=== PATIENT | female | born 1940 | race Caucasian/White ===

== ENCOUNTER → 2016-07-02 | Outpatient (CLI) | payer BC ==
[~2016-07-02] MED LIST: ANT25 PO; ASPI81TA28 PO; ATV1 PO; CINNAMON PO; CLOP1TAB15 PO; CLTP PO; COLE1TAB PO; CRANBERRY CAPS PO; CYAN10005 PO; CYCL10TA6 PO; FURO-85 PO; FURO20TA PO; IMD/2 PO; METO25TA56 PO; OMEG10007 PO; PRLSR20 PO; RANI300T2 PO; RXC5 PO; TRAM-453 PO; VITAMIN D 3 PO; [UNRECOGNIZED DRUG - CODE] PO
[2016-07-02 18:10] LABS: BASO % 0.4 %; BASO ABS # 0.02 K/uL (0-0.2); COMPLETE YES; EOS % 1.9 %; HEMATOCRIT 38.5 % (37-47); LYMPH ABS # 1.55 K/uL (1.2-3.4); MEAN CELL VOLUME 92.1 fL (80-100); MEAN CORPUSCULAR HEMOGLOBIN 32.1 pg (25-34); MEAN CORPUSCULAR HGB CONC 34.8 g/dl (32-36); MEAN PLATELET VOLUME 9.4 fL (7.4-10.4); MONO % 11.2 %; NEUT % 57.5 %; PLATELET COUNT 206 K/uL (130-400); RED BLOOD COUNT 4.18 M/uL (4.2-5.4); WHITE BLOOD COUNT 5.34 K/uL (4.8-10.8)
[2016-07-02 18:19] LABS: ALT/SGPT 39 U/L (12-78); AST/SGOT 42 U/L (15-37); BLOOD UREA NITROGEN 22 mg/dl (7-18); BUN/CREATININE RATIO 14.3 (10-20); CALCIUM 9.4 mg/dl (8.5-10.1); CARBON DIOXIDE 27 mmol/L (21-32); CHLORIDE 105 mmol/L (98-107); GLUCOSE 103 mg/dl (70-99); POTASSIUM 4.1 mmol/L (3.5-5.1); SODIUM 141 mmol/L (136-145)
[2016-07-02 18:29] LABS: ALB/GLOB RATIO 1.1 (0.9-2); ALKALINE PHOSPHATASE 173 U/L (45-117)
== END | disposition home or self-care (01) ==
LOC: C.LABMFLN 11:22
PROVIDERS: ATTEND Family Medicine
DX: I47.1 Supraventricular tachycardia (principal); R41.3 Other amnesia

== ENCOUNTER → 2016-07-24 | Outpatient (CLI) | payer BC ==
--- NOTE | 2016-07-24 16:18 | MAMMOGRAPHY REPORT ---
UNILATERAL LEFT DIGITAL SCREENING MAMMOGRAM TOMOSYNTHESIS WITH CAD: 07/24/2016 CLINICAL HISTORY: Annual left breast screening. Personal history of right breast cancer status post mastectomy. COMPARISON: Comparison is made to exams dated: 01/31/2011 mammogram, 11/08/2010 mammogram - [facility], 08/03/2010 mammogram, 09/06/2010 mammogram - [facility], and 2010 ultrasound - [facility]. TECHNIQUE: Breast tomosynthesis in addition to standard 2D mammography was performed. Current study was also evaluated with a Computer Aided Detection (CAD) system. BREAST COMPOSITION: There are scattered areas of fibroglandular density in the left breast. FINDINGS: There are approximately 5 lymph nodes visualized in the superior left breast, projecting over the pectoralis muscle on the MLO view. The most inferior lymph node is increased in size cassius red to prior mammograms, currently measuring 10 mm, and there is a less prominent fatty hilum when c omparing to the prior exams. Definitive characterization with targeted ultrasound is recommended. There are also possible faint grouped microcalcifications in the 12:00 left breast, warranting spot magnification views. No areas of architectural distortion or obvious new breast masses are seen. IMPRESSION: ACR BI-RADS CATEGORY 0: INCOMPLETE EVALUATION: NEED ADDITIONAL IMAGING EVALUATION The enlarged 10 mm left axillary lymph node and grouped microcalcifications in the 12:00 left breast need additional imaging evaluation. The patient will be called to schedule an appointment. Approximately 10% of breast cancers are not detected with mammography. A negative mammographic repor t should not delay biopsy if a clinically suggestive mass is present. Farzana Hinson M.D. ay/:07/24/2016 14:45:44 Engraver Tender: Kina WESTON)(Og), [facility] letter sent: Addl Imaging 0 BI-RADS Code: ACR BI-RADS Category 0: Incomplete Evaluation: Need Additional Imaging Evaluation
== END | disposition home or self-care (01) ==
LOC: C.MAMM 13:18
PROVIDERS: ATTEND Family Medicine
DX: Z12.31 Encounter for screening mammogram for malignant neoplasm of breast (principal); R59.0 Localized enlarged lymph nodes; R92.0 Mammographic microcalcification found on diagnostic imaging of breast

== ENCOUNTER → 2016-08-02 | Outpatient (CLI) | payer BC ==
--- NOTE | 2016-08-03 07:31 | MAMMOGRAPHY REPORT ---
UNILATERAL LEFT DIGITAL DIAGNOSTIC MAMMOGRAM AND TARGETED LEFT ULTRASOUND: 08/02/2016 CLINICAL HISTORY: Callback from screening mammogram for left breast calcifications and left axillary lymph node. TECHNIQUE: Spot magnification left CC and ML views were obtained. COMPARISON: Comparison is made to exams dated: 07/24/2016 mammogram - [facility], 09/06/2010 mammogram - [facility], 01/31/2011 mammogram, 11/08/2010 mammogram - [facility], and 08/03/2010 mammogram - [facility]. Comparison is also m deonna to prior outside mammograms dated 09/02/2013, 05/13/2012, 08/16/2011, 04/08/2009, 04/01/2008.. BREAST COMPOSITION: There are scattered areas of fibroglandular density in the left breast. FINDINGS: Spot magnification views of the left breast demonstrate monomorphic punctate calcificatio ns seen scattered throughout the left breast, best seen on the cc spot magnification views. When co mpared to prior exams, the calcifications are likely not significantly changed compared to similar t o prior exams including the 04/08/2009 exam, although it is difficult to make an accurate comparison due to differences in mammographic technique between the current and prior exams. Given the benign morphology and distribution and possible stability, the calcifications are probably benign. Targeted ultrasound was performed of the left axilla to evaluate the left axillary lymph nodes. The re is an axillary lymph node in the left axilla which measures 7 mm. This retains a normal fatty hi lum and has a uniform cortical thickness of approximately 2 mm, within normal limits. This correspo nds with the lymph node seen mammographically which appears more prominent compared to prior exams. Given that this has a normal morphology on ultrasound, it is probably benign. Other morphologicall y normal lymph nodes are seen within the left axilla, with no clear adenopathy evident. IMPRESSION: ACR-BI-RADS CATEGORY 3: PROBABLY BENIGN, TARGETED ULTRASOUND ACR-BI-RADS CATEGORY 3: DC OBABLY BENIGN 1. Scattered punctate benign-appearing calcifications within the left breast are likely stable dati ng back to at least the the 2008 exam, and are likely more conspicuous due to differences in mammogr aphic technique. Recommend follow-up diagnostic mammograms in 6 months to compare stability on spot magnification views. 2. The prominent left axillary lymph node appears morphologically normal on ultrasound with a víctor l cortical thickness, and is probably benign. Recommend follow-up diagnostic mammograms and possibl e ultrasound in 6 months to confirm stability. The patient has been verbally notified of the results. Approximately 10% of breast cancers are not detected with mammography. A negative mammographic repor t should not delay biopsy if a clinically suggestive mass is present. Carmen Franklin M.D. ah/:08/02/2016 15:06:09 Desk Attendant: Liliana ALFONSO(R)(M), [facility] letter sent: Follow Up Recommended 3 BI-RADS Code: ACR-BI-RADS Category 3: Probably Benign Ultrasound BI-RADS: ACR-BI-RADS Category 3: P robably Benign
== END | disposition home or self-care (01) ==
LOC: C.MAMM 13:34
PROVIDERS: ATTEND Family Medicine
DX: R92.1 Mammographic calcification found on diagnostic imaging of breast (principal)

== ENCOUNTER → 2016-08-30 | Outpatient (CLI) | payer BC ==
[~2016-08-30] MED LIST changes: +ATV/1 PO; +CALC500C70 PO; +MECL1TAB42 PO
[2016-08-30 17:48] LABS: HEMATOCRIT 39.3 % (37-47); MEAN CELL VOLUME 90.8 fL (80-100); MEAN CORPUSCULAR HEMOGLOBIN 31.2 pg (25-34); MEAN CORPUSCULAR HGB CONC 34.4 g/dl (32-36); MEAN PLATELET VOLUME 9.4 fL (7.4-10.4); PLATELET COUNT 210 K/uL (130-400); RED BLOOD COUNT 4.33 M/uL (4.2-5.4); WHITE BLOOD COUNT 6.65 K/uL (4.8-10.8)
[2016-08-30 18:05] LABS: BLOOD UREA NITROGEN 30 mg/dl (7-18); BUN/CREATININE RATIO 21.3 (10-20); CALCIUM 9.4 mg/dl (8.5-10.1); CARBON DIOXIDE 27 mmol/L (21-32); CHLORIDE 104 mmol/L (98-107); GLUCOSE 107 mg/dl (70-99); POTASSIUM 4.3 mmol/L (3.5-5.1); SODIUM 138 mmol/L (136-145)
[2016-08-30 18:06] LABS: PHOSPHORUS 3.3 mg/dl (2.5-4.9)
== END | disposition home or self-care (01) ==
LOC: C.LABMFLN 09:13
PROVIDERS: ATTEND Internal Medicine Nephrology
DX: I12.9 Hypertensive chronic kidney disease with stage 1 through stage 4 chronic kidney disease, or unspecified chronic kidney disease (principal); E55.9 Vitamin D deficiency, unspecified; N18.3 Chronic kidney disease, stage 3 (moderate); R60.9 Edema, unspecified

== ENCOUNTER → 2016-08-31 | Outpatient (CLI) | payer BC ==
[2016-08-31 17:49] LABS: URINE APPEARANCE CLEAR (CLEAR); URINE BILIRUBIN NEG (NEG); URINE COLOR YELLOW; URINE EPITHELIAL CELL AUTO 0-5 /lpf (0-5); URINE NITRITE NEG (NEG); URINE SPECIFIC GRAVITY 1.019 (1.000-1.030); UROBILINOGEN NEG (NEG)
[2016-08-31 17:53] LABS: MANUAL MICROSCOPIC REQUIRED? NO; REVIEW REQ? NO
[2016-08-31 18:08] LABS: URINE PROTIEN/CREAT RATIO 0.1 (0-0.2); URINE TOTAL PROTEIN 12.7 mg/dl (0-11.9)
== END | disposition home or self-care (01) ==
LOC: C.LABMFLN 10:39
PROVIDERS: ATTEND Internal Medicine Nephrology
DX: N18.3 Chronic kidney disease, stage 3 (moderate) (principal); R60.9 Edema, unspecified; I12.9 Hypertensive chronic kidney disease with stage 1 through stage 4 chronic kidney disease, or unspecified chronic kidney disease; E55.9 Vitamin D deficiency, unspecified

== ENCOUNTER → 2016-10-15 | Outpatient (CLI) | payer BC ==
[~2016-10-15] MED LIST changes: +HYDR-5688 PO; +TRAM-10 PO
[2016-10-15 15:43] LABS: INFLUENZA A PCR Neg for Influ A (NEG); INFLUENZA B PCR Neg for Influ B (NEG)
== END | disposition home or self-care (01) ==
LOC: C.LABMFLN 08:32
PROVIDERS: ATTEND Physician Assistant
DX: R05 Cough (principal); R68.89 Other general symptoms and signs

== ENCOUNTER → 2017-02-06 | Outpatient (CLI) | payer BC ==
--- NOTE | 2017-02-07 14:04 | MAMMOGRAPHY REPORT ---
UNILATERAL LEFT DIGITAL DIAGNOSTIC MAMMOGRAM TOMOSYNTHESIS WITH CAD AND TARGETED LEFT ULTRASOUND: 02/06 CLINICAL HISTORY: Six-month follow-up of left breast calcifications and left breast lymph node. TECHNIQUE: Breast tomosynthesis in addition to standard 2D mammography was performed. Current study was also evaluated with a Computer Aided Detection (CAD) system. Left CC and MLO 2-D and tomosynthes is images and spot magnification left CC and ML images were obtained. COMPARISON: Comparison is made to exams dated: 08/02/2016 ultrasound, 08/02/2016 mammogram, 07/24/2016 ma mmogram, 01/31/2011 mammogram, 11/08/2010 mammogram - [facility], and 09/06/2010 mammogr am - [facility]. BREAST COMPOSITION: The tissue of the left breast is heterogeneously dense, which may obscure small masses. FINDINGS: The previously described left axillary lymph node has increased in size mammographically, currently measuring 2.1 x 1.7 cm, previously measuring 10 x 9 mm. There is possible left areolar ski n thickening which is new from prior exams. Spot magnification views of the left breast again demons trate punctate benign-appearing calcifications scattered throughout the left breast, not significantl y changed compared to the August 2016 exam and likely present dating back to the 2008 exam. The re mainder of the left breast is stable compared to prior exams, without suspicious masses, calcificatio ns, or areas of architectural distortion noted. A biopsy marker clip is again noted in the left uppe r outer quadrant. Targeted ultrasound was performed of the left axilla, which shows an abnormal left axillary lymph nod e which is increased compared to prior exams and demonstrates abnormal cortical thickening, currently measuring 2.2 x 1.8 x 1.2 cm. A few other smaller morphologically abnormal lymph nodes are also see n which demonstrate cortical thickening and are increased compared to prior exams. Findings are inde terminate and ultrasound-guided core needle biopsy is recommended for further evaluation. Targeted ultrasound was performed of the subareolar and periareolar region, which shows no clear mass or other suspicious sonographic abnormality. On clinical exam, the left nipple was partially invert ed and the nipple and areola are somewhat nodular. The patient was unclear if this is the way her ni pple areolar complex normally appears. IMPRESSION: ACR BI-RADS CATEGORY 4C: MODERATE SUSPICION FOR MALIGNANCY, TARGETED ULTRASOUND ACR BI-R ADS CATEGORY 4C: MODERATE SUSPICION FOR MALIGNANCY 1. Abnormal left axillary lymph nodes, increased compared to the prior August 2016 exam. The larg est lymph node measures 2.2 cm in size. Findings are suspicious and ultrasound guided core needle bi opsy is recommended for further evaluation. 2. Punctate benign-appearing calcifications scattered throughout the left breast are not significant ly changed compared to the Aug 2016 and likely also the 2008 exams. However, given the abnormal left axillary lymph nodes, stereotactic biopsy is recommended to rule out the possibility of DCIS. 3. Possible mild left areolar thickening mammographically. On clinical exam the left nipple is part ially inverted and the left nipple-areolar complex is somewhat nodular in appearance; the patient was unsure if this is the way her nipple normally appears. No suspicious subareolar mass is noted on ul trasound. Recommend clinical follow-up. Based on the results of the left breast/axillary biopsies, the patient may need a biopsy by a surgeon for further evaluation. A phone call was made to the physician's office to confirm faxed results were received. The patient has been verbally notified of the results. She tentatively scheduled the biopsies before leaving the department. I will leave it up to her physician if she can safely discontinue Plavix for 5-7 days p rior to the procedures. Approximately 10% of breast cancers are not detected with mammography. A negative mammographic report should not delay biopsy if a clinically suggestive mass is present. Carmen Franklin M.D. ah/:02/07/2017 07:53:30 Television Receiver Analyzer: Cassandra ALFONSO(Jewel)(M), [facility] letter sent: Abnormal 4/5 BI-RADS Code: ACR BI-RADS Category 4C: Moderate Suspicion For Malignancy Ultrasound BI-RADS: ACR BI- RADS Category 4C: Moderate Suspicion For Malignancy
== END | disposition home or self-care (01) ==
LOC: C.MAMM 13:15
PROVIDERS: ATTEND Family Medicine
DX: Z90.11 Acquired absence of right breast and nipple (principal); R92.1 Mammographic calcification found on diagnostic imaging of breast; R91.1 Solitary pulmonary nodule; R59.0 Localized enlarged lymph nodes

== ENCOUNTER → 2017-02-15 | Outpatient (CLI) | payer BC ==
--- NOTE | 2017-02-15 12:36 | Discharge Instructions ---
Discharge Instructions Procedure Procedure Date: Feb 15, 2017. Reason for visit: Left Calcifications/Us Core Bx L Axillary Ln. Discharge Discharge Date: Feb 15, 2017. Discharge Diagnosis: status post breast biopsy Instructions Activity Recommendations: Additional Limitations (see below) Return to School/Work: no limitations Recommended Home Diet: No Limitations Provider Instructions: ACTIVITY RECOMMENDATIONS: * No lifting, pushing, pulling or exercising the affected side for three days. RETURN TO SCHOOL/WORK: * You may return to work/school after the procedure, but do not perform any strenuous activities for 24 to 48 hours. MEDICATIONS: * Tylenol (two 325 mg) every four to six hours if needed for mild pain (if not allergic to Tylenol). DIET: * Resume previous diet. SPECIAL CARE INSTRUCTIONS: * Keep biopsy site dry for 24 hours. May shower after 24 hours, but do not soak (bathe) incision. * May remove Tegaderm (plastic patch) tomorrow AFTER showering. * Leave the steri-strips on for one week. Allow the steri-strips to fall off by themselves. If not off after one week, you may remove them. You may place a Bandaid crosswise over the strips, if desired. * Apply ice 10 minutes on and 10 minutes off as needed. * Wear a bra at bedtime to sleep more comfortably for 2-3 days. * Your referring physician should have the results after approximately 5 to 7 business days. * Call for unusual bleeding, fever, drainage, etc or if you have any questions call during normal business hours or after hours call Dr Franklin, [phone]. FOLLOW UP VISIT: Follow-up with Referring Physician as scheduled. Allergies Coded Allergies: Amoxicillin (Verified Allergy, Unknown, hives, 12/22/14) Azithromycin (Verified Allergy, Unknown, hives, 12/22/14) Clavulanic Acid (Verified Allergy, Unknown, hives, 12/22/14) Ketorolac Tromethamine (Verified Allergy, Unknown, 'increased bleeding', ) per pt, had bleeding at epidural site and was told it was d/t toradol Meperidine (Verified Allergy, Unknown, HIVES, 12/22/14) Penicillins (Unverified Allergy, Unknown, hives, 12/22/14) Sulfa Drugs (Verified Allergy, Unknown, hives, 12/22/14) Dexamethasone (Verified Adverse Reaction, Severe, Shortness of Breath, throat constriction, 12/23/14) Codeine (Unverified Adverse Reaction, Unknown, NAUSEA AND VOMITING, ) Lolly Castillo Recommendations: Call your doctor if: * Temperature above 101 degrees * Pain not relieved by pain medicine ordered * There is increased drainage or redness from any incision * You have any unanswered questions or concerns. Your Doctors Instructions noted above were prepared by provider Carmen Franklin. Patient Signature Section: Patient Instructions Signature Page Marilyn Thao Patient (or Guardian) Signature/Date: I have read and understand the instructions given to me by my caregivers. Caregiver/RN/Doctor Signature/Date: The above-named patient and/or guardian has received patient instructions on this date. + Original Patient Signature Page (only) stays with chart. Please make copy for patient.
--- NOTE | 2017-02-15 14:30 | MAMMOGRAPHY REPORT ---
STEREOTACTIC GUIDED BIOPSY LEFT BREAST: 02/15/2017 CLINICAL HISTORY: Indeterminate calcifications scattered within the left breast. PATIENT CONSENT: The procedure, risks, benefits, and alternatives of stereotactic biopsy with clip pl acement were discussed with the patient, and verbal and written consent was obtained. A timeout was performed immediately prior to the procedure. PROCEDURE DESCRIPTION: With stereotactic guidance, aseptic technique, and lidocaine as a local anesth etic (1% lidocaine to anesthetize the skin and 1% lidocaine with epinephrine to anesthetize the deepe r tissues), the area of concern was sampled multiple times with a 9-gauge vacuum-assisted biopsy need le (Suros Eviva). The path of approach was craniocaudal. The specimen radiograph demonstrates at le ast 2 calcifications to be present within the samples, with probable other smaller faint calcificatio ns noted. A metallic marker clip was placed at the biopsy site. This was confirmed on postprocedure mammograms. Direct pressure was applied at the biopsy site and hemostasis was readily achieved. Th e patient tolerated the procedure without complication. She was given wound care instructions. COMPARISON: Comparison is made to exams dated: 02/15/2017 mammogram, 02/06/2017 ultrasound, 02/06/2017 ma mmogram, 08/02/2016 ultrasound, 08/02/2016 mammogram, and 07/24/2016 mammogram - [facility]. IMPRESSION: STEREOTACTIC GUIDED BIOPSY Stereotactic biopsy of indeterminate scattered calcifications within the left breast, with clip place ment. The patient will receive pathology results from her referring provider. Carmen Franklin M.D. ah/:02/15/2017 13:09:33 Employee Training Specialist: Cassandra WESTON)(M), [facility]
--- NOTE | 2017-02-15 14:30 | MAMMOGRAPHY REPORT ---
THIS REPORT HAS BEEN AMENDED. ULTRASOUND GUIDED BIOPSY LEFT BREAST: 02/15/2017 CLINICAL HISTORY: Abnormal left axillary lymph node. PATIENT CONSENT: The procedure, risks and benefits were discussed with the patient and informed writt en consent was obtained. A timeout was performed immediately prior to the procedure. PROCEDURE DESCRIPTION: With ultrasound guidance, aseptic technique, and lidocaine as the local anesth etic (1% lidocaine to anesthetize the skin and 1% lidocaine with epinephrine to anesthetize the deepe r tissues), the dominant abnormal left axillary lymph node was sampled 3 times with a 14-gauge Achiev e biopsy needle. Immediately thereafter, with ultrasound guidance, aseptic technique, and lidocaine as the local anesthetic, a metallic localizer clip was placed within the lymph node. Direct pressure was applied to the site immediately post procedure and hemostasis was achieved. Postprocedure unila teral mammograms were performed to confirm clip placement. The patient tolerated the procedure witho ut complication. She was given wound care instructions. [facility] COMPARISON: Comparison is made to exams dated: 02/15/2017 stereotactic biopsy, 02/15/2017 mammogram, ultrasound, 02/06/2017 mammogram, and 08/02/2016 ultrasound - [facility]. IMPRESSION: ULTRASOUND GUIDED BIOPSY Ultrasound-guided core needle biopsy of one of the abnormal left axillary lymph nodes, with clip plac ement. The patient will receive pathology results from her referring provider. Carmen Franklin M.D. ah/:02/15/2017 12:38:00 Wool Grader: Nissa ALFONSO(Jewel)(M), [facility] AMENDMENT: 02/21/2017 Carmen Franklin M.D. Pathology from left breast biopsies was reviewed on 02/21/2017. 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 The pathology from left breast stereotactic biopsy yielded benign breast tissue with microcalcif ications, which is benign and concordant with the imaging appearance. Recommend oncology consultatio n for newly diagnosed lymphoma. Additionally, given the left areolar thickening mammographically, re commend surgical consultation for punch biopsy. The recommendation for surgical consultation was discussed with Dr. Miner's nurse on 02/21/2017.
--- NOTE | 2017-02-15 14:33 | MAMMOGRAPHY REPORT ---
UNILATERAL LEFT DIGITAL DIAGNOSTIC MAMMOGRAM: 02/15/2017 CLINICAL HISTORY: Status post left breast stereotactic biopsy as well as ultrasound biopsy of a left axillary lymph node. TECHNIQUE: Postprocedural left CC and ML views were obtained. COMPARISON: Comparison is made to exams dated: 02/06/2017 ultrasound, 02/06/2017 mammogram, 08/02/2016 ult rasound, 08/02/2016 mammogram, 07/24/2016 mammogram, and 01/31/2011 mammogram - [facility]. BREAST COMPOSITION: The tissue of the left breast is heterogeneously dense, which may obscure small masses. FINDINGS: A new biopsy marker clip is seen within the biopsied abnormal left axillary lymph node. A nother new biopsy marker clip is seen in the left 12:00 breast at the site of the biopsied calcificat ions. A small hematoma is seen at the stereotactic biopsy site measuring approximately 15 mm. IMPRESSION: POST PROCEDURE IMAGING FOR MARKER PLACEMENT New biopsy marker clips status post ultrasound guided biopsy of a left axillary lymph node and stereo tactic biopsy of left breast calcifications. Pathology results are pending. Approximately 10% of breast cancers are not detected with mammography. A negative mammographic report should not delay biopsy if a clinically suggestive mass is present. Carmen Franklin M.D. ah/:02/15/2017 13:34:22 Tank Setter Helper: Cassandra WESTON)(Og), [facility] BI-RADS Code: Post Procedure Imaging For Marker Placement
== END | disposition home or self-care (01) ==
LOC: C.MAMM 11:39
PROVIDERS: ATTEND Family Medicine
DX: C85.14 Unspecified B-cell lymphoma, lymph nodes of axilla and upper limb (principal); R92.0 Mammographic microcalcification found on diagnostic imaging of breast

== ENCOUNTER → 2017-03-01 | Outpatient (CLI) | payer BC ==
[2017-03-01 11:59] LABS: BASO % 0.4 %; BASO ABS # 0.02 K/uL (0-0.2); COMPLETE YES; EOS % 2.3 %; HEMATOCRIT 37.5 % (37-47); IG% 0.2 %; LYMPH % 35.9 %; LYMPH ABS # 1.89 K/uL (1.2-3.4); MEAN CELL VOLUME 91.7 fL (80-100); MEAN CORPUSCULAR HEMOGLOBIN 31.3 pg (25-34); MEAN CORPUSCULAR HGB CONC 34.1 g/dl (32-36); MEAN PLATELET VOLUME 9.5 fL (7.4-10.4); MONO % 10.1 %; NEUT % 51.1 %; PLATELET COUNT 164 K/uL (130-400); RED BLOOD COUNT 4.09 M/uL (4.2-5.4); WHITE BLOOD COUNT 5.27 K/uL (4.8-10.8)
[2017-03-01 12:38] LABS: BLOOD UREA NITROGEN 20 mg/dl (7-18); BUN/CREATININE RATIO 15.2 (10-20); CALCIUM 9.4 mg/dl (8.5-10.1); CARBON DIOXIDE 25 mmol/L (21-32); CHLORIDE 106 mmol/L (98-107); GLUCOSE 127 mg/dl (70-99); POTASSIUM 4.2 mmol/L (3.5-5.1); SODIUM 137 mmol/L (136-145)
== END | disposition home or self-care (01) ==
LOC: C.CPL 11:29
PROVIDERS: ATTEND Surgery
DX: Z01.812 Encounter for preprocedural laboratory examination (principal); L98.9 Disorder of the skin and subcutaneous tissue, unspecified

== ENCOUNTER → 2017-03-08 | Day surgery (SDC) | payer BC ==
[2017-03-01 15:26] VITALS: Ht 167.6 cm; Wt 94.5 kg
[~2017-03-08] VITALS: Ht 167.6 cm; Wt 94.5 kg
[~2017-03-08] MED LIST changes: -ASPI81TA28 PO; +ATROPINE SULFATE 0.1 MG/ML 5ML SYR IV PRN; +CLINDAMYCIN PHOS 150 MG/ML 2 ML VIAL IV SCH; +EpHEDrine SULFATE INJ 50 MG/ML AMP IV PRN; +FENTANYL CITRATE INJ 50 MCG/1 ML 2 ML VIAL ONE; +HYDROCODONE/ACETAMOPHEN 5/325MG TAB PO PRN; +LACTATED RINGER'S 1000ML 1,000 ML IV SCH; +LIDOCAINE HCL 1% 20 ML VIAL ONE; +LIDOCAINE HCL 2% 2 ML VIAL (20MG/ML) ONE; +MIDAZOLAM HCL 1 MG/ML 2ML VIAL ONE; -PRLSR20 PO; +PROPOFOL IV EMULSION 10 MG/ML 20 ML VIAL IV ONE; -RXC5 PO; +SODIUM CHLORIDE 0.9% 1000ML 1,000 ML IV SCH; +TRAMADOL HCL 50 MG TAB PO PRN; -[UNRECOGNIZED DRUG - CODE] PO
--- NOTE | 2017-03-08 10:15 | History & Physical Bridge - [place] ---
H&P Re-Evaluation Bridge Note: I have examined the patient, reviewed the History & Physical and in the interval since the performance of the History & Physical I have noted the following changes of clinical significance: No changes noted
[2017-03-08 11:47] VITALS: TEMP 36.5
--- NOTE | 2017-03-08 11:47 | [facility] Operative Report ---
Operative Report Operative Date Mar 08, 2017. Pre-Operative Diagnosis Left Breast Skin Lesion Post-Operative Diagnosis same as preop Procedure(s) Performed Left Nipple/Areola Biopsy Surgeon Java Developer Architect Surgeon(s) MARISA Condon Estimated Blood Loss 5ml Findings skin , subcu bx Specimens A: Left Breast Tissue~chromic suture on nipple (out at 1131 and in formalin at 1133) Anesthesia local/ sedation Complication(s) None Disposition Recovery Room / PACU I attest to the content of the Intraoperative Record and any orders documented therein. Any exceptions are noted below.
--- NOTE | 2017-03-08 11:55 | Discharge Instructions-SurgCtr ---
Discharge Instructions Date of Service Mar 08, 2017. Visit Reason for Visit: Left Breast Skin Lesion Discharge Discharge Diagnosis / Problem: abnormal skin Discharge Goals Goal(s): Decrease discomfort, Improve function, Improve disease control Activity Recommendations Activity Limitations: as noted below Lifting Limitations: gradually increase as tolerated Exercise/Sports Limitations: until after follow-up appointment May Resume Sexual Activity: after follow-up appointment Shower/Bathe: no limitations Driving or Machine Use: resume 1 day after discharge SPECIAL CARE INSTRUCTIONS: * Cover incisions and change daily for comfort/drainage. * May use ibuprofen for pain as tolerated. * Expect some swelling and bruising. Call your doctor if: * Temperature above 101 degrees * Pain not relieved by pain medicine ordered * There is increased drainage or redness from any incision * You have any unanswered questions or concerns [phone]. FOLLOW UP VISIT: If not already scheduled, please call the office for a follow-up visit. for next week- some suture removal OFFICE PHONE NUMBER: Dr. Nair Office Anesthesia . Post Anesthesia Instructions: If you have had General Anesthesia or IV Sedation: * Do not drive today. * Resume driving when surgeon permits. * Do not make important decisions or sign legal documents today. * Call surgeon for: 1. Temperature elevations greater than 101 degrees F. 2. Uncontrollable pain. 3. Excessive bleeding. 4. Persistent nausea and vomiting. 5. Medication intolerance (nausea, vomiting or rash). * For nausea and vomiting use only clear liquids such as: tea, soda, bouillon until nausea subsides, then gradually increase diet as tolerated. * If you have any concerns or questions, call your surgeon's office. If physician is unavailable and it is an emergency, call 911 or go to the nearest emergency room. . Diet Recommendations Home Diet: resume previous diet Procedures Procedures Performed: Left Nipple/Areola Biopsy Pending Studies Studies pending at discharge: no Medical Emergencies . Who to Call and When: Medical Emergencies: If at any time you feel your situation is an emergency, please call 911 immediately. . Non-Emergent Contact Non-Emergency issues call your: Primary Care Provider, Surgeon . . "Provider Documentation" section prepared by Charli Nair. .
--- NOTE | 2017-03-08 12:05 | OPERATIVE REPORT ---
DATE OF OPERATION: 03/08/2017 NAME OF OPERATION: Left nipple areolar skin biopsy. PREOPERATIVE DIAGNOSIS: Abnormal skin, left breast. POSTOPERATIVE DIAGNOSIS: Same. STAFF SURGEON: Dr. Nair. ANESTHESIA: 1% plain lidocaine with sedation. DESCRIPTION OF PROCEDURE: The patient was brought into the operating room and placed on the operating table in the supine position. Her left breast was prepped and draped in the usual fashion. An ellipse of skin was taken at the 9 o'clock position in the left nipple areolar area, exercising a small portion of the areola and nipple, marking it with a chromic suture medially on the nipple. At this point, the deep tissues were reapproximated using 4-0 chromic catgut suture and then, the skin reapproximated using interrupted 5-0 Prolene suture. The patient was transferred to recovery room in stable condition. I attest to the content of the Intraoperative Record and any orders documented therein. Any exception s are noted below.
[2017-03-08 12:19] VITALS: BP 127/61; PULSE 69; O2SAT 96
--- NOTE | 2017-03-08 12:21 | Anesthesia Progress Nt - [facility] ---
Anesthesia Post Op Note Date & Time Mar 08, 2017 at 12:21 Vital Signs Pain Intensity: 0 Vital Signs Past 12 Hours Date Time Temp Pulse Resp B/P (MAP) Pulse Ox O2 Delivery O2 Flow Rate FiO2 03/08/17 11:47 36.5 67 16 134/71 (92) 96 Room Air 03/08/17 08:18 36.4 70 20 131/68 (89) 96 Room Air Notes Mental Status: alert / awake / arousable, participated in evaluation Pt Amnestic to Procedure: Yes Nausea / Vomiting: adequately controlled Pain: adequately controlled Airway Patency, RR, SpO2: stable & adequate BP & HR: stable & adequate Hydration State: stable & adequate Anesthetic Complications: no major complications apparent
--- NOTE | 2017-03-08 12:35 | MAMMOGRAPHY REPORT ---
ULTRASOUND OF LEFT BREAST: 03/08/2017 CLINICAL HISTORY: Left areolar thickening mammographically. Newly diagnosed lymphoma on core needle biopsy of a left axillary lymph node. The patient presents for skin marking prior to areolar biopsy. COMPARISON: Comparison is made to exams dated: 02/15/2017 ultrasound biopsy, 02/15/2017 stereotactic b iopsy, 02/15/2017 mammogram, and 02/06/2017 ultrasound - [facility]. TECHNIQUE: Real-time targeted ultrasound of the left breast was performed. FINDINGS: Real-time, high resolution targeted ultrasound was performed of the left areolar region. Areolar thickening is noted on ultrasound; the area of greatest thickening is seen within the medial areola at approximately 9:00, with areolar thickening measuring 4 mm in this region. A joel was plac ed on the skin at this site with a marker to assist the surgeon. IMPRESSION: Ultrasound for skin joel prior to left areola biopsy. A joel was placed on the skin at the site of g reatest areolar thickening at approximately 9:00. Carmen Franklin M.D. ah/:03/08/2017 08:46:15 Counter Molder: Nissa Cortes, [facility] BI-RADS Code: n/a
== END | disposition home or self-care (01) ==
LOC: X.SURG 08:05
PROVIDERS: ATTEND Surgery
DX: N60.42 Mammary duct ectasia of left breast (principal); K21.9 Gastro-esophageal reflux disease without esophagitis; N18.3 Chronic kidney disease, stage 3 (moderate); E78.5 Hyperlipidemia, unspecified; I12.9 Hypertensive chronic kidney disease with stage 1 through stage 4 chronic kidney disease, or unspecified chronic kidney disease; Z86.73 Personal history of transient ischemic attack (TIA), and cerebral infarction without residual deficits; Z82.49 Family history of ischemic heart disease and other diseases of the circulatory system; Z79.899 Other long term (current) drug therapy

== ENCOUNTER → 2017-03-27 | Outpatient (CLI) | payer BC ==
[~2017-03-27] MED LIST changes: -ATROPINE SULFATE 0.1 MG/ML 5ML SYR IV PRN; -CLINDAMYCIN PHOS 150 MG/ML 2 ML VIAL IV SCH; -EpHEDrine SULFATE INJ 50 MG/ML AMP IV PRN; -FENTANYL CITRATE INJ 50 MCG/1 ML 2 ML VIAL ONE; +GADAVIST IV PRN; -HYDROCODONE/ACETAMOPHEN 5/325MG TAB PO PRN; -LACTATED RINGER'S 1000ML 1,000 ML IV SCH; -LIDOCAINE HCL 1% 20 ML VIAL ONE; -LIDOCAINE HCL 2% 2 ML VIAL (20MG/ML) ONE; -MIDAZOLAM HCL 1 MG/ML 2ML VIAL ONE; -PROPOFOL IV EMULSION 10 MG/ML 20 ML VIAL IV ONE; -SODIUM CHLORIDE 0.9% 1000ML 1,000 ML IV SCH; -TRAM-453 PO; -TRAMADOL HCL 50 MG TAB PO PRN
--- NOTE | 2017-03-27 10:18 | DIAGNOSTIC IMAGING REPORT ---
Brain MRI WITH AND WITHOUT CONTRAST HISTORY: Dizziness. LYMPHOMA TECHNIQUE: Multiplanar multisequence MRI of the brain was performed both before and after the intravenous administration of contrast. COMPARISON STUDY: None. FINDINGS: There is no mass, hematoma, midline shift, or acute infarct. The paranasal sinuses are clear. The mastoid air cells are clear. The ventricles and sulci demonstrate mild age-related involutional changes. Scattered foci of T2 hyperintensity seen within the periventricular and subcortical white matter are nonspecific but suggestive of mild microvascular ischemic changes. The major vascular flow voids at the skull base are well-maintained. Punctate old lacunar infarct seen within the right cerebellar hemisphere. No abnormal enhancement. IMPRESSION: No acute intracranial abnormality. Scattered foci of T2 hyperintensity seen within the periventricular and subcortical white matter are nonspecific but favor microvascular ischemic change. Electronically signed by: Braxton Capps M.D. 03/27/2017 10:16 AM Dictated Date/Time: 03/27/2017 10:06 AM
== END | disposition home or self-care (01) ==
LOC: C.MRI 09:20
PROVIDERS: ATTEND Internal Medicine Hematology & Oncology
DX: C83.34 Diffuse large B-cell lymphoma, lymph nodes of axilla and upper limb (principal)

== ENCOUNTER → 2017-03-27 | Outpatient (CLI) | payer BC ==
[~2017-03-27] MED LIST changes: -GADAVIST IV PRN
--- NOTE | 2017-03-27 10:16 | DIAGNOSTIC IMAGING REPORT ---
PET/CT SKULL-THIGH CLINICAL HISTORY: 76 years-old Female with LYMPHOMA. Initial staging examination patient with reported lymphoma. Hx of right breast cancer 1993. Diagnosed with lymphoma March 2017. Prominent axillary lymph nodes were seen on breast mammogram with diagnosed large B-cell lymphoma. History of prior right mastectomy, lung lobectomy and hysterectomy. Left antecubital fossa was used as the injection site. COMPARISON: None available. TECHNIQUE: The patient was injected with 13.63 mCi of F-18 fluorodeoxyglucose (FDG) and an emission scan was performed from the skull vertex to the toes. Noncontrast CT was performed for attenuation correction and anatomic localization. The blood glucose level was 100 mg/dl. FINDINGS: HEAD AND NECK: There is a physiologic distribution of activity, with no hypermetabolic foci. Mildly increased FDG uptake within the region of the glottis is noted, likely secondary to recent speech. CHEST: There are multiple prominent and mildly enlarged left axillary lymph nodes present. 9 mm lymph node on image 80 of series 2 is noted with slightly increased FDG uptake demonstrating SUV max of 1.3. There is a large lobulated lower left axillary lymph node with biopsy clip present on image 93 of series 2, 2.1 x 1.5 cm which is markedly FDG avid with SUV max of 6.6. Small nonenlarged lymph node just below this large lymph node is seen with mildly increased metabolic activity with SUV max of 1.4 seen on image 88 measuring 7 mm in short axis. Otherwise, there is a physiologic distribution of activity, with no hypermetabolic mediastinal, hilar or pulmonary foci. ABDOMEN AND PELVIS: There is a physiologic distribution of activity within the liver, spleen, adrenal glands, gastrointestinal and urinary tracts, with no hypermetabolic foci. No splenomegaly. MUSCULOSKELETAL SYSTEM AND EXTREMITIES: There is a physiologic distribution of activity within the bone marrow, with no hypermetabolic foci. ADDITIONAL CT FINDINGS: Prior right mastectomy and right axillary node dissection. There is a focal calcification of the central left breast. A few calcified mediastinal lymph nodes are present. Coronary arterial calcifications are noted. There is a 7 x 8 mm area of pleural-based nodularity involving the inferior segment lingula on image 90 of series 2 without associated increased FDG uptake. This is also an area of likely pleural parenchymal scarring. No additional suspicious pulmonary nodules are identified. Prior cholecystectomy. Prior hysterectomy. There is moderate atherosclerosis of the abdominal aorta. No bulky adenopathy of the abdomen or pelvis identified. No bowel obstruction. Solid organs are unremarkable. Soft tissues are unremarkable. Extensive posterior fusion hardware involves the thoracolumbar spine. IMPRESSION: 1. Multiple prominent and mildly enlarged hypermetabolic left axillary lymph nodes are seen with index node measuring up to 2.1 x 1.5 cm which was previously biopsied demonstrating markedly hypermetabolic activity compatible with patient's known lymphoma. 2. No additional adenopathy or suspicious hypermetabolic foci identified in the chest, abdomen or pelvis. No splenomegaly. 3. 8 mm pleural-based area of nodularity within the inferior segment lingula with adjacent pleural parenchymal scarring does not demonstrate increased FDG activity and also is likely related to scarring however may be below resolution in size for PET. Attention at follow-up is needed as no comparison is available to assess for chronicity. 4. Postsurgical changes as above with prior right mastectomy, right axillary node dissection, cholecystectomy and hysterectomy. The above report was generated using voice recognition software. It may contain grammatical, syntax or spelling errors. Electronically signed by: Galindo Barroso M.D. 03/27/2017 10:14 AM Dictated Date/Time: 03/27/2017 9:56 AM
== END | disposition home or self-care (01) ==
LOC: C.PET 06:44
PROVIDERS: ATTEND Internal Medicine Hematology & Oncology
DX: C83.34 Diffuse large B-cell lymphoma, lymph nodes of axilla and upper limb (principal)

== ENCOUNTER → 2017-04-01 | Outpatient (CLI) | payer BC ==
[~2017-04-01] MED LIST changes: -HYDR-5688 PO; -TRAM-10 PO
[2017-04-01 17:59] LABS: MEAN CELL VOLUME 91.1 fL (80-100); MEAN CORPUSCULAR HEMOGLOBIN 30.9 pg (25-34); MEAN CORPUSCULAR HGB CONC 33.9 g/dl (32-36); MEAN PLATELET VOLUME 9.3 fL (7.4-10.4); PLATELET COUNT 184 K/uL (130-400); RED BLOOD COUNT 4.17 M/uL (4.2-5.4); WHITE BLOOD COUNT 6.37 K/uL (4.8-10.8)
[2017-04-01 18:10] LABS: BLOOD UREA NITROGEN 22 mg/dl (7-18); BUN/CREATININE RATIO 18.2 (10-20); CALCIUM 9.8 mg/dl (8.5-10.1); CARBON DIOXIDE 22 mmol/L (21-32); CHLORIDE 105 mmol/L (98-107); GLUCOSE 98 mg/dl (70-99); PHOSPHORUS 2.9 mg/dl (2.5-4.9); POTASSIUM 3.9 mmol/L (3.5-5.1); SODIUM 138 mmol/L (136-145)
== END | disposition home or self-care (01) ==
LOC: C.LABMFLN 13:20
PROVIDERS: ATTEND Internal Medicine Nephrology
DX: I12.9 Hypertensive chronic kidney disease with stage 1 through stage 4 chronic kidney disease, or unspecified chronic kidney disease (principal); E55.9 Vitamin D deficiency, unspecified; N18.3 Chronic kidney disease, stage 3 (moderate); N20.0 Calculus of kidney

== ENCOUNTER → 2017-04-02 | Outpatient (CLI) | payer BC ==
[~2017-04-02] MED LIST changes: +HYDR-5688 PO; +TRAM-10 PO
[2017-04-02 18:11] LABS: URINE APPEARANCE CLEAR (CLEAR); URINE BILIRUBIN NEG (NEG); URINE COLOR YELLOW; URINE NITRITE NEG (NEG); URINE SPECIFIC GRAVITY 1.017 (1.000-1.030); UROBILINOGEN NEG (NEG)
[2017-04-02 18:15] LABS: URINE PROTIEN/CREAT RATIO 0.2 (0-0.2); URINE TOTAL PROTEIN 6.8 mg/dl (0-11.9)
[2017-04-02 18:46] LABS: MANUAL MICROSCOPIC REQUIRED? NO; REVIEW REQ? NO
== END | disposition home or self-care (01) ==
LOC: C.LABMFLN 15:54
PROVIDERS: ATTEND Internal Medicine Nephrology
DX: I12.9 Hypertensive chronic kidney disease with stage 1 through stage 4 chronic kidney disease, or unspecified chronic kidney disease (principal); E55.9 Vitamin D deficiency, unspecified; N18.3 Chronic kidney disease, stage 3 (moderate); N20.0 Calculus of kidney

== ENCOUNTER 2017-04-08 04:47 | Day surgery (SDC) | payer BC ==
[2017-04-04 12:30] VITALS: BMI 33.0
[~2017-04-08] VITALS: Ht 167.6 cm; Wt 92.5 kg
[~2017-04-08 04:47] MED LIST changes: -ANT25 PO; -ATV1 PO; -CLTP PO; -HYDR-5688 PO; -TRAM-10 PO
[2017-04-08 05:51] VITALS: BP 156/69; PULSE 75; TEMP 36.5; O2SAT 96; Ht 167.6 cm; Wt 92.5 kg
[2017-04-08] MEDS ORDERED: LACTATED RINGER'S 1000ML 1,000 ML IV SCH (06:00)
[2017-04-08] MEDS ORDERED: CLINDAMYCIN IV 900 MG in DEXTROSE 5% 100ML 100 ML IV SCH (06:00)
[2017-04-08] MEDS ORDERED: HEPARIN SOD (PORCINE) 1000 UNIT/ML 10 ML VIAL ONE (06:36)
[2017-04-08] MEDS ORDERED: LIDOCAINE HCL 1% 20 ML VIAL ONE (06:36)
[2017-04-08] MEDS ORDERED: CEFAZOLIN SOD 1 GM VIAL ONE (06:36)
[2017-04-08] MEDS ORDERED: THROMBIN FOR SOLN 20000 UNIT KIT ONE (06:36)
--- NOTE | 2017-04-08 06:46 | History & Physical Bridge Note ---
H&P Re-Evaluation Bridge Note: I have examined the patient, reviewed the History & Physical and in the interval since the performance of the History & Physical I have noted the following changes of clinical significance: No changes noted pt is for port placement today
[2017-04-08] MEDS ORDERED: FENTANYL CITRATE INJ 50 MCG/1 ML 2 ML VIAL ONE (06:47)
[2017-04-08] MEDS ORDERED: MIDAZOLAM HCL 1 MG/ML 2ML VIAL ONE ×2 (06:47→07:05)
[2017-04-08] MEDS ORDERED: KETAMINE HCL INJ 50 MG/ML 10 ML VIAL ONE (07:09)
[2017-04-08] MEDS ORDERED: SODIUM CHLORIDE 0.9% INJ 10 ML VIAL ONE (07:09)
[2017-04-08] MEDS ORDERED: PROPOFOL IV EMULSION 10 MG/ML 20 ML VIAL IV ONE (07:09)
[2017-04-08] MEDS ORDERED: LIDOCAINE HCL 2% 2 ML VIAL (20MG/ML) ONE (07:09)
[2017-04-08] MEDS ORDERED: EpHEDrine SULFATE INJ 50 MG/ML AMP IV PRN (07:15)
[2017-04-08] MEDS ORDERED: ATROPINE SULFATE 0.1 MG/ML 5ML SYR IV PRN (07:15)
[2017-04-08] MEDS ORDERED: FENTANYL CITRATE INJ 50 MCG/1 ML 2 ML VIAL IV PRN (07:15)
[2017-04-08] MEDS ORDERED: ONDANSETRON INJ 2 MG/ML 2 ML VIAL IV PRN ×2 (07:15→07:45)
[2017-04-08] MEDS ORDERED: PHENYLEPHRINE 100MCG/ML 5ML SYR ONE (07:25)
[2017-04-08] MEDS ORDERED: HYDR-5688 PO (07:34)
--- NOTE | 2017-04-08 07:36 | Discharge Instructions ---
Discharge Instructions Date of Service Apr 08, 2017. Visit Reason for Visit: Diffuse B-Cell Lymphoma Discharge Discharge Diagnosis / Problem: A-port placement Discharge Goals Goal(s): Improve disease control Activity Recommendations Activity Limitations: as noted below Shower/Bathe: keep incision dry (for 2 days) Driving or Machine Use: if not taking Elrama Anesthesia . Post Anesthesia Instructions: If you have had General Anesthesia or IV Sedation: * Do not drive today. * Resume driving when surgeon permits. * Do not make important decisions or sign legal documents today. * Call surgeon for: 1. Temperature elevations greater than 101 degrees F. 2. Uncontrollable pain. 3. Excessive bleeding. 4. Persistent nausea and vomiting. 5. Medication intolerance (nausea, vomiting or rash). * For nausea and vomiting use only clear liquids such as: tea, soda, bouillon until nausea subsides, then gradually increase diet as tolerated. * If you have any concerns or questions, call your surgeon's office. If physician is unavailable and it is an emergency, call 911 or go to the nearest emergency room. . Instructions / Follow-Up Instructions / Follow-Up Dr. Nair's office in 2 weeks for suture removal, call [phone] for any questions Restart Plavix tomorrow Diet Recommendations Recommended Home Diet: no limitations Procedures Procedures Performed: A port insertion Pending Studies Studies pending at discharge: no Medical Emergencies . Who to Call and When: Medical Emergencies: If at any time you feel your situation is an emergency, please call 911 immediately. . Non-Emergent Contact Non-Emergency issues call your: Surgeon Call Non-Emergent contact if: you have a fever, temperature is above 101.5, your pain is not controlled, wound has increased redness, you have any medication questions . . "Provider Documentation" section prepared by Jimmy Vásquez. .
[2017-04-08] MEDS ORDERED: HYDROCODONE/ACETAMOPHEN 5/325MG TAB PO PRN ×2 (07:45)
[2017-04-08] MEDS ORDERED: TRAMADOL HCL 50 MG TAB PO PRN (07:45)
[2017-04-08] MEDS ORDERED: TRAM-10 PO (07:48)
--- NOTE | 2017-04-08 07:49 | [facility] Operative Report ---
Operative Report Operative Date Apr 08, 2017. Pre-Operative Diagnosis Diffuse B-cell Lymphoma Post-Operative Diagnosis Diffuse B-cell Lymphoma Procedure(s) Performed A port insertion Surgeon Dr. Nair Product Specialist Surgeon(s) none Findings placed via Lt cephalic vein Specimens none per surgeon Anesthesia local/ sedation Complication(s) None Disposition Surgical ICU I attest to the content of the Intraoperative Record and any orders documented therein. Any exceptions are noted below.
--- NOTE | 2017-04-08 08:11 | DIAGNOSTIC IMAGING REPORT ---
CHEST ONE VIEW PORTABLE CLINICAL HISTORY: Chest x-ray status post A-Port catheter placement COMPARISON STUDY: 11/17/2014 FINDINGS: The cardiac images all contours remain stable. There is been interval placement of a left subclavian A-Port catheter. The tip projects over the superior vena cava near the atriocaval junction. There is no pneumothorax. There is persistent left-sided volume loss. There is an area of presumed nodular scarring in the left perihilar region. There is no lobar consolidation. There is no failure. There are no pleural effusions. There are postsurgical changes of thoracolumbar spinal rodding.[ IMPRESSION: Interval placement of a left subclavian A-Port catheter. No evidence of pneumothorax. Electronically signed by: Armando More M.D. 04/08/2017 8:09 AM Dictated Date/Time: 04/08/2017 8:08 AM
[2017-04-08 08:15] VITALS: BP 144/67; PULSE 67; TEMP 36.6; O2SAT 95
[2017-04-08 08:45] VITALS: BP 144/67; PULSE 71; O2SAT 100
--- NOTE | 2017-04-08 08:54 | Anesthesiology Progress Note ---
Anesthesia Post Op Note Date & Time Apr 08, 2017 at 08:54 Vital Signs Pain Intensity: 0 Vital Signs Past 12 Hours Date Time Temp Pulse Resp B/P (MAP) Pulse Ox O2 Delivery O2 Flow Rate FiO2 04/08/17 08:15 36.6 67 20 144/67 95 Room Air 04/08/17 08:05 36.8 63 24 131/64 99 Room Air Oxymask 04/08/17 07:55 73 18 119/56 100 Oxymask 10 04/08/17 07:46 37.4 66 17 134/59 100 Oxymask 10 04/08/17 05:51 36.5 75 20 156/69 (98) 96 Room Air Notes Mental Status: alert / awake / arousable, participated in evaluation Pt Amnestic to Procedure: Yes Nausea / Vomiting: adequately controlled Pain: adequately controlled Airway Patency, RR, SpO2: stable & adequate BP & HR: stable & adequate Hydration State: stable & adequate Anesthetic Complications: no major complications apparent
--- NOTE | 2017-04-08 10:01 | OPERATIVE REPORT ---
DATE OF OPERATION: 04/08/2017 NAME OF OPERATION: Port placement. PREOPERATIVE DIAGNOSIS: Lymphoma. POSTOPERATIVE DIAGNOSIS: Same. STAFF SURGEON: Dr. Nair. ANESTHESIA: 1% plain lidocaine with sedation. PROCEDURE: The patient was brought in the operating room and placed on the operating table in supine position. Her left chest was prepped and draped in usual fashion. Using 1% plain lidocaine, skin and subcutaneous tissue over the left deltopectoral groove were anesthetized. Incision made carrying dissection down identifying the cephalic vein, which was relatively large. It was ligated distally using 2-0 silk suture and then opened. A catheter was passed under fluoroscopy into the distal superior vena cava, secured in place using 2-0 silk suture. It was aspirated and flushed with heparinized solution. A pocket was fashioned in the subcutaneous tissue. The catheter was attached to the port. The port had been flushed and aspirated with heparinized solution. The port placed into the pocket and secured using 3-0 Prolene suture to the subcutaneous tissue. Deep tissues irrigated with antibiotic solution and then reapproximated using 2-0 chromic catgut suture then the skin was reapproximated using 4-0 nylon suture. Dressing applied and patient transferred to recovery room in stable condition. I attest to the content of the Intraoperative Record and any orders documented therein. Any exception s are noted below.
== END 2017-04-08 08:50 | disposition home or self-care (01) ==
LOC: C.ACU 04:47
PROVIDERS: ATTEND Surgery
DX: C83.30 Diffuse large B-cell lymphoma, unspecified site (principal); K21.9 Gastro-esophageal reflux disease without esophagitis; N18.3 Chronic kidney disease, stage 3 (moderate); E78.5 Hyperlipidemia, unspecified; E55.9 Vitamin D deficiency, unspecified; Z85.3 Personal history of malignant neoplasm of breast; Z86.73 Personal history of transient ischemic attack (TIA), and cerebral infarction without residual deficits; Z90.10 Acquired absence of unspecified breast and nipple; Z82.49 Family history of ischemic heart disease and other diseases of the circulatory system

== ENCOUNTER → 2017-04-12 | Outpatient (CLI) | payer BC ==
[~2017-04-12] MED LIST changes: -CLOP1TAB15 PO; +TRAM-10 PO
--- NOTE | 2017-04-12 14:10 | ECHOCARDIOGRAM REPORT ---
*NOTICE TO RECEIVING DEMOCRAT AGENCY This information is strictly Confidential and protected under [place] law. [place] law prohibits you from making any further disclosure of this information unless further disclosure is expressly permitted by the written consent of the person to whom it pertains or is authorized by law. A general authorization for the release of medical or other information is not sufficient for this purpose. Hospital accepts no responsibility if the information is made available to any other person, INCLUDING THE PATIENT. Interpretation Summary * Name: SHERI MURRAY Study Date: 04/12/2017 12:39 PM BP: 157/44 mmHg * Patient Location: [facility] HR: 69 * : 1940 (M/d/yyyy) Gender: Female Height: 67 in * Age: 76 yrs Ethnicity: [place] Weight: 203 lb * Ordering Physician: Wilver Russo * Referring Physician: Wilver Russo * Performed By: Raquel Askew RDCS * * Reason For Study: NON HODGKINS LYMPHOMA * BSA: 2.0 m2 * Patient Refused Definity at this time. She did not want an IV because she has very tough veins. Her port was just placed Saturday and she did not know if it could be accessed yet. We waited a bit to see, but she decided she did not want the Definity today. * -- Conclusions -- * There is mild concentric left ventricular hypertrophy. * Left ventricular systolic function is normal. * Grade I diastolic dysfunction, (abnormal relaxation pattern). * The left atrium is mildly dilated. Procedure Details * A complete two-dimensional transthoracic echocardiogram was performed (2D, M-mode, Doppler and color flow Doppler). Left Ventricle * The left ventricle is normal in size. * There is mild concentric left ventricular hypertrophy. * Ejection Fraction = 55-60%. * Left ventricular systolic function is normal. * Grade I diastolic dysfunction, (abnormal relaxation pattern). * The left ventricular wall motion is normal. Right Ventricle * The right ventricle is normal in size and function. Atria * The left atrium is mildly dilated. * Right atrial size is normal. Mitral Valve * The mitral valve is grossly normal. * Significant mitral regurgitation is absent. Tricuspid Valve * The tricuspid valve is not well visualized. * Significant tricuspid regurgitation is absent. Aortic Valve * The aortic valve is not well visualized. * No hemodynamically significant valvular aortic stenosis. * There is no significant aortic regurgitation. Great Vessels * The aortic root is normal size. Pericardium/Pleural * There is no pericardial effusion. MMode 2D Measurements and Calculations IVSd 1.3 cm IVSs 1.7 cm LVIDd 4.5 cm LVIDs 3.1 cm LVPWd 1.3 cm LVPWs 1.5 cm IVS/LVPW 1.0 FS 30.7 % EDV(Teich) 93.4 ml ESV(Teich) 38.9 ml EF(Teich) 58.4 % EDV(cubed) 92.4 ml ESV(cubed) 30.7 ml EF(cubed) 66.7 % % IVS thick 30.4 % % LVPW thick 17.0 % LV mass(C)d 226.3 grams LV mass(C)dI 111.2 grams/m\S\2 LV mass(C)s 190.1 grams LV mass(C)sI 93.4 grams/m\S\2 SV(Teich) 54.5 ml SI(Teich) 26.8 ml/m\S\2 SV(cubed) 61.6 ml SI(cubed) 30.3 ml/m\S\2 Ao root diam 3.4 cm Ao root area 9.3 cm\S\2 LA dimension 4.3 cm LA/Ao 1.2 Doppler Measurements and Calculations MV E max josiane 65.0 cm/sec MV A max josiane 66.3 cm/sec MV E/A 0.98 MV dec time 0.33 sec Ao V2 max 87.4 cm/sec Ao max PG 3.1 mmHg Ao max PG (full) 0.02 mmHg LV V1 max PG 3.0 mmHg LV V1 max 87.1 cm/sec
== END | disposition home or self-care (01) ==
LOC: C.CPL 12:25
PROVIDERS: ATTEND Internal Medicine Hematology & Oncology
DX: C83.34 Diffuse large B-cell lymphoma, lymph nodes of axilla and upper limb (principal)

== ENCOUNTER → 2017-06-12 | Outpatient (CLI) | payer BC ==
--- NOTE | 2017-06-12 13:54 | DIAGNOSTIC IMAGING REPORT ---
PET/CT SKULL-THIGH CLINICAL HISTORY: LYMPHOMA COMPARISON STUDY: 03/27/2017 FINDINGS: The patient was injected with 14 mCi of F 18 labeled FDG. Following the standard induction phase, PET/CT scanning was performed from the skull base to the upper thigh region. Uptake within neck is felt to be physiologic. Uptake within the thorax is felt to be physiologic. There is been interval resolution of the previous identified FDG avid left axillary lymph node. There is a stable 7 mm pleural-based nodule within the lingula. Again evident is adjacent parenchymal scarring. There is no pathologic FDG activity. There is physiologic urinary tract and bowel activity within the abdomen and pelvis. There is no pathologic marcela activity. There is increased activity within the right gluteal musculature. There is no corresponding mass. This activity is likely secondary to muscular activity. Since the prior study, the patient has developed diffuse bone activity. This may be secondary to treatment related marrow stimulation. Clinical correlation in this regard is advocated. IMPRESSION: 1. No evidence of pathologic marcela activity 2. Interval development of diffuse bony activity. This may be secondary to treatment related marrow stimulation clinical correlation in this regard is advocated 3. Interval resolution of the previous identified FDG avid left axillary lymph node 4. Stable 7 mm pleural-based nodular focus within the lingula. This is not FDG avid Electronically signed by: Armando More M.D. 06/12/2017 1:53 PM Dictated Date/Time: 06/12/2017 1:44 PM
== END | disposition home or self-care (01) ==
LOC: C.PET 09:59
PROVIDERS: ATTEND Internal Medicine Hematology & Oncology
DX: C83.34 Diffuse large B-cell lymphoma, lymph nodes of axilla and upper limb (principal)

== ENCOUNTER → 2017-06-17 | Outpatient (CLI) | payer BC ==
[2017-06-17 18:25] LABS: BASO % 0.5 %; BASO ABS # 0.03 K/uL (0-0.2); COMPLETE YES; HEMATOCRIT 33.6 % (37-47); IG% 0.5 %; LYMPH % 7.2 %; LYMPH ABS # 0.45 K/uL (1.2-3.4); MEAN CELL VOLUME 96.6 fL (80-100); MEAN CORPUSCULAR HEMOGLOBIN 33.3 pg (25-34); MEAN CORPUSCULAR HGB CONC 34.5 g/dl (32-36); MEAN PLATELET VOLUME 9.7 fL (7.4-10.4); MONO % 21.9 %; NEUT % 69.9 %; PLATELET COUNT 222 K/uL (130-400); RED BLOOD COUNT 3.48 M/uL (4.2-5.4); WHITE BLOOD COUNT 6.25 K/uL (4.8-10.8)
[2017-06-17 18:43] LABS: ALT/SGPT 20 U/L (12-78); AST/SGOT 24 U/L (15-37); BLOOD UREA NITROGEN 13 mg/dl (7-18); BUN/CREATININE RATIO 9.5 (10-20); CALCIUM 9.5 mg/dl (8.5-10.1); CARBON DIOXIDE 23 mmol/L (21-32); CHLORIDE 102 mmol/L (98-107); CREATININE 1.41 mg/dl (0.60-1.20); GLUCOSE 157 mg/dl (70-99); MAGNESIUM 1.7 mg/dl (1.8-2.4); POTASSIUM 3.3 mmol/L (3.5-5.1); SODIUM 134 mmol/L (136-145)
[2017-06-17 18:45] LABS: ALB/GLOB RATIO 1.1 (0.9-2); ALKALINE PHOSPHATASE 112 U/L (45-117)
== END | disposition home or self-care (01) ==
LOC: C.LABMFLN 15:46
PROVIDERS: ATTEND Family Medicine
DX: C83.34 Diffuse large B-cell lymphoma, lymph nodes of axilla and upper limb (principal)

== ENCOUNTER 2017-06-24 18:25 | Inpatient (IN) | payer BC, OTHER ==
[~2017-06-24] VITALS: Ht 167.6 cm; Wt 88.2 kg
--- NOTE | 2017-06-24 18:54 | EMERGENCY ROOM VISIT NOTE ---
History Report prepared by Dyllan: Wilver De Jesus Under the Supervision of: Dr. Enrique Gage M.D. First contact with patient: 18:34 Chief Complaint: RECTAL BLEEDING Stated Complaint: RECTAL BLEEDING, FALL, KNOT OF BACK OF HEAD,DIZZY History of Present Illness The patient is a 76 year old female who presents to the Emergency Room with complaints of constant bloody stool occurring today. The patient states that she was in the emergency department earlier today following a fall. She notes that she was not injured from the fall and was discharged home. She reports that she has been having persistent diarrhea due to chemotherapy for her non Hodgkin's lymphoma. The patient states that when she went to the bathroom today , there was "bright red blood on the toilet paper when she wiped." Per her son, there was a large amount of blood. The patient also complains of mild abdominal pain but currently feels fine otherwise. She denies any loss of consciousness and back pain. She notes that she also has a history of stage 3 chronic kidney disease and has had a stroke, for which she takes Plavix. She reports that she has no history of hemorrhoids. Source of History: patient, family Onset: today Position: other (rectum) Quality: other (bloody stool) Timing: constant Associated Symptoms: + abdominal pain (mild), + diarrhea, No LOC, No back pain Review of Systems See HPI for pertinent positives & negatives. A total of 10 systems reviewed and were otherwise negative. Past Medical & Surgical Medical Problems: (1) Non-Hodgkin lymphoma (2) Stage 3 chronic kidney disease (3) Stroke Family History No pertinent family history stated. Social History Smoking Status: Never Smoker Marital Status: Housing Status: lives with family Occupation Status: retired Current/Historical Medications Scheduled Acetaminophen (Tylenol), 1,000 MG PO BID Calcium Carbonate-Vitamin D (Calcium 600 + D), 1 TAB PO DAILY Cholecalciferol (Vitamin D3), 1,000 INTER.UNIT PO DAILY Cinnamon (Cinnamon), 1,000 MG PO DAILY Clopidogrel Bisulfate (Clopidogrel), 75 MG PO DAILY Colestipol Hcl (Colestid), 2 GM PO QAM Cyclobenzaprine Hcl (Flexeril), 10 MG PO HS Doxycycline Hyclate (Doxycycline Hyclate), 100 MG PO BID Fish Oil ([place]-3), 1 CAP PO QAM Furosemide (Lasix), 40 MG PO QAM Furosemide (Lasix), 20 MG PO QPM Metoprolol Tartrate (Lopressor), 25 MG PO BID Ranitidine (Zantac), 300 MG PO BID Scheduled PRN Loperamide Hcl (Imodium), 2 MG PO TID PRN for Diarrhea Lorazepam (Lorazepam), 1 MG PO TID PRN for Anxiety Meclizine Hcl (Meclizine Hcl), 25 MG PO QID PRN for Dizziness or Vertigo Allergies Coded Allergies: Sulfa Antibiotics (Verified Allergy, Severe, HIVES, 06/24/17) Amoxicillin (Verified Allergy, Unknown, hives, 06/24/17) Azithromycin (Verified Allergy, Unknown, hives, 06/24/17) Clavulanic Acid (Verified Allergy, Unknown, hives, 06/24/17) Ketorolac Tromethamine (Verified Allergy, Unknown, 'increased bleeding', 06/24/17) per pt, had bleeding at epidural site and was told it was d/t toradol Meperidine (Verified Allergy, Unknown, HIVES, 06/24/17) Penicillins (Unverified Allergy, Unknown, hives, 06/24/17) Dexamethasone (Verified Adverse Reaction, Severe, Shortness of Breath, throat constriction, 06/24/17) Codeine (Unverified Adverse Reaction, Unknown, NAUSEA AND VOMITING, ) Physical Exam Vital Signs Date Time Temp Pulse Resp B/P (MAP) Pulse Ox O2 Delivery O2 Flow Rate FiO2 06/24/17 20:43 84 14 151/58 96 06/24/17 18:29 36.6 91 20 155/76 98 Room Air Physical Exam GENERAL: Patient is well appearing and in no acute distress, elderly. HEENT: No acute trauma other than left scalp bruise, normocephalic atraumatic, mucous membranes moist, no nasal congestion, no scleral icterus, pale conjunctiva. NECK: No stridor, no adenopathy, no meningismus, trachea is midline. LUNGS: No dyspnea. Clear to auscultation and equal bilaterally. No wheeze, no rhonchi. HEART: Regular rate and rhythm. No murmurs, rubs, gallops appreciated. ABDOMEN: Soft, nontender, bowel sounds positive, no masses appreciated, no peritonitis. BACK: No midline tenderness, no CVA tenderness EXTREMITIES: Normal motion all extremities, no cyanosis, no edema. NEUROLOGIC: Alert and oriented, no acute motor or sensory deficits, no focal weakness, cranial nerves grossly intact. SKIN: No rash, no jaundice, no diaphoresis, pale. RECTAL: No significant hemorrhoids, no fissures, no lacerations, no abscess, no fluctuance, bloody liquid brown stool, grossly heme positive. Medical Decision & Procedures ER Provider Diagnostic Interpretation: Radiology results and stated below per my review and radiologist interpretation: ABD/PELVIS WITHOUT FOR STONE FINDINGS: Lead Python Developer topogram: Extensive surgical clips in the right upper quadrant and thoracolumbar posterior fusion. Lung bases: Extensive subpleural reticular and groundglass opacities either atelectasis or postinfectious/postinflammatory change. Coronary artery calcification. The tip of a central venous catheter is in place at the superior cavoatrial junction. Top normal heart size. No pericardial or pleural effusion. Liver: Normal morphology. Normal density. Biliary: Mild biliary ductal prominence likely a reservoir effect in the post cholecystectomy state. Gallbladder surgically absent. Pancreas: Moderate parenchymal atrophy. Spleen: Normal noncontrast appearance. Adrenal glands: Normal noncontrast appearance. Kidneys and ureters: Normal noncontrast appearance. No nephrolithiasis. No hydronephrosis. Normal ureters. Bladder: Normal. Pelvic organs: Uterus surgically absent. Bowel: Limited diverticula in the proximal sigmoid colon evaluation for a site of gastrointestinal hemorrhage is limited without intravenous contrast. Allowing for this, no high density material within the bowel lumen to suggest acute hemorrhage. No bowel obstruction. Peritoneal cavity: No free fluid or intraperitoneal gas. Lymph nodes: No gross lymphadenopathy allowing for noncontrast technique. Vague fat infiltration noted along the left external iliac region with multiple subcentimeter asymmetrically prominent lymph nodes. Vasculature: Aorta and IVC patent and normal in caliber. Abdominal wall: Fat-containing inguinal hernias, left greater than right. Postsurgical changes of the infra abdominal midline abdomen. The right breast is not visualized, possibly outside the [id number] for postmastectomy. Musculoskeletal: Extensive postsurgical changes of the spine with thoracolumbar posterior fusion spanning T11-S1. Laminectomy defects of L3 through L5. Partial osseous fusion of the posterior elements at the surgical levels. Mild osteopenia may be present. No hardware breakage is evident. IMPRESSION: 1. Allowing for noncontrast technique, no acute intra-abdominal pathology. 2. Limited diverticula in the sigmoid colon. 3. Extensive subpleural reticular and groundglass opacities at the lung bases likely represent either atelectasis or postinfectious/postinflammatory change. Electronically signed by: Domenico Llamas M.D. 06/24/2017 7:43 PM Laboratory Results 06/24/17 19:12 Red Blood Count 3.14, Mean Corpuscular Volume 96.2, Mean Corpuscular Hemoglobin 32.8, Mean Corpuscular Hemoglobin Concent 34.1, Mean Platelet Volume 9.1, Neutrophils (%) (Auto) 47.6, Lymphocytes (%) (Auto) 23.9, Monocytes (%) (Auto) 24.1, Eosinophils (%) (Auto) 2.5, Basophils (%) (Auto) 1.7, Neutrophils # (Auto ) 2.29, Lymphocytes # (Auto) 1.15, Monocytes # (Auto) 1.16, Eosinophils # (Auto ) 0.12, Basophils # (Auto) 0.08 06/24/17 19:12 Test 06/24/17 19:12 06/24/17 20:18 White Blood Count 4.81 K/uL (4.8-10.8) Red Blood Count 3.14 M/uL (4.2-5.4) Hemoglobin 10.3 g/dL (12.0-16.0) Hematocrit 30.2 % (37-47) Mean Corpuscular Volume 96.2 fL (80-100) Mean Corpuscular Hemoglobin 32.8 pg (25-34) Mean Corpuscular Hemoglobin Concent 34.1 g/dl (32-36) Platelet Count 201 K/uL (130-400) Mean Platelet Volume 9.1 fL (7.4-10.4) Neutrophils (%) (Auto) 47.6 % Lymphocytes (%) (Auto) 23.9 % Monocytes (%) (Auto) 24.1 % Eosinophils (%) (Auto) 2.5 % Basophils (%) (Auto) 1.7 % Neutrophils # (Auto) 2.29 K/uL (1.4-6.5) Lymphocytes # (Auto) 1.15 K/uL (1.2-3.4) Monocytes # (Auto) 1.16 K/uL (0.11-0.59) Eosinophils # (Auto) 0.12 K/uL (0-0.5) Basophils # (Auto) 0.08 K/uL (0-0.2) RDW Standard Deviation 62.3 fL (36.4-46.3) RDW Coefficient of Variation 17.7 % (11.5-14.5) Immature Granulocyte % (Auto) 0.2 % Immature Granulocyte # (Auto) 0.01 K/uL (0.00-0.02) Prothrombin Time 10.9 SECONDS (9.0-12.0) Prothromb Time International Ratio 1.0 (0.9-1.1) Activated Partial Thromboplast Time 25.6 SECONDS (21.0-31.0) Partial Thromboplastin Ratio 1.0 Anion Gap 4.0 mmol/L (3-11) Est Creatinine Clear Calc Drug Dose 43.5 ml/min Estimated GFR () 50.0 Estimated GFR (Non- 43.1 BUN/Creatinine Ratio 12.8 (10-20) Calcium Level 9.3 mg/dl (8.5-10.1) Magnesium Level 1.7 mg/dl (1.8-2.4) Total Bilirubin 0.7 mg/dl (0.2-1) Direct Bilirubin 0.2 mg/dl (0-0.2) Aspartate Amino Transf (AST/SGOT) 35 U/L (15-37) Alanine Aminotransferase (ALT/SGPT) 24 U/L (12-78) Alkaline Phosphatase 101 U/L (45-117) Total Protein 6.5 gm/dl (6.4-8.2) Albumin 3.4 gm/dl (3.4-5.0) Lipase 216 U/L (73-393) Urine Color YELLOW Urine Appearance CLEAR (CLEAR) Urine pH 6.5 (4.5-7.5) Urine Specific [place] 1.017 (1.000-1.030) Urine Protein NEG (NEG) Urine Glucose (UA) NEG (NEG) Urine Ketones NEG (NEG) Urine Occult Blood NEG (NEG) Urine Nitrite NEG (NEG) Urine Bilirubin NEG (NEG) Urine Urobilinogen NEG (NEG) Urine Leukocyte Esterase LARGE (NEG) Urine WBC (Auto) >30 /hpf (0-5) Urine RBC (Auto) 0-4 /hpf (0-4) Urine Hyaline Casts (Auto) 1-5 /lpf (0-5) Urine Epithelial Cells (Auto) >30 /lpf (0-5) Urine Bacteria (Auto) NEG (NEG) Urine Renal Epithelial Cells 0-5 /lpf (0-5) Laboratory results as reviewed by me. Medications Administered Medications (Trade) Dose Ordered Sig/Matilda Route Start Time Stop Time Status Last Admin Dose Admin Magnesium Sulfate (Magnesium Sulfate) 1 gm NOW STAT IV 06/24/17 20:05 06/24/17 20:06 DC 06/24/17 20:28 1 GM Ondansetron HCl (Zofran Inj) 4 mg STK-MED ONCE .ROUTE 06/24/17 21:48 06/24/17 21:49 DC 06/24/17 21:52 4 MG ED Course 1836: The patient was evaluated in room A3. A complete history and physical exam was performed. 1938: Upon reevaluation, the patient is stable. Discussed results and treatment plan with the patient. She verbalized understanding and agreement with the treatment plan. The patient will be evaluated for further management. Discussed the patient's case with Dr. Loredo, Tash - [facility] [place]. The patient will be evaluated for further treatment and disposition. 1946: I reevaluated and updated the patient. 2005: Magnesium Sulfate 1 gm IV Medical Decision Differential: Diverticulitis, AVM, Coagulopathy, Colitis, Malignancy, Upper GI bleed, Fissure, Hemorrhoids, amongst other pathologies entertained. 76 yr old female arrives for evaluation of bloody diarrhea. On plavix for previous stroke and no other blood thinners. Did have fall for which she was seen at [facility] this am without abdominal trauma/injury. Went ahead with CT which was negative non con. Rectal exam confirms bloody diarrhea. Stool studies ordered and awaiting sample. Vitals OK. HgB just faintly down which may just be lab variation. Feeling well but with her history and on plavix I feel monitoring overnight reasonable and thus hospitalist consulted. Medication Reconcilliation Current Medication List: was personally reviewed by me Blood Pressure Screening Patient's blood pressure: Elevated blood pressure Blood pressure will be monitored by hospitalist. Consults Time Called: 1934 Consulting Physician: Dr. Loredo - RAMON Bianchi Returned Call: 1938 Discussed the patient's case with Tash Murillo. The patient will be evaluated for further treatment and disposition. Impression Primary Impression: Rectal bleeding Additional Impression: Diarrhea Scribe Attestation The scribe's documentation has been prepared under my direction and personally reviewed by me in its entirety. I confirm that the note above accurately reflects all work, treatment, procedures, and medical decision making performed by me. Departure Information Dispostion Being Evaluated By Hospitalist Li Rice M.D. (PCP) Patient Instructions My [facility] Problem Qualifiers
[2017-06-24] MEDS ORDERED: PLV75 PO (19:05)
[2017-06-24] MEDS ORDERED: DOXY100T PO (19:05)
[2017-06-24] MEDS ORDERED: CALC-20 PO (19:05)
[2017-06-24] MEDS ORDERED: LPR25 PO (19:05)
[2017-06-24] MEDS ORDERED: CINN1CAP2 PO (19:05)
[2017-06-24] MEDS ORDERED: ATV1 PO (19:05)
[2017-06-24] MEDS ORDERED: ACET-1256 PO (19:06)
[2017-06-24] MEDS ORDERED: CHOL1000 PO (19:06)
[2017-06-24 19:20] LABS: BASO % 1.7 %; BASO ABS # 0.08 K/uL (0-0.2); EOS % 2.5 %; EOS ABS # 0.12 K/uL (0-0.5); HEMATOCRIT 30.2 % (37-47); HEMOGLOBIN 10.3 g/dL (12.0-16.0); IG# 0.01 K/uL (0.00-0.02); LYMPH % 23.9 %; LYMPH ABS # 1.15 K/uL (1.2-3.4); MEAN CELL VOLUME 96.2 fL (80-100); MEAN CORPUSCULAR HEMOGLOBIN 32.8 pg (25-34); MEAN CORPUSCULAR HGB CONC 34.1 g/dl (32-36); MEAN PLATELET VOLUME 9.1 fL (7.4-10.4); MONO % 24.1 %; MONO ABS # 1.16 K/uL (0.11-0.59); NEUT % 47.6 %; NEUT ABS # 2.29 K/uL (1.4-6.5); PLATELET COUNT 201 K/uL (130-400); RED CELL DISTRIBUTION WIDTH CV 17.7 % (11.5-14.5); RED CELL DISTRIBUTION WIDTH SD 62.3 fL (36.4-46.3); WHITE BLOOD COUNT 4.81 K/uL (4.8-10.8)
[2017-06-24 19:38] LABS: ALBUMIN 3.4 gm/dl (3.4-5.0); CALCIUM 9.3 mg/dl (8.5-10.1); CREATININE 1.21 mg/dl (0.60-1.20); POTASSIUM 3.5 mmol/L (3.5-5.1)
[2017-06-24 19:40] LABS: PTT PATIENT 25.6 SECONDS (21.0-31.0)
[2017-06-24 19:41] LABS: TOTAL PROTEIN 6.5 gm/dl (6.4-8.2)
--- NOTE | 2017-06-24 19:45 | DIAGNOSTIC IMAGING REPORT ---
ABD/PELVIS WITHOUT FOR STONE CLINICAL HISTORY: 76 years-old Female presenting with bloody diarrhea. Fall this am. TECHNIQUE: Multidetector CT of the abdomen and pelvis was performed without the use of intravenous contrast. IV contrast: None. A dose lowering technique was used consistent with the principles of ALARA (as low as reasonably achievable). COMPARISON: Plain radiograph from 07/14/2015 and ultrasound of the kidneys from 2014. CT DOSE (mGy.cm): The estimated cumulative dose is 1708.96 mGy.cm. FINDINGS: Hollow Ware Maker topogram: Extensive surgical clips in the right upper quadrant and thoracolumbar posterior fusion. Lung bases: Extensive subpleural reticular and groundglass opacities either atelectasis or postinfectious/postinflammatory change. Coronary artery calcification. The tip of a central venous catheter is in place at the superior cavoatrial junction. Top normal heart size. No pericardial or pleural effusion. Liver: Normal morphology. Normal density. Biliary: Mild biliary ductal prominence likely a reservoir effect in the post cholecystectomy state. Gallbladder surgically absent. Pancreas: Moderate parenchymal atrophy. Spleen: Normal noncontrast appearance. Adrenal glands: Normal noncontrast appearance. Kidneys and ureters: Normal noncontrast appearance. No nephrolithiasis. No hydronephrosis. Normal ureters. Bladder: Normal. Pelvic organs: Uterus surgically absent. Bowel: Limited diverticula in the proximal sigmoid colon evaluation for a site of gastrointestinal hemorrhage is limited without intravenous contrast. Allowing for this, no high density material within the bowel lumen to suggest acute hemorrhage. No bowel obstruction. Peritoneal cavity: No free fluid or intraperitoneal gas. Lymph nodes: No gross lymphadenopathy allowing for noncontrast technique. Vague fat infiltration noted along the left external iliac region with multiple subcentimeter asymmetrically prominent lymph nodes. Vasculature: Aorta and IVC patent and normal in caliber. Abdominal wall: Fat-containing inguinal hernias, left greater than right. Postsurgical changes of the infra abdominal midline abdomen. The right breast is not visualized, possibly outside the [id number] for postmastectomy. Musculoskeletal: Extensive postsurgical changes of the spine with thoracolumbar posterior fusion spanning T11-S1. Laminectomy defects of L3 through L5. Partial osseous fusion of the posterior elements at the surgical levels. Mild osteopenia may be present. No hardware breakage is evident. IMPRESSION: 1. Allowing for noncontrast technique, no acute intra-abdominal pathology. 2. Limited diverticula in the sigmoid colon. 3. Extensive subpleural reticular and groundglass opacities at the lung bases likely represent either atelectasis or postinfectious/postinflammatory change. Electronically signed by: Domenico Llamas M.D. 06/24/2017 7:43 PM Dictated Date/Time: 06/24/2017 7:31 PM
[2017-06-24] MEDS ORDERED: MAGNESIUM SULFATE 1GM / D5W 1 GM BAG IV STA (20:05)
[2017-06-24] MEDS ORDERED: ALUMINUM/MAGNESIUM/SIMETH (MAALOX MAX) 30 ML UDC PO PRN (21:00)
[2017-06-24] MEDS ORDERED: NITROGLYCERIN 0.4 MG SL PER TAB CHARGE SL PRN (21:00)
[2017-06-24] MEDS ORDERED: MAGNESIUM HYDROXIDE SUSP 30 ML UDC PO PRN (21:00)
[2017-06-24] MEDS ORDERED: ACETAMINOPHEN 325 MG TAB PO PRN (21:00)
[2017-06-24] MEDS ORDERED: ONDANSETRON INJ 2 MG/ML 2 ML VIAL IV PRN (21:00)
--- NOTE | 2017-06-24 21:44 | History and Physical ---
History & Physical Date & Time of Service: Jun 24, 2017 at 21:29 Chief Complaint: Rectal Bleeding, Fall, Knot Of Back Of Head,Dizzy Primary Care Physician: iL Miner M.D. History of Present Illness Source: patient, family This is a 76 y/o F who presents with bright red rectal bleeding x few hours. She reports having had a fall 2/2 weakness earlier in the day today. She went to [facility] where she had a head ct that was reportedly negative for any bleeds. She was aware of the fall, did not lose consciousness. She has non hodgkin's lymphoma and recently completed chemo. She will be starting radiation therapy soon. Her son reports that she was in the bathroom this evening at her grand daughter's place and noticed blood on the tissue and in the bowl. She has had chronic diarrhea for which she uses Imodium. She denies any abdominal pain, nausea, vomiting. She is currently on Plavix for a previous stroke. She also denies any hemorrhoids or fissures. She currently denies shortness of breath, chest pain. Family History Noncontributory Social History Smoking Status: Never Smoker Alcohol Use: none Drug Use: none Marital Status: Housing status: lives with family Occupational Status: retired Immunizations History of Influenza Vaccine: Unknown History of Tetanus Vaccine?: Unknown History of Pneumococcal: Unknown History of Hepatitis B Vaccine: Unknown Multi-Drug Resistant Organisms History of MDRO: No Allergies Coded Allergies: Sulfa Antibiotics (Verified Allergy, Severe, HIVES, 06/24/17) Amoxicillin (Verified Allergy, Unknown, hives, 06/24/17) Azithromycin (Verified Allergy, Unknown, hives, 06/24/17) Clavulanic Acid (Verified Allergy, Unknown, hives, 06/24/17) Ketorolac Tromethamine (Verified Allergy, Unknown, 'increased bleeding', 06/24/17) per pt, had bleeding at epidural site and was told it was d/t toradol Meperidine (Verified Allergy, Unknown, HIVES, 06/24/17) Penicillins (Unverified Allergy, Unknown, hives, 06/24/17) Dexamethasone (Verified Adverse Reaction, Severe, Shortness of Breath, throat constriction, 06/24/17) Codeine (Unverified Adverse Reaction, Unknown, NAUSEA AND VOMITING, ) Home Medications Scheduled Acetaminophen (Tylenol), 1,000 MG PO BID Calcium Carbonate-Vitamin D (Calcium 600 + D), 1 TAB PO DAILY Cholecalciferol (Vitamin D3), 1,000 INTER.UNIT PO DAILY Cinnamon (Cinnamon), 1,000 MG PO DAILY Clopidogrel Bisulfate (Clopidogrel), 75 MG PO DAILY Colestipol Hcl (Colestid), 2 GM PO QAM Cyclobenzaprine Hcl (Flexeril), 10 MG PO HS Doxycycline Hyclate (Doxycycline Hyclate), 100 MG PO BID Fish Oil ([place]-3), 1 CAP PO QAM Furosemide (Lasix), 40 MG PO QAM Furosemide (Lasix), 20 MG PO QPM Metoprolol Tartrate (Lopressor), 25 MG PO BID Ranitidine (Zantac), 300 MG PO BID Scheduled PRN Loperamide Hcl (Imodium), 2 MG PO TID PRN for Diarrhea Lorazepam (Lorazepam), 1 MG PO TID PRN for Anxiety Meclizine Hcl (Meclizine Hcl), 25 MG PO QID PRN for Dizziness or Vertigo Review of Systems Constitutional: + weakness, + fatigue, No fever, No chills ENT: No hearing loss Respiratory: No cough, No sputum, No wheezing, No shortness of breath, No dyspnea on exertion, No dyspnea at rest Cardiovascular: No chest pain Abdomen: + diarrhea, + GI bleeding, No pain, No nausea, No vomiting Musculoskeletal: No joint pain, No muscle pain Genitourinary - Female: No dysuria, No urinary frequency, No urinary urgency Physical Exam Vital Signs Date Time Temp Pulse Resp B/P (MAP) Pulse Ox O2 Delivery O2 Flow Rate FiO2 06/24/17 20:43 84 14 151/58 96 06/24/17 18:29 36.6 91 20 155/76 98 Room Air General Appearance: no apparent distress Eyes: PERRL, EOMI ENT: hearing grossly normal Respiratory/Chest: no respiratory distress, no accessory muscle use, + decreased breath sounds (at the bases) Cardiovascular: regular rate, rhythm, no edema Abdomen/GI: normal bowel sounds, non tender, soft Extremities/Musculoskelatal: no calf tenderness Diagnostics Laboratory Results Results Past 24 Hours Test 06/24/17 19:12 06/24/17 20:18 Range/Units White Blood Count 4.81 4.8-10.8 K/uL Red Blood Count 3.14 4.2-5.4 M/uL Hemoglobin 10.3 12.0-16.0 g/dL Hematocrit 30.2 37-47 % Mean Corpuscular Volume 96.2 80-100 fL Mean Corpuscular Hemoglobin 32.8 25-34 pg Mean Corpuscular Hemoglobin Concent 34.1 32-36 g/dl Platelet Count 201 130-400 K/uL Mean Platelet Volume 9.1 7.4-10.4 fL Neutrophils (%) (Auto) 47.6 % Lymphocytes (%) (Auto) 23.9 % Monocytes (%) (Auto) 24.1 % Eosinophils (%) (Auto) 2.5 % Basophils (%) (Auto) 1.7 % Neutrophils # (Auto) 2.29 1.4-6.5 K/uL Lymphocytes # (Auto) 1.15 1.2-3.4 K/uL Monocytes # (Auto) 1.16 0.11-0.59 K/uL Eosinophils # (Auto) 0.12 0-0.5 K/uL Basophils # (Auto) 0.08 0-0.2 K/uL RDW Standard Deviation 62.3 36.4-46.3 fL RDW Coefficient of Variation 17.7 11.5-14.5 % Immature Granulocyte % (Auto) 0.2 % Immature Granulocyte # (Auto) 0.01 0.00-0.02 K/uL Prothrombin Time 10.9 9.0-12.0 SECONDS Prothromb Time International Ratio 1.0 0.9-1.1 Activated Partial Thromboplast Time 25.6 21.0-31.0 SECONDS Partial Thromboplastin Ratio 1.0 Sodium Level 136 136-145 mmol/L Potassium Level 3.5 3.5-5.1 mmol/L Chloride Level 102 98-107 mmol/L Carbon Dioxide Level 30 21-32 mmol/L Anion Gap 4.0 3-11 mmol/L Blood Urea Nitrogen 16 7-18 mg/dl Creatinine 1.21 0.60-1.20 mg/dl Est Creatinine Clear Calc Drug Dose 43.5 ml/min Estimated GFR () 50.0 Estimated GFR (Non- 43.1 BUN/Creatinine Ratio 12.8 10-20 Random Glucose 97 70-99 mg/dl Calcium Level 9.3 8.5-10.1 mg/dl Magnesium Level 1.7 1.8-2.4 mg/dl Total Bilirubin 0.7 0.2-1 mg/dl Direct Bilirubin 0.2 0-0.2 mg/dl Aspartate Amino Transf (AST/SGOT) 35 15-37 U/L Alanine Aminotransferase (ALT/SGPT) 24 12-78 U/L Alkaline Phosphatase 101 45-117 U/L Total Protein 6.5 6.4-8.2 gm/dl Albumin 3.4 3.4-5.0 gm/dl Lipase 216 73-393 U/L Urine Color YELLOW Urine Appearance CLEAR CLEAR Urine pH 6.5 4.5-7.5 Urine Specific [place] 1.017 1.000-1.030 Urine Protein NEG NEG Urine Glucose (UA) NEG NEG Urine Ketones NEG NEG Urine Occult Blood NEG NEG Urine Nitrite NEG NEG Urine Bilirubin NEG NEG Urine Urobilinogen NEG NEG Urine Leukocyte Esterase LARGE NEG Urine WBC (Auto) >30 0-5 /hpf Urine RBC (Auto) 0-4 0-4 /hpf Urine Hyaline Casts (Auto) 1-5 0-5 /lpf Urine Epithelial Cells (Auto) >30 0-5 /lpf Urine Bacteria (Auto) NEG NEG Urine Renal Epithelial Cells 0-5 0-5 /lpf Microbiology Results 06/24/17 Urine Culture, Received Pending Impression Assessment and Plan This is a 76 y/o F who presents with rectal bleeding. GI Bleed H/H acceptable - serial H/H NPO Protonix BID GI consult Hemoccult IVF Abdominal CT unremarkable except for lung findings of Extensive subpleural reticular and groundglass opacities at the lung bases likely represent either atelectasis or postinfectious/postinflammatory change.- chest Xray Non Hodgkin's Lymphoma- noted CKD stage 3- stable h/o of CVA - hold plavix - hold fish oil hypomagnesemia - 1 gm Mag given DVT Proph Contraindicated Code: DNR Attending addendum: I have physically seen this patient, have supervised the medical residents activities, and agree with the H&P unless as otherwise noted. Assessment and Plan: Rectal bleeding/anemia-- Nothing by mouth status H&H every 6 hours Hold Plavix, colestipol, furosemide and fish oil Protonix 40 mg IV twice a day IV fluids Consult gastroenterology Chronic kidney disease/hypertension-- hold furosemide Continue metoprolol tartrate 25 mg by mouth twice a day with hold parameters Non-Hodgkin's lymphoma-- On Chemotherapy Pulmonary-- CT of abdomen and pelvis suggests lower lobe involvement subpleural reticular and groundglass opacities at the bases. Patient has no symptoms If develops symptoms, order CT of chest for further assessment. Have duonebs available to use every 4 hours when necessary Level of Care Telemetry Advanced Directives Existing Advance Directive: Yes Existing Living Will: Yes Existing Power of Hull Sorter: Yes Resuscitation Status DO NOT RESUSCITATE VTE Prophylaxis VTE Risk Assessment Done? Y/N: Yes Risk Level: Moderate Given or contraindicated: SCD's, Contraindicated
[2017-06-24] MEDS ORDERED: ONDANSETRON INJ 2 MG/ML 2 ML VIAL ONE (21:48)
--- NOTE | 2017-06-24 22:30 | NUR ---
A: Patient arrived to room 212 via litter from ED. VSS. Alert and oriented x4. Son at bedside. Oriented to hospital environment. Fall risk explained to patient. Code word identified. Call cervantes within reach and instructed on use, expressed understanding. Will continue to monitor.
[2017-06-24 22:59] LABS: HEMATOCRIT 29.3 % (37-47)
[2017-06-24 23:02] VITALS: BP 144/72; PULSE 94; TEMP 36.8; O2SAT 97; Ht 167.6 cm; Wt 88.2 kg
[2017-06-24] MEDS: PANTOprazole INJ 40 MG in SYRINGE 0 ML IV SCH (23:52)
[2017-06-24] MEDS: SODIUM CHLORIDE 0.9% 1000ML 1,000 ML IV SCH (23:53)
--- NOTE | 2017-06-25 00:01 | NUR ---
Pt in bed, alert and oriented. No complaints at this time. 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 Call cervantes within reach, encouraged to ring for assistance. Will continue to monitor.
[2017-06-25] MEDS ORDERED: LORAZEPAM 1 MG TAB PO PRN (02:45)
[2017-06-25] MEDS ORDERED: LOPERAMIDE HCL 2 MG CAP PO PRN (02:45)
[2017-06-25] MEDS ORDERED: MECLIZINE HCL 12.5 MG TAB PO PRN (02:45)
--- NOTE | 2017-06-25 04:00 | NUR ---
Pt in bed, resting with eyes closed. Assessment complete, for details see EMR. Aflutter on bus driver/monitor. Call cervantes within reach, will continue to monitor.
[2017-06-25 04:51] VITALS: BP 132/54; PULSE 84; TEMP 36.7; O2SAT 92
[2017-06-25 05:13] LABS: HEMATOCRIT 27.1 % (37-47); HEMOGLOBIN 9.2 g/dL (12.0-16.0)
[2017-06-25 05:31] LABS: CALCIUM 8.4 mg/dl (8.5-10.1); CREATININE 1.05 mg/dl (0.60-1.20); POTASSIUM 3.8 mmol/L (3.5-5.1)
[2017-06-25] MEDS ORDERED: ALBUT/IPRATROP 3MG/0.5MG NEB 3 ML VIAL INH PRN (06:00)
--- NOTE | 2017-06-25 07:20 | DIAGNOSTIC IMAGING REPORT ---
SINGLE VIEW CHEST CLINICAL HISTORY: Basilar rhonchi. FINDINGS: An AP, portable, upright chest radiograph is compared to study dated 04/08/2017 and correlated with PET/CT dated 06/12/2017 The examination is degraded by portable technique and patient rotation. A left subclavian central venous infusion port is unchanged in position.. The cardiomediastinal silhouette is unremarkable. There is atherosclerotic calcification of the thoracic aorta. Postoperative change and volume loss is identified in the left lung. Cortical scarring is seen in the left midlung. Chronic interstitial thickening is unchanged in previous. No airspace consolidation or large pleural effusion is identified. No pneumothorax is seen. The skeletal structures are osteopenic. The bony thorax is grossly intact. Degenerative change is noted throughout the imaged spine. Fusion hardware is present in the upper lumbar region. Surgical clips are noted in the right axilla. IMPRESSION: 1. No acute cardiopulmonary abnormality. 2. Postoperative change is again seen in the left lung. Electronically signed by: Gallito Escalera M.D. 06/25/2017 7:19 AM Dictated Date/Time: 06/25/2017 7:17 AM
--- NOTE | 2017-06-25 08:00 | NUR ---
Patient A+Ox4, in NAD. Denies pain. VSS. NSR on monitor. Denies any CP/pressure/palpitations. Pulses palpable; no edema to B/LLE. Lung sounds clear; sats WNL on RA. Denies any SOB. Denies nausea/vomiting. Currently NPO except meds. 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 Voiding CYU in restroom. A-port to left chest intact; NS infusing at 80 ml/hr. Hematoma and swelling noted to back of skull on left; no open areas. Left elbow has a large hematoma and scab from a fall yesterday. 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 She has a darkened toenail to the 3rd toenails bilaterally and the right 1st toe. She reports they have been like this for "a few weeks"; she denies stubbing her toe. Neurovascular status to B/L feet WNL. Explained plan for day, which will include GI consult. Will inform primary team about patient's toes. Call cervantes within reach. Will continue to monitor.
[2017-06-25 08:48] VITALS: BP 121/64; PULSE 90; TEMP 36.8; O2SAT 97
[2017-06-25] MEDS: PANTOprazole INJ 40 MG in SYRINGE 0 ML IV SCH ×2 (08:59→21:27)
[2017-06-25] MEDS: METOPROLOL TARTRATE 25 MG TAB PO SCH ×2 (08:59→21:27)
[2017-06-25] MEDS: ACETAMINOPHEN 500 MG TAB PO SCH ×2 (09:00→21:27)
[2017-06-25] MEDS ORDERED: CHOLECALCIFEROL 1000 INTER.UNIT TAB PO SCH (09:00)
[2017-06-25] MEDS ORDERED: FUROSEMIDE 40 MG TAB PO SCH (09:00)
[2017-06-25] MEDS ORDERED: COLESTIPOL HCL 1 GM TAB PO SCH (10:00)
[2017-06-25] MEDS: SODIUM CHLORIDE 0.9% 1000ML 1,000 ML IV SCH (11:20)
--- NOTE | 2017-06-25 12:00 | NUR ---
Patient in NAD. VSS. NSR on monitor. Denies any CP or SOB. Denies any bowel movements. Continues to be NPO- awaiting GI consult. Washed up in restroom. Denies needs at this time. Will continue to monitor.
--- NOTE | 2017-06-25 12:01 | NUR ---
Case Management Note- Received consult for discharge planning. Met with patient at bedside. Patient alert & oriented. She states that she lives alone in a 1 story trailer with [address]. The steps have railings and the patient reports that a family member is always there to assist her up them. Patient uses a walker to ambulate and has a shower chair. Patient reports being independent at baseline, but has had increased weakness due to chemotherapy. Patient is done with chemo, but needs to start 18 days of radiation treatment in [facility]. Patient does not drive. Her granddaughter and son provide transportation and are very supportive. Role of [employer] Support Planner explained. Patient verbalizes some concern about returning home due to weakness and recent fall. Discussed home health and patient thinks it would be beneficial. List of agencies provided and she chose [facility]. Referral made. Asked MD for PT/OT dee for further recommendations. Will continue to follow.
[2017-06-25 12:08] LABS: HEMATOCRIT 27.4 % (37-47); HEMOGLOBIN 9.2 g/dL (12.0-16.0)
[2017-06-25 12:22] VITALS: BP 127/50; PULSE 74; TEMP 36.7; O2SAT 96
--- NOTE | 2017-06-25 13:03 | DIAGNOSTIC IMAGING REPORT ---
ELBOW MIN 3 VIEWS ROUTINE CLINICAL HISTORY: 76 years-old Female presenting with fall with subsequent edema. TECHNIQUE: Frontal, oblique, and lateral views of the left elbow were obtained. COMPARISON: None. FINDINGS: No acute fracture or malalignment. No advanced degenerative change. Skin thickening noted over the olecranon. No subcutaneous emphysema. No gross evidence of an elbow joint effusion. IMPRESSION: 1. No acute osseous injury of the left elbow. 2. Soft tissue contusion of the subcutaneous tissues overlying the olecranon. Electronically signed by: Domenico Llamas M.D. 06/25/2017 1:02 PM Dictated Date/Time: 06/25/2017 1:01 PM
--- NOTE | 2017-06-25 15:12 | NUR ---
Pt screened for Oncology hx. Please refer to linked assessment Addendum: 06/25/17 at [address] Amended: Links added.
--- NOTE | 2017-06-25 16:00 | NUR ---
Pt A&O. Denies pain. VSS. Monitor showing NSR. On room air, lungs clear. See EMR for full assessment.
--- NOTE | 2017-06-25 16:26 | Hospitalist Progress Note ---
Hospitalist Progress Note Date of Service Jun 25, 2017. (Keiry Garcia CRNP) Subjective Pt evaluation today including: conversation w/ patient, physical exam, chart review, lab review, review of inpatient medication list Voiding: no voiding problems Ms. Thao is feeling better today. She has a bruise on her left head and on her left elbow. Nursing also reports bruised toes. She has not experienced any further bleeding today. Some concern on telemetry for A.flutter, EKG nsr Constitutional: no chills, aches, sweats or fever Respiratory: no sob,cough, sputum, or wheezing Cardiac: no chest pain, palpitations, edema, orthopnea or lightheadedness GI: no abdominal pain, nausea, vomiting, diarrhea or constipation : no dysuria or hesitancy Extremities: see HPI Skin: no rash Other systems reviewed and negative. (Keiry Garcia CRNP) Medications Medications (Trade) Dose Ordered Sig/Matilda Route Start Time Stop Time Status Last Admin Dose Admin Magnesium Sulfate (Magnesium Sulfate) 1 gm NOW STAT IV 06/24/17 20:05 06/24/17 20:06 DC 06/24/17 20:28 1 GM Sodium Chloride 1,000 ml @ 80 mls/hr [id number] IV 06/24/17 23:00 07/24/17 22:59 06/25/17 11:20 80 MLS/HR Pantoprazole Sodium 40 mg/ Syringe 10 ml @ 5 mls/min DAILY@09,21 IV 06/24/17 21:00 07/24/17 20:59 06/25/17 08:59 5 MLS/MIN Ondansetron HCl (Zofran Inj) 4 mg STK-MED ONCE .ROUTE 06/24/17 21:48 06/24/17 21:49 DC 06/24/17 21:52 4 MG Metoprolol Tartrate (Lopressor Tab) 25 mg BID PO 06/25/17 09:00 07/25/17 08:59 06/25/17 08:59 25 MG (Keiry Garcia CRNP) Objective Vital Signs Date Time Temp Pulse Resp B/P (MAP) Pulse Ox O2 Delivery O2 Flow Rate FiO2 06/25/17 12:22 36.7 74 18 127/50 (75) 96 Room Air 06/25/17 12:00 Room Air 06/25/17 08:48 36.8 90 18 121/64 (83) 97 Room Air 06/25/17 08:00 Room Air 06/25/17 04:51 36.7 84 20 132/54 (80) 92 Room Air 06/25/17 04:00 Room Air 06/24/17 23:02 36.8 94 18 144/72 97 Room Air 06/24/17 22:10 97 18 145/62 96 Room Air 06/24/17 20:43 84 14 151/58 96 06/24/17 18:29 36.6 91 20 155/76 98 Room Air (Keiry Garcia CRNP) Physical Exam Notes: General: no distress Eyes: normal inspection, PERLL Respiratory: chest non tender, clear to auscultation, normal breath sounds, no respiratory distress, no accessory muscle use Cardiac: regular rate and rhythm, no rub or gallop, no murmur, no edema, no jvd GI/: active bowel sounds, no abd pain or tenderness, soft, non distended Extremities: normal range of motion, normal strength, left elbow edematous and ecchymotic, hematoma left skull Neuro/Psych: alert and oriented x 3, normal mood and affect Skin: normal color, dry (Keiry Garcia CRNP) Laboratory Results Last 24 Hours Test 06/24/17 19:12 06/24/17 20:18 06/24/17 22:50 06/25/17 05:00 White Blood Count 4.81 K/uL Red Blood Count 3.14 M/uL Hemoglobin 10.3 g/dL 10.0 g/dL 9.2 g/dL Hematocrit 30.2 % 29.3 % 27.1 % Mean Corpuscular Volume 96.2 fL Mean Corpuscular Hemoglobin 32.8 pg Mean Corpuscular Hemoglobin Concent 34.1 g/dl Platelet Count 201 K/uL Mean Platelet Volume 9.1 fL Neutrophils (%) (Auto) 47.6 % Lymphocytes (%) (Auto) 23.9 % Monocytes (%) (Auto) 24.1 % Eosinophils (%) (Auto) 2.5 % Basophils (%) (Auto) 1.7 % Neutrophils # (Auto) 2.29 K/uL Lymphocytes # (Auto) 1.15 K/uL Monocytes # (Auto) 1.16 K/uL Eosinophils # (Auto) 0.12 K/uL Basophils # (Auto) 0.08 K/uL RDW Standard Deviation 62.3 fL RDW Coefficient of Variation 17.7 % Immature Granulocyte % (Auto) 0.2 % Immature Granulocyte # (Auto) 0.01 K/uL Prothrombin Time 10.9 SECONDS Prothromb Time International Ratio 1.0 Activated Partial Thromboplast Time 25.6 SECONDS Partial Thromboplastin Ratio 1.0 Sodium Level 136 mmol/L 137 mmol/L Potassium Level 3.5 mmol/L 3.8 mmol/L Chloride Level 102 mmol/L 106 mmol/L Carbon Dioxide Level 30 mmol/L 26 mmol/L Anion Gap 4.0 mmol/L 5.0 mmol/L Blood Urea Nitrogen 16 mg/dl 14 mg/dl Creatinine 1.21 mg/dl 1.05 mg/dl Est Creatinine Clear Calc Drug Dose 43.5 ml/min 50.1 ml/min Estimated GFR () 50.0 59.3 Estimated GFR (Non- 43.1 51.2 BUN/Creatinine Ratio 12.8 13.1 Random Glucose 97 mg/dl 99 mg/dl Calcium Level 9.3 mg/dl 8.4 mg/dl Magnesium Level 1.7 mg/dl 2.0 mg/dl Total Bilirubin 0.7 mg/dl Direct Bilirubin 0.2 mg/dl Aspartate Amino Transf (AST/SGOT) 35 U/L Alanine Aminotransferase (ALT/SGPT) 24 U/L Alkaline Phosphatase 101 U/L Total Protein 6.5 gm/dl Albumin 3.4 gm/dl Lipase 216 U/L Urine Color YELLOW Urine Appearance CLEAR Urine pH 6.5 Urine Specific [place] 1.017 Urine Protein NEG Urine Glucose (UA) NEG Urine Ketones NEG Urine Occult Blood NEG Urine Nitrite NEG Urine Bilirubin NEG Urine Urobilinogen NEG Urine Leukocyte Esterase LARGE Urine WBC (Auto) >30 /hpf Urine RBC (Auto) 0-4 /hpf Urine Hyaline Casts (Auto) 1-5 /lpf Urine Epithelial Cells (Auto) >30 /lpf Urine Bacteria (Auto) NEG Urine Renal Epithelial Cells 0-5 /lpf Test 06/25/17 11:18 Hemoglobin 9.2 g/dL Hematocrit 27.4 % (Keiry Garcia, KARIME) Assessment and Plan Ms. Thao is a 76 year old woman here for mechanical fall with subsequent rectal bleeding. GI Bleed, anemia -Advance diet for this evening -Consult GI -Hgb stable. -Abdominal CT unremarkable except for lung findings of Extensive subpleural reticular and groundglass opacities at the lung bases likely represent either atelectasis or postinfectious/postinflammatory change.- chest Xray - B12 and folate level in am S/P Mechanical Fall - ice to elbow Non Hodgkins lymphoma - chemo completed, has not started radiation CKD stage 3 - stable - avoid nephrotoxins where possible h/o of CVA - hold plavix and fish oil hypomagnesemia - repleated DVT Proph Contraindicated due to GI bleed Code: DNR Attending addendum: (Keiry Garcia ., KARIME) Reviewed: Pt Seen/Exam by Me (Deisy Davalos MD) History ASSISTANT ADMINISTRATOR Supervision Note: I interviewed and examined the patient. Discussed with KARIME Garcia and agree with findings and plan as documented in the note. Any exceptions or clarifications are listed here: Patient reports no further bleeding today. She had 2 episodes of bright red blood per rectum on the day of admission. Her hemoglobin really has only dropped about 1-2 g in the last month. She had a colonoscopy about 4 years ago that she was told was normal. She also reports some abdominal pain and diarrhea prior to the bleeding starting. She currently has had no diarrhea and no abdominal pain. Vitals reviewed, telemetry reported as intermittent atrial flutter, but upon review seems to be interference and is the same rate as mentioned is in a sinus rhythm NAD, obese RRR no MGR Lungs clear to auscultation bilaterally Abdomen positive bowel sounds soft nontender nondistended Extremities no edema Patient is a 76-year-old female with a history of non-Hodgkin's lymphoma the left axilla who recently finished chemotherapy several weeks ago, history of breast cancer, history of CVA on Plavix, here with bright red blood per rectum and a mild hemoglobin drop from 11-9. -Discussed case with GI, will most likely make sure that she does not have C. difficile, then perform colonoscopy on . -Follow CBC Documented By: Deisy Davalos (Deisy Davalos MD)
[2017-06-25 16:39] VITALS: BP 143/53; PULSE 83; TEMP 37; O2SAT 94
--- NOTE | 2017-06-25 18:52 | GASTROINTESTINAL CONSULTATION ---
DATE OF CONSULTATION: 06/25/2017 GASTROENTEROLOGY INPATIENT CONSULTATION CHIEF COMPLAINT: Rectal bleeding. HISTORY OF PRESENT ILLNESS: Mrs. Thao is a 76-year-old white female with history of non-Hodgkin lymphoma who in early May received her third course of chemotherapy for this. She was at her son's home yesterday and had a couple episodes of bright red blood per rectum. There was also a vague abdominal discomfort but over apparent pain was not experienced by the patient. She also had a pattern of diarrhea over the last 24 hours as well. The patient had fallen, although did not lose consciousness and was evaluated at [facility] for which a CT scan of the head reportedly revealed no abnormalities. She also hit her left arm. The patient's last colonoscopy was by Dr. Prasad in [place] approximately 5 years ago or so for which diverticular disease was noted, but no reports of polyps or masses. This is according to the patient. The patient does report a history of chronic diarrhea for which she uses Imodium. She is also on Plavix for a prior stroke. FAMILY HISTORY: Noncontributory. SOCIAL HISTORY: The patient denies tobacco or alcohol use. She is and lives with her family. ALLERGIES: INCLUDE SULFA, AMOXICILLIN, AZITHROMYCIN, CLAVULANIC ACID, KETOROLAC, MEPERIDINE, PENICILLIN, DEXAMETHASONE, AND CODEINE. She avoids the use of NSAIDs, although does use Tylenol at times. HOME MEDICATIONS: Include Tylenol, calcium carbonate, vitamin D, vitamin D3, cinnamon, Plavix, Colestid, cyclobenzaprine, doxycycline, fish oil, Lasix, metoprolol, and ranitidine. PAST SURGICAL HISTORY: She denies any prior surgery. REVIEW OF SYSTEMS: Otherwise noncontributory based on 13-point exam except for mentioned above. She denies the use of any recent antibiotics. On further discussion, there is a sense of a more diffuse discomfort, although she again does not report it as pain. This seemed to occur around the time that her diarrhea began. PHYSICAL EXAMINATION: VITAL SIGNS: On admission, she was afebrile and vital signs were stable with a pulse ox of 98% on room air. At the present time, the patient's vital signs are afebrile at 37.0, heart rate 83, respirations 18, blood pressure 143/53, 94% on room air. GENERAL: The patient is awake, alert and oriented x3. HEENT: Sclerae are anicteric, conjunctiva moist. Oral mucosa moist. NECK: There is no cervical or supraclavicular adenopathy. I do not appreciate thyromegaly. SKIN: Intact. HEAD: Normocephalic. NECK: Normal range of motion. HEART: Normal S1, S2. LUNGS: Clear to auscultation without rales, rhonchi or wheezes. ABDOMEN: Soft, minimally tender in the left side of the abdomen without rebound or guarding. I do not appreciate ascites or shifting dullness. There are no abdominal bruits or masses. There are no ventral wall hernias. EXTREMITIES: Normal range of motion. Without clubbing, cyanosis or edema. RECTAL: Deferred at that time. The patient just recently had a bowel movement which is somewhat malodorous, but inspection does not show any overt rhianna hematochezia and it also hold its shape at the present time. A C. diff will be sent on this specimen. LABORATORY STUDIES: On admission, white count 4.8, hemoglobin began at 10.3 and has slowly drifted down to 9.2 for measurements over the last 20 hours. Platelet count 201. Serum chemistry - BUN and creatinine are 16 and 1.2 on admission and 14 and 1.05 earlier this morning; her potassium is 3.5, up to 3.8 today; magnesium was low at 1.7, but currently is 2.0. LFTs are completely normal, total bilirubin 0.7, direct 0.2, AST 35, ALT 24, alkaline phosphatase 101, total protein 6.5, and lipase 216. Urinalysis showed large leukocyte esterase with greater than 30 white blood cells, although there are many epithelial cells. There is no blood detected, nitrites are negative. MEDICATIONS: Her medications in the hospital include Flexeril, acetaminophen, Lopressor, DuoNeb, loperamide, lorazepam, Antivert, subQ heparin, and Zofran along with pantoprazole 40 mg IV twice daily. IMAGING STUDIES: Suggested a CT scan that revealed in a noncontrast study - limited diverticula in the proximal sigmoid colon, there are no gross lymph nodes identified, there is no evidence for an aneurysmal dilation, and there are fat-containing inguinal hernias, left greater than right. There are also ground-glass opacities at the lung bases which may be atelectasis and post-infectious. RECOMMENDATIONS: I made the following recommendations: Will await the results of the patient's stool for C. diff this evening. The stools currently are pasty to formed. The hemoglobin, although low on admission, has not drifted down significantly and there is no overt GI bleeding recognized on the last bowel movement. The differential for this includes diverticular bleeding, possibly ischemic colitis. The patient, although recently receiving chemotherapy has a white count of 4.8 with approximately 47% neutrophils. Would follow hemoglobin serially daily and if the bleeding returns, then a more urgent colonoscopy may be worthwhile. Otherwise, will therefore await the results of the C. diff for stool and if positive, will need treatment and if negative and patient feeling well, will plan for a colonoscopy with bowel prep Saturday for a procedure. All questions answered. We will follow along with you. Thank for allowing me to participate in this patient's care.
[2017-06-25 20:45] VITALS: BP 135/73; PULSE 88; TEMP 37.2; O2SAT 94
[2017-06-25] MEDS ORDERED: FUROSEMIDE 20 MG TAB PO SCH (21:00)
[2017-06-25] MEDS: CYCLOBENZAPRINE HCL 10 MG TAB PO SCH (21:27)
[2017-06-26] VITALS: BP 125/52; PULSE 72; TEMP 36.3; O2SAT 95
--- NOTE | 2017-06-26 | NUR ---
A: Pt found to be A&Ox4 and very pleasant. She has no c/o chest pain but does c/o some mild pain to her left elbow from when she fell at home. Pt does not wish to have pain medication. VS were found to be WNL. See EMR for further documentation. Pt will continue to be monitored.
[2017-06-26] MEDS: SODIUM CHLORIDE 0.9% 1000ML 1,000 ML IV SCH ×2 (00:40→13:36)
[2017-06-26 04:00] VITALS: BP 133/66; PULSE 74; TEMP 36.6; O2SAT 97
--- NOTE | 2017-06-26 04:00 | NUR ---
A: No change in assessment VS remain WNL and Pt has no c/o pain. See EMR for further documentation. Pt will continue to be monitored.
[2017-06-26 05:26] LABS: BASO % 2.3 %; BASO ABS # 0.07 K/uL (0-0.2); EOS ABS # 0.18 K/uL (0-0.5); HEMATOCRIT 27.3 % (37-47); HEMOGLOBIN 9.2 g/dL (12.0-16.0); IG# 0.01 K/uL (0.00-0.02); LYMPH % 19.9 %; MEAN CELL VOLUME 97.5 fL (80-100); MEAN CORPUSCULAR HEMOGLOBIN 32.9 pg (25-34); MEAN CORPUSCULAR HGB CONC 33.7 g/dl (32-36); MEAN PLATELET VOLUME 8.9 fL (7.4-10.4); MONO % 23.2 %; NEUT % 48.3 %; NEUT ABS # 1.46 K/uL (1.4-6.5); PLATELET COUNT 161 K/uL (130-400); RED CELL DISTRIBUTION WIDTH CV 17.7 % (11.5-14.5); RED CELL DISTRIBUTION WIDTH SD 63.7 fL (36.4-46.3); WHITE BLOOD COUNT 3.02 K/uL (4.8-10.8)
[2017-06-26 05:43] LABS: CALCIUM 8.2 mg/dl (8.5-10.1); CREATININE 1.02 mg/dl (0.60-1.20); POTASSIUM 3.7 mmol/L (3.5-5.1)
--- NOTE | 2017-06-26 08:00 | NUR ---
Patient A+Ox4, in NAD. VSS. NSR on monitor. Denies any CP/pressure. Denies SOB. Sats WNL on RA. Lung sounds clear. Denies nausea/vomiting, but doesn't have much of an appetite. Last BM was last evening- negative for C-diff and negative for blood per patient. Voiding CYU in restroom. Swelling to back of head and left elbow markedly improved. Scab to left elbow intact. Discoloration to right 1st and 3rd toes and left 3rd toe unchanged. Implanted port to left chest WNL. Explained plan for day. Patient understands that she will be prepping for colonoscopy later this evening. Could likely move to medical floor. Call cervantes within reach. Will continue to monitor.
[2017-06-26 08:37] VITALS: BP 123/64; PULSE 93; TEMP 36.8; O2SAT 97
[2017-06-26] MEDS: ACETAMINOPHEN 500 MG TAB PO SCH ×2 (09:00→20:52)
[2017-06-26] MEDS: PANTOprazole INJ 40 MG in SYRINGE 0 ML IV SCH ×2 (09:08→20:52)
[2017-06-26] MEDS: METOPROLOL TARTRATE 25 MG TAB PO SCH ×2 (09:08→20:50)
--- NOTE | 2017-06-26 09:25 | NUR ---
Case Management Note- Spoke with Josefina at [facility]. They are able to accept patient for services. Informed Josefina that plan is for patient to have a colonoscopy. Physical Therapy eval support plan for home with [facility]. at discharge. Will continue to follow.
[2017-06-26 12:15] VITALS: BP 123/64; PULSE 93; TEMP 36.8; O2SAT 97
--- NOTE | 2017-06-26 12:18 | NUR ---
Patient transferred to Room 260-1 via wheelchair with flogonzález RN. hospital monitor removed. Report called to PHI Navarro. Called patient's son, Shan, and informed him about the transfer.
--- NOTE | 2017-06-26 13:34 | Hospitalist Progress Note ---
Hospitalist Progress Note Date of Service Jun 26, 2017. (Keiry Garcia .KARIME) Subjective Pt evaluation today including: conversation w/ patient, physical exam, chart review, lab review, review of inpatient medication list Voiding: no voiding problems Ms. Thao has not had anymore bleeding since arriving to the hospital. She does not have much appetite and hasn't since finishing chemo, no nausea or vomiting or abd pain. She has delgadillo when walking in the halls but states that this is baseline for her. ROS Constitutional: no chills, aches, sweats or fever Respiratory: no sob,cough, sputum, or wheezing Cardiac: no chest pain, palpitations, edema, orthopnea or lightheadedness GI: see HPI : no dysuria or hesitancy Extremities: no joint pain or weakness Skin: no rash All Other Systems: Reviewed and Negative (Keiry Garcia CRNP) Medications Medications Administered Medications (Trade) Dose Ordered Sig/Matilda Route Start Time Stop Time Status Last Admin Dose Admin Magnesium Sulfate (Magnesium Sulfate) 1 gm NOW STAT IV 06/24/17 20:05 06/24/17 20:06 DC 06/24/17 20:28 1 GM Sodium Chloride 1,000 ml @ 80 mls/hr [id number] IV 06/24/17 23:00 07/24/17 22:59 06/26/17 00:40 80 MLS/HR Pantoprazole Sodium 40 mg/ Syringe 10 ml @ 5 mls/min DAILY@09,21 IV 06/24/17 21:00 07/24/17 20:59 06/26/17 09:08 5 MLS/MIN Ondansetron HCl (Zofran Inj) 4 mg STK-MED ONCE .ROUTE 06/24/17 21:48 06/24/17 21:49 DC 06/24/17 21:52 4 MG Acetaminophen (Tylenol Tab) 1,000 mg BID PO 06/25/17 09:00 07/25/17 08:59 06/25/17 21:27 1,000 MG Cyclobenzaprine HCl (Flexeril Tab) 10 mg HS PO 06/25/17 21:00 07/25/17 20:59 06/25/17 21:27 10 MG Metoprolol Tartrate (Lopressor Tab) 25 mg BID PO 06/25/17 09:00 1/25/18 08:59 06/26/17 09:08 25 MG (Keiry Garcia CRNP) Objective Vital Signs Date Time Temp Pulse Resp B/P (MAP) Pulse Ox O2 Delivery O2 Flow Rate FiO2 06/26/17 12:15 36.8 93 18 97 06/26/17 12:15 Room Air 06/26/17 08:37 36.8 93 18 123/64 (83) 97 Room Air 06/26/17 08:00 Room Air 06/26/17 04:00 36.6 74 133/66 (88) 97 Room Air 06/26/17 04:00 97 Room Air 06/26/17 00:00 36.3 72 125/52 (76) 95 Room Air 06/26/17 00:00 95 Room Air 06/25/17 20:45 37.2 88 18 135/73 (93) 94 Room Air 06/25/17 20:00 Room Air 06/25/17 16:39 37.0 83 18 143/53 (83) 94 Room Air 06/25/17 16:00 Room Air (Keiry Garcia CRNP) Physical Exam Notes: General: no distress Eyes: normal inspection, PERLL Respiratory: chest non tender, clear to auscultation, normal breath sounds, no respiratory distress, no accessory muscle use Cardiac: regular rate and rhythm, no rub or gallop, no murmur, no edema, no jvd GI/: active bowel sounds, no abd pain or tenderness, soft, non distended Extremities: normal range of motion, normal strength, non tender Neuro/Psych: alert and oriented x 3, normal mood and affect Skin: normal color, dry, left elbow edema improved from yesterday, continues to have ecchymosis and mild swelling on left side of head (Keiry Garcia CRNP) Laboratory Results Last 24 Hours Test 06/26/17 05:05 White Blood Count 3.02 K/uL Red Blood Count 2.80 M/uL Hemoglobin 9.2 g/dL Hematocrit 27.3 % Mean Corpuscular Volume 97.5 fL Mean Corpuscular Hemoglobin 32.9 pg Mean Corpuscular Hemoglobin Concent 33.7 g/dl Platelet Count 161 K/uL Mean Platelet Volume 8.9 fL Neutrophils (%) (Auto) 48.3 % Lymphocytes (%) (Auto) 19.9 % Monocytes (%) (Auto) 23.2 % Eosinophils (%) (Auto) 6.0 % Basophils (%) (Auto) 2.3 % Neutrophils # (Auto) 1.46 K/uL Lymphocytes # (Auto) 0.60 K/uL Monocytes # (Auto) 0.70 K/uL Eosinophils # (Auto) 0.18 K/uL Basophils # (Auto) 0.07 K/uL RDW Standard Deviation 63.7 fL RDW Coefficient of Variation 17.7 % Immature Granulocyte % (Auto) 0.3 % Immature Granulocyte # (Auto) 0.01 K/uL Sodium Level 139 mmol/L Potassium Level 3.7 mmol/L Chloride Level 109 mmol/L Carbon Dioxide Level 25 mmol/L Anion Gap 5.0 mmol/L Blood Urea Nitrogen 11 mg/dl Creatinine 1.02 mg/dl Est Creatinine Clear Calc Drug Dose 51.3 ml/min Estimated GFR () 61.4 Estimated GFR (Non- 53.0 BUN/Creatinine Ratio 11.1 Random Glucose 96 mg/dl Calcium Level 8.2 mg/dl Vitamin B12 Level 1506 pg/mL Folate 10.27 ng/mL (Keiry Garcia CRNP) Assessment and Plan Ms. Thao is a 76 year old woman here for mechanical fall with subsequent rectal bleeding. GI Bleed, anemia -Consult GI - colonoscopy tomorrow -Hgb stable. -Abdominal CT unremarkable except for lung findings of Extensive subpleural reticular and ground glass opacities at the lung bases likely represent either atelectasis or postinfectious/postinflammatory change. 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 Discussed with KARIME Garcia and agree with findings and plan as documented in the note. Any exceptions or clarifications are listed here: Patient reports no further bleeding today, but she continues to have her chronic loose stools. Hemoglobin is stable from yesterday at 9.2. C. difficile test was negative. She had 2 episodes of bright red blood per rectum on the day of admission. Denies abdominal pain. She is a bit frustrated about having to wait around for another day for her colonoscopy. Vitals reviewed, telemetry with sinus rhythm in the 70s and 80s NAD, obese RRR no MGR Lungs clear to auscultation bilaterally Abdomen positive bowel sounds soft nontender nondistended Extremities has developed 1+ pitting edema in the legs bilaterally Patient is a 76-year-old female with a history of non-Hodgkin's lymphoma the left axilla who recently finished chemotherapy several weeks ago, history of breast cancer, history of CVA on Plavix, here with bright red blood per rectum and a mild hemoglobin drop from 11-9. Hemoglobin has remained stable and there is been no further rectal bleeding. C. difficile antigen in the stool is negative. Vital signs stable. -She did have some associated abdominal pain prior to the bleeding, this could be ischemic colitis -Discussed case with GI again today-will begin colonoscopy prep this evening in anticipation for colonoscopy tomorrow-if normal, she can be discharged home tomorrow evening Documented By: Deisy Davalos (Deisy Davalos MD)
[2017-06-26 16:09] VITALS: BP 144/72; PULSE 78; TEMP 36.9; O2SAT 99
[2017-06-26] MEDS ORDERED: LAVAGE SOLUTION 4000ML PO SCH (19:00)
[2017-06-26] MEDS ORDERED: NURSING VERBAL MED ORDER ONE ×2 (19:45)
--- NOTE | 2017-06-26 20:08 | GASTROENTEROLOGY PROGRESS NOTE ---
DATE: 06/26/2017 GASTROENTEROLOGY INPATIENT PROGRESS NOTE SUBJECTIVE: Chart reviewed, patient examined, patient without evidence of C. diff infection. The patient has not reported any more episodes of rectal bleeding since at least Saturday. She does, however, report that her stools have become increasingly more loose than they had been. There have been no fevers or chills described and the patient is currently afebrile at 36.9, blood pressure 144/72, respirations 18, heart rate 78 with 99% on room air. The patient has had limited oral intake in anticipation of a colonoscopy, which as we discussed would be planned for , while we are awaiting the patient's C. diff results today. The patient is without any abdominal pain. MEDICATIONS: Reviewed and include polyethylene glycol, cyclobenzaprine, Lopressor, loperamide, Ativan, meclizine, heparin, and pantoprazole twice daily 40 mg. REVIEW OF SYSTEMS: Otherwise noncontributory based on 13-point exam except for mentioned above. PHYSICAL EXAMINATION: GENERAL: The patient is awake, alert and oriented x3. HEENT: Sclerae are anicteric contact moist. Oral mucosa moist. HEART: Normal S1, S2. LUNGS: Clear to auscultation. ABDOMEN: Soft, flat, nontender, nondistended with good bowel sounds. EXTREMITIES: Without edema. RECTAL: Deferred. IMPRESSION AND PLAN: The patient with symptoms of diarrhea without evidence of obvious infection. Stool studies are without Clostridium difficile infection, a repeat is reportedly pending. The patient is agreeable to colonoscopy and I will begin a bowel prep this evening with anticipation of colonoscopy tomorrow afternoon. The patient is aware of the afternoon procedure time. She agrees to proceed. We will keep patient n.p.o. after midnight except meds and further recommendations once colonoscopy with possible biopsies tomorrow are completed. LABORATORY STUDIES: At the present time shows a hemoglobin of 9.2, which has been stable over the past 2 days. She presented to the ER on Neil night at 7:00 p.m. with a hemoglobin of 10.3. Her white count is slightly low at 3.0. All questions answered. BARBARA
[2017-06-26 20:48] VITALS: BP 160/76; PULSE 80
[2017-06-26] MEDS: CYCLOBENZAPRINE HCL 10 MG TAB PO SCH (20:50)
--- NOTE | 2017-06-26 22:25 | NUR ---
ID: Pt A&Ox4. Denies pain. Left subclavian port site clear, patent. Lungs clear to auscultation on RA. Bowel sounds x4 quads normoactive. OOB voiding in bedside toilet without difficulty. Gait steady. Tolerating a regular diet. D/C uncertain at this time. Call cervantes in reach.
[2017-06-27 00:06] VITALS: BP 149/78; PULSE 72; TEMP 36.2; O2SAT 94
[2017-06-27 05:32] LABS: BASO % 0.8 %; BASO ABS # 0.03 K/uL (0-0.2); EOS % 4.5 %; EOS ABS # 0.18 K/uL (0-0.5); HEMATOCRIT 29.5 % (37-47); HEMOGLOBIN 9.9 g/dL (12.0-16.0); IG# 0.01 K/uL (0.00-0.02); LYMPH % 21.3 %; LYMPH ABS # 0.85 K/uL (1.2-3.4); MEAN CORPUSCULAR HEMOGLOBIN 32.6 pg (25-34); MEAN CORPUSCULAR HGB CONC 33.6 g/dl (32-36); MEAN PLATELET VOLUME 8.6 fL (7.4-10.4); MONO % 16.8 %; MONO ABS # 0.67 K/uL (0.11-0.59); NEUT % 56.3 %; NEUT ABS # 2.26 K/uL (1.4-6.5); PLATELET COUNT 173 K/uL (130-400); RED CELL DISTRIBUTION WIDTH CV 17.6 % (11.5-14.5); RED CELL DISTRIBUTION WIDTH SD 62.3 fL (36.4-46.3)
[2017-06-27 05:58] LABS: CALCIUM 8.7 mg/dl (8.5-10.1); CREATININE 0.99 mg/dl (0.60-1.20); POTASSIUM 3.5 mmol/L (3.5-5.1)
[2017-06-27 07:54] VITALS: BP 150/74; PULSE 80; TEMP 36.5; O2SAT 98
--- NOTE | 2017-06-27 08:17 | NUR ---
Case management note. Pt transferred to room 260-1. Referral previously made to [facility]. Case management to follow with pt.
[2017-06-27] MEDS: METOPROLOL TARTRATE 25 MG TAB PO SCH (08:26)
[2017-06-27] MEDS: ACETAMINOPHEN 500 MG TAB PO SCH (08:26)
[2017-06-27] MEDS: PANTOprazole INJ 40 MG in SYRINGE 0 ML IV SCH (08:27)
[2017-06-27] MEDS ORDERED: FUROSEMIDE 40 MG TAB PO SCH (09:00)
--- NOTE | 2017-06-27 14:52 | DIAGNOSTIC IMAGING REPORT ---
RIGHT LOWER EXTREMITY VENOUS DOPPLER HISTORY: right leg more edematous than left COMPARISON STUDY: None. FINDINGS: There is normal compressibility, flow, and augmentation within the right lower extremity deep venous system. IMPRESSION: No DVT within the right lower extremity Electronically signed by: Braxton Capps M.D. 06/27/2017 2:51 PM Dictated Date/Time: 06/27/2017 2:51 PM
--- NOTE | 2017-06-27 15:01 | Discharge Instructions ---
Discharge Instructions Date of Service Jun 27, 2017. Admission Reason for Admission: Rectal Bleeding Discharge Discharge Diagnosis / Problem: Rectal bleeding Discharge Goals Goal(s): Improve disease control Activity Recommendations Activity Limitations: resume your previous activity . Instructions / Follow-Up Instructions / Follow-Up Please follow up with primary care within 1-2 weeks. Please have your blood count checked as scheduled with Oncology in 1 week. Current Hospital Diet Patient's current hospital diet: Regular Diet Discharge Diet Recommended Diet: Regular Diet Procedures Procedures Performed: Colonoscopy Chest xray Left elbow xray Right lower extremity Doppler ultrasound CT abdomen/pelvis Pending Studies Studies pending at discharge: yes List of pending studies: Colon polyp biopsy Laboratory Results Last 24 Hours Test 06/27/17 05:17 White Blood Count 4.00 K/uL Red Blood Count 3.04 M/uL Hemoglobin 9.9 g/dL Hematocrit 29.5 % Mean Corpuscular Volume 97.0 fL Mean Corpuscular Hemoglobin 32.6 pg Mean Corpuscular Hemoglobin Concent 33.6 g/dl Platelet Count 173 K/uL Mean Platelet Volume 8.6 fL Neutrophils (%) (Auto) 56.3 % Lymphocytes (%) (Auto) 21.3 % Monocytes (%) (Auto) 16.8 % Eosinophils (%) (Auto) 4.5 % Basophils (%) (Auto) 0.8 % Neutrophils # (Auto) 2.26 K/uL Lymphocytes # (Auto) 0.85 K/uL Monocytes # (Auto) 0.67 K/uL Eosinophils # (Auto) 0.18 K/uL Basophils # (Auto) 0.03 K/uL RDW Standard Deviation 62.3 fL RDW Coefficient of Variation 17.6 % Immature Granulocyte % (Auto) 0.3 % Immature Granulocyte # (Auto) 0.01 K/uL Sodium Level 139 mmol/L Potassium Level 3.5 mmol/L Chloride Level 109 mmol/L Carbon Dioxide Level 25 mmol/L Anion Gap 5.0 mmol/L Blood Urea Nitrogen 10 mg/dl Creatinine 0.99 mg/dl Est Creatinine Clear Calc Drug Dose 53.5 ml/min Estimated GFR () 63.7 Estimated GFR (Non- 55.0 BUN/Creatinine Ratio 10.0 Random Glucose 99 mg/dl Calcium Level 8.7 mg/dl Medical Emergencies . Who to Call and When: Medical Emergencies: If at any time you feel your situation is an emergency, please call 911 immediately. . Non-Emergent Contact Non-Emergency issues call your: Primary Care Provider, Oncologist Call Non-Emergent contact if: you have a fever, temperature is above 100.5, your pain is not controlled, your pain is worsening, your pain is unusual for you, your pain is concerning you, you have any medication questions you have return of your bleeding in the stool . . "Provider Documentation" section prepared by Keiry Garcia. . VTE Core Measure Inpt VTE Proph given/why not?: SCD's, Contraindicated
--- NOTE | 2017-06-27 15:19 | NUR ---
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 Miner's nurse tells me that there are no openings for next week so she will have to talk w/ the doctor about where they can fit the pt in and then they will call the pt w/ the appt info. I call [facility] several times - no answer. I will continue to call until I can get thru and then contact the pt w/ the appt details. Addendum: 06/27/17 at 1609 by Nae Garcia SERV I was able to reach the [facility] GI Office and ask for a follow up appointment for pt. They will contact her directly to arrange the appointment.
--- NOTE | 2017-06-27 15:21 | Discharge Summary ---
Discharge Summary Date of Service Jun 27, 2017. Discharge Summary Admission Date: Jun 24, 2017 at 21:11 Discharge Date: Jun 27, 2017 Discharge Disposition: Home Principal Diagnosis: Rectal bleed Problems/Secondary Diagnoses: Anemia Weakness Non Hodgkin Lymphoma Chronic diarrhea H/o CVA H/o breast CA 1993 Colon polyp Diverticulosis Left elbow contusion GERD Chronic diastolic CHF Peripheral edema Anxiety disorder NOS H/o atrial tachycardia Immunizations: Have You Had Influenza Vaccine: Unknown History of Tetanus Vaccine?: Unknown History of Pneumococcal: Unknown History of Hepatitis B Vaccine: Unknown Procedures: Colonoscopy 06/27-diverticulosis, ascending colon polyp, internal hemorrhoids, no active or old bleeding ELBOW MIN 3 VIEWS ROUTINE CLINICAL HISTORY: 76 years-old Female presenting with fall with subsequent edema. TECHNIQUE: Frontal, oblique, and lateral views of the left elbow were obtained. COMPARISON: None. FINDINGS: No acute fracture or malalignment. No advanced degenerative change. Skin thickening noted over the olecranon. No subcutaneous emphysema. No gross evidence of an elbow joint effusion. IMPRESSION: 1. No acute osseous injury of the left elbow. 2. Soft tissue contusion of the subcutaneous tissues overlying the olecranon. SINGLE VIEW CHEST CLINICAL HISTORY: Basilar rhonchi. FINDINGS: An AP, portable, upright chest radiograph is compared to study dated 04/08/2017 and correlated with PET/CT dated 06/12/2017 The examination is degraded by portable technique and patient rotation. A left subclavian central venous infusion port is unchanged in position.. The cardiomediastinal silhouette is unremarkable. There is atherosclerotic calcification of the thoracic aorta. Postoperative change and volume loss is identified in the left lung. Cortical scarring is seen in the left midlung. Chronic interstitial thickening is unchanged in previous. No airspace consolidation or large pleural effusion is identified. No pneumothorax is seen. The skeletal structures are osteopenic. The bony thorax is grossly intact. Degenerative change is noted throughout the imaged spine. Fusion hardware is present in the upper lumbar region. Surgical clips are noted in the right axilla. IMPRESSION: 1. No acute cardiopulmonary abnormality. 2. Postoperative change is again seen in the left lung. ABD/PELVIS WITHOUT FOR STONE CLINICAL HISTORY: 76 years-old Female presenting with bloody diarrhea. Fall this am. TECHNIQUE: Multidetector CT of the abdomen and pelvis was performed without the use of intravenous contrast. IV contrast: None. A dose lowering technique was used consistent with the principles of ALARA (as low as reasonably achievable). COMPARISON: Plain radiograph from 07/14/2015 and ultrasound of the kidneys from 2014. CT DOSE (mGy.cm): The estimated cumulative dose is 1708.96 mGy.cm. FINDINGS: Accredited Legal Secretary topogram: Extensive surgical clips in the right upper quadrant and thoracolumbar posterior fusion. Lung bases: Extensive subpleural reticular and groundglass opacities either atelectasis or postinfectious/postinflammatory change. Coronary artery calcification. The tip of a central venous catheter is in place at the superior cavoatrial junction. Top normal heart size. No pericardial or pleural effusion. Liver: Normal morphology. Normal density. Biliary: Mild biliary ductal prominence likely a reservoir effect in the post cholecystectomy state. Gallbladder surgically absent. Pancreas: Moderate parenchymal atrophy. Spleen: Normal noncontrast appearance. Adrenal glands: Normal noncontrast appearance. Kidneys and ureters: Normal noncontrast appearance. No nephrolithiasis. No hydronephrosis. Normal ureters. Bladder: Normal. Pelvic organs: Uterus surgically absent. Bowel: Limited diverticula in the proximal sigmoid colon evaluation for a site of gastrointestinal hemorrhage is limited without intravenous contrast. Allowing for this, no high density material within the bowel lumen to suggest acute hemorrhage. No bowel obstruction. Peritoneal cavity: No free fluid or intraperitoneal gas. Lymph nodes: No gross lymphadenopathy allowing for noncontrast technique. Vague fat infiltration noted along the left external iliac region with multiple subcentimeter asymmetrically prominent lymph nodes. Vasculature: Aorta and IVC patent and normal in caliber. Abdominal wall: Fat-containing inguinal hernias, left greater than right. Postsurgical changes of the infra abdominal midline abdomen. The right breast is not visualized, possibly outside the [id number] for postmastectomy. Musculoskeletal: Extensive postsurgical changes of the spine with thoracolumbar posterior fusion spanning T11-S1. Laminectomy defects of L3 through L5. Partial osseous fusion of the posterior elements at the surgical levels. Mild osteopenia may be present. No hardware breakage is evident. IMPRESSION: 1. Allowing for noncontrast technique, no acute intra-abdominal pathology. 2. Limited diverticula in the sigmoid colon. 3. Extensive subpleural reticular and groundglass opacities at the lung bases likely represent either atelectasis or postinfectious/postinflammatory change. Consultations: Dr. Sauer for GI Medication Reconciliation Continued Medications: Acetaminophen (Tylenol) 500 Mg Tab 1000 MG PO BID, TAB Calcium Carbonate-Vitamin D (Calcium 600 + D) 1 Tab Tab 1 TAB PO DAILY Cholecalciferol (Vitamin D3) 1,000 Unit Tab 1000 INTER.UNIT PO DAILY, TAB Cinnamon (Cinnamon) 500 Mg Cap 1000 MG PO DAILY Clopidogrel Bisulfate (Clopidogrel) 75 Mg Tab 75 MG PO DAILY Colestipol Hcl (Colestid) 1 Gm Tab 2 GM PO QAM Cyclobenzaprine Hcl (Flexeril) 10 Mg Tab 10 MG PO HS Fish Oil ([place]-3) 1 Ea Cap 1 CAP PO QAM Furosemide (Lasix) 20 Mg Tab 40 MG PO QAM Furosemide (Lasix) 20 Mg Tab 20 MG PO QPM Loperamide Hcl (Imodium) 2 Mg Cap 2 MG PO TID PRN for Diarrhea Lorazepam (Lorazepam) 1 Mg Tab 1 MG PO TID PRN for Anxiety Meclizine Hcl (Meclizine Hcl) 25 Mg Tab 25 MG PO QID PRN for Dizziness or Vertigo, TAB Metoprolol Tartrate (Lopressor) 25 Mg Tab 25 MG PO BID Ranitidine (Zantac) 300 Mg Tab 300 MG PO BID Discontinued Medications: Doxycycline Hyclate (Doxycycline Hyclate) 100 Mg Tab 100 MG PO BID, TAB Discharge Exam ROS Constitutional: no chills, aches, sweats or fever Respiratory: no sob,cough, sputum, or wheezing Cardiac: no chest pain, palpitations, edema, orthopnea or lightheadedness GI: no abdominal pain, nausea, vomiting, diarrhea or constipation : no dysuria or hesitancy Extremities: no joint pain or weakness Skin: no rash PE General: no distress Eyes: normal inspection, PERLL Respiratory: chest non tender, clear to auscultation, normal breath sounds, no respiratory distress, no accessory muscle use Cardiac: regular rate and rhythm, no rub or gallop, no murmur, no edema, no jvd GI/: active bowel sounds, no abd pain or tenderness, soft, non distended Extremities: normal range of motion, normal strength, non tender Neuro/Psych: alert and oriented x 3, normal mood and affect Skin: normal color, dry Hospital Course Ms. Thao is a 76 y/o F who presented with bright red rectal bleeding x few hours. She reported having had a fall secondary to weakness earlier on the day of admission. She went to [facility] where she had a head ct that was reportedly negative for any bleeds. She was aware of the fall, did not lose consciousness. She has non Hodgkin's lymphoma and recently completed chemo. She will be starting radiation therapy soon. After her fall, her son reported that she was in the bathroom at her grand daughter's place and noticed blood on the tissue and in the bowl. She has had chronic diarrhea for which she uses Imodium. GI Bleed, anemia -Consult GI - colonoscopy 06/27 -Hgb remained stable, 9.9 today. -Abdominal CT unremarkable - B12 high, folate wnl - Patient did not have any further bleeding while at the hospital S/P Mechanical Fall - ice to elbow - Xray of elbow negative for fracture Non Hodgkins lymphoma - chemo completed, has not started radiation CKD stage 3 - stable - avoid nephrotoxins where possible h/o of CVA - held plavix and fish oil - restarted for discharge hypomagnesemia - repleated Total Time Spent: Greater than 30 minutes This includes examination of the patient, discharge planning, medication reconciliation, and communication with other providers. Discharge Instructions Please refer to the electronic Patient Visit Report (Discharge Instructions) for additional information. Follow-Up Follow up with GI and PcP in about a week Additional Copies To Kulwant Sauer M.D.; Li Miner M.D. 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 Discussed with KARIME Garcia and agree with findings and plan as documented in the note. Any exceptions or clarifications are listed here: No further bleeding since admission. Hgb went up today to 9.9. COlonoscopy completed this afternoon with results as above. She was doing very well and was tolerating regular diet prior to discharge. Recommend she have her CBCC checked in 1 week as scheduled with Oncology. Follow up with GI and PCP within 1-2 weeks. Was told she would be notified of colon polyp biopsy results by letter next week. Doppler RLE neg for DVT given worsening swelling today Vitals reviewed NAD, obese RRR with some occasional ectopy, no MGR Lungs clear to auscultation bilaterally Abdomen positive bowel sounds soft nontender nondistended Extremities has developed 1+ pitting edema in the legs bilaterally Patient is a 76-year-old female with a history of non-Hodgkin's lymphoma the left axilla who recently finished chemotherapy several weeks ago, history of breast cancer, history of CVA on Plavix, chronic diastolic CHF, GERD, anxiety, here with bright red blood per rectum and a mild hemoglobin drop from 11-9. Hemoglobin has remained stable and there is been no further rectal bleeding. C. difficile antigen in the stool is negative. Vital signs stable. Colonoscopy without active bleeding source. Could have been diverticulosis vs hemorrhoidal bleeding. Ok to restart Plavix on discharge Documented By: Deisy Davalos
--- NOTE | 2017-06-27 15:31 | NUR ---
Case Management- Met with patient in room. Patient is to be discharged today. She is returning home with [facility]. Patient reports she has transport home denies any further needs. Faxed discharge to her home health. CM following
[2017-06-27] MEDS ORDERED: PROPOFOL IV EMULSION 10 MG/ML 20 ML VIAL IV ONE (15:44)
[2017-06-27] MEDS ORDERED: LIDOCAINE HCL 2% 2 ML VIAL (20MG/ML) ONE (15:44)
--- NOTE | 2017-06-27 15:45 | NUR ---
ID: A/O x 4. Denies pain at this time. X1 assist with a walker. Hx of falls. Left A port has IV maintenance fluid running to gravity. Denies cp/sob on RA. C/O numbness and tingling bilateral hands from chemo. Passing gas, pt states last bm was around 0400. She has been npo since midnight. Voids in the toilet. Swollen, ecchymotic spot on left parietal. Scab on the left elbow. Patient is currently in endoscopy department, assessed here in order to complete pre sedation intervention. Pt has glasses and dentures with her. Pt may be discharged after procedure.
[2017-06-27] MEDS ORDERED: FUROSEMIDE 20 MG TAB PO SCH (17:00)
--- NOTE | 2017-06-27 17:35 | Anesthesiology Progress Note ---
Anesthesia Post Op Note Date & Time Jun 27, 2017 at 17:35 Vital Signs Pain Intensity: 0.0 Vital Signs Past 12 Hours Date Time Temp Pulse Resp B/P (MAP) Pulse Ox O2 Delivery O2 Flow Rate FiO2 06/27/17 17:12 75 20 167/73 (104) 96 Room Air 06/27/17 16:57 36.6 69 20 165/69 (101) 98 Room Air 06/27/17 16:42 36.6 74 20 142/69 (93) 98 Room Air 06/27/17 15:00 36.6 83 20 170/81 (110) 98 Room Air 06/27/17 07:54 36.5 80 18 150/74 (99) 98 Room Air 06/27/17 07:45 Room Air Notes Mental Status: alert / awake / arousable, participated in evaluation Pt Amnestic to Procedure: Yes Nausea / Vomiting: adequately controlled Pain: adequately controlled Airway Patency, RR, SpO2: stable & adequate BP & HR: stable & adequate Hydration State: stable & adequate Anesthetic Complications: no major complications apparent
--- NOTE | 2017-06-27 17:47 | GI REPORT ---
Procedure Date: 06/27/2017 4:08 PM Procedure: Colonoscopy Indications: Hematochezia Medicines: Propofol per Anesthesia Complications: No immediate complications. Estimated blood loss: Minimal. Estimated Blood Loss: Estimated blood loss was minimal. Procedure: Pre-Anesthesia Assessment: - Prior to the procedure, a History and Physical was performed, and patient medications and allergies were reviewed. The patient's tolerance of previous anesthesia was also reviewed. The risks and benefits of the procedure and the sedation options and risks were discussed with the patient. All questions were answered, and informed consent was obtained. Prior Anticoagulants: The patient has taken no previous anticoagulant or antiplatelet agents. ASA Grade Assessment: III - A patient with severe systemic disease. After reviewing the risks and benefits, the patient was deemed in satisfactory condition to undergo the procedure. After I obtained informed consent, the scope was passed under direct vision. Throughout the procedure, the patient's blood pressure, pulse, and oxygen saturations were monitored continuously. The Scope was introduced through the anus and advanced to the terminal ileum, with identification of the appendiceal orifice and IC valve. The colonoscopy was performed without difficulty. The patient tolerated the procedure well. The quality of the bowel preparation was good. Findings: The perianal and digital rectal examinations were normal. Pertinent negatives include normal sphincter tone, no palpable rectal lesions and no anal lesion or abnormality was detected. A 6 mm polyp was found in the distal ascending colon. The polyp was sessile. The polyp was removed with a cold snare. Resection and retrieval were complete. Estimated blood loss was minimal. Verification of patient identification for the specimen was done by the physician and forest ranger technician using the patient's name and medical record number. Many small-mouthed diverticula were found in the sigmoid colon, descending colon and ascending colon. The terminal ileum appeared normal. Non-bleeding internal hemorrhoids were found during retroflexion. The hemorrhoids were mild. The exam was otherwise without abnormality. Impression: - One 6 mm polyp in the distal ascending colon, removed with a cold snare. Resected and retrieved. - Active or recent bleeding is not identified during this procedure. Recommendation: - [facility]. - Advance diet as tolerated. - Continue present medications. - Await pathology results. - Repeat colonoscopy for surveillance based on pathology results. - Check hemoglobin daily. MD Kulwant Reyes MD 06/27/2017 5:46:39 PM This report has been signed electronically. Note Initiated On: 06/27/2017 4:08 PM I attest to the content of the Intraoperative Record and orders documented therein, exceptions below
[2017-06-27 17:57] VITALS: BP 169/96; PULSE 72; TEMP 36.4; O2SAT 98
[2017-06-27 18:00] VITALS: O2SAT 98
--- NOTE | 2017-06-27 19:29 | GASTROENTEROLOGY PROGRESS NOTE ---
DATE: 06/27/2017 HISTORY OF PRESENT ILLNESS: Chart reviewed, patient examined. The patient underwent colonoscopy this afternoon with a small polyp in the proximal colon, pancolonic diverticulosis and small internal hemorrhoids. No active or recent bleeding was identified throughout the colon to the terminal ileum. The patient has been feeling well. Her hemoglobin has remained stable and is actually increased from yesterday from 9.2 to 9.9. The patient has not received any blood products during this admission. The patient has felt well prior to her procedure today. From a GI perspective, I believe it is reasonable to discharge the patient as her hemoglobin has been stable. No further bleeding reported and will await the results of her polyp, although this is an unlikely source of the patient's bleeding. More likely, would have been the diverticular disease or perhaps hemorrhoids. All questions answered for the patient. Thank you for allowing me to participate in this patient's care.
[2017-06-27 19:34] VITALS: BP 169/96; PULSE 72; TEMP 36.4; O2SAT 98
== END 2017-06-27 19:45 | disposition home health service (06) | DRG 378 ==
LOC: C.EDB 18:28 → C.2E 21:11 → ENRESERV 21:26 → C.MS2W 06-26 11:10 → ENRESERV 06-26 11:22
PROVIDERS: ADMIT Hospitalist; ATTEND Hospitalist
PROC: 0DBK8ZX Excision of Ascending Colon, Via Natural or Artificial Opening Endoscopic, Diagnostic (ICD-10-PCS; principal; 2017-06-27 15:00)
DX: K62.5 Hemorrhage of anus and rectum (principal); C85.94 Non-Hodgkin lymphoma, unspecified, lymph nodes of axilla and upper limb; I13.0 Hypertensive heart and chronic kidney disease with heart failure and stage 1 through stage 4 chronic kidney disease, or unspecified chronic kidney disease; I50.32 Chronic diastolic (congestive) heart failure; D64.9 Anemia, unspecified; D12.2 Benign neoplasm of ascending colon; K57.30 Diverticulosis of large intestine without perforation or abscess without bleeding; K52.9 Noninfective gastroenteritis and colitis, unspecified; N18.3 Chronic kidney disease, stage 3 (moderate); E83.42 Hypomagnesemia; S00.83XA Contusion of other part of head, initial encounter; S50.02XA Contusion of left elbow, initial encounter; W19.XXXA Unspecified fall, initial encounter; R91.8 Other nonspecific abnormal finding of lung field; K21.9 Gastro-esophageal reflux disease without esophagitis; Z66 Do not resuscitate; E66.9 Obesity, unspecified; Z68.31 Body mass index [BMI] 31.0-31.9, adult; Z92.21 Personal history of antineoplastic chemotherapy; Z86.73 Personal history of transient ischemic attack (TIA), and cerebral infarction without residual deficits; Z85.3 Personal history of malignant neoplasm of breast; Z79.02 Long term (current) use of antithrombotics/antiplatelets; Z79.1 Long term (current) use of non-steroidal anti-inflammatories (NSAID); Z79.899 Other long term (current) drug therapy; Z88.0 Allergy status to penicillin; Z88.1 Allergy status to other antibiotic agents; Z88.2 Allergy status to sulfonamides

== ENCOUNTER → 2017-10-09 | Outpatient (CLI) | payer BC ==
[~2017-10-09] MED LIST changes: +ACET-1256 PO; -ATV/1 PO; +ATV1 PO; +CALC-20 PO; -CALC500C70 PO; +CHOL1000 PO; +CINN1CAP2 PO; -CINNAMON PO; -CRANBERRY CAPS PO; -CYAN10005 PO; +LPR25 PO; -METO25TA56 PO; +PLV75 PO; -TRAM-10 PO; -VITAMIN D 3 PO
--- NOTE | 2017-10-09 13:27 | DIAGNOSTIC IMAGING REPORT ---
PET/CT CLINICAL HISTORY: Lymphoma. COMPARISON STUDY: PET/CT dated 06/12/2017. Abdominal CT dated 06/24/2017. TECHNIQUE: One hour following the IV administration of 11.53 mCi of F-18 FDG, PET/CT examination was performed from the orbital meatal line through the bony pelvis. Noncontrast CT is performed for the purposes of anatomic correlation and attenuation correction. Note that this does not reflect a diagnostic CT examination. Images were reviewed on a separate [employer] independent workstation. Fused images were obtained. Standard uptake values reported are maximum values within the region of interest expressed in gm/mL. FINDINGS: PET FINDINGS: Head and neck: There is expected physiologic activity within the visualized brain parenchyma at the skull base and the salivary glands. No pathologically enlarged or FDG avid cervical lymph nodes are identified. Thorax: Evaluation of the thorax demonstrates expected physiologic myocardial activity. There is no axillary, mediastinal, or hilar adenopathy. There is a focus of subpleural consolidative change in the left upper lobe seen image #58. This appears to demonstrate FDG activity with a maximum SUV of 3.3. Abdomen and pelvis: There is expected activity within the liver, spleen, kidneys, renal collecting system, and bladder. Low-level bowel activity is likely within physical limits. No adenopathy is identified in the abdomen or pelvis. There is no inguinal adenopathy. Unenhanced CT images: The visualized brain parenchyma at the skull base is normal in appearance noting age-related involutional change. Orbital contents are normal as visualized. The imaged paranasal sinuses and the mastoid air cells are clear. The salivary and thyroid glands are within normal limits. There is atherosclerotic calcification of the thoracic aorta which is normal in caliber. A left subclavian central venous infusion port is in place. The heart is normal in size and without pericardial effusion. The right breast is surgically absent. There are postoperative changes from left-sided pulmonary resection, with volume loss in the left lung and elevation of left hemidiaphragm. Scarring in the lingula is similar to previous. No pleural effusion is identified. The gallbladder is surgically absent. The unenhanced liver, spleen, adrenal glands are grossly normal. The spleen measures 11.4 cm in length. The pancreas is atrophic and grossly normal. The kidneys demonstrate cortical atrophy and are without hydronephrosis. No bowel obstruction is identified. The abdominal aorta is normal in caliber noting moderate atherosclerotic calcification. No intraperitoneal free air or abdominal ascites is seen. The bladder is decompressed and grossly unremarkable. The uterus is surgically absent. No adnexal lesion is seen. There are small bilateral fat-containing inguinal hernias. The skeletal structures are osteopenic. No lytic or blastic lesion is identified. Extensive laminectomy and fusion change is seen in the thoracolumbar spine. There is thoracal lumbar scoliosis. Surgical clips are present in the right axilla. IMPRESSION: 1. No pathologically enlarged or FDG avid lymph nodes are identified. 2. The spleen is normal in size. 3. There is a 1 cm focus of subpleural consolidation in the left upper lobe. This appears to demonstrate FDG activity and is new from 06/12/2017. This is likely on an infectious/inflammatory basis. A precautionary follow-up chest CT in 3-4 months time is recommended to document resolution. 4. There are postoperative changes from left-sided pulmonary resection. 5. Additional findings as above. Electronically signed by: Gallito Escalera M.D. 10/09/2017 1:26 PM Dictated Date/Time: 10/09/2017 1:15 PM
== END | disposition home or self-care (01) ==
LOC: C.PET 10:24
PROVIDERS: ATTEND Internal Medicine Hematology & Oncology
DX: C83.34 Diffuse large B-cell lymphoma, lymph nodes of axilla and upper limb (principal)

== ENCOUNTER → 2018-01-17 | Outpatient (CLI) | payer BC | END | disposition home or self-care (01) | LOC: C.LABMFLN 16:05 | PROVIDERS: ATTEND Family Medicine | DX: R19.7 Diarrhea, unspecified (principal) ==

== ENCOUNTER 2019-06-03 11:49 | Observation (INO) ==
[2019-06-03] MEDS ORDERED: ASPIRIN CHEW 324 MG PO STA (12:09)
[2019-06-03 12:47] LABS: Basophils # (auto) 0.03 K/uL (0-0.2); Basophils % (auto) 0.6 %; Eosinophils # (auto) 0.13 K/uL (0-0.5); Eosinophils % (auto) 2.4 %; Hematocrit (blood only) 35.7 % (37-47); Lymphocytes # (auto) 1.49 K/uL (1.2-3.4); Lymphocytes % (auto) 27.8 %; Mean Corpuscular Hemoglobin 33.4 pg (25-34); Mean Corpuscular Hgb Conc 33.6 g/dL (32-36); Mean Corpuscular Volume 99.4 fL (80-100); Mean Platelet Volume 9.4 fL (7.4-10.4); Monocytes # (auto) 0.55 K/uL (0.11-0.59); Monocytes % (auto) 10.3 %; Neutrophils # (auto) 3.16 K/uL (1.4-6.5); Neutrophils % (auto) 58.9 %; Platelet Count 153 K/uL (130-400); RDW Coefficient of Variation 14.5 % (11.5-14.5); RDW Standard Deviation 52.1 fL (36.4-46.3); Red Blood Count 3.59 M/uL (4.2-5.4); White Blood Count 5.36 K/uL (4.8-10.8)
--- NOTE | 2019-06-03 12:51 | XRay Report ---
SINGLE VIEW CHEST CLINICAL HISTORY: Atypical chest pain. FINDINGS: An AP, portable, upright chest radiograph is compared to study dated 05/28/2018. Correlatio n is made with chest CT dated 12/24/2017. The examination is degraded by portable technique and patien t rotation. A left subclavian central venous infusion port is unchanged in position. The heart is enl arged noting atherosclerotic calcification of the thoracic aorta. The pulmonary vasculature is noncon gested. There is mild elevation of left hemidiaphragm. Chronic interstitial thickening is similar to previous. Probable scarring, postoperative change, and volume loss in the left lung is unchanged. No airspace consolidation or large pleural effusion is identified. No pneumothorax is seen. The skeletal structures are osteopenic. Degenerative changes noted in the thoracic spine. Fusion hardware is seen at the thoracolumbar junction. Surgical clips are noted in the right axilla. IMPRESSION: Cardiomegaly and chronic changes as above. No acute cardiopulmonary abnormality is identi fied. Electronically signed by: Gallito Escalera M.D. 06/03/2019 12:50 PM
[2019-06-03 13:03] LABS: Alanine Aminotransferase 23 U/L (12-78); Albumin Level 3.8 gm/dl (3.4-5.0); Aspartate Aminotransferase 26 U/L (15-37); BUN Creatinine Ratio 12.9 (10-20); Blood Urea Nitrogen 15 mg/dl (7-18); Calcium 9.5 mg/dl (8.5-10.1); Carbon Dioxide 24 mmol/L (21-32); Chloride 108 mmol/L (98-107); Creatinine Clr Calc Pharmacy 43.1 ml/min; Est GFR (African American) 52.4; Est GFR (Non-African American) 45.2; Glucose 108 mg/dl (70-99); Lipase 154 U/L (73-393); Potassium 4.1 mmol/L (3.5-5.1); Sodium 138 mmol/L (136-145)
[2019-06-03 13:08] LABS: Albumin Globulin Ratio 1.1 (0.9-2); Alkaline Phosphatase 116 U/L (45-117); Bilirubin,Total 0.7 mg/dl (0.2-1); Globulin 3.4 gm/dl (2.5-4.0); Total Protein 7.2 gm/dl (6.4-8.2); Troponin I < 0.015 ng/ml (0-0.045)
--- NOTE | 2019-06-03 14:14 | Ultrasound Report ---
ULTRASOUND LEFT UPPER EXTREMITY VENOUS CLINICAL HISTORY: Left arm pain. COMPARISON STUDY: No priors. TECHNIQUE: Real-time, grayscale, and color Doppler sonography of the deep veins of the left upper ext remity is performed. Compression and augmentation were utilized. FINDINGS: There is no sonographic evidence of deep venous thrombosis identified in the left upper ext remity. Portions of the left subclavian vein and the axillary vein are not well visualized due to jody ging over the port. The left internal jugular, axillary, and brachial veins are patent and normally c ompressible. Normal venous waveforms and augmentation are seen within the left subclavian vein. The c ephalic and basilic veins are clear. The visualized radial and ulnar veins are patent. IMPRESSION: There is no sonographic evidence of deep venous thrombosis identified in the left upper e xtremity. Electronically signed by: Gallito Escalera M.D. 06/03/2019 2:12 PM
[2019-06-03] MEDS ORDERED: ONDANSETRON INJ 2 MG/ML 2 ML VIAL IV PRN (15:57)
[2019-06-03] MEDS ORDERED: POLYETHYLENE (MIRALAX) 17 GM PACK PO PRN (15:57)
[2019-06-03] MEDS ORDERED: ACETAMINOPHEN 325 MG TAB PO PRN (15:57)
--- NOTE | 2019-06-03 15:57 | History & Physical Report ---
Date of Service June 03, 2019 Assessment & Plan (1) Chronic pain of left upper extremity: I am unclear if the patient's left lower extremity pain represents atypical anginal equivalent versus symptoms of her reported spinal stenosis. As the possible atrial fibrillation is rate controlled, I suspect this is not the cause of her symptoms. Consider work-up of her cervical spine either in the hospital or as an outpatient. (2) Atrial fibrillation: Per the monitor and outpatient EKG, it does appear that the patient has rate controlled atrial fibrillation. She is already on Lopressor 25 mg twice daily which is likely why she is rate controlled. Will order troponins overnight along with an 2D echo in the morning. Check TSH. Check lipid panel. Patient's [id number] score is 6 which places her at high risk for CVA, will start Eliquis 5 mg twice daily. HAS-BLED score is 5 which also places her at high risk for possible bleeding. Patient is known to a noc engineer from previous possible atrial fibrillation 2017 we will consult their service for further recommendations. (3) Hypertension: Patient is on Lopressor 25 mg twice daily along with furosemide 20 mg daily. I will add amlodipine 5 mg daily secondary to her accelerated hypertension. (4) Acid reflux disease: Continue outpatient medication as ordered. (5) Stage 3 chronic kidney disease: Monitor renal function History of Present Illness Chief Complaint: Left upper extremity pain Primary Care Provider: Li Miner MD This is a 78-year-old female with past mental history medical history of non- Hodgkin's lymphoma, possible atrial fibrillation, previous breast cancer status post right mastectomy the presents today complaining of left upper extremity pain. Patient is a good historian is accompanied by her son. Patient tells me she is been experiencing discomfort in left upper extremity for the past 2 weeks. She tells me this is the whole arm. She notes that it is sore but not affected by movement. She does have a port in the left upper chest wall that she has had status post chemo for her NHL. She is currently not getting chemotherapy but the port is occasionally flushed. She mostly ignored the pain over the past 2 weeks but she presented to the cancer center yesterday for port to be flushed. She went to an her discomfort to she mentioned her discomfort to the person flushing the port and the suggestion was to see her primary care physician as soon as possible. Patient states that she went to her PCP today. At that time she had an EKG it was felt she was in atrial fibrillation was rate controlled. She is also found to be hypertensive with a blood pressure in the 190 systolic. She was told to present to the emergency room for further evaluation. At time my evaluation she is still complaining left upper extremity discomfort but notes that she typically has a lot of myalgia throughout her entire body and that this is not a new finding. She denies any palpitations, shortness of breath, fever or chills, diaphoresis, nausea or vomiting. At the time of evaluation the patient has no cardia pulmonary distress. She her blood pressure is in the 170 systolic. She appears to be in a regular rhythm in the 7080s on monitor. Allergies Allergy/AdvReac Type Severity Reaction Status Date / Time Sulfa (Sulfonamide Allergy Severe HIVES Verified 06/03/19 14:36 Antibiotics) amoxicillin Allergy Unknown hives Verified 06/03/19 14:36 clavulanic acid Allergy Unknown hives Verified 06/03/19 14:36 ketorolac Allergy Unknown 'increased Verified 06/03/19 14:36 bleeding' meperidine Allergy Unknown HIVES Verified 06/03/19 14:36 mivacurium Allergy Unknown hives Verified 06/03/19 14:36 Penicillins Allergy Unknown hives Verified 06/03/19 14:36 azithromycin Allergy Unknown Verified 06/03/19 14:36 [From Zithromax Z-Siddhartha] dexamethasone AdvReac Severe Shortness Verified 06/03/19 14:36 of Breath, throat constriction codeine AdvReac Unknown NAUSEA AND Verified 06/03/19 14:36 VOMITING Home Medications Home Medications Medication Instructions Recorded Confirmed Type calcium carbonate 600 mg (1,500 1 tab PO DAILY #30 tab 12/30/18 06/03/19 Rx mg)-vitamin D3 400 unit tablet cholecalciferol (vitamin D3) 25 1,000 units PO DAILY #90 tab 12/30/18 06/03/19 Rx mcg (1,000 unit) tablet cinnamon bark 500 mg capsule 1,000 mg PO DAILY #180 cap 12/30/18 06/03/19 Rx clopidogrel 75 mg tablet 75 mg PO DAILY #90 tab 12/30/18 06/03/19 Rx metoprolol tartrate 25 mg tablet 25 mg PO BID #180 tab 12/30/18 06/03/19 Rx omega-3 acid ethyl esters 1 gram 1 cap PO DAILY #90 cap 12/30/18 06/03/19 Rx capsule cyanocobalamin (vitamin B-12) 1,000 mcg PO DAILY #30 cap 01/02/19 06/03/19 Rx 1,000 mcg capsule ondansetron HCl 4 mg tablet 4 mg PO QID PRN 01/02/19 06/03/19 History acetaminophen 500 mg tablet 1,000 mg PO BID PRN tab 06/03/19 06/03/19 History furosemide 20 mg tablet 20 mg PO DAILY PRN tab 06/03/19 06/03/19 History Past Med/Surg History Medical History Acid reflux disease (Chronic) Adenomatous polyp of colon (Chronic) Atrial tachycardia (Chronic) Dyslipidemia (Chronic) History of breast cancer (Chronic) History of stroke (Chronic) Hypertension (Chronic) Lumbar stenosis with neurogenic claudication (Resolved) Lymphoma (Chronic) Memory difficulty (Chronic) Nephrolithiasis (Chronic) Rosacea (Chronic) Spinal stenosis (Chronic) Stage 3 chronic kidney disease (Chronic) Vitamin D deficiency (Chronic) Surgical History H/O colonoscopy H/O dilation and curettage H/O: hysterectomy History of back surgery History of bladder surgery History of lobectomy of lung History of mastectomy S/P cholecystectomy Family History Mother Coronary heart disease Cancer Father Coronary heart disease Cancer Myocardial infarction Aunt Cancer Other Atrial fibrillation Stroke Social History Preferred Language: Citizen Of [place] Communication Ability: Effective Assistant 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: No Beliefs That Will Affect Care: None Current Living Situation: Alone Other Information That Helps Us Care for You: No Feels Safe at Home: Yes Safety Concerns: Feels Safe At This Time Smoking Status: Never smoker Hx Alcohol Use: No Hx Substance Use: No Review of Systems Constitutional: + body aches and + fatigue; no chills, no sweats, no weight loss, no weight gain and no daytime sleepiness Eyes: no problem reported Ear, Nose, Mouth, Throat: no hearing loss, no nasal congestion, no epistaxis and no dry mouth Respiratory: no cough, no chest congestion, no dyspnea, no dyspnea on exertion, no hemoptysis, no pain on inspiration and no wheezing Cardiovascular: + radiating jaw, neck or arm pain; no chest pain, no chest pa in at rest, no dyspnea, no dyspnea at rest, no palpitations, no lightheadedness and no syncope Gastrointestinal: no abdominal pain, no nausea, no vomiting, no constipation and no melena Genitourinary: no urinary frequency, no urinary incontinence and no decreased urination Musculoskeletal: + radicular pain and + stiffness; no back pain, no loss of height and no swelling Integumentary: no problem reported Neurologic: + loss of sensation, + numbness and + paresthesia 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 MMM. No carotid bruits Heart: Irregularly irregular, no murmurs. No rubs or gallops. Patient has a port in the left upper chest wall which has been accessed and dressed. Lungs: clear to auscultation in all powell without wheeze or rhonchi Abd: soft, nontender, nondistended. Normal BS Neuro: awake, alert. Nonfocal MS: No tenderness to palpation in her entire left upper extremity or cervical area. Patient has good radial and ulnar pulses. Extremities warm. Psych: appropriate mood and affect Ext: No clubbing, cyanosis, edema Results & Data Vital Signs (Past 12 Hours) Vital Signs Temp Pulse Resp BP Pulse Ox 06/03/19 14:30 79 20 95 06/03/19 14:19 71 19 170/65 H 95 06/03/19 14:18 71 98 06/03/19 13:30 66 17 06/03/19 13:00 72 18 06/03/19 12:35 77 18 183/103 H 06/03/19 12:30 86 18 06/03/19 12:26 81 23 06/03/19 11:53 36.7 C 74 20 174/81 H 99 EKG from PCP office reviewed, appears to be atrial fibrillation with a rate of 6 4 bpm. There [address] no [address]-T wave changes. There is good R wave progression. Diagnostic Findings SINGLE VIEW CHEST CLINICAL HISTORY: Atypical chest pain. FINDINGS: An AP, portable, upright chest radiograph is compared to study dated 05/28/2018. Correlation is made with chest CT dated 12/24/2017. The examination is degraded by portable technique and patient rotation. A left subclavian central venous infusion port is unchanged in position. The heart is enlarged noting atherosclerotic calcification of the thoracic aorta. The pulmonary vasculature is noncongested. There is mild elevation of left hemidiaphragm. Chronic interstitial thickening is similar to previous. Probable scarring, postoperative change, and volume loss in the left lung is unchanged. No airspace consolidation or large pleural effusion is identified. No pneumothorax is seen. The skeletal structures are osteopenic. Degenerative changes noted in the thoracic spine. Fusion hardware is seen at the thoracolumbar junction. Surgical clips are noted in the right axilla. IMPRESSION: Cardiomegaly and chronic changes as above. No acute cardiopulmonary abnormality is identified. --- ULTRASOUND LEFT UPPER EXTREMITY VENOUS CLINICAL HISTORY: Left arm pain. COMPARISON STUDY: No priors. TECHNIQUE: Real-time, grayscale, and color Doppler sonography of the deep veins of the left upper extremity is performed. Compression and augmentation were utilized. FINDINGS: There is no sonographic evidence of deep venous thrombosis identified in the left upper extremity. Portions of the left subclavian vein and the axillary vein are not well visualized due to imaging over the port. The left internal jugular, axillary, and brachial veins are patent and normally compressible. Normal venous waveforms and augmentation are seen within the left subclavian vein. The cephalic and basilic veins are clear. The visualized radial and ulnar veins are patent. IMPRESSION: There is no sonographic evidence of deep venous thrombosis identified in the left upper extremity. PG Care Time/CCT Total # of Minutes Spent Total Time Spent with Patient: Total time spent is greater than 50% in coordination of care (as documented) at patient's floor/unit and/or counseling patient:
--- NOTE | 2019-06-03 16:48 | Emergency Department Note ---
Entered by Shannan Oconnor acting as a scribe for Milton Bejarano DO History of Present Illness General Chief complaint: Arrhythmia/Palpitations Stated complaint: AFIB,LEFT ARM PAIN, HYPERTENSION,CHEST PAIN,SOB Source: patient Mode of arrival: ambulatory Limitations: no limitations History of Present Illness Provider complaint: Chest pain Onset (ago): month(s) 6 Location: chest Pain Consistency: + other (worsening) Maximum Pain Intensity: 3 Quality: + other (pain) Relieved By: + none Associated symptoms: + cough (chronic), + shortness of breath and + other (Additional symptoms: chest heaviness, dull ache in left arm, chronic diarrhea. Denies: numbness); no nausea/vomiting and no weakness The patient is a 78 year old female with a history of Non-Hodgkins lymphoma, hypertension, atrial fibrillation, and a CVA who presents to the Emergency Room with complaints of worsening chest pain starting 6 months ago. The patient reports that her chest pain is exacerbated by exertion and is accompanied by shortness of breath and chest heaviness. She states that her symptoms have worsened to the point where she has to stop at the top of the flight of 5-6 stairs in her house because she becomes so winded. She also complains of a dull constant ache in her left arm, chronic diarrhea, and a chronic cough, but she denies any weakness, numbness, nausea, and vomiting. The patient reports that she had her port flushed yesterday and that she follows with Dr. Russo for oncology. She mentions that her PCP is with [facility] in [place]. She denies a history of MIs. She notes that she takes Metoprolol and Plavix daily, as well as Furosemide as needed, and she adds that she has been taking Tylenol for her symptoms with no relief. Home Medications Home Medications Medication Instructions Recorded Confirmed Type calcium carbonate 600 mg (1,500 1 tab PO DAILY #30 tab 12/30/18 06/03/19 Rx mg)-vitamin D3 400 unit tablet cholecalciferol (vitamin D3) 25 1,000 units PO DAILY #90 tab 12/30/18 06/03/19 Rx mcg (1,000 unit) tablet cinnamon bark 500 mg capsule 1,000 mg PO DAILY #180 cap 12/30/18 06/03/19 Rx clopidogrel 75 mg tablet 75 mg PO DAILY #90 tab 12/30/18 06/03/19 Rx metoprolol tartrate 25 mg tablet 25 mg PO BID #180 tab 12/30/18 06/03/19 Rx omega-3 acid ethyl esters 1 gram 1 cap PO DAILY #90 cap 12/30/18 06/03/19 Rx capsule cyanocobalamin (vitamin B-12) 1,000 mcg PO DAILY #30 cap 01/02/19 06/03/19 Rx 1,000 mcg capsule ondansetron HCl 4 mg tablet 4 mg PO QID PRN 01/02/19 06/03/19 History acetaminophen 500 mg tablet 1,000 mg PO BID PRN tab 06/03/19 06/03/19 History furosemide 20 mg tablet 20 mg PO DAILY PRN tab 06/03/19 06/03/19 History Allergies Allergy/AdvReac Type Severity Reaction Status Date / Time Sulfa (Sulfonamide Allergy Severe HIVES Verified 06/03/19 14:36 Antibiotics) amoxicillin Allergy Unknown hives Verified 06/03/19 14:36 clavulanic acid Allergy Unknown hives Verified 06/03/19 14:36 ketorolac Allergy Unknown 'increased Verified 06/03/19 14:36 bleeding' meperidine Allergy Unknown HIVES Verified 06/03/19 14:36 mivacurium Allergy Unknown hives Verified 06/03/19 14:36 Penicillins Allergy Unknown hives Verified 06/03/19 14:36 azithromycin Allergy Unknown Verified 06/03/19 14:36 [From Zithromax Z-Siddhartha] dexamethasone AdvReac Severe Shortness Verified 06/03/19 14:36 of Breath, throat constriction codeine AdvReac Unknown NAUSEA AND Verified 06/03/19 14:36 VOMITING Past Med/Surg History Medical History Acid reflux disease (Chronic) Adenomatous polyp of colon (Chronic) Atrial tachycardia (Chronic) Dyslipidemia (Chronic) History of breast cancer (Chronic) History of stroke (Chronic) Hypertension (Chronic) Lumbar stenosis with neurogenic claudication (Resolved) Lymphoma (Chronic) Memory difficulty (Chronic) Nephrolithiasis (Chronic) Rosacea (Chronic) Spinal stenosis (Chronic) Stage 3 chronic kidney disease (Chronic) Vitamin D deficiency (Chronic) Surgical History H/O colonoscopy H/O dilation and curettage H/O: hysterectomy History of back surgery History of bladder surgery History of lobectomy of lung History of mastectomy S/P cholecystectomy Family History Mother Coronary heart disease Cancer Father Coronary heart disease Cancer Myocardial infarction Aunt Cancer Other Atrial fibrillation Stroke Social History Preferred Language: Ukrainian Communication Ability: Effective Answering Service Telephone Operator Required: No Beliefs That Will Affect Care: None Current Living Situation: Alone Other Information That Helps Us Care for You: No Feels Safe at Home: Yes Safety Concerns: Feels Safe At This Time Smoking Status: Never smoker Hx Alcohol Use: No Hx Substance Use: No Review of Systems See HPI for pertinent positives & negatives. and A total of 10 systems reviewed and were otherwise negative Physical Exam Vital Signs Vital Signs - 24 hr 06/03/19 11:53 06/03/19 12:26 06/03/19 12:30 Temperature 36.7 C Temperature Source Oral Pulse Rate 74 81 86 Pulse Rate from SpO2 Sensor Respiratory Rate 20 23 18 Blood Pressure 174/81 H Blood Pressure Mean 112 Blood Pressure Position Sitting Pulse Oximetry 99 Oxygen Delivery Method Room Air Sepsis Recent Fever Within 48 Hours No Sepsis Action Taken by Nursing No Action Required 06/03/19 12:35 06/03/19 12:43 06/03/19 13:00 Temperature Temperature Source Pulse Rate 77 72 Pulse Rate from SpO2 Sensor Respiratory Rate 18 18 Blood Pressure 183/103 H Blood Pressure Mean 141 Blood Pressure Position Pulse Oximetry Oxygen Delivery Method Room Air Sepsis Recent Fever Within 48 Hours Sepsis Action Taken by Nursing 06/03/19 13:30 06/03/19 14:18 06/03/19 14:19 Temperature Temperature Source Pulse Rate 66 71 71 Pulse Rate from SpO2 Sensor 70 70 Respiratory Rate 17 19 Blood Pressure 170/65 H Blood Pressure Mean 100 Blood Pressure Position Pulse Oximetry 98 95 Oxygen Delivery Method Sepsis Recent Fever Within 48 Hours Sepsis Action Taken by Nursing 06/03/19 14:30 Temperature Temperature Source Pulse Rate 79 Pulse Rate from SpO2 Sensor 81 Respiratory Rate 20 Blood Pressure Blood Pressure Mean Blood Pressure Position Pulse Oximetry 95 Oxygen Delivery Method Sepsis Recent Fever Within 48 Hours Sepsis Action Taken by Nursing GENERAL: Sitting up in bed, disheveled, non-toxic EYE EXAM: normal conjunctiva OROPHARYNX: no exudate, no erythema, lips, buccal mucosa, and tongue normal and mucous membranes are moist NECK: supple, no nuchal rigidity, no adenopathy, non-tender LUNGS: Clear to auscultation. Normal chest wall mechanics HEART: no murmurs, S1 normal and S2 normal ABDOMEN: abdomen soft, non-tender, normo-active bowel sounds, no masses, no rebound or guarding. BACK: Back is symmetrical on inspection and there is no deformity, no midline tenderness, no CVA tenderness. SKIN: no rashes and no bruising UPPER EXTREMITIES: upper extremities are grossly normal. LOWER EXTREMITIES: No pitting edema. Calves equal bilaterally. NEURO EXAM: Normal sensorium, cranial nerves II-XII grossly intact, normal speech, no gross weakness of arms, no gross weakness of legs. Gross sensation intact. Course Course ED COURSE: Vital signs were reviewed and showed situational hypertension. The patients medical record was reviewed The above diagnostic studies were performed and reviewed. ED treatments and interventions as stated above. 1204: The patient was evaluated in room A10. A complete history and physical examination was performed. 1455: I reviewed the patient's case with Dr. Thaddeus Bianchi, [facility]. Dr. Travis will evaluate the patient for further management. Based on the patients age, coexisting illnesses, exam and lab findings the decision to treat as an inpatient was made. The patient remained stable while under my care. The patient will be evaluated for further management. Consultations Consultation #1: I reviewed the patient's case with Dr. Thaddeus Bianchi, [facility] Castillo. Dr. Travis will evaluate the patient for further management. Time: 14:55 Administered Medications Discontinued Medications Aspirin (Aspirin) 324 mg PO NOW STA Stop: 06/03/19 12:10 Last Admin: 06/03/19 12:49 Dose: 324 mg Documented by: [id number] Medical Decision Making Differential Diagnosis Differential diagnosis includes: cardiac ischemia, aortic dissection, pulmonary embolism, pneumonia, pneumothorax, musculoskeletal, infections, pericarditis, myocarditis, esophageal rupture, gastrointestinal, as well as others were entertained. Medical Records Attestation: I reviewed the patient's medical records. Home Medications Current Medication List: was personally reviewed by me Laboratory Data Attestation: I reviewed the patient's lab results. Result diagrams: 06/03/19 12:34 06/03/19 12:34 Lab Results 12/04/19 12/04/19 Range/Units 12:34 12:34 WBC 5.36 (4.8-10.8) K/uL RBC 3.59 L (4.2-5.4) M/uL Hgb 12.0 (12.0-16.0) g/dL Hct 35.7 L (37-47) % MCV 99.4 (80-100) fL MCH 33.4 (25-34) pg MCHC 33.6 (32-36) g/dL RDW Std Deviation 52.1 H (36.4-46.3) fL RDW Coeff of Zackary 14.5 (11.5-14.5) % Plt Count 153 (130-400) K/uL MPV 9.4 (7.4-10.4) fL Immature Gran % (Auto) 0.0 % Neut % (Auto) 58.9 % Lymph % (Auto) 27.8 % [place] % (Auto) 10.3 % Eos % (Auto) 2.4 % Baso % (Auto) 0.6 % Immature Gran # (Auto) 0.00 (0.00-0.02) K/uL Neut # (Auto) 3.16 (1.4-6.5) K/uL Lymph # (Auto) 1.49 (1.2-3.4) K/uL [place] # (Auto) 0.55 (0.11-0.59) K/uL Eos # (Auto) 0.13 (0-0.5) K/uL Baso # (Auto) 0.03 (0-0.2) K/uL Sodium 138 (136-145) mmol/L Potassium 4.1 (3.5-5.1) mmol/L Chloride 108 H (98-107) mmol/L Carbon Dioxide 24 (21-32) mmol/L Anion Gap 6.0 (3-11) BUN 15 (7-18) mg/dl Creatinine 1.15 (0.6-1.2) mg/dl Est Cr Clr Drug Dosing 43.1 ml/min Est GFR ( Amer) 52.4 Est GFR (Non-Af Amer) 45.2 BUN/Creatinine Ratio 12.9 (10-20) Glucose 108 H (70-99) mg/dl Calcium 9.5 (8.5-10.1) mg/dl Total Bilirubin 0.7 (0.2-1) mg/dl AST 26 (15-37) U/L ALT 23 (12-78) U/L Alkaline Phosphatase 116 (45-117) U/L Troponin I < 0.015 (0-0.045) ng/ml Total Protein 7.2 (6.4-8.2) gm/dl Albumin 3.8 (3.4-5.0) gm/dl Globulin 3.4 (2.5-4.0) gm/dl Albumin/Globulin Ratio 1.1 (0.9-2) Lipase 154 (73-393) U/L Imaging Data Radiologist's Impression: Radiology results as stated below per my review and the radiologist's interpretation: SINGLE VIEW CHEST CLINICAL HISTORY: Atypical chest pain. FINDINGS: An AP, portable, upright chest radiograph is compared to study dated 05/28/2018. Correlation is made with chest CT dated 12/24/2017. The examination is degraded by portable technique and patient rotation. A left subclavian central venous infusion port is unchanged in position. The heart is enlarged noting atherosclerotic calcification of the thoracic aorta. The pulmonary vasculature is noncongested. There is mild elevation of left hemidiaphragm. Chronic interstitial thickening is similar to previous. Probable scarring, postoperative change, and volume loss in the left lung is unchanged. No airspace consolidation or large pleural effusion is identified. No pneumothorax is seen. The skeletal structures are osteopenic. Degenerative changes noted in the thoracic spine. Fusion hardware is seen at the thoracolumbar junction. Surgical clips are noted in the right axilla. IMPRESSION: Cardiomegaly and chronic changes as above. No acute cardiopulmonary abnormality is identified. Electronically signed by: Gallito Escalera M.D. 06/03/2019 12:50 PM ULTRASOUND LEFT UPPER EXTREMITY VENOUS CLINICAL HISTORY: Left arm pain. COMPARISON STUDY: No priors. TECHNIQUE: Real-time, grayscale, and color Doppler sonography of the deep veins of the left upper extremity is performed. Compression and augmentation were utilized. FINDINGS: There is no sonographic evidence of deep venous thrombosis identified in the left upper extremity. Portions of the left subclavian vein and the axillary vein are not well visualized due to imaging over the port. The left internal jugular, axillary, and brachial veins are patent and normally compressible. Normal venous waveforms and augmentation are seen within the left subclavian vein. The cephalic and basilic veins are clear. The visualized radial and ulnar veins are patent. IMPRESSION: There is no sonographic evidence of deep venous thrombosis identified in the left upper extremity. Electronically signed by: Gallito Escalera M.D. 06/03/2019 2:12 PM ECG Data Attestation: I personally reviewed and interpreted this ECG as follows: Indication: + chest pain Rate (beats per minute): 62 Rhythm: + atrial fibrillation ECG [place]: + Normal ECG ST segments: + T-wave inversions (septal leads, lead III) ECG Findings: + Q waves (septal); no PVCs Comparison ECG Date: from (05/28/18) Change: the following changes noted (Atrial fibrillation is new. TWI in lead III is new. TWI in septal leads is only in V2) Blood Pressure Blood Pressure Findings: Normal blood pressure Blood Pressure Disposition: further management by hospitalist LESLIE Burt Patient is a 78-year-old female who presents the ER for 2 weeks worth of worsening left arm pain associate with chest pain and shortness of breath which are worsening with exertion. Arm pain is always there and constant. Patient was hypertensive with systolic pressures in the 170s. Patient was sent in by her PCP. IV was established blood work was obtained and showed no significant leukocytosis or anemia. BMP along with LFTs bilirubin and troponin was unremarkable. Lipase was normal. Chest x-ray without any focal infiltrate. Patient was given aspirin. Duplex of the left upper extremity was negative. Do find concerning his exertional symptoms as she can only now walk up about 5 steps prior to getting them. Do favor that she likely needs cardiac work-up. She is in A. fib which she does have a history of but she is normally in sinus rhythm. Question if it is truly the A. fib versus ischemia. Impression & Plan Exertional chest pain, Atrial fibrillation, Dyspnea on exertion, Abnormal EKG Discharge Plan Visit Data *Final* Discharge Date/Time: 06/03/19 16:25 Chief Complaint: Arrhythmia/Palpitations Stated Complaint: AFIB,LEFT ARM PAIN, HYPERTENSION,CHEST PAIN,SOB ED Provider: Milton Bejarano Discharge Problem: Exertional chest pain, Atrial fibrillation, Dyspnea on exertion, Abnormal EKG Patient Disposition: Admitted As Inpatient Discharge Instructions Interventions: ED Discharge Assessment Last Done: 06/03/19 16:25 Discharge Problem: Atrial fibrillation Qualifiers: Atrial fibrillation type: unspecified Qualified Code(s): I48.91 - Unspecified atrial fibrillation The scribe's documentation has been prepared under my direction and personally reviewed by me in its entirety. I confirm that the note above accurately reflects all work, treatment, procedures, and medical decision making performed by me.
[2019-06-03] MEDS ORDERED: ONDANSETRON 4 MG TAB PO PRN (16:59)
[2019-06-03] MEDS ORDERED: ACETAMINOPHEN 500 MG TAB PO PRN (16:59)
[2019-06-03] MEDS ORDERED: FUROSEMIDE 20 MG TAB PO PRN (16:59)
[2019-06-03 18:13] LABS: Lipase 144 U/L (73-393); Troponin I < 0.015 ng/ml (0-0.045)
[2019-06-03] MEDS: METOPROLOL TARTRATE 25 MG TAB PO SCH (19:54)
[2019-06-03] MEDS: APIXABAN 5 MG TABLET PO SCH (19:55)
[2019-06-04 07:06] LABS: Basophils # (auto) 0.03 K/uL (0-0.2); Basophils % (auto) 0.6 %; Eosinophils # (auto) 0.14 K/uL (0-0.5); Eosinophils % (auto) 2.7 %; Hematocrit (blood only) 35.4 % (37-47); Hemoglobin 11.8 g/dL (12.0-16.0); Immature Granulocytes # (auto) 0.01 K/uL (0.00-0.02); Immature Granulocytes % (auto) 0.2 %; Lymphocytes # (auto) 1.59 K/uL (1.2-3.4); Lymphocytes % (auto) 30.3 %; Mean Corpuscular Hemoglobin 33.3 pg (25-34); Mean Corpuscular Hgb Conc 33.3 g/dL (32-36); Mean Platelet Volume 9.6 fL (7.4-10.4); Monocytes # (auto) 0.58 K/uL (0.11-0.59); Neutrophils % (auto) 55.2 %; Platelet Count 145 K/uL (130-400); RDW Coefficient of Variation 14.4 % (11.5-14.5); RDW Standard Deviation 52.3 fL (36.4-46.3); Red Blood Count 3.54 M/uL (4.2-5.4); White Blood Count 5.25 K/uL (4.8-10.8)
[2019-06-04] MEDS ORDERED: PERFLUTREN LIPID MICROSPHERE (DEFINITY) IV ONE (07:16)
[2019-06-04 07:41] LABS: BUN Creatinine Ratio 12.7 (10-20); Calcium 9.2 mg/dl (8.5-10.1); Creatinine Clr Calc Pharmacy 41.5 ml/min; Est GFR (African American) 50.8; Est GFR (Non-African American) 43.8; Potassium 4.3 mmol/L (3.5-5.1)
[2019-06-04 07:51] LABS: Thyroid Stimulating Hormone 1.6 uIu/ml (0.300-4.500)
[2019-06-04] MEDS ORDERED: CINNAMON BARK 1000 MG PO SCH (09:00)
[2019-06-04] MEDS ORDERED: CHOLECALCIFEROL 1,000 UNITS TAB PO SCH (09:00)
[2019-06-04] MEDS ORDERED: CLOPIDOGREL BISULFATE 75 MG TAB PO SCH (09:00)
[2019-06-04] MEDS ORDERED: CYANOCOBALAMIN 500 MCG TABLET (VITAMIN B-12) PO SCH (09:00)
[2019-06-04] MEDS ORDERED: CALCIUM 600MG + VIT D 400 IU TAB PO SCH (09:00)
[2019-06-04] MEDS ORDERED: OMEGA-3 (PURIFIED FISH OIL) 1 GM CAP PO SCH (09:00)
[2019-06-04] MEDS: APIXABAN 5 MG TABLET PO SCH (09:17)
[2019-06-04] MEDS: METOPROLOL TARTRATE 25 MG TAB PO SCH (09:17)
--- NOTE | 2019-06-04 10:33 | Cardiology Consultation ---
Date of Consultation June 04, 2019 Assessment & Plan (1) Dyspnea on exertion: Her symptoms are fairly chronic in nature. There may have been some worsening recently. She describes similar symptoms as far back as 2013 in her record. Her overall LV systolic function appears to be normal. There is a slight possibility this represents some form coronary insufficiency. However, given the relative stability of the symptoms in the absence of any evidence for acute coronary syndrome I think outpatient stress testing would be a reasonable option for her. She has had a nuclear perfusion study in the past and this seems most appropriate to repeat given her current arrhythmia. (2) Atrial fibrillation: No symptoms. Adequate rate control. The duration of her atrial fibrillation is unknown. She did have a history of atrial tachycardia and was evaluated for possible atrial fibrillation several years ago. Certainly intermittent atrial arrhythmias that nature can preceding atrial fibrillation. I do not believe his any pressing need for treatment or return to sinus rhythm. She has been started on Eliquis and can certainly stop her Plavix as a result. (3) Chronic pain of left upper extremity: Despite 2 weeks worth of near constant left arm discomfort there has been no evidence of ischemia. Do not believe this is related to cardiac disease or symptoms of cardiac disease. Curiously, her lymphoma was on that side and apparently involved the left axilla. Did not reveal any evidence of venous occlusion to account for her symptoms. History of Present Illness Reason for Consultation: Atrial fibrillation Requesting Physician: Anoop Attending Physician: Deisy Davalos MD History of Present Illness Patient is a 78-year-old woman without a significant cardiac history who presented to her primary care physician's office yesterday for evaluation of left arm pain. The patient was discovered to have atrial fibrillation and based on her symptoms, new arrhythmia and history of dyspnea she was sent to the emergency room for evaluation. Patient states she has been having left arm discomfort for approximately 2 weeks. This discomfort has been constant in nature. It does wax and wane in severity may be slightly worse when lying on her left side. He has the blood pressure cuff here in the hospital has also exacerbated this symptom. Does not appear to be worse with activity or exertion. There has not been any significant period of relief even with Tylenol over the past 2 weeks. Patient also describes symptoms dyspnea. She states she has dyspnea primarily while at ascending stairs or when walking some distance. This is been common for the past 8 months to year. It is unclear whether the symptoms have been worse. She does not describe orthopnea or paroxysmal nocturnal dyspnea. She did report a chest heaviness. This tends to occur at nighttime when she is lying down. It is also been present for about 2 weeks. It is not exertional and not made worse with activity. She does not experience symptoms during the day when she is active. Allergies Allergy/AdvReac Type Severity Reaction Status Date / Time Sulfa (Sulfonamide Allergy Severe HIVES Verified 06/03/19 14:36 Antibiotics) amoxicillin Allergy Unknown hives Verified 06/03/19 14:36 clavulanic acid Allergy Unknown hives Verified 06/03/19 14:36 ketorolac Allergy Unknown 'increased Verified 06/03/19 14:36 bleeding' meperidine Allergy Unknown HIVES Verified 06/03/19 14:36 mivacurium Allergy Unknown hives Verified 06/03/19 14:36 Penicillins Allergy Unknown hives Verified 06/03/19 14:36 azithromycin Allergy Unknown Verified 06/03/19 14:36 [From Zithromax Z-Siddhartha] dexamethasone AdvReac Severe Shortness Verified 06/03/19 14:36 of Breath, throat constriction codeine AdvReac Unknown NAUSEA AND Verified 06/03/19 14:36 VOMITING Home Medications Home Medications Medication Instructions Recorded Confirmed Type calcium carbonate 600 mg (1,500 1 tab PO DAILY #30 tab 12/30/18 06/03/19 Rx mg)-vitamin D3 400 unit tablet cholecalciferol (vitamin D3) 25 1,000 units PO DAILY #90 tab 12/30/18 06/03/19 Rx mcg (1,000 unit) tablet cinnamon bark 500 mg capsule 1,000 mg PO DAILY #180 cap 12/30/18 06/03/19 Rx clopidogrel 75 mg tablet 75 mg PO DAILY #90 tab 12/30/18 06/03/19 Rx metoprolol tartrate 25 mg tablet 25 mg PO BID #180 tab 12/30/18 06/03/19 Rx omega-3 acid ethyl esters 1 gram 1 cap PO DAILY #90 cap 12/30/18 06/03/19 Rx capsule cyanocobalamin (vitamin B-12) 1,000 mcg PO DAILY #30 cap 01/02/19 06/03/19 Rx 1,000 mcg capsule ondansetron HCl 4 mg tablet 4 mg PO QID PRN 01/02/19 06/03/19 History acetaminophen 500 mg tablet 1,000 mg PO BID PRN tab 06/03/19 06/03/19 History furosemide 20 mg tablet 20 mg PO DAILY PRN tab 06/03/19 06/03/19 History Patient History Medical History Acid reflux disease (Chronic) Adenomatous polyp of colon (Chronic) Atrial tachycardia (Chronic) Dyslipidemia (Chronic) History of breast cancer (Chronic) History of stroke (Chronic) Hypertension (Chronic) Lumbar stenosis with neurogenic claudication (Resolved) Lymphoma (Chronic) Memory difficulty (Chronic) Nephrolithiasis (Chronic) Rosacea (Chronic) Spinal stenosis (Chronic) Stage 3 chronic kidney disease (Chronic) Vitamin D deficiency (Chronic) Surgical History H/O colonoscopy H/O dilation and curettage H/O: hysterectomy History of back surgery History of bladder surgery History of lobectomy of lung History of mastectomy S/P cholecystectomy Family History Mother Coronary heart disease Cancer Father Coronary heart disease Cancer Myocardial infarction Aunt Cancer Other Atrial fibrillation Stroke Social History Preferred Language: Faroese Communication Ability: Effective Yarn Tester Required: No Beliefs That Will Affect Care: None Current Living Situation: Alone Other Information That Helps Us Care for You: No Feels Safe at Home: Yes Safety Concerns: Feels Safe At This Time Smoking Status: Never smoker Hx Alcohol Use: No Hx Substance Use: No Review of Systems Review of Systems: All systems reviewed & are unremarkable except as noted in HPI & below She denies any recent injury to the left arm. She cannot recall any similar symptoms in the past. She denies any sense of palpitations currently but has had palpitations in the past. She denies dizziness or lightheadedness at this time. She does not have a history of syncope. She has not noticed any swelling in her lower extremities. 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 Physical Exam Physical Exam: She is alert and oriented x3. Mood affect appear normal. She answered all questions appropriately. HEENT: Sclerae are anicteric. Pupils are equal and reactive to light and accommodation. Extraocular movements were intact. Neuro: Cranial nerves intact Neck: Examination of the submandibular region did not reveal any significant lymphadenopathy. Carotids are palpable bilaterally and free of bruits on auscultation. There was no evidence of jugular venous distention. The thyroid was not enlarged. Linear scar noted on the left anterior portion of the neck. Lungs: Lungs are clear to auscultation bilaterally. There are no rales wheezes or rhonchi. She has normal respiratory effort without use of accessory muscles. There is normal pulmonary excursion. Chest: Venous port noted in the left upper chest area. Cardiac: The rhythm was irregular. S1 and S2 were normal. There are no murmurs on examination. The PMI was not markedly displaced on palpation. Abdomen: The abdomen was soft and nontender. Extremities: Patient has bilateral radial pulses that are equal in intensity. There is no evidence cyanosis or clubbing. There was no evidence of significant peripheral edema bilaterally. Skin: There are no rashes noted on examination today. Results & Data Vital Signs (Past 12 Hours) Vital Signs Temp Pulse Pulse Resp BP Pulse Ox 06/04/19 09:15 81 128/72 06/04/19 08:54 81 06/04/19 08:08 36.5 C 114 H 18 91/66 L 94 06/04/19 03:11 36.5 C 75 19 136/72 94 06/04/19 00:23 68 06/03/19 23:06 36.6 C 77 18 155/76 H 94 Laboratory Results Abnormal Lab Results 06/03/19 06/03/19 06/03/19 12:34 12:34 16:53 WBC 5.36 RBC 3.59 L Hgb 12.0 Hct 35.7 L MCV 99.4 MCH 33.4 MCHC 33.6 RDW Std Deviation 52.1 H RDW Coeff of Zackary 14.5 Plt Count 153 MPV 9.4 Immature Gran % (Auto) 0.0 Neut % (Auto) 58.9 Lymph % (Auto) 27.8 [place] % (Auto) 10.3 Eos % (Auto) 2.4 Baso % (Auto) 0.6 Immature Gran # (Auto) 0.00 Neut # (Auto) 3.16 Lymph # (Auto) 1.49 [place] # (Auto) 0.55 Eos # (Auto) 0.13 Baso # (Auto) 0.03 Sodium 138 Potassium 4.1 Chloride 108 H Carbon Dioxide 24 Anion Gap 6.0 BUN 15 Creatinine 1.15 Est Cr Clr Drug Dosing 43.1 Est GFR ( Amer) 52.4 Est GFR (Non-Af Amer) 45.2 BUN/Creatinine Ratio 12.9 Glucose 108 H Calcium 9.5 Total Bilirubin 0.7 AST 26 ALT 23 Alkaline Phosphatase 116 Troponin I < 0.015 < 0.015 Total Protein 7.2 Albumin 3.8 Globulin 3.4 Albumin/Globulin Ratio 1.1 Triglycerides Cholesterol LDL Cholesterol, Calc VLDL Cholesterol, Calc HDL Cholesterol Cholesterol/HDL Ratio Lipase 154 144 TSH 06/04/19 06/04/19 06/04/19 00:10 06:46 06:46 WBC 5.25 RBC 3.54 L Hgb 11.8 L Hct 35.4 L MCV 100.0 MCH 33.3 MCHC 33.3 RDW Std Deviation 52.3 H RDW Coeff of Zackary 14.4 Plt Count 145 MPV 9.6 Immature Gran % (Auto) 0.2 Neut % (Auto) 55.2 Lymph % (Auto) 30.3 [place] % (Auto) 11.0 Eos % (Auto) 2.7 Baso % (Auto) 0.6 Immature Gran # (Auto) 0.01 Neut # (Auto) 2.90 Lymph # (Auto) 1.59 [place] # (Auto) 0.58 Eos # (Auto) 0.14 Baso # (Auto) 0.03 Sodium 136 Potassium 4.3 Chloride 105 Carbon Dioxide 25 Anion Gap 6.0 BUN 15 Creatinine 1.18 Est Cr Clr Drug Dosing 41.5 Est GFR ( Amer) 50.8 Est GFR (Non-Af Amer) 43.8 BUN/Creatinine Ratio 12.7 Glucose 122 H Calcium 9.2 Total Bilirubin AST ALT Alkaline Phosphatase Troponin I < 0.015 Total Protein Albumin Globulin Albumin/Globulin Ratio Triglycerides 138 Cholesterol 138 LDL Cholesterol, Calc 65 VLDL Cholesterol, Calc 28 HDL Cholesterol 45 Cholesterol/HDL Ratio 3 Lipase TSH 1.600 06/04/19 06:46 WBC RBC Hgb Hct MCV MCH MCHC RDW Std Deviation RDW Coeff of Zackary Plt Count MPV Immature Gran % (Auto) Neut % (Auto) Lymph % (Auto) [place] % (Auto) Eos % (Auto) Baso % (Auto) Immature Gran # (Auto) Neut # (Auto) Lymph # (Auto) [place] # (Auto) Eos # (Auto) Baso # (Auto) Sodium Potassium Chloride Carbon Dioxide Anion Gap BUN Creatinine Est Cr Clr Drug Dosing Est GFR ( Amer) Est GFR (Non-Af Amer) BUN/Creatinine Ratio Glucose Calcium Total Bilirubin AST ALT Alkaline Phosphatase Troponin I < 0.015 Total Protein Albumin Globulin Albumin/Globulin Ratio Triglycerides Cholesterol LDL Cholesterol, Calc VLDL Cholesterol, Calc HDL Cholesterol Cholesterol/HDL Ratio Lipase TSH Diagnostic Findings Venous ultrasound the left upper extremity did not demonstrate any evidence of venous occlusion Chest x-ray demonstrated some calcification of thoracic aorta. No acute pulmonary process. ECG Additional Comments: EKG demonstrated atrial fibrillation and controlled ventricular response. Nonspecific ST and T-wave changes. PG Care Time/CCT Total # of Minutes Spent Total Time Spent with Patient: Total time spent is greater than 50% in coordination of care (as documented) at patient's floor/unit and/or counseling patient:
--- NOTE | 2019-06-04 12:57 | Discharge Summary ---
Date of Service June 04, 2019 Admission HPI Per Admitting Provider This is a 78-year-old female with past mental history medical history of non- Hodgkin's lymphoma, possible atrial fibrillation, previous breast cancer status post right mastectomy the presents today complaining of left upper extremity pain. Patient is a good historian is accompanied by her son. Patient tells me she is been experiencing discomfort in left upper extremity for the past 2 weeks. She tells me this is the whole arm. She notes that it is sore but not affected by movement. She does have a port in the left upper chest wall that she has had status post chemo for her NHL. She is currently not getting chemotherapy but the port is occasionally flushed. She mostly ignored the pain over the past 2 weeks but she presented to the cancer center yesterday for port to be flushed. She went to an her discomfort to she mentioned her discomfort to the person flushing the port and the suggestion was to see her primary care physician as soon as possible. Patient states that she went to her PCP today. At that time she had an EKG it was felt she was in atrial fibrillation was rate controlled. She is also found to be hypertensive with a blood pressure in the 190 systolic. She was told to present to the emergency room for further evaluation. At time my evaluation she is still complaining left upper extremity discomfort but notes that she typically has a lot of myalgia throughout her entire body and that this is not a new finding. She denies any palpitations, shortness of breath, fever or chills, diaphoresis, nausea or vomiting. At the time of evaluation the patient has no cardia pulmonary distress. She her blood pressure is in the 170 systolic. She appears to be in a regular rhythm in the 7080s on monitor. Principal Diagnosis New onset atrial fibrillation, left arm pain noncardiac Discharge Exam Constitutional WD/WN, vitals as above Eyes + anicteric sclerae Neck trachea midline, no thyromegaly Respiratory normal respiratory effort, lungs clear to auscultation Cardiovascular Rate/Rhythm: regular rate and + irregularly irregular Heart Sounds: no murmur Extremities: no edema Chest (Breasts) Chest: + vascular access device or port (left anterior chest wall port) Breast: no axillary mass (left axilla no masses) Gastrointestinal (Abdomen) normal bowel sounds, soft, nontender, no hepatosplenomegaly Musculoskeletal Extremities: extremities normal to inspection; no cyanosis and no clubbing Skin no rashes, warm and dry Neurologic moves all extremities and awake; + abnormal deep tendon reflexes (1+ and symmetric in biceps/triceps/brachirad/patellar) and no focal motor deficits (5/5 strength in UEs bilat throughout) Motor/Sensory: no tremor and no sensory deficit (upper ext intact to lt touch throughout) Psychiatric A+Ox3, euthymic affect Lymphatic no lymphedema Discharge Data Allergies Allergy/AdvReac Type Severity Reaction Status Date / Time Sulfa (Sulfonamide Allergy Severe HIVES Verified 06/03/19 14:36 Antibiotics) amoxicillin Allergy Unknown hives Verified 06/03/19 14:36 clavulanic acid Allergy Unknown hives Verified 06/03/19 14:36 ketorolac Allergy Unknown 'increased Verified 06/03/19 14:36 bleeding' meperidine Allergy Unknown HIVES Verified 06/03/19 14:36 mivacurium Allergy Unknown hives Verified 06/03/19 14:36 Penicillins Allergy Unknown hives Verified 06/03/19 14:36 azithromycin Allergy Unknown Verified 06/03/19 14:36 [From Zithromax Z-Siddhartha] dexamethasone AdvReac Severe Shortness Verified 06/03/19 14:36 of Breath, throat constriction codeine AdvReac Unknown NAUSEA AND Verified 06/03/19 14:36 VOMITING Consultations 06/03/19 14:39 ED Decision to Admit Stat 06/03/19 15:57 Consult Cardiology Routine Ordered Studies 06/03/19 12:09 US venous doppler UE LT Stat CXR ECHO Hospital Course (1) Chronic pain of left upper extremity: left arm dull ache x 2 weeks prior to admission Serial trop negative, no WMAs on ECHO Non cardiac Did have some mild right sided neck pain Neuro exam nonfocal so doubt significant cervical spine stenosis Seems to be improved now with improved control of BP No axillary mass on exam, Doppler LUE neg for DVT Likely MSK vs secondary to uncontrolled BP Seen by Cardio and given chronic MANE, plan for outpt Nuc Sterss-they will arrange after discharge (2) Atrial fibrillation: Per the monitor and outpatient EKG, it does appear that the patient has rate controlled atrial fibrillation. -continue on home Lopressor 25 mg twice daily -TSH normal at 1.6 Asymptomatic and unclear when it started Seen by Cardio here ECHO with left atrial enlargement contributing to Afib, no valvular disease, preserved EF Patient's [id number] score is 6 which places her at high risk for CVA, therefore started Eliquis 5 mg twice daily. HAS-BLED score is 5 which also places her at high risk for possible bleeding. -f/u with Cardiology as outpt (3) Hypertension: Patient is on Lopressor 25 mg twice daily along with furosemide 20 mg daily prn Given elevated BPs on admission, will add amlodipine 2.5 mg daily -f/u as outpt (4) Acid reflux disease: Continue outpatient medication as ordered. (5) Stage 3 chronic kidney disease: Monitor renal function Dispo-stable for dc to home Total Time Total Time Spent Total Time Spent (In Minutes): 35 min Total Time Includes: Examination of the Patient, Discharge Planning, Medication Reconciliation and Communication With Other Providers (Dr. Jamison) Discharge Plan Discharge Items Patient Disposition: Home - Self-Care Reason For Visit: LUE PAIN, N/O AF Discharge Diagnosis: Left arm pain, New onset atrial fibrillation Condition on Discharge: Good Health Concerns: You have been hospitalized for an acute medical problem. During your stay at [facility], we have made an effort to correct the problem that brought you to the hospital while keeping you as comfortable as possible. Medications were used to bring your condition under control and your discharge instructions will include directions for any medications you should take after leaving the hospital. Please make sure you see your Primary Care Provider as part of your follow up plan. Activity: Resume your previous activity Bathing: No limitations Non-emergency contact: Primary Care Provider and Assurance Associate Call non-emergency contact if: you have any medication questions, your symptoms worsen, your pain is not controlled, your pain is worsening, your pain is unusual for you and your pain is concerning for you Follow-up/Referrals: Ja Kiran MD [Physician] - 06/26/19 10:30 am (Please, follow up with [facility]urance Associate, Dr. Kiran, on SaturdayJune 26 at 10:30 am. *THIS APPOINTMENT WILL BE AT THE [place] [facility]ICE, THE SAME PLACE WHERE YOU SEE DR. MINER.* If you need to change this appointment, call the office at [phone].) Li Miner MD [Primary Care Provider] - 06/11/19 11:30 am (Please, follow up with Dr. Miner on June 11 at 11:30 am. *If you need to change this appointment, call the office at [phone].) Diet: Heart Healthy Add Attending Provider Instructions: You were admitted with left arm pain and new onset atrial fibrillation. You were started on a blood thinner called Eliquis to help prevent strokes that can happen as a result of atrial fibrillation. You can STOP your Plavix. Please follow up with the Assurance Associate as scheduled. They also will set you up for an outpatient cardiac stress test. Your blood pressure was very elevated and then improved with control of your blood pressure. You were started on a new blood pressure medication called amlodipine. Please take this once daily. Please follow up with your PCP as scheduled for you. If you develop evidence of bleeding from anywhere, have trauma or bleeding that cannot be stopped, or a headache especially if you fall and hit your head, please seek medical attention immediately. Pending Studies at Discharge: No Stand-Alone Forms: [facility] Medications and DC Order Prescriptions: New Eliquis 5 mg Tablet 5 mg PO BID Qty: 60 RF: 0 amlodipine 2.5 mg tablet 2.5 mg PO DAILY Qty: 30 RF: 0 Continued cyanocobalamin (vitamin B-12) 1,000 mcg capsule 1,000 mcg PO DAILY Qty: 30 RF: 0 calcium carbonate-vitamin D3 [Calcium with Vitamin D] 600 mg(1,500mg) -400 u nit tablet 1 tab PO DAILY Qty: 30 RF: 0 cinnamon bark 500 mg capsule 1,000 mg PO DAILY Qty: 180 RF: 3 omega-3 acid ethyl esters 1 gram capsule 1 cap PO DAILY Qty: 90 RF: 2 metoprolol tartrate 25 mg tablet 25 mg PO BID Qty: 180 RF: 3 cholecalciferol (vitamin D3) 1,000 unit tablet 1,000 units PO DAILY Qty: 90 RF: 3 ondansetron HCl [Zofran] 4 mg tablet 4 mg PO QID PRN (Reason: Nausea) RF: 0 acetaminophen 500 mg tablet 1,000 mg PO BID PRN (Reason: pain) RF: 0 furosemide 20 mg tablet 20 mg PO DAILY PRN (Reason: edema) RF: 0 Discontinued clopidogrel 75 mg tablet 75 mg PO DAILY Qty: 90 RF: 3 Discharge Orders: Discharge Order (Routine); Ordered 06/04/19 Ordered By: Deisy Davalos Admission Data Admit Date/Time: 06/03/19 15:57 Attending Provider: Deisy Davalos Admit Provider: Trenton Lomax Primary Care Provider: Li Miner Other Providers: Raquel Travis Alexander W. ; [place]
--- NOTE | 2019-06-08 10:46 | XCELERA ---
[id number] [id number]
== END 2019-06-04 14:30 | disposition home or self-care (01) ==
LOC: 2S 11:49 → ED 11:49 → SUATTDRO 15:57 → 2S 16:25

== ENCOUNTER 2019-07-31 09:56 | Observation (INO) ==
[2019-07-31] MEDS ORDERED: ACETAMINOPHEN 1,000 MG/100 ML VIAL IV STA (10:53)
[2019-07-31] MEDS ORDERED: ONDANSETRON INJ 2 MG/ML 2 ML VIAL IV STA (10:53)
[2019-07-31] MEDS ORDERED: SODIUM CHLORIDE 0.9% 1000ML 1,000 ML IV SCH (11:00)
[2019-07-31 11:41] LABS: Eosinophils # (auto) 0.01 K/uL (0-0.5); Eosinophils % (auto) 0.1 %; Hematocrit (blood only) 38.1 % (37-47); Hemoglobin 13.1 g/dL (12.0-16.0); Immature Granulocytes # (auto) 0.02 K/uL (0.00-0.02); Immature Granulocytes % (auto) 0.2 %; Lymphocytes # (auto) 0.51 K/uL (1.2-3.4); Lymphocytes % (auto) 6.3 %; Mean Corpuscular Hemoglobin 32.8 pg (25-34); Mean Corpuscular Hgb Conc 34.4 g/dL (32-36); Mean Corpuscular Volume 95.5 fL (80-100); Mean Platelet Volume 9.8 fL (7.4-10.4); Monocytes # (auto) 0.34 K/uL (0.11-0.59); Monocytes % (auto) 4.2 %; Neutrophils # (auto) 7.26 K/uL (1.4-6.5); Neutrophils % (auto) 89.2 %; Platelet Count 161 K/uL (130-400); RDW Coefficient of Variation 13.7 % (11.5-14.5); RDW Standard Deviation 47.8 fL (36.4-46.3); Red Blood Count 3.99 M/uL (4.2-5.4); White Blood Count 8.14 K/uL (4.8-10.8)
[2019-07-31 11:59] LABS: Alanine Aminotransferase 27 U/L (12-78); Albumin Level 3.7 gm/dl (3.4-5.0); Aspartate Aminotransferase 28 U/L (15-37); BUN Creatinine Ratio 16.4 (10-20); Blood Urea Nitrogen 20 mg/dl (7-18); Calcium 9.3 mg/dl (8.5-10.1); Carbon Dioxide 24 mmol/L (21-32); Chloride 105 mmol/L (98-107); Creatinine Clr Calc Pharmacy 40.6 ml/min; Est GFR (African American) 49.8; Glucose 143 mg/dl (70-99); Magnesium 1.6 mg/dl (1.8-2.4); Potassium 4.2 mmol/L (3.5-5.1); Sodium 136 mmol/L (136-145)
[2019-07-31 12:04] LABS: Alkaline Phosphatase 106 U/L (45-117); Bilirubin,Total 1.2 mg/dl (0.2-1); Globulin 3.6 gm/dl (2.5-4.0); Total Protein 7.3 gm/dl (6.4-8.2); Troponin I < 0.015 ng/ml (0-0.045)
--- NOTE | 2019-07-31 12:05 | CT Scan Report ---
ABDOMEN AND PELVIS CT WITHOUT CONTRAST CT DOSE: 938.98 mGycm HISTORY: flank pain. Lymphoma. Assess for hydronephrosis. TECHNIQUE: Multiaxial CT images of the abdomen and pelvis were performed without contrast. A dose lo wering technique was utilized adhering to the principles of ALARA. COMPARISON STUDY: Abdomen and pelvis CT 03/04/2019. FINDINGS: Small fat-containing right-sided Bochdalek hernia. Mild interstitial thickening at the lung bases. There is a tip of a central venous catheter at the distal SVC seen. This only partially image d on this study. The heart remains mildly enlarged. No pneumoperitoneum. No pneumatosis. Extensive po sterior decompression fusion within the lower thoracic line, lumbar spine, and sacrum with pedicle sc rews and rods. The left T12 pedicle screw partially extends into the central canal. This remains unch anged. No suspicious lytic or blastic osseous lesions. Tiny hiatus hernia. Tiny fat-containing left i nguinal hernia. The bladder is unremarkable. The uterus is surgically absent. No significant pelvic f ree fluid. Cholecystectomy. The unenhanced liver, spleen, adrenal glands, and kidneys are unremarkabl e. No hydronephrosis. Stable common bile duct dilatation. This is likely due to the patient's postcho lecystectomy state. Suboptimal evaluation for bowel pathology due to the lack of intravenous and oral contrast. However, there is no definite bowel wall thickening or obstruction. The appendix is not id entified and may be surgically absent. Colonic diverticulosis. No evidence for diverticulitis. Questi onable mild inflammatory change adjacent to the pancreatic head. IMPRESSION: 1. No hydronephrosis. 2. Questionable mild inflammatory change adjacent to the pancreatic head. Recommend correlation with pancreatic enzymes to exclude the possibility of acute pancreatitis. 3. No bowel wall thickening or obstruction. 4. Cholecystectomy. Stable common bile duct dilatation. 5. Additional findings as described above. ACT 112: Negative or not required by law. Electronically signed by: Braxton Capps M.D. 07/31/2019 12:03 PM
[2019-07-31] MEDS ORDERED: MAGNESIUM SULFATE / D5W 1 GM/100 ML BAG IV ONE (12:17)
[2019-07-31] MEDS ORDERED: MAGNESIUM OXIDE 400 MG TAB PO STA (12:17)
[2019-07-31 12:38] LABS: POC Urine Blood Trace (Negative); POC Urine Glucose Normal (Normal); POC Urine Ketones Negative (Negative); POC Urine Leukocytes 2+ (Negative); POC Urine Nitrite Negative (Negative); POC Urine Protein Trace (Negative)
--- NOTE | 2019-07-31 13:06 | Electrocardiogram Report ---
Test Reason : Blood Pressure : / mmHG Vent. Rate : 095 BPM Atrial Rate : 085 BPM P-R Int : 000 ms QRS Dur : 076 ms QT Int : 338 ms P-R-T Axes : 000 003 -03 degrees QTc Int : 424 ms Atrial fibrillation Abnormal ECG When compared with ECG of 10-JUL-2019 07:48, Atrial fibrillation has replaced Sinus rhythm Confirmed by Garfield Jamison ([id number]) on 07/31/2019 1:06:16 PM Referred By: Confirmed By:Caleb Jamison
[2019-07-31 13:13] LABS: Appearance Urine Cloudy (Clear); Bacteria Urine Automated Negative (Negative); Bilirubin Urine Negative (Negative); Blood Urine Negative (Negative); Color Urine Dark Yellow; Epithelial Cell Urine Auto >30 /lpf (0-5); Glucose Urine UA Negative (Negative); Ketones Urine Trace (Negative); Leukocyte Esterase Urine 2+ (Negative); Nitrite Urine Negative (Negative); Protein Urine Negative (Negative); RBC Urine Automated 0-4 /hpf (0-4); Specific Gravity Urine 1.028 (1.000-1.030); Urobilinogen Urine Negative (Negative); WBC Urine Automated >30 /hpf (0-5)
--- NOTE | 2019-07-31 13:52 | Emergency Department Note ---
Entered by Elizabeth Rios acting as a scribe for History of Present Illness General Chief complaint: Urinary Symptoms Stated complaint: ON GOING UTI,CANT KEEP ANYTHING DOWN,ON ELIQUIS Time Seen by Provider: 07/31/19 10:46 Source: patient History of Present Illness Onset (ago): month(s) 1 Location: abdomen Pain Consistency: + other (worsening) Maximum Pain Intensity: 2 Quality: + other (urinary symptoms) Relieved By: not by medication (Macrobid, Cipro) Associated symptoms: + denies other symptoms (flank pain), + nausea/vomiting and + other (diarrhea, abdominal pain) The patient is a 78 year old female who presents to the Emergency Room with complaints of worsening urinary symptoms starting a month ago. The patient states that she has had a UTI for a month or so. She states that she has had burning with urination and difficulty urinating. She reports that she has been on Macrobid twice, then put on Cipro, but that made her sick. She states that it made her have vomiting and diarrhea. She states that she stopped it after 3-4 days and called her PCP, who put her back on Macrobid. She reports that she only has 3 more days left of this round, but she is still having the same symptoms. The patient states that 12 hours ago she started having vomiting and diarrhea at the same time. She reports that she has vomited and had diarrhea about 6-7 times since it started. She states that she decided to come to the ED as she was not able to keep her Eliquis, Amlodipine, and Metoprolol this morning. She notes that this is her first UTI in 40-50 years. The patient complains of abdominal pain if she has to urinate or vomit. She notes that 2 weeks ago she had a cardioversion since she was in atrial fibrillation. The patient denies flank pain. Home Medications Home Medications Medication Instructions Recorded Confirmed Type metoprolol tartrate 25 mg tablet 25 mg PO BID #180 tab 12/30/18 07/31/19 Rx ondansetron HCl 4 mg tablet 4 mg PO QID PRN 01/02/19 07/31/19 History acetaminophen 500 mg tablet 1,000 mg PO HS PRN tab 06/03/19 07/31/19 History furosemide 20 mg tablet 20 mg PO QAM PRN tab 06/03/19 07/31/19 History amlodipine [Norvasc] 2.5 mg PO QAM 07/08/19 07/31/19 History nitrofurantoin 100 mg PO BID 10 Days #20 cap 07/23/19 07/31/19 Rx monohydrate/macrocrystals 100 mg capsule apixaban [Eliquis] 5 mg PO BID 07/31/19 07/31/19 History calcium carbonate-vitamin D3 1 tab PO QAM 07/31/19 07/31/19 History [Calcium with Vitamin D] cholecalciferol (vitamin D3) 1,000 units PO QAM 07/31/19 07/31/19 History cinnamon bark 1,000 mg PO QAM 07/31/19 07/31/19 History cyanocobalamin (vitamin B-12) 1,000 mcg PO HS 07/31/19 07/31/19 History omega-3 acid ethyl esters 1 cap PO QAM 07/31/19 07/31/19 History Allergies Allergy/AdvReac Type Severity Reaction Status Date / Time dexamethasone Allergy Severe Shortness Verified 07/31/19 12:33 of Breath, throat constriction Sulfa (Sulfonamide Allergy Severe HIVES Verified 07/31/19 12:33 Antibiotics) adhesive tape Allergy Intermediate redness, Verified 07/31/19 12:33 irritation, peels skin off amoxicillin Allergy Unknown hives Verified 07/31/19 12:33 azithromycin Allergy Unknown Hives Verified 07/31/19 12:33 [From Zithromax Z-Siddhartha] clavulanic acid Allergy Unknown hives Verified 07/31/19 12:33 meperidine Allergy Unknown HIVES Verified 07/31/19 12:33 Penicillins Allergy Unknown hives Verified 07/31/19 12:33 ciprofloxacin [From Cipro] AdvReac Intermediate Vomiting Verified 07/31/19 12:33 codeine AdvReac Unknown NAUSEA AND Verified 07/31/19 12:33 VOMITING ketorolac AdvReac Unknown 'increased Verified 07/31/19 12:33 bleeding' Past Med/Surg History Medical History Acid reflux disease Anxiety no medication Atrial fibrillation Atrial tachycardia Degenerative disc disease Generalized weakness History of breast cancer right breast cancer History of stroke "minor one" no deficits 2014 Hx of non-Hodgkin's lymphoma Hx: UTI (urinary tract infection) Hypertension Lumbar stenosis with neurogenic claudication Lymphoma non-hodgkin lymphoma 2017 Memory difficulty Osteoarthritis Peripheral neuropathy Scoliosis Spinal stenosis Stage 3 chronic kidney disease monitoring Thyroid nodule Surgical History H/O colonoscopy H/O dilation and curettage multiple H/O: hysterectomy EVELIA History of appendectomy with hysterectomy History of back surgery lumbar fusion History of bladder surgery bladder tack History of bronchoscopy History of esophagogastroduodenoscopy (EGD) History of lobectomy of lung Left upper lobe r/t nodule (granuloma) History of mastectomy right with lymph node removal History of tonsillectomy Nausea and vomiting after administration of anesthetic agent S/P cervical spinal fusion x2 (s) unsure of levels. Full ROM S/P cholecystectomy S/P thyroid biopsy negative Family History Mother Coronary heart disease Cancer Atrial fibrillation Father Coronary heart disease Myocardial infarction Cancer Aunt Cancer Other No family history of adverse response to anesthesia Stroke Social History Preferred Language: [place] Communication Ability: Effective Collective Bargaining Specialist Required: No Beliefs That Will Affect Care: None marital status: / Current Living Situation: Alone Other Information That Helps Us Care for You: No Feels Safe at Home: Yes Safety Concerns: Feels Safe At This Time Smoking Status: Never smoker Second Hand Exposure: Yes (hx) ; Hx Alcohol Use: No Hx Substance Use: No Review of Systems See HPI for pertinent positives & negatives. and A total of 10 systems reviewed and were otherwise negative Physical Exam Vital Signs Vital Signs - 24 hr 07/31/19 10:14 07/31/19 11:55 07/31/19 12:52 Temperature 36.8 C 37.2 C Temperature Source Oral Pulse Rate 105 H 94 H Pulse Rate [Right Finger] 87 Pulse Rate from SpO2 Sensor Pulse Rhythm [Right Finger] Regular Pulse Strength [Right Finger] Normal Respiratory Rate 16 20 20 Respiratory Effort / Characteristics Non-Labored Spontaneous Respiratory Depth Normal Respiratory Pattern Regular Blood Pressure 145/79 H 117/62 Blood Pressure [Left Arm] 149/72 H Blood Pressure Mean 101 80 Blood Pressure Mean [Left Arm] 97 Blood Pressure Position [Left Arm] Lying Pulse Oximetry 100 94 96 Oxygen Delivery Method Room Air Room Air Room Air Sepsis Recent Fever Within 48 Hours No Sepsis New/Unexplained Change in Mental Status No Sepsis Action Taken by Nursing No Action Required 07/31/19 12:59 07/31/19 13:00 07/31/19 13:10 Temperature Temperature Source Pulse Rate 108 H 93 H Pulse Rate [Right Finger] Pulse Rate from SpO2 Sensor 108 H 96 H Pulse Rhythm [Right Finger] Pulse Strength [Right Finger] Respiratory Rate 18 19 Respiratory Effort / Characteristics Respiratory Depth Respiratory Pattern Blood Pressure 131/90 Blood Pressure [Left Arm] Blood Pressure Mean 105 Blood Pressure Mean [Left Arm] Blood Pressure Position [Left Arm] Pulse Oximetry 97 96 Oxygen Delivery Method Room Air Room Air Sepsis Recent Fever Within 48 Hours Sepsis New/Unexplained Change in Mental Status Sepsis Action Taken by Nursing 07/31/19 13:20 07/31/19 13:30 07/31/19 13:31 Temperature Temperature Source Pulse Rate 88 82 87 Pulse Rate [Right Finger] Pulse Rate from SpO2 Sensor 91 H 86 84 Pulse Rhythm [Right Finger] Pulse Strength [Right Finger] Respiratory Rate 20 20 19 Respiratory Effort / Characteristics Respiratory Depth Respiratory Pattern Blood Pressure 132/75 Blood Pressure [Left Arm] Blood Pressure Mean 92 Blood Pressure Mean [Left Arm] Blood Pressure Position [Left Arm] Pulse Oximetry 94 96 96 Oxygen Delivery Method Room Air Room Air Sepsis Recent Fever Within 48 Hours Sepsis New/Unexplained Change in Mental Status Sepsis Action Taken by Nursing 07/31/19 13:40 07/31/19 13:50 07/31/19 14:00 Temperature Temperature Source Pulse Rate 78 101 H 88 Pulse Rate [Right Finger] Pulse Rate from SpO2 Sensor 85 98 H 89 Pulse Rhythm [Right Finger] Pulse Strength [Right Finger] Respiratory Rate 25 H 19 19 Respiratory Effort / Characteristics Respiratory Depth Respiratory Pattern Blood Pressure 148/66 H Blood Pressure [Left Arm] Blood Pressure Mean 96 Blood Pressure Mean [Left Arm] Blood Pressure Position [Left Arm] Pulse Oximetry 97 96 97 Oxygen Delivery Method Room Air Room Air Room Air Sepsis Recent Fever Within 48 Hours Sepsis New/Unexplained Change in Mental Status Sepsis Action Taken by Nursing 07/31/19 14:01 07/31/19 14:10 07/31/19 14:20 Temperature Temperature Source Pulse Rate 93 H 93 H 98 H Pulse Rate [Right Finger] Pulse Rate from SpO2 Sensor 93 H 92 H 93 H Pulse Rhythm [Right Finger] Pulse Strength [Right Finger] Respiratory Rate 25 H 22 19 Respiratory Effort / Characteristics Respiratory Depth Respiratory Pattern Blood Pressure Blood Pressure [Left Arm] Blood Pressure Mean Blood Pressure Mean [Left Arm] Blood Pressure Position [Left Arm] Pulse Oximetry 97 93 96 Oxygen Delivery Method Room Air Room Air Room Air Sepsis Recent Fever Within 48 Hours Sepsis New/Unexplained Change in Mental Status Sepsis Action Taken by Nursing 07/31/19 14:30 07/31/19 14:31 07/31/19 14:40 Temperature Temperature Source Pulse Rate 91 H 88 85 Pulse Rate [Right Finger] Pulse Rate from SpO2 Sensor 92 H 90 92 H Pulse Rhythm [Right Finger] Pulse Strength [Right Finger] Respiratory Rate 21 18 20 Respiratory Effort / Characteristics Respiratory Depth Respiratory Pattern Blood Pressure 133/65 Blood Pressure [Left Arm] Blood Pressure Mean 80 Blood Pressure Mean [Left Arm] Blood Pressure Position [Left Arm] Pulse Oximetry 93 94 93 Oxygen Delivery Method Room Air Room Air Room Air Sepsis Recent Fever Within 48 Hours Sepsis New/Unexplained Change in Mental Status Sepsis Action Taken by Nursing 07/31/19 14:50 07/31/19 15:00 07/31/19 15:01 Temperature Temperature Source Pulse Rate 93 H 83 85 Pulse Rate [Right Finger] Pulse Rate from SpO2 Sensor 102 H 85 83 Pulse Rhythm [Right Finger] Pulse Strength [Right Finger] Respiratory Rate 22 17 18 Respiratory Effort / Characteristics Respiratory Depth Respiratory Pattern Blood Pressure 152/71 H Blood Pressure [Left Arm] Blood Pressure Mean 92 Blood Pressure Mean [Left Arm] Blood Pressure Position [Left Arm] Pulse Oximetry 95 97 97 Oxygen Delivery Method Room Air Room Air Room Air Sepsis Recent Fever Within 48 Hours Sepsis New/Unexplained Change in Mental Status Sepsis Action Taken by Nursing GENERAL: Patient is in no acute distress. HEENT: No acute trauma, normocephalic atraumatic, mucous membranes moist, no nasal congestion, no scleral icterus. NECK: No stridor, no adenopathy, no meningismus, trachea is midline. LUNGS: Clear to auscultation bilaterally, no wheeze, no rhonchi, breath sounds equal. HEART: Without murmurs gallops or rubs, regular rate and rhythm during my evaluation. ABDOMEN: Soft, mildly diffusely tender, bowel sounds positive, no hernias, no peritonitis. EXTREMITIES: No cyanosis or edema, full range of motion of all the joints without pain or difficulty, no signs for acute trauma. NEUROLOGIC: Oriented x 3, no acute motor or sensory deficits, no focal weakness. SKIN: No rash, no jaundice, no diaphoresis. Course Course 1047: EMR reviewed. The patient had a urinalysis on July 21 as well as the 11 of June. The one on the showed a potential UTI and the urine culture from that day showed E. coli resistant to Ampicillin, Augmentin, and Bactrim. 1050: The patient was evaluated in room B7. A complete history and physical exam was performed. 1349: I reevaluated the patient and updated her on her test results. I discussed the treatment plan with her. She verbally agrees and understands. 1406: I discussed the patient's case with Dr. Carmelina NAVARRO Hospitalist. She will evaluate the patient for further management. Administered Medications Ceftriaxone Sodium 2,000 mg/ (Dextrose) 70 mls @ 100 mls/hr IV Q24H [place]; P rotocol Stop: 08/05/19 17:59 Last Admin: 07/31/19 18:07 Dose: 100 mls/hr Documented by: [id number] Sodium Chloride (Nss 1000ml) 1,000 mls @ 80 mls/hr IV .[id number] [place] Stop: 08/01/19 18:24 Last Admin: 07/31/19 17:38 Dose: 80 mls/hr Documented by: [id number] Discontinued Medications Sodium Chloride (Nss 1000ml) 1,000 mls @ 999 mls/hr IV .[id number] [place] Stop: 07/31/19 12:00 Last Infusion: 07/31/19 12:42 Dose: 0 mls/hr Documented by: [id number] Admin: 07/31/19 11:24 Dose: 999 mls/hr Documented by: [id number] Acetaminophen (Ofirmev) 1,000 mg in 100 mls @ 400 mls/hr IV NOW STA Stop: 07/31/19 11:07 Last Infusion: 07/31/19 11:39 Dose: 0 mls/hr Documented by: [id number] Admin: 07/31/19 11:24 Dose: 400 mls/hr Documented by: [id number] Magnesium Sulfate/Dextrose (Magnesium Sulfate / D5w) 1 gm in 100 mls @ 100 mls/hr IV ONE ONE Stop: 07/31/19 13:16 Last Infusion: 07/31/19 14:16 Dose: 0 mls/hr Documented by: [id number] Admin: 07/31/19 12:55 Dose: 100 mls/hr Documented by: [id number] Magnesium Oxide (Mag-Ox) 400 mg PO NOW STA Stop: 07/31/19 12:18 Last Admin: 07/31/19 12:55 Dose: 400 mg Documented by: [id number] Ondansetron HCl (Zofran) 4 mg IV NOW STA Stop: 07/31/19 10:54 Last Admin: 07/31/19 11:24 Dose: 4 mg Documented by: [id number] Medical Decision Making Differential Diagnosis Differential diagnoses include failed outpatient treatment, medication reaction, dehydration, electrolyte imbalance, pyelonephritis, hydronephrosis, renal failure. Medical Records Attestation: I reviewed the patient's medical records. Home Medications Current Medication List: was personally reviewed by me Laboratory Data Attestation: I reviewed the patient's lab results. Result diagrams: 07/31/19 11:09 07/31/19 11:09 Lab Results 07/31/19 07/31/19 07/31/19 Range/Units 11:09 11:09 11:09 WBC 8.14 (4.8-10.8) K/uL RBC 3.99 L (4.2-5.4) M/uL Hgb 13.1 (12.0-16.0) g/dL Hct 38.1 (37-47) % MCV 95.5 (80-100) fL MCH 32.8 (25-34) pg MCHC 34.4 (32-36) g/dL RDW Std Deviation 47.8 H (36.4-46.3) fL RDW Coeff of Zackary 13.7 (11.5-14.5) % Plt Count 161 (130-400) K/uL MPV 9.8 (7.4-10.4) fL Immature Gran % (Auto) 0.2 % Neut % (Auto) 89.2 % Lymph % (Auto) 6.3 % [place] % (Auto) 4.2 % Eos % (Auto) 0.1 % Baso % (Auto) 0.0 % Immature Gran # (Auto) 0.02 (0.00-0.02) K/uL Neut # (Auto) 7.26 H (1.4-6.5) K/uL Lymph # (Auto) 0.51 L (1.2-3.4) K/uL [place] # (Auto) 0.34 (0.11-0.59) K/uL Eos # (Auto) 0.01 (0-0.5) K/uL Baso # (Auto) 0.00 (0-0.2) K/uL Sodium 136 (136-145) mmol/L Potassium 4.2 (3.5-5.1) mmol/L Chloride 105 (98-107) mmol/L Carbon Dioxide 24 (21-32) mmol/L Anion Gap 7.0 (3-11) BUN 20 H (7-18) mg/dl Creatinine 1.20 (0.6-1.2) mg/dl Est Cr Clr Drug Dosing 40.6 ml/min Est GFR ( Amer) 49.8 Est GFR (Non-Af Amer) 43.0 BUN/Creatinine Ratio 16.4 (10-20) Glucose 143 H (70-99) mg/dl Calcium 9.3 (8.5-10.1) mg/dl Magnesium 1.6 L (1.8-2.4) mg/dl Total Bilirubin 1.2 H (0.2-1) mg/dl AST 28 (15-37) U/L ALT 27 (12-78) U/L Alkaline Phosphatase 106 (45-117) U/L Troponin I < 0.015 (0-0.045) ng/ml Total Protein 7.3 (6.4-8.2) gm/dl Albumin 3.7 (3.4-5.0) gm/dl Globulin 3.6 (2.5-4.0) gm/dl Albumin/Globulin Ratio 1.0 (0.9-2) Lipase 153 (73-393) U/L Urine Color Urine Appearance (Clear) Urine pH (4.5-7.5) Ur Specific [place] (1.000-1.030) Urine Protein (Negative) POC Urine Protein (Negative) Urine Glucose (UA) (Negative) POC Ur Glucose (UA) (Normal) Urine Ketones (Negative) POC Urine Ketones (Negative) Urine Blood (Negative) POC Urine Blood (Negative) Urine Nitrite (Negative) POC Urine Nitrite (Negative) Urine Bilirubin (Negative) Urine Urobilinogen (Negative) Ur Leukocyte Esterase (Negative) POC U Leukocyte Esteras (Negative) Urine WBC (Auto) (0-5) /hpf Urine RBC (Auto) (0-4) /hpf U Hyaline Cast (Auto) (0-5) /lpf U Epithel Cells (Auto) (0-5) /lpf Urine Bacteria (Auto) (Negative) 07/31/19 07/31/19 Range/Units 12:30 12:30 WBC (4.8-10.8) K/uL RBC (4.2-5.4) M/uL Hgb (12.0-16.0) g/dL Hct (37-47) % MCV (80-100) fL MCH (25-34) pg MCHC (32-36) g/dL RDW Std Deviation (36.4-46.3) fL RDW Coeff of Zackary (11.5-14.5) % Plt Count (130-400) K/uL MPV (7.4-10.4) fL Immature Gran % (Auto) % Neut % (Auto) % Lymph % (Auto) % [place] % (Auto) % Eos % (Auto) % Baso % (Auto) % Immature Gran # (Auto) (0.00-0.02) K/uL Neut # (Auto) (1.4-6.5) K/uL Lymph # (Auto) (1.2-3.4) K/uL [place] # (Auto) (0.11-0.59) K/uL Eos # (Auto) (0-0.5) K/uL Baso # (Auto) (0-0.2) K/uL Sodium (136-145) mmol/L Potassium (3.5-5.1) mmol/L Chloride (98-107) mmol/L Carbon Dioxide (21-32) mmol/L Anion Gap (3-11) BUN (7-18) mg/dl Creatinine (0.6-1.2) mg/dl Est Cr Clr Drug Dosing ml/min Est GFR ( Amer) Est GFR (Non-Af Amer) BUN/Creatinine Ratio (10-20) Glucose (70-99) mg/dl Calcium (8.5-10.1) mg/dl Magnesium (1.8-2.4) mg/dl Total Bilirubin (0.2-1) mg/dl AST (15-37) U/L ALT (12-78) U/L Alkaline Phosphatase (45-117) U/L Troponin I (0-0.045) ng/ml Total Protein (6.4-8.2) gm/dl Albumin (3.4-5.0) gm/dl Globulin (2.5-4.0) gm/dl Albumin/Globulin Ratio (0.9-2) Lipase (73-393) U/L Urine Color Dark Yellow Urine Appearance Cloudy A (Clear) Urine pH 5.0 (4.5-7.5) Ur Specific [place] 1.028 (1.000-1.030) Urine Protein Negative (Negative) POC Urine Protein Trace H (Negative) Urine Glucose (UA) Negative (Negative) POC Ur Glucose (UA) Normal (Normal) Urine Ketones Trace H (Negative) POC Urine Ketones Negative (Negative) Urine Blood Negative (Negative) POC Urine Blood Trace H (Negative) Urine Nitrite Negative (Negative) POC Urine Nitrite Negative (Negative) Urine Bilirubin Negative (Negative) Urine Urobilinogen Negative (Negative) Ur Leukocyte Esterase 2+ H (Negative) POC U Leukocyte Esteras 2+ H (Negative) Urine WBC (Auto) >30 H (0-5) /hpf Urine RBC (Auto) 0-4 (0-4) /hpf U Hyaline Cast (Auto) 10-30 H (0-5) /lpf U Epithel Cells (Auto) >30 H (0-5) /lpf Urine Bacteria (Auto) Negative (Negative) Imaging Data Radiologist's Impression: Radiology results as stated below per my review and the radiologist's interpretation: ABDOMEN AND PELVIS CT WITHOUT CONTRAST CT DOSE: 938.98 mGycm HISTORY: flank pain. Lymphoma. Assess for hydronephrosis. TECHNIQUE: Multiaxial CT images of the abdomen and pelvis were performed without contrast. A dose lowering technique was utilized adhering to the principles of ALARA. COMPARISON STUDY: Abdomen and pelvis CT 03/04/2019. FINDINGS: Small fat-containing right-sided Bochdalek hernia. Mild interstitial thickening at the lung bases. There is a tip of a central venous catheter at the distal SVC seen. This only partially imaged on this study. The heart remains mildly enlarged. No pneumoperitoneum. No pneumatosis. Extensive posterior decompression fusion within the lower thoracic line, lumbar spine, and sacrum with pedicle screws and rods. The left T12 pedicle screw partially extends into the central canal. This remains unchanged. No suspicious lytic or blastic osseous lesions. Tiny hiatus hernia. Tiny fat-containing left inguinal hernia. The bladder is unremarkable. The uterus is surgically absent. No significant pelvic free fluid. Cholecystectomy. The unenhanced liver, spleen, adrenal glands, and kidneys are unremarkable. No hydronephrosis. Stable common bile duct dilatation. This is likely due to the patient's postcholecystectomy state. Suboptimal evaluation for bowel pathology due to the lack of intravenous and oral contrast. However, there is no definite bowel wall thickening or obstruction. The appendix is not identified and may be surgically absent. Colonic diverticulosis. No evidence for diverticulitis. Questionable mild inflammatory change adjacent to the pancreatic head. IMPRESSION: 1. No hydronephrosis. 2. Questionable mild inflammatory change adjacent to the pancreatic head. Recommend correlation with pancreatic enzymes to exclude the possibility of acute pancreatitis. 3. No bowel wall thickening or obstruction. 4. Cholecystectomy. Stable common bile duct dilatation. 5. Additional findings as described above. ACT 112: Negative or not required by law. Electronically signed by: Braxton Capps M.D. 07/31/2019 12:03 PM ECG Data Attestation: I personally reviewed and interpreted this ECG as follows: Indication: + vomiting Rate (beats per minute): 95 Rhythm: + atrial fibrillation ECG ST segments: no ST elevation ECG Findings: + Other (QT-c 424); no PVCs Comparison ECG Date: from (07/10/2019) Change: the following changes noted (atrial fibrillation is new) Blood Pressure Blood Pressure Findings: Elevated blood pressure Blood Pressure Disposition: Referred to patients primary care provider MDM Narrative There is no leukocytosis or concerning anemia. No kidney failure, the magnesium was low at 1.6. No worrisome liver enzyme elevation. No evidence for pancreatitis. EKG shows atrial fibrillation, no acute ischemia. Cardiac enzyme testing x1 is not consistent with acute cardiac injury. Urinalysis is con sistent with infection. Urine culture is pending. Abdominal and pelvis CT did not show any hydronephrosis or ureteral stone. There was some potential inflammation around the pancreas. The patient presents with fatigue, weakness, diarrhea and concerns for dehydration. She has been on several different antibiotics for a persistent UTI. She just cannot seem to clear the UTI and she still has urinary symptoms. Patient received IV saline for hydration. She was given IV Tylenol for pain, IV Zofran for nausea. She received oral and IV magnesium. The patient requires a hospital stay. She has a persistent UTI, she has failed outpatient treatment. She requires hydration, electrolyte replacement and I do believe IV antibiotics. Ceftriaxone would be a reasonable choice. I did speak with the patient and human services case manager. The on-call hospitalist was consulted. Continuous Cardiac Monitoring: An order was placed for continuous cardiac monitoring. The monitor shows a rate of 105 with atrial fibrillation. Impression & Plan Vomiting and diarrhea, A-fib, UTI (urinary tract infection), Failure of outp atient treatment Discharge Plan Visit Data *Final* Discharge Date/Time: 07/31/19 16:15 Chief Complaint: Urinary Symptoms Stated Complaint: ON GOING UTI,CANT KEEP ANYTHING DOWN,ON ELIQUIS ED Provider: Gallito Varghese Discharge Problem: Vomiting and diarrhea, A-fib, UTI (urinary tract infection), Failure of outpatient treatment Patient Disposition: Admitted As Inpatient Discharge Instructions Interventions: ED Discharge Assessment Last Done: 07/31/19 16:15 Discharge Problem: A-fib Qualifiers: Atrial fibrillation type: unspecified Qualified Code(s): I48.91 - Unspecified atrial fibrillation UTI (urinary tract infection) Qualifiers: Urinary tract infection type: site unspecified Hematuria presence: without hematuria Qualified Code(s): N39.0 - Urinary tract infection, site not specified The scribe's documentation has been prepared under my direction and personally reviewed by me in its entirety. I confirm that the note above accurately reflects all work, treatment, procedures, and medical decision making performed by me.
--- NOTE | 2019-07-31 15:03 | History & Physical Report ---
Date of Service July 31, 2019 Assessment & Plan (1) Vomiting and diarrhea: Patient with one day of n/v/d. Possibly viral gastroenteritis vs untreated UTI vs medication effects from Nitrofurantoin. She is afebrile, hemodynamically stable, labs overall unremarkable with mild hypomagnesemia. -Zofran PRN -IVF and electrolyte repletion Present on Admission?: Yes (2) UTI (urinary tract infection): Patient with E. coli UTI, still with symptoms despite treatment with three courses of antibiotics. Repeat UA and culture sent -Ceftriaxone 1gm IV daily -Follow cultures Present on Admission?: Yes (3) Failure of outpatient treatment: As above Present on Admission?: Yes (4) A-fib: Patient in rate controlled atrial fibrillation, anticoagulated with Eliquis. She vomited up her morning medications -Continue Eliquis -Continue Metoprolol -Continue to monitor Present on Admission?: Yes (5) Vitamin D deficiency: Chronic. -Hold supplement while inpatient -Patient can continue Vitamin D on discharge Present on Admission?: Yes (6) Hypertension: Blood pressure stable at present -Continue metoprolol and amlodipine -Continue to monitor F/E/N - NSS at 80mL/hr x 2 liters, electrolyte repletion as needed, Heart healthy diet as tolerated Ppx - Continue home Eliquis Code - DNR/DNI per discussion with patient Dispo - Observation to medical floor for UTI, failed outpatient therapy, N/V/D and PO intolerance Present on Admission?: Yes History of Present Illness Chief Complaint: nausea/vomiting/diarrhea/po intolerance Primary Care Provider: Li Miner MD Marilyn CoxThao is a pleasant 78yo C female with history of AF on Eliquis, HTN/GERD presenting with multiple complaints. She states she has had a UTI for the last 8-10 weeks. She has persistent dysuria with urinary frequency and urgency. She completed a course of Nitrofurantoin as well as Cipro and is currently taking her second course of Nitrofurantoin. She has some suprapubic discomfort as well as subjective fevers/chills and some sweating. Additionally she is complaining of nausea/vomiting and diarrhea which started last night around 11 PM. She reports 6-7 episodes of non-bloody/non-bilious emesis and watery diarrhea. Her last episode of vomiting and diarrhea was this morning around 08:30. She vomited her morning medications and has been unable to tolerate PO intake. Urine culture from 05/21/19 positive for >100,000 CFU E.coli. Patient with multiple allergies to medication classes typically used to treat UTI. ER Course: Acetaminophen 1gm, Mag oxide 400mg, Mag sulfate 1gm, Zofran 4mg, NSS x 1L Allergies Allergy/AdvReac Type Severity Reaction Status Date / Time dexamethasone Allergy Severe Shortness Verified 07/31/19 12:33 of Breath, throat constriction Sulfa (Sulfonamide Allergy Severe HIVES Verified 07/31/19 12:33 Antibiotics) adhesive tape Allergy Intermediate redness, Verified 07/31/19 12:33 irritation, peels skin off amoxicillin Allergy Unknown hives Verified 07/31/19 12:33 azithromycin Allergy Unknown Hives Verified 07/31/19 12:33 [From Zithromax Z-Siddhartha] clavulanic acid Allergy Unknown hives Verified 07/31/19 12:33 meperidine Allergy Unknown HIVES Verified 07/31/19 12:33 Penicillins Allergy Unknown hives Verified 07/31/19 12:33 ciprofloxacin [From Cipro] AdvReac Intermediate Vomiting Verified 07/31/19 12:33 codeine AdvReac Unknown NAUSEA AND Verified 07/31/19 12:33 VOMITING ketorolac AdvReac Unknown 'increased Verified 07/31/19 12:33 bleeding' Home Medications Home Medications Medication Instructions Recorded Confirmed Type metoprolol tartrate 25 mg tablet 25 mg PO BID #180 tab 12/30/18 07/31/19 Rx ondansetron HCl 4 mg tablet 4 mg PO QID PRN 01/02/19 07/31/19 History acetaminophen 500 mg tablet 1,000 mg PO HS PRN tab 06/03/19 07/31/19 History furosemide 20 mg tablet 20 mg PO QAM PRN tab 06/03/19 07/31/19 History amlodipine [Norvasc] 2.5 mg PO QAM 07/08/19 07/31/19 History nitrofurantoin 100 mg PO BID 10 Days #20 cap 07/23/19 07/31/19 Rx monohydrate/macrocrystals 100 mg capsule apixaban [Eliquis] 5 mg PO BID 07/31/19 07/31/19 History calcium carbonate-vitamin D3 1 tab PO QAM 07/31/19 07/31/19 History [Calcium with Vitamin D] cholecalciferol (vitamin D3) 1,000 units PO QAM 07/31/19 07/31/19 History cinnamon bark 1,000 mg PO QAM 07/31/19 07/31/19 History cyanocobalamin (vitamin B-12) 1,000 mcg PO HS 07/31/19 07/31/19 History omega-3 acid ethyl esters 1 cap PO QAM 07/31/19 07/31/19 History Past Med/Surg History Medical History Acid reflux disease Anxiety no medication Atrial fibrillation Atrial tachycardia Degenerative disc disease Generalized weakness History of breast cancer right breast cancer History of stroke "minor one" no deficits 2014 Hx of non-Hodgkin's lymphoma Hx: UTI (urinary tract infection) Hypertension Lumbar stenosis with neurogenic claudication Lymphoma non-hodgkin lymphoma 2017 Memory difficulty Osteoarthritis Peripheral neuropathy Scoliosis Spinal stenosis Stage 3 chronic kidney disease monitoring Thyroid nodule Surgical History H/O colonoscopy H/O dilation and curettage multiple H/O: hysterectomy EVELIA History of appendectomy with hysterectomy History of back surgery lumbar fusion History of bladder surgery bladder tack History of bronchoscopy History of esophagogastroduodenoscopy (EGD) History of lobectomy of lung Left upper lobe r/t nodule (granuloma) History of mastectomy right with lymph node removal History of tonsillectomy Nausea and vomiting after administration of anesthetic agent S/P cervical spinal fusion x2 (1970's) unsure of levels. 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 Distribution Required: No Beliefs That Will Affect Care: None marital status: / Current Living Situation: Alone Other Information That Helps Us Care for You: No Feels Safe at Home: Yes Safety Concerns: Feels Safe At This Time Smoking Status: Never smoker Second Hand Exposure: Yes (hx) ; Hx Alcohol Use: No Hx Substance Use: No Review of Systems Review of Systems: All systems reviewed & are unremarkable except as noted in HPI & below Physical Exam Physical Exam: General: patient resting comfortably, NAD, ill in appearance, AA&O x 4 Skin: warm, dry, intact, no rashes or lesions HEENT: NC/AT, PERRL, EOMI, anicteric sclera, conjunctiva without injection, external ear normal to inspection and nontender, nares patent, dry mucus membranes, dentition intact, no oropharyngeal lesions, neck supple, trachea midline, no LAD, no thyromegaly, no JVD Heart: +S1/S2, irregularly irregular, no m/r/g, Port in right anterior chest wall, nontender to palpation, s/p mastectomy Lungs: equal air entry bilaterally, no rales/rhonchi/wheezes Abd: +BS, soft, ND, mild suprapubic tenderness, no masses/organomegaly/ascites Ext: warm, 2+ pulses in UE/LE bilaterally, no clubbing/cyanosis or edema Neuro: nonfocal, patient AA&O x 4, speech intact, no facial droop, moving all extremities on command with equal strength 5/5 Results & Data Vital Signs (Past 12 Hours) Vital Signs Temp Pulse Pulse Resp BP BP Pulse Ox 07/31/19 13:20 88 20 94 07/31/19 13:10 93 H 19 96 07/31/19 13:00 108 H 18 131/90 97 07/31/19 12:52 37.2 C 94 H 20 117/62 96 07/31/19 11:55 87 20 149/72 H 94 07/31/19 10:14 36.8 C 105 H 16 145/79 H 100 Laboratory Results Lab Results 07/31/19 07/31/19 07/31/19 Range/Units 11:09 11:09 11:09 WBC 8.14 (4.8-10.8) K/uL RBC 3.99 L (4.2-5.4) M/uL Hgb 13.1 (12.0-16.0) g/dL Hct 38.1 (37-47) % MCV 95.5 (80-100) fL MCH 32.8 (25-34) pg MCHC 34.4 (32-36) g/dL RDW Std Deviation 47.8 H (36.4-46.3) fL RDW Coeff of Zackary 13.7 (11.5-14.5) % Plt Count 161 (130-400) K/uL MPV 9.8 (7.4-10.4) fL Immature Gran % (Auto) 0.2 % Neut % (Auto) 89.2 % Lymph % (Auto) 6.3 % Hendry % (Auto) 4.2 % Eos % (Auto) 0.1 % Baso % (Auto) 0.0 % Immature Gran # (Auto) 0.02 (0.00-0.02) K/uL Neut # (Auto) 7.26 H (1.4-6.5) K/uL Lymph # (Auto) 0.51 L (1.2-3.4) K/uL Hendry # (Auto) 0.34 (0.11-0.59) K/uL Eos # (Auto) 0.01 (0-0.5) K/uL Baso # (Auto) 0.00 (0-0.2) K/uL Sodium 136 (136-145) mmol/L Potassium 4.2 (3.5-5.1) mmol/L Chloride 105 (98-107) mmol/L Carbon Dioxide 24 (21-32) mmol/L Anion Gap 7.0 (3-11) BUN 20 H (7-18) mg/dl Creatinine 1.20 (0.6-1.2) mg/dl Est Cr Clr Drug Dosing 40.6 ml/min Est GFR ( Amer) 49.8 Est GFR (Non-Af Amer) 43.0 BUN/Creatinine Ratio 16.4 (10-20) Glucose 143 H (70-99) mg/dl Calcium 9.3 (8.5-10.1) mg/dl Magnesium 1.6 L (1.8-2.4) mg/dl Total Bilirubin 1.2 H (0.2-1) mg/dl AST 28 (15-37) U/L ALT 27 (12-78) U/L Alkaline Phosphatase 106 (45-117) U/L Troponin I < 0.015 (0-0.045) ng/ml Total Protein 7.3 (6.4-8.2) gm/dl Albumin 3.7 (3.4-5.0) gm/dl Globulin 3.6 (2.5-4.0) gm/dl Albumin/Globulin Ratio 1.0 (0.9-2) Lipase 153 (73-393) U/L Urine Color Urine Appearance (Clear) Urine pH (4.5-7.5) Ur Specific [place] (1.000-1.030) Urine Protein (Negative) POC Urine Protein (Negative) Urine Glucose (UA) (Negative) POC Ur Glucose (UA) (Normal) Urine Ketones (Negative) POC Urine Ketones (Negative) Urine Blood (Negative) POC Urine Blood (Negative) Urine Nitrite (Negative) POC Urine Nitrite (Negative) Urine Bilirubin (Negative) Urine Urobilinogen (Negative) Ur Leukocyte Esterase (Negative) POC U Leukocyte Esteras (Negative) Urine WBC (Auto) (0-5) /hpf Urine RBC (Auto) (0-4) /hpf U Hyaline Cast (Auto) (0-5) /lpf U Epithel Cells (Auto) (0-5) /lpf Urine Bacteria (Auto) (Negative) 07/31/19 07/31/19 Range/Units 12:30 12:30 WBC (4.8-10.8) K/uL RBC (4.2-5.4) M/uL Hgb (12.0-16.0) g/dL Hct (37-47) % MCV (80-100) fL MCH (25-34) pg MCHC (32-36) g/dL RDW Std Deviation (36.4-46.3) fL RDW Coeff of Zackary (11.5-14.5) % Plt Count (130-400) K/uL MPV (7.4-10.4) fL Immature Gran % (Auto) % Neut % (Auto) % Lymph % (Auto) % Hendry % (Auto) % Eos % (Auto) % Baso % (Auto) % Immature Gran # (Auto) (0.00-0.02) K/uL Neut # (Auto) (1.4-6.5) K/uL Lymph # (Auto) (1.2-3.4) K/uL Hendry # (Auto) (0.11-0.59) K/uL Eos # (Auto) (0-0.5) K/uL Baso # (Auto) (0-0.2) K/uL Sodium (136-145) mmol/L Potassium (3.5-5.1) mmol/L Chloride (98-107) mmol/L Carbon Dioxide (21-32) mmol/L Anion Gap (3-11) BUN (7-18) mg/dl Creatinine (0.6-1.2) mg/dl Est Cr Clr Drug Dosing ml/min Est GFR ( Amer) Est GFR (Non-Af Amer) BUN/Creatinine Ratio (10-20) Glucose (70-99) mg/dl Calcium (8.5-10.1) mg/dl Magnesium (1.8-2.4) mg/dl Total Bilirubin (0.2-1) mg/dl AST (15-37) U/L ALT (12-78) U/L Alkaline Phosphatase (45-117) U/L Troponin I (0-0.045) ng/ml Total Protein (6.4-8.2) gm/dl Albumin (3.4-5.0) gm/dl Globulin (2.5-4.0) gm/dl Albumin/Globulin Ratio (0.9-2) Lipase (73-393) U/L Urine Color Dark Yellow Urine Appearance Cloudy A (Clear) Urine pH 5.0 (4.5-7.5) Ur Specific [place] 1.028 (1.000-1.030) Urine Protein Negative (Negative) POC Urine Protein Trace H (Negative) Urine Glucose (UA) Negative (Negative) POC Ur Glucose (UA) Normal (Normal) Urine Ketones Trace H (Negative) POC Urine Ketones Negative (Negative) Urine Blood Negative (Negative) POC Urine Blood Trace H (Negative) Urine Nitrite Negative (Negative) POC Urine Nitrite Negative (Negative) Urine Bilirubin Negative (Negative) Urine Urobilinogen Negative (Negative) Ur Leukocyte Esterase 2+ H (Negative) POC U Leukocyte Esteras 2+ H (Negative) Urine WBC (Auto) >30 H (0-5) /hpf Urine RBC (Auto) 0-4 (0-4) /hpf U Hyaline Cast (Auto) 10-30 H (0-5) /lpf U Epithel Cells (Auto) >30 H (0-5) /lpf Urine Bacteria (Auto) Negative (Negative) Diagnostic Findings ABDOMEN AND PELVIS CT WITHOUT CONTRAST CT DOSE: 938.98 mGycm HISTORY: flank pain. Lymphoma. Assess for hydronephrosis. TECHNIQUE: Multiaxial CT images of the abdomen and pelvis were performed without contrast. A dose lowering technique was utilized adhering to the principles of ALARA. COMPARISON STUDY: Abdomen and pelvis CT 03/04/2019. FINDINGS: Small fat-containing right-sided Bochdalek hernia. Mild interstitial thickening at the lung bases. There is a tip of a central venous catheter at the distal SVC seen. This only partially imaged on this study. The heart remains mildly enlarged. No pneumoperitoneum. No pneumatosis. Extensive posterior decompression fusion within the lower thoracic line, lumbar spine, and sacrum with pedicle screws and rods. The left T12 pedicle screw partially extends into the central canal. This remains unchanged. No suspicious lytic or blastic osseous lesions. Tiny hiatus hernia. Tiny fat-containing left inguinal hernia. The bladder is unremarkable. The uterus is surgically absent. No significant pelvic free fluid. Cholecystectomy. The unenhanced liver, spleen, adrenal g lands, and kidneys are unremarkable. No hydronephrosis. Stable common bile duct dilatation. This is likely due to the patient's postcholecystectomy state. Suboptimal evaluation for bowel pathology due to the lack of intravenous and oral contrast. However, there is no definite bowel wall thickening or obstruction. The appendix is not identified and may be surgically absent. Colonic diverticulosis. No evidence for diverticulitis. Questionable mild inflammatory change adjacent to the pancreatic head. IMPRESSION: 1. No hydronephrosis. 2. Questionable mild inflammatory change adjacent to the pancreatic head. Recommend correlation with pancreatic enzymes to exclude the possibility of acute pancreatitis. 3. No bowel wall thickening or obstruction. 4. Cholecystectomy. Stable common bile duct dilatation. 5. Additional findings as described above. ACT 112: Negative or not required by law. Electronically signed by: Braxton Capps M.D. 07/31/2019 12:03 PM Dictated: 07/31/19 1155 Transcribed: 07/31/19 1155 ECG Additional Comments: Atrial fibrillation Abnormal ECG When compared with ECG of 10-JUL-2019 07:48, Atrial fibrillation has replaced Sinus rhythm Confirmed by Garfield Jamison ([id number]) on 07/31/2019 1:06:16 PM Code Status & VTE Plan Code Status DNR VTE Prophylaxis Plan VTE Prophylaxis will be ordered: Yes PG Care Time/CCT Total # of Minutes Spent Total Time Spent with Patient: Total time spent is greater than 50% in coordination of care (as documented) at patient's floor/unit and/or counseling patient: Coding Level of Care Code 09995 OBS Care - Level 3 Diagnoses Vomiting and diarrhea R11.10; R19.7 UTI (urinary tract infection) N39.0 Hematuria presence: without hematuria Urinary tract infection type: site unspecified Failure of outpatient treatment Z78.9 A-fib I48.91 Atrial fibrillation type: unspecified Vitamin D deficiency E55.9 Hypertension I10 Hypertension type: unspecified (1) UTI (urinary tract infection) Hematuria presence: without hematuria Urinary tract infection type: site unspecified Qualified Code(s): N39.0 - Urinary tract infection, site not specified (2) A-fib Atrial fibrillation type: unspecified Qualified Code(s): I48.91 - Unspecified atrial fibrillation (3) Hypertension Hypertension type: unspecified Qualified Code(s): I10 - Essential (primary) hypertension
[2019-07-31] MEDS ORDERED: ONDANSETRON INJ 2 MG/ML 2 ML VIAL IV PRN (17:18)
[2019-07-31] MEDS: SODIUM CHLORIDE 0.9% 1000ML 1,000 ML IV SCH (17:38)
[2019-07-31] MEDS: cefTRIAXone SODIUM 2,000 MG in DEXTROSE 5% 50 ML IV SCH (18:07)
[2019-07-31] MEDS: ACETAMINOPHEN 325 MG TAB PO PRN (20:46)
[2019-07-31] MEDS: METOPROLOL TARTRATE 25 MG TAB PO SCH (20:47)
[2019-07-31] MEDS: APIXABAN 5 MG TABLET PO SCH (20:47)
[2019-07-31] MEDS: CYANOCOBALAMIN 500 MCG TABLET (VITAMIN B-12) PO SCH (20:48)
[2019-08-01] MEDS ORDERED: HEPARIN 100 UNIT/ML 5ML FLUSH FLUSH PRN (00:55)
[2019-08-01] MEDS: SODIUM CHLORIDE 0.9% 1000ML 1,000 ML IV SCH (05:32)
[2019-08-01 06:37] LABS: Basophils # (auto) 0.01 K/uL (0-0.2); Basophils % (auto) 0.3 %; Eosinophils # (auto) 0.06 K/uL (0-0.5); Eosinophils % (auto) 1.5 %; Hematocrit (blood only) 34.3 % (37-47); Hemoglobin 11.6 g/dL (12.0-16.0); Immature Granulocytes # (auto) 0.01 K/uL (0.00-0.02); Immature Granulocytes % (auto) 0.3 %; Lymphocytes # (auto) 0.74 K/uL (1.2-3.4); Lymphocytes % (auto) 18.5 %; Mean Corpuscular Hgb Conc 33.8 g/dL (32-36); Mean Corpuscular Volume 97.7 fL (80-100); Mean Platelet Volume 9.4 fL (7.4-10.4); Neutrophils # (auto) 2.57 K/uL (1.4-6.5); Neutrophils % (auto) 64.4 %; Platelet Count 128 K/uL (130-400); RDW Standard Deviation 49.5 fL (36.4-46.3); Red Blood Count 3.51 M/uL (4.2-5.4); White Blood Count 3.99 K/uL (4.8-10.8)
[2019-08-01 07:08] LABS: BUN Creatinine Ratio 15.5 (10-20); Calcium 8.4 mg/dl (8.5-10.1); Creatinine Clr Calc Pharmacy 50.2 ml/min; Est GFR (African American) 64.4; Est GFR (Non-African American) 55.5; Magnesium 1.9 mg/dl (1.8-2.4); Potassium 4.2 mmol/L (3.5-5.1)
[2019-08-01] MEDS: ACETAMINOPHEN 325 MG TAB PO PRN ×2 (09:32→21:21)
[2019-08-01] MEDS: AMLODIPINE BESYLATE 5 MG TAB PO SCH (09:33)
[2019-08-01] MEDS: METOPROLOL TARTRATE 25 MG TAB PO SCH ×2 (09:33→21:20)
[2019-08-01] MEDS: APIXABAN 5 MG TABLET PO SCH ×2 (09:33→21:21)
[2019-08-01] MEDS ORDERED: LOPERAMIDE HCL 2 MG CAP PO PRN (13:17)
[2019-08-01] MEDS: cefTRIAXone SODIUM 2,000 MG in DEXTROSE 5% 50 ML IV SCH (17:40)
[2019-08-01] MEDS: CYANOCOBALAMIN 500 MCG TABLET (VITAMIN B-12) PO SCH (21:20)
--- NOTE | 2019-08-01 23:02 | Hospitalist Progress Note ---
Date of Service August 01, 2019 Assessment & Plan (1) Vomiting and diarrhea: Patient with one day of n/v/d prior to admission. Possibly viral gastroenteritis vs untreated UTI vs medication effects from Nitrofurantoin. She is afebrile, hemodynamically stable, labs overall unremarkable with mild hypomagnesemia. -Zofran PRN -Currently feeling better in regards to her nausea, still having loose stools. will monitor. It is verly likely that her diarrhea is playing a role with her recurrent urinary tract infection will order immodium (2) UTI (urinary tract infection): Patient with E. coli UTI, still with symptoms despite treatment with three courses of antibiotics. Repeat UA and culture sent -Ceftriaxone 1gm IV daily -Follow cultures: awaiting sensitivities. Patient will followup with Dr. Hinson as an outpatient. (3) Failure of outpatient treatment: As above (4) A-fib: Patient in rate controlled atrial fibrillation, anticoagulated with Eliquis. She vomited up her morning medications -Continue Eliquis -Continue Metoprolol -Continue to monitor (5) Vitamin D deficiency: Chronic. -Hold supplement while inpatient -Patient can continue Vitamin D on discharge (6) Hypertension: Blood pressure stable at present -Continue metoprolol and amlodipine -Continue to monitor Ppx - Continue home Eliquis Code - DNR/DNI per discussion with patient Subjective 78 yo female reports feeling mildly better. She contnues to have dysuria. She reports she has significant diarrhea at home. She has done trial of immodium which does appear to help. She states that her diarrhea is explosive and is messy to clean up. She does try to be proactive with cleaning her frontal genital region as feels like she cleans it well with a top to bottom wipe. Currently she denies any nausea, or vomiting. Review of Systems Review of Systems: All systems reviewed & are unremarkable except as noted in HPI & below Physical Exam 2 Physical Exam: General: patient resting comfortably, NAD, ill in appearance, AA&O x 4 Skin: warm, dry, intact, no rashes or lesions HEENT: NC/AT, PERRL, EOMI, anicteric sclera, conjunctiva without injection, external ear normal to inspection and nontender, nares patent, dry mucus membranes, dentition intact, no oropharyngeal lesions, neck supple, trachea midline, no LAD, no thyromegaly, no JVD Heart: +S1/S2, irregularly irregular, no m/r/g, Port in right anterior chest wall, nontender to palpation, s/p mastectomy Lungs: equal air entry bilaterally, no rales/rhonchi/wheezes Abd: +BS, soft, ND, mild suprapubic tenderness, no masses/organomegaly/ascites Ext: warm, 2+ pulses in UE/LE bilaterally, no clubbing/cyanosis or edema Neuro: nonfocal, patient AA&O x 4, speech intact, no facial droop, moving all extremities on command with equal strength 5/5 Results & Data ([facility]) Vital Signs (Past 12 Hours) Vital Signs Temp Pulse Resp BP Pulse Ox 08/01/19 21:19 79 148/82 H 08/01/19 14:42 36.4 C L 70 18 138/71 97 08/01/19 12:04 36.7 C 64 18 117/66 96 PG Care Time/CCT Total # of Minutes Spent Total Time Spent with Patient: Total time spent is greater than 50% in coordination of care (as documented) at patient's floor/unit and/or counseling patient: Coding Level of Care Code 10448 Subseq Obs Care Lvl 3 Diagnoses Vomiting and diarrhea R11.10; R19.7 UTI (urinary tract infection) N39.0 Hematuria presence: without hematuria Urinary tract infection type: site unspecified Failure of outpatient treatment Z78.9 A-fib I48.91 Atrial fibrillation type: unspecified Vitamin D deficiency E55.9 Hypertension I10 Hypertension type: unspecified Time Spent (min) 45 (1) UTI (urinary tract infection) Hematuria presence: without hematuria Urinary tract infection type: site unspecified Qualified Code(s): N39.0 - Urinary tract infection, site not specified (2) A-fib Atrial fibrillation type: unspecified Qualified Code(s): I48.91 - Unspecified atrial fibrillation (3) Hypertension Hypertension type: unspecified Qualified Code(s): I10 - Essential (primary) hypertension
[2019-08-02] MEDS: ACETAMINOPHEN 325 MG TAB PO PRN (08:03)
[2019-08-02] MEDS: APIXABAN 5 MG TABLET PO SCH (08:04)
[2019-08-02] MEDS: AMLODIPINE BESYLATE 5 MG TAB PO SCH (08:04)
[2019-08-02] MEDS: METOPROLOL TARTRATE 25 MG TAB PO SCH (08:04)
[2019-08-02] MEDS ORDERED: CEFDINIR 300 MG CAP PO SCH (21:00)
--- NOTE | 2019-08-06 23:51 | Discharge Summary ---
Date of Service August 02, 2019 Admission HPI Per Admitting Provider Marilyn An is a pleasant 78yo C female with history of AF on Eliquis, HTN/GERD presenting with multiple complaints. She states she has had a UTI for the last 8-10 weeks. She has persistent dysuria with urinary frequency and urgency. She completed a course of Nitrofurantoin as well as Cipro and is currently taking her second course of Nitrofurantoin. She has some suprapubic discomfort as well as subjective fevers/chills and some sweating. Additionally she is complaining of nausea/vomiting and diarrhea which started last night around 11 PM. She reports 6-7 episodes of non-bloody/non-bilious emesis and watery diarrhea. Her last episode of vomiting and diarrhea was this morning around 08:30. She vomited her morning medications and has been unable to tolerate PO intake. Urine culture from 05/21/19 positive for >100,000 CFU E.coli. Patient with multiple allergies to medication classes typically used to treat UTI. ER Course: Acetaminophen 1gm, Mag oxide 400mg, Mag sulfate 1gm, Zofran 4mg, NSS x 1L Principal Diagnosis UTI (recurrent) Discharge Exam General: patient resting comfortably, NAD, ill in appearance, AA&O x 4 Skin: warm, dry, intact, no rashes or lesions HEENT: NC/AT, PERRL, EOMI, anicteric sclera, conjunctiva without injection, external ear normal to inspection and nontender, nares patent, dry mucus membranes, dentition intact, no oropharyngeal lesions, neck supple, trachea midline, no LAD, no thyromegaly, no JVD Heart: +S1/S2, irregularly irregular rate controlled, no m/r/g, Port in right anterior chest wall, nontender to palpation, s/p mastectomy Lungs: equal air entry bilaterally, no rales/rhonchi/wheezes Abd: +BS, soft, ND, mild suprapubic tenderness, no masses/organomegaly/ascites Ext: warm, 2+ pulses in UE/LE bilaterally, no clubbing/cyanosis or edema Neuro: nonfocal, patient AA&O x 4, speech intact, no facial droop, moving all extremities on command with equal strength 5/5 Discharge Data Allergies Allergy/AdvReac Type Severity Reaction Status Date / Time dexamethasone Allergy Severe Shortness Verified 08/06/19 11:35 of Breath, throat constriction Sulfa (Sulfonamide Allergy Severe HIVES Verified 08/06/19 11:35 Antibiotics) adhesive tape Allergy Intermediate redness, Verified 08/06/19 11:35 irritation, peels skin off amoxicillin Allergy Unknown hives Verified 08/06/19 11:35 azithromycin Allergy Unknown Hives Verified 08/06/19 11:35 [From Zithromax Z-Siddhartha] clavulanic acid Allergy Unknown hives Verified 08/06/19 11:35 meperidine Allergy Unknown HIVES Verified 08/06/19 11:35 Penicillins Allergy Unknown hives Verified 08/06/19 11:35 ciprofloxacin [From Cipro] AdvReac Intermediate Vomiting Verified 08/06/19 11:35 codeine AdvReac Unknown NAUSEA AND Verified 08/06/19 11:35 VOMITING ketorolac AdvReac Unknown 'increased Verified 08/06/19 11:35 bleeding' Consultations 07/31/19 14:06 ED Decision to Admit Stat Ordered Studies 07/31/19 10:53 CT abd pelvis wo con Stat Hospital Course (1) Vomiting and diarrhea: Patient with one day of n/v/d prior to admission. Possibly viral gastroenteritis vs untreated UTI vs medication effects from Nitrofurantoin. She is afebrile, hemodynamically stable, labs overall unremarkable with mild hypomagnesemia. -Zofran PRN -Currently feeling better in regards to her nausea, still having loose stools. will monitor. It is verly likely that her diarrhea is playing a role with her recurrent urinary tract infection will order immodium. On day of discharge: Diarrhea has improved. Patient is ok for discharge. Will recommend followup with Urology as an outpatient. Patient will continue with UTI treatment for now, but wll also continue with Prophylaxis treatment once her treatment regimen has completed. Again, it is likely that her diarrhea is playing a role, and she may benefit from seeing GI. (2) UTI (urinary tract infection): Patient with E. coli UTI, still with symptoms despite treatment with three courses of antibiotics. As noted above. (3) Failure of outpatient treatment: As above (4) A-fib: Patient in rate controlled atrial fibrillation, anticoagulated with Eliquis. She vomited up her morning medications -Continue Eliquis -Continue Metoprolol -Continue to monitor (5) Vitamin D deficiency: Chronic. -Hold supplement while inpatient -Patient can continue Vitamin D on discharge (6) Hypertension: Blood pressure stable at present -Continue metoprolol and amlodipine -Continue to monitor Total Time Total Time Spent Total Time Spent (In Minutes): 32 Total Time Includes: Examination of the Patient, Discharge Planning and Medication Reconciliation Discharge Plan Discharge Items Patient Disposition: Home - Self-Care Reason For Visit: UTI,PO INTOLERANCE Discharge Diagnosis: UTI Activity: Resume your previous activity Non-emergency contact: Primary Care Provider Call non-emergency contact if: you have any medication questions Follow-up/Referrals: Li Miner MD [Primary Care Provider] - Diet: Heart Healthy Addtl Attending Provider Instructions: You have been hospitalized for an acute medical problem. During your stay at [facility], we have made an effort to correct the problem that brought you to the hospital while keeping you as comfortable as possible. Medications were used to bring your condition under control and your discharge instructions will include directions for any medications you should take after leaving the hospital. Please make sure you see your Primary Care Provider as part of your follow up plan. You were found to have a urinary tract infection. It was likely secondary to the diarrhea. Plan is to start the cefdinir twice a day for 4 more days. Once you have finished it, then take the cephalexin once a day. Will recommend followup with Urology as an outpatient. Pending Studies at Discharge: No Stand-Alone Forms: [facility], Smoking Cessation Medications and DC Order Prescriptions: New loperamide 2 mg Capsule 2 mg PO Q4H PRN (Reason: diarrhea) Qty: 30 RF: 0 cephalexin 250 mg tablet 250 mg PO DAILY 30 Days Qty: 30 RF: 0 Continued metoprolol tartrate 25 mg tablet 25 mg PO BID Qty: 180 RF: 3 ondansetron HCl [Zofran] 4 mg tablet 4 mg PO QID PRN (Reason: Nausea) RF: 0 acetaminophen [Tylenol Extra Strength] 500 mg tablet 1,000 mg PO HS PRN (Reason: Pain) RF: 0 furosemide [Lasix] 20 mg tablet 20 mg PO QAM PRN (Reason: Edema) RF: 0 amlodipine [Norvasc] 2.5 mg tablet 2.5 mg PO QAM RF: 0 cinnamon bark 500 mg capsule 1,000 mg PO QAM RF: 0 omega-3 acid ethyl esters 1 gram capsule 1 cap PO QAM RF: 0 cholecalciferol (vitamin D3) 1,000 unit tablet 1,000 units PO QAM RF: 0 calcium carbonate-vitamin D3 [Calcium with Vitamin D] 600 mg(1,500mg) -400 unit tablet 1 tab PO QAM RF: 0 Eliquis 5 mg tablet 5 mg PO BID RF: 0 cyanocobalamin (vitamin B-12) 1,000 mcg capsule 1,000 mcg PO HS RF: 0 Discontinued nitrofurantoin monohyd/m-cryst 100 mg capsule 100 mg PO BID 10 Days Qty: 20 RF: 0 Discharge Orders: Discharge Order (Routine); Ordered 08/02/19 Ordered By: Rene Robertson Admission Data Admit Date/Time: 07/31/19 15:07 Attending Provider: Rene Robertson Admit Provider: Raquel Travis Primary Care Provider: Li Miner Other Providers: Raquel Travis Other Interventions: Discharge Summary Assessment (RN) Last Done: 08/02/19 14:09 DC Date/Time DO NOT enter until pt leaves facility: 08/02/19 15:06 Coding Level of Care Code 88254 OBS Care - Discharge Diagnoses Vomiting and diarrhea R11.10; R19.7 UTI (urinary tract infection) N39.0 Hematuria presence: without hematuria Urinary tract infection type: site unspecified Failure of outpatient treatment Z78.9 A-fib I48.91 Atrial fibrillation type: unspecified Vitamin D deficiency E55.9 Hypertension I10 Hypertension type: unspecified
== END 2019-08-02 15:06 | disposition home or self-care (01) ==
LOC: ED 09:56 → 2N 09:56 → SUATTDRO 15:07 → 2N 16:15 → 4W 08-01 22:28

== ENCOUNTER 2019-12-04 12:03 | Inpatient (IN) ==
--- NOTE | 2019-12-04 12:40 | Emergency Department Note ---
History of Present Illness General Chief complaint: Shortness of Breath/Dyspnea Stated complaint: COVID TEST, SOB Time Seen by Provider: 12/04/19 12:13 Source: patient Mode of arrival: ambulatory Limitations: no limitations History of Present Illness Provider complaint: weakness, sob Onset (ago): day(s) 4 Radiation: non-radiation Maximum Pain Intensity: 2 Current Pain Intensity: 2 Relieved By: + none Exacerbated By: + movement Associated symptoms: + cough, + fever/chills, + malaise, + nausea/vomiting, + shortness of breath and + weakness; no chest pain and no headaches Treatments prior to arrival: none This is a 78-year-old female who presents to the emergency room complaining of 4 days of worsening weakness, fatigue, and now developing fever/chills as well as shortness of breath. Patient states she has been self isolating. Has not been around any known coronavirus positive individuals. Patient has been following with Dr. Sullivan regarding ongoing treatment of her atrial fibrillation and is slated to have repeat cardioversion next week. Patient denies any recent change in medications. States the only person she has had contact with is been her son who brings her groceries. She states he has not been sick. Patient states due to worsening symptoms over the course the last 4 days she went and saw her PCP this morning. She states that the office she had a fever of 100 Fahrenheit. Upon describing her symptoms to her PCP, she was referred here for additional testing. Patient states she has chronic diarrhea and has not noted any changes. No change in her urine. She denies chest pain or abdominal pain. Denies dizziness. Denies any lower extremity edema. Pt seen during a time of high acuity and national emergency pandemic while wearing PPE. Home Medications Home Medications Medication Instructions Recorded Confirmed Type ondansetron HCl 4 mg tablet 4 mg PO QID PRN 01/02/19 12/04/19 History acetaminophen 500 mg tablet 1,000 mg PO HS tab 06/03/19 12/04/19 History amlodipine [Norvasc] 2.5 mg PO QAM 07/08/19 12/04/19 History Eliquis 5 mg PO BID 07/31/19 12/04/19 History calcium carbonate-vitamin D3 1 tab PO QAM 07/31/19 12/04/19 History [Calcium with Vitamin D] cholecalciferol (vitamin D3) 1,000 units PO QAM 07/31/19 12/04/19 History cinnamon bark 1,000 mg PO QAM 07/31/19 12/04/19 History cyanocobalamin (vitamin B-12) 1,000 mcg PO HS 07/31/19 12/04/19 History omega-3 acid ethyl esters 1 cap PO QAM 07/31/19 12/04/19 History metoprolol tartrate 25 mg tablet 25 mg PO BID #180 tab 10/10/19 12/04/19 Rx furosemide 20 mg tablet 40 mg PO QAM PRN #180 tab 10/15/19 12/04/19 Rx loperamide 2 mg capsule 2 mg PO Q4H PRN #30 cap 10/19/19 12/04/19 Rx flecainide 100 mg tablet 100 mg PO Q12H #60 tab 11/20/19 12/04/19 Rx ketoconazole 1 applic TOPICAL DAILY PRN 11/26/19 12/04/19 History mirabegron [Myrbetriq] 50 mg PO QAM 12/04/19 12/04/19 History Allergies Allergy/AdvReac Type Severity Reaction Status Date / Time dexamethasone Allergy Severe Shortness Verified 12/04/19 13:22 of Breath, throat constriction Sulfa (Sulfonamide Allergy Severe HIVES Verified 12/04/19 13:22 Antibiotics) adhesive tape Allergy Intermediate redness, Verified 12/04/19 13:22 irritation, peels skin off amoxicillin Allergy Unknown hives Verified 12/04/19 13:22 azithromycin Allergy Unknown Hives Verified 12/04/19 13:22 [From Zithromax Z-Siddhartha] clavulanic acid Allergy Unknown hives Verified 12/04/19 13:22 meperidine Allergy Unknown HIVES Verified 12/04/19 13:22 Penicillins Allergy Unknown hives Verified 12/04/19 13:22 ciprofloxacin [From Cipro] AdvReac Severe Vomiting Verified 12/04/19 13:22 codeine AdvReac Unknown NAUSEA AND Verified 12/04/19 13:22 VOMITING ketorolac AdvReac Unknown 'increased Verified 12/04/19 13:22 bleeding' Past Med/Surg History Medical History Abnormal EKG Acid reflux disease Anticoagulant long-term use Anxiety no medication Atrial fibrillation Atrial tachycardia Chronic pain of left upper extremity Degenerative disc disease Fungal infection of skin under left breast -- using cream and following with PCP Generalized weakness History of breast cancer right breast cancer History of stroke "minor one" no deficits 2014 Hypertension Lumbar stenosis with neurogenic claudication Lymphoma non-hodgkin lymphoma 2017 Nephrolithiasis Osteoarthritis Peripheral neuropathy Port-A-Cath in place Recurrent UTI Rosacea Scoliosis Spinal stenosis Stage 3 chronic kidney disease monitoring Thyroid nodule Urinary tract infection Vitamin D deficiency Surgical History H/O colonoscopy H/O dilation and curettage multiple H/O: hysterectomy EVELIA History of appendectomy with hysterectomy History of back surgery lumbar fusion History of bladder surgery bladder tack History of bronchoscopy History of cardioversion 07/2019 History of esophagogastroduodenoscopy (EGD) History of lobectomy of lung Left upper lobe r/t nodule (granuloma) History of mastectomy right with lymph node removal History of tonsillectomy Nausea and vomiting after administration of anesthetic agent S/P cervical spinal fusion x2 (1970's) unsure of levels. Full ROM S/P cholecystectomy S/P thyroid biopsy negative Family History Mother Coronary heart disease Cancer Atrial fibrillation Father Coronary heart disease Myocardial infarction Cancer Aunt Cancer Other No family history of adverse response to anesthesia Stroke Denies family history of Ovarian cancer Kidney disease Colorectal cancer Social History Preferred Language: Arabic Communication Ability: Effective Show Host/Hostess Required: No Beliefs That Will Affect Care: None marital status: / Current Living Situation: Alone Other Information That Helps Us Care for You: No Feels Safe at Home: Yes Safety Concerns: Feels Safe At This Time Smoking Status: Never smoker Second Hand Exposure: Yes (hx) ; Hx Alcohol Use: No Hx Substance Use: No Review of Systems See HPI for pertinent positives & negatives. and A total of 10 systems reviewed and were otherwise negative Physical Exam Vital Signs Vital Signs - 24 hr 12/04/19 12:08 12/04/19 12:25 12/04/19 12:30 Temperature 37.1 C Temperature Source Oral Pulse Rate 89 83 78 Pulse Rate from SpO2 Sensor 81 82 Respiratory Rate 20 17 18 Respiratory Effort / Characteristics Non-Labored Spontaneous Respiratory Depth Normal Respiratory Pattern Regular Blood Pressure 113/78 127/76 Blood Pressure Mean 89 86 Pulse Oximetry 96 98 96 Oxygen Delivery Method Room Air Sepsis Recent Fever Within 48 Hours Yes Sepsis New/Unexplained Change in Mental Status No Sepsis Action Taken by Nursing No Action Required 12/04/19 12:31 12/04/19 12:33 12/04/19 12:38 Temperature Temperature Source Pulse Rate 75 72 Pulse Rate from SpO2 Sensor 71 Respiratory Rate 18 24 Respiratory Effort / Characteristics Respiratory Depth Respiratory Pattern Blood Pressure Blood Pressure Mean Pulse Oximetry 95 94 93 Oxygen Delivery Method Room Air Room Air Sepsis Recent Fever Within 48 Hours Sepsis New/Unexplained Change in Mental Status Sepsis Action Taken by Nursing 12/04/19 13:00 12/04/19 13:02 12/04/19 13:17 Temperature Temperature Source Pulse Rate 73 79 Pulse Rate from SpO2 Sensor 75 80 Respiratory Rate 14 19 Respiratory Effort / Characteristics Spontaneous Labored Respiratory Depth Normal Respiratory Pattern Agonal Blood Pressure 123/68 Blood Pressure Mean 101 Pulse Oximetry 96 94 Oxygen Delivery Method Room Air Sepsis Recent Fever Within 48 Hours Sepsis New/Unexplained Change in Mental Status Sepsis Action Taken by Nursing 12/04/19 13:30 12/04/19 14:00 12/04/19 14:30 Temperature Temperature Source Pulse Rate 72 78 76 Pulse Rate from SpO2 Sensor 76 75 77 Respiratory Rate 20 20 18 Respiratory Effort / Characteristics Respiratory Depth Respiratory Pattern Blood Pressure 137/69 139/73 131/69 Blood Pressure Mean 80 81 94 Pulse Oximetry 94 93 96 Oxygen Delivery Method Room Air Sepsis Recent Fever Within 48 Hours Sepsis New/Unexplained Change in Mental Status Sepsis Action Taken by Nursing 12/04/19 15:00 12/04/19 15:30 Temperature Temperature Source Pulse Rate 70 79 Pulse Rate from SpO2 Sensor 73 81 Respiratory Rate 20 20 Respiratory Effort / Characteristics Respiratory Depth Respiratory Pattern Blood Pressure 128/79 144/70 H Blood Pressure Mean 107 97 Pulse Oximetry 95 96 Oxygen Delivery Method Sepsis Recent Fever Within 48 Hours Sepsis New/Unexplained Change in Mental Status Sepsis Action Taken by Nursing GENERAL: alert, ill appearing, well nourished, no distress, non-toxic EYE EXAM: normal conjunctiva, PERRL and EOM's grossly intact OROPHARYNX: no exudate, no erythema, lips, buccal mucosa, and tongue normal and mucous membranes are moist NECK: supple, no nuchal rigidity, no adenopathy, non-tender LUNGS: Clear to auscultation. Normal chest wall mechanics, no w/r/r HEART: no murmurs, S1 normal and S2 normal ABDOMEN: abdomen soft, non-tender, normo-active bowel sounds, no masses, no rebound or guarding. BACK: Back is symmetrical on inspection and there is no deformity, no midline tenderness, no CVA tenderness. SKIN: no rashes and no bruising UPPER EXTREMITIES: upper extremities are grossly normal. FROM, nml pulses b/l. LOWER EXTREMITIES: No pitting edema. FROM, nml pulses b/l. NEURO EXAM: Normal sensorium, cranial nerves II-XII grossly intact, normal speech, no gross weakness of arms, no gross weakness of legs. Gross sensation intact. Course Course 1535: Per nursing report patient significantly tachypneic with increased work of breathing as well as tachycardic with ambulation. Patient's oxygen saturations dropped to 90% just and walking to the bathroom. Patient complained of being increasingly short of breath with this exertion. Symptoms improved after rest for several minutes. 1626: Case discussed with Dr. Davalos for additional inpatient evaluation. Administered Medications Acetaminophen (Tylenol) 1,000 mg PO [facility] Stop: 01/03/20 20:59 Last Admin: 12/04/19 21:38 Dose: 1,000 mg Documented by: [id number] Acetaminophen (Tylenol) 650 mg PO Q4H PRN PRN Reason: Pain or Fever Stop: 01/03/20 20:19 Last Admin: 12/05/19 17:43 Dose: 650 mg Documented by: [id number] Amlodipine Besylate (Norvasc) 2.5 mg PO QAM [facility] Stop: 01/04/20 08:59 Last Admin: 12/05/19 08:06 Dose: 2.5 mg Documented by: [id number] Apixaban (Eliquis) 5 mg PO BID [facility] Stop: 01/03/20 20:59 Last Admin: 12/05/19 08:04 Dose: 5 mg Documented by: [id number] Admin: 12/04/19 21:39 Dose: 5 mg Documented by: [id number] Cyanocobalamin (Vitamin B-12) 1,000 mcg PO [facility] Stop: 01/03/20 20:59 Last Admin: 12/04/19 21:39 Dose: 1,000 mcg Documented by: [id number] Fish Oil (Warren-3 (Purified Fish Oil)) 1 gm PO QAM [facility] Stop: 01/04/20 08:59 Last Admin: 12/05/19 08:04 Dose: 1 gm Documented by: [id number] Flecainide Acetate (Tambocor) 100 mg PO Q12H [facility] Stop: 01/03/20 20:59 Last Admin: 12/05/19 08:04 Dose: 100 mg Documented by: [id number] Admin: 12/04/19 21:39 Dose: 100 mg Documented by: [id number] Ceftriaxone Sodium 2,000 mg/ (Dextrose) 70 mls @ 100 mls/hr IV Q24H [facility]; Protocol Stop: 12/10/19 17:59 Last Infusion: 12/05/19 18:20 Dose: 0 mls/hr Documented by: [id number] Admin: 12/05/19 17:38 Dose: 100 mls/hr Documented by: [id number] Doxycycline Hyclate 100 mg/ (Dextrose) 110 mls @ 50 mls/hr IV Q12H [facility] Stop: 12/18/19 20:59 Last Infusion: 12/05/19 10:19 Dose: 0 mls/hr Documented by: [id number] Admin: 12/05/19 08:01 Dose: 50 mls/hr Documented by: [id number] Infusion: 12/04/19 23:51 Dose: 0 mls/hr Documented by: [id number] Admin: 12/04/19 21:32 Dose: 50 mls/hr Documented by: [id number] Potassium Chloride/Sodium Chloride (Normal Saline W/20 Meq Kcl) 20 meq in 1,000 mls @ 80 mls/hr IV .[id number] [facility] Stop: 01/03/20 20:59 Last Admin: 12/05/19 10:55 Dose: 80 mls/hr Documented by: [id number] Infusion: 12/05/19 10:02 Dose: 80 mls/hr Documented by: [id number] Admin: 12/04/19 21:32 Dose: 80 mls/hr Documented by: [id number] Ketoconazole (Nizoral 2%) 1 appln EXT DAILY [facility] Stop: 12/15/19 08:59 Last Admin: 12/05/19 08:06 Dose: 1 appln Documented by: [id number] Loperamide HCl (Imodium) 2 mg PO Q4H PRN PRN Reason: diarrhea Stop: 01/03/20 20:19 Last Admin: 12/05/19 12:04 Dose: 2 mg Documented by: [id number] Metoprolol Tartrate (Lopressor) 25 mg PO BID [facility] Stop: 01/03/20 20:59 Last Admin: 12/05/19 08:05 Dose: 25 mg Documented by: [id number] Admin: 12/04/19 21:38 Dose: 25 mg Documented by: [id number] Mirabegron (Myrbetriq Er) 50 mg PO [facility] Stop: 01/04/20 08:59 Last Admin: 12/05/19 08:05 Dose: 50 mg Documented by: [id number] Multivitamins/Minerals (Caltrate Plus) 1 tab PO [facility] Stop: 01/04/20 08:59 Last Admin: 12/05/19 08:05 Dose: 1 tab Documented by: [id number] Ondansetron HCl (Zofran) 4 mg IV Q6H PRN PRN Reason: Nausea Stop: 01/03/20 20:19 Last Admin: 12/05/19 08:04 Dose: 4 mg Documented by: [id number] Vitamin D (Vitamin D3) 1,000 units PO [facility] Stop: 01/04/20 08:59 Last Admin: 12/05/19 08:05 Dose: 1,000 units Documented by: [id number] Discontinued Medications Sodium Chloride (Nss 1000ml) 1,000 mls @ 125 mls/hr IV .Q8H [facility] Stop: 01/03/20 12:44 Last Infusion: 12/04/19 21:31 Dose: 0 mls/hr Documented by: [id number] Admin: 12/04/19 13:06 Dose: 125 mls/hr Documented by: [id number] Ceftriaxone Sodium (Rocephin) 2,000 mg in 70 mls @ 140 mls/hr IV NOW STA Stop: 12/04/19 17:02 Last Infusion: 12/04/19 17:45 Dose: 0 mls/hr Documented by: [id number] Admin: 12/04/19 17:15 Dose: 140 mls/hr Documented by: [id number] Medical Decision Making Differential Diagnosis Differential Diagnosis includes but is not limited to dehydration, stroke, anemia, hypoglycemia, hyponatremia, hypernatremia, urinary tract infection, pneumonia, bronchitis, sepsis, gastroenteritis, additional abdominal pathology, metabolic abnormalities, pneumonia, bronchitis, COPD/Asthma exacerbation, pneumothorax, pulmonary embolism, congestive heart failure, acute coronary syndrome. Medical Records Attestation: I reviewed the patient's medical records. Home Medications Current Medication List: was personally reviewed by me Laboratory Data Attestation: I reviewed the patient's lab results. Result diagrams: 12/05/19 08:28 12/05/19 08:28 Lab Results 12/04/19 12/04/19 12/04/19 Range/Units 13:07 13:07 13:07 WBC 6.18 (4.8-10.8) K/uL RBC 3.80 L (4.2-5.4) M/uL Hgb 12.2 (12.0-16.0) g/dL Hct 36.5 L (37-47) % MCV 96.1 (80-100) fL MCH 32.1 (25-34) pg MCHC 33.4 (32-36) g/dL RDW Std Deviation 48.6 H (36.4-46.3) fL RDW Coeff of Zackary 13.9 (11.5-14.5) % Plt Count 113 L (130-400) K/uL MPV 9.8 (7.4-10.4) fL Immature Gran % (Auto) 0.2 % Neut % (Auto) 67.9 % Lymph % (Auto) 19.7 % [place] % (Auto) 10.7 % Eos % (Auto) 1.3 % Baso % (Auto) 0.2 % Immature Gran # (Auto) 0.01 (0.00-0.02) K/uL Neut # (Auto) 4.20 (1.4-6.5) K/uL Lymph # (Auto) 1.22 (1.2-3.4) K/uL [place] # (Auto) 0.66 H (0.11-0.59) K/uL Eos # (Auto) 0.08 (0-0.5) K/uL Baso # (Auto) 0.01 (0-0.2) K/uL Absolute Nucleated RBC 0.00 (0-0) K/uL Nucleated RBC % (auto) 0.0 % ESR (0-21) mm/hr PT 12.1 H (9.0-12.0) Seconds INR 1.2 H (0.9-1.1) APTT 35.4 H (21.0-31.0) Seconds PTT Ratio 1.3 D-Dimer (0-500) ug/L FEU Sodium 134 L (136-145) mmol/L Potassium 3.6 (3.5-5.1) mmol/L Chloride 102 (98-107) mmol/L Carbon Dioxide 25 (21-32) mmol/L Anion Gap 7.0 (3-11) BUN 18 (7-18) mg/dl Creatinine 1.23 H (0.6-1.2) mg/dl Est Cr Clr Drug Dosing 40.3 ml/min Est GFR ( Amer) 48.3 Est GFR (Non-Af Amer) 41.7 BUN/Creatinine Ratio 14.8 (10-20) Glucose 117 H (70-99) mg/dl Lactate (0.4-2.0) mmol/L Calcium 9.0 (8.5-10.1) mg/dl Magnesium 1.8 (1.8-2.4) mg/dl Total Bilirubin 0.9 (0.2-1) mg/dl AST 64 H (15-37) U/L ALT 40 (12-78) U/L Alkaline Phosphatase 99 (45-117) U/L Troponin I < 0.015 (0-0.045) ng/ml C-Reactive Protein (0-0.29) mg/dl Total Protein 6.8 (6.4-8.2) gm/dl Albumin 3.4 (3.4-5.0) gm/dl Globulin 3.4 (2.5-4.0) gm/dl Albumin/Globulin Ratio 1.0 (0.9-2) Procalcitonin (0-0.5) ng/ml Urine Color Urine Appearance (Clear) Urine pH (4.5-7.5) Ur Specific [place] (1.000-1.030) Urine Protein (Negative) Urine Glucose (UA) (Negative) Urine Ketones (Negative) Urine Blood (Negative) Urine Nitrite (Negative) Urine Bilirubin (Negative) Urine Urobilinogen (Negative) Ur Leukocyte Esterase (Negative) Lyme Disease IgG Ab (Negative) Lyme Disease IgM Ab (Negative) Influenza Type A (PCR) (Neg) Influenza Type B (PCR) (Neg) SARS-CoV-2 RNA (RT-PCR) (Negative) 12/04/19 12/04/19 12/04/19 Range/Units 13:07 13:07 13:07 WBC (4.8-10.8) K/uL RBC (4.2-5.4) M/uL Hgb (12.0-16.0) g/dL Hct (37-47) % MCV (80-100) fL MCH (25-34) pg MCHC (32-36) g/dL RDW Std Deviation (36.4-46.3) fL RDW Coeff of Zackary (11.5-14.5) % Plt Count (130-400) K/uL MPV (7.4-10.4) fL Immature Gran % (Auto) % Neut % (Auto) % Lymph % (Auto) % [place] % (Auto) % Eos % (Auto) % Baso % (Auto) % Immature Gran # (Auto) (0.00-0.02) K/uL Neut # (Auto) (1.4-6.5) K/uL Lymph # (Auto) (1.2-3.4) K/uL [place] # (Auto) (0.11-0.59) K/uL Eos # (Auto) (0-0.5) K/uL Baso # (Auto) (0-0.2) K/uL Absolute Nucleated RBC (0-0) K/uL Nucleated RBC % (auto) % ESR (0-21) mm/hr PT (9.0-12.0) Seconds INR (0.9-1.1) APTT (21.0-31.0) Seconds PTT Ratio D-Dimer 220 (0-500) ug/L FEU Sodium (136-145) mmol/L Potassium (3.5-5.1) mmol/L Chloride (98-107) mmol/L Carbon Dioxide (21-32) mmol/L Anion Gap (3-11) BUN (7-18) mg/dl Creatinine (0.6-1.2) mg/dl Est Cr Clr Drug Dosing ml/min Est GFR ( Amer) Est GFR (Non-Af Amer) BUN/Creatinine Ratio (10-20) Glucose (70-99) mg/dl Lactate 2.2 H* (0.4-2.0) mmol/L Calcium (8.5-10.1) mg/dl Magnesium (1.8-2.4) mg/dl Total Bilirubin (0.2-1) mg/dl AST (15-37) U/L ALT (12-78) U/L Alkaline Phosphatase (45-117) U/L Troponin I (0-0.045) ng/ml C-Reactive Protein (0-0.29) mg/dl Total Protein (6.4-8.2) gm/dl Albumin (3.4-5.0) gm/dl Globulin (2.5-4.0) gm/dl Albumin/Globulin Ratio (0.9-2) Procalcitonin 0.20 (0-0.5) ng/ml Urine Color Urine Appearance (Clear) Urine pH (4.5-7.5) Ur Specific [place] (1.000-1.030) Urine Protein (Negative) Urine Glucose (UA) (Negative) Urine Ketones (Negative) Urine Blood (Negative) Urine Nitrite (Negative) Urine Bilirubin (Negative) Urine Urobilinogen (Negative) Ur Leukocyte Esterase (Negative) Lyme Disease IgG Ab (Negative) Lyme Disease IgM Ab (Negative) Influenza Type A (PCR) (Neg) Influenza Type B (PCR) (Neg) SARS-CoV-2 RNA (RT-PCR) (Negative) 12/04/19 12/04/19 12/04/19 Range/Units 13:07 13:07 13:07 WBC (4.8-10.8) K/uL RBC (4.2-5.4) M/uL Hgb (12.0-16.0) g/dL Hct (37-47) % MCV (80-100) fL MCH (25-34) pg MCHC (32-36) g/dL RDW Std Deviation (36.4-46.3) fL RDW Coeff of Zackary (11.5-14.5) % Plt Count (130-400) K/uL MPV (7.4-10.4) fL Immature Gran % (Auto) % Neut % (Auto) % Lymph % (Auto) % [place] % (Auto) % Eos % (Auto) % Baso % (Auto) % Immature Gran # (Auto) (0.00-0.02) K/uL Neut # (Auto) (1.4-6.5) K/uL Lymph # (Auto) (1.2-3.4) K/uL [place] # (Auto) (0.11-0.59) K/uL Eos # (Auto) (0-0.5) K/uL Baso # (Auto) (0-0.2) K/uL Absolute Nucleated RBC (0-0) K/uL Nucleated RBC % (auto) % ESR 14 (0-21) mm/hr PT (9.0-12.0) Seconds INR (0.9-1.1) APTT (21.0-31.0) Seconds PTT Ratio D-Dimer (0-500) ug/L FEU Sodium (136-145) mmol/L Potassium (3.5-5.1) mmol/L Chloride (98-107) mmol/L Carbon Dioxide (21-32) mmol/L Anion Gap (3-11) BUN (7-18) mg/dl Creatinine (0.6-1.2) mg/dl Est Cr Clr Drug Dosing ml/min Est GFR ( Amer) Est GFR (Non-Af Amer) BUN/Creatinine Ratio (10-20) Glucose (70-99) mg/dl Lactate (0.4-2.0) mmol/L Calcium (8.5-10.1) mg/dl Magnesium (1.8-2.4) mg/dl Total Bilirubin (0.2-1) mg/dl AST (15-37) U/L ALT (12-78) U/L Alkaline Phosphatase (45-117) U/L Troponin I (0-0.045) ng/ml C-Reactive Protein 0.30 H (0-0.29) mg/dl Total Protein (6.4-8.2) gm/dl Albumin (3.4-5.0) gm/dl Globulin (2.5-4.0) gm/dl Albumin/Globulin Ratio (0.9-2) Procalcitonin (0-0.5) ng/ml Urine Color Urine Appearance (Clear) Urine pH (4.5-7.5) Ur Specific [place] (1.000-1.030) Urine Protein (Negative) Urine Glucose (UA) (Negative) Urine Ketones (Negative) Urine Blood (Negative) Urine Nitrite (Negative) Urine Bilirubin (Negative) Urine Urobilinogen (Negative) Ur Leukocyte Esterase (Negative) Lyme Disease IgG Ab Negative (Negative) Lyme Disease IgM Ab Negative (Negative) Influenza Type A (PCR) (Neg) Influenza Type B (PCR) (Neg) SARS-CoV-2 RNA (RT-PCR) (Negative) 12/04/19 12/04/19 12/04/19 Range/Units 13:08 13:08 15:39 WBC (4.8-10.8) K/uL RBC (4.2-5.4) M/uL Hgb (12.0-16.0) g/dL Hct (37-47) % MCV (80-100) fL MCH (25-34) pg MCHC (32-36) g/dL RDW Std Deviation (36.4-46.3) fL RDW Coeff of Zackary (11.5-14.5) % Plt Count (130-400) K/uL MPV (7.4-10.4) fL Immature Gran % (Auto) % Neut % (Auto) % Lymph % (Auto) % [place] % (Auto) % Eos % (Auto) % Baso % (Auto) % Immature Gran # (Auto) (0.00-0.02) K/uL Neut # (Auto) (1.4-6.5) K/uL Lymph # (Auto) (1.2-3.4) K/uL [place] # (Auto) (0.11-0.59) K/uL Eos # (Auto) (0-0.5) K/uL Baso # (Auto) (0-0.2) K/uL Absolute Nucleated RBC (0-0) K/uL Nucleated RBC % (auto) % ESR (0-21) mm/hr PT (9.0-12.0) Seconds INR (0.9-1.1) APTT (21.0-31.0) Seconds PTT Ratio D-Dimer (0-500) ug/L FEU Sodium (136-145) mmol/L Potassium (3.5-5.1) mmol/L Chloride (98-107) mmol/L Carbon Dioxide (21-32) mmol/L Anion Gap (3-11) BUN (7-18) mg/dl Creatinine (0.6-1.2) mg/dl Est Cr Clr Drug Dosing ml/min Est GFR ( Amer) Est GFR (Non-Af Amer) BUN/Creatinine Ratio (10-20) Glucose (70-99) mg/dl Lactate 1.2 (0.4-2.0) mmol/L Calcium (8.5-10.1) mg/dl Magnesium (1.8-2.4) mg/dl Total Bilirubin (0.2-1) mg/dl AST (15-37) U/L ALT (12-78) U/L Alkaline Phosphatase (45-117) U/L Troponin I (0-0.045) ng/ml C-Reactive Protein (0-0.29) mg/dl Total Protein (6.4-8.2) gm/dl Albumin (3.4-5.0) gm/dl Globulin (2.5-4.0) gm/dl Albumin/Globulin Ratio (0.9-2) Procalcitonin (0-0.5) ng/ml Urine Color Urine Appearance (Clear) Urine pH (4.5-7.5) Ur Specific [place] (1.000-1.030) Urine Protein (Negative) Urine Glucose (UA) (Negative) Urine Ketones (Negative) Urine Blood (Negative) Urine Nitrite (Negative) Urine Bilirubin (Negative) Urine Urobilinogen (Negative) Ur Leukocyte Esterase (Negative) Lyme Disease IgG Ab (Negative) Lyme Disease IgM Ab (Negative) Influenza Type A (PCR) Neg for Influ A (Neg) Influenza Type B (PCR) Neg for Influ B (Neg) SARS-CoV-2 RNA (RT-PCR) NEGATIVE (Negative) 12/04/19 Range/Units 15:50 WBC (4.8-10.8) K/uL RBC (4.2-5.4) M/uL Hgb (12.0-16.0) g/dL Hct (37-47) % MCV (80-100) fL MCH (25-34) pg MCHC (32-36) g/dL RDW Std Deviation (36.4-46.3) fL RDW Coeff of Zackary (11.5-14.5) % Plt Count (130-400) K/uL MPV (7.4-10.4) fL Immature Gran % (Auto) % Neut % (Auto) % Lymph % (Auto) % [place] % (Auto) % Eos % (Auto) % Baso % (Auto) % Immature Gran # (Auto) (0.00-0.02) K/uL Neut # (Auto) (1.4-6.5) K/uL Lymph # (Auto) (1.2-3.4) K/uL [place] # (Auto) (0.11-0.59) K/uL Eos # (Auto) (0-0.5) K/uL Baso # (Auto) (0-0.2) K/uL Absolute Nucleated RBC (0-0) K/uL Nucleated RBC % (auto) % ESR (0-21) mm/hr PT (9.0-12.0) Seconds INR (0.9-1.1) APTT (21.0-31.0) Seconds PTT Ratio D-Dimer (0-500) ug/L FEU Sodium (136-145) mmol/L Potassium (3.5-5.1) mmol/L Chloride (98-107) mmol/L Carbon Dioxide (21-32) mmol/L Anion Gap (3-11) BUN (7-18) mg/dl Creatinine (0.6-1.2) mg/dl Est Cr Clr Drug Dosing ml/min Est GFR ( Amer) Est GFR (Non-Af Amer) BUN/Creatinine Ratio (10-20) Glucose (70-99) mg/dl Lactate (0.4-2.0) mmol/L Calcium (8.5-10.1) mg/dl Magnesium (1.8-2.4) mg/dl Total Bilirubin (0.2-1) mg/dl AST (15-37) U/L ALT (12-78) U/L Alkaline Phosphatase (45-117) U/L Troponin I (0-0.045) ng/ml C-Reactive Protein (0-0.29) mg/dl Total Protein (6.4-8.2) gm/dl Albumin (3.4-5.0) gm/dl Globulin (2.5-4.0) gm/dl Albumin/Globulin Ratio (0.9-2) Procalcitonin (0-0.5) ng/ml Urine Color Yellow Urine Appearance Slightly Cloudy (Clear) Urine pH 6.0 (4.5-7.5) Ur Specific [place] 1.025 (1.000-1.030) Urine Protein 1+ H (Negative) Urine Glucose (UA) Negative (Negative) Urine Ketones Negative (Negative) Urine Blood 2+ H (Negative) Urine Nitrite Negative (Negative) Urine Bilirubin Negative (Negative) Urine Urobilinogen Negative (Negative) Ur Leukocyte Esterase 3+ H (Negative) Lyme Disease IgG Ab (Negative) Lyme Disease IgM Ab (Negative) Influenza Type A (PCR) (Neg) Influenza Type B (PCR) (Neg) SARS-CoV-2 RNA (RT-PCR) (Negative) Imaging Data Radiologist's Impression: XR chest 1V portable HISTORY: SEPSIS COMPARISON: Chest 06/03/2019. FINDINGS: No pneumothorax. No pleural effusions. The heart remains mildly enlarged. Stable linear scarlike density and suture material within the left m idlung zone. No new lung consolidations to suggest pneumonia. No evidence for pulmonary edema. There are posterior fusion hardware seen within the lower thoracic and lumbar spine. Surgical clips within the right upper quadrant and right axilla. Left subclavian Port-A-Cath terminates at the right atrium, unchanged. IMPRESSION: No significant change compared to the prior study. No acute process. ACT 112: Negative or not required by law. Electronically signed by: Braxton Capps M.D. 12/04/2019 1:35 PM Blood Pressure Blood Pressure Findings: Elevated blood pressure Blood Pressure Disposition: further management by hospitalist MDM Narrative 78-year-old female who presents due to complaints of increased weakness as well as shortness of breath with exertion. Patient found to have evolving urinary tract infection, which may explain some of her generalized symptoms, however patient was obviously short of breath, tachypneic, tachycardic with any exertion. Upon seeing this a d-dimer was added. PE less likely given anticoagulation of atrial fibrillation. COVID testing was added. There were no obvious infiltrates or effusions on the patient's chest x-ray. Patient does have atrial fibrillation and is scheduled to undergo additional cardioversion, is unclear if this may be a contributing factor to her dyspnea on exertion. Case was discussed with hospitalist for additional evaluation as a precaution. Patient was started on IV antibiotics while in the emergency room. I did review the patient's prior cultures prior to initiation of IV antibiotics. An order was placed for continuous cardiac monitoring. The monitor shows a rate of 72_ with atrial fibrillation rhythm. Impression & Plan Generalized weakness, Atrial fibrillation, MANE (dyspnea on exertion), Acute UTI (urinary tract infection), Abnormal LFTs Discharge Plan Visit Data *Final* Discharge Date/Time: 12/04/19 19:11 Chief Complaint: Shortness of Breath/Dyspnea Stated Complaint: COVID TEST, SOB ED Provider: Kerline Lopez Discharge Problem: Generalized weakness, Atrial fibrillation, MANE (dyspnea on exertion), Acute UTI (urinary tract infection), Abnormal LFTs Patient Disposition: Admitted As Inpatient Discharge Instructions Interventions: ED Discharge Assessment Last Done: 12/04/19 19:11 Discharge Problem: Atrial fibrillation Qualifiers: Atrial fibrillation type: unspecified Qualified Code(s): I48.91 - Unspecified atrial fibrillation
[2019-12-04] MEDS ORDERED: SODIUM CHLORIDE 0.9% 1000ML 1,000 ML IV SCH (12:45)
[2019-12-04 13:32] LABS: Basophils # (auto) 0.01 K/uL (0-0.2); Basophils % (auto) 0.2 %; Eosinophils # (auto) 0.08 K/uL (0-0.5); Eosinophils % (auto) 1.3 %; Hematocrit (blood only) 36.5 % (37-47); Hemoglobin 12.2 g/dL (12.0-16.0); Immature Granulocytes # (auto) 0.01 K/uL (0.00-0.02); Immature Granulocytes % (auto) 0.2 %; Lymphocytes # (auto) 1.22 K/uL (1.2-3.4); Lymphocytes % (auto) 19.7 %; Mean Corpuscular Hemoglobin 32.1 pg (25-34); Mean Corpuscular Hgb Conc 33.4 g/dL (32-36); Mean Corpuscular Volume 96.1 fL (80-100); Mean Platelet Volume 9.8 fL (7.4-10.4); Monocytes # (auto) 0.66 K/uL (0.11-0.59); Monocytes % (auto) 10.7 %; Neutrophils % (auto) 67.9 %; Platelet Count 113 K/uL (130-400); RDW Coefficient of Variation 13.9 % (11.5-14.5); RDW Standard Deviation 48.6 fL (36.4-46.3); White Blood Count 6.18 K/uL (4.8-10.8)
--- NOTE | 2019-12-04 13:37 | XRay Report ---
XR chest 1V portable HISTORY: SEPSIS COMPARISON: Chest 06/03/2019. FINDINGS: No pneumothorax. No pleural effusions. The heart remains mildly enlarged. Stable linear sca rlike density and suture material within the left midlung zone. No new lung consolidations to suggest pneumonia. No evidence for pulmonary edema. There are posterior fusion hardware seen within the lowe r thoracic and lumbar spine. Surgical clips within the right upper quadrant and right axilla. Left newton bclavian Port-A-Cath terminates at the right atrium, unchanged. IMPRESSION: No significant change compared to the prior study. No acute process. ACT 112: Negative or not required by law. Electronically signed by: Braxton Capps M.D. 12/04/2019 1:35 PM
[2019-12-04 13:52] LABS: INR 1.2 (0.9-1.1); Partial Thromboplastin Ratio 1.3; Partial Thromboplastin Time 35.4 Seconds (21.0-31.0); Prothrombin Time 12.1 Seconds (9.0-12.0)
[2019-12-04 13:55] LABS: Alanine Aminotransferase 40 U/L (12-78); Albumin Level 3.4 gm/dl (3.4-5.0); Aspartate Aminotransferase 64 U/L (15-37); BUN Creatinine Ratio 14.8 (10-20); Blood Urea Nitrogen 18 mg/dl (7-18); Carbon Dioxide 25 mmol/L (21-32); Chloride 102 mmol/L (98-107); Creatinine Clr Calc Pharmacy 40.3 ml/min; Est GFR (African American) 48.3; Est GFR (Non-African American) 41.7; Glucose 117 mg/dl (70-99); Magnesium 1.8 mg/dl (1.8-2.4); Potassium 3.6 mmol/L (3.5-5.1); Sodium 134 mmol/L (136-145)
[2019-12-04 13:58] LABS: Influenza A virus by PCR Neg for Influ A (Neg); Influenza B virus by PCR Neg for Influ B (Neg)
[2019-12-04 13:59] LABS: Alkaline Phosphatase 99 U/L (45-117); Bilirubin,Total 0.9 mg/dl (0.2-1); Globulin 3.4 gm/dl (2.5-4.0); Total Protein 6.8 gm/dl (6.4-8.2); Troponin I < 0.015 ng/ml (0-0.045)
[2019-12-04 16:03] LABS: Appearance Urine Slightly Cloudy (Clear); Bilirubin Urine Negative (Negative); Blood Urine 2+ (Negative); Glucose Urine UA Negative (Negative); Ketones Urine Negative (Negative); Leukocyte Esterase Urine 3+ (Negative); Nitrite Urine Negative (Negative); Protein Urine 1+ (Negative); Specific Gravity Urine 1.025 (1.000-1.030); Urobilinogen Urine Negative (Negative)
[2019-12-04 16:08] LABS: Color Urine Yellow
[2019-12-04] MEDS ORDERED: cefTRIAXone SODIUM 2,000 MG/70 ML BAG IV STA (16:33)
--- NOTE | 2019-12-04 16:59 | History & Physical Report ---
Date of Service December 04, 2019 Assessment & Plan (1) Dyspnea on exertion: She had dyspnea on exertion documented back to cardiology visits since at least mid September, with cardiac work-up to include dobutamine stress echo which was negative for inducible ischemia, and had increased dose of Lasix with volume removal without much improvement. She does have a history of left upper lobectomy for granuloma. She also has a history of radiation therapy to the left axilla for her lymphoma. Her chest x-ray here did not show any evidence of pulmonary edema or pneumonia, no pneumothorax. Her d-dimer was negative making PE not likely at all. Her troponin was negative despite some T wave inversions in the lateral leads that were new on ECG. And again, she had a negative dobutamine stress test just 2 weeks ago with preserved ejection fraction. Cardiology thought that her dyspnea on exertion may be from her inability to tolerate atrial fibrillation. Her rates did go up into the 120s with minimal exertion here in the ER. Her febrile illness may be exacerbating her dyspnea due to mild dehydration and causing worsening tachycardia. Given the fever, COVID 19 testing has been performed and is pending-this test was sent out to [facility] in [place] and hopefully will turn around in the next 24 hours or so -Maintain COVID isolation precautions in the meantime Flu swab is negative She is not requiring oxygen and she has no wheezing on examination -Cardiology has plans to electrically cardiovert her this coming Saturday if she does not chemically convert on flecainide prior to that. The flecainide was just started on 11/19 -We will hydrate gently with IV fluids overnight -Treating for febrile illness as below -Will follow pulse ox and treat with supplemental O2 as needed to keep pulse ox greater than 92% (2) Fever: With a reported fever of 100 degrees at her PCP office today Afebrile here She has been having myalgias and worsening arthralgias the last 2 days along with a mild headache. Urinalysis is suspect for UTI although she has chronic urinary incontinence and urgency-difficult for her to say that this is any different than before Tickborne illness is a possibility given mild thrombocytopenia and elevated transaminase COVID 19 is a possibility although she is really been isolated except to go out for doctor's appointments Chest x-ray is negative for pneumonia and she has no other signs or symptoms of other illness Flu swab is negative Lactate is mildly elevated and came down with IV fluid hydration. ESR is normal for her age at 13, and CRP is only minimally elevated at 0.3. Her procalcitonin is normal at 0.2, and LDH is normal at 211 She does have a port in place but it does not appear infected at this time -Continue IV Rocephin for UTI and follow urine culture -Follow blood cultures -Check Lyme disease titer, peripheral smear to look for anaplasmosis, and Anaplasma DNA PCR -Start doxycycline 100 mg IV every 12 hours in case of tickborne illness while awaiting other testing -Follow-up on COVID 19 test -Tylenol as needed for fevers -Continue IV fluids with normal saline with KCl 20 mEq at 80 mL's per hour while low appetite and p.o. intake is low (3) Recurrent UTI: -As noted above -Continue IV Rocephin and follow urine culture (4) Elevated transaminase level: AST is mildly elevated at 64 It was also elevated at 45 a month ago-prior to this, it was never elevated in the past and all other LFTs are normal Imaging of the abdomen with a CT in 07/2019 showed a normal liver -Checking for tickborne illness as above -Follow LFTs (5) Thrombocytopenia: Platelets mildly low at 113. She runs on the low end of normal and has been as low as 123 in the past, but not this low Could be related to acute infection -Follow CBC -Checking for COVID and anaplasmosis as above, but other viral illnesses could cause thrombocytopenia (6) Atrial fibrillation: With paroxysmal atrial fibrillation-she is been in atrial fibrillation now for couple of months and does not tolerate it well Follows with cardiology and was started on flecainide 2 weeks ago with hopes of chemical cardioversion -Plan for DC cardioversion early next week with cardiology as an outpatient if does not chemically convert -Continue Eliquis 5 mg p.o. twice daily -Monitor on telemetry (7) Abnormal EKG: With ST downsloping depressions and T wave inversions in the lateral leads new from previous She denies any chest pain and troponin is negative She had a negative dobutamine stress test 2 weeks ago -Follow daily ECG (8) Hypertension: Blood pressures here are controlled -Continue amlodipine 2.5 mg p.o. daily, metoprolol tartrate 25 mg p.o. 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 and consolidative radiation therapy in 2018 -Follows with oncology (10) History of stroke: Apparently was minor deficits, occurred in 2015 -Continue Eliquis -Previously on Plavix, but it appears she is no longer on this -She is not on a statin drug-defer to PCP (11) Stage 3 chronic kidney disease: Baseline creatinine is 1.0 Creatinine is slightly up today at 1.23 likely due to hypovolemia from acute illness as above -Continue gentle IV fluids --Avoid nephrotoxins -renally dose meds when appropriate -follow BMP (12) Fungal infection of skin: Secondary to previous site of radiation therapy -Continue ketoconazole cream (13) Anticoagulant long-term use: On Eliquis as above (14) Urinary frequency: Chronic with urinary incontinence -Continue home Myrbetriq (15) DVT prophylaxis: Eliquis Disposition-admit on observation for febrile illness with dyspnea May need two-step walk test prior to discharge We will also order PT/OT given generalized weakness History of Present Illness Chief Complaint: Body aches, fever Primary Care Provider: Li Miner MD This patient is a 78-year-old female with a history of paroxysmal atrial fibrillation on Eliquis, diffuse large B cell lymphoma in remission, breast cancer, CKD stage III, hyperlipidemia, CVA, GERD, lumbar stenosis, and history of UTIs who presented to the ER with myalgias and worsening arthralgias, low appetite and progressively worsening generalized weakness for the last 2 days. She has been having chills. She has been feeling more dyspneic especially with exertion over the last few weeks and in fact saw cardiology for this 2 weeks ago and was placed on flecainide to try to chemically cardiovert her atrial fibrillation back to a sinus rhythm. She had a dobutamine stress echo which was negative for inducible ischemia at that time also. However, she feels her dyspnea is much worse in the last 2 days with her other symptoms as above. She denies any chest pain. She reports she has been chronically coughing since she has been back in atrial fibrillation for quite some time, productive of white sputum. She denies any nausea or vomiting, and has chronic intermittent loose stools but no overt diarrhea. [place] and walks through the grass around her house but is not aware of any recent tick bites. She went to her PCPs office today and was screened in the parking lot and found to have a fever of 100 F and she was sent to the ER for work-up to include COVID testing. In the ER, she was found to be afebrile, but was intermittently tachycardic and tachypneic with exertion such as getting up to go to the bathroom. That minimal exertion caused her significant dyspnea and her pulse ox reportedly dropped to 90% with walking. She had a work-up to include a CBC which showed a mild thrombocytopenia, BMP was within normal limits, troponin was negative, her AST was mildly elevated at 64 which was higher than previous. A flu swab was negative. A chest x-ray was negative, and a COVID 19 test was performed and pending at the time of admission. Her urinalysis showed 1+ protein, 2+ blood, 3+ leukocyte esterase- microscopy was not performed. She was treated with a dose of IV ceftriaxone, 1 L of normal saline. She will be admitted on observation for nonspecific febrile illness, with dyspnea, and possible UTI. Allergies Allergy/AdvReac Type Severity Reaction Status Date / Time dexamethasone Allergy Severe Shortness Verified 12/04/19 13:22 of Breath, throat constriction Sulfa (Sulfonamide Allergy Severe HIVES Verified 12/04/19 13:22 Antibiotics) adhesive tape Allergy Intermediate redness, Verified 12/04/19 13:22 irritation, peels skin off amoxicillin Allergy Unknown hives Verified 12/04/19 13:22 azithromycin Allergy Unknown Hives Verified 12/04/19 13:22 [From Zithromax Z-Siddhartha] clavulanic acid Allergy Unknown hives Verified 12/04/19 13:22 meperidine Allergy Unknown HIVES Verified 12/04/19 13:22 Penicillins Allergy Unknown hives Verified 12/04/19 13:22 ciprofloxacin [From Cipro] AdvReac Severe Vomiting Verified 12/04/19 13:22 codeine AdvReac Unknown NAUSEA AND Verified 12/04/19 13:22 VOMITING ketorolac AdvReac Unknown 'increased Verified 12/04/19 13:22 bleeding' Home Medications Home Medications Medication Instructions Recorded Confirmed Type ondansetron HCl 4 mg tablet 4 mg PO QID PRN 01/02/19 12/04/19 History acetaminophen 500 mg tablet 1,000 mg PO HS tab 06/03/19 12/04/19 History amlodipine [Norvasc] 2.5 mg PO QAM 07/08/19 12/04/19 History Eliquis 5 mg PO BID 07/31/19 12/04/19 History calcium carbonate-vitamin D3 1 tab PO QAM 07/31/19 12/04/19 History [Calcium with Vitamin D] cholecalciferol (vitamin D3) 1,000 units PO QAM 07/31/19 12/04/19 History cinnamon bark 1,000 mg PO QAM 07/31/19 12/04/19 History cyanocobalamin (vitamin B-12) 1,000 mcg PO HS 07/31/19 12/04/19 History omega-3 acid ethyl esters 1 cap PO QAM 07/31/19 12/04/19 History metoprolol tartrate 25 mg tablet 25 mg PO BID #180 tab 10/10/19 12/04/19 Rx furosemide 20 mg tablet 40 mg PO QAM PRN #180 tab 10/15/19 12/04/19 Rx loperamide 2 mg capsule 2 mg PO Q4H PRN #30 cap 10/19/19 12/04/19 Rx flecainide 100 mg tablet 100 mg PO Q12H #60 tab 11/20/19 12/04/19 Rx ketoconazole 1 applic TOPICAL DAILY PRN 11/26/19 12/04/19 History mirabegron [Myrbetriq] 50 mg PO QAM 12/04/19 12/04/19 History Past Med/Surg History Medical History Abnormal EKG Acid reflux disease Anticoagulant long-term use Anxiety no medication Atrial fibrillation Atrial tachycardia Chronic pain of left upper extremity Degenerative disc disease Fungal infection of skin under left breast -- using cream and following with PCP Generalized weakness History of breast cancer right breast cancer History of stroke "minor one" no deficits 2014 Hypertension Lumbar stenosis with neurogenic claudication Lymphoma non-hodgkin lymphoma 2017 Nephrolithiasis Osteoarthritis Peripheral neuropathy Port-A-Cath in place Recurrent UTI Rosacea Scoliosis Spinal stenosis Stage 3 chronic kidney disease monitoring Thyroid nodule Urinary tract infection Vitamin D deficiency Surgical History H/O colonoscopy H/O dilation and curettage multiple H/O: hysterectomy EVELIA History of appendectomy with hysterectomy History of back surgery lumbar fusion History of bladder surgery bladder tack History of bronchoscopy History of cardioversion 07/2019 History of esophagogastroduodenoscopy (EGD) History of lobectomy of lung Left upper lobe r/t nodule (granuloma) History of mastectomy right with lymph node removal History of tonsillectomy Nausea and vomiting after administration of anesthetic agent S/P cervical spinal fusion x2 () unsure of levels. Full ROM S/P cholecystectomy S/P thyroid biopsy negative Family History Mother Coronary heart disease Cancer Atrial fibrillation Father Coronary heart disease Myocardial infarction Cancer Aunt Cancer Other No family history of adverse response to anesthesia Stroke Denies family history of Ovarian cancer Kidney disease Colorectal cancer Social History Preferred Language: Sami Communication Ability: Effective Instrument Tester Required: No Beliefs That Will Affect Care: None marital status: / Current Living Situation: Alone Other Information That Helps Us Care for You: No Feels Safe at Home: Yes Safety Concerns: Feels Safe At This Time Smoking Status: Never smoker Second Hand Exposure: Yes (hx) ; Hx Alcohol Use: No Hx Substance Use: No Review of Systems Review of Systems: All systems reviewed & are unremarkable except as noted in HPI & below Has a mild headache at this time, no neck pain. Denies sore throat or runny nose. Has shoulder pains which seem worse than usual lately. Denies nausea or vomiting or diarrhea, no constipation. No skin rashes. Has occasional heart palpitations, denies chest pains. Has low appetite, generalized weakness Physical Exam Constitutional: WD/WN, vitals as above + ill appearing and + obese Eyes: PERRL, conjunctivae normal, anicteric sclerae ENMT: external ear and nose normal, oropharynx normal Neck: trachea midline, no thyromegaly Respiratory: normal respiratory effort, lungs clear to auscultation Cardiovascular: Rate/Rhythm: regular rate and + irregularly irregular Heart Sounds: no murmur Vessels: dorsalis pedis pulses present Extremities: no calf tenderness and no edema Chest (Breasts): Chest: + vascular access device or port (Left anterior chest- no surrounding erythema) Breast: + abnormal inspection of breast (With right mastectomy) Gastrointestinal (Abdomen): normal bowel sounds, soft, nontender, no hepatosplenomegaly Musculoskeletal: Extremities: extremities normal to inspection; no cyanosis and no clubbing Skin: no rashes, warm and dry Neurologic: moves all extremities and awake; no focal motor deficits Psychiatric: A+Ox3, euthymic affect Lymphatic: no lymphedema Results & Data Results & Data ([facility]) Vital Signs (Past 12 Hours) Vital Signs Temp Pulse Resp BP Pulse Ox 12/04/19 15:30 79 20 144/70 H 96 12/04/19 15:00 70 20 128/79 95 12/04/19 14:30 76 18 131/69 96 12/04/19 14:00 78 20 139/73 93 12/04/19 13:30 72 20 137/69 94 12/04/19 13:17 79 19 123/68 94 12/04/19 13:00 73 14 96 12/04/19 12:38 72 24 93 12/04/19 12:33 94 12/04/19 12:31 75 18 95 12/04/19 12:30 78 18 127/76 96 12/04/19 12:25 83 17 98 12/04/19 12:08 37.1 C 89 20 113/78 96 Laboratory Results 12/04/19 12/04/19 12/04/19 Range/Units 20:17 20:17 15:50 WBC (4.8-10.8) K/uL RBC (4.2-5.4) M/uL Hgb (12.0-16.0) g/dL Hct (37-47) % MCV (80-100) fL MCH (25-34) pg MCHC (32-36) g/dL RDW Std Deviation (36.4-46.3) fL RDW Coeff of Zackary (11.5-14.5) % Plt Count (130-400) K/uL MPV (7.4-10.4) fL Immature Gran % (Auto) % Neut % (Auto) % Lymph % (Auto) % [place] % (Auto) % Eos % (Auto) % Baso % (Auto) % Immature Gran # (Auto) (0.00-0.02) K/uL Neut # (Auto) (1.4-6.5) K/uL Lymph # (Auto) (1.2-3.4) K/uL [place] # (Auto) (0.11-0.59) K/uL Eos # (Auto) (0-0.5) K/uL Baso # (Auto) (0-0.2) K/uL Absolute Nucleated RBC (0-0) K/uL Nucleated RBC % (auto) % Peripher Smr Path Cons ESR (0-21) mm/hr PT (9.0-12.0) Seconds INR (0.9-1.1) APTT (21.0-31.0) Seconds PTT Ratio D-Dimer (0-500) ug/L FEU Sodium (136-145) mmol/L Potassium (3.5-5.1) mmol/L Chloride (98-107) mmol/L Carbon Dioxide (21-32) mmol/L Anion Gap (3-11) BUN (7-18) mg/dl Creatinine (0.6-1.2) mg/dl Est Cr Clr Drug Dosing ml/min Est GFR ( Amer) Est GFR (Non-Af Amer) BUN/Creatinine Ratio (10-20) Glucose (70-99) mg/dl Lactate (0.4-2.0) mmol/L Calcium (8.5-10.1) mg/dl Magnesium (1.8-2.4) mg/dl Total Bilirubin (0.2-1) mg/dl AST (15-37) U/L ALT (12-78) U/L Alkaline Phosphatase (45-117) U/L Lactate Dehydrogenase Pending Troponin I (0-0.045) ng/ml C-Reactive Protein (0-0.29) mg/dl Total Protein (6.4-8.2) gm/dl Albumin (3.4-5.0) gm/dl Globulin (2.5-4.0) gm/dl Albumin/Globulin Ratio (0.9-2) Procalcitonin (0-0.5) ng/ml Urine Color Yellow Urine Appearance Slightly Cloudy (Clear) Urine pH 6.0 (4.5-7.5) Ur Specific [place] 1.025 (1.000-1.030) Urine Protein 1+ H (Negative) Urine Glucose (UA) Negative (Negative) Urine Ketones Negative (Negative) Urine Blood 2+ H (Negative) Urine Nitrite Negative (Negative) Urine Bilirubin Negative (Negative) Urine Urobilinogen Negative (Negative) Ur Leukocyte Esterase 3+ H (Negative) A. phagocytophilum DNA Pending Lyme Disease IgG Ab (Negative) Lyme Disease IgM Ab (Negative) Influenza Type A (PCR) (Neg) Influenza Type B (PCR) (Neg) SARS-CoV-2 RNA (RT-PCR) 12/04/19 12/04/19 12/04/19 Range/Units 15:39 13:08 13:08 WBC (4.8-10.8) K/uL RBC (4.2-5.4) M/uL Hgb (12.0-16.0) g/dL Hct (37-47) % MCV (80-100) fL MCH (25-34) pg MCHC (32-36) g/dL RDW Std Deviation (36.4-46.3) fL RDW Coeff of Zackary (11.5-14.5) % Plt Count (130-400) K/uL MPV (7.4-10.4) fL Immature Gran % (Auto) % Neut % (Auto) % Lymph % (Auto) % [place] % (Auto) % Eos % (Auto) % Baso % (Auto) % Immature Gran # (Auto) (0.00-0.02) K/uL Neut # (Auto) (1.4-6.5) K/uL Lymph # (Auto) (1.2-3.4) K/uL [place] # (Auto) (0.11-0.59) K/uL Eos # (Auto) (0-0.5) K/uL Baso # (Auto) (0-0.2) K/uL Absolute Nucleated RBC (0-0) K/uL Nucleated RBC % (auto) % Peripher Smr Path Cons ESR (0-21) mm/hr PT (9.0-12.0) Seconds INR (0.9-1.1) APTT (21.0-31.0) Seconds PTT Ratio D-Dimer (0-500) ug/L FEU Sodium (136-145) mmol/L Potassium (3.5-5.1) mmol/L Chloride (98-107) mmol/L Carbon Dioxide (21-32) mmol/L Anion Gap (3-11) BUN (7-18) mg/dl Creatinine (0.6-1.2) mg/dl Est Cr Clr Drug Dosing ml/min Est GFR ( Amer) Est GFR (Non-Af Amer) BUN/Creatinine Ratio (10-20) Glucose (70-99) mg/dl Lactate 1.2 (0.4-2.0) mmol/L Calcium (8.5-10.1) mg/dl Magnesium (1.8-2.4) mg/dl Total Bilirubin (0.2-1) mg/dl AST (15-37) U/L ALT (12-78) U/L Alkaline Phosphatase (45-117) U/L Lactate Dehydrogenase Troponin I (0-0.045) ng/ml C-Reactive Protein (0-0.29) mg/dl Total Protein (6.4-8.2) gm/dl Albumin (3.4-5.0) gm/dl Globulin (2.5-4.0) gm/dl Albumin/Globulin Ratio (0.9-2) Procalcitonin (0-0.5) ng/ml Urine Color Urine Appearance (Clear) Urine pH (4.5-7.5) Ur Specific [place] (1.000-1.030) Urine Protein (Negative) Urine Glucose (UA) (Negative) Urine Ketones (Negative) Urine Blood (Negative) Urine Nitrite (Negative) Urine Bilirubin (Negative) Urine Urobilinogen (Negative) Ur Leukocyte Esterase (Negative) A. phagocytophilum DNA Lyme Disease IgG Ab (Negative) Lyme Disease IgM Ab (Negative) Influenza Type A (PCR) Neg for Influ A (Neg) Influenza Type B (PCR) Neg for Influ B (Neg) SARS-CoV-2 RNA (RT-PCR) Pending 12/04/19 12/04/19 12/04/19 Range/Units 13:07 13:07 13:07 WBC (4.8-10.8) K/uL RBC (4.2-5.4) M/uL Hgb (12.0-16.0) g/dL Hct (37-47) % MCV (80-100) fL MCH (25-34) pg MCHC (32-36) g/dL RDW Std Deviation (36.4-46.3) fL RDW Coeff of Zackary (11.5-14.5) % Plt Count (130-400) K/uL MPV (7.4-10.4) fL Immature Gran % (Auto) % Neut % (Auto) % Lymph % (Auto) % [place] % (Auto) % Eos % (Auto) % Baso % (Auto) % Immature Gran # (Auto) (0.00-0.02) K/uL Neut # (Auto) (1.4-6.5) K/uL Lymph # (Auto) (1.2-3.4) K/uL [place] # (Auto) (0.11-0.59) K/uL Eos # (Auto) (0-0.5) K/uL Baso # (Auto) (0-0.2) K/uL Absolute Nucleated RBC (0-0) K/uL Nucleated RBC % (auto) % Peripher Smr Path Cons ESR 14 (0-21) mm/hr PT (9.0-12.0) Seconds INR (0.9-1.1) APTT (21.0-31.0) Seconds PTT Ratio D-Dimer (0-500) ug/L FEU Sodium (136-145) mmol/L Potassium (3.5-5.1) mmol/L Chloride (98-107) mmol/L Carbon Dioxide (21-32) mmol/L Anion Gap (3-11) BUN (7-18) mg/dl Creatinine (0.6-1.2) mg/dl Est Cr Clr Drug Dosing ml/min Est GFR ( Amer) Est GFR (Non-Af Amer) BUN/Creatinine Ratio (10-20) Glucose (70-99) mg/dl Lactate (0.4-2.0) mmol/L Calcium (8.5-10.1) mg/dl Magnesium (1.8-2.4) mg/dl Total Bilirubin (0.2-1) mg/dl AST (15-37) U/L ALT (12-78) U/L Alkaline Phosphatase (45-117) U/L Lactate Dehydrogenase Troponin I (0-0.045) ng/ml C-Reactive Protein 0.30 H (0-0.29) mg/dl Total Protein (6.4-8.2) gm/dl Albumin (3.4-5.0) gm/dl Globulin (2.5-4.0) gm/dl Albumin/Globulin Ratio (0.9-2) Procalcitonin (0-0.5) ng/ml Urine Color Urine Appearance (Clear) Urine pH (4.5-7.5) Ur Specific [place] (1.000-1.030) Urine Protein (Negative) Urine Glucose (UA) (Negative) Urine Ketones (Negative) Urine Blood (Negative) Urine Nitrite (Negative) Urine Bilirubin (Negative) Urine Urobilinogen (Negative) Ur Leukocyte Esterase (Negative) A. phagocytophilum DNA Lyme Disease IgG Ab Negative (Negative) Lyme Disease IgM Ab Negative (Negative) Influenza Type A (PCR) (Neg) Influenza Type B (PCR) (Neg) SARS-CoV-2 RNA (RT-PCR) 12/04/19 12/04/19 12/04/19 Range/Units 13:07 13:07 13:07 WBC (4.8-10.8) K/uL RBC (4.2-5.4) M/uL Hgb (12.0-16.0) g/dL Hct (37-47) % MCV (80-100) fL MCH (25-34) pg MCHC (32-36) g/dL RDW Std Deviation (36.4-46.3) fL RDW Coeff of Zackary (11.5-14.5) % Plt Count (130-400) K/uL MPV (7.4-10.4) fL Immature Gran % (Auto) % Neut % (Auto) % Lymph % (Auto) % [place] % (Auto) % Eos % (Auto) % Baso % (Auto) % Immature Gran # (Auto) (0.00-0.02) K/uL Neut # (Auto) (1.4-6.5) K/uL Lymph # (Auto) (1.2-3.4) K/uL [place] # (Auto) (0.11-0.59) K/uL Eos # (Auto) (0-0.5) K/uL Baso # (Auto) (0-0.2) K/uL Absolute Nucleated RBC (0-0) K/uL Nucleated RBC % (auto) % Peripher Smr Path Cons ESR (0-21) mm/hr PT (9.0-12.0) Seconds INR (0.9-1.1) APTT (21.0-31.0) Seconds PTT Ratio D-Dimer 220 (0-500) ug/L FEU Sodium (136-145) mmol/L Potassium (3.5-5.1) mmol/L Chloride (98-107) mmol/L Carbon Dioxide (21-32) mmol/L Anion Gap (3-11) BUN (7-18) mg/dl Creatinine (0.6-1.2) mg/dl Est Cr Clr Drug Dosing ml/min Est GFR ( Amer) Est GFR (Non-Af Amer) BUN/Creatinine Ratio (10-20) Glucose (70-99) mg/dl Lactate 2.2 H* (0.4-2.0) mmol/L Calcium (8.5-10.1) mg/dl Magnesium (1.8-2.4) mg/dl Total Bilirubin (0.2-1) mg/dl AST (15-37) U/L ALT (12-78) U/L Alkaline Phosphatase (45-117) U/L Lactate Dehydrogenase Troponin I (0-0.045) ng/ml C-Reactive Protein (0-0.29) mg/dl Total Protein (6.4-8.2) gm/dl Albumin (3.4-5.0) gm/dl Globulin (2.5-4.0) gm/dl Albumin/Globulin Ratio (0.9-2) Procalcitonin 0.20 (0-0.5) ng/ml Urine Color Urine Appearance (Clear) Urine pH (4.5-7.5) Ur Specific [place] (1.000-1.030) Urine Protein (Negative) Urine Glucose (UA) (Negative) Urine Ketones (Negative) Urine Blood (Negative) Urine Nitrite (Negative) Urine Bilirubin (Negative) Urine Urobilinogen (Negative) Ur Leukocyte Esterase (Negative) A. phagocytophilum DNA Lyme Disease IgG Ab (Negative) Lyme Disease IgM Ab (Negative) Influenza Type A (PCR) (Neg) Influenza Type B (PCR) (Neg) SARS-CoV-2 RNA (RT-PCR) 12/04/19 12/04/19 12/04/19 Range/Units 13:07 13:07 13:07 WBC 6.18 (4.8-10.8) K/uL RBC 3.80 L (4.2-5.4) M/uL Hgb 12.2 (12.0-16.0) g/dL Hct 36.5 L (37-47) % MCV 96.1 (80-100) fL MCH 32.1 (25-34) pg MCHC 33.4 (32-36) g/dL RDW Std Deviation 48.6 H (36.4-46.3) fL RDW Coeff of Zackary 13.9 (11.5-14.5) % Plt Count 113 L (130-400) K/uL MPV 9.8 (7.4-10.4) fL Immature Gran % (Auto) 0.2 % Neut % (Auto) 67.9 % Lymph % (Auto) 19.7 % [place] % (Auto) 10.7 % Eos % (Auto) 1.3 % Baso % (Auto) 0.2 % Immature Gran # (Auto) 0.01 (0.00-0.02) K/uL Neut # (Auto) 4.20 (1.4-6.5) K/uL Lymph # (Auto) 1.22 (1.2-3.4) K/uL [place] # (Auto) 0.66 H (0.11-0.59) K/uL Eos # (Auto) 0.08 (0-0.5) K/uL Baso # (Auto) 0.01 (0-0.2) K/uL Absolute Nucleated RBC 0.00 (0-0) K/uL Nucleated RBC % (auto) 0.0 % Peripher Smr Path Cons Pending ESR (0-21) mm/hr PT 12.1 H (9.0-12.0) Seconds INR 1.2 H (0.9-1.1) APTT 35.4 H (21.0-31.0) Seconds PTT Ratio 1.3 D-Dimer (0-500) ug/L FEU Sodium 134 L (136-145) mmol/L Potassium 3.6 (3.5-5.1) mmol/L Chloride 102 (98-107) mmol/L Carbon Dioxide 25 (21-32) mmol/L Anion Gap 7.0 (3-11) BUN 18 (7-18) mg/dl Creatinine 1.23 H (0.6-1.2) mg/dl Est Cr Clr Drug Dosing 40.3 ml/min Est GFR ( Amer) 48.3 Est GFR (Non-Af Amer) 41.7 BUN/Creatinine Ratio 14.8 (10-20) Glucose 117 H (70-99) mg/dl Lactate (0.4-2.0) mmol/L Calcium 9.0 (8.5-10.1) mg/dl Magnesium 1.8 (1.8-2.4) mg/dl Total Bilirubin 0.9 (0.2-1) mg/dl AST 64 H (15-37) U/L ALT 40 (12-78) U/L Alkaline Phosphatase 99 (45-117) U/L Lactate Dehydrogenase Troponin I < 0.015 (0-0.045) ng/ml C-Reactive Protein (0-0.29) mg/dl Total Protein 6.8 (6.4-8.2) gm/dl Albumin 3.4 (3.4-5.0) gm/dl Globulin 3.4 (2.5-4.0) gm/dl Albumin/Globulin Ratio 1.0 (0.9-2) Procalcitonin (0-0.5) ng/ml Urine Color Urine Appearance (Clear) Urine pH (4.5-7.5) Ur Specific [place] (1.000-1.030) Urine Protein (Negative) Urine Glucose (UA) (Negative) Urine Ketones (Negative) Urine Blood (Negative) Urine Nitrite (Negative) Urine Bilirubin (Negative) Urine Urobilinogen (Negative) Ur Leukocyte Esterase (Negative) A. phagocytophilum DNA Lyme Disease IgG Ab (Negative) Lyme Disease IgM Ab (Negative) Influenza Type A (PCR) (Neg) Influenza Type B (PCR) (Neg) SARS-CoV-2 RNA (RT-PCR) Diagnostic Findings Chest x-ray image personally reviewed by me and agree with the following report: XR chest 1V portable HISTORY: SEPSIS COMPARISON: Chest 06/03/2019. FINDINGS: No pneumothorax. No pleural effusions. The heart remains mildly enlarged. Stable linear scarlike density and suture material within the left midlung zone. No new lung consolidations to suggest pneumonia. No evidence for pulmonary edema. There are posterior fusion hardware seen within the lower thoracic and lumbar spine. Surgical clips within the right upper quadrant and right axilla. Left subclavian Port-A-Cath terminates at the right atrium, unchanged. IMPRESSION: No significant change compared to the prior study. No acute process. ECG Additional Comments: ECG with atrial fibrillation, rate 68, ST depression downsloping and mild in lateral leads with T wave inversion which is changed from previous Code Status & VTE Plan Code Status DNR/DNI VTE Prophylaxis Plan VTE Prophylaxis will be ordered: Yes PG Care Time/CCT Total # of Minutes Spent Total Time Spent with Patient: Total time spent is greater than 50% in coordination of care (as documented) at patient's floor/unit and/or counseling patient: Coding Level of Care Code 55338 OBS Care - Level 3 Diagnoses Dyspnea on exertion R06.09 Fever R50.9 Recurrent UTI N39.0 Elevated transaminase level R74.0 Thrombocytopenia D69.6 Atrial fibrillation I48.91 Abnormal EKG R94.31 Hypertension I10 Hypertension type: unspecified Lymphoma C85.90 History of stroke Z86.73 Stage 3 chronic kidney disease N18.3 Fungal infection of skin B36.9 Anticoagulant long-term use Z79.01 Urinary frequency R35.0 DVT prophylaxis Z29.9 (1) Hypertension Hypertension type: unspecified Qualified Code(s): I10 - Essential (primary) hypertension
[2019-12-04 17:00] LABS: D Dimer 220 ug/L FEU (0-500)
[2019-12-04 17:52] LABS: Lyme Ab IgG w/WB Rflx Negative (Negative); Lyme Ab IgM w/WB Rflx Negative (Negative)
[2019-12-04] MEDS ORDERED: ONDANSETRON INJ 2 MG/ML 2 ML VIAL IV PRN (20:20)
[2019-12-04] MEDS ORDERED: ONDANSETRON 4 MG OD TAB PO PRN (20:36)
[2019-12-04] MEDS: DOXYCYCLINE HYCLATE 100 MG in DEXTROSE 5% 100 ML IV SCH (21:32)
[2019-12-04] MEDS: NSS + 20MEQ KCL 20 MEQ/1,000 ML BAG IV SCH (21:32)
[2019-12-04] MEDS: METOPROLOL TARTRATE 25 MG TAB PO SCH (21:38)
[2019-12-04] MEDS: ACETAMINOPHEN 500 MG TAB PO SCH (21:38)
[2019-12-04] MEDS: CYANOCOBALAMIN 500 MCG TABLET (VITAMIN B-12) PO SCH (21:39)
[2019-12-04] MEDS: FLECAINIDE ACETATE 100 MG TABLET PO SCH (21:39)
[2019-12-04] MEDS: APIXABAN 5 MG TABLET PO SCH (21:39)
[2019-12-05] MEDS ORDERED: HEPARIN 100 UNIT/ML 5ML FLUSH FLUSH PRN (00:22)
--- NOTE | 2019-12-05 07:05 | Electrocardiogram Report ---
Test Reason : Blood Pressure : / mmHG Vent. Rate : 068 BPM Atrial Rate : 166 BPM P-R Int : 000 ms QRS Dur : 082 ms QT Int : 382 ms P-R-T Axes : 000 011 177 degrees QTc Int : 406 ms Poor data quality, interpretation may be adversely affected Atrial fibrillation Abnormal ECG When compared with ECG of 31-JUL-2019 11:30, ST now depressed in Lateral leads T wave inversion more evident in Anterolateral leads Confirmed by Ja Kiran ([id number]) on 12/05/2019 7:05:01 AM Referred By: Confirmed By:Ja Kiran
[2019-12-05] MEDS: DOXYCYCLINE HYCLATE 100 MG in DEXTROSE 5% 100 ML IV SCH ×2 (08:01→20:53)
[2019-12-05] MEDS: APIXABAN 5 MG TABLET PO SCH ×2 (08:04→20:46)
[2019-12-05] MEDS: FLECAINIDE ACETATE 100 MG TABLET PO SCH ×2 (08:04→20:47)
[2019-12-05] MEDS: OMEGA-3 (PURIFIED FISH OIL) 1 GM CAP PO SCH (08:04)
[2019-12-05] MEDS: CALCIUM 600MG + VIT D 400 IU TAB PO SCH (08:05)
[2019-12-05] MEDS: METOPROLOL TARTRATE 25 MG TAB PO SCH ×2 (08:05→20:46)
[2019-12-05] MEDS: MIRABEGRON ER 25 MG TAB PO SCH (08:05)
[2019-12-05] MEDS: CHOLECALCIFEROL 1,000 UNITS 25 MCG TAB PO SCH (08:05)
[2019-12-05] MEDS: KETOCONAZOLE 2% CR 15 GM TUBE EXT SCH (08:06)
[2019-12-05] MEDS: AMLODIPINE BESYLATE 5 MG TAB PO SCH (08:06)
[2019-12-05 08:43] LABS: Hematocrit (blood only) 34.4 % (37-47); Hemoglobin 11.4 g/dL (12.0-16.0); Mean Corpuscular Hemoglobin 32.1 pg (25-34); Mean Corpuscular Hgb Conc 33.1 g/dL (32-36); Mean Corpuscular Volume 96.9 fL (80-100); RDW Standard Deviation 49.6 fL (36.4-46.3); Red Blood Count 3.55 M/uL (4.2-5.4)
[2019-12-05 09:07] LABS: Albumin Level 3.1 gm/dl (3.4-5.0); BUN Creatinine Ratio 15.8 (10-20); Bilirubin Direct 0.2 mg/dl (0-0.2); Calcium 8.5 mg/dl (8.5-10.1); Creatinine Clr Calc Pharmacy 44.1 ml/min; Est GFR (African American) 53.5; Est GFR (Non-African American) 46.2; Magnesium 1.8 mg/dl (1.8-2.4); Potassium 3.7 mmol/L (3.5-5.1)
[2019-12-05 09:10] LABS: Bilirubin,Total 0.6 mg/dl (0.2-1); Total Protein 6.2 gm/dl (6.4-8.2)
[2019-12-05 10:00] LABS: Mean Platelet Volume 9.7 fL (7.4-10.4); Platelet Count 96 K/uL (130-400)
[2019-12-05 10:01] LABS: Basophils # (auto) 0.01 K/uL (0-0.2); Basophils % (auto) 0.3 %; Eosinophils # (auto) 0.12 K/uL (0-0.5); Eosinophils % (auto) 3.1 %; Immature Granulocytes # (auto) 0.01 K/uL (0.00-0.02); Immature Granulocytes % (auto) 0.3 %; Lymphocytes # (auto) 0.87 K/uL (1.2-3.4); Lymphocytes % (auto) 22.3 %; Monocytes # (auto) 0.66 K/uL (0.11-0.59); Monocytes % (auto) 16.9 %; Neutrophils # (auto) 2.23 K/uL (1.4-6.5); Neutrophils % (auto) 57.1 %; Platelet Estimate Decreased (Normal)
[2019-12-05] MEDS: NSS + 20MEQ KCL 20 MEQ/1,000 ML BAG IV SCH ×2 (10:55→22:14)
[2019-12-05] MEDS: LOPERAMIDE HCL 2 MG CAP PO PRN (12:04)
--- NOTE | 2019-12-05 13:27 | Hospitalist Progress Note ---
Date of Service December 05, 2019 Assessment & Plan (1) Dyspnea on exertion: Marilyn An is a 78 y/o F with PMH significant for A. fib, with previous history of stroke in 2015, recurrent UTIs, and CKD; presented to the hospital for continued exertional shortness of breath in the setting of recent fever with temp of 100F Dypsnea on exertion: - long-standing history of dyspnea on exertion; documented back to cardiology visits since at least mid September - CXR negative for evidence of pulmonary edema or pneumonia, no pneumothorax - Influenza negative - COVID-19 negative - D-dimer negative on admission - Troponin negative - EKG on admission demonstrated T wave inversions in the lateral leads - negative dobutamine stress test on 11/19 - Echocardiogram from 05/2019 demonstrated mild concentric LVH, with preserved LV function, moderately dilated L atrium, mild aortic valve sclerosis, with a mildly dialated IVC - Cardiology previously attributed symptoms to her inability to tolerate a. fib; flecainide started on 11/19 with aimed for chemical conversion, but DC cardioversion on 12/07 if chemical converstion failure - Cardiology consulted for determination of necessity to move up DC cardioversion with worsening symptoms in setting of maintained A. fib Fever: - With a reported fever of 100F at her PCP office yesterday - afebrile since admission - lactate on admission 2.2 with down trend to 1.2 following IV fluid supplementation - ESR 14, CRP 0.3, pro-bishnu 0. - Urinalysis demonstrated 1+ protein, 2+ blood, and 3+ leuk esterase - urine culture demonstrated more than three types of organisms present all moderate counts, considered likely mixed skin vinicius - CXR did not demonstrate pneumonia - COVID 19 negative - Lyme titer negative - Influenza negative - Anaplasmosis PCR pending - blood cultures x2 pending - peripheral smear pending - continue ceftriaxone and Doxycycline Elevated Transaminase level: - AST is mildly elevated at 64; elevated at 45 a month ago - Imaging of the abdomen with a CT in 07/2019 showed a normal liver - Lyme titer negative - peripheral smear pending Thrombocytopenia: - Platelets mildly low at 113, typically on low end of normal and has been as low as 123 - COVID-19 negative - Anaplasmosis pending A. Fib: - With paroxysmal atrial fibrillation-she is been in atrial fibrillation now for couple of months and does not tolerate it well - started on flecainide 2 weeks ago with hopes of chemical cardioversion; plan for DC cardioversion on 12/07 with cardiology as an outpatient if does not chemically convert - Continue Eliquis - Consult cardiology for determination of next steps with cardioversion Abnormal EKG: - demonstrated ST depression in Lateral leads; T wave inversion more evident in Anterolateral leads - troponin is negative on admission - negative dobutamine stress test on 11/19 HTN: - continue home amlodipine, metoprolol tartrate CKD Stage 3: - Baseline creatinine is 1.0; on admission Cr 1.23 - likely 2/2 hypovolemia in the setting of decreased oral intake over the last week - Continue gentle IV fluids - Avoid nephrotoxins - continue to monitor Diet: Heart healthy DVT PPx: continue home Eliquis Code Status: DNR/DNI (2) Fever: (3) Recurrent UTI: (4) Elevated transaminase level: (5) Thrombocytopenia: (6) Atrial fibrillation: (7) Abnormal EKG: (8) Hypertension: (9) Stage 3 chronic kidney disease: Admission and Anticipated Discharge Date Admission Date: December 04, 2019 Supervising Physician Co-Signing Physician Notes Resident Physician Supervision Note: I independently interviewed and examined the patient and verified the waters history and physical, reviewed labs and image studies, discussed the case with the resident Dr. Cheney and agree with the findings and care plan. Subjective Patient continues to feel short of breath at rest, and with simple tasks. She feels like this is consistent to how she previously felt when she has had her A. fib rate uncontrolled. Denies any chest pain, tightness, feelings of her heart racing/pounding, heaviness, abdominal pain, nausea, vomiting, headaches, and changes in vision. Review of Systems Review of Systems: All systems reviewed & are unremarkable except as noted in Subjective Physical Exam Constitutional: WD/WN, vitals as above Eyes: PERRL, conjunctivae normal, anicteric sclerae ENMT: external ear and nose normal, oropharynx normal Respiratory: normal respiratory effort, lungs clear to auscultation Cardiovascular: Rate/Rhythm: regular rate and + irregularly irregular Heart Sounds: no gallop, no murmur and no cardiac rub Extremities: no pedal edema Gastrointestinal (Abdomen): normal bowel sounds, soft, nontender, no hepatosplenomegaly Musculoskeletal: no cyanosis or clubbing, extremities motor strength 5/5 Skin: no rashes, warm and dry Psychiatric: A+Ox3, euthymic affect Lymphatic: no cervical or axillary lymphadenopathy Results & Data Results & Data ([facility]) Vital Signs (Past 12 Hours) Vital Signs Temp Pulse Resp BP Pulse Ox 12/05/19 12:00 36.6 C 70 20 120/65 95 12/05/19 08:00 36.7 C 71 20 137/68 97 12/05/19 03:56 36.7 C 79 16 124/79 95 Laboratory Results 12/05/19 12/05/19 12/04/19 Range/Units 08:28 08:28 20:17 WBC 3.90 L (4.8-10.8) K/uL RBC 3.55 L (4.2-5.4) M/uL Hgb 11.4 L (12.0-16.0) g/dL Hct 34.4 L (37-47) % MCV 96.9 (80-100) fL MCH 32.1 (25-34) pg MCHC 33.1 (32-36) g/dL RDW Std Deviation 49.6 H (36.4-46.3) fL RDW Coeff of Zackary 14.0 (11.5-14.5) % Plt Count 96 L (130-400) K/uL MPV 9.7 (7.4-10.4) fL Immature Gran % (Auto) 0.3 % Neut % (Auto) 57.1 % Lymph % (Auto) 22.3 % [place] % (Auto) 16.9 % Eos % (Auto) 3.1 % Baso % (Auto) 0.3 % Immature Gran # (Auto) 0.01 (0.00-0.02) K/uL Neut # (Auto) 2.23 (1.4-6.5) K/uL Lymph # (Auto) 0.87 L (1.2-3.4) K/uL [place] # (Auto) 0.66 H (0.11-0.59) K/uL Eos # (Auto) 0.12 (0-0.5) K/uL Baso # (Auto) 0.01 (0-0.2) K/uL Absolute Nucleated RBC (0-0) K/uL Nucleated RBC % (auto) % Platelet Estimate Decreased L (Normal) Peripher Smr Path Cons ESR (0-21) mm/hr PT (9.0-12.0) Seconds INR (0.9-1.1) APTT (21.0-31.0) Seconds PTT Ratio D-Dimer (0-500) ug/L FEU Sodium 137 (136-145) mmol/L Potassium 3.7 (3.5-5.1) mmol/L Chloride 105 (98-107) mmol/L Carbon Dioxide 24 (21-32) mmol/L Anion Gap 8.0 (3-11) BUN 18 (7-18) mg/dl Creatinine 1.13 (0.6-1.2) mg/dl Est Cr Clr Drug Dosing 44.1 ml/min Est GFR ( Amer) 53.5 Est GFR (Non-Af Amer) 46.2 BUN/Creatinine Ratio 15.8 (10-20) Glucose 154 H (70-99) mg/dl Lactate (0.4-2.0) mmol/L Calcium 8.5 (8.5-10.1) mg/dl Magnesium 1.8 (1.8-2.4) mg/dl Total Bilirubin 0.6 (0.2-1) mg/dl Direct Bilirubin 0.2 (0-0.2) mg/dl AST 56 H (15-37) U/L ALT 38 (12-78) U/L Alkaline Phosphatase 97 (45-117) U/L Lactate Dehydrogenase (84-246) U/L Troponin I (0-0.045) ng/ml C-Reactive Protein (0-0.29) mg/dl Total Protein 6.2 L (6.4-8.2) gm/dl Albumin 3.1 L (3.4-5.0) gm/dl Globulin (2.5-4.0) gm/dl Albumin/Globulin Ratio (0.9-2) Procalcitonin (0-0.5) ng/ml Urine Color Urine Appearance (Clear) Urine pH (4.5-7.5) Ur Specific [place] (1.000-1.030) Urine Protein (Negative) Urine Glucose (UA) (Negative) Urine Ketones (Negative) Urine Blood (Negative) Urine Nitrite (Negative) Urine Bilirubin (Negative) Urine Urobilinogen (Negative) Ur Leukocyte Esterase (Negative) A. phagocytophilum DNA Pending Lyme Disease IgG Ab (Negative) Lyme Disease IgM Ab (Negative) Influenza Type A (PCR) (Neg) Influenza Type B (PCR) (Neg) SARS-CoV-2 RNA (RT-PCR) 12/04/19 12/04/19 12/04/19 Range/Units 20:17 15:50 15:39 WBC (4.8-10.8) K/uL RBC (4.2-5.4) M/uL Hgb (12.0-16.0) g/dL Hct (37-47) % MCV (80-100) fL MCH (25-34) pg MCHC (32-36) g/dL RDW Std Deviation (36.4-46.3) fL RDW Coeff of Zackary (11.5-14.5) % Plt Count (130-400) K/uL MPV (7.4-10.4) fL Immature Gran % (Auto) % Neut % (Auto) % Lymph % (Auto) % [place] % (Auto) % Eos % (Auto) % Baso % (Auto) % Immature Gran # (Auto) (0.00-0.02) K/uL Neut # (Auto) (1.4-6.5) K/uL Lymph # (Auto) (1.2-3.4) K/uL [place] # (Auto) (0.11-0.59) K/uL Eos # (Auto) (0-0.5) K/uL Baso # (Auto) (0-0.2) K/uL Absolute Nucleated RBC (0-0) K/uL Nucleated RBC % (auto) % Platelet Estimate (Normal) Peripher Smr Path Cons ESR (0-21) mm/hr PT (9.0-12.0) Seconds INR (0.9-1.1) APTT (21.0-31.0) Seconds PTT Ratio D-Dimer (0-500) ug/L FEU Sodium (136-145) mmol/L Potassium (3.5-5.1) mmol/L Chloride (98-107) mmol/L Carbon Dioxide (21-32) mmol/L Anion Gap (3-11) BUN (7-18) mg/dl Creatinine (0.6-1.2) mg/dl Est Cr Clr Drug Dosing ml/min Est GFR ( Amer) Est GFR (Non-Af Amer) BUN/Creatinine Ratio (10-20) Glucose (70-99) mg/dl Lactate 1.2 (0.4-2.0) mmol/L Calcium (8.5-10.1) mg/dl Magnesium (1.8-2.4) mg/dl Total Bilirubin (0.2-1) mg/dl Direct Bilirubin (0-0.2) mg/dl AST (15-37) U/L ALT (12-78) U/L Alkaline Phosphatase (45-117) U/L Lactate Dehydrogenase 211 (84-246) U/L Troponin I (0-0.045) ng/ml C-Reactive Protein (0-0.29) mg/dl Total Protein (6.4-8.2) gm/dl Albumin (3.4-5.0) gm/dl Globulin (2.5-4.0) gm/dl Albumin/Globulin Ratio (0.9-2) Procalcitonin (0-0.5) ng/ml Urine Color Yellow Urine Appearance Slightly Cloudy (Clear) Urine pH 6.0 (4.5-7.5) Ur Specific [place] 1.025 (1.000-1.030) Urine Protein 1+ H (Negative) Urine Glucose (UA) Negative (Negative) Urine Ketones Negative (Negative) Urine Blood 2+ H (Negative) Urine Nitrite Negative (Negative) Urine Bilirubin Negative (Negative) Urine Urobilinogen Negative (Negative) Ur Leukocyte Esterase 3+ H (Negative) A. phagocytophilum DNA Lyme Disease IgG Ab (Negative) Lyme Disease IgM Ab (Negative) Influenza Type A (PCR) (Neg) Influenza Type B (PCR) (Neg) SARS-CoV-2 RNA (RT-PCR) 12/04/19 12/04/19 12/04/19 Range/Units 13:08 13:08 13:07 WBC (4.8-10.8) K/uL RBC (4.2-5.4) M/uL Hgb (12.0-16.0) g/dL Hct (37-47) % MCV (80-100) fL MCH (25-34) pg MCHC (32-36) g/dL RDW Std Deviation (36.4-46.3) fL RDW Coeff of Zackary (11.5-14.5) % Plt Count (130-400) K/uL MPV (7.4-10.4) fL Immature Gran % (Auto) % Neut % (Auto) % Lymph % (Auto) % [place] % (Auto) % Eos % (Auto) % Baso % (Auto) % Immature Gran # (Auto) (0.00-0.02) K/uL Neut # (Auto) (1.4-6.5) K/uL Lymph # (Auto) (1.2-3.4) K/uL [place] # (Auto) (0.11-0.59) K/uL Eos # (Auto) (0-0.5) K/uL Baso # (Auto) (0-0.2) K/uL Absolute Nucleated RBC (0-0) K/uL Nucleated RBC % (auto) % Platelet Estimate (Normal) Peripher Smr Path Cons ESR (0-21) mm/hr PT (9.0-12.0) Seconds INR (0.9-1.1) APTT (21.0-31.0) Seconds PTT Ratio D-Dimer (0-500) ug/L FEU Sodium (136-145) mmol/L Potassium (3.5-5.1) mmol/L Chloride (98-107) mmol/L Carbon Dioxide (21-32) mmol/L Anion Gap (3-11) BUN (7-18) mg/dl Creatinine (0.6-1.2) mg/dl Est Cr Clr Drug Dosing ml/min Est GFR ( Amer) Est GFR (Non-Af Amer) BUN/Creatinine Ratio (10-20) Glucose (70-99) mg/dl Lactate (0.4-2.0) mmol/L Calcium (8.5-10.1) mg/dl Magnesium (1.8-2.4) mg/dl Total Bilirubin (0.2-1) mg/dl Direct Bilirubin (0-0.2) mg/dl AST (15-37) U/L ALT (12-78) U/L Alkaline Phosphatase (45-117) U/L Lactate Dehydrogenase (84-246) U/L Troponin I (0-0.045) ng/ml C-Reactive Protein 0.30 H (0-0.29) mg/dl Total Protein (6.4-8.2) gm/dl Albumin (3.4-5.0) gm/dl Globulin (2.5-4.0) gm/dl Albumin/Globulin Ratio (0.9-2) Procalcitonin (0-0.5) ng/ml Urine Color Urine Appearance (Clear) Urine pH (4.5-7.5) Ur Specific [place] (1.000-1.030) Urine Protein (Negative) Urine Glucose (UA) (Negative) Urine Ketones (Negative) Urine Blood (Negative) Urine Nitrite (Negative) Urine Bilirubin (Negative) Urine Urobilinogen (Negative) Ur Leukocyte Esterase (Negative) A. phagocytophilum DNA Lyme Disease IgG Ab (Negative) Lyme Disease IgM Ab (Negative) Influenza Type A (PCR) Neg for Influ A (Neg) Influenza Type B (PCR) Neg for Influ B (Neg) SARS-CoV-2 RNA (RT-PCR) Pending 12/04/19 12/04/19 12/04/19 Range/Units 13:07 13:07 13:07 WBC (4.8-10.8) K/uL RBC (4.2-5.4) M/uL Hgb (12.0-16.0) g/dL Hct (37-47) % MCV (80-100) fL MCH (25-34) pg MCHC (32-36) g/dL RDW Std Deviation (36.4-46.3) fL RDW Coeff of Zackary (11.5-14.5) % Plt Count (130-400) K/uL MPV (7.4-10.4) fL Immature Gran % (Auto) % Neut % (Auto) % Lymph % (Auto) % [place] % (Auto) % Eos % (Auto) % Baso % (Auto) % Immature Gran # (Auto) (0.00-0.02) K/uL Neut # (Auto) (1.4-6.5) K/uL Lymph # (Auto) (1.2-3.4) K/uL [place] # (Auto) (0.11-0.59) K/uL Eos # (Auto) (0-0.5) K/uL Baso # (Auto) (0-0.2) K/uL Absolute Nucleated RBC (0-0) K/uL Nucleated RBC % (auto) % Platelet Estimate (Normal) Peripher Smr Path Cons ESR 14 (0-21) mm/hr PT (9.0-12.0) Seconds INR (0.9-1.1) APTT (21.0-31.0) Seconds PTT Ratio D-Dimer 220 (0-500) ug/L FEU Sodium (136-145) mmol/L Potassium (3.5-5.1) mmol/L Chloride (98-107) mmol/L Carbon Dioxide (21-32) mmol/L Anion Gap (3-11) BUN (7-18) mg/dl Creatinine (0.6-1.2) mg/dl Est Cr Clr Drug Dosing ml/min Est GFR ( Amer) Est GFR (Non-Af Amer) BUN/Creatinine Ratio (10-20) Glucose (70-99) mg/dl Lactate (0.4-2.0) mmol/L Calcium (8.5-10.1) mg/dl Magnesium (1.8-2.4) mg/dl Total Bilirubin (0.2-1) mg/dl Direct Bilirubin (0-0.2) mg/dl AST (15-37) U/L ALT (12-78) U/L Alkaline Phosphatase (45-117) U/L Lactate Dehydrogenase (84-246) U/L Troponin I (0-0.045) ng/ml C-Reactive Protein (0-0.29) mg/dl Total Protein (6.4-8.2) gm/dl Albumin (3.4-5.0) gm/dl Globulin (2.5-4.0) gm/dl Albumin/Globulin Ratio (0.9-2) Procalcitonin (0-0.5) ng/ml Urine Color Urine Appearance (Clear) Urine pH (4.5-7.5) Ur Specific [place] (1.000-1.030) Urine Protein (Negative) Urine Glucose (UA) (Negative) Urine Ketones (Negative) Urine Blood (Negative) Urine Nitrite (Negative) Urine Bilirubin (Negative) Urine Urobilinogen (Negative) Ur Leukocyte Esterase (Negative) A. phagocytophilum DNA Lyme Disease IgG Ab Negative (Negative) Lyme Disease IgM Ab Negative (Negative) Influenza Type A (PCR) (Neg) Influenza Type B (PCR) (Neg) SARS-CoV-2 RNA (RT-PCR) 12/04/19 12/04/19 12/04/19 Range/Units 13:07 13:07 13:07 WBC (4.8-10.8) K/uL RBC (4.2-5.4) M/uL Hgb (12.0-16.0) g/dL Hct (37-47) % MCV (80-100) fL MCH (25-34) pg MCHC (32-36) g/dL RDW Std Deviation (36.4-46.3) fL RDW Coeff of Zackary (11.5-14.5) % Plt Count (130-400) K/uL MPV (7.4-10.4) fL Immature Gran % (Auto) % Neut % (Auto) % Lymph % (Auto) % [place] % (Auto) % Eos % (Auto) % Baso % (Auto) % Immature Gran # (Auto) (0.00-0.02) K/uL Neut # (Auto) (1.4-6.5) K/uL Lymph # (Auto) (1.2-3.4) K/uL [place] # (Auto) (0.11-0.59) K/uL Eos # (Auto) (0-0.5) K/uL Baso # (Auto) (0-0.2) K/uL Absolute Nucleated RBC (0-0) K/uL Nucleated RBC % (auto) % Platelet Estimate (Normal) Peripher Smr Path Cons ESR (0-21) mm/hr PT (9.0-12.0) Seconds INR (0.9-1.1) APTT (21.0-31.0) Seconds PTT Ratio D-Dimer (0-500) ug/L FEU Sodium 134 L (136-145) mmol/L Potassium 3.6 (3.5-5.1) mmol/L Chloride 102 (98-107) mmol/L Carbon Dioxide 25 (21-32) mmol/L Anion Gap 7.0 (3-11) BUN 18 (7-18) mg/dl Creatinine 1.23 H (0.6-1.2) mg/dl Est Cr Clr Drug Dosing 40.3 ml/min Est GFR ( Amer) 48.3 Est GFR (Non-Af Amer) 41.7 BUN/Creatinine Ratio 14.8 (10-20) Glucose 117 H (70-99) mg/dl Lactate 2.2 H* (0.4-2.0) mmol/L Calcium 9.0 (8.5-10.1) mg/dl Magnesium 1.8 (1.8-2.4) mg/dl Total Bilirubin 0.9 (0.2-1) mg/dl Direct Bilirubin (0-0.2) mg/dl AST 64 H (15-37) U/L ALT 40 (12-78) U/L Alkaline Phosphatase 99 (45-117) U/L Lactate Dehydrogenase (84-246) U/L Troponin I < 0.015 (0-0.045) ng/ml C-Reactive Protein (0-0.29) mg/dl Total Protein 6.8 (6.4-8.2) gm/dl Albumin 3.4 (3.4-5.0) gm/dl Globulin 3.4 (2.5-4.0) gm/dl Albumin/Globulin Ratio 1.0 (0.9-2) Procalcitonin 0.20 (0-0.5) ng/ml Urine Color Urine Appearance (Clear) Urine pH (4.5-7.5) Ur Specific [place] (1.000-1.030) Urine Protein (Negative) Urine Glucose (UA) (Negative) Urine Ketones (Negative) Urine Blood (Negative) Urine Nitrite (Negative) Urine Bilirubin (Negative) Urine Urobilinogen (Negative) Ur Leukocyte Esterase (Negative) A. phagocytophilum DNA Lyme Disease IgG Ab (Negative) Lyme Disease IgM Ab (Negative) Influenza Type A (PCR) (Neg) Influenza Type B (PCR) (Neg) SARS-CoV-2 RNA (RT-PCR) 12/04/19 12/04/19 Range/Units 13:07 13:07 WBC 6.18 (4.8-10.8) K/uL RBC 3.80 L (4.2-5.4) M/uL Hgb 12.2 (12.0-16.0) g/dL Hct 36.5 L (37-47) % MCV 96.1 (80-100) fL MCH 32.1 (25-34) pg MCHC 33.4 (32-36) g/dL RDW Std Deviation 48.6 H (36.4-46.3) fL RDW Coeff of Zackary 13.9 (11.5-14.5) % Plt Count 113 L (130-400) K/uL MPV 9.8 (7.4-10.4) fL Immature Gran % (Auto) 0.2 % Neut % (Auto) 67.9 % Lymph % (Auto) 19.7 % [place] % (Auto) 10.7 % Eos % (Auto) 1.3 % Baso % (Auto) 0.2 % Immature Gran # (Auto) 0.01 (0.00-0.02) K/uL Neut # (Auto) 4.20 (1.4-6.5) K/uL Lymph # (Auto) 1.22 (1.2-3.4) K/uL [place] # (Auto) 0.66 H (0.11-0.59) K/uL Eos # (Auto) 0.08 (0-0.5) K/uL Baso # (Auto) 0.01 (0-0.2) K/uL Absolute Nucleated RBC 0.00 (0-0) K/uL Nucleated RBC % (auto) 0.0 % Platelet Estimate (Normal) Peripher Smr Path Cons Pending ESR (0-21) mm/hr PT 12.1 H (9.0-12.0) Seconds INR 1.2 H (0.9-1.1) APTT 35.4 H (21.0-31.0) Seconds PTT Ratio 1.3 D-Dimer (0-500) ug/L FEU Sodium (136-145) mmol/L Potassium (3.5-5.1) mmol/L Chloride (98-107) mmol/L Carbon Dioxide (21-32) mmol/L Anion Gap (3-11) BUN (7-18) mg/dl Creatinine (0.6-1.2) mg/dl Est Cr Clr Drug Dosing ml/min Est GFR ( Amer) Est GFR (Non-Af Amer) BUN/Creatinine Ratio (10-20) Glucose (70-99) mg/dl Lactate (0.4-2.0) mmol/L Calcium (8.5-10.1) mg/dl Magnesium (1.8-2.4) mg/dl Total Bilirubin (0.2-1) mg/dl Direct Bilirubin (0-0.2) mg/dl AST (15-37) U/L ALT (12-78) U/L Alkaline Phosphatase (45-117) U/L Lactate Dehydrogenase (84-246) U/L Troponin I (0-0.045) ng/ml C-Reactive Protein (0-0.29) mg/dl Total Protein (6.4-8.2) gm/dl Albumin (3.4-5.0) gm/dl Globulin (2.5-4.0) gm/dl Albumin/Globulin Ratio (0.9-2) Procalcitonin (0-0.5) ng/ml Urine Color Urine Appearance (Clear) Urine pH (4.5-7.5) Ur Specific [place] (1.000-1.030) Urine Protein (Negative) Urine Glucose (UA) (Negative) Urine Ketones (Negative) Urine Blood (Negative) Urine Nitrite (Negative) Urine Bilirubin (Negative) Urine Urobilinogen (Negative) Ur Leukocyte Esterase (Negative) A. phagocytophilum DNA Lyme Disease IgG Ab (Negative) Lyme Disease IgM Ab (Negative) Influenza Type A (PCR) (Neg) Influenza Type B (PCR) (Neg) SARS-CoV-2 RNA (RT-PCR) Medications Administered Current Inpatient Medications Acetaminophen (Tylenol) 1,[address] [facility] Stop: 01/03/20 20:59 Last Admin: 12/04/19 21:38 Dose: 1,000 mg Documented by: Acetaminophen (Tylenol) 650 mg PO Q4H PRN PRN Reason: Pain or Fever Stop: 01/03/20 20:19 [facility] Stop: 01/04/20 08:59 Last Admin: 12/05/19 08:06 Dose: 2.5 mg Documented by: Apixaban (Eliquis) 5 mg PO BID [facility] Stop: 01/03/20 20:59 Last Admin: 12/05/19 08:04 Dose: 5 mg Documented by: Cyanocobalamin (Vitamin B-12) 1,[address] [facility] Stop: 01/03/20 20:59 Last Admin: 12/04/19 21:39 Dose: 1,000 mcg Documented by: Fish Oil (Sturkie-3 (Purified Fish Oil)) 1 [facility] Stop: 01/04/20 08:59 Last Admin: 12/05/19 08:04 Dose: 1 gm Documented by: Flecainide Acetate (Tambocor) 100 mg PO Q12H [facility] Stop: 01/03/20 20:59 Last Admin: 12/05/19 08:04 Dose: 100 mg Documented by: Heparin Sodium (Porcine) (Heparin Sod 100 Unit/Ml Flush) 5 ml FLUSH PRN PRN PRN Reason: Flush Stop: 01/04/20 00:29 Ceftriaxone Sodium 2,000 mg/ (Dextrose) 70 mls @ 100 mls/hr IV Q24H [facility]; Protocol Stop: 12/10/19 17:59 Doxycycline Hyclate 100 mg/ (Dextrose) 110 mls @ 50 mls/hr IV Q12H [facility] Stop: 12/18/19 20:59 Last Infusion: 12/05/19 10:19 Dose: Infused Documented by: Potassium Chloride/Sodium Chloride (Normal Saline W/20 Meq Kcl) 20 meq in 1,000 mls @ 80 mls/hr IV .[id number] [facility] Stop: 01/03/20 20:59 Last Admin: 12/05/19 10:55 Dose: 80 mls/hr Documented by: Ketoconazole (Nizoral 2%) 1 appln EXT DAILY [facility] Stop: 12/15/19 08:59 Last Admin: 12/05/19 08:06 Dose: 1 appln Documented by: Loperamide HCl (Imodium) 2 mg PO Q4H PRN PRN Reason: diarrhea Stop: 01/03/20 20:19 Last Admin: 12/05/19 12:04 Dose: 2 mg Documented by: Metoprolol Tartrate (Lopressor) 25 mg PO BID [facility] Stop: 01/03/20 20:59 Last Admin: 12/05/19 08:05 Dose: 25 mg Documented by: Mirabegron (Myrbetriq Er) 50 mg PO QAM [facility] Stop: 01/04/20 08:59 Last Admin: 12/05/19 08:05 Dose: 50 mg Documented by: Multivitamins/Minerals (Caltrate Plus) 1 tab PO QAM [facility] Stop: 01/04/20 08:59 Last Admin: 12/05/19 08:05 Dose: 1 tab Documented by: Ondansetron HCl (Zofran Odt) 4 mg PO QID PRN PRN Reason: Nausea Stop: 01/03/20 20:35 Ondansetron HCl (Zofran) 4 mg IV Q6H PRN PRN Reason: Nausea Stop: 01/03/20 20:19 Last Admin: 12/05/19 08:04 Dose: 4 mg Documented by: Vitamin D (Vitamin D3) 1,000 units PO QAM [place] Stop: 01/04/20 08:59 Last Admin: 12/05/19 08:05 Dose: 1,000 units Documented by: Resident Activity Tracking Resident Involvement: Resident Care Provided Care Provided: Adult Hospital Medicine (1) Hypertension Hypertension type: unspecified Qualified Code(s): I10 - Essential (primary) hypertension
[2019-12-05] MEDS: ACETAMINOPHEN 325 MG TAB PO PRN (17:43)
[2019-12-05] MEDS ORDERED: cefTRIAXone SODIUM 2,000 MG in DEXTROSE 5% 50 ML IV SCH (18:00)
[2019-12-05] MEDS: ACETAMINOPHEN 500 MG TAB PO SCH (20:47)
[2019-12-05] MEDS: CYANOCOBALAMIN 500 MCG TABLET (VITAMIN B-12) PO SCH (20:47)
[2019-12-06 08:33] LABS: Basophils # (auto) 0.02 K/uL (0-0.2); Basophils % (auto) 0.4 %; Eosinophils # (auto) 0.21 K/uL (0-0.5); Eosinophils % (auto) 3.8 %; Hematocrit (blood only) 35.1 % (37-47); Hemoglobin 11.7 g/dL (12.0-16.0); Immature Granulocytes # (auto) 0.03 K/uL (0.00-0.02); Immature Granulocytes % (auto) 0.5 %; Lymphocytes # (auto) 1.22 K/uL (1.2-3.4); Lymphocytes % (auto) 22.3 %; Mean Corpuscular Hemoglobin 32.7 pg (25-34); Mean Corpuscular Hgb Conc 33.3 g/dL (32-36); Mean Platelet Volume 10.1 fL (7.4-10.4); Monocytes # (auto) 0.82 K/uL (0.11-0.59); Neutrophils # (auto) 3.18 K/uL (1.4-6.5); Platelet Count 112 K/uL (130-400); RDW Coefficient of Variation 14.3 % (11.5-14.5); RDW Standard Deviation 51.2 fL (36.4-46.3); Red Blood Count 3.58 M/uL (4.2-5.4); White Blood Count 5.48 K/uL (4.8-10.8)
[2019-12-06] MEDS: AMLODIPINE BESYLATE 5 MG TAB PO SCH (08:47)
[2019-12-06] MEDS: MIRABEGRON ER 25 MG TAB PO SCH (08:47)
[2019-12-06] MEDS: METOPROLOL TARTRATE 25 MG TAB PO SCH ×2 (08:48→20:27)
[2019-12-06] MEDS: CALCIUM 600MG + VIT D 400 IU TAB PO SCH (08:48)
[2019-12-06] MEDS: CHOLECALCIFEROL 1,000 UNITS 25 MCG TAB PO SCH (08:49)
[2019-12-06] MEDS: OMEGA-3 (PURIFIED FISH OIL) 1 GM CAP PO SCH (08:49)
[2019-12-06] MEDS: APIXABAN 5 MG TABLET PO SCH ×2 (08:49→20:26)
[2019-12-06] MEDS: FLECAINIDE ACETATE 100 MG TABLET PO SCH ×2 (08:50→20:28)
[2019-12-06] MEDS: ACETAMINOPHEN 325 MG TAB PO PRN ×2 (08:52→18:52)
[2019-12-06] MEDS: DOXYCYCLINE HYCLATE 100 MG in DEXTROSE 5% 100 ML IV SCH (08:56)
[2019-12-06] MEDS: KETOCONAZOLE 2% CR 15 GM TUBE EXT SCH (08:57)
[2019-12-06 09:01] LABS: BUN Creatinine Ratio 14.1 (10-20); Calcium 8.4 mg/dl (8.5-10.1); Creatinine Clr Calc Pharmacy 48.7 ml/min; Est GFR (African American) 59.9; Est GFR (Non-African American) 51.7; Magnesium 1.7 mg/dl (1.8-2.4); Potassium 4.2 mmol/L (3.5-5.1)
[2019-12-06 09:04] LABS: Albumin Globulin Ratio 0.9 (0.9-2); Bilirubin,Total 0.5 mg/dl (0.2-1); Globulin 3.3 gm/dl (2.5-4.0); Phosphorus 2.2 mg/dl (2.5-4.9); Total Protein 6.3 gm/dl (6.4-8.2)
--- NOTE | 2019-12-06 12:23 | Cardiology Consultation ---
Date of Consultation December 06, 2019 Assessment & Plan (1) Atrial fibrillation: (2) AMNE (dyspnea on exertion): (3) Fever: ASSESSMENT/PLAN: 1. Atrial fibrillation: Her atrial fibrillation is well rate controlled on metoprolol. She has been on flecainide in anticipation of cardioversion in 2 days. She would like to be cardioverted sooner due to dyspnea with exertion. When reviewing records, it appears as though she has had dyspnea with exertion for many years despite being in sinus rhythm in the past. She did not notice any significant improvement after cardioversion in July so it is unclear if her symptoms will improve as noted by Dr. Kiran, her primary agricultural mechanic. But, to see if her quality of life does have some improvement, will perform cardioversion tomorrow while hospitalized. She has been fully anticoagulated without interruption for the past 4 weeks and longer. Continue Eliquis without interruption. NPO after midnight. Dr. Mohan of anesthesiology was notified so the anesthesia can provide sedation. 2. Dyspnea with exertion: Etiology uncertain. Nursing staff reports that her oxygen saturation dropped to 89% with walking in the hallway. Would not expect hypoxia to be secondary to her AFib. She has had negative stress echo last month. If her dyspnea remains following cardioversion, recommend further evaluation as per primary service. 3. Fever: She is on antibiotics as per primary service. She has not been febrile here. 4. Disposition: Plan for cardioversion tomorrow morning. Dr. Kiran will resume her cardiology care. Patient care discussed with primary service, Dr. Hathaway and also communicated with Dr. Cheney. Thank you for allowing me to participate in the care of your patient. Please call for any other questions or concerns. Sincerely, Wilbert Mccarthy M.D. History of Present Illness Reason for Consultation: Atrial Fibrillation Requesting Physician: Dr. Cheney Attending Physician: Brandie Hathaway MD History of Present Illness Ms. An is a pleasant 78-year-old female with history significant for atrial fibrillation (prior cardioversion July 2019), anticoagulation therapy, diffuse large B-cell lymphoma, breast cancer, CKD, dyslipidemia, stroke, lumbar stenosis, and GERD. Her primary agricultural mechanic is Dr. Kiran. She was referred to [facility] by her PCP, Dr. Miner for concern of sepsis. She had reported a low-grade fever. She states today that she was having recurrent nausea and vomiting, dehydration as well as progressively worsening dyspnea with exertion. She had noted a low-grade fever and myalgias. She had not been eating. She vomited once but had dry heaves. While here, she has been treated with antibiotics. She is feeling better but still a little weak. She admits that dyspnea with exertion has been progressively worsening since May. She underwent cardioversion in July of 2019 and states that she did not notice any significant improvement but believes that she was beginning to feel better a few weeks later before once again feeling worse. Dr. Kiran recently started her on flecainide with plans of cardioversion in 2 days to see if it improves her symptoms although he was not certain that her dyspnea was related to her AFib. When reviewing old records, she was seen by Cardiology in 2015 and had reported worsening dyspnea with exertion at that time. She was not in atrial fibrillation at that time. She denies orthopnea, shortness of breath at rest, syncope, near-syncope, palpitations, edema, or bleeding such as melena, hematochezia, or hematuria. She has not missed any doses of Eliquis for the past 4 weeks or longer per her report. She would like to remain hospitalized until she can undergo cardioversion to see if she can feel better. Review of systems: As above and also admits to chronic diarrhea. review of systems otherwise negative/unremarkable. Family history: Mother had CABG, atrial fibrillation, and CHF. Father had COPD. Social history: She denies tobacco or alcohol abuse. She is a x2. She has 1 son who lives nearby. She has 2 grandchildren. She lives alone. She is unaccompanied today. Allergies Allergy/AdvReac Type Severity Reaction Status Date / Time dexamethasone Allergy Severe Shortness Verified 12/04/19 13:22 of Breath, throat constriction Sulfa (Sulfonamide Allergy Severe HIVES Verified 12/04/19 13:22 Antibiotics) adhesive tape Allergy Intermediate redness, Verified 12/04/19 13:22 irritation, peels skin off amoxicillin Allergy Unknown hives Verified 12/04/19 13:22 azithromycin Allergy Unknown Hives Verified 12/04/19 13:22 [From Zithromax Z-Siddhartha] clavulanic acid Allergy Unknown hives Verified 12/04/19 13:22 meperidine Allergy Unknown HIVES Verified 12/04/19 13:22 Penicillins Allergy Unknown hives Verified 12/04/19 13:22 ciprofloxacin [From Cipro] AdvReac Severe Vomiting Verified 12/04/19 13:22 codeine AdvReac Unknown NAUSEA AND Verified 12/04/19 13:22 VOMITING ketorolac AdvReac Unknown 'increased Verified 12/04/19 13:22 bleeding' Home Medications Home Medications Medication Instructions Recorded Confirmed Type ondansetron HCl 4 mg tablet 4 mg PO QID PRN 01/02/19 12/04/19 History acetaminophen 500 mg tablet 1,000 mg PO HS tab 06/03/19 12/04/19 History amlodipine [Norvasc] 2.5 mg PO QAM 07/08/19 12/04/19 History Eliquis 5 mg PO BID 07/31/19 12/04/19 History calcium carbonate-vitamin D3 1 tab PO QAM 07/31/19 12/04/19 History [Calcium with Vitamin D] cholecalciferol (vitamin D3) 1,000 units PO QAM 07/31/19 12/04/19 History cinnamon bark 1,000 mg PO QAM 07/31/19 12/04/19 History cyanocobalamin (vitamin B-12) 1,000 mcg PO HS 07/31/19 12/04/19 History omega-3 acid ethyl esters 1 cap PO QAM 07/31/19 12/04/19 History metoprolol tartrate 25 mg tablet 25 mg PO BID #180 tab 10/10/19 12/04/19 Rx furosemide 20 mg tablet 40 mg PO QAM PRN #180 tab 10/15/19 12/04/19 Rx loperamide 2 mg capsule 2 mg PO Q4H PRN #30 cap 10/19/19 12/04/19 Rx flecainide 100 mg tablet 100 mg PO Q12H #60 tab 11/20/19 12/04/19 Rx ketoconazole 1 applic TOPICAL DAILY PRN 11/26/19 12/04/19 History mirabegron [Myrbetriq] 50 mg PO QAM 12/04/19 12/04/19 History Patient History Medical History Abnormal EKG Acid reflux disease Anticoagulant long-term use Anxiety no medication Atrial fibrillation Atrial tachycardia Chronic pain of left upper extremity Degenerative disc disease Fungal infection of skin under left breast -- using cream and following with PCP Generalized weakness History of breast cancer right breast cancer History of stroke "minor one" no deficits 2014 Hypertension Lumbar stenosis with neurogenic claudication Lymphoma non-hodgkin lymphoma 2017 Nephrolithiasis Osteoarthritis Peripheral neuropathy Port-A-Cath in place Recurrent UTI Rosacea Scoliosis Spinal stenosis Stage 3 chronic kidney disease monitoring Thyroid nodule Urinary tract infection Vitamin D deficiency Surgical History H/O colonoscopy H/O dilation and curettage multiple H/O: hysterectomy [facility] History of appendectomy with hysterectomy History of back surgery lumbar fusion History of bladder surgery bladder tack History of bronchoscopy History of cardioversion 07/2019 History of esophagogastroduodenoscopy (EGD) History of lobectomy of lung Left upper lobe r/t nodule (granuloma) History of mastectomy right with lymph node removal History of tonsillectomy Nausea and vomiting after administration of anesthetic agent S/P cervical spinal fusion x2 (1970's) unsure of levels. Full ROM S/P cholecystectomy S/P thyroid biopsy negative Family History Mother Coronary heart disease Cancer Atrial fibrillation Father Coronary heart disease Myocardial infarction Cancer Aunt Cancer Other No family history of adverse response to anesthesia Stroke Denies family history of Ovarian cancer Kidney disease Colorectal cancer Social History Preferred Language: Bur[place]ian Communication Ability: Effective Strategic Planning Specialist Required: No Beliefs That Will Affect Care: None marital status: / Current Living Situation: Alone Other Information That Helps Us Care for You: No Feels Safe at Home: Yes Safety Concerns: Feels Safe At This Time Smoking Status: Never smoker Second Hand Exposure: Yes (hx) ; Hx Alcohol Use: No Hx Substance Use: No Physical Exam Physical Exam: Gen.: No acute distress. Alert and oriented. HEENT: Anicteric sclera. Neck: No JVD. No bruits. Normal carotid upstrokes bilaterally. Cardiac: PMI was nonpalpable. No ventricular heave. Irregularly irregular. Rate controlled. Normal S1-S2. No murmurs, rubs, or gallops. Pulmonary: Clear to auscultation bilaterally without wheezes, rales, or rhonchi. Abdomen: Soft, nontender, nondistended, with normoactive bowel sounds. No bruits noted. Extremities: 2+ radial pulses bilaterally. 2+ posterior tibialis pulses bilaterally. Trace bilateral pedal edema. No cyanosis. Psychiatric: Affect appears appropriate. Results & Data ([facility]) Vital Signs (Past 12 Hours) Vital Signs Temp Pulse Pulse Pulse Pulse Pulse Resp 12/06/19 11:37 36.9 C 71 18 12/06/19 10:15 122 H 107 H 92 H 12/06/19 08:00 77 12/06/19 07:46 36.7 C 75 18 12/06/19 03:09 36.4 C L 65 19 Resp Resp Resp BP Pulse Ox Pulse Ox Pulse Ox 12/06/19 11:37 108/57 L 94 12/06/19 10:15 22 20 18 89 L 96 12/06/19 08:00 12/06/19 07:46 132/76 97 12/06/19 03:09 163/80 H 93 Pulse Ox 12/06/19 11:37 12/06/19 10:15 94 12/06/19 08:00 12/06/19 07:46 12/06/19 03:09 Intake & Output 12/04/19 12/05/19 12/06/19 12/07/19 06:59 06:59 06:59 06:59 Intake Total 380 / 380 2535.333 / 2535.333 Output Total 500 / 500 Balance -120 / -120 2535.333 / 2535.333 Weight 90.73 kg 92 kg Laboratory Results Laboratory Results - last 24 hr 12/04/19 12/06/19 12/06/19 13:08 07:43 07:43 WBC 5.48 RBC 3.58 L Hgb 11.7 L Hct 35.1 L MCV 98.0 MCH 32.7 MCHC 33.3 RDW Std Deviation 51.2 H RDW Coeff of Zackary 14.3 Plt Count 112 L MPV 10.1 Immature Gran % (Auto) 0.5 Neut % (Auto) 58.0 Lymph % (Auto) 22.3 [place] % (Auto) 15.0 Eos % (Auto) 3.8 Baso % (Auto) 0.4 Immature Gran # (Auto) 0.03 H Neut # (Auto) 3.18 Lymph # (Auto) 1.22 [place] # (Auto) 0.82 H Eos # (Auto) 0.21 Baso # (Auto) 0.02 Sodium 139 Potassium 4.2 Chloride 110 H Carbon Dioxide 22 Anion Gap 7.0 BUN 15 Creatinine 1.03 Est Cr Clr Drug Dosing 48.7 Est GFR ( Amer) 59.9 Est GFR (Non-Af Amer) 51.7 BUN/Creatinine Ratio 14.1 Glucose 113 H Calcium 8.4 L Phosphorus 2.2 L Magnesium 1.7 L Total Bilirubin 0.5 AST 51 H ALT 36 Alkaline Phosphatase 98 Total Protein 6.3 L Albumin 3.0 L Globulin 3.3 Albumin/Globulin Ratio 0.9 SARS-CoV-2 RNA (RT-PCR) NEGATIVE Diagnostic Findings On 12/06/2019, chart, labs, stress echo report, cardioversion report reviewed. Telemetry and ECGs personally reviewed. Telemetry personally reviewed: Atrial fibrillation with reasonable heart rate control. Cardioversion 07/10/2019: Converted to sinus rhythm with 200 joules. Dobutamine stress echo 11/12/2019: Negative for ischemia 90% MPHR. Negative ECG. Normal LV systolic function and wall motion at rest with EF of 60%. No significant valvular abnormalities reported. ECG personally reviewed: ECG 12/04/2019: Atrial fibrillation [address]/T-wave abnormality. Chest x-ray 12/04/2019: No acute process per Radiology. Medications Administered Current Inpatient Medications Acetaminophen (Tylenol) 1,000 mg PO HS [facility] Stop: 01/03/20 20:59 Last Admin: 12/05/19 20:47 Dose: 1,000 mg Documented by: Acetaminophen (Tylenol) 650 mg PO Q4H PRN PRN Reason: Pain or Fever Stop: 01/03/20 20:19 Last Admin: 12/06/19 08:52 Dose: 650 mg Documented by: Amlodipine Besylate (Norvasc) 2.5 mg PO QAM [facility] Stop: 01/04/20 08:59 Last Admin: 12/06/19 08:47 Dose: 2.5 mg Documented by: Apixaban (Eliquis) 5 mg PO BID [facility] Stop: 01/03/20 20:59 Last Admin: 12/06/19 08:49 Dose: 5 mg Documented by: Cyanocobalamin (Vitamin B-12) 1,000 mcg PO HS [facility] Stop: 01/03/20 20:59 Last Admin: 12/05/19 20:47 Dose: 1,000 mcg Documented by: Fish Oil ([place]-3 (Purified Fish Oil)) 1 gm PO QAM [facility] Stop: 01/04/20 08:59 Last Admin: 12/06/19 08:49 Dose: 1 gm Documented by: Flecainide Acetate (Tambocor) 100 mg PO Q12H [facility] Stop: 01/03/20 20:59 Last Admin: 12/06/19 08:50 Dose: 100 mg Documented by: Heparin Sodium (Beef Lung) (Heparin Sod 10 Unit/Ml Flush) 5 ml FLUSH PRN PRN PRN Reason: Flush Stop: 01/04/20 23:19 Heparin Sodium (Porcine) (Heparin Sod 100 Unit/Ml Flush) 5 ml FLUSH PRN PRN PRN Reason: Flush Stop: 01/04/20 00:29 Last Admin: 12/06/19 12:27 Dose: 5 ml Documented by: Potassium Chloride/Sodium Chloride (Normal Saline W/20 Meq Kcl) 20 meq in 1,000 mls @ 80 mls/hr IV .[id number] [facility] Stop: 01/03/20 20:59 Last Admin: 12/05/19 22:14 Dose: 80 mls/hr Documented by: Ketoconazole (Nizoral 2%) 1 appln EXT DAILY [facility] Stop: 12/15/19 08:59 Last Admin: 12/06/19 08:57 Dose: 1 appln Documented by: Loperamide HCl (Imodium) 2 mg PO Q4H PRN PRN Reason: diarrhea Stop: 01/03/20 20:19 Last Admin: 12/05/19 12:04 Dose: 2 mg Documented by: Metoprolol Tartrate (Lopressor) 25 mg PO BID [facility] Stop: 01/03/20 20:59 Last Admin: 12/06/19 08:48 Dose: 25 mg Documented by: Mirabegron (Myrbetriq Er) 50 mg PO QAM [facility] Stop: 01/04/20 08:59 Last Admin: 12/06/19 08:47 Dose: 50 mg Documented by: Multivitamins/Minerals (Caltrate Plus) 1 tab PO QAM [facility] Stop: 01/04/20 08:59 Last Admin: 12/06/19 08:48 Dose: 1 tab Documented by: Ondansetron HCl (Zofran Odt) 4 mg PO QID PRN PRN Reason: Nausea Stop: 01/03/20 20:35 Ondansetron HCl (Zofran) 4 mg IV Q6H PRN PRN Reason: Nausea Stop: 01/03/20 20:19 Last Admin: 12/05/19 08:04 Dose: 4 mg Documented by: Vitamin D (Vitamin D3) 1,000 units PO QAM [facility] Stop: 01/04/20 08:59 Last Admin: 12/06/19 08:49 Dose: 1,000 units Documented by: PG Care Time/CCT Total # of Minutes Spent Total Time Spent with Patient: Total time spent is greater than 50% in coordination of care (as documented) at patient's floor/unit and/or counseling patient: Coding Level of Care Code 17191 Initial Inpt Care Lvl 3 Diagnoses Atrial fibrillation I48.91 Atrial fibrillation type: unspecified MANE (dyspnea on exertion) R06.00 Fever R50.9 (1) Atrial fibrillation Atrial fibrillation type: unspecified Qualified Code(s): I48.91 - Unspecified atrial fibrillation
--- NOTE | 2019-12-06 12:26 | Hospitalist Progress Note ---
Date of Service December 06, 2019 Assessment & Plan (1) Dyspnea on exertion: Marilyn An is a 78 y/o F with PMH significant for A. fib, with previous history of stroke in 2015, recurrent UTIs, and CKD; presented to the hospital for continued exertional shortness of breath in the setting of recent fever with temp of 100F Dypsnea on exertion: - long-standing history of dyspnea on exertion; documented back to cardiology visits since at least mid September - CXR negative for evidence of pulmonary edema or pneumonia, no pneumothorax - Influenza negative - COVID-19 negative - D-dimer negative - EKG on admission demonstrated T wave inversions in the lateral leads - Troponin negative - negative dobutamine stress test on 11/19 - Echocardiogram from 05/2019 demonstrated mild concentric LVH, with preserved LV function, moderately dilated L atrium, mild aortic valve sclerosis, with a mildly dialated IVC - Two-step O2 evaluation: at rest patient sating 94% with HR of 92, during activity patient fell to a minimum of 89% with HR of 122, and then during recovery with pursed lip technique she quickly returned to 96% with HR of 107. - Cardiology consulted: has had dyspnea on exertion dating back to 2015, regardless of rhythm; will attempt cardioversion in AM Fever: - With a reported fever of 100F at her PCP office yesterday - afebrile since admission - lactate on admission 2.2 with down trend to 1.2 following IV fluid supplementation - ESR 14, CRP 0.3, pro-bishnu 0. - Urinalysis demonstrated 1+ protein, 2+ blood, and 3+ leuk esterase - urine culture demonstrated more than three types of organisms present all moderate counts, considered likely mixed skin vinicius - CXR did not demonstrate pneumonia - COVID 19 negative - Lyme titer negative - Influenza negative - Anaplasmosis PCR pending - blood cultures x2 no growth at 24hrs - peripheral smear pending - discontinue ceftriaxone. continue doxy while PS pending. Elevated Transaminase level: - AST is mildly elevated at 64; elevated at 45 a month ago - Imaging of the abdomen with a CT in 07/2019 showed a normal liver - Lyme titer negative - peripheral smear pending Thrombocytopenia: - Platelets mildly low at 113, typically on low end of normal and has been as low as 123 - COVID-19 negative - Anaplasmosis pending A. Fib: - With paroxysmal atrial fibrillation-she is been in atrial fibrillation now for couple of months and does not tolerate it well - Continue Eliquis - Cardiology: has had dyspnea on exertion dating back to 2016, regardless of rhythm; will attempt cardioversion in AM Abnormal EKG: - demonstrated ST depression in Lateral leads; T wave inversion more evident in Anterolateral leads - troponin is negative on admission - negative dobutamine stress test on 11/19 HTN: - continue home amlodipine, metoprolol tartrate CKD Stage 3: - Baseline creatinine is 1.0; on admission Cr 1.23 - likely 2/2 hypovolemia in the setting of decreased oral intake over the last week - Continue gentle IV fluids - Avoid nephrotoxins - continue to monitor Diet: Heart healthy DVT PPx: continue home Eliquis Code Status: DNR/DNI Admission and Anticipated Discharge Date Admission Date: December 04, 2019 Supervising Physician Co-Signing Physician Notes Resident Physician Supervision Note: I independently interviewed and examined the patient and verified the waters history and physical, reviewed labs and image studies, discussed the case with the resident Dr. Cheney and agree with the findings and care plan. Subjective Patient continues to feel short of breath with minimal exertion, no longer has feelings of shortness of breath at rest, but with even short trips to the bathroom she feels winded. Denies chest pain, tightness, palpitations, fever, chills, sweats, and headaches. Review of Systems Review of Systems: All systems reviewed & are unremarkable except as noted in Subjective Physical Exam Constitutional: WD/WN, vitals as above Eyes: PERRL, conjunctivae normal, anicteric sclerae ENMT: external ear and nose normal, oropharynx normal Respiratory: normal respiratory effort, lungs clear to auscultation Cardiovascular: Rate/Rhythm: regular rate and + irregularly irregular Heart Sounds: no gallop, no murmur and no cardiac rub Extremities: no pedal edema Gastrointestinal (Abdomen): normal bowel sounds, soft, nontender, no hepatosplenomegaly Musculoskeletal: no cyanosis or clubbing, extremities motor strength 5/5 Skin: no rashes, warm and dry Psychiatric: A+Ox3, euthymic affect Lymphatic: no cervical or axillary lymphadenopathy Results & Data Results & Data ([facility]) Vital Signs (Past 12 Hours) Vital Signs Temp Pulse Pulse Pulse Pulse Pulse Resp 12/06/19 11:37 36.9 C 71 18 12/06/19 10:15 122 H 107 H 92 H 12/06/19 08:00 77 12/06/19 07:46 36.7 C 75 18 12/06/19 03:09 36.4 C L 65 19 Resp Resp Resp BP Pulse Ox Pulse Ox Pulse Ox 12/06/19 11:37 108/57 L 94 12/06/19 10:15 22 20 18 89 L 96 12/06/19 08:00 12/06/19 07:46 132/76 97 12/06/19 03:09 163/80 H 93 Pulse Ox 12/06/19 11:37 12/06/19 10:15 94 12/06/19 08:00 12/06/19 07:46 12/06/19 03:09 Laboratory Results 12/06/19 12/06/19 12/04/19 Range/Units 07:43 07:43 13:08 WBC 5.48 (4.8-10.8) K/uL RBC 3.58 L (4.2-5.4) M/uL Hgb 11.7 L (12.0-16.0) g/dL Hct 35.1 L (37-47) % MCV 98.0 (80-100) fL MCH 32.7 (25-34) pg MCHC 33.3 (32-36) g/dL RDW Std Deviation 51.2 H (36.4-46.3) fL RDW Coeff of Zackary 14.3 (11.5-14.5) % Plt Count 112 L (130-400) K/uL MPV 10.1 (7.4-10.4) fL Immature Gran % (Auto) 0.5 % Neut % (Auto) 58.0 % Lymph % (Auto) 22.3 % [place] % (Auto) 15.0 % Eos % (Auto) 3.8 % Baso % (Auto) 0.4 % Immature Gran # (Auto) 0.03 H (0.00-0.02) K/uL Neut # (Auto) 3.18 (1.4-6.5) K/uL Lymph # (Auto) 1.22 (1.2-3.4) K/uL [place] # (Auto) 0.82 H (0.11-0.59) K/uL Eos # (Auto) 0.21 (0-0.5) K/uL Baso # (Auto) 0.02 (0-0.2) K/uL Sodium 139 (136-145) mmol/L Potassium 4.2 (3.5-5.1) mmol/L Chloride 110 H (98-107) mmol/L Carbon Dioxide 22 (21-32) mmol/L Anion Gap 7.0 (3-11) BUN 15 (7-18) mg/dl Creatinine 1.03 (0.6-1.2) mg/dl Est Cr Clr Drug Dosing 48.7 ml/min Est GFR ( Amer) 59.9 Est GFR (Non-Af Amer) 51.7 BUN/Creatinine Ratio 14.1 (10-20) Glucose 113 H (70-99) mg/dl Calcium 8.4 L (8.5-10.1) mg/dl Phosphorus 2.2 L (2.5-4.9) mg/dl Magnesium 1.7 L (1.8-2.4) mg/dl Total Bilirubin 0.5 (0.2-1) mg/dl AST 51 H (15-37) U/L ALT 36 (12-78) U/L Alkaline Phosphatase 98 (45-117) U/L Total Protein 6.3 L (6.4-8.2) gm/dl Albumin 3.0 L (3.4-5.0) gm/dl Globulin 3.3 (2.5-4.0) gm/dl Albumin/Globulin Ratio 0.9 (0.9-2) SARS-CoV-2 RNA (RT-PCR) NEGATIVE (Negative) Medications Administered Current Inpatient Medications Acetaminophen (Tylenol) 1,000 mg PO HS [facility] Stop: 01/03/20 20:59 Last Admin: 12/05/19 20:47 Dose: 1,000 mg Documented by: Acetaminophen (Tylenol) 650 mg PO Q4H PRN PRN Reason: Pain or Fever Stop: 01/03/20 20:19 Last Admin: 12/06/19 08:52 Dose: 650 mg Documented by: Amlodipine Besylate (Norvasc) 2.5 mg PO QAM [facility] Stop: 01/04/20 08:59 Last Admin: 12/06/19 08:47 Dose: 2.5 mg Documented by: Apixaban (Eliquis) 5 mg PO BID [facility] Stop: 01/03/20 20:59 Last Admin: 12/06/19 08:49 Dose: 5 mg Documented by: Cyanocobalamin (Vitamin B-12) 1,000 mcg PO HS [facility] Stop: 01/03/20 20:59 Last Admin: 12/05/19 20:47 Dose: 1,000 mcg Documented by: Fish Oil ([place]-3 (Purified Fish Oil)) 1 gm PO QAM [facility] Stop: 01/04/20 08:59 Last Admin: 12/06/19 08:49 Dose: 1 gm Documented by: Flecainide Acetate (Tambocor) 100 mg PO Q12H [facility] Stop: 01/03/20 20:59 Last Admin: 12/06/19 08:50 Dose: 100 mg Documented by: Heparin Sodium (Beef Lung) (Heparin Sod 10 Unit/Ml Flush) 5 ml FLUSH PRN PRN PRN Reason: Flush Stop: 01/04/20 23:19 Heparin Sodium (Porcine) (Heparin Sod 100 Unit/Ml Flush) 5 ml FLUSH PRN PRN PRN Reason: Flush Stop: 01/04/20 00:29 Potassium Chloride/Sodium Chloride (Normal Saline W/20 Meq Kcl) 20 meq in 1,000 mls @ 80 mls/hr IV .[id number] [facility] Stop: 01/03/20 20:59 Last Admin: 12/05/19 22:14 Dose: 80 mls/hr Documented by: Ketoconazole (Nizoral 2%) 1 appln EXT DAILY [facility] Stop: 12/15/19 08:59 Last Admin: 12/06/19 08:57 Dose: 1 appln Documented by: Loperamide HCl (Imodium) 2 mg PO Q4H PRN PRN Reason: diarrhea Stop: 01/03/20 20:19 Last Admin: 12/05/19 12:04 Dose: 2 mg Documented by: Metoprolol Tartrate (Lopressor) 25 mg PO BID [facility] Stop: 01/03/20 20:59 Last Admin: 12/06/19 08:48 Dose: 25 mg Documented by: Mirabegron (Myrbetriq Er) 50 mg PO QAM [facility] Stop: 01/04/20 08:59 Last Admin: 12/06/19 08:47 Dose: 50 mg Documented by: Multivitamins/Minerals (Caltrate Plus) 1 tab PO QAM [facility] Stop: 01/04/20 08:59 Last Admin: 12/06/19 08:48 Dose: 1 tab Documented by: Ondansetron HCl (Zofran Odt) 4 mg PO QID PRN PRN Reason: Nausea Stop: 01/03/20 20:35 Ondansetron HCl (Zofran) 4 mg IV Q6H PRN PRN Reason: Nausea Stop: 01/03/20 20:19 Last Admin: 12/05/19 08:04 Dose: 4 mg Documented by: Vitamin D (Vitamin D3) 1,000 units PO QAM [facility] Stop: 01/04/20 08:59 Last Admin: 12/06/19 08:49 Dose: 1,000 units Documented by: Resident Activity Tracking Resident Involvement: Resident Care Provided Care Provided: Adult Hospital Medicine
--- NOTE | 2019-12-06 14:44 | Anesthesiology Consultation ---
Date of Service December 06, 2019 Assessment & Plan (1) Encounter for pre-operative examination: Chart Review Chart Review: Acceptable Risk for Surgery History Height/Weight Height: 5 ft 4 in Weight: 92 kg Allergies Allergy/AdvReac Type Severity Reaction Status Date / Time dexamethasone Allergy Severe Shortness Verified 12/04/19 13:22 of Breath, throat constriction Sulfa (Sulfonamide Allergy Severe HIVES Verified 12/04/19 13:22 Antibiotics) adhesive tape Allergy Intermediate redness, Verified 12/04/19 13:22 irritation, peels skin off amoxicillin Allergy Unknown hives Verified 12/04/19 13:22 azithromycin Allergy Unknown Hives Verified 12/04/19 13:22 [From Zithromax Z-Siddhartha] clavulanic acid Allergy Unknown hives Verified 12/04/19 13:22 meperidine Allergy Unknown HIVES Verified 12/04/19 13:22 Penicillins Allergy Unknown hives Verified 12/04/19 13:22 ciprofloxacin [From Cipro] AdvReac Severe Vomiting Verified 12/04/19 13:22 codeine AdvReac Unknown NAUSEA AND Verified 12/04/19 13:22 VOMITING ketorolac AdvReac Unknown 'increased Verified 12/04/19 13:22 bleeding' Medications Home Medications Medication Instructions Recorded Confirmed Last Taken ondansetron HCl 4 mg tablet 4 mg PO QID PRN 01/02/19 12/04/19 07/31/19 acetaminophen 500 mg tablet 1,000 mg PO HS tab 06/03/19 12/04/19 12/03/19 amlodipine [Norvasc] 2.5 mg PO QAM 07/08/19 12/04/19 07/30/19 Eliquis 5 mg PO BID 07/31/19 12/04/19 12/04/19 calcium carbonate-vitamin D3 1 tab PO QAM 07/31/19 12/04/19 12/03/19 [Calcium with Vitamin D] cholecalciferol (vitamin D3) 1,000 units PO QAM 07/31/19 12/04/19 12/03/19 cinnamon bark 1,000 mg PO QAM 07/31/19 12/04/19 12/03/19 cyanocobalamin (vitamin B-12) 1,000 mcg PO HS 07/31/19 12/04/19 12/03/19 omega-3 acid ethyl esters 1 cap PO QAM 07/31/19 12/04/19 12/04/19 metoprolol tartrate 25 mg tablet 25 mg PO BID #180 tab 10/10/19 12/04/19 12/04/19 furosemide 20 mg tablet 40 mg PO QAM PRN #180 tab 10/15/19 12/04/19 Unknown loperamide 2 mg capsule 2 mg PO Q4H PRN #30 cap 10/19/19 12/04/19 Unknown flecainide 100 mg tablet 100 mg PO Q12H #60 tab 11/20/19 12/04/19 12/04/19 ketoconazole 1 applic TOPICAL DAILY PRN 11/26/19 12/04/19 Unknown mirabegron [Myrbetriq] 50 mg PO QAM 12/04/19 12/04/19 12/04/19 Active Medications Generic Name Dose Route Start Last Admin Trade Name Freq PRN Reason Stop Dose Admin Acetaminophen 1,000 mg 12/04/19 21:00 12/05/19 20:47 Tylenol PO 01/03/20 20:59 1,000 mg HS [place] Administration Acetaminophen 650 mg 12/04/19 20:20 12/06/19 08:52 Tylenol PO 01/03/20 20:19 650 mg Q4H PRN Administration Pain or Fever Amlodipine Besylate 2.5 mg 12/05/19 09:00 12/06/19 08:47 Norvasc PO 01/04/20 08:59 2.5 mg QAM [place] Administration Apixaban 5 mg 12/04/19 21:00 12/06/19 08:49 Eliquis PO 01/03/20 20:59 5 mg BID [place] Administration Cyanocobalamin 1,000 mcg 12/04/19 21:00 12/05/19 20:47 Vitamin B-12 PO 01/03/20 20:59 1,000 mcg HS [place] Administration Fish Oil 1 gm 12/05/19 09:00 12/06/19 08:49 [place]-3 (Purified Fish Oil) PO 01/04/20 08:59 1 gm QAM [place] Administration Flecainide Acetate 100 mg 12/04/19 21:00 12/06/19 08:50 Tambocor PO 01/03/20 20:59 100 mg Q12H [place] Administration Heparin Sodium (Porcine) 5 ml 12/05/19 00:22 12/06/19 12:27 Heparin Sod 100 Unit/Ml Flush FLUSH 01/04/20 00:29 5 ml PRN PRN Administration Flush Potassium Chloride/Sodium Chloride 20 meq in 1,000 mls @ 80 mls/hr 12/04/19 21:00 12/06/19 09:44 Normal Saline W/20 Meq Kcl IV 01/03/20 20:59 0 mls/hr .[id number] [place] Infusion Ketoconazole 1 appln 12/05/19 09:00 12/06/19 08:57 Nizoral 2% EXT 12/15/19 08:59 1 appln DAILY [place] Administration Loperamide HCl 2 mg 12/04/19 20:20 12/05/19 12:04 Imodium PO 01/03/20 20:19 2 mg Q4H PRN Administration diarrhea Metoprolol Tartrate 25 mg 12/04/19 21:00 12/06/19 08:48 Lopressor PO 01/03/20 20:59 25 mg BID [place] Administration Mirabegron 50 mg 12/05/19 09:00 12/06/19 08:47 Myrbetriq Er PO 01/04/20 08:59 50 mg QAM [place] Administration Multivitamins/Minerals 1 tab 12/05/19 09:00 12/06/19 08:48 Caltrate Plus PO 01/04/20 08:59 1 tab QAM [place] Administration Ondansetron HCl 4 mg 12/04/19 20:20 12/05/19 08:04 Zofran IV 01/03/20 20:19 4 mg Q6H PRN Administration Nausea Vitamin D 1,000 units 12/05/19 09:00 12/06/19 08:49 Vitamin D3 PO 01/04/20 08:59 1,000 units QAM [place] Administration Past Medical History Medical History Abnormal EKG Acid reflux disease Anticoagulant long-term use Anxiety no medication Atrial fibrillation Atrial tachycardia Chronic pain of left upper extremity Degenerative disc disease Fungal infection of skin under left breast -- using cream and following with PCP Generalized weakness History of breast cancer right breast cancer History of stroke "minor one" no deficits 2014 Hypertension Lumbar stenosis with neurogenic claudication Lymphoma non-hodgkin lymphoma 2017 Nephrolithiasis Osteoarthritis Peripheral neuropathy Port-A-Cath in place Recurrent UTI Rosacea Scoliosis Spinal stenosis Stage 3 chronic kidney disease monitoring Thyroid nodule Urinary tract infection Vitamin D deficiency Past Family History Family History Mother Coronary heart disease Cancer Atrial fibrillation Father Coronary heart disease Myocardial infarction Cancer Aunt Cancer Other No family history of adverse response to anesthesia Stroke Denies family history of Ovarian cancer Kidney disease Colorectal cancer Past Surgical History Surgical History H/O colonoscopy H/O dilation and curettage multiple H/O: hysterectomy [facility] History of appendectomy with hysterectomy History of back surgery lumbar fusion History of bladder surgery bladder tack History of bronchoscopy History of cardioversion 07/2019 History of esophagogastroduodenoscopy (EGD) History of lobectomy of lung Left upper lobe r/t nodule (granuloma) History of mastectomy right with lymph node removal History of tonsillectomy Nausea and vomiting after administration of anesthetic agent S/P cervical spinal fusion x2 () unsure of levels. Full ROM S/P cholecystectomy S/P thyroid biopsy negative Social History Smoking Status: Never smoker Hx Alcohol Use: No Hx Substance Use: No substance use type: does not use Physical Exam Vital Signs Last Vital Signs Temp 36.9 C 12/06/19 11:37 Pulse 71 12/06/19 11:37 Resp 18 12/06/19 11:37 BP 108/57 L 12/06/19 11:37 Pulse Ox 94 12/06/19 11:37 Testing Laboratory Results 12/06/19 07:43 12/06/19 07:43 PT 12.1 Seconds (9.0-12.0) H 12/04/19 13:07 INR 1.2 (0.9-1.1) H 12/04/19 13:07 APTT 35.4 Seconds (21.0-31.0) H 12/04/19 13:07 Urine Color Yellow 12/04/19 15:50 Urine Appearance Slightly Cloudy (Clear) 12/04/19 15:50 Urine pH 6.0 (4.5-7.5) 12/04/19 15:50 Ur Specific [place] 1.025 (1.000-1.030) 12/04/19 15:50 Urine Protein 1+ (Negative) H 12/04/19 15:50 Urine Glucose (UA) Negative (Negative) 12/04/19 15:50 Urine Ketones Negative (Negative) 12/04/19 15:50 Urine Nitrite Negative (Negative) 12/04/19 15:50 Ur Leukocyte Esterase 3+ (Negative) H 12/04/19 15:50 12/04/19 13:15 Aerobic Blood Culture - Preliminary Blood No growth in Aerobic bottle after 24 hours. Anaerobic Blood Culture - Preliminary No growth in Anaerobic bottle after 24 hours. 12/04/19 13:11 Aerobic Blood Culture - Preliminary Blood No growth in Aerobic bottle after 24 hours. Anaerobic Blood Culture - Preliminary No growth in Anaerobic bottle after 24 hours. 12/04/19 15:50 Urine Culture - Final Urine,Clean Catch More than three types of organisms present, all moderate counts mixed probable skin vinicius. No further identifications or sensitivities to follow. Electrocardiogram Date: 12/04/19 Findings: + AFIB @ (68) Chest X-Ray Date: 12/04/19 Findings: + NAD Echocardiogram Date: 06/04/19 LV Function: normal Valvular Disease: + no significant valvular disease
[2019-12-06] MEDS: LOPERAMIDE HCL 2 MG CAP PO PRN (16:08)
[2019-12-06] MEDS: CYANOCOBALAMIN 500 MCG TABLET (VITAMIN B-12) PO SCH (20:27)
[2019-12-06] MEDS: ACETAMINOPHEN 500 MG TAB PO SCH (20:29)
[2019-12-07] MEDS ORDERED: PROPOFOL IV EMULSION 10 MG/ML 20 ML VIAL IV ONE (07:18)
[2019-12-07] MEDS ORDERED: LIDOCAINE HCL 2% MPF (LOCAL) 5 ML VIAL INFIL ONE (07:18)
--- NOTE | 2019-12-07 07:46 | Cardioversion ---
Date of Service December 07, 2019 PG Electrical Cardioversion Rp Electrical Cardioversion Report The patient was brought to the laboratory being NPO after midnight and was identified in the laboratory, connected to the recording apparatus including electrocardiographic monitoring, noninvasive blood pressure monitoring and pulse oximetry. Anteroposterior patch electrodes were placed. The patient was anesthetized by the anesthesia department. Once adequate anesthesia was obtained a synchronized biphasic shock was delivered using 200 J with conversion to a sinus rhythm following a long pause and a brief bradycardic period. The patient awoke from the anesthetic without sequela, will be observed briefly and then discharged. Coding Level of Care Code Cardioversion, elective Additional Codes Electrical Cardioversion Report ([id number])
[2019-12-07] MEDS: MIRABEGRON ER 25 MG TAB PO SCH (08:35)
[2019-12-07] MEDS: OMEGA-3 (PURIFIED FISH OIL) 1 GM CAP PO SCH (08:35)
[2019-12-07] MEDS: CHOLECALCIFEROL 1,000 UNITS 25 MCG TAB PO SCH (08:35)
[2019-12-07] MEDS: CALCIUM 600MG + VIT D 400 IU TAB PO SCH (08:35)
--- NOTE | 2019-12-07 08:35 | Anesthesiology Progress Note ---
Date of Service December 07, 2019 Anesthesia Post Procedure Vital Signs Vital Signs: Temp Pulse Pulse Pulse Pulse Pulse Pulse 12/07/19 08:05 56 L 12/07/19 07:50 58 L 12/07/19 07:30 67 12/07/19 07:10 37.2 C 81 12/07/19 04:00 36.8 C 76 12/07/19 00:00 36.5 C 88 12/06/19 16:47 76 12/06/19 15:35 36.7 C 81 12/06/19 11:37 36.9 C 71 12/06/19 10:15 122 H 107 H 92 H Resp Resp Resp Resp BP Pulse Ox Pulse Ox 12/07/19 08:05 16 122/61 93 12/07/19 07:50 16 120/55 L 93 12/07/19 07:30 12/07/19 07:10 16 152/86 H 92 12/07/19 04:00 18 147/85 H 98 12/07/19 00:00 18 136/85 93 12/06/19 16:47 12/06/19 15:35 18 127/73 91 12/06/19 11:37 18 108/57 L 94 12/06/19 10:15 22 20 18 89 L Pulse Ox Pulse Ox 12/07/19 08:05 12/07/19 07:50 12/07/19 07:30 12/07/19 07:10 12/07/19 04:00 12/07/19 00:00 12/06/19 16:47 12/06/19 15:35 12/06/19 11:37 12/06/19 10:15 96 94 Pain Intensity Medial Neck: Pain Intensity: 1 Posterior Neck: Pain Intensity: 1 Transfer of Care Handoff Completed per policy Notes Mental Status: alert / awake / arousable and participated in evaluation Patient Amnestic to Procedure: Yes Nausea / Vomiting: adequately controlled Pain: adequately controlled Airway Patency, RR, SpO2: stable & adequate BP & HR: stable & adequate Hydration State: stable & adequate Anesthetic Complications: no major complications apparent
[2019-12-07] MEDS: APIXABAN 5 MG TABLET PO SCH ×2 (08:36→21:26)
[2019-12-07] MEDS: AMLODIPINE BESYLATE 5 MG TAB PO SCH (08:36)
[2019-12-07] MEDS: METOPROLOL TARTRATE 25 MG TAB PO SCH ×2 (08:36→21:26)
--- NOTE | 2019-12-07 09:58 | Cardiology Progress Note ---
Date of Service December 07, 2019 Assessment & Plan (1) Atrial fibrillation: (2) MANE (dyspnea on exertion): (3) Anticoagulant long-term use: Admission and Anticipated Discharge Date Admission Date: December 06, 2019 Subjective She is feeling well now several hours after cardioversion. She tells me that she feels better even just sitting down but has not gotten up to walk as yet. Physical Exam Physical Exam: Constitutional: Alert, cooperative and in no distress. HEENT: Unremarkable Neck: No jugular venous distention, carotid pulses are normal and equal bilaterally without bruits. Pulmonary: Clear to auscultation bilaterally. Cardiac: Regular rhythm with no murmur, gallop or rub. Abdomen: Soft, nontender with normal bowel sounds. Extremities: No edema. Distal pulses intact. Neurologic: No focal findings. Gait is steady. Skin: No rash, ecchymoses or petechiae. Results & Data ([facility]) Vital Signs (Past 12 Hours) Vital Signs Temp Pulse Pulse Pulse Resp BP Pulse Ox 12/07/19 08:05 56 L 16 122/61 93 12/07/19 07:50 58 L 16 120/55 L 93 12/07/19 07:30 67 12/07/19 07:10 37.2 C 81 16 152/86 H 92 12/07/19 04:00 36.8 C 76 18 147/85 H 98 12/07/19 00:00 36.5 C 88 18 136/85 93 Laboratory Results Intake and Output 12/06/19 12/07/19 12/07/19 22:59 06:59 14:59 Intake Total 250 / 2030 200 / 2030 Output Total 400 / 400 Balance 250 / 1630 -200 / 1630 Intake: IV 0 / 1030 NORMAL SALINE w/20 MEQ KCL 20 0 / 920 meq In 1,000 ml @ 80 mls/hr IV .[id number] [facility] Rx#:[id number] Oral 250 / 1000 200 / 1000 Output: Urine 400 / 400 Other: Weight 92.3 kg 92.3 kg Patient Weight 12/08/19 06:59 Weight 92.3 kg Diagnostic Findings Telemetry: Sinus rhythm and sinus bradycardia following cardioversion, atrial fibrillation at a controlled rate prior. PG Care Time/CCT Total # of Minutes Spent Total Time Spent with Patient: Total time spent is greater than 50% in coordination of care (as documented) at patient's floor/unit and/or counseling patient: Coding Level of Care Code 78770 Subseq Hosp Care Lvl 3 Diagnoses Atrial fibrillation I48.91 Atrial fibrillation type: unspecified MANE (dyspnea on exertion) R06.00 Anticoagulant long-term use Z79.01 (1) Atrial fibrillation Atrial fibrillation type: unspecified Qualified Code(s): I48.91 - Unspecified atrial fibrillation
[2019-12-07] MEDS: FLECAINIDE ACETATE 100 MG TABLET PO SCH ×2 (13:45→21:25)
[2019-12-07] MEDS: KETOCONAZOLE 2% CR 15 GM TUBE EXT SCH (13:46)
--- NOTE | 2019-12-07 16:15 | Hospitalist Progress Note ---
Date of Service December 07, 2019 Assessment & Plan (1) Dyspnea on exertion: Marilyn An is a 78 y/o F with PMH significant for A. fib, with previous history of stroke in 2015, recurrent UTIs, and CKD; presented to the hospital for continued exertional shortness of breath in the setting of recent fever with temp of 100F. Considering cardiac and pulmonary causes although this could represent deconditioning. 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, also ordered spirometry to evaluate for potential restrictive or obstructive pattern - Influenza negative, COVID-19 negative, D-dimer negative - EKG on admission demonstrated T wave inversions in the lateral leads - Troponin negative - negative dobutamine stress test on 11/19 - Echocardiogram from 05/2019 demonstrated mild concentric LVH, with preserved LV function, moderately dilated L atrium, mild aortic valve sclerosis, with a mildly dialated IVC - Cardiology consulted: has had dyspnea on exertion dating back to 2015, regardless of rhythm; cardioversion performed this AM, patient is noticing relief. - Two-step O2 evaluation: desaturated to 88 upon walking Fever: - With a reported fever of 100F at her PCP office yesterday - afebrile since admission - lactate on admission 2.2 down trended to 1.2 following IV fluid supplementation - ESR 14, CRP 0.3, pro-bishnu 0. - Urinalysis demonstrated 1+ protein, 2+ blood, and 3+ leuk esterase - urine culture demonstrated more than three types of organisms present all moderate counts, considered likely mixed skin vinicius - CXR did not demonstrate pneumonia - COVID 19 negative - Lyme titer negative - Influenza negative - Anaplasmosis PCR pending - blood cultures x2 no growth to date - peripheral smear pending - discontinue ceftriaxone and Doxycycline Elevated Transaminase level: - AST is mildly elevated at 64; elevated at 45 a month ago - Imaging of the abdomen with a CT in 07/2019 showed a normal liver - Lyme titer negative - peripheral smear pending Thrombocytopenia: - Platelets mildly low at 113, typically on low end of normal and has been as low as 123 - COVID-19 negative A. Fib: - With paroxysmal atrial fibrillation-she is been in atrial fibrillation now for couple of months and does not tolerate it well - Continue Eliquis - Cardiology: has had dyspnea on exertion dating back to 2016, - s/p cardioversion, in NSR Abnormal EKG: - demonstrated ST depression in Lateral leads; T wave inversion more evident in Anterolateral leads - troponin is negative on admission - negative dobutamine stress test on 11/19 HTN: - continue home amlodipine, metoprolol tartrate CKD Stage 3: - Baseline creatinine is 1.0; on admission Cr 1.23 - likely 2/2 hypovolemia in the setting of decreased oral intake over the last week - Continue gentle IV fluids - continue to monitor Diet: Heart healthy DVT PPx: continue home Eliquis Code Status: DNR/DNI Admission and Anticipated Discharge Date Admission Date: December 06, 2019 Supervising Physician Co-Signing Physician Notes I personally examined the patient and verified all waters points of history and exam, discussed case, and agree with decision making with Dr Zamora. feeling better after cardioversion - notes she did PT and felt better than before, far less MANE - although did not have pulse ox checked that she was aware of. later nursing notified dr zamora of drop in pulse ox when walking. vitals noted nad heent nc at mmm breathing unlabored no accessory muscles good effort skin no rashes no pallor or icterus neuro no focal deficits MANE - feels better after cardioversion, but doubt rate controlled afib would explain hypoxia (particularly in the absence of pulmonary edema), even if it would explain the sensation of dyspnea -- CT chest to eval lung parenchyma, spirometry. otherwise as above Subjective She is doing well this morning. She was up for a walk up the stairs with therapy. She was hoping to go home today because her granddaughter is able to pick her up today but normally works nights and is not able to. She is turning 79 in a few weeks and is hopeful that she is going to feel well for a celebration. Review of Systems Review of Systems: Constitutional - denies: fevers, chills Cardiac - denies: chest pain palpitations Pulmonary - admits: dry cough, denies: sputum production Neuro - denies: headache - denies: urinary frequency, urgency, or pain with urination Physical Exam Constitutional: well developed and well nourished; no acute distress Eyes: PERRL, conjunctivae normal, anicteric sclerae ENMT: external ear and nose normal, oropharynx normal Neck: normal visual inspection Respiratory: normal respiratory effort, lungs clear to auscultation Cardiovascular: RRR, no murmur, no edema trace edema bilaterally in the lower extremity Gastrointestinal (Abdomen): normal bowel sounds, soft, nontender, no hepatosplenomegaly Skin: no rashes, warm and dry Neurologic: no focal motor deficits Speech / Cognition: normal speech Psychiatric: A+Ox3, euthymic affect Results & Data Results & Data ([facility]) Vital Signs (Past 12 Hours) Vital Signs Temp Pulse Pulse Pulse Resp BP Pulse Ox 12/07/19 15:26 37.1 C 72 18 131/65 91 12/07/19 11:22 37.6 C H 60 16 111/55 L 92 12/07/19 08:05 56 L 16 122/61 93 12/07/19 07:50 58 L 16 120/55 L 93 12/07/19 07:30 67 12/07/19 07:10 37.2 C 81 16 152/86 H 92 Resident Activity Tracking Resident Involvement: Resident Care Provided Care Provided: Adult Hospital Medicine
--- NOTE | 2019-12-07 16:44 | Billing Data ---
Date of Service December 07, 2019 Coding Level of Care Code 89823 Subseq Hosp Care Lvl 3
[2019-12-07] MEDS ORDERED: IOVERSOL 100ml IV PRN (17:58)
--- NOTE | 2019-12-07 18:15 | CT Scan Report ---
CHEST CT WITH CONTRAST CT DOSE: 801.20 mGycm HISTORY: Acute shortness of breath dyspnea, desaturation TECHNIQUE: Multiaxial CT images of the chest were performed following the IV administration of 93 cc of Optiray 320. A dose lowering technique was utilized adhering to the principles of ALARA. COMPARISON: Chest radiograph 12/04/2019, chest CT 12/24/2017 FINDINGS: Unremarkable thyroid. Left subclavian Eeaipx-m-Cqqs catheter distal tip terminates within the right a trium. Moderate cardiomegaly. No pericardial effusion. Extensive coronary artery calcifications. Calc ified plaque of the thoracic aorta. No thoracic aortic aneurysm. The opacified pulmonary artery appea rs unremarkable. No central pulmonary emboli are identified. Calcified left hilar lymph nodes. Trace pleural effusions, right greater than left. No pneumothorax. Mild to moderate emphysema. Pleura l parenchymal scarring of the left upper lobe and lingula with postoperative changes compatible with prior resection. Mild subsegmental bibasilar atelectasis. There is mild intralobular septal thickenin g of the lung bases, right greater than left. Mild nonspecific bronchial wall thickening. No airspace consolidation typical for pneumonia. Central airways appear patent. Nonspecific mild wall thickening of the distal esophagus. Soft tissues are unremarkable. Prior right mastectomy. Surgical clips of the right axilla suggestive of prior marcela dissection. Streak artifact from thoracolumbar fusion hardware. The pedicle screws at T11 extend into the T10-T11 disc space. Tho racic dextroscoliosis. IMPRESSION: 1. Cardiomegaly with mild pulmonary edema and trace pleural effusions. 2. Mild bibasilar groundglass densities suggest associated atelectasis. 3. Emphysema with prior left upper lobe resection. 4. Additional findings as above. ACT 112: Negative or not required by law. Electronically signed by: Galindo Barroso M.D. 12/07/2019 6:14 PM
[2019-12-07] MEDS: ACETAMINOPHEN 325 MG TAB PO PRN (18:31)
[2019-12-07] MEDS: ACETAMINOPHEN 500 MG TAB PO SCH (21:29)
[2019-12-07] MEDS: CYANOCOBALAMIN 500 MCG TABLET (VITAMIN B-12) PO SCH (21:29)
--- NOTE | 2019-12-07 22:43 | Electrocardiogram Report ---
Test Reason : Blood Pressure : / mmHG Vent. Rate : 058 BPM Atrial Rate : 058 BPM P-R Int : 222 ms QRS Dur : 094 ms QT Int : 314 ms P-R-T Axes : 076 043 109 degrees QTc Int : 308 ms Sinus bradycardia with 1st degree A-V block Nonspecific ST and T wave abnormality Abnormal ECG When compared with ECG of 04-DEC-2019 12:48, Sinus rhythm has replaced Atrial fibrillation Nonspecific T wave abnormality has replaced inverted T waves in Anterolateral leads QT has shortened Confirmed by Trevin Mccarthy ([id number]) on 12/07/2019 10:43:40 PM Referred By: REFERRED SELF Confirmed By:Trevin Mccarthy
[2019-12-08] MEDS: KETOCONAZOLE 2% CR 15 GM TUBE EXT SCH (08:46)
[2019-12-08] MEDS: MIRABEGRON ER 25 MG TAB PO SCH (08:48)
[2019-12-08] MEDS: APIXABAN 5 MG TABLET PO SCH (08:48)
[2019-12-08] MEDS: CALCIUM 600MG + VIT D 400 IU TAB PO SCH (08:48)
[2019-12-08] MEDS: AMLODIPINE BESYLATE 5 MG TAB PO SCH (08:48)
[2019-12-08] MEDS: METOPROLOL TARTRATE 25 MG TAB PO SCH (08:48)
[2019-12-08] MEDS: CHOLECALCIFEROL 1,000 UNITS 25 MCG TAB PO SCH (08:49)
[2019-12-08] MEDS: OMEGA-3 (PURIFIED FISH OIL) 1 GM CAP PO SCH (08:49)
[2019-12-08] MEDS: FLECAINIDE ACETATE 100 MG TABLET PO SCH (08:49)
[2019-12-08] MEDS ORDERED: FUROSEMIDE 40 MG TAB PO ONE (10:46)
--- NOTE | 2019-12-08 17:40 | Discharge Summary ---
Date of Service December 08, 2019 Admission HPI Per Admitting Provider This patient is a 78-year-old female with a history of paroxysmal atrial fibrillation on Eliquis, diffuse large B cell lymphoma in remission, breast cancer, CKD stage III, hyperlipidemia, CVA, GERD, lumbar stenosis, and history of UTIs who presented to the ER with myalgias and worsening arthralgias, low appetite and progressively worsening generalized weakness for the last 2 days. She has been having chills. She has been feeling more dyspneic especially with exertion over the last few weeks and in fact saw cardiology for this 2 weeks ago and was placed on flecainide to try to chemically cardiovert her atrial fib rillation back to a sinus rhythm. She had a dobutamine stress echo which was negative for inducible ischemia at that time also. However, she feels her dyspnea is much worse in the last 2 days with her other symptoms as above. She denies any chest pain. She reports she has been chronically coughing since she has been back in atrial fibrillation for quite some time, productive of white sputum. She denies any nausea or vomiting, and has chronic intermittent loose stools but no overt diarrhea. [place] and walks through the grass around her house but is not aware of any recent tick bites. She went to her PCPs office today and was screened in the parking lot and found to have a fever of 100 F and she was sent to the ER for work-up to include COVID testing. In the ER, she was found to be afebrile, but was intermittently tachycardic and tachypneic with exertion such as getting up to go to the bathroom. That minimal exertion caused her significant dyspnea and her pulse ox reportedly dropped to 90% with walking. She had a work-up to include a CBC which showed a mild thrombocytopenia, BMP was within normal limits, troponin was negative, her AST was mildly elevated at 64 which was higher than previous. A flu swab was negative. A chest x-ray was negative, and a COVID 19 test was performed and pending at the time of admission. Her urinalysis showed 1+ protein, 2+ blood, 3+ leukocyte esterase- microscopy was not performed. She was treated with a dose of IV ceftriaxone, 1 L of normal saline. She will be admitted on observation for nonspecific febrile illness, with dyspnea, and possible UTI. Admission Exam Per Admitting Provider Constitutional: WD/WN, vitals as above + ill appearing and + obese Eyes: PERRL, conjunctivae normal, anicteric sclerae ENMT: external ear and nose normal, oropharynx normal Neck: trachea midline, no thyromegaly Respiratory: normal respiratory effort, lungs clear to auscultation Cardiovascular: Rate/Rhythm: regular rate and + irregularly irregular Heart Sounds: no murmur Vessels: dorsalis pedis pulses present Extremities: no calf tenderness and no edema Chest (Breasts): Chest: + vascular access device or port (Left anterior chest-no surrounding erythema) Breast: + abnormal inspection of breast (With right mastectomy) Gastrointestinal (Abdomen): normal bowel sounds, soft, nontender, no hepatosplenomegaly Musculoskeletal: Extremities: extremities normal to inspection; no cyanosis and no clubbing Skin: no rashes, warm and dry Neurologic: moves all extremities and awake; no focal motor deficits Psychiatric: A+Ox3, euthymic affect Lymphatic: no lymphedema Principal Diagnosis MANE - multifactorial Discharge Exam Constitutional well developed and well nourished; no acute distress Eyes PERRL, conjunctivae normal, anicteric sclerae ENMT external ear and nose normal, oropharynx normal Neck normal visual inspection Respiratory normal respiratory effort, lungs clear to auscultation Cardiovascular RRR, no murmur, no edema Gastrointestinal (Abdomen) normal bowel sounds, soft, nontender, no hepatosplenomegaly Skin no rashes, warm and dry Neurologic no focal motor deficits Speech / Cognition: normal speech Psychiatric A+Ox3, euthymic affect Discharge Data Allergies Allergy/AdvReac Type Severity Reaction Status Date / Time dexamethasone Allergy Severe Shortness Verified 12/04/19 13:22 of Breath, throat constriction Sulfa (Sulfonamide Allergy Severe HIVES Verified 12/04/19 13:22 Antibiotics) adhesive tape Allergy Intermediate redness, Verified 12/04/19 13:22 irritation, peels skin off amoxicillin Allergy Unknown hives Verified 12/04/19 13:22 azithromycin Allergy Unknown Hives Verified 12/04/19 13:22 [From Zithromax Z-Siddhartha] clavulanic acid Allergy Unknown hives Verified 12/04/19 13:22 meperidine Allergy Unknown HIVES Verified 12/04/19 13:22 Penicillins Allergy Unknown hives Verified 12/04/19 13:22 ciprofloxacin [From Cipro] AdvReac Severe Vomiting Verified 12/04/19 13:22 codeine AdvReac Unknown NAUSEA AND Verified 12/04/19 13:22 VOMITING ketorolac AdvReac Unknown 'increased Verified 12/04/19 13:22 bleeding' Consultations 12/04/19 16:58 ED Decision to Admit Stat 12/04/19 20:20 Consult Case Management - Discharge Planning Routine 12/05/19 13:53 Consult Cardiology Routine 12/06/19 12:14 Consult Anesthesiology Routine 12/08/19 16:56 Consult Case Management - Discharge Planning Routine Procedures Performed Operation Date: 12/07/19 07:30 Actual Procedures p Cardioversion - Ja Kiran MD Ordered Studies 12/07/19 16:40 CT chest w con Routine Hospital Course (1) Dyspnea on exertion: Marilyn An is a 78 y/o F with PMH significant for A. fib, with previous history of stroke in 2014, recurrent UTIs, and CKD; presented to the hospital for continued exertional shortness of breath in the setting of recent fever with temp of 100F at her primary care office. Considered possible mixed picture with elements of cardiac and pulmonary causes although this could also represent some degree of deconditioning. Dyspnea on exertion: - long-standing history of dyspnea on exertion; documented back to cardiology visits since at least mid September - CXR negative for evidence of pulmonary edema or pneumonia, no pneumothorax, - EKG on admission demonstrated T wave inversions in the lateral leads - Troponin negative - negative dobutamine stress test on 11/19 - Echocardiogram from 05/2019 demonstrated mild concentric LVH, with preserved LV function, moderately dilated L atrium, mild aortic valve sclerosis, with a mildly dilated IVC - Cardiology consulted: has had dyspnea on exertion dating back to 2015, regardless of rhythm; cardioversion performed this AM, patient is noticed relief. - Two-step O2 evaluation: desaturated to 89, unable to qualify for home 02 - Ordered a CT w/ IV contrast to further evaluate a pulmonary cause of her dyspnea and she was found to have emphysema and spirometry showed an obstructive pattern - started on Spiriva for mild - moderate COPD - Influenza negative, COVID-19 negative, D-dimer negative Fever: - reported fever of 100F at her PCP office yesterday - afebrile throughout admission - lactate on admission 2.2 down trended to 1.2 following IV fluid supplemen tation - ESR 14, CRP 0.3, pro-bishnu 0. - Urinalysis demonstrated 1+ protein, 2+ blood, and 3+ leuk esterase - urine culture demonstrated more than three types of organisms present all moderate counts, considered likely mixed skin vinicius - CXR did not demonstrate pneumonia - COVID 19 negative - Lyme titer negative - Influenza negative - Anaplasmosis PCR pending - blood cultures x2 no growth to date - peripheral smear pending - discontinued initial empiric ceftriaxone and Doxycycline Elevated Transaminase level: - AST is mildly elevated at 64; elevated at 45 a month ago - Imaging of the abdomen with a CT in 07/2019 showed a normal liver - Lyme titer negative - peripheral smear pending Thrombocytopenia: - Platelets mildly low at 113, typically on low end of normal and has been as low as 123 - COVID-19 negative A. Fib: - With paroxysmal atrial fibrillation-she is been in atrial fibrillation now for couple of months and does not tolerate it well - Continue Eliquis - Cardiology: has had dyspnea on exertion dating back to 2015, - s/p cardioversion, in NSR Abnormal EKG: - demonstrated ST depression in Lateral leads; T wave inversion more evident in Anterolateral leads - troponin is negative on admission - negative dobutamine stress test on 11/19 HTN: - continue home amlodipine, metoprolol tartrate CKD Stage 3: - Baseline creatinine is 1.0; on admission Cr 1.23 - likely 2/2 hypovolemia in the setting of decreased oral intake over the last week Total Time Total Time Spent Total Time Spent (In Minutes): >30 Discharge Plan Discharge Items Patient Disposition: Home - Self-Care Reason For Visit: FEVER,SOB Discharge Diagnosis: resolved atrial fibrillation Activity: Per Instructions section Non-emergency contact: Primary Care Provider Call non-emergency contact if: your symptoms worsen Follow-up/Referrals: Li Miner MD [Primary Care Provider] - 12/15/19 11:30 am (Please, follow up with Dr. Miner on SaturdayDecember 14 at 11:30 am. *If you need to change this appointment, call the office at [phone].) Diet: Regular Addtl Attending Provider Instructions: Trouble breathing: You were admitted to the hospital to evaluate you for your worsening trouble breathing with activity. You had normal labs looking at your heart and to evaluate for clots of your lungs. You had a cardioversion with Dr. Kiran on 12/06 that resolved your atrial fibrillation. You were in normal sinus rhythm after the cardioversion and while in the hospital. You felt improvement after the cardioversion. We then did a CT of your chest to further evaluate you when you had a desaturation of your oxygen saturation to [address] chest showed that you had emphysema, mild fluid and compression of the lungs from poor inspiration. Emphysema You did a lung function tests to further evaluate your lungs. This tests showed that you have an obstructive pattern. This means that you have air that is trapped in your lungs when you breath. Another name for this is chronic obstructive pulmonary disease or COPD. This likely is contributing to your difficulty breathing. We will be sending you home with a new medication called José Migueleva to address your lung disease. You will also need to follow up with your primary care doctor on any other changes they would like to make in the future. Exercise When you go home it will be important for you to poultry picker a pulse oximeter that should be available at any pharmacy. We will want you to call or connect with either you primary doctor if your oxygen saturation is below 90%. If you are noticing that when you are walking around the house that your oxygen gets below 90%, stop and have a rest before continuing. It is important to continue to exercise including walking. You should slowly increase your exercising by adding a little bit and progressing slowly from shorter walks to longer walks. Slowly increasing the amount that you walk will help to expand your lungs and improve the compression seen on the CT, walking will also help you in the longer term to improve your ability to be functional and mobile as long as possible. Fluid There was some fluid that was seen of the CT of your chest, and you did have some swelling of your legs. We did give you your normal home dose of your water pill prior to discharge. You can continue to take your water pill that you had taken prior to coming to the hospital when you have increased fluid in your legs. Pending Studies at Discharge: No Stand-Alone Forms: Virtual Emergency Department, Important Visit Information Medications and DC Order Prescriptions: New tiotropium bromide 2.5 mcg/actuation mist 2 puffs INH DAILY Qty: 4 RF: 0 Continued metoprolol tartrate 25 mg tablet 25 mg PO BID Qty: 180 RF: 3 loperamide 2 mg capsule 2 mg PO Q4H PRN (Reason: diarrhea) Qty: 30 RF: 2 ondansetron HCl [Zofran] 4 mg tablet 4 mg PO QID PRN (Reason: Nausea) RF: 0 furosemide [Lasix] 20 mg tablet 40 mg PO QAM PRN (Reason: Edema, shortness of breath) Qty: 180 RF: 3 flecainide 100 mg tablet 100 mg PO Q12H Qty: 60 RF: 2 acetaminophen [Tylenol Extra Strength] 500 mg tablet 1,000 mg PO HS RF: 0 amlodipine [Norvasc] 2.5 mg tablet 2.5 mg PO QAM RF: 0 cinnamon bark 500 mg capsule 1,000 mg PO QAM RF: 0 omega-3 acid ethyl esters 1 gram capsule 1 cap PO QAM RF: 0 cholecalciferol (vitamin D3) 1,000 unit tablet 1,000 units PO QAM RF: 0 calcium carbonate-vitamin D3 [Calcium with Vitamin D] 600 mg(1,500mg) -400 unit tablet 1 tab PO QAM RF: 0 Eliquis 5 mg tablet 5 mg PO BID RF: 0 cyanocobalamin (vitamin B-12) 1,000 mcg capsule 1,000 mcg PO HS RF: 0 Myrbetriq 50 mg tablet extended release 24 hr 50 mg PO QAM RF: 0 ketoconazole 2 % Cream 1 applic TOPICAL DAILY PRN (Reason: left breast irritation) RF: 0 Discharge Orders: Discharge Order (Routine); Ordered 12/08/19 Ordered By: Anton Godoy Admission Data Admit Date/Time: 12/06/19 15:17 Attending Provider: Milton Kwong Admit Provider: Deisy Davalos Primary Care Provider: Li Miner Other Providers: Deisy Davalos ; Trevin Mccarthy ; Aury Tinajeor ; Vidhya Zacarias ; Rosalba Burgos ; Izabella Potts ; Alesia Shields ; Frances Gifford ; Jimmy Mohan ; Fam Finch ; Eric Stern ; Braxton Laboy ; Ingris Laboy ; Javier Hyman ; Brinda Henriquez ; Emmanuel Colón ; Moises Carvajal ; Jose Zayas ; Nessa Hurley ; Vishnu Silveira ; Kami Pizano ; Yahaira Silveira ; Collin Rosa ; Amber Michelle ; Nito Forrest ; Maris Sainz ; Helene Barrera ; Amber Al. ; Rowena Buenrostro ; Misael Del Rosario ; Raquel Hudson ; Elsa Love ; Esther Agosto ; April Lincoln ; Pranay Lincoln V ; Harjit Norton ; Rosalba Foster ; Chris Riddle ; Claus Hager ; Yeimy Carmen ; Latonya Jacobo ; Pranay Knowles ; Suman Hurley ; Aman Santiago ; Elza Mejia ; Esther Leigh ; Eric Day ; Abbey Watters ; Nacho Allison ; Ramon Zayas ; Matilde Mitchell ; Adam Swanson ; Rizwana Vega ; Catarino Cage ; Brien Barton ; Yahaira Alves Other Interventions: Discharge Summary Assessment (RN) Last Done: 12/08/19 16:48 DC Date/Time DO NOT enter until pt leaves facility: 12/08/19 17:30 Supervising Physician Co-Signing Physician Notes I personally examined the patient and verified all waters points of history and exam, discussed case, and agree with decision making with Dr Zamora. had ongoing hypoxia w exertion - CT and PFTs reviewed with pt who expressed good understanding. son lidia on speakerphone at time of discussion by pt's request. vitals noted nad heent nc at mmm breathing unlabored no accessory muscles good effort skin no rashes no pallor or icterus neuro no focal deficits MANE - likley multifactorial between COPD/emphysema, afib (and possibly a mild amount of afib related diastolic CHF) and deconditioning COPD/emphysema - start spiriva. likely from second hand smoke exposure. outpt f/u for inhaler titration/escalation if need be afib - now cardioverted. continue meds. likely had small amount of diastolic CHF from afib - continue to follow as outpt deconditioning - likely from above impairing ability to exert with subsequent weakness leading to downward spiral. discussed graded exercse using safety first and pulse ox as a guide. she expressed good understanding. home PT referral. otherwise as above Resident Activity Tracking Resident Involvement: Resident Care Provided Care Provided: Adult Hospital Medicine
--- NOTE | 2019-12-08 18:15 | Billing Data ---
Date of Service December 08, 2019 Coding Level of Care Code D/C Day Management >30 mins
--- NOTE | 2019-12-15 07:34 | Coding Query ---
CONGESTIVE HEART FAILURE Please clarify documentation on Discharge Summary of, " likely had small amount of diastolic CHF from afib - continue to follow as outpt". 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 Please assist us with the following questions. A diagnosis of Diastolic Congestive Heart Failure is documented in the patient's medical record on the Discharge Summary. To accurately code this diagnosis and to compare patient severity, we ask that you specify the type of heart failure by placing an X within the parenthesis (x). DIASTOLIC HEART FAILURE x) Acute ( ) Chronic ( ) Acute on Chronic ( ) Rheumatic ( ) Unknown Was the CHF Present On Admission? Please check the appropriate box: ( x) Present on Admission ( ) Not Present On Admission ( ) Clinically undetermined Thank you Patti JIMENEZ
== END 2019-12-08 17:30 | disposition home or self-care (01) | DRG 204 ==
LOC: 2S 12:03 → ED 12:03 → SUATTDRO 18:01 → 2S 19:11 → 2N 12-05 14:40 → SUATTDRO 12-06 15:17

== ENCOUNTER 2020-02-18 12:17 | Observation (INO) ==
[2020-02-18] MEDS ORDERED: MoRPHine SULFATE 2 MG/ML CARP IV STA (12:37)
[2020-02-18] MEDS ORDERED: ONDANSETRON INJ 2 MG/ML 2 ML VIAL IV STA (12:37)
--- NOTE | 2020-02-18 12:43 | Emergency Department Note ---
Impression & Plan Breath shortness, CHF (congestive heart failure), Back pain, High serum chloride ED Provider Note NAME: SHERI PRATHER AGE: 79 SEX: F : 1940 ARRIVES VIA: Walk-In INFORMANT: Patient ED PROVIDER(S): Milton Bejarano DO CHIEF COMPLAINT: Shortness of breath and back pain HPI: Patient is a 79-year-old female who presents the ER for shortness of breath and back pain. She notes she was cardioverted this past Saturday with Dr. Swift. She was shocked 3 times. Since she got home she has been having left upper thoracic back pain where they shocked her. She denies any chest pain which she was having before while she was in [place]. She notes that she has been getting significantly more short of breath. Shortness of breath is significantly worse with exertion. She denies any belly pain nausea vomiting or diarrhea. No swelling of the cast. No dysuria urgency or frequency. No cough congestion or runny nose. No other exacerbating or remitting factors. Pain in the back is worse upon palpation and laying on it. ROS: See above HPI for pertinent positives & negatives. A total of 10 systems reviewed and were otherwise negative. PAST MEDICAL HISTORY:See Below PAST SURGICAL HISTORY:See Below FAMILY HISTORY:See Below SOCIAL HISTORY:See Below HOME MEDICATIONS:See Below ALLERGIES:See Below VITALS:See Below PHYSICAL EXAMINATION: GENERAL: Sitting up in bed, alert, significant distress unable to talk in complete sentences EYE EXAM: normal conjunctiva. OROPHARYNX: no exudate, no erythema, lips, buccal mucosa, and tongue normal and mucous membranes are moist NECK: supple, no nuchal rigidity, no adenopathy, non-tender LUNGS: Clear to auscultation. Normal chest wall mechanics HEART: no murmurs, S1 normal and S2 normal ABDOMEN: abdomen soft, non-tender, normo-active bowel sounds, no masses, no rebound or guarding. BACK: Back is symmetrical on inspection and there is no deformity, no midline tenderness, no CVA tenderness. SKIN: no rashes and no bruising UPPER EXTREMITIES: upper extremities are grossly normal. LOWER EXTREMITIES: No pitting edema. Calves are equal bilateral NEURO EXAM: Normal sensorium, cranial nerves II-XII grossly intact, normal speech, no gross weakness of arms, no gross weakness of legs. MEDICAL DECISION MAKING: Patient is an 79-year-old female who presents the ER for shortness of breath and back pain. She was cardioverted on Saturday by Dr. Swift. Following that she has had pain over the posterior pad site. She also notes that she has become significantly more short of breath. She walked into the room and was unable to speak more than 1 word at a time was extremely dyspneic. IV was established blood work was obtained. Labs show a mild anemia. No significant leukocytosis. INR unremarkable. BMP with slightly elevated chloride. LFTs bilirubin troponin and lipase was unremarkable. Chest x-ray with mild CHF. Ribs show no fractures. She was given IV morphine with improvement of her pain but was still short of breath. EKG showed no significant acute pathology. She was updated bedside. Discussed with hospitalist admit following dose of Lasix for further work-up. Do favor that the back pain is musculoskeletal in nature about the dyspnea on exertion needs further investigation. Triage Nursing notes reviewed. Prior medical records reviewed Vital Signs: reviewed and remarkable for hypertensive and tachypneic Differential diagnosis: Differential diagnoses includes but is not limited to pneumonia, bronchitis, COPD/Asthma exacerbation, pneumothorax, pulmonary embolism, congestive heart failure, acute coronary syndrome ER treatment provided: See below Diagnostics interpreted by me: ECG: Sinus rhythm rate of 71 Normal axis No PVCs Nonspecific ST wave changes in the high lateral and lateral Normal QTC EKG#2 Sinus rhythm rate of 61 Normal axis No PVCs Normal QTC Septal Q waves Cardiac Monitoring: An order was placed for continuous cardiac monitoring. The monitor shows a rate of 68 with sinus rhythm. Laboratory studies: As stated above and show below. Imaging studies: Chest x-ray and x-rays of the ribs show no acute fractures with some mild pulmonary congestion Consultation(s): Discussed with Dr. Shan Clark for further evaluation ED COURSE: Procedures: none Critical Care: None Past Med/Surg History Medical History Acid reflux disease Anticoagulant long-term use Anxiety no medication Atrial fibrillation NEEDS CARDIOVERSION Atrial tachycardia Chronic pain of left upper extremity SHOULDER Degenerative disc disease Fungal infection of skin under left breast -- using cream and following with PCP GETTING BETTER AND HAS SPOT IN GROIN AREA Generalized weakness History of breast cancer right breast cancer -- CHEMO History of stroke 2014. Small chronic lacunar infarct noted on 03/[address] Hypertension Lumbar stenosis with neurogenic claudication Nephrolithiasis HX OF Non-Hodgkin lymphoma 2017 - CHEMO AND RADIATION Osteoarthritis Peripheral neuropathy Port-A-Cath in place HAS IT FLUSHED EVERY 6 WEEKS Rosacea Scoliosis Spinal stenosis Stage 3 chronic kidney disease monitoring Thyroid nodule Vitamin D deficiency Surgical History H/O colonoscopy H/O dilation and curettage multiple H/O: hysterectomy EVELIA History of appendectomy with hysterectomy History of back surgery lumbar fusion History of bladder surgery bladder tack History of bronchoscopy History of cardioversion 07/2019, 11/2019 History of esophagogastroduodenoscopy (EGD) History of lobectomy of lung Left upper lobe r/t nodule (granuloma) History of mastectomy right with lymph node removal History of tonsillectomy Nausea and vomiting after administration of anesthetic agent S/P cervical spinal fusion x2 (1969's) unsure of levels. Full ROM S/P cholecystectomy S/P thyroid biopsy negative Family History Mother Coronary heart disease Cancer Atrial fibrillation Father Coronary heart disease Myocardial infarction Cancer Aunt Cancer Brother Prostate cancer Son Bladder cancer Other No family history of adverse response to anesthesia Stroke Denies family history of Ovarian cancer Kidney disease Breast cancer Colorectal cancer Social History Smoking Status: Never smoker Second Hand Exposure: No; Hx Alcohol Use: No Hx Substance Use: No Preferred Language: Polish Communication Ability: Effective Visual Impairment: Partially Limited Hearing Ability: Normal Air Sealing Technician Required: No Beliefs That Will Affect Care: None marital status: / Current Living Situation: Alone current occupational status: retired Feels Safe at Home: Yes Childhood Exposure to Second-Hand Smoke: No caffeine: Yes (daria mariana, pepsi) Dental Care, Regularly: No Physical Activity Frequency: 1-2 Times per Week Physical Activity Frequency Comment: Physical therapy at home Seatbelt Use: sometimes Sunscreen Use: No Do you think of yourself as: straight/heterosexual Allergies Allergies Allergy/AdvReac Type Severity Reaction Status Date / Time dexamethasone Allergy Severe Shortness Verified 02/18/20 14:38 of Breath, throat constriction Sulfa (Sulfonamide Allergy Severe HIVES Verified 02/18/20 14:38 Antibiotics) adhesive tape Allergy Intermediate redness, Verified 02/18/20 14:38 irritation, peels skin off amoxicillin Allergy Unknown hives Verified 02/18/20 14:38 azithromycin Allergy Unknown Hives Verified 02/18/20 14:38 [From Zithromax Z-Siddhartha] clavulanic acid Allergy Unknown hives Verified 02/18/20 14:38 meperidine Allergy Unknown HIVES Verified 02/18/20 14:38 Penicillins Allergy Unknown hives Verified 02/18/20 14:38 ciprofloxacin [From Cipro] AdvReac Severe Vomiting Verified 02/18/20 14:38 codeine AdvReac Unknown NAUSEA AND Verified 02/18/20 14:38 VOMITING ketorolac AdvReac Unknown 'increased Verified 02/18/20 14:38 bleeding' Home Meds Home Medications Medication Instructions Recorded Confirmed acetaminophen 500 mg tablet 1,000 mg PO HS tab 06/03/19 02/18/20 amlodipine [Norvasc] 2.5 mg PO QAM 07/08/19 02/18/20 calcium carbonate-vitamin D3 1 tab PO QAM 07/31/19 02/18/20 [Calcium with Vitamin D] cholecalciferol (vitamin D3) 1,000 units PO QAM 07/31/19 02/18/20 cinnamon bark 1,000 mg PO QAM 07/31/19 02/18/20 cyanocobalamin (vitamin B-12) 1,000 mcg PO HS 07/31/19 02/18/20 omega-3 acid ethyl esters 1 cap PO QAM 07/31/19 02/18/20 Myrbetriq 50 mg PO QDL 12/04/19 02/18/20 amiodarone 200 mg PO QPM 02/12/20 02/18/20 pantoprazole 40 mg PO QAM 02/12/20 02/18/20 tiotropium bromide 2 puffs INH QAM 02/12/20 02/18/20 Previous Rx's Medication Instructions Recorded metoprolol tartrate 25 mg tablet 25 mg PO BID #180 tab 10/10/19 furosemide 20 mg tablet 40 mg PO QAM PRN #180 tab 10/15/19 loperamide 2 mg capsule 2 mg PO Q4H PRN #30 cap 01/15/20 apixaban 5 mg tablet 5 mg PO BID #180 tab 01/28/20 ondansetron HCl [Zofran] 4 mg PO QID PRN #30 tab 02/15/20 Results & Data (ED) Vital Signs Vital Signs - 24 hr 02/18/20 12:21 02/18/20 12:34 02/18/20 13:00 Temperature 37 C Temperature Source Oral Pulse Rate 64 71 63 Pulse Rate from SpO2 Sensor 62 Respiratory Rate 18 20 20 Blood Pressure 147/66 H Blood Pressure Mean 93 Pulse Oximetry 98 93 Oxygen Delivery Method Room Air Oxygen Flow Rate Sepsis Recent Fever Within 48 Hours No Sepsis New/Unexplained Change in Mental Status No Sepsis Action Taken by Nursing No Action Required Oxygen Flow Rate - Titration Pulse Oximetry Post Tiitration 02/18/20 13:04 02/18/20 13:05 02/18/20 13:07 Temperature Temperature Source Pulse Rate 65 62 60 Pulse Rate from SpO2 Sensor 65 62 Respiratory Rate 19 18 24 Blood Pressure 140/66 Blood Pressure Mean 83 Pulse Oximetry 97 98 98 Oxygen Delivery Method Nasal Cannula Nasal Cannula Nasal Cannula Oxygen Flow Rate 2 2 2 Sepsis Recent Fever Within 48 Hours Sepsis New/Unexplained Change in Mental Status Sepsis Action Taken by Nursing Oxygen Flow Rate - Titration 2 Pulse Oximetry Post Tiitration 98 02/18/20 13:30 02/18/20 13:31 02/18/20 14:00 Temperature Temperature Source Pulse Rate 62 62 62 Pulse Rate from SpO2 Sensor 62 62 63 Respiratory Rate 20 20 21 Blood Pressure 152/64 H 152/64 H Blood Pressure Mean 80 93 Pulse Oximetry 96 96 99 Oxygen Delivery Method Nasal Cannula Nasal Cannula Nasal Cannula Oxygen Flow Rate 2 2 Sepsis Recent Fever Within 48 Hours Sepsis New/Unexplained Change in Mental Status Sepsis Action Taken by Nursing Oxygen Flow Rate - Titration Pulse Oximetry Post Tiitration 02/18/20 14:30 02/18/20 14:31 02/18/20 15:00 Temperature Temperature Source Pulse Rate 59 L 60 61 Pulse Rate from SpO2 Sensor 59 L 60 61 Respiratory Rate 15 18 19 Blood Pressure 139/61 145/64 H Blood Pressure Mean 82 90 Pulse Oximetry 99 98 Oxygen Delivery Method Nasal Cannula Nasal Cannula Oxygen Flow Rate 2 2 Sepsis Recent Fever Within 48 Hours Sepsis New/Unexplained Change in Mental Status Sepsis Action Taken by Nursing Oxygen Flow Rate - Titration Pulse Oximetry Post Tiitration 02/18/20 15:01 02/18/20 15:30 02/18/20 15:31 Temperature Temperature Source Pulse Rate 61 60 59 L Pulse Rate from SpO2 Sensor 61 60 59 L Respiratory Rate 24 16 15 Blood Pressure 148/67 H Blood Pressure Mean 95 Pulse Oximetry 92 98 98 Oxygen Delivery Method Nasal Cannula Nasal Cannula Nasal Cannula Oxygen Flow Rate 2 2 2 Sepsis Recent Fever Within 48 Hours Sepsis New/Unexplained Change in Mental Status Sepsis Action Taken by Nursing Oxygen Flow Rate - Titration Pulse Oximetry Post Tiitration 02/18/20 16:00 02/18/20 16:01 02/18/20 16:30 Temperature Temperature Source Pulse Rate 59 L 59 L 68 Pulse Rate from SpO2 Sensor 59 L 59 L 68 Respiratory Rate 19 18 17 Blood Pressure 147/66 H 166/78 H Blood Pressure Mean 98 118 Pulse Oximetry 97 98 98 Oxygen Delivery Method Nasal Cannula Nasal Cannula Oxygen Flow Rate 2 2 Sepsis Recent Fever Within 48 Hours Sepsis New/Unexplained Change in Mental Status Sepsis Action Taken by Nursing Oxygen Flow Rate - Titration Pulse Oximetry Post Tiitration 02/18/20 16:31 02/18/20 17:00 02/18/20 17:01 Temperature Temperature Source Pulse Rate 74 63 61 Pulse Rate from SpO2 Sensor 68 63 61 Respiratory Rate 17 20 12 Blood Pressure 156/67 H Blood Pressure Mean 79 Pulse Oximetry 98 97 98 Oxygen Delivery Method Oxygen Flow Rate Sepsis Recent Fever Within 48 Hours Sepsis New/Unexplained Change in Mental Status Sepsis Action Taken by Nursing Oxygen Flow Rate - Titration Pulse Oximetry Post Tiitration 02/18/20 17:30 02/18/20 17:31 02/18/20 18:00 Temperature Temperature Source Pulse Rate 58 L 59 L Pulse Rate from SpO2 Sensor 59 L 59 L 66 Respiratory Rate 16 15 Blood Pressure 118/67 133/113 H Blood Pressure Mean 97 115 Pulse Oximetry 98 98 99 Oxygen Delivery Method Nasal Cannula Nasal Cannula Nasal Cannula Oxygen Flow Rate 2 2 Sepsis Recent Fever Within 48 Hours Sepsis New/Unexplained Change in Mental Status Sepsis Action Taken by Nursing Oxygen Flow Rate - Titration Pulse Oximetry Post Tiitration 02/18/20 18:01 Temperature Temperature Source Pulse Rate Pulse Rate from SpO2 Sensor 66 Respiratory Rate Blood Pressure Blood Pressure Mean Pulse Oximetry 97 Oxygen Delivery Method Nasal Cannula Oxygen Flow Rate 2 Sepsis Recent Fever Within 48 Hours Sepsis New/Unexplained Change in Mental Status Sepsis Action Taken by Nursing Oxygen Flow Rate - Titration Pulse Oximetry Post Tiitration Laboratory Data Result diagrams: 02/18/20 13:04 02/18/20 13:04 Lab Results 02/18/20 02/18/20 02/18/20 Range/Units 13:04 13:04 13:04 WBC 5.85 (4.8-10.8) K/uL RBC 3.23 L (4.2-5.4) M/uL Hgb 10.7 L (12.0-16.0) g/dL Hct 31.9 L (37-47) % MCV 98.8 (80-100) fL MCH 33.1 (25-34) pg MCHC 33.5 (32-36) g/dL RDW Std Deviation 52.9 H (36.4-46.3) fL RDW Coeff of Zackary 14.7 H (11.5-14.5) % Plt Count 113 L (130-400) K/uL MPV 9.7 (7.4-10.4) fL Immature Gran % (Auto) 0.2 % Neut % (Auto) 62.4 % Lymph % (Auto) 25.0 % [place] % (Auto) 11.3 % Eos % (Auto) 0.9 % Baso % (Auto) 0.2 % Neut # (Auto) 3.66 (1.4-6.5) K/uL Lymph # (Auto) 1.46 (1.2-3.4) K/uL [place] # (Auto) 0.66 H (0.11-0.59) K/uL Eos # (Auto) 0.05 (0-0.5) K/uL Baso # (Auto) 0.01 (0-0.2) K/uL Immature Gran # (Auto) 0.01 (0.00-0.02) K/uL PT 12.0 (9.0-12.0) Seconds INR 1.1 (0.9-1.1) APTT 35.9 H (21.0-31.0) Seconds PTT Ratio 1.3 Sodium 138 (136-145) mmol/L Potassium 3.7 (3.5-5.1) mmol/L Chloride 109 H (98-107) mmol/L Carbon Dioxide 23 (21-32) mmol/L Anion Gap 6.0 (3-11) BUN 12 (7-18) mg/dl Creatinine 1.07 (0.6-1.2) mg/dl Est Cr Clr Drug Dosing 46.1 ml/min Est GFR ( Amer) 56.8 Est GFR (Non-Af Amer) 49.0 BUN/Creatinine Ratio 11.0 (10-20) Glucose 102 H (70-99) mg/dl Calcium 8.7 (8.5-10.1) mg/dl Total Bilirubin 1.5 H (0.2-1) mg/dl AST 35 (15-37) U/L ALT 25 (12-78) U/L Alkaline Phosphatase 82 (45-117) U/L Troponin I < 0.015 (0-0.045) ng/ml Total Protein 6.6 (6.4-8.2) gm/dl Albumin 3.5 (3.4-5.0) gm/dl Globulin 3.1 (2.5-4.0) gm/dl Albumin/Globulin Ratio 1.1 (0.9-2) Lipase 147 (73-393) U/L Administered Medications Discontinued Medications Furosemide (Furosemide 40 Mg/4 Ml Vial) 40 mg IV NOW STA Stop: 02/18/20 14:44 Last Admin: 02/18/20 16:21 Dose: 40 mg Documented by: [id number] Morphine Sulfate (Morphine Sulfate 2 Mg/Ml Carp) 2 mg IV NOW STA Stop: 02/18/20 12:38 Last Admin: 02/18/20 13:11 Dose: 2 mg Documented by: [id number] Ondansetron HCl (Ondansetron Inj 2 Mg/Ml 2 Ml Vial) 4 mg IV NOW STA Stop: 02/18/20 12:38 Last Admin: 02/18/20 13:11 Dose: 4 mg Documented by: [id number] Discharge Plan Visit Data Chief Complaint: Back Injury/Pain Stated Complaint: BACK PAIN ED Provider: Milton Bejarano Discharge Problem: Breath shortness, CHF (congestive heart failure), Back pain, High serum chloride Forms Stand Alone Forms: My [facility] Prescriptions Prescriptions: No Action metoprolol tartrate 25 mg tablet 25 mg PO BID Qty: 180 RF: 3 Eliquis 5 mg tablet 5 mg PO BID Qty: 180 RF: 3 loperamide 2 mg capsule 2 mg PO Q4H PRN (Reason: diarrhea) Qty: 30 RF: 0 furosemide [Lasix] 20 mg tablet 40 mg PO QAM PRN (Reason: Edema, shortness of breath) Qty: 180 RF: 3 acetaminophen [Tylenol Extra Strength] 500 mg tablet 1,000 mg PO HS RF: 0 amlodipine [Norvasc] 2.5 mg tablet 2.5 mg PO QAM RF: 0 cinnamon bark 500 mg capsule 1,000 mg PO QAM RF: 0 omega-3 acid ethyl esters 1 gram capsule 1 cap PO QAM RF: 0 cholecalciferol (vitamin D3) 1,000 unit tablet 1,000 units PO QAM RF: 0 calcium carbonate-vitamin D3 [Calcium with Vitamin D] 600 mg(1,500mg) -400 unit tablet 1 tab PO QAM RF: 0 cyanocobalamin (vitamin B-12) 1,000 mcg capsule 1,000 mcg PO HS RF: 0 Myrbetriq 50 mg tablet extended release 24 hr 50 mg PO QDL RF: 0 pantoprazole 40 mg Tablet,Delayed Release (Dr/Ec) 40 mg PO QAM RF: 0 amiodarone 200 mg tablet 200 mg PO QPM RF: 0 tiotropium bromide 2.5 mcg/actuation mist 2 puffs INH QAM RF: 0 ondansetron HCl [Zofran] 4 mg tablet 4 mg PO QID PRN (Reason: Nausea) Qty: 30 RF: 5 Discharge Problem: CHF (congestive heart failure) Qualifiers: Heart failure type: unspecified Heart failure chronicity: unspecified Qualified Code(s): I50.9 - Heart failure, unspecified Back pain Qualifiers: Back pain location: back pain in unspecified location Chronicity: acute Back pain laterality: unspecified Qualified Code(s): M54.9 - Dorsalgia, unspecified
[2020-02-18 13:21] LABS: Basophils # (auto) 0.01 K/uL (0-0.2); Basophils % (auto) 0.2 %; Eosinophils # (auto) 0.05 K/uL (0-0.5); Eosinophils % (auto) 0.9 %; Hematocrit (blood only) 31.9 % (37-47); Hemoglobin 10.7 g/dL (12.0-16.0); Immature Granulocytes # (auto) 0.01 K/uL (0.00-0.02); Immature Granulocytes % (auto) 0.2 %; Lymphocytes # (auto) 1.46 K/uL (1.2-3.4); Mean Corpuscular Hemoglobin 33.1 pg (25-34); Mean Corpuscular Hgb Conc 33.5 g/dL (32-36); Mean Corpuscular Volume 98.8 fL (80-100); Mean Platelet Volume 9.7 fL (7.4-10.4); Monocytes # (auto) 0.66 K/uL (0.11-0.59); Monocytes % (auto) 11.3 %; Neutrophils # (auto) 3.66 K/uL (1.4-6.5); Neutrophils % (auto) 62.4 %; Platelet Count 113 K/uL (130-400); RDW Coefficient of Variation 14.7 % (11.5-14.5); RDW Standard Deviation 52.9 fL (36.4-46.3); Red Blood Count 3.23 M/uL (4.2-5.4); White Blood Count 5.85 K/uL (4.8-10.8)
[2020-02-18 13:33] LABS: INR 1.1 (0.9-1.1); Partial Thromboplastin Ratio 1.3; Partial Thromboplastin Time 35.9 Seconds (21.0-31.0)
[2020-02-18 13:39] LABS: Alanine Aminotransferase 25 U/L (12-78); Albumin Level 3.5 gm/dl (3.4-5.0); Aspartate Aminotransferase 35 U/L (15-37); Blood Urea Nitrogen 12 mg/dl (7-18); Calcium 8.7 mg/dl (8.5-10.1); Carbon Dioxide 23 mmol/L (21-32); Chloride 109 mmol/L (98-107); Creatinine Clr Calc Pharmacy 46.1 ml/min; Est GFR (African American) 56.8; Glucose 102 mg/dl (70-99); Lipase 147 U/L (73-393); Potassium 3.7 mmol/L (3.5-5.1); Sodium 138 mmol/L (136-145)
[2020-02-18 13:44] LABS: Albumin Globulin Ratio 1.1 (0.9-2); Alkaline Phosphatase 82 U/L (45-117); Bilirubin,Total 1.5 mg/dl (0.2-1); Globulin 3.1 gm/dl (2.5-4.0); Total Protein 6.6 gm/dl (6.4-8.2); Troponin I < 0.015 ng/ml (0-0.045)
--- NOTE | 2020-02-18 14:07 | XRay Report ---
XR ribs LT min 3V w CXR1V CLINICAL HISTORY: Left posterior rib pain. COMPARISON STUDY: Chest 12/04/2019. FINDINGS: No pneumothorax. No pleural effusions. The cardiac silhouette remains mildly enlarged. Left subclavian Port-A-Cath remains at the distal SVC. Posterior fusion hardware seen within the lower th oracic and lumbar spine. There is mild diffuse interstitial and vascular thickening consistent with m ild pulmonary edema. This is progressed in the interval. Suture material scarlike densities within th e left midlung zone persists. No new focal lung consolidations. Surgical clips within the right axill a. No acute rib fractures. Mild deformity within the left lateral fifth rib consistent with an old, h ealed fracture. IMPRESSION: 1. No acute rib fractures. No pneumothorax. 2. Mild interstitial pulmonary edema which has progressed. ACT 112: Negative or not required by law. Electronically signed by: Braxton Capps M.D. 02/18/2020 2:05 PM
[2020-02-18] MEDS ORDERED: FUROSEMIDE 40 MG/4 ML VIAL IV STA (14:43)
--- NOTE | 2020-02-18 17:00 | History & Physical Report ---
Date of Service February 18, 2020 Assessment & Plan (1) Dyspnea: Admit obs med surg tele Likely secondary to CHF exacerbation - Rib xray with congestion - will order a 2 view CXR Last echo 06/18 - EF 55% Given 40 mEq of lasix in the ED - will hold off on further to assess response, hold home lasix for now Initial troponin normal - will trend Patient reports she did have a recent sleep pulse ox study and was to start wearing O2 at night CBC, CMP am (2) Thrombocytopenia: appears to be at baseline (3) Atrial fibrillation: Cardioverted on Saturday, currently in a NSR Continue amiodarone, Eliquis, metoprolol Will monitor on manager monitoring for relapse into A.fib Patient was cardioverted by Dr. Swift but usually sees Dr. Sullivan (4) Hypertension: Continue metoprolol, amlodipine (5) Lymphoma: In remission (6) Dyslipidemia: (7) Acid reflux disease: Continue ppi (8) Stage 3 chronic kidney disease: Avoid nephrotoxins where possible CMP am (9) Back pain: Under where her cardioversion pads were placed Patient has allergy to adhesive but reports she thinks she can tolerate a lidoderm patch Prn morphine 2mg (10) Elevated bilirubin: Asymptomatic Repeat level am (11) Chronic obstructive pulmonary disease: Conitinue home spiriva, O2 as needed Does not appear to be in exacerbaton (12) DVT prophylaxis: Eliquis History of Present Illness Primary Care Provider: Li Miner MD Ms. An presents today due to dyspnea which started after her cardioversion on Saturday. She is also having back pain where the cardioversion shock was administered that wraps around to her chest at times. She had chest pressure yesterday but no further today. She has a chronic dry cough. At times she is dizzy and occasionally feels palpitations. She cannot tell when she is in A.fib. She has not noticed any increase in edema. She is nauseas but this has been a chronic issue since receiving chemo in 2017. She has had no changes in bowels, no dysuria or hesitancy, no skin changes. She has had no sick contacts, no fevers aches or chills, doesn't leave the house for much besides appointments. No known COVID exposures. She was tested for COVID be fore her procedure on Saturday but I don't see that it was resulted yet. Her son is at bedside. Allergies Allergy/AdvReac Type Severity Reaction Status Date / Time dexamethasone Allergy Severe Shortness Verified 02/18/20 14:38 of Breath, throat constriction Sulfa (Sulfonamide Allergy Severe HIVES Verified 02/18/20 14:38 Antibiotics) adhesive tape Allergy Intermediate redness, Verified 02/18/20 14:38 irritation, peels skin off amoxicillin Allergy Unknown hives Verified 02/18/20 14:38 azithromycin Allergy Unknown Hives Verified 02/18/20 14:38 [From Zithromax Z-Siddhartha] clavulanic acid Allergy Unknown hives Verified 02/18/20 14:38 meperidine Allergy Unknown HIVES Verified 02/18/20 14:38 Penicillins Allergy Unknown hives Verified 02/18/20 14:38 ciprofloxacin [From Cipro] AdvReac Severe Vomiting Verified 02/18/20 14:38 codeine AdvReac Unknown NAUSEA AND Verified 02/18/20 14:38 VOMITING ketorolac AdvReac Unknown 'increased Verified 02/18/20 14:38 bleeding' Home Medications Home Medications Medication Instructions Recorded Confirmed Type acetaminophen 500 mg tablet 1,000 mg PO HS tab 06/03/19 02/18/20 History amlodipine [Norvasc] 2.5 mg PO QAM 07/08/19 02/18/20 History calcium carbonate-vitamin D3 1 tab PO QAM 07/31/19 02/18/20 History [Calcium with Vitamin D] cholecalciferol (vitamin D3) 1,000 units PO QAM 07/31/19 02/18/20 History cinnamon bark 1,000 mg PO QAM 07/31/19 02/18/20 History cyanocobalamin (vitamin B-12) 1,000 mcg PO HS 07/31/19 02/18/20 History omega-3 acid ethyl esters 1 cap PO QAM 07/31/19 02/18/20 History metoprolol tartrate 25 mg tablet 25 mg PO BID #180 tab 10/10/19 02/18/20 Rx furosemide 20 mg tablet 40 mg PO QAM PRN #180 tab 10/15/19 02/18/20 Rx Myrbetriq 50 mg PO QDL 12/04/19 02/18/20 History loperamide 2 mg capsule 2 mg PO Q4H PRN #30 cap 01/15/20 02/18/20 Rx apixaban 5 mg tablet 5 mg PO BID #180 tab 01/28/20 02/18/20 Rx amiodarone 200 mg PO QPM 02/12/20 02/18/20 History pantoprazole 40 mg PO QAM 02/12/20 02/18/20 History tiotropium bromide 2 puffs INH QAM 02/12/20 02/18/20 History ondansetron HCl [Zofran] 4 mg PO QID PRN #30 tab 02/15/20 02/18/20 Rx Past Med/Surg History Medical History Acid reflux disease Anticoagulant long-term use Anxiety no medication Atrial fibrillation NEEDS CARDIOVERSION Atrial tachycardia Chronic pain of left upper extremity SHOULDER Degenerative disc disease Fungal infection of skin under left breast -- using cream and following with PCP GETTING BETTER AND HAS SPOT IN GROIN AREA Generalized weakness History of breast cancer right breast cancer -- CHEMO History of stroke 2014. Small chronic lacunar infarct noted on 03/[address] Hypertension Lumbar stenosis with neurogenic claudication Nephrolithiasis HX OF Non-Hodgkin lymphoma 2017 - CHEMO AND RADIATION Osteoarthritis Peripheral neuropathy Port-A-Cath in place HAS IT FLUSHED EVERY 6 WEEKS Rosacea Scoliosis Spinal stenosis Stage 3 chronic kidney disease monitoring Thyroid nodule Vitamin D deficiency Surgical History H/O colonoscopy H/O dilation and curettage multiple H/O: hysterectomy EVELIA History of appendectomy with hysterectomy History of back surgery lumbar fusion History of bladder surgery bladder tack History of bronchoscopy History of cardioversion 07/2019, 11/2019 History of esophagogastroduodenoscopy (EGD) History of lobectomy of lung Left upper lobe r/t nodule (granuloma) History of mastectomy right with lymph node removal History of tonsillectomy Nausea and vomiting after administration of anesthetic agent S/P cervical spinal fusion x2 (1970's) unsure of levels. Full ROM S/P cholecystectomy S/P thyroid biopsy negative Family History Mother Coronary heart disease Cancer Atrial fibrillation Father Coronary heart disease Myocardial infarction Cancer Aunt Cancer Brother Prostate cancer Son Bladder cancer Other No family history of adverse response to anesthesia Stroke Denies family history of Ovarian cancer Kidney disease Breast cancer Colorectal cancer Social History Smoking Status: Never smoker Second Hand Exposure: No; Hx Alcohol Use: No Hx Substance Use: No Preferred Language: [place] Communication Ability: Effective Visual Impairment: Partially Limited Hearing Ability: Normal Desulphurizer Operator Required: No Beliefs That Will Affect Care: None marital status: / Current Living Situation: Alone current occupational status: retired Feels Safe at Home: Yes Childhood Exposure to Second-Hand Smoke: No caffeine: Yes (daria mariana, pepsi) Dental Care, Regularly: No Physical Activity Frequency: 1-2 Times per Week Physical Activity Frequency Comment: Physical therapy at home Seatbelt Use: sometimes Sunscreen Use: No Do you think of yourself as: straight/heterosexual Review of Systems Review of Systems: All systems reviewed & are unremarkable except as noted in HPI & below Physical Exam Physical Exam: General: no distress Eyes: normal inspection, PERLL Respiratory: chest non tender, clear to auscultation, normal breath sounds, no respiratory distress, no accessory muscle use Cardiac: regular rate and rhythm, no rub or gallop, no murmur, no edema, no jvd GI/: active bowel sounds, no abd pain or tenderness, soft, non distended Extremities: normal range of motion, normal strength, non tender Neuro/Psych: alert and oriented x 3, normal mood and affect Skin: normal color, dry Results & Data Results & Data ([facility]) Vital Signs (Past 12 Hours) Vital Signs Temp Pulse Resp BP Pulse Ox 02/18/20 16:01 59 L 18 98 02/18/20 16:00 59 L 19 147/66 H 97 02/18/20 15:31 59 L 15 98 02/18/20 15:30 60 16 148/67 H 98 02/18/20 15:01 61 24 92 02/18/20 15:00 61 19 145/64 H 02/18/20 14:31 60 18 98 02/18/20 14:30 59 L 15 139/61 99 02/18/20 14:00 62 21 152/64 H 99 02/18/20 13:31 62 20 96 02/18/20 13:30 62 20 152/64 H 96 02/18/20 13:07 60 24 98 02/18/20 13:05 62 18 98 02/18/20 13:04 65 19 140/66 97 02/18/20 13:00 63 20 93 02/18/20 12:34 71 20 02/18/20 12:21 37 C 64 18 147/66 H 98 Supervising Physician Co-Signing Physician Notes Patient seen and examined with Keiry SCHAFFER. I agree with her exam findings, review of systems, assessment and plan. I personally reviewed the lab work and imaging as well. patient with severe pain in left posterior rib near where the pad was placed for cardioversion rib is tender as are the muscles she required three total cardioversions, she is in NRS on the monitor no fracture on rib series x-ray no rash at the site to suggest shingles - Left sided chest pain after cardioversion likely muscular, will ask cardiology tomorrow if they have seen this before use Lidoderm patch, narcotics PRN will likely go home tomorrow PG Care Time/CCT Total # of Minutes Spent Total Time Spent with Patient: Total time spent is greater than 50% in coordination of care (as documented) at patient's floor/unit and/or counseling patient: Coding Level of Care Code 29214 Initial Inpt Care Lvl 3 Diagnoses Dyspnea R06.00 Thrombocytopenia D69.6 Atrial fibrillation I48.91 Hypertension I10 Hypertension type: unspecified Lymphoma C85.90 Dyslipidemia E78.5 Acid reflux disease K21.9 Esophagitis presence: esophagitis presence not specified Stage 3 chronic kidney disease N18.3 Back pain M54.9 Elevated bilirubin R17 Chronic obstructive pulmonary disease J44.9 DVT prophylaxis Z29.9 (1) Acid reflux disease Esophagitis presence: esophagitis presence not specified Qualified Code(s): K21.9 - Gastro-esophageal reflux disease without esophagitis (2) Hypertension Hypertension type: unspecified Qualified Code(s): I10 - Essential (primary) hypertension
[2020-02-18] MEDS ORDERED: LOPERAMIDE HCL 2 MG CAP PO PRN (19:29)
[2020-02-18] MEDS ORDERED: ACETAMINOPHEN 325 MG TAB PO PRN (19:29)
[2020-02-18] MEDS ORDERED: ONDANSETRON 4 MG OD TAB PO PRN (19:47)
--- NOTE | 2020-02-18 20:09 | XRay Report ---
XR chest 2V PA/lateral HISTORY: 79 years-old Female dyspnea acute shortness of breath COMPARISON: Chest CT 12/07/2019, chest radiograph 12/04/2019 TECHNIQUE: PA and lateral views of the chest FINDINGS: Cardiac silhouette is mildly enlarged, unchanged. Linear subsegmental atelectasis/scarring of the lef t midlung redemonstrated. Calcified plaque the thoracic aortic arch. Left subclavian [id number] ca theter. No pneumothorax, pleural effusion, airspace consolidation or overt pulmonary edema. Degenerat marleny changes of the shoulders and spine. Thoracolumbar spinal fusion hardware. Surgical clips project over the abdominal right upper quadrant. IMPRESSION: No acute process. ACT 112: Negative or not required by law. The above report was generated using voice recognition software. It may contain grammatical, syntax o r spelling errors. Electronically signed by: Galindo Barroso M.D. 02/18/2020 8:07 PM
[2020-02-18] MEDS: LIDOCAINE 5% 1 PATCH TD SCH (20:56)
[2020-02-18] MEDS: ACETAMINOPHEN 500 MG TAB PO SCH (20:57)
[2020-02-18] MEDS: APIXABAN 5 MG TABLET PO SCH (20:58)
[2020-02-18] MEDS: CYANOCOBALAMIN 500 MCG TABLET (VITAMIN B-12) PO SCH (20:58)
[2020-02-18] MEDS: METOPROLOL TARTRATE 25 MG TAB PO SCH (20:58)
[2020-02-18] MEDS: MoRPHine SULFATE 2 MG/ML CARP IV PRN (21:04)
--- NOTE | 2020-02-19 05:42 | Electrocardiogram Report ---
Test Reason : Blood Pressure : / mmHG Vent. Rate : 071 BPM Atrial Rate : 071 BPM P-R Int : 192 ms QRS Dur : 078 ms QT Int : 382 ms P-R-T Axes : 040 054 060 degrees QTc Int : 415 ms Normal sinus rhythm Septal infarct , age undetermined Nonspecific T wave abnormality Abnormal ECG When compared with ECG of 15-FEB-2020 07:51, Premature atrial complexes are no longer Present MD interval has decreased Septal infarct is now Present Confirmed by Trevin Mccarthy ([id number]) on 02/19/2020 5:42:28 AM Referred By: Li Miner Confirmed By:Trevin Mccarthy
--- NOTE | 2020-02-19 05:45 | Electrocardiogram Report ---
Test Reason : Blood Pressure : / mmHG Vent. Rate : 061 BPM Atrial Rate : 061 BPM P-R Int : 210 ms QRS Dur : 078 ms QT Int : 452 ms P-R-T Axes : 065 045 099 degrees QTc Int : 456 ms Sinus rhythm with 1st degree A-V block Low voltage QRS Septal infarct (cited on or before 18-FEB-2020) Nonspecific T wave abnormality Abnormal ECG When compared with ECG of 18-FEB-2020 12:30, No significant change Confirmed by Trevin Mccarthy ([id number]) on 02/19/2020 5:44:45 AM Referred By: Li Miner Confirmed By:Trevin Mccarthy
[2020-02-19 06:15] LABS: Hematocrit (blood only) 30.5 % (37-47); Hemoglobin 10.3 g/dL (12.0-16.0); Mean Corpuscular Hemoglobin 33.1 pg (25-34); Mean Corpuscular Hgb Conc 33.8 g/dL (32-36); Mean Corpuscular Volume 98.1 fL (80-100); Mean Platelet Volume 9.8 fL (7.4-10.4); Platelet Count 105 K/uL (130-400); RDW Coefficient of Variation 14.9 % (11.5-14.5); RDW Standard Deviation 53.5 fL (36.4-46.3); Red Blood Count 3.11 M/uL (4.2-5.4); White Blood Count 4.76 K/uL (4.8-10.8)
[2020-02-19 06:44] LABS: Albumin Level 3.2 gm/dl (3.4-5.0); BUN Creatinine Ratio 12.6 (10-20); Calcium 8.9 mg/dl (8.5-10.1); Creatinine Clr Calc Pharmacy 40.8 ml/min; Est GFR (African American) 49.4; Est GFR (Non-African American) 42.7; Potassium 3.3 mmol/L (3.5-5.1)
[2020-02-19 06:47] LABS: Albumin Globulin Ratio 1.1 (0.9-2); Bilirubin,Total 1.3 mg/dl (0.2-1); Globulin 2.9 gm/dl (2.5-4.0); Total Protein 6.1 gm/dl (6.4-8.2)
[2020-02-19] MEDS: PANTOprazole 40 MG TAB PO SCH (07:37)
[2020-02-19] MEDS: CHOLECALCIFEROL 1,000 UNITS 25 MCG TAB PO SCH (07:38)
[2020-02-19] MEDS: AMLODIPINE BESYLATE 5 MG TAB PO SCH (07:38)
[2020-02-19] MEDS: CALCIUM 600MG + VIT D 400 IU TAB PO SCH (07:39)
[2020-02-19] MEDS: METOPROLOL TARTRATE 25 MG TAB PO SCH ×3 (07:40→20:40)
[2020-02-19] MEDS: MIRABEGRON ER 25 MG TAB PO SCH (07:40)
[2020-02-19] MEDS: OMEGA-3 (PURIFIED FISH OIL) 1 GM CAP PO SCH (07:40)
[2020-02-19] MEDS: UMECLIDINIUM BROMIDE 62.5MCG/BLISTER 7 PUFFS/INHALER INH SCH (07:41)
[2020-02-19] MEDS: APIXABAN 5 MG TABLET PO SCH ×2 (07:41→20:40)
[2020-02-19] MEDS: HEPARIN 100 UNIT/ML 5ML FLUSH FLUSH PRN ×2 (07:47→15:26)
[2020-02-19] MEDS: MoRPHine SULFATE 2 MG/ML CARP IV PRN (07:47)
[2020-02-19] MEDS ORDERED: POTASSIUM CHLORIDE 20 MEQ TABCR PO STA (08:12)
--- NOTE | 2020-02-19 10:31 | Hospitalist Progress Note ---
Date of Service February 19, 2020 Assessment & Plan (1) Dyspnea: * patient s/p cardioversion for afib 3 days ago. Presented with MANE/pain from cardioversion. Not on O2 at home during the day although was supposed to be set up with O2 at night but was never done/set-up through [facility] (follows locally with [facility]) * Currently 94% on 4L --> will wean O2 to maintain sat >92% * Last Echo May 2019 with EF 55% --> given dyspnea on exertion, will order limited ECHO f/u * Repeat CXR last evening without acute process * Cardiology consulted -- appreciate input * Daily weights, Strict I&O --> per patient, baseline weight ~196-197lb. Currently ~200lb. Will give additional 40mg PO lasix x 1. Likely patient will need lower dose daily lasix vs prn to maintain steady state * Trop negative x 2, last set 0.023. Will repeat. Denies cp at this time. * Overnight pulse ox study ordered as patient had previous study >30 days ago and will need to re-qualify * CBC, BMP in AM (2) Atrial fibrillation: * Cardioverted on Saturday (by Dr. Swift although usually sees Dr. Kiran) -- currently in a NSR * Continue amiodarone, Eliquis, metoprolol * On telemetry has been sinus 60s with overnight 50-60s with PACs * Continue to monitor (3) Back pain: * Under where her cardioversion pads were placed - patient has allergy to adhesive but reports she thinks she can tolerate a lidoderm patch * Prn morphine 2mg -- did have some relief this morning with dose * I moved lidocaine patch down further as it had been higher than where pain was at (4) Thrombocytopenia: * appears to be at baseline -- plts 105 on am labs (5) Hypertension: * Chronic. Stable, BP 137/82 * Continue metoprolol, amlodipine * Continue to monitor (6) Lymphoma: * In remission (7) Dyslipidemia: (8) Acid reflux disease: * Continue protonix while inpatient as omeprazole non-formulary (9) Stage 3 chronic kidney disease: * Avoid nephrotoxins where possible * Cr slightly above baseline at 1.2 --> continue to monitor (10) Elevated bilirubin: * Asymptomatic. Tbili 1.3 (was 1.5 and has been elevated in past). All other LFTs wnl (11) Chronic obstructive pulmonary disease: * Continue home spiriva, O2 as needed to maintain sat >90% * Overnight pulse ox study ordered for tonight (12) Hypokalemia: * K 3.3 on am labs -- ordered replacement. Will obtain mag level and replace if needed * Will likely need low dose replacement if set on daily lasix at discharge * Assess needs on AM labs (13) DVT prophylaxis: * Eliquis Admission and Anticipated Discharge Date Admission Date: February 18, 2020 Subjective Patient evaluated this morning. Pain better with morphine this morning and lidocaine patch, currently 3/10. Never had pain like this on previous 2 cardioversions. Shortness of breath with ambulation. Not on oxygen at home. Prior to cardioversion on saturday she had been getting back to her usual self and states she was ambulating fine without MANE. States her usual weight is around 196-197lb but she would like this to be lower. She states she takes lasix at home as needed for swelling but this typically occurs 2-3x/wk. She admits she does not take this if she is traveling. She denies swelling/edema at this time but does endorse some abdominal fullness. She states she believes this is due to her taking 2 loperamide the other day because she had been having issues with constipation and didn't want to have "an explosion" on the way over here. Previously supposed to be on nocturnal oxygen but had never had set up and unaware of what setting were to be and it was never sent/set-up with [facility]. Denies fever, chills, abdominal fullness, dysuria at this time. Review of Systems Review of Systems: All systems reviewed & are unremarkable except as noted in HPI & below Physical Exam Constitutional: WD/WN, vitals as above no acute distress Eyes: + anicteric sclerae and PERRL ENMT: Ears: no hearing impairment Neck: trachea midline, no thyromegaly Respiratory: normal respiratory effort, lungs clear to auscultation 94% on 4L NC Cardiovascular: RRR, no murmur, no edema Vessels: + JVD Gastrointestinal (Abdomen): Inspection/Auscultation: + abdomen distended and normal bowel sounds Percussion/Palpation: abdomen soft; abdomen nontender Musculoskeletal: no cyanosis or clubbing, extremities motor strength 5/5 Skin: no rashes, warm and dry Neurologic: PERRL, EOMI, accommodation nl, no face palsy, no dysarthria Psychiatric: A+Ox3, euthymic affect Lymphatic: no cervical or axillary lymphadenopathy Results & Data Results & Data ([facility]) Vital Signs (Past 12 Hours) Vital Signs Temp Pulse Pulse Resp BP Pulse Ox 02/19/20 07:21 36.4 C L 52 L 16 138/67 97 02/19/20 03:44 36.4 C L 48 L 20 122/71 99 02/19/20 00:18 59 L Laboratory Results 02/19/20 02/19/20 02/18/20 Range/Units 05:31 05:31 19:40 WBC 4.76 L (4.8-10.8) K/uL RBC 3.11 L (4.2-5.4) M/uL Hgb 10.3 L (12.0-16.0) g/dL Hct 30.5 L (37-47) % MCV 98.1 (80-100) fL MCH 33.1 (25-34) pg MCHC 33.8 (32-36) g/dL RDW Std Deviation 53.5 H (36.4-46.3) fL RDW Coeff of Zackary 14.9 H (11.5-14.5) % Plt Count 105 L (130-400) K/uL MPV 9.8 (7.4-10.4) fL Sodium 140 (136-145) mmol/L Potassium 3.3 L (3.5-5.1) mmol/L Chloride 105 (98-107) mmol/L Carbon Dioxide 27 (21-32) mmol/L Anion Gap 7.0 (3-11) BUN 15 (7-18) mg/dl Creatinine 1.20 (0.6-1.2) mg/dl Est Cr Clr Drug Dosing 40.8 ml/min Est GFR ( Amer) 49.4 Est GFR (Non-Af Amer) 42.7 BUN/Creatinine Ratio 12.6 (10-20) Glucose 97 (70-99) mg/dl Calcium 8.9 (8.5-10.1) mg/dl Total Bilirubin 1.3 H (0.2-1) mg/dl AST 29 (15-37) U/L ALT 23 (12-78) U/L Alkaline Phosphatase 84 (45-117) U/L Troponin I 0.023 (0-0.045) ng/ml Total Protein 6.1 L (6.4-8.2) gm/dl Albumin 3.2 L (3.4-5.0) gm/dl Globulin 2.9 (2.5-4.0) gm/dl Albumin/Globulin Ratio 1.1 (0.9-2) PG Care Time/CCT Total # of Minutes Spent Total Time Spent with Patient: Total time spent is greater than 50% in coordination of care (as documented) at patient's floor/unit and/or counseling patient: Coding Level of Care Code 04555 Subseq Obs Care Lvl 3 Diagnoses Dyspnea R06.00 Atrial fibrillation I48.91 Back pain M54.9 Thrombocytopenia D69.6 Hypertension I10 Hypertension type: unspecified Lymphoma C85.90 Dyslipidemia E78.5 Acid reflux disease K21.9 Esophagitis presence: esophagitis presence not specified Stage 3 chronic kidney disease N18.3 Elevated bilirubin R17 Chronic obstructive pulmonary disease J44.9 Hypokalemia E87.6 DVT prophylaxis Z29.9 (1) Hypertension Hypertension type: unspecified Qualified Code(s): I10 - Essential (primary) hypertension (2) Acid reflux disease Esophagitis presence: esophagitis presence not specified Qualified Code(s): K21.9 - Gastro-esophageal reflux disease without esophagitis
[2020-02-19] MEDS ORDERED: FUROSEMIDE 40 MG TAB PO ONE (14:22)
[2020-02-19] MEDS: AMIODARONE 200 MG TAB PO SCH (15:29)
--- NOTE | 2020-02-19 15:54 | Cardiology Progress Note ---
Date of Service February 19, 2020 Assessment & Plan (1) Chest pain syndrome: -she notes discomfort in her chest and back in the area of her cardioversion pads. -suspect this is musculoskeletal in origin. -agree with topical lidocaine. (2) Dyspnea on exertion: -she has improved with the use of intravenous diuretics. -she does carry history of chronic diastolic CHF. -would continue intravenous formulation until her BUN and creatinine increase. (3) Atrial fibrillation: -remains in sinus rhythm on amiodarone. Admission and Anticipated Discharge Date Admission Date: February 18, 2020 Subjective The patient is resting comfortably in bed and is noting improvement in her shortness of breath and her chest and back discomfort. Physical Exam Physical Exam: In general this is an obese white female in no acute distress. HEENT exam is negative. Neck is supple with full carotid upstrokes. There are no carotid bruits. Jugular venous pressure is flat at 90. There is no thyromegaly. Cardiovascular exam reveals a regular rhythm with a normal S1 and S2. Heart sounds are distant. No obvious murmurs. Chest reveals tenderness to palpation in the area of the anterior cardioversion pad. Back notes tenderness to palpation in the area of the cardioversion pad. Lungs are clear without rales, rhonchi, or wheezes. Abdomen is soft and nontender without bruits. Extremities reveal intact radial artery and posterior tibial pulses bilaterally. There is no peripheral edema. Results & Data ([facility]) Vital Signs (Past 12 Hours) Vital Signs Temp Pulse Resp BP Pulse Ox 02/19/20 12:07 36.6 C 66 18 137/82 94 02/19/20 10:50 54 L 18 100 02/19/20 07:21 36.4 C L 52 L 16 138/67 97 Diagnostic Findings EKG notes normal sinus rhythm with an old anteroseptal NV and nonspecific T-wave abnormality. high speed warper tender confirms atrial fibrillation. PG Care Time/CCT Total # of Minutes Spent Total Time Spent with Patient: Total time spent is greater than 50% in coordination of care (as documented) at patient's floor/unit and/or counseling patient: Coding Level of Care Code 54714 Subseq Hosp Care Lvl 3 Diagnoses Chest pain syndrome R07.9 Dyspnea on exertion R06.09 Atrial fibrillation I48.91
[2020-02-19 15:57] LABS: Magnesium 1.6 mg/dl (1.8-2.4); Troponin I 0.017 ng/ml (0-0.045)
--- NOTE | 2020-02-19 16:17 | XCELERA ---
[id number]
[2020-02-19] MEDS: MAGNESIUM SULFATE / D5W 1 GM/100 ML BAG IV SCH ×2 (16:41→18:48)
[2020-02-19] MEDS: CYANOCOBALAMIN 500 MCG TABLET (VITAMIN B-12) PO SCH (20:40)
[2020-02-19] MEDS: ACETAMINOPHEN 500 MG TAB PO SCH (20:40)
[2020-02-19] MEDS: LIDOCAINE 5% 1 PATCH TD SCH (20:41)
[2020-02-20] MEDS: HEPARIN 100 UNIT/ML 5ML FLUSH FLUSH PRN (06:19)
[2020-02-20 06:33] LABS: Hematocrit (blood only) 31.8 % (37-47); Hemoglobin 10.5 g/dL (12.0-16.0); Mean Corpuscular Hemoglobin 32.9 pg (25-34); Mean Corpuscular Volume 99.7 fL (80-100); Mean Platelet Volume 9.7 fL (7.4-10.4); Platelet Count 109 K/uL (130-400); RDW Coefficient of Variation 14.7 % (11.5-14.5); RDW Standard Deviation 53.1 fL (36.4-46.3); Red Blood Count 3.19 M/uL (4.2-5.4); White Blood Count 4.35 K/uL (4.8-10.8)
[2020-02-20 07:08] LABS: Albumin Level 3.3 gm/dl (3.4-5.0); BUN Creatinine Ratio 14.2 (10-20); Calcium 8.7 mg/dl (8.5-10.1); Creatinine Clr Calc Pharmacy 38.9 ml/min; Est GFR (African American) 46.6; Est GFR (Non-African American) 40.2; Potassium 3.6 mmol/L (3.5-5.1)
[2020-02-20 07:11] LABS: Albumin Globulin Ratio 1.1 (0.9-2); Total Protein 6.3 gm/dl (6.4-8.2)
[2020-02-20] MEDS: APIXABAN 5 MG TABLET PO SCH (08:51)
[2020-02-20] MEDS: CALCIUM 600MG + VIT D 400 IU TAB PO SCH (08:52)
[2020-02-20] MEDS: AMLODIPINE BESYLATE 5 MG TAB PO SCH (08:52)
[2020-02-20] MEDS: CHOLECALCIFEROL 1,000 UNITS 25 MCG TAB PO SCH (08:52)
[2020-02-20] MEDS: PANTOprazole 40 MG TAB PO SCH (08:53)
[2020-02-20] MEDS: UMECLIDINIUM BROMIDE 62.5MCG/BLISTER 7 PUFFS/INHALER INH SCH (08:53)
[2020-02-20] MEDS: OMEGA-3 (PURIFIED FISH OIL) 1 GM CAP PO SCH (08:53)
[2020-02-20] MEDS: METOPROLOL TARTRATE 25 MG TAB PO SCH (08:53)
--- NOTE | 2020-02-20 11:11 | Cardiology Progress Note ---
Date of Service February 20, 2020 Assessment & Plan (1) CHF (congestive heart failure): She presents with shortness of breath felt to be due to congestive heart failure, her chest x-ray really does not show significant CHF but her weight is up 1 or 2 kg although there is some fluctuation in measurements. She did respond to diuresis and likely had mild diastolic dysfunction. She is not very fluid overloaded and I would be cautious with further diuresis. (2) Chest pain syndrome: This is not likely cardiac, her biomarkers are negative and this seems musculoskeletal. (3) Atrial fibrillation: She has remained out of atrial fibrillation on amiodarone following her recent cardioversion. I would continue amiodarone. (4) On amiodarone therapy: I believe she is doing well on amiodarone, she does not seem to have side effects. (5) Anticoagulant long-term use: She should remain on anticoagulation, currently Eliquis which I would continue. (6) Sinus bradycardia: She does have sinus bradycardia, that is probably in part medication related in part due to sinus node dysfunction. She seems to doing well with it, I would continue her current regimen and hopefully we will not need to consider pacemaker implantation but I would not do that now. Admission and Anticipated Discharge Date Admission Date: February 18, 2020 Subjective She is feeling well today, she still has residual left scapular discomfort but it is improving and her breathing is improving. She feels able to go home. Physical Exam 2 Physical Exam: Constitutional: Alert, cooperative and in no distress. HEENT: Unremarkable Neck: No jugular venous distention, carotid pulses are normal and equal bilaterally without bruits. Pulmonary: Clear to auscultation bilaterally. Cardiac: Regular rhythm with no murmur, gallop or rub. Abdomen: Soft, nontender with normal bowel sounds. Extremities: No edema. Distal pulses intact. Neurologic: No focal findings. Gait is steady. Skin: No rash, ecchymoses or petechiae. Results & Data ([facility]) Vital Signs (Past 12 Hours) Vital Signs Temp Pulse Pulse Pulse Resp BP Pulse Ox 02/20/20 08:10 56 L 02/20/20 07:57 36.7 C 57 L 16 129/85 99 02/20/20 03:57 51 L 02/20/20 03:38 36.5 C 60 18 135/67 99 02/20/20 01:15 51 L 02/19/20 23:25 62 Pulse Ox 02/20/20 08:10 02/20/20 07:57 02/20/20 03:57 98 02/20/20 03:38 02/20/20 01:15 97 02/19/20 23:25 Laboratory Results Cardiac Enzymes 02/19/20 02/20/20 Range/Units 15:19 06:19 AST 26 (15-37) U/L Troponin I 0.017 (0-0.045) ng/ml CBC 02/20/20 Range/Units 06:19 WBC 4.35 L (4.8-10.8) K/uL RBC 3.19 L (4.2-5.4) M/uL Hgb 10.5 L (12.0-16.0) g/dL Hct 31.8 L (37-47) % Plt Count 109 L (130-400) K/uL Comprehensive Metabolic Panel 02/20/20 Range/Units 06:19 Sodium 138 (136-145) mmol/L Potassium 3.6 (3.5-5.1) mmol/L Chloride 105 (98-107) mmol/L Carbon Dioxide 29 (21-32) mmol/L BUN 18 (7-18) mg/dl Creatinine 1.26 H (0.6-1.2) mg/dl Glucose 110 H (70-99) mg/dl Calcium 8.7 (8.5-10.1) mg/dl AST 26 (15-37) U/L ALT 22 (12-78) U/L Alkaline Phosphatase 85 (45-117) U/L Total Protein 6.3 L (6.4-8.2) gm/dl Albumin 3.3 L (3.4-5.0) gm/dl Intake and Output 02/19/20 02/20/20 02/20/20 22:59 06:59 14:59 Intake Total 320 / 970 200 / 970 Output Total 500 / 500 Balance -180 / 470 200 / 470 Intake: IV 200 / 200 MAGNESIUM SULFATE / D5W 1 gm In 200 / 200 100 ml @ 50 mls/hr IV Q2H [facility] Rx#:[id number] Oral 120 / 770 200 / 770 Output: Urine 500 / 500 Other: Weight 91.1 kg Diagnostic Findings Telemetry: Sinus bradycardia, heart rate in the 40s to 60s. PG Care Time/CCT Total # of Minutes Spent Total Time Spent with Patient: Total time spent is greater than 50% in coordination of care (as documented) at patient's floor/unit and/or counseling patient: Coding Level of Care Code 44494 Subseq Hosp Care Lvl 3 Diagnoses CHF (congestive heart failure) I50.9 Heart failure chronicity: unspecified Heart failure type: unspecified Chest pain syndrome R07.9 Atrial fibrillation I48.91 On amiodarone therapy Z79.899 Anticoagulant long-term use Z79.01 Sinus bradycardia R00.1 (1) CHF (congestive heart failure) Heart failure chronicity: unspecified Heart failure type: unspecified Qualified Code(s): I50.9 - Heart failure, unspecified
[2020-02-20] MEDS: MIRABEGRON ER 25 MG TAB PO SCH (13:50)
[2020-02-20] MEDS: AMIODARONE 200 MG TAB PO SCH (15:21)
--- NOTE | 2020-02-20 15:43 | Discharge Summary ---
Date of Service February 20, 2020 Admission HPI Per Admitting Provider Ms. An presents today due to dyspnea which started after her cardioversion on Saturday. She is also having back pain where the cardioversion shock was administered that wraps around to her chest at times. She had chest pressure yesterday but no further today. She has a chronic dry cough. At times she is dizzy and occasionally feels palpitations. She cannot tell when she is in A.fib. She has not noticed any increase in edema. She is nauseas but this has been a chronic issue since receiving chemo in 2017. She has had no changes in bowels, no dysuria or hesitancy, no skin changes. She has had no sick contacts, no fevers aches or chills, doesn't leave the house for much besides appointments. No known COVID exposures. She was tested for COVID before her procedure on Saturday but I don't see that it was resulted yet. Her son is at bedside. Principal Diagnosis CHF exacerbation Discharge Exam Constitutional WD/WN, vitals as above Respiratory normal respiratory effort, lungs clear to auscultation Cardiovascular RRR, no murmur, no edema Gastrointestinal (Abdomen) Inspection/Auscultation: abdomen normal to inspection and normal bowel sounds; abdomen not distended Percussion/Palpation: abdomen soft; abdomen nontender Musculoskeletal no cyanosis or clubbing, extremities motor strength 5/5 Skin no rashes, warm and dry Neurologic moves all extremities and awake Psychiatric A+Ox3, euthymic affect Discharge Data Allergies Allergy/AdvReac Type Severity Reaction Status Date / Time dexamethasone Allergy Severe Shortness Verified 02/18/20 14:38 of Breath, throat constriction Sulfa (Sulfonamide Allergy Severe HIVES Verified 02/18/20 14:38 Antibiotics) adhesive tape Allergy Intermediate redness, Verified 02/18/20 14:38 irritation, peels skin off amoxicillin Allergy Unknown hives Verified 02/18/20 14:38 azithromycin Allergy Unknown Hives Verified 02/18/20 14:38 [From Zithromax Z-Siddhartha] clavulanic acid Allergy Unknown hives Verified 02/18/20 14:38 meperidine Allergy Unknown HIVES Verified 02/18/20 14:38 Penicillins Allergy Unknown hives Verified 02/18/20 14:38 ciprofloxacin [From Cipro] AdvReac Severe Vomiting Verified 02/18/20 14:38 codeine AdvReac Unknown NAUSEA AND Verified 02/18/20 14:38 VOMITING ketorolac AdvReac Unknown 'increased Verified 02/18/20 14:38 bleeding' Consultations 02/18/20 14:43 ED Decision to Admit Stat 02/18/20 19:29 Consult Case Management - Discharge Planning Routine 02/19/20 12:34 Consult Cardiology Routine Hospital Course (1) Dyspnea: * Secondary to acute on chronic diastolic CHF, chronic COPD and pain from cardioversion * patient s/p cardioversion for afib 3 days ago. Presented with MANE/pain from cardioversion. Not on O2 at home during the day although was supposed to be set up with O2 at night but was never done/set-up through [facility] (follows locally with [facility]) * Last Echo May 2019 with EF 55% --> limited echo here with EF 60%, no WMA * Repeat CXR without acute process * Cardiology consulted -- appreciate input * Responded well to diuresis - will hold off on further as creatinine 1.23 today. Will have patient resume her as needed Lasix for lower extremity swelling but will defer on starting any daily diuretics. Is & Os inaccurate - voiding in toilet * Trop negative x 3 * Overnight pulse ox study and 2 step show oxygen required. Will send home with 2L NC HS and ambulation * Overnight pulse ox study did show 2 brief desaturation events after oxygen was initiated - consider sleep study outpatient to assess need for CPAP (2) Atrial fibrillation: * Cardioverted on Saturday (by Dr. Swift although usually sees Dr. Kiran) -- currently in a NSR * Continue amiodarone, Eliquis, metoprolol * On telemetry has been sinus 60s with periods of bradycardia at times - per cardiology, no changes to her current regimen at this time * Continue to monitor (3) Back pain: * Under where her cardioversion pads were placed - patient has allergy to adhesive but reports she thinks she can tolerate a lidoderm patch * Prn morphine 2mg -- did have some relief with this yesterday and has not required any today * Continue lidoderm patches and acetaminophen for home (4) Thrombocytopenia: * appears to be at baseline -- plts 105 on am labs (5) Hypertension: * Chronic. Stable, BP 137/82 * Continue metoprolol, amlodipine * Continue to monitor (6) Lymphoma: * In remission (7) Dyslipidemia: (8) Acid reflux disease: * Continue ppi (9) Stage 3 chronic kidney disease: * Avoid nephrotoxins where possible * Cr slightly above baseline at 1.26 --> no further diuresis at this point (10) Elevated bilirubin: * Resolved - Asymptomatic Tbili peaked at 1.5 (11) Chronic obstructive pulmonary disease: * Continue home spiriva, O2 as needed to maintain sat >90% * Will go home with O2 (12) Hypokalemia: * resolved (13) DVT prophylaxis: * Eliquis Dispo: Home with home health. Patient reports she feels she is ambulating at her baseline, able to walk the halls with resp therapy for 2-step. She reports she has lots of help from her family and feels comfortable returning home. Will have home health eval and treat for PT/OT ongoing Total Time Total Time Spent Total Time Spent (In Minutes): greater than 30 minutes Discharge Plan Discharge Items Patient Disposition: Home - Home Health Services Reason For Visit: SOB Discharge Diagnosis: CHF exacerbation Activity: Resume your previous activity Activity Comment: gradually as tolerated Non-emergency contact: Primary Care Provider Call non-emergency contact if: you have any medication questions Follow-up/Referrals: Li Miner MD [Primary Care Provider] - (follow up in one week ) Diet: Heart Healthy Addtl Attending Provider Instructions: (1) Dyspnea: You were given Lasix to help remove excess fluid to help you breathe better. While you were here, you were found to need oxygen at night and with ambulation. You will be given a prescription for 2L of oxygen at bedtime and with activity. (2) Atrial fibrillation: Continue amiodarone, Eliquis, metoprolol You maintained a normal sinus rhythm while here in the hospital (3) Back pain: Due to cardioversion. You can continue with lidoderm patches and tylenol for your pain. Do no exceed 3g (3000 mg) of Tylenol in 24 hours Home health will evaluate and treat you for physical and occupational therapy CHF instructions: Call 911 and go to the Emergency Room if: * You have tightness or pain in your chest that does not go away with rest * You are very short of breath even with rest Call your doctor if any of the following symptoms or problems start or get worse: * Shortness of breath or difficulty breathing * Wake up at night short of breath * Chest pain * Cough * Swelling of your hands, fee, or legs * More fatigued or tired with your normal activity * Palpitations - sudden fast heart beats WEIGHT * Weigh yourself every morning after using the bathroom. * Use the same scale. * Wear the same amount of clothing. * Write your weight down on your chart. * Call your doctor if you gain more than 2-3 pounds in 1-2 days. MEDICATIONS * Use this discharge instruction sheet for instructions. * Take your medications at the time your doctor ordered. * Do not skip a dose of your medicines. * If you miss a dose of medicine, take as soon as possible, but DO NOT DOUBLE A DOSE. * Read your medicine information when you get home. * Know all of the side effects of your medicine. * Call your doctor's office if you have any side effects. * Be sure all of your doctors know what medicine and herbs you take (including cold, flu, and herbal medicine). * Pain Medicine: If you do not get relief from your pain, please call your doctor for help. Take the following with you to your follow-up doctor appointments: * Weight Chart * Medication List * List of questions Do not drink excessive alcohol, beer or wine. Pending Studies at Discharge: No Stand-Alone Forms: My [facility] ScoreFeeder, Smoking Cessation Medications and DC Order Prescriptions: New lidocaine 5 % Adhesive Patch,Medicated 1 patch transdermal HS Qty: 7 RF: 0 Continued metoprolol tartrate 25 mg tablet 25 mg PO BID Qty: 180 RF: 3 Eliquis 5 mg tablet 5 mg PO BID Qty: 180 RF: 3 loperamide 2 mg capsule 2 mg PO Q4H PRN (Reason: diarrhea) Qty: 30 RF: 0 furosemide [Lasix] 20 mg tablet 40 mg PO QAM PRN (Reason: Edema, shortness of breath) Qty: 180 RF: 3 acetaminophen [Tylenol Extra Strength] 500 mg tablet 1,000 mg PO HS RF: 0 amlodipine [Norvasc] 2.5 mg tablet 2.5 mg PO QAM RF: 0 cinnamon bark 500 mg capsule 1,000 mg PO QAM RF: 0 omega-3 acid ethyl esters 1 gram capsule 1 cap PO QAM RF: 0 cholecalciferol (vitamin D3) 1,000 unit tablet 1,000 units PO QAM RF: 0 calcium carbonate-vitamin D3 [Calcium with Vitamin D] 600 mg(1,500mg) -400 unit tablet 1 tab PO QAM RF: 0 cyanocobalamin (vitamin B-12) 1,000 mcg capsule 1,000 mcg PO HS RF: 0 Myrbetriq 50 mg tablet extended release 24 hr 50 mg PO QDL RF: 0 pantoprazole 40 mg Tablet,Delayed Release (Dr/Ec) 40 mg PO QAM RF: 0 amiodarone 200 mg tablet 200 mg PO QPM RF: 0 tiotropium bromide 2.5 mcg/actuation mist 2 puffs INH QAM RF: 0 ondansetron HCl [Zofran] 4 mg tablet 4 mg PO QID PRN (Reason: Nausea) Qty: 30 RF: 5 Discharge Orders: Discharge Order (Routine); Ordered 02/20/20 Ordered By: Keiry Garcia Admission Data Admit Date/Time: 02/18/20 17:45 Attending Provider: Aman Buenrostro Admit Provider: Keiry Garcia Primary Care Provider: Li Miner Other Providers: Shan Clark ; Ja Kiran Other Interventions: Discharge Summary Assessment (RN) Last Done: 02/20/20 14:00 Supervising Physician Co-Signing Physician Notes Patient seen and examined on the day of discharge. I agree with the discharge summary by Keiry SCHAFFER. I have reviewed the chart including labs, imaging and plans for discharge. patient doing much better after diuresis, no further diuresis needed, appreciate cardiology input left posterior chest pain is better, not gone performed two step, needs oxygen on exertion, CM to arrange - Acute on chronic heart failure: resolved with Lasix IV, now euvolemic continue with Lasix at home dose - left posterior chest pain: due to recent cardioversion, no evidence of ACS - acute hypoxic respiratory failure: due to acute heart failure, h/o using oxygen at night time arranged for oxygen on exertion at home, try to wean off Coding Level of Care Code D/C Day Management >30 mins Diagnoses Dyspnea R06.00 Atrial fibrillation I48.91 Back pain M54.9 Thrombocytopenia D69.6 Hypertension I10 Hypertension type: unspecified Lymphoma C85.90 Dyslipidemia E78.5 Acid reflux disease K21.9 Esophagitis presence: esophagitis presence not specified Stage 3 chronic kidney disease N18.3 Elevated bilirubin R17 Chronic obstructive pulmonary disease J44.9 Hypokalemia E87.6 DVT prophylaxis Z29.9
== END 2020-02-20 16:52 | disposition home health service (06) ==
LOC: ED 12:17 → 2W 12:17

== ENCOUNTER 2020-11-28 17:34 | Inpatient (IN) ==
[2020-11-28] MEDS ORDERED: ALBUT/IPRATROP 3MG/0.5MG NEB 3 ML VIAL NEB STA (18:01)
[2020-11-28 18:35] LABS: Basophils # (auto) 0.01 K/uL (0-0.2); Basophils % (auto) 0.1 %; Eosinophils # (auto) 0.08 K/uL (0-0.5); Eosinophils % (auto) 1.1 %; Hematocrit (blood only) 26.4 % (37-47); Hemoglobin 8.1 g/dL (12.0-16.0); Immature Granulocytes # (auto) 0.01 K/uL (0.00-0.02); Immature Granulocytes % (auto) 0.1 %; Lymphocytes % (auto) 16.6 %; Mean Corpuscular Hemoglobin 27.5 pg (25-34); Mean Corpuscular Hgb Conc 30.7 g/dL (32-36); Mean Corpuscular Volume 89.5 fL (80-100); Mean Platelet Volume 8.9 fL (7.4-10.4); Monocytes # (auto) 0.75 K/uL (0.11-0.59); Monocytes % (auto) 10.4 %; Neutrophils # (auto) 5.18 K/uL (1.4-6.5); Neutrophils % (auto) 71.7 %; Platelet Count 156 K/uL (130-400); RDW Coefficient of Variation 16.8 % (11.5-14.5); RDW Standard Deviation 55.2 fL (36.4-46.3); Red Blood Count 2.95 M/uL (4.2-5.4); White Blood Count 7.23 K/uL (4.8-10.8)
[2020-11-28 18:55] LABS: Alanine Aminotransferase 18 U/L (12-78); Albumin Level 3.2 gm/dl (3.4-5.0); Aspartate Aminotransferase 28 U/L (15-37); BUN Creatinine Ratio 11.8 (10-20); Blood Urea Nitrogen 14 mg/dl (7-18); Calcium 8.5 mg/dl (8.5-10.1); Carbon Dioxide 29 mmol/L (21-32); Chloride 104 mmol/L (98-107); Glucose 110 mg/dl (70-99); Magnesium 1.3 mg/dl (1.8-2.4); Potassium 3.1 mmol/L (3.5-5.1); Sodium 139 mmol/L (136-145)
[2020-11-28 19:00] LABS: Albumin Globulin Ratio 1.1 (0.9-2); Alkaline Phosphatase 89 U/L (45-117); NT Pro B Type Natriuretic Pept 2400 pg/ml (0-1800); Total Protein 6.2 gm/dl (6.4-8.2); Troponin I 0.027 ng/ml (0-0.045)
--- NOTE | 2020-11-28 19:00 | Emergency Department Note ---
Impression & Plan SOB (shortness of breath), Pleural effusion, Hypomagnesemia, Hypokalemia, Anemia ED Provider Note NAME: SHERI PRATHER AGE: 79 SEX: F : 1940 ARRIVES VIA: Walk-In INFORMANT: Patient, ED PROVIDER(S): Rommel Bernard DO CHIEF COMPLAINT: Shortness of breath HPI: The patient is an 79-year-old female who presented to the emergency department for an evaluation of difficulty breathing. The patient has had ongoing worsening shortness of breath as well as cough over the course of the last year. She states that she was seen by her primary care physician recently and sent directly to pulmonary. When she went to pulmonary she was started on a new inhaler and a course of steroids. Currently they are unsure the exact cause of the patient's shortness of breath. She is been tested 8 times for Covid 19. She denies having any fever but does feel warm. The cough is not productive. She denies having any nausea or vomiting. She denies having any back pain. She does complain of some chest pain especially with cough. She states that she has significant muscle aches but denies having any lower extremity swelling. She is currently taking a blood thinner for atrial fibrillation. She states otherwise she has been compliant with all of her outpatient medication regimen. She was recently started on oral morphine for the cough. She states that it does help somewhat. The patient states that she has been using her nebulizer. She last used it this morning. ROS: See above HPI for pertinent positives & negatives. A total of 10 systems reviewed and were otherwise negative. PAST MEDICAL HISTORY: See Below PAST SURGICAL HISTORY: See Below FAMILY HISTORY: See Below SOCIAL HISTORY: See Below HOME MEDICATIONS: See Below ALLERGIES: See Below VITALS: See Below PHYSICAL EXAMINATION: GENERAL: Patient is awake alert in no acute distress patient is resting comfortably and showing no signs of anxiety EYES: The conjunctivae are clear. The pupils are round and reactive. EARS, NOSE, MOUTH AND THROAT: The nose is without any evidence of any deformity. NECK: The neck is nontender and supple. RESPIRATORY: Shallow respirations were noted. Diminished breath sounds are noted throughout. Scattered expiratory wheezing was noted in the both upper lung powell. CARDIOVASCULAR: Regular rate and rhythm noted there no murmurs rubs or gallops normal S1 normal S2. GASTROINTESTINAL: The abdomen is soft. Abdomen is nontender. MUSCULOSKELETAL/EXTREMITIES: There is no evidence of gross deformity full range of motion is noted in the hips and shoulders. SKIN: There is no obvious evidence of any rash. There is no calf tenderness. NEUROLOGIC: Patient is awake alert and oriented x 3. MEDICAL DECISION MAKING: The patient is an 79-year-old female who presented to the emergency department for an evaluation of difficulty breathing and cough. The patient has been seen by cardiology last fall as well as pulmonary this month. She has been started o n bronchodilators. She is also been started on steroids and a course of morphine because of her cough. Her symptoms continue to worsen. She does have an oxygen requirement. The patient states that she was having worsening symptoms over the course the last week. She presented to the emergency de partment today for this reason. The patient did have abnormal lung sounds on physical exam. She was treated with bronchodilator therapy. She was also treated with IV magnesium as well as oral potassium replacement. I discussed patient's laboratory and radiographic studies with her. Given her findings I did discuss her case with the on-call [facility] hospitalist. It is difficult to see what else the patient would require has an inpatient but given her ongoing and worsening symptoms I am unsure if she can be safely managed as an outpatient. She may require further radiographic studies but her D-dimer is negative at this time. She currently does take oral anticoagulation. The patie nt was also found to have some degree of anemia. [facility]. Triage Nursing notes reviewed. Prior medical records reviewed Vital Signs: reviewed and remarkable for elevated blood pressure. Differential diagnosis: Reactive airway disease, pneumonia, pneumothorax, COPD, CHF, infections, cardiac ischemia, pulmonary embolism, musculoskeletal, gastrointestinal, as well as other pathologies. ER treatment provided: See below Diagnostics interpreted by me: ECG: EKG was obtained in the emergency department. My interpretation is normal sinus rhythm at [address] bpm. There was inferior ST depressions noted. Nonspecific T wave abnormalities were noted. This was compared to a tracing from October 032020. No significant changes were noted. Cardiac Monitoring: An order was placed for continuous cardiac monitoring. The monitor shows a rate of 85 bpm with sinus rhythm. Laboratory studies: As stated above and show below. Imaging studies: See below Consultation(s): Dr. Wolfe was notified about the patient. He will evaluate the patient in the emergency department. Past Med/Surg History Medical History Acid reflux disease Anemia Anticoagulant long-term use Anxiety Atrial tachycardia Biceps muscle tear Chronic pain of left upper extremity SHOULDER Degenerative disc disease Folic acid deficiency History of breast cancer right breast cancer -- CHEMO History of stroke 2014. Small chronic lacunar infarct noted on 03/[address] Hypertension Lumbar stenosis with neurogenic claudication Nephrolithiasis HX OF Nocturnal hypoxia Non-Hodgkin lymphoma 2017 - CHEMO AND RADIATION Osteoarthritis Paroxysmal atrial fibrillation Peripheral neuropathy Port-A-Cath in place HAS IT FLUSHED EVERY 6 WEEKS Rosacea Scoliosis Spinal stenosis Stage 3 chronic kidney disease Thyroid nodule Vitamin D deficiency Surgical History H/O colonoscopy H/O dilation and curettage multiple H/O: hysterectomy EVELIA History of appendectomy History of back surgery lumbar fusion History of bladder surgery bladder tack History of bronchoscopy History of cardioversion 07/2019, 11/2019 History of esophagogastroduodenoscopy (EGD) History of lobectomy of lung Left upper lobe r/t nodule (granuloma) History of mastectomy right with lymph node removal History of tonsillectomy S/P cervical spinal fusion x2 (1970's) unsure of levels. S/P cholecystectomy S/P thyroid biopsy negative Family History Mother Coronary heart disease Cancer Atrial fibrillation Father Coronary heart disease Myocardial infarction Cancer Aunt Cancer Brother Prostate cancer Son Bladder cancer Other No family history of adverse response to anesthesia Stroke Denies family history of Ovarian cancer Kidney disease Breast cancer Colorectal cancer Social History Smoking Status: Never smoker Second Hand Exposure: No; Hx Alcohol Use: No Hx Substance Use: No Preferred Language: Serbian Communication Ability: Effective Visual Impairment: Partially Limited Hearing Ability: Normal 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 Beliefs That Will Affect Care: None marital status: / Current Living Situation: Alone current occupational status: retired How many Children do You have: 1 Feels Safe at Home: Yes Childhood Exposure to Second-Hand Smoke: No caffeine: Yes (daria mariana, pepsi) Dental Care, Regularly: No Physical Activity Frequency: 1-2 Times per Week Physical Activity Frequency Comment: Physical therapy at home Seatbelt Use: sometimes Sunscreen Use: No Do you think of yourself as: straight/heterosexual Assistive Devices: Glasses, Oxygen - Continuous and Walker Allergies Allergies Allergy/AdvReac Type Severity Reaction Status Date / Time dexamethasone Allergy Severe Shortness Verified 11/11/20 10:35 of Breath, throat constriction Sulfa (Sulfonamide Allergy Severe HIVES Verified 11/11/20 10:35 Antibiotics) adhesive tape Allergy Intermediate redness, Verified 11/11/20 10:35 irritation, peels skin off amoxicillin Allergy Unknown hives Verified 11/11/20 10:35 azithromycin Allergy Unknown Hives Verified 11/11/20 10:35 [From Zithromax Z-Siddhartha] clavulanic acid Allergy Unknown hives Verified 11/11/20 10:35 meperidine Allergy Unknown HIVES Verified 11/11/20 10:35 Penicillins Allergy Unknown hives Verified 11/11/20 10:35 cephalexin [From Keflex] Allergy Verified 11/11/20 10:35 ciprofloxacin [From Cipro] AdvReac Severe Vomiting Verified 11/11/20 10:35 codeine AdvReac Unknown NAUSEA AND Verified 11/11/20 10:35 VOMITING ketorolac AdvReac Unknown 'increased Verified 11/11/20 10:35 bleeding' Home Meds Home Medications Medication Instructions Recorded Confirmed acetaminophen 500 mg tablet 1,000 mg PO HS tab 06/03/19 11/28/20 calcium carbonate-vitamin D3 1 tab PO QAM 07/31/19 11/28/20 [Calcium with Vitamin D] cholecalciferol (vitamin D3) 1,000 units PO QAM 07/31/19 11/28/20 cinnamon bark 1,000 mg PO QAM 07/31/19 11/28/20 cyanocobalamin (vitamin B-12) 1,000 mcg PO HS 07/31/19 11/28/20 omega-3 acid ethyl esters 1 cap PO QAM 07/31/19 11/28/20 pantoprazole 40 mg PO QAM 02/12/20 11/28/20 mirabegron 50 mg tablet,extended 50 mg PO DAILY tab 10/14/20 11/28/20 release 24 hr potassium chloride 10 meq PO DAILY 11/28/20 11/28/20 Previous Rx's Medication Instructions Recorded ondansetron HCl [Zofran] 4 mg PO QID PRN #30 tab 02/15/20 amiodarone 200 mg tablet 200 mg PO QPM #90 tab 08/02/20 apixaban 5 mg tablet 5 mg PO BID #180 tab 08/02/20 albuterol sulfate 90 mcg/actuation 2 puff INHALATION Q6H PRN #18 g 09/09/20 aerosol inhaler ipratropium 0.5 mg-albuterol 3 mg 3 ml INHALATION Q4H PRN #180 ml 10/05/20 (2.5 mg base)/3 mL nebulization soln tiotropium 2.5 mcg-olodaterol 2.5 2 puff INHALATION DAILY #4 g 10/05/20 mcg/actuation mist for inhalation metoprolol tartrate 25 mg tablet 12.5 mg PO BID #90 tab 10/06/20 amlodipine 2.5 mg tablet 2.5 mg PO QAM #30 tab 10/25/20 furosemide 20 mg tablet 40 mg PO QAM PRN #180 tab 10/25/20 budesonide 0.5 mg/2 mL suspension 0.5 mg INHALATION BID #120 ml 11/11/20 for nebulization morphine 10 mg/5 mL oral solution 10 mg PO Q6H PRN #100 ml 11/11/20 loperamide 2 mg capsule 2 mg PO Q4H PRN #30 cap 11/17/20 Results & Data (ED) Vital Signs Vital Signs - 24 hr 11/28/20 17:38 11/28/20 18:25 11/28/20 18:30 Temperature 36.1 C L Temperature Source Oral Pulse Rate 74 Pulse Rate [Apical] 74 Pulse Rhythm Regular Pulse Strength Normal Respiratory Rate 26 H 16 Respiratory Effort / Characteristics Labored Non-Labored Spontaneous Respiratory Depth Normal Respiratory Pattern Regular Blood Pressure 146/70 H Blood Pressure Mean 95 Blood Pressure Position Sitting Pulse Oximetry 95 100 Oxygen Delivery Method Nasal Cannula Nasal Cannula Room Air Oxygen Flow Rate 3 3 Sepsis Recent Fever Within 48 Hours No Sepsis New/Unexplained Change in Mental Status No Sepsis Action Taken by Nursing No Action Required 11/28/20 18:31 Temperature Temperature Source Pulse Rate Pulse Rate [Apical] Pulse Rhythm Pulse Strength Respiratory Rate Respiratory Effort / Characteristics Respiratory Depth Respiratory Pattern Blood Pressure Blood Pressure Mean Blood Pressure Position Pulse Oximetry Oxygen Delivery Method Nasal Cannula Oxygen Flow Rate 3 Sepsis Recent Fever Within 48 Hours Sepsis New/Unexplained Change in Mental Status Sepsis Action Taken by Jail Medications Current Medication List: was personally reviewed by me Laboratory Data Attestation: I reviewed the patient's lab results. Result diagrams: 11/28/20 18:27 11/28/20 18:27 Lab Results 11/28/20 11/28/20 11/28/20 Range/Units 18:27 18:27 18:27 WBC 7.23 (4.8-10.8) K/uL RBC 2.95 L (4.2-5.4) M/uL Hgb 8.1 L (12.0-16.0) g/dL Hct 26.4 L (37-47) % MCV 89.5 (80-100) fL MCH 27.5 (25-34) pg MCHC 30.7 L (32-36) g/dL RDW Std Deviation 55.2 H (36.4-46.3) fL RDW Coeff of Zackary 16.8 H (11.5-14.5) % Plt Count 156 (130-400) K/uL MPV 8.9 (7.4-10.4) fL Immature Gran % (Auto) 0.1 % Neut % (Auto) 71.7 % Lymph % (Auto) 16.6 % [place] % (Auto) 10.4 % Eos % (Auto) 1.1 % Baso % (Auto) 0.1 % Neut # (Auto) 5.18 (1.4-6.5) K/uL Lymph # (Auto) 1.20 (1.2-3.4) K/uL [place] # (Auto) 0.75 H (0.11-0.59) K/uL Eos # (Auto) 0.08 (0-0.5) K/uL Baso # (Auto) 0.01 (0-0.2) K/uL Immature Gran # (Auto) 0.01 (0.00-0.02) K/uL PT 11.6 (9.0-12.0) Seconds INR 1.2 H (0.9-1.1) APTT 29.8 (21.0-31.0) Seconds PTT Ratio 1.1 D-Dimer 460 (0-500) ug/L FEU Sodium 139 (136-145) mmol/L Potassium 3.1 L (3.5-5.1) mmol/L Chloride 104 (98-107) mmol/L Carbon Dioxide 29 (21-32) mmol/L Anion Gap 6.0 (3-11) BUN 14 (7-18) mg/dl Creatinine 1.17 (0.6-1.2) mg/dl Est Cr Clr Drug Dosing Not Reportable Est GFR ( Amer) 51.0 ml/min Est GFR (Non-Af Amer) 44.0 ml/min BUN/Creatinine Ratio 11.8 (10-20) Glucose 110 H (70-99) mg/dl Calcium 8.5 (8.5-10.1) mg/dl Magnesium 1.3 L (1.8-2.4) mg/dl Total Bilirubin 1.0 (0.2-1) mg/dl AST 28 (15-37) U/L ALT 18 (12-78) U/L Alkaline Phosphatase 89 (45-117) U/L Troponin I 0.027 (0-0.045) ng/ml NT-Pro-B Natriuret Pep 2400 H (0-1800) pg/ml Total Protein 6.2 L (6.4-8.2) gm/dl Albumin 3.2 L (3.4-5.0) gm/dl Globulin 3.0 (2.5-4.0) gm/dl Albumin/Globulin Ratio 1.1 (0.9-2) Administered Medications Discontinued Medications Albuterol (Albut/Ipratrop 3mg/0.5mg Neb 3 Ml Vial) 3 ml NEB NOW STA Stop: 11/28/20 18:02 Last Admin: 11/28/20 18:24 Dose: 3 ml Documented by: [id number] Imaging Data Radiologist's Impression: Chest X-Ray 11/28/20 17:59 XR chest 1V portable CLINICAL HISTORY: Dyspnea COMPARISON STUDY: 10/03/2020 FINDINGS: The heart is mildly enlarged. There is a left-sided A-Port catheter unchanged in position. There is blunting of the lateral costophrenic angles. There are suspected subtle left basilar airspace opacities. There is subtle interstitial thickening. There is left lung volume loss. Postsurgical changes are present within the thoracolumbar spine.[ IMPRESSION: 1. Stable left lung volume loss 2. Suspected small pleural effusions 3. Persistent interstitial scarring within the left midlung zone 4. Equivocal left basilar airspace opacities ACT 112: Negative or not required by law. Electronically signed by: Armando More M.D. 11/28/2020 7:02 PM Discharge Plan Visit Data Chief Complaint: Shortness of Breath/Dyspnea Stated Complaint: sob, chills ED Provider: Rommel Bernard Discharge Problem: SOB (shortness of breath), Pleural effusion, Hypomagnesemia, Hypokalemia, Anemia Patient Disposition: Being Evaluated by Hospitalist Condition: Good Forms Stand Alone Forms: [facility] [employer] Prescriptions Prescriptions: No Action amiodarone 200 mg tablet 200 mg PO QPM Qty: 90 RF: 3 Eliquis 5 mg tablet 5 mg PO BID Qty: 180 RF: 3 ipratropium-albuterol 0.5 mg-3 mg(2.5 mg base)/3 mL solution for nebulization 3 ml inhalation Q4H PRN (Reason: COPD) Qty: 180 RF: 5 Stiolto Respimat 2.5-2.5 mcg/actuation mist 2 puff inhalation DAILY Qty: 4 RF: 5 metoprolol tartrate 25 mg tablet 12.5 mg PO BID Qty: 90 RF: 3 amlodipine [Norvasc] 2.5 mg tablet 2.5 mg PO QAM Qty: 30 RF: 11 furosemide [Lasix] 20 mg tablet 40 mg PO QAM PRN (Reason: Edema, shortness of breath) Qty: 180 RF: 1 loperamide 2 mg capsule 2 mg PO Q4H PRN (Reason: diarrhea) Qty: 30 RF: 2 albuterol sulfate [Ventolin HFA] 90 mcg/actuation HFA aerosol inhaler 2 puff inhalation Q6H PRN (Reason: shortness of breath or wheezing) Qty: 18 RF: 0 budesonide 0.5 mg/2 mL suspension for nebulization 0.5 mg inhalation BID Qty: 120 RF: 2 morphine 10 mg/5 mL solution 10 mg PO Q6H PRN (Reason: pain) Qty: 100 RF: 0 Myrbetriq 50 mg tablet extended release 24 hr 50 mg PO DAILY RF: 0 acetaminophen [Tylenol Extra Strength] 500 mg tablet 1,000 mg PO HS RF: 0 cinnamon bark 500 mg capsule 1,000 mg PO QAM RF: 0 omega-3 acid ethyl esters 1 gram capsule 1 cap PO QAM RF: 0 cholecalciferol (vitamin D3) 1,000 unit tablet 1,000 units PO QAM RF: 0 calcium carbonate-vitamin D3 [Calcium with Vitamin D] 600 mg(1,500mg) -400 unit tablet 1 tab PO QAM RF: 0 cyanocobalamin (vitamin B-12) 1,000 mcg capsule 1,000 mcg PO HS RF: 0 pantoprazole 40 mg Tablet,Delayed Release (Dr/Ec) 40 mg PO QAM RF: 0 ondansetron HCl [Zofran] 4 mg tablet 4 mg PO QID PRN (Reason: Nausea) Qty: 30 RF: 5 potassium chloride 10 mEq tablet,ER particles/crystals 10 meq PO DAILY RF: 0 Referrals Referrals: Li Miner MD [Primary Care Provider] -
--- NOTE | 2020-11-28 19:03 | XRay Report ---
XR chest 1V portable CLINICAL HISTORY: Dyspnea COMPARISON STUDY: 10/03/2020 FINDINGS: The heart is mildly enlarged. There is a left-sided A-Port catheter unchanged in position. There is blunting of the lateral costophrenic angles. There are suspected subtle left basilar airspac e opacities. There is subtle interstitial thickening. There is left lung volume loss. Postsurgical ch anges are present within the thoracolumbar spine.[ IMPRESSION: 1. Stable left lung volume loss 2. Suspected small pleural effusions 3. Persistent interstitial scarring within the left midlung zone 4. Equivocal left basilar airspace opacities ACT 112: Negative or not required by law. Electronically signed by: Armando More M.D. 11/28/2020 7:02 PM
[2020-11-28 19:14] LABS: D Dimer 460 ug/L FEU (0-500); INR 1.2 (0.9-1.1); Partial Thromboplastin Ratio 1.1; Partial Thromboplastin Time 29.8 Seconds (21.0-31.0); Prothrombin Time 11.6 Seconds (9.0-12.0)
[2020-11-28] MEDS ORDERED: POTASSIUM CHLORIDE CRTAB 20 MEQ TABCR PO STA ×2 (19:23→22:01)
[2020-11-28] MEDS: MAGNESIUM SULFATE / D5W 1 GM/100 ML BAG IV SCH ×3 (19:32→23:24)
[2020-11-28] MEDS ORDERED: ONDANSETRON INJ 2 MG/ML 2 ML VIAL IV STA (19:58)
--- NOTE | 2020-11-28 20:31 | History & Physical Report ---
Date of Service November 28, 2020 Assessment & Plan (1) Anemia: With RDW up to 16.8% this is not acute blood loss, but continue anemia of chronicity - Iron studies have been high normal in the past - LDH 244, haptoglobin pending, reticulocyte count .09 - Peripheral smear - type and screen for PRBC - with her symptoms and chronicities and ? absorption and poor dietary intake, will transfuse 1-2 units of PRBC (2) SOB (shortness of breath): As above - Continue outpatient inhaler therapy - Possible aspiration pneumonia component as chronic aspiration likely - Will place on meropenem for now, with likely ability to quickly de-escalate - Consider barium swallow evaluate swallow/aspiration (3) Diarrhea: Last colonoscopy 2016 - chronic in nature, consider cholestyramine - Medication review - This is assisting with her magnesium depletion as well - Consider PPI need (4) Pleural effusion: Chronic, but larger bilaterally - Continue Lasix (5) Hypomagnesemia: Continue to replete magnesium - will give 2 more GM IV - May need 6-8 GM over couple hours to maintain therapuetic level - Consider discontinuing PPI or change to H2 (6) Hypokalemia: Replete orally - Follow (7) Paroxysmal atrial fibrillation: Controlled and in NSR - continue her amiodarone for now (8) CHF (congestive heart failure): BNP slightly elevated from her previous - As above continue lasix, may need additional IV dose if getting more volume with her PRBC (9) Hypertension: Controlled (10) Lymphoma: Currently no acute needs History of Present Illness Primary Care Provider: Li Miner MD 79 YOF with past medical history of chronic dyspnea, diarrhea, hypomag, hypokalemia, afib on Eliquis, hld, non-Hodgkin lymphoma, breast cancer, vitamin d deficiency, HFrEF, GERD, and multiple allergies/drug intolerances. The patient is chronically dyspneic and followed by cardiology and pulmonary. Her afib is managed with amiodarone and metoprolol, and was seen by her speed runner 2 weeks ago and had a CT scan of the chest done on [id number] for amiodarone induced lung injury. She was also recently started on oral Roxanol for her cough and rib pain secondary to intolerance to codeine. The patient comes in today with increasing in dyspnea and having to increase her oxygen at home. She states that she can only go a few steps before she needs to sit down and increase her oxygen. She is anemic on presentation at 8.1 wither normal ~9- 11 and elevated RDW, platelet count is normal, She denies any blood in her stool, hematemesis, or dark tarry stools. She has had decreased appetite over the past 7 days with only eating a bagel a day, and continues to deal with her chronic diarrhea which she reports was worse this week as well. Her cough remains at her baseline per the patient, however her son at the bedside says that after while eating she has coughing episodes, as well as nursing reports her coughing after swallowing her pill and water. Patient will be admitted, type and cross for PRBC, LDH and iron studies repeated, however have all been normal in the recent 3 months. She will be transfused for symptomatic anemia as well as started on broad spectrum antibiotic for possible aspiration pneumonia. Allergies Allergy/AdvReac Type Severity Reaction Status Date / Time dexamethasone Allergy Severe Shortness Verified 11/11/20 10:35 of Breath, throat constriction Sulfa (Sulfonamide Allergy Severe HIVES Verified 11/11/20 10:35 Antibiotics) adhesive tape Allergy Intermediate redness, Verified 11/11/20 10:35 irritation, peels skin off amoxicillin Allergy Unknown hives Verified 11/11/20 10:35 azithromycin Allergy Unknown Hives Verified 11/11/20 10:35 [From Zithromax Z-Siddhartha] clavulanic acid Allergy Unknown hives Verified 11/11/20 10:35 meperidine Allergy Unknown HIVES Verified 11/11/20 10:35 Penicillins Allergy Unknown hives Verified 11/11/20 10:35 cephalexin [From Keflex] Allergy Verified 11/11/20 10:35 ciprofloxacin [From Cipro] AdvReac Severe Vomiting Verified 11/11/20 10:35 codeine AdvReac Unknown NAUSEA AND Verified 11/11/20 10:35 VOMITING ketorolac AdvReac Unknown 'increased Verified 11/11/20 10:35 bleeding' Home Medications Medication Instructions Recorded Confirmed Type acetaminophen 500 mg tablet 1,000 mg PO HS tab 06/03/19 11/28/20 History calcium carbonate-vitamin D3 1 tab PO QAM 07/31/19 11/28/20 History [Calcium with Vitamin D] cholecalciferol (vitamin D3) 1,000 units PO QAM 07/31/19 11/28/20 History cinnamon bark 1,000 mg PO QAM 07/31/19 11/28/20 History cyanocobalamin (vitamin B-12) 1,000 mcg PO HS 07/31/19 11/28/20 History omega-3 acid ethyl esters 1 cap PO QAM 07/31/19 11/28/20 History pantoprazole 40 mg PO QAM 02/12/20 11/28/20 History ondansetron HCl [Zofran] 4 mg PO QID PRN #30 tab 02/15/20 11/28/20 Rx amiodarone 200 mg tablet 200 mg PO QPM #90 tab 08/02/20 11/28/20 Rx apixaban 5 mg tablet 5 mg PO BID #180 tab 08/02/20 11/28/20 Rx albuterol sulfate 90 mcg/actuation 2 puff INHALATION Q6H PRN #18 g 09/09/20 11/28/20 Rx aerosol inhaler ipratropium 0.5 mg-albuterol 3 mg 3 ml INHALATION Q4H PRN #180 ml 10/05/20 11/28/20 Rx (2.5 mg base)/3 mL nebulization soln tiotropium 2.5 mcg-olodaterol 2.5 2 puff INHALATION DAILY #4 g 10/05/20 11/28/20 Rx mcg/actuation mist for inhalation metoprolol tartrate 25 mg tablet 12.5 mg PO BID #90 tab 10/06/20 11/28/20 Rx mirabegron 50 mg tablet,extended 50 mg PO DAILY tab 10/14/20 11/28/20 History release 24 hr amlodipine 2.5 mg tablet 2.5 mg PO QAM #30 tab 10/25/20 11/28/20 Rx furosemide 20 mg tablet 40 mg PO QAM PRN #180 tab 10/25/20 11/28/20 Rx budesonide 0.5 mg/2 mL suspension 0.5 mg INHALATION BID #120 ml 11/11/20 11/28/20 Rx for nebulization morphine 10 mg/5 mL oral solution 10 mg PO Q6H PRN #100 ml 11/11/20 11/28/20 Rx loperamide 2 mg capsule 2 mg PO Q4H PRN #30 cap 11/17/20 11/28/20 Rx potassium chloride 10 meq PO DAILY 11/28/20 11/28/20 History Past Med/Surg History Medical History (Updated 11/30/20 @ 08:28 by Deisy Davalos MD) Acid reflux disease Anemia Anticoagulant long-term use Anxiety Atrial tachycardia Biceps muscle tear Chronic pain of left upper extremity SHOULDER Chronic respiratory failure with hypoxia Degenerative disc disease Esophageal dysmotility Folic acid deficiency History of breast cancer right breast cancer -- CHEMO History of stroke 2014. Small chronic lacunar infarct noted on 03/[address] Hypertension Lumbar stenosis with neurogenic claudication Nephrolithiasis HX OF Nocturnal hypoxia Non-Hodgkin lymphoma 2017 - CHEMO AND RADIATION Osteoarthritis Paroxysmal atrial fibrillation Peripheral neuropathy Port-A-Cath in place HAS IT FLUSHED EVERY 6 WEEKS Rosacea Scoliosis Spinal stenosis Stage 3 chronic kidney disease Thyroid nodule Vitamin D deficiency Surgical History H/O colonoscopy H/O dilation and curettage multiple H/O: hysterectomy EVELIA History of appendectomy History of back surgery lumbar fusion History of bladder surgery bladder tack History of bronchoscopy History of cardioversion 07/2019, 11/2019 History of esophagogastroduodenoscopy (EGD) History of lobectomy of lung Left upper lobe r/t nodule (granuloma) History of mastectomy right with lymph node removal History of tonsillectomy S/P cervical spinal fusion x2 (s) unsure of levels. S/P cholecystectomy S/P thyroid biopsy negative Family History Mother Coronary heart disease Cancer Atrial fibrillation Father Coronary heart disease Myocardial infarction Cancer Aunt Cancer Brother Prostate cancer Son Bladder cancer Other No family history of adverse response to anesthesia Stroke Denies family history of Ovarian cancer Kidney disease Breast cancer Colorectal cancer Social History Smoking Status: Never smoker Second Hand Exposure: No; Hx Alcohol Use: No Hx Substance Use: No Preferred Language: Finnish Communication Ability: Effective Visual Impairment: Partially Limited Hearing Ability: Normal 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 Machine 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 Required: No Beliefs That Will Affect Care: None marital status: / Current Living Situation: Alone Current Living Situation Comment: lives with grandaughter and her 2 great tere current occupational status: retired How many Children do You have: 1 Feels Safe at Home: Yes Safety Concerns: Feels Safe At This Time Childhood Exposure to Second-Hand Smoke: No caffeine: Yes (daria mariana, pepsi) Dental Care, Regularly: No Physical Activity Frequency: 1-2 Times per Week Physical Activity Frequency Comment: Physical therapy at home Seatbelt Use: sometimes Sunscreen Use: No Do you think of yourself as: straight/heterosexual Assistive Devices: Oxygen - Continuous Review of Systems Review of Systems: REVIEW OF SYSTEMS: Constitutional: (+) sweats or chills, No fever Eyes: No diplopia, no worsening or blurred vision ENT: normal hearing, no trouble swallowing Respiratory: (+) cough, sputum, dyspnea at rest or on exertion Cardiovascular: (+)palpitations, No chest pain, tightness Abdomen: No pain, nausea, vomiting, diarrhea or constipation Musculoskeletal: (+) joint pain, calf pain, swelling Neurologic: No weakness, numbness/tingling, or balance problems Psychiatric: No anxiety or depression Skin: No rash or itch Physical Exam Physical Exam: PHYSICAL EXAM: General: awake, alert, no apparent distress Head: Normocephalic, atraumatic ENT: PERRL, EOMI, no pharyngeal exudate, mucous membranes moist Neuro: AAO x 3, speech clear and appropriate, strength intact bilaterally 5/5, sensation intact and equal all extremities and dermatomes, no pronator drift Chest: equal rise and fall of the chest, no accessory muscle use, scattered crackles, on room air Cardiac: Regular rate and rhythm, telemetry reviewed, skin warm dry, cap refill <3 seconds, peripheral pulses +2 no JVD, no murmur, no edema GI: NABS x 4 quadrants, soft, nontender to palpation, no rebound, guarding or tenderness : Spontaneously voiding, no pain, no CVA tenderness, Extremities: Normal inspection, no peripheral edema or erythema, calfs nontender to palpation Psych: Normal mood and affect Skin: no rash or erythema Results & Data Results & Data ([facility]) Vital Signs (Past 12 Hours) Vital Signs Temp Pulse Pulse Resp BP Pulse Ox 11/28/20 18:25 74 16 100 11/28/20 17:38 36.1 C L 74 26 H 146/70 H 95 Laboratory Results Abnormal lab results 11/28/20 11/28/20 11/28/20 Range/Units 18:27 18:27 18:27 RBC 2.95 L (4.2-5.4) M/uL Hgb 8.1 L (12.0-16.0) g/dL Hct 26.4 L (37-47) % MCHC 30.7 L (32-36) g/dL RDW Std Deviation 55.2 H (36.4-46.3) fL RDW Coeff of Zackary 16.8 H (11.5-14.5) % Archer # (Auto) 0.75 H (0.11-0.59) K/uL INR 1.2 H (0.9-1.1) Potassium 3.1 L (3.5-5.1) mmol/L Glucose 110 H (70-99) mg/dl Magnesium 1.3 L (1.8-2.4) mg/dl NT-Pro-B Natriuret Pep 2400 H (0-1800) pg/ml Total Protein 6.2 L (6.4-8.2) gm/dl Albumin 3.2 L (3.4-5.0) gm/dl Diagnostic Findings Chest X-Ray 11/28/20 17:59 XR chest 1V portable CLINICAL HISTORY: Dyspnea COMPARISON STUDY: 10/03/2020 FINDINGS: The heart is mildly enlarged. There is a left-sided A-Port catheter unchanged in position. There is blunting of the lateral costophrenic angles. There are suspected subtle left basilar airspace opacities. There is subtle interstitial thickening. There is left lung volume loss. Postsurgical changes are present within the thoracolumbar spine.[ IMPRESSION: 1. Stable left lung volume loss 2. Suspected small pleural effusions 3. Persistent interstitial scarring within the left midlung zone 4. Equivocal left basilar airspace opacities Electronically signed by: Armando More M.D. 11/28/2020 7:02 PM Medications Administered Discontinued Medications Albuterol (Albut/Ipratrop 3mg/0.5mg Neb 3 Ml Vial) 3 ml NEB NOW STA Stop: 11/28/20 18:02 Last Admin: 11/28/20 18:24 Dose: 3 ml Documented by: [id number] Magnesium Sulfate/Dextrose (Magnesium Sulfate / D5w) 1 gm in 100 mls @ 100 mls/hr IV Q1H [place] Stop: 11/28/20 21:15 Last Admin: 11/28/20 20:49 Dose: 100 mls/hr Documented by: [id number] Infusion: 11/28/20 20:49 Dose: 0 mls/hr Documented by: [id number] Admin: 11/28/20 19:32 Dose: 100 mls/hr Documented by: [id number] Ondansetron HCl (Ondansetron Inj 2 Mg/Ml 2 Ml Vial) 4 mg IV NOW STA Stop: 11/28/20 19:59 Last Admin: 11/28/20 20:13 Dose: 4 mg Documented by: [id number] Potassium Chloride (Potassium Chloride Crtab 20 Meq Tabcr) 20 meq PO NOW STA Stop: 11/28/20 19:24 Last Admin: 11/28/20 19:32 Dose: 20 meq Documented by: [id number] ECG Additional Comments: Normal sinus rhythm Nonspecific ST and T wave abnormality Abnormal ECG When compared with ECG of 03-OCT-2020 09:21, Nonspecific T wave abnormality, worse in Lateral leads Code Status & VTE Plan Code Status CODE: DNR/DNI VTE: SCD's, Eliquis VTE Prophylaxis Plan VTE Prophylaxis will be ordered: Yes Supervising Physician Co-Signing Physician Notes Attending addendum: I have physically seen this patient, have supervised the NURYS's activities, and agree with the H&P unless as otherwise noted. Assessment and Plan: Anemia of chronic disease- To receive 1 unit PRBCs from the ED H&H every 6x3 Peripheral smear Shortness of breath/secondary to above- Aspiration pneumonia- Empiric meropenem Speech therapy consult to be considered Chronic diarrhea- Consider add cholestyramine twice daily Remaining orders and notations as noted PG Care Time/CCT Total # of Minutes Spent Total Time Spent with Patient: Total time spent is greater than 50% in coordination of care (as documented) at patient's floor/unit and/or counseling patient: Coding Level of Care Code 14556 Initial Inpt Care Lvl 3 Diagnoses Anemia D64.9 Anemia type: unspecified type SOB (shortness of breath) R06.02 Diarrhea R19.7 Diarrhea type: unspecified type Pleural effusion J90 Hypomagnesemia E83.42 Hypokalemia E87.6 Paroxysmal atrial fibrillation I48.0 CHF (congestive heart failure) I50.9 Heart failure chronicity: acute Heart failure type: unspecified Hypertension I10 Hypertension type: unspecified Lymphoma C85.90 Lymphoma site: unspecified region Lymphoma type: non-Hodgkin Non-Hodgkin lymphoma type: unspecified type (1) CHF (congestive heart failure) Heart failure chronicity: acute Heart failure type: unspecified Qualified Code(s): I50.9 - Heart failure, unspecified (2) Anemia Anemia type: unspecified type Qualified Code(s): D64.9 - Anemia, unspecified (3) Diarrhea Diarrhea type: unspecified type Qualified Code(s): R19.7 - Diarrhea, unspecified (4) Lymphoma Lymphoma site: unspecified region Lymphoma type: non-Hodgkin Non-Hodgkin lymphoma type: unspecified type Qualified Code(s): C85.90 - Non-Hodgkin lymphoma, unspecified, unspecified site (5) Hypertension Hypertension type: unspecified Qualified Code(s): I10 - Essential (primary) hypertension
[2020-11-28 20:40] LABS: Ferritin 28.4 ng/ml (8-388)
[2020-11-28 21:38] LABS: Reticulocytes # 0.09 10^6/uL (0.02-0.10)
[2020-11-28] MEDS ORDERED: SPIRONOLACTONE 25 MG TAB PO ONE (22:00)
[2020-11-28] MEDS ORDERED: ALBUT/IPRATROP 3MG/0.5MG NEB 3 ML VIAL INH PRN (22:12)
[2020-11-28] MEDS ORDERED: ALBUTEROL HFA 8 GM INHALER INH PRN (22:12)
[2020-11-28] MEDS ORDERED: SODIUM CHLORIDE 0.9% 250 ML IV PRN (22:12)
[2020-11-28] MEDS ORDERED: POLYETHYLENE (MIRALAX) 17 GM PACK PO PRN (22:12)
[2020-11-28] MEDS ORDERED: ONDANSETRON 4 MG OD TAB PO PRN (22:42)
[2020-11-28] MEDS: ERTAPENEM SODIUM 1,000 MG in SODIUM CHLORIDE 0.9% 50 ML IV SCH (23:20)
[2020-11-28] MEDS: APIXABAN 5 MG TABLET PO SCH (23:21)
[2020-11-28] MEDS: AMIODARONE 200 MG TAB PO SCH ×2 (23:21→23:36)
[2020-11-28] MEDS: BUDESONIDE 0.5 MG/2 ML VIAL (PULMICORT) INH SCH (23:22)
[2020-11-28] MEDS: METOPROLOL TARTRATE 25 MG TAB PO SCH (23:22)
[2020-11-28] MEDS: CYANOCOBALAMIN 500 MCG TABLET (VITAMIN B-12) PO SCH (23:23)
[2020-11-28] MEDS: ACETAMINOPHEN 500 MG TAB PO SCH (23:24)
[2020-11-28] MEDS: ONDANSETRON INJ 2 MG/ML 2 ML VIAL IV PRN (23:25)
[2020-11-29] MEDS: MAGNESIUM SULFATE / D5W 1 GM/100 ML BAG IV SCH ×2 (01:56→04:17)
[2020-11-29 04:34] LABS: Iron 39 mcg/dl (35-150); Transferrin 279 mg/dl (200-360); Transferrin Percent Saturation 10 % (15-50)
[2020-11-29] MEDS: ONDANSETRON INJ 2 MG/ML 2 ML VIAL IV PRN (06:22)
[2020-11-29] MEDS: BUDESONIDE 0.5 MG/2 ML VIAL (PULMICORT) INH SCH ×2 (07:11→19:24)
[2020-11-29] MEDS: OMEGA-3 (PURIFIED FISH OIL) 1 GM CAP PO SCH (08:31)
[2020-11-29] MEDS: MIRABEGRON ER 25 MG TAB PO SCH (08:31)
[2020-11-29] MEDS: PANTOprazole 40 MG TAB PO SCH (08:31)
[2020-11-29] MEDS: CHOLECALCIFEROL 1,000 UNITS 25 MCG TAB PO SCH (08:31)
[2020-11-29] MEDS: METOPROLOL TARTRATE 25 MG TAB PO SCH ×2 (08:32→20:01)
[2020-11-29] MEDS: APIXABAN 5 MG TABLET PO SCH ×2 (08:32→20:02)
[2020-11-29] MEDS: FUROSEMIDE 40 MG TAB PO SCH (08:32)
[2020-11-29] MEDS: POTASSIUM CHLORIDE 10 MEQ TABCR PO SCH (08:32)
[2020-11-29] MEDS: CALCIUM 600MG + VIT D 400 IU TAB PO SCH (08:32)
[2020-11-29] MEDS: amLODIPine BESYLATE 5 MG TAB PO SCH (08:32)
[2020-11-29] MEDS: UMECLIDINIUM/VILANTEROL 62.5/25MCG 7 PUFFS/INHALER INH SCH (08:33)
[2020-11-29 08:48] LABS: Basophils # (auto) 0.01 K/uL (0-0.2); Basophils % (auto) 0.2 %; Eosinophils # (auto) 0.12 K/uL (0-0.5); Eosinophils % (auto) 1.8 %; Hematocrit (blood only) 28.3 % (37-47); Hemoglobin 8.7 g/dL (12.0-16.0); Immature Granulocytes # (auto) 0.01 K/uL (0.00-0.02); Immature Granulocytes % (auto) 0.2 %; Lymphocytes # (auto) 1.09 K/uL (1.2-3.4); Lymphocytes % (auto) 16.5 %; Mean Corpuscular Hemoglobin 26.5 pg (25-34); Mean Corpuscular Hgb Conc 30.7 g/dL (32-36); Mean Corpuscular Volume 86.3 fL (80-100); Mean Platelet Volume 9.3 fL (7.4-10.4); Monocytes # (auto) 0.69 K/uL (0.11-0.59); Monocytes % (auto) 10.4 %; Neutrophils # (auto) 4.69 K/uL (1.4-6.5); Neutrophils % (auto) 70.9 %; Platelet Count 142 K/uL (130-400); RDW Coefficient of Variation 17.3 % (11.5-14.5); Red Blood Count 3.28 M/uL (4.2-5.4); White Blood Count 6.61 K/uL (4.8-10.8)
--- NOTE | 2020-11-29 08:50 | CT Scan Report ---
CT OF THE CHEST WITHOUT IV CONTRAST CLINICAL HISTORY: SOB, abnormal CXR COMPARISON STUDY: CT November 18, 2020. Chest radiograph November 28, 2020. CT DOSE: 861.11 mGy.cm TECHNIQUE: Axial images of the chest were obtained without IV contrast. Images were reviewed in the axial, sagittal, and coronal planes. IV contrast was not administered for this examination. Automat ed exposure control was utilized for the study. A dose lowering technique was utilized adhering to t he principles of ALARA. FINDINGS: Left subclavian Lolobj-x-Vlar is in place. Right mastectomy is noted. No enlarged axillary , mediastinal or hilar lymph nodes are present. There is moderate cardiomegaly. No pericardial effusi on is noted. Small bilateral pleural effusions have slightly increased since chest CT of November 18, 2020 . There is mild intralobular septal thickening. Subpleural opacities favor atelectasis. There is no p neumothorax. Postoperative findings within the left upper lobe are noted. There is emphysema. Central airways are patent. Postoperative findings within the thoracolumbar spine are partially imaged. IMPRESSION: 1. Small bilateral pleural effusions, slightly increased in size since chest CT of November 18, 2020. Asso ciated subpleural opacities favor atelectasis. 2. Mild interstitial pulmonary edema. 2. Emphysema. ACT 112: Negative or not required by law. Electronically signed by: Wilberto Zhong M.D. 11/29/2020 8:49 AM
[2020-11-29 09:07] LABS: BUN Creatinine Ratio 10.6 (10-20); Calcium 8.5 mg/dl (8.5-10.1); Creatinine Clr Calc Pharmacy 43.8 ml/min; Est GFR (African American) 53.7 ml/min; Est GFR (Non-African American) 46.4 ml/min; Magnesium 2.6 mg/dl (1.8-2.4)
[2020-11-29 09:17] LABS: Thyroid Stimulating Hormone 0.843 uIu/ml (0.300-4.500)
[2020-11-29] MEDS ORDERED: POTASSIUM CHLORIDE CRTAB 20 MEQ TABCR PO STA ×2 (10:39→17:42)
--- NOTE | 2020-11-29 11:09 | Electrocardiogram Report ---
Test Reason : Blood Pressure : / mmHG Vent. Rate : 070 BPM Atrial Rate : 070 BPM P-R Int : 200 ms QRS Dur : 084 ms QT Int : 280 ms P-R-T Axes : 051 068 213 degrees QTc Int : 302 ms Normal sinus rhythm Nonspecific ST and T wave abnormality Abnormal ECG When compared with ECG of 03-OCT-2020 09:21, No significant change Confirmed by Jesus Portillo ([id number]) on 11/29/2020 11:08:46 AM Referred By: REFERRED SELF Confirmed By:Jesus Portillo
--- NOTE | 2020-11-29 15:06 | Fluoroscopy Report ---
FL video swallow HISTORY: assess for aspiration TECHNIQUE: Video fluoroscopic evaluation of swallowing was performed in the AP and lateral projection s by the speech pathology staff. The patient is fed nectar-thick and thin liquid barium, a barium coa shira wafer, and barium pudding. FLUOROSCOPY TIME: 1.1 minutes. NUMBER OF FLUOROSCOPY IMAGES: 0 COMPARISON STUDY: None. FINDINGS: There was no evidence of aspiration or penetration. There is minimal vallecular residue. Th ere is disordered esophageal motility. IMPRESSION: 1. No evidence of aspiration. Disordered esophageal motility. 2. Please see the speech pathologist report for detailed findings and recommendations. ACT 112: Negative or not required by law. Electronically signed by: Armando More M.D. 11/29/2020 3:04 PM
[2020-11-29] MEDS ORDERED: Nursing to Pharmacy Communication SCH (15:45)
[2020-11-29] MEDS: AMIODARONE 200 MG TAB PO SCH (16:09)
[2020-11-29] MEDS ORDERED: FUROSEMIDE 20 MG in SYRINGE 0 ML IV ONE (17:41)
--- NOTE | 2020-11-29 17:41 | Hospitalist Progress Note ---
Date of Service November 29, 2020 Assessment & Plan (1) SOB (shortness of breath): Presents with worsening shortness of breath and cough worsening in the last couple of weeks Has a history of CHF, COPD Has been tried on escalating doses of p.o. Lasix and prednisone course as an outpatient Aspiration was suspected on admission and she was started on ertapenem and had a video swallow study today which was normal but showed esophageal dysmotility Chest CT shows small bilateral pleural effusions slightly increased in size since 11/18/2020 with associated subpleural opacities favoring atelectasis, mild interstitial pulmonary edema, and emphysema. -Continue ertapenem for now -Continue to diurese with IV Lasix-we will give a dose this evening -Follow volume status -Continue outpatient inhaler therapy Continue supplemental O2 to keep pulse ox greater than 90% Follows with pulmonology PA as an outpatient (2) Anemia: Hemoglobin chronically low but has dropped lower in the last couple of months from 11 down to 8 Transfuse 1 unit PRBCs here upon admission and hemoglobin up to 8.7 Transferrin saturation low at 10% but serum iron and ferritin are normal, B12 and folate have been checked recently-B12 is normal and folate was low but then improved with replacement Patient reports she has not been able to take the Pro as it makes her sick to her stomach We will check again in the morning folate levels and B12 - LDH 244, haptoglobin pending, reticulocyte count .09 - Peripheral smear without atypia Follow CBC Seems to be anemia of chronic disease Also with history of non-Hodgkin's lymphoma and has not followed up with oncology in 1 year-she has an appointment scheduled for in the next 2 weeks 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 (3) Diarrhea: Chronic Last colonoscopy 2016 - chronic in nature, consider cholestyramine - This is assisting with her magnesium depletion as well - Consider PPI need-May discontinue as this could worsen diarrhea (4) Pleural effusion: Chronic, but larger bilaterally - Continue Lasix as above Follow chest x-ray in the morning (5) Hypomagnesemia: Quite low on admission Was replaced with IV magnesium Follow level in the morning - Consider discontinuing PPI or change to H2 (6) Hypokalemia: Low again today Replace with IV potassium chloride as oral potassium chloride makes her extremely nauseated Replace magnesium as well (7) Paroxysmal atrial fibrillation: Controlled and remains in NSR - continue her amiodarone -Continue Eliquis 5 mg p.o. twice daily (8) CHF (congestive heart failure): With acute on chronic diastolic CHF BNP slightly elevated from her previous With increasing size of pleural effusions and significant cough, ongoing hypoxia Giving IV Lasix as above Continue home p.o. Lasix in the morning Last echocardiogram 6 months ago with preserved EF (9) Hypertension: Blood pressure controlled Continue amlodipine, Lasix, metoprolol tartrate (10) Lymphoma: History of non-Hodgkin's lymphoma stage Ia in the left axilla, treated with chemotherapy and radiation Has upcoming follow-up appoint with oncology in 2 weeks With anemia, need to follow-up with hematology (11) Acid reflux disease: On PPI Consider discontinuation given low magnesium and diarrhea (12) Dyslipidemia: Continue fish oil (13) Folic acid deficiency: Previously low at 5 and was replaced and is now up to 12 on last check She is unable to tolerate p.o. folic acid at home as it makes her nauseated Replace with IV while here if remains low (14) Sleep apnea: Was supposed to have sleep study but I do not see evidence that was ever done Continue supplemental O2 (15) Stage 3 chronic kidney disease: Creatinine 1.12, around baseline -Avoid nephrotoxins -renally dose meds when appropriate -follow BMP (16) Chronic obstructive pulmonary disease: Continue home inhalers No active wheezing but is coughing likely due to pleural effusions (17) Chronic respiratory failure with hypoxia: On 3 L nasal cannula continuously at home (18) Esophageal dysmotility: Noted on video swallow today No evidence of aspiration Speech therapy following Slippery diet (19) DVT prophylaxis: Eliquis Disposition-continued stay PT/OT consults placed Admission and Anticipated Discharge Date Admission Date: November 28, 2020 Subjective Patient reports feeling a little bit better but still coughing quite a bit anytime she takes a deep breath. Denies chest pain. No nausea or vomiting, is e ating. Telemetry with normal sinus rhythm, PACs, rates 50s to 60s Review of Systems Review of Systems: All systems reviewed & are unremarkable except as noted in HPI & below Physical Exam Constitutional: WD/WN, vitals as above + ill appearing Eyes: + anicteric sclerae Neck: trachea midline, no thyromegaly Respiratory: normal respiratory effort and + cough Auscultation: + crackles (Bibasilar); no rhonchi and no wheezes Cardiovascular: Rate/Rhythm: regular rate and regular rhythm Heart Sounds: no murmur Extremities: + edema (1+ pitting edema legs bilaterally) Chest (Breasts): Chest: normal inspection of chest Gastrointestinal (Abdomen): normal bowel sounds, soft, nontender, no hepatosplenomegaly Musculoskeletal: Extremities: extremities normal to inspection; no cyanosis and no clubbing Skin: no rashes, warm and dry Neurologic: moves all extremities and awake; no focal motor deficits Psychiatric: A+Ox3, euthymic affect Results & Data Results & [facility] ([facility]) Vital Signs (Past 12 Hours) Vital Signs Temp Pulse Pulse Resp BP Pulse Ox 11/29/20 15:11 36.5 C 56 L 17 145/77 H 95 11/29/20 14:52 53 L 11/29/20 11:40 36.8 C 74 16 129/59 L 95 11/29/20 07:50 37.0 C 66 18 132/62 96 11/29/20 07:15 66 11/29/20 07:14 59 L 18 90 Laboratory Results Labs reviewed-hemoglobin 8.7 Iron transferrin saturation 10%, potassium 3.0 PG Care Time/CCT Total # of Minutes Spent Total Time Spent with Patient: Total time spent is greater than 50% in coordination of care (as documented) at patient's floor/unit and/or counseling patient: Coding Level of Care Code 10202 Subseq Hosp Care Lvl 3 Diagnoses SOB (shortness of breath) R06.02 Anemia D64.9 Anemia type: unspecified type Diarrhea R19.7 Diarrhea type: unspecified type Pleural effusion J90 Hypomagnesemia E83.42 Hypokalemia E87.6 Paroxysmal atrial fibrillation I48.0 CHF (congestive heart failure) I50.9 Heart failure chronicity: acute Heart failure type: unspecified Hypertension I10 Hypertension type: unspecified Lymphoma C85.90 Lymphoma site: unspecified region Lymphoma type: non-Hodgkin Non-Hodgkin lymphoma type: unspecified type Acid reflux disease K21.9 Esophagitis presence: esophagitis presence not specified Dyslipidemia E78.5 Folic acid deficiency E53.8 Sleep apnea G47.30 Stage 3 chronic kidney disease N18.3 Chronic obstructive pulmonary disease J44.9 Chronic respiratory failure with hypoxia J96.11 Esophageal dysmotility K22.4 DVT prophylaxis Z29.9 (1) CHF (congestive heart failure) Heart failure chronicity: acute Heart failure type: unspecified Qualified Code(s): I50.9 - Heart failure, unspecified (2) Anemia Anemia type: unspecified type Qualified Code(s): D64.9 - Anemia, unspecified (3) Diarrhea Diarrhea type: unspecified type Qualified Code(s): R19.7 - Diarrhea, unspecified (4) Lymphoma Lymphoma site: unspecified region Lymphoma type: non-Hodgkin Non-Hodgkin lymphoma type: unspecified type Qualified Code(s): C85.90 - Non-Hodgkin lymphoma, unspecified, unspecified site (5) Hypertension Hypertension type: unspecified Qualified Code(s): I10 - Essential (primary) hypertension (6) Acid reflux disease Esophagitis presence: esophagitis presence not specified Qualified Code(s): K21.9 - Gastro-esophageal reflux disease without esophagitis
[2020-11-29] MEDS ORDERED: FUROSEMIDE 40 MG in SYRINGE 0 ML IV ONE (18:00)
[2020-11-29] MEDS: POTASSIUM CHLORIDE / WTR 20 MEQ/100 ML PLCT IV SCH ×2 (18:18→19:59)
[2020-11-29] MEDS: CYANOCOBALAMIN 500 MCG TABLET (VITAMIN B-12) PO SCH (20:02)
[2020-11-29] MEDS: ACETAMINOPHEN 500 MG TAB PO SCH (20:02)
[2020-11-29] MEDS: ERTAPENEM SODIUM 1,000 MG in SODIUM CHLORIDE 0.9% 50 ML IV SCH (22:07)
[2020-11-30] MEDS: BUDESONIDE 0.5 MG/2 ML VIAL (PULMICORT) INH SCH ×2 (07:14→19:13)
[2020-11-30] MEDS: UMECLIDINIUM/VILANTEROL 62.5/25MCG 7 PUFFS/INHALER INH SCH (07:57)
[2020-11-30] MEDS: PANTOprazole 40 MG TAB PO SCH (07:58)
[2020-11-30] MEDS: METOPROLOL TARTRATE 25 MG TAB PO SCH ×2 (07:58→19:49)
[2020-11-30] MEDS: POTASSIUM CHLORIDE 10 MEQ TABCR PO SCH (07:58)
[2020-11-30] MEDS: OMEGA-3 (PURIFIED FISH OIL) 1 GM CAP PO SCH (07:59)
[2020-11-30] MEDS: CALCIUM 600MG + VIT D 400 IU TAB PO SCH (07:59)
[2020-11-30] MEDS: amLODIPine BESYLATE 5 MG TAB PO SCH (07:59)
[2020-11-30] MEDS: FUROSEMIDE 40 MG TAB PO SCH (07:59)
[2020-11-30] MEDS: APIXABAN 5 MG TABLET PO SCH ×2 (08:00→19:49)
[2020-11-30] MEDS: CHOLECALCIFEROL 1,000 UNITS 25 MCG TAB PO SCH (08:01)
[2020-11-30] MEDS: MIRABEGRON ER 25 MG TAB PO SCH (08:01)
[2020-11-30 09:19] LABS: Basophils # (auto) 0.01 K/uL (0-0.2); Basophils % (auto) 0.2 %; Eosinophils # (auto) 0.15 K/uL (0-0.5); Eosinophils % (auto) 2.4 %; Hematocrit (blood only) 29.7 % (37-47); Hemoglobin 9.1 g/dL (12.0-16.0); Immature Granulocytes # (auto) 0.02 K/uL (0.00-0.02); Immature Granulocytes % (auto) 0.3 %; Lymphocytes # (auto) 1.03 K/uL (1.2-3.4); Lymphocytes % (auto) 16.2 %; Mean Corpuscular Hgb Conc 30.6 g/dL (32-36); Mean Corpuscular Volume 88.1 fL (80-100); Mean Platelet Volume 9.2 fL (7.4-10.4); Monocytes # (auto) 0.49 K/uL (0.11-0.59); Monocytes % (auto) 7.7 %; Neutrophils # (auto) 4.67 K/uL (1.4-6.5); Neutrophils % (auto) 73.2 %; Platelet Count 158 K/uL (130-400); RDW Coefficient of Variation 17.4 % (11.5-14.5); Red Blood Count 3.37 M/uL (4.2-5.4); White Blood Count 6.37 K/uL (4.8-10.8)
[2020-11-30 09:48] LABS: BUN Creatinine Ratio 6.8 (10-20); Calcium 8.9 mg/dl (8.5-10.1); Creatinine Clr Calc Pharmacy 36.4 ml/min; Est GFR (African American) 43.3 ml/min; Est GFR (Non-African American) 37.3 ml/min; Magnesium 1.9 mg/dl (1.8-2.4); Potassium 3.4 mmol/L (3.5-5.1)
[2020-11-30] MEDS: HEPARIN 100 UNIT/ML 5ML FLUSH FLUSH PRN (10:31)
[2020-11-30] MEDS ORDERED: POTASSIUM CHLORIDE / WTR 20 MEQ/100 ML PLCT IV STA (10:34)
[2020-11-30] MEDS ORDERED: MAGNESIUM SULFATE / D5W 1 GM/100 ML BAG IV ONE (10:34)
--- NOTE | 2020-11-30 13:59 | Billing Data ---
Date of Service November 30, 2020 Coding Level of Care Code 16194 Initial Inpt Care Lvl 3
--- NOTE | 2020-11-30 14:19 | XRay Report ---
XR chest 1V portable CLINICAL HISTORY: Follow-up hypoxia, pleural effusions COMPARISON STUDY: November 21, 2020 FINDINGS: There is no definite pneumothorax seen however evaluation is limited because bilateral lung apices ar e obscured by patient's chin.. Stable small left pleural effusion. Previously seen questionable left retrocardiac opacity is improved since prior study likely represent atelectasis. Stable minimal prominence of pulmonary interstitium is again seen bilaterally. Cardiomediastinal silhouette is within normal limits in size. Pulmonary vasculature is indistinct.. Aorta is calcified. Osseous structures: Degenerative changes of the left shoulder. Orthopedic hardware is again seen pro jecting at the thoracolumbar spine. Stable position of left-sided subclavian central line. IMPRESSION: 1. The left pleural effusion. Interval improvement of left retrocardiac opacity likely representing atelectasis. 2. Support apparatus as above. ACT 112: Negative or not required by law. The above report was generated using voice recognition software. It may contain grammatical, syntax o r spelling errors. Electronically signed by: Brandee Peguero DO 11/30/2020 2:18 PM
[2020-11-30] MEDS: AMIODARONE 200 MG TAB PO SCH (15:50)
--- NOTE | 2020-11-30 18:10 | Hospitalist Progress Note ---
Date of Service November 30, 2020 Assessment & Plan (1) Anemia: Hemoglobin chronically low but has dropped lower in the last couple of months from 11 down to 8 on admission Is normocytic Was transfused 1 unit PRBCs here upon admission and hemoglobin now 9.1 Transferrin saturation low at 10% but serum iron and ferritin are normal, B12 and folate normal although folate has been low in the past Patient reports she has not been able to take the Folic acid as it makes her sick to her stomach - LDH 244, haptoglobin pending, reticulocyte count .09 - Peripheral smear without atypia Follow CBC Seems to be anemia of chronic disease Also with history of non-Hodgkin's lymphoma and has not followed up with oncology in 1 year-she has an appointment scheduled for in 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 Lasix and prednisone course as an outpatient Aspiration was suspected on admission and she was started on ertapenem and had a video swallow study here which was normal but showed esophageal dysmotility Chest CT shows small bilateral pleural effusions slightly increased in size since 11/18/2020 with associated subpleural opacities favoring atelectasis, mild interstitial pulmonary edema, and emphysema. Now improving with IV diuresis -Continue ertapenem for suspected pneumonia -Continue to diurese with IV Lasix-we will give another dose this evening and perhaps another dose in the morning if renal function stays -Follow volume status-weight is down and is net negative on eyes nose -Continue outpatient inhaler therapy Continue supplemental O2 to keep pulse ox greater than 90% Follows with pulmonology PA as an outpatient (3) Diarrhea: Chronic, not really having much here Last colonoscopy 2017 - chronic in nature, consider cholestyramine - This is assisting with her magnesium depletion as well - Consider PPI need-May discontinue as this could worsen diarrhea (4) Pleural effusion: Chronic, but larger bilaterally than previously Repeat chest x-ray on 11/30 with slight improvement on the left with less atelectasis - Continue Lasix as above (5) Hypomagnesemia: Quite low on admission Was replaced with IV magnesium Now only mildly low 1.9-get another 1 g magnesium sulfate to keep magnesium above 2 - Consider discontinuing PPI or change to H2 (6) Hypokalemia: Low again today in the setting of giving IV Lasix Replace with IV potassium chloride 40 mEq Replace magnesium as well (7) Paroxysmal atrial fibrillation: Controlled and remains in NSR here on telemetry - continue her amiodarone -Continue Eliquis 5 mg p.o. twice daily Continue Toprol tartrate 12.5 mg p.o. twice daily (8) CHF (congestive heart failure): With acute on chronic diastolic CHF BNP slightly elevated from her previous at 2400 With increasing size of pleural effusions and significant cough, ongoing hypoxia Giving IV Lasix as above-give another dose of IV Lasix this evening Weight is down, is and is net negative Clinically improving Chest x-ray on 11/30 improved aeration Last echocardiogram 6 months ago with preserved EF -Check proBNP in the morning -May give another dose of IV Lasix in the morning if creatinine stable -Hold home p.o. Lasix (9) Hypertension: Blood pressure controlled Continue amlodipine, Lasix, metoprolol tartrate (10) Chronic respiratory failure with hypoxia: On 3 L nasal cannula continuously at home (11) Chronic obstructive pulmonary disease: Continue home inhalers No active wheezing but is coughing likely due to pleural effusions (12) Dyslipidemia: Continue fish oil (13) Esophageal dysmotility: Noted on video swallow today No evidence of aspiration Speech therapy following Slippery diet (14) Folic acid deficiency: Previously low at 5 and was replaced and is now up to 9 She is unable to tolerate p.o. folic acid at home as it makes her nauseated (15) Sleep apnea: Was supposed to have sleep study but I do not see evidence that was ever done Continue supplemental O2 (16) Lymphoma: History of non-Hodgkin's lymphoma stage Ia in the left axilla, treated with chemotherapy and radiation Has upcoming follow-up appoint with oncology in 2 weeks With anemia, need to follow-up with hematology (17) DVT prophylaxis: Arvin Disposition-continued stay PT/OT consults placed and recommending [facility] facility Case management need referral to [facility] Admission and Anticipated Discharge Date Admission Date: November 28, 2020 Subjective Patient reports feeling a little bit better today. Cough is less. Still feels very weak. Still has low appetite. No bleeding from anywhere. She worked with physical therapy today and can only stand for 20 seconds. They are recommending rehab and she is agreeable. Telemetry with normal sinus rhythm and sinus bradycardia with rates 50s to 70s. Blood cultures returned positive in 1 out of 2 sets with gram-positive cocci in clusters but was negative for Staph aureus and is likely contaminant. Review of Systems Review of Systems: All systems reviewed & are unremarkable except as noted in HPI & below Physical Exam Constitutional: WD/WN, vitals as above Eyes: + anicteric sclerae Neck: trachea midline, no thyromegaly Respiratory: normal respiratory effort and + cough Auscultation: + crackles (Bibasilar); no rhonchi and no wheezes Cardiovascular: Rate/Rhythm: regular rate and regular rhythm Heart Sounds: no murmur Extremities: no edema Chest (Breasts): Chest: normal inspection of chest Gastrointestinal (Abdomen): normal bowel sounds, soft, nontender, no hepatosplenomegaly Musculoskeletal: Extremities: extremities normal to inspection; no cyanosis and no clubbing Skin: no rashes, warm and dry Neurologic: moves all extremities and awake; no focal motor deficits Psychiatric: A+Ox3, euthymic affect Results & Data Results & Data ([facility]) Vital Signs (Past 12 Hours) Vital Signs Temp Pulse Pulse Resp BP Pulse Ox 11/30/20 17:00 57 L 11/30/20 15:00 36.8 C 62 18 131/74 96 11/30/20 12:00 36.5 C 59 L 18 127/72 98 11/30/20 08:40 58 L 11/30/20 07:45 36.9 C 60 18 152/60 H 99 11/30/20 07:15 80 18 93 Laboratory Results 11/30/20 08:44 11/30/20 08:44 PG Care Time/CCT Total # of Minutes Spent Total Time Spent with Patient: Total time spent is greater than 50% in coordination of care (as documented) at patient's floor/unit and/or counseling patient: Coding Level of Care Code 02868 Subseq Hosp Care Lvl 3 Diagnoses Anemia D64.9 Anemia type: unspecified type SOB (shortness of breath) R06.02 Diarrhea R19.7 Diarrhea type: unspecified type Pleural effusion J90 Hypomagnesemia E83.42 Hypokalemia E87.6 Paroxysmal atrial fibrillation I48.0 CHF (congestive heart failure) I50.9 Heart failure chronicity: acute Heart failure type: unspecified Hypertension I10 Hypertension type: unspecified Chronic respiratory failure with hypoxia J96.11 Chronic obstructive pulmonary disease J44.9 Dyslipidemia E78.5 Esophageal dysmotility K22.4 Folic acid deficiency E53.8 Sleep apnea G47.30 Lymphoma C85.90 Lymphoma site: unspecified region Lymphoma type: non-Hodgkin Non-Hodgkin lymphoma type: unspecified type DVT prophylaxis Z29.9 (1) CHF (congestive heart failure) Heart failure chronicity: acute Heart failure type: unspecified Qualified Code(s): I50.9 - Heart failure, unspecified (2) Anemia Anemia type: unspecified type Qualified Code(s): D64.9 - Anemia, unspecified (3) Diarrhea Diarrhea type: unspecified type Qualified Code(s): R19.7 - Diarrhea, unspecified (4) Lymphoma Lymphoma site: unspecified region Lymphoma type: non-Hodgkin Non-Hodgkin lymphoma type: unspecified type Qualified Code(s): C85.90 - Non-Hodgkin lymphoma, unspecified, unspecified site (5) Hypertension Hypertension type: unspecified Qualified Code(s): I10 - Essential (primary) hypertension
[2020-11-30] MEDS ORDERED: FUROSEMIDE 40 MG in SYRINGE 0 ML IV ONE (18:15)
[2020-11-30] MEDS: CYANOCOBALAMIN 500 MCG TABLET (VITAMIN B-12) PO SCH (19:48)
[2020-11-30] MEDS: ACETAMINOPHEN 500 MG TAB PO SCH (19:49)
[2020-11-30] MEDS: ERTAPENEM SODIUM 1,000 MG in SODIUM CHLORIDE 0.9% 50 ML IV SCH (23:00)
[2020-12-01] MEDS: ACETAMINOPHEN 325 MG TAB PO PRN (06:33)
[2020-12-01] MEDS: BUDESONIDE 0.5 MG/2 ML VIAL (PULMICORT) INH SCH ×2 (07:07→19:56)
[2020-12-01 07:23] LABS: Basophils # (auto) 0.01 K/uL (0-0.2); Basophils % (auto) 0.2 %; Eosinophils # (auto) 0.13 K/uL (0-0.5); Eosinophils % (auto) 2.6 %; Hematocrit (blood only) 29.4 % (37-47); Hemoglobin 8.9 g/dL (12.0-16.0); Immature Granulocytes # (auto) 0.01 K/uL (0.00-0.02); Immature Granulocytes % (auto) 0.2 %; Lymphocytes # (auto) 1.43 K/uL (1.2-3.4); Lymphocytes % (auto) 28.8 %; Mean Corpuscular Hemoglobin 26.6 pg (25-34); Mean Corpuscular Hgb Conc 30.3 g/dL (32-36); Mean Platelet Volume 9.3 fL (7.4-10.4); Monocytes # (auto) 0.53 K/uL (0.11-0.59); Monocytes % (auto) 10.7 %; Neutrophils # (auto) 2.86 K/uL (1.4-6.5); Neutrophils % (auto) 57.5 %; Platelet Count 153 K/uL (130-400); RDW Coefficient of Variation 17.3 % (11.5-14.5); RDW Standard Deviation 55.1 fL (36.4-46.3); Red Blood Count 3.34 M/uL (4.2-5.4); White Blood Count 4.97 K/uL (4.8-10.8)
[2020-12-01 07:56] LABS: BUN Creatinine Ratio 9.8 (10-20); Calcium 8.9 mg/dl (8.5-10.1); Creatinine Clr Calc Pharmacy 38.5 ml/min; Est GFR (African American) 46.6 ml/min; Est GFR (Non-African American) 40.2 ml/min; Magnesium 1.8 mg/dl (1.8-2.4); Potassium 3.7 mmol/L (3.5-5.1)
[2020-12-01 08:01] LABS: Phosphorus 2.9 mg/dl (2.5-4.9)
[2020-12-01] MEDS: CALCIUM 600MG + VIT D 400 IU TAB PO SCH (08:28)
[2020-12-01] MEDS: MIRABEGRON ER 25 MG TAB PO SCH (08:28)
[2020-12-01] MEDS: POTASSIUM CHLORIDE 10 MEQ TABCR PO SCH (08:28)
[2020-12-01] MEDS: OMEGA-3 (PURIFIED FISH OIL) 1 GM CAP PO SCH (08:28)
[2020-12-01] MEDS: PANTOprazole 40 MG TAB PO SCH (08:28)
[2020-12-01] MEDS: amLODIPine BESYLATE 5 MG TAB PO SCH (08:29)
[2020-12-01] MEDS: APIXABAN 5 MG TABLET PO SCH ×2 (08:29→20:22)
[2020-12-01] MEDS: CHOLECALCIFEROL 1,000 UNITS 25 MCG TAB PO SCH (08:30)
[2020-12-01] MEDS: UMECLIDINIUM/VILANTEROL 62.5/25MCG 7 PUFFS/INHALER INH SCH (08:30)
[2020-12-01] MEDS: METOPROLOL TARTRATE 25 MG TAB PO SCH ×2 (08:38→20:22)
[2020-12-01] MEDS ORDERED: MAGNESIUM SULFATE / D5W 1 GM/100 ML BAG IV ONE (10:00)
[2020-12-01] MEDS ORDERED: POTASSIUM CHLORIDE / WTR 20 MEQ/100 ML PLCT IV ONE (10:00)
[2020-12-01] MEDS ORDERED: FUROSEMIDE 40 MG in SYRINGE 0 ML IV ONE (10:00)
[2020-12-01] MEDS: AMIODARONE 200 MG TAB PO SCH (15:03)
--- NOTE | 2020-12-01 19:46 | Hospitalist Progress Note ---
Date of Service December 01, 2020 Assessment & Plan (1) Anemia: Hemoglobin chronically low but has dropped lower in the last couple of months from 11 down to 8 on admission Is normocytic Was transfused 1 unit PRBCs here upon admission and hemoglobin now stable around 9 Transferrin saturation low at 10% but serum iron and ferritin are normal, B12 and folate normal although folate has been low in the past Patient reports she has not been able to take the Folic acid as it makes her sick to her stomach - LDH 244, haptoglobin pending, reticulocyte count .09 - Peripheral smear without atypia Hemoccult stool negative Follow CBC Seems to be anemia of chronic disease Also with history of non-Hodgkin's lymphoma and has not followed up with oncology in 1 year-she has an appointment scheduled for in the next 2 weeks with 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 Lasix and prednisone course as an outpatient Aspiration pneumonia was suspected on admission and she was started on ertapenem and had a video swallow study here which was normal but showed esophageal dysmotility Chest CT shows small bilateral pleural effusions slightly increased in size since 11/18/2020 with associated subpleural opacities favoring atelectasis, mild interstitial pulmonary edema, and emphysema. Now significantly improved with IV diuresis proBNP is returning towards normal -Continue ertapenem for suspected pneumonia -Continue to diurese with IV Lasix once daily today -Follow volume status-weight is down and is net negative on I's and O's -Continue outpatient inhaler therapy Continue supplemental O2 to keep pulse ox greater than 90% Follows with pulmonology PA as an outpatient (3) Diarrhea: Chronic, not really having much here at all Last colonoscopy 2016 - chronic in nature, consider cholestyramine - This is assisting with her magnesium depletion as well - Consider PPI need-May discontinue as this could worsen diarrhea (4) Pleural effusion: Chronic, but larger bilaterally than previously Repeat chest x-ray on 11/30 with slight improvement on the left with less atelectasis - Continue Lasix as above Follow chest x-ray (5) Hypomagnesemia: Quite low on admission at 1.3 Was replaced with IV magnesium daily Now only mildly low 1.8-give another 1 g magnesium sulfate to keep magnesium above 2 - Consider discontinuing PPI or change to H2 (6) Hypokalemia: Finally improving and is likely secondary to loop diuretic use Replace with IV potassium chloride 20 mEq today Replace magnesium as well Follow BMP in the morning (7) Paroxysmal atrial fibrillation: Controlled and remains in NSR here on telemetry - continue her amiodarone -Continue Eliquis 5 mg p.o. twice daily Continue Toprol tartrate 12.5 mg p.o. twice daily (8) CHF (congestive heart failure): With acute on chronic diastolic CHF BNP slightly elevated from her previous at 2400 now trended back down to thousand With increasing size of pleural effusions and significant cough, ongoing hypoxia Giving IV Lasix as above-with significant improvement Weight is down, is and is net negative Clinically improving Chest x-ray on 11/30 improved aeration Last echocardiogram 6 months ago with preserved EF -We will dose IV Lasix daily as needed (9) Hypertension: Blood pressure controlled Continue amlodipine, Lasix, metoprolol tartrate (10) Chronic respiratory failure with hypoxia: On 3 L nasal cannula continuously at home-continues on the same amount here (11) Chronic obstructive pulmonary disease: Continue home inhalers No active wheezing but is coughing likely due to pleural effusions (12) Dyslipidemia: Continue fish oil (13) Esophageal dysmotility: Noted on video swallow here No evidence of aspiration Speech therapy following Slippery diet recommended (14) Folic acid deficiency: Previously low at 5 and was replaced and is now up to 9 She is unable to tolerate p.o. folic acid at home as it makes her nauseated (15) Sleep apnea: Was supposed to have sleep study but I do not see evidence that was ever done Continue supplemental O2 (16) Lymphoma: History of non-Hodgkin's lymphoma stage Ia in the left axilla, treated with chemotherapy and radiation Has upcoming follow-up appoint with oncology in 2 weeks With anemia, need to follow-up with hematology (17) DVT prophylaxis: Eliquis Disposition-continued stay PT/OT consults placed and recommending retirement facility, however patient is now feeling much stronger since her initial physical therapy evaluation. She wishes to be reevaluated daily to see if it is now safe for her to return home with home health Case management is involved Admission and Anticipated Discharge Date Admission Date: November 28, 2020 Subjective Patient feeling definitely better today, still with cough with deep breath but overall improved, less shortness of breath. She is out of bed to the chair and feeling much stronger today. She is eating and drinking, feels her appetite is slightly improved. Remains afebrile. Telemetry with normal sinus rhythm, sinus bradycardia, first-degree AV block, rates in the 50s to 60s Review of Systems Review of Systems: All systems reviewed & are unremarkable except as noted in HPI & below Physical Exam Constitutional: WD/WN, vitals as above Eyes: + anicteric sclerae Neck: trachea midline, no thyromegaly Respiratory: normal respiratory effort and + cough Auscultation: + crackles (Bibasilar); no rhonchi and no wheezes Cardiovascular: Rate/Rhythm: regular rate and regular rhythm Heart Sounds: no murmur Extremities: no edema Chest (Breasts): Chest: normal inspection of chest Gastrointestinal (Abdomen): normal bowel sounds, soft, nontender, no hepatosplenomegaly Musculoskeletal: Extremities: extremities normal to inspection; no cyanosis and no clubbing Skin: no rashes, warm and dry Neurologic: moves all extremities and awake; no focal motor deficits Psychiatric: A+Ox3, euthymic affect Results & Data Results & Data ([facility]) Vital Signs (Past 12 Hours) Vital Signs Temp Pulse Pulse Pulse Pulse Resp BP 12/01/20 19:11 36.7 C 79 20 117/63 12/01/20 15:08 12/01/20 15:00 36.8 C 61 60 18 126/85 12/01/20 11:00 36.7 C 95 H 18 129/72 12/01/20 08:32 57 L 130/70 12/01/20 08:00 36.6 C 52 L 16 144/69 H 12/01/20 07:55 58 L Pulse Ox Pulse Ox 12/01/20 19:11 91 12/01/20 15:08 98 12/01/20 15:00 96 12/01/20 11:00 12/01/20 08:32 12/01/20 08:00 98 12/01/20 07:55 Laboratory Results 12/01/20 07:03 12/01/20 07:03 Blood cultures with coagulase-negative Staphylococcus, not lugdunensis PG Care Time/CCT Total # of Minutes Spent Total Time Spent with Patient: Total time spent is greater than 50% in coordination of care (as documented) at patient's floor/unit and/or counseling patient: Coding Level of Care Code 37699 Subseq Hosp Care Lvl 3 Diagnoses Anemia D64.9 Anemia type: unspecified type SOB (shortness of breath) R06.02 Diarrhea R19.7 Diarrhea type: unspecified type Pleural effusion J90 Hypomagnesemia E83.42 Hypokalemia E87.6 Paroxysmal atrial fibrillation I48.0 CHF (congestive heart failure) I50.9 Heart failure chronicity: acute Heart failure type: unspecified Hypertension I10 Hypertension type: unspecified Chronic respiratory failure with hypoxia J96.11 Chronic obstructive pulmonary disease J44.9 Dyslipidemia E78.5 Esophageal dysmotility K22.4 Folic acid deficiency E53.8 Sleep apnea G47.30 Lymphoma C85.90 Lymphoma site: unspecified region Lymphoma type: non-Hodgkin Non-Hodgkin lymphoma type: unspecified type DVT prophylaxis Z29.9 (1) CHF (congestive heart failure) Heart failure chronicity: acute Heart failure type: unspecified Qualified Code(s): I50.9 - Heart failure, unspecified (2) Anemia Anemia type: unspecified type Qualified Code(s): D64.9 - Anemia, unspecified (3) Diarrhea Diarrhea type: unspecified type Qualified Code(s): R19.7 - Diarrhea, unspecified (4) Lymphoma Lymphoma site: unspecified region Lymphoma type: non-Hodgkin Non-Hodgkin lymphoma type: unspecified type Qualified Code(s): C85.90 - Non-Hodgkin lymphoma, unspecified, unspecified site (5) Hypertension Hypertension type: unspecified Qualified Code(s): I10 - Essential (primary) hypertension
[2020-12-01] MEDS: ACETAMINOPHEN 500 MG TAB PO SCH (20:22)
[2020-12-01] MEDS: CYANOCOBALAMIN 500 MCG TABLET (VITAMIN B-12) PO SCH (20:22)
[2020-12-01] MEDS: ERTAPENEM SODIUM 1,000 MG in SODIUM CHLORIDE 0.9% 50 ML IV SCH (23:50)
[2020-12-02] MEDS: ACETAMINOPHEN 325 MG TAB PO PRN (06:12)
[2020-12-02] MEDS: BUDESONIDE 0.5 MG/2 ML VIAL (PULMICORT) INH SCH ×2 (07:07→19:35)
[2020-12-02 07:13] LABS: Basophils # (auto) 0.02 K/uL (0-0.2); Basophils % (auto) 0.5 %; Eosinophils # (auto) 0.16 K/uL (0-0.5); Eosinophils % (auto) 3.9 %; Hematocrit (blood only) 29.1 % (37-47); Hemoglobin 8.7 g/dL (12.0-16.0); Immature Granulocytes # (auto) 0.01 K/uL (0.00-0.02); Immature Granulocytes % (auto) 0.2 %; Lymphocytes # (auto) 1.21 K/uL (1.2-3.4); Lymphocytes % (auto) 29.8 %; Mean Corpuscular Hgb Conc 29.9 g/dL (32-36); Mean Corpuscular Volume 90.4 fL (80-100); Mean Platelet Volume 9.5 fL (7.4-10.4); Monocytes # (auto) 0.45 K/uL (0.11-0.59); Monocytes % (auto) 11.1 %; Neutrophils # (auto) 2.21 K/uL (1.4-6.5); Neutrophils % (auto) 54.5 %; Platelet Count 173 K/uL (130-400); RDW Coefficient of Variation 17.4 % (11.5-14.5); RDW Standard Deviation 57.5 fL (36.4-46.3); Red Blood Count 3.22 M/uL (4.2-5.4); White Blood Count 4.06 K/uL (4.8-10.8)
[2020-12-02 07:44] LABS: BUN Creatinine Ratio 11.5 (10-20); Calcium 8.7 mg/dl (8.5-10.1); Creatinine Clr Calc Pharmacy 39.4 ml/min; Est GFR (Non-African American) 41.4 ml/min; Magnesium 1.9 mg/dl (1.8-2.4); Potassium 3.9 mmol/L (3.5-5.1)
[2020-12-02] MEDS: POTASSIUM CHLORIDE 10 MEQ TABCR PO SCH (08:30)
[2020-12-02] MEDS: OMEGA-3 (PURIFIED FISH OIL) 1 GM CAP PO SCH (08:30)
[2020-12-02] MEDS: METOPROLOL TARTRATE 25 MG TAB PO SCH ×2 (08:30→20:07)
[2020-12-02] MEDS: PANTOprazole 40 MG TAB PO SCH (08:30)
[2020-12-02] MEDS: MIRABEGRON ER 25 MG TAB PO SCH (08:30)
[2020-12-02] MEDS: CHOLECALCIFEROL 1,000 UNITS 25 MCG TAB PO SCH (08:31)
[2020-12-02] MEDS: CALCIUM 600MG + VIT D 400 IU TAB PO SCH (08:32)
[2020-12-02] MEDS: amLODIPine BESYLATE 5 MG TAB PO SCH (08:32)
[2020-12-02] MEDS: APIXABAN 5 MG TABLET PO SCH ×2 (08:32→20:07)
[2020-12-02] MEDS: UMECLIDINIUM/VILANTEROL 62.5/25MCG 7 PUFFS/INHALER INH SCH (08:33)
[2020-12-02] MEDS ORDERED: MAGNESIUM SULFATE / D5W 1 GM/100 ML BAG IV ONE (09:30)
[2020-12-02] MEDS ORDERED: FUROSEMIDE 40 MG in SYRINGE 0 ML IV ONE (09:30)
[2020-12-02] MEDS ORDERED: POTASSIUM CHLORIDE / WTR 20 MEQ/100 ML PLCT IV ONE (09:30)
[2020-12-02] MEDS: HEPARIN 100 UNIT/ML 5ML FLUSH FLUSH PRN (13:08)
--- NOTE | 2020-12-02 15:05 | Hospitalist Progress Note ---
Date of Service December 02, 2020 Assessment & Plan (1) Anemia: Hemoglobin chronically low but has dropped lower in the last couple of months from 11 down to 8 on admission Is normocytic Was transfused 1 unit PRBCs here upon admission and hemoglobin now stable around 8.7-9 Transferrin saturation low at 10% but serum iron and ferritin are normal, B12 and folate normal although folate has been low in the past Patient reports she has not been able to take the Folic acid as it makes her sick to her stomach - LDH 244, haptoglobin pending, reticulocyte count .09 - Peripheral smear without atypia Hemoccult stool negative Follow CBC Seems to be anemia of chronic disease Also with history of non-Hodgkin's lymphoma and has not followed up with oncology in 1 year-she has an appointment scheduled for in the next 2 weeks 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 Lasix and prednisone course as an outpatient Aspiration pneumonia was suspected on admission and she was started on ertapenem and had a video swallow study here which was normal but showed esophageal dysmotility Chest CT shows small bilateral pleural effusions slightly increased in size since 11/18/2020 with associated subpleural opacities favoring atelectasis, mild interstitial pulmonary edema, and emphysema. Now significantly improved with IV diuresis proBNP is returning towards normal Remains afebrile and cough is much improved -Continue ertapenem for suspected pneumonia, but can likely discontinue after tomorrow with a total 5 day course -Continue to diurese with IV Lasix once daily in the morning -Follow volume status-weight is down and is net negative on I's and O's -Continue outpatient inhaler therapy Continue supplemental O2 to keep pulse ox greater than 90% Follows with pulmonology PA as an outpatient (3) Diarrhea: Chronic, not really having much here at all Last colonoscopy 2017 - chronic in nature, consider cholestyramine - This is assisting with her magnesium depletion as well - Consider PPI need-May discontinue as this could worsen diarrhea (4) Pleural effusion: Chronic, but larger bilaterally than previously Repeat chest x-ray on 11/30 with slight improvement on the left with less atelectasis - Continue Lasix as above Follow chest x-ray in the AM (5) Hypomagnesemia: Quite low on admission at 1.3 Was replaced with IV magnesium daily Now only mildly low 1.9-give another 1 g magnesium sulfate to keep magnesium above 2 - Consider discontinuing PPI or change to H2 (6) Hypokalemia: Finally improving and is likely secondary to loop diuretic use Replace with IV potassium chloride 20 mEq today Replace magnesium as well Follow BMP in the morning (7) Paroxysmal atrial fibrillation: Controlled and remains in NSR here on telemetry - continue her amiodarone -Continue Eliquis 5 mg p.o. twice daily Continue Toprol tartrate 12.5 mg p.o. twice daily (8) CHF (congestive heart failure): With acute on chronic diastolic CHF BNP slightly elevated from her previous at 2400 now trended back down to thousand With increasing size of pleural effusions and significant cough, ongoing hypoxia Giving IV Lasix as above-with significant improvement Weight is down, is and is net negative Clinically improving Chest x-ray on 11/30 improved aeration; repeat CXR in AM Last echocardiogram 6 months ago with preserved EF -We will dose IV Lasix daily as needed (9) Hypertension: Blood pressure controlled Continue amlodipine, Lasix, metoprolol tartrate (10) Chronic respiratory failure with hypoxia: On 3 L nasal cannula continuously at home-continues on the same amount here (11) Chronic obstructive pulmonary disease: Continue home inhalers No active wheezing but is coughing likely due to pleural effusions (12) Dyslipidemia: Continue fish oil (13) Esophageal dysmotility: Noted on video swallow here No evidence of aspiration Speech therapy following Slippery diet recommended (14) Folic acid deficiency: Previously low at 5 and was replaced and is now up to 9 She is unable to tolerate p.o. folic acid at home as it makes her nauseated (15) Sleep apnea: Was supposed to have sleep study but I do not see evidence that was ever done Continue supplemental O2 (16) Lymphoma: History of non-Hodgkin's lymphoma stage Ia in the left axilla, treated with chemotherapy and radiation Has upcoming follow-up appoint with oncology in 2 weeks With anemia, need to follow-up with hematology (17) DVT prophylaxis: Eliquis Disposition-continued stay PT/OT consults placed and recommending [facility], however patient is now feeling much stronger since her initial physical therapy evaluation. She wishes to be reevaluated daily to see if it is now safe for her to return home with home health. Today, she walked 225 feet with PT. She can likely go home safely, but is home alone. Discussed with family about getting private caregivers and they said pt had in the past but ended up asking them not to come back-will encourage her to accept help in the future Possible dc to home tomorrow Case management is involved Admission and Anticipated Discharge Date Admission Date: November 28, 2020 Subjective Patient very emotional when I saw her today, crying as she just found out that her brother was found unresponsive and is now on life support at a hospital in [place]. She and her brother were very close and she is visibly upset by this news. She does report that her cough and shortness of breath are overall significantly improved. She is feeling stronger and really would not want to go to a rehab facility at this point. She denies sputum production, no chest pain, no nausea or vomiting. Her appetite is also much improved. She is moving her bowels. Telemetry with sinus bradycardia and sinus rhythm PACs, rates in the 50s to 60s. Review of Systems Review of Systems: All systems reviewed & are unremarkable except as noted in HPI & below Physical Exam Constitutional: WD/WN, vitals as above Eyes: + anicteric sclerae Neck: trachea midline, no thyromegaly Respiratory: normal respiratory effort and + cough Auscultation: + crackles (Bibasilar); no rhonchi and no wheezes Cardiovascular: Rate/Rhythm: regular rate and regular rhythm Heart Sounds: no murmur Extremities: no edema Chest (Breasts): Chest: normal inspection of chest Gastrointestinal (Abdomen): normal bowel sounds, soft, nontender, no hepatosplenomegaly Musculoskeletal: Extremities: extremities normal to inspection; no cyanosis a nd no clubbing Skin: no rashes, warm and dry Neurologic: moves all extremities and awake; no focal motor deficits Psychiatric: Orientation: alert and oriented x 3 Affect: + tearful affect Results & Data Results & Data ([facility]) Vital Signs (Past 12 Hours) Vital Signs Temp Pulse Pulse Pulse Resp BP Pulse Ox 12/02/20 12:14 36.7 C 57 L 19 126/56 L 100 12/02/20 08:00 55 L 12/02/20 07:30 36.6 C 53 L 19 130/73 97 12/02/20 07:07 80 20 95 12/02/20 03:56 36.8 C 59 L 18 114/65 100 Laboratory Results 12/02/20 06:28 12/02/20 06:28 PG Care Time/CCT Total # of Minutes Spent Total Time Spent with Patient: Total time spent is greater than 50% in coordination of care (as documented) at patient's floor/unit and/or counseling patient: Coding Level of Care Code 68598 Subseq Hosp Care Lvl 3 Diagnoses Anemia D64.9 Anemia type: unspecified type SOB (shortness of breath) R06.02 Diarrhea R19.7 Diarrhea type: unspecified type Pleural effusion J90 Hypomagnesemia E83.42 Hypokalemia E87.6 Paroxysmal atrial fibrillation I48.0 CHF (congestive heart failure) I50.9 Heart failure chronicity: acute Heart failure type: unspecified Hypertension I10 Hypertension type: unspecified Chronic respiratory failure with hypoxia J96.11 Chronic obstructive pulmonary disease J44.9 Dyslipidemia E78.5 Esophageal dysmotility K22.4 Folic acid deficiency E53.8 Sleep apnea G47.30 Lymphoma C85.90 Lymphoma site: unspecified region Lymphoma type: non-Hodgkin Non-Hodgkin lymphoma type: unspecified type DVT prophylaxis Z29.9 (1) CHF (congestive heart failure) Heart failure chronicity: acute Heart failure type: unspecified Qualified Code(s): I50.9 - Heart failure, unspecified (2) Anemia Anemia type: unspecified type Qualified Code(s): D64.9 - Anemia, unspecified (3) Diarrhea Diarrhea type: unspecified type Qualified Code(s): R19.7 - Diarrhea, u nspecified (4) Lymphoma Lymphoma site: unspecified region Lymphoma type: non-Hodgkin Non-Hodgkin lymphoma type: unspecified type Qualified Code(s): C85.90 - Non-Hodgkin lymp jackelyn, unspecified, unspecified site (5) Hypertension Hypertension type: unspecified Qualified Code(s): I10 - Essential (primary) hypertension
[2020-12-02] MEDS: AMIODARONE 200 MG TAB PO SCH (15:44)
[2020-12-02] MEDS: CYANOCOBALAMIN 500 MCG TABLET (VITAMIN B-12) PO SCH (20:05)
[2020-12-02] MEDS: ACETAMINOPHEN 500 MG TAB PO SCH (20:06)
[2020-12-02] MEDS: ERTAPENEM SODIUM 1,000 MG in SODIUM CHLORIDE 0.9% 50 ML IV SCH (23:13)
[2020-12-03 06:16] LABS: Basophils # (auto) 0.02 K/uL (0-0.2); Basophils % (auto) 0.4 %; Eosinophils # (auto) 0.14 K/uL (0-0.5); Eosinophils % (auto) 3.1 %; Hematocrit (blood only) 29.5 % (37-47); Hemoglobin 8.8 g/dL (12.0-16.0); Immature Granulocytes # (auto) 0.01 K/uL (0.00-0.02); Immature Granulocytes % (auto) 0.2 %; Lymphocytes # (auto) 1.49 K/uL (1.2-3.4); Lymphocytes % (auto) 33.5 %; Mean Corpuscular Hemoglobin 26.6 pg (25-34); Mean Corpuscular Hgb Conc 29.8 g/dL (32-36); Mean Corpuscular Volume 89.1 fL (80-100); Mean Platelet Volume 9.2 fL (7.4-10.4); Monocytes # (auto) 0.69 K/uL (0.11-0.59); Monocytes % (auto) 15.5 %; Neutrophils % (auto) 47.3 %; Platelet Count 179 K/uL (130-400); RDW Coefficient of Variation 17.2 % (11.5-14.5); RDW Standard Deviation 56.3 fL (36.4-46.3); Red Blood Count 3.31 M/uL (4.2-5.4); White Blood Count 4.45 K/uL (4.8-10.8)
[2020-12-03 06:47] LABS: BUN Creatinine Ratio 11.3 (10-20); Calcium 8.8 mg/dl (8.5-10.1); Creatinine Clr Calc Pharmacy 38.4 ml/min; Est GFR (African American) 46.2 ml/min; Est GFR (Non-African American) 39.8 ml/min; Magnesium 2.3 mg/dl (1.8-2.4); Potassium 4.4 mmol/L (3.5-5.1)
[2020-12-03] MEDS: BUDESONIDE 0.5 MG/2 ML VIAL (PULMICORT) INH SCH (07:12)
[2020-12-03] MEDS: ACETAMINOPHEN 325 MG TAB PO PRN (07:44)
[2020-12-03] MEDS ORDERED: FUROSEMIDE 40 MG in SYRINGE 0 ML IV SCH (09:00)
[2020-12-03] MEDS: amLODIPine BESYLATE 5 MG TAB PO SCH (09:33)
[2020-12-03] MEDS: CALCIUM 600MG + VIT D 400 IU TAB PO SCH (09:34)
[2020-12-03] MEDS: METOPROLOL TARTRATE 25 MG TAB PO SCH (09:34)
[2020-12-03] MEDS: OMEGA-3 (PURIFIED FISH OIL) 1 GM CAP PO SCH (09:34)
[2020-12-03] MEDS: CHOLECALCIFEROL 1,000 UNITS 25 MCG TAB PO SCH (09:34)
[2020-12-03] MEDS: APIXABAN 5 MG TABLET PO SCH (09:34)
[2020-12-03] MEDS: MIRABEGRON ER 25 MG TAB PO SCH (09:35)
[2020-12-03] MEDS: POTASSIUM CHLORIDE 10 MEQ TABCR PO SCH (09:36)
[2020-12-03] MEDS: PANTOprazole 40 MG TAB PO SCH (09:36)
[2020-12-03] MEDS: UMECLIDINIUM/VILANTEROL 62.5/25MCG 7 PUFFS/INHALER INH SCH (09:36)
[2020-12-03] MEDS ORDERED: IRON SUCROSE 300 MG in SODIUM CHLORIDE 0.9% 250 ML IV ONE (10:00)
--- NOTE | 2020-12-03 10:53 | XRay Report ---
XR chest 1V portable CLINICAL HISTORY: f/u pleural effusion COMPARISON STUDY: November 30, 2020 FINDINGS: No definite pneumothorax seen however evaluation is limited because bilateral lung apices are obscure d by patient's chin.. Stable small left pleural effusion which is unchanged since prior. Hazy left retrocardiac opacity is again seen which could represent atelectasis or infiltrate. Cardiomediastinal silhouette is unchanged since prior. Right hilum is prominent. Aorta is calcified No significant pulmonary vascular congestion.. Osseous structures: Degenerative changes of the spine and bilateral shoulders. Orthopedic hardware i s again seen projecting to the anatomical region of the thoracolumbar spine. Stable position of left-sided subclavian central venous line. IMPRESSION: 1. Stable small left pleural effusion. Hazy opacity within left retrocardiac region could represent atelectasis or infiltrate. 2. Prominent right hilum. ACT 112: Negative or not required by law. The above report was generated using voice recognition software. It may contain grammatical, syntax o r spelling errors. Electronically signed by: Brandee Peguero DO 12/03/2020 10:52 AM
--- NOTE | 2020-12-03 13:14 | Discharge Summary ---
Date of Service December 03, 2020 Admission HPI Per Admitting Provider 79 YOF with past medical history of chronic dyspnea, diarrhea, hypomag, hypokalemia, afib on Eliquis, hld, non-Hodgkin lymphoma, breast cancer, vitamin d deficiency, HFrEF, GERD, and multiple allergies/drug intolerances. The patient is chronically dyspneic and followed by cardiology and pulmonary. Her afib is managed with amiodarone and metoprolol, and was seen by her facilities mechanical design engineer 2 weeks ago and had a CT scan of the chest done on [id number] for amiodarone induced lung injury. She was also recently started on oral Roxanol for her cough and rib pain secondary to intolerance to codeine. The patient comes in today with increasing in dyspnea and having to increase her oxygen at home. She states that she can only go a few steps before she needs to sit down and increase her oxygen. She is anemic on presentation at 8.1 wither normal ~9- 11 and elevated RDW, platelet count is normal, She denies any blood in her stool, hematemesis, or dark tarry stools. She has had decreased appetite over the past 7 days with only eating a bagel a day, and continues to deal with her chronic diarrhea which she reports was worse this week as well. Her cough remains at her baseline per the patient, however her son at the bedside says that after while eating she has coughing episodes, as well as nursing reports her coughing after swallowing her pill and water. Patient will be admitted, type and cross for PRBC, LDH and iron studies repeated, however have all been normal in the recent 3 months. She will be transfused for symptomatic anemia as well as started on broad spectrum antibiotic for possible aspiration pneumonia. Principal Diagnosis Acute on chronic diastolic CHF, Symptomatic anemia, Suspected aspiration pneumonia Discharge Exam Constitutional WD/WN, vitals as above Eyes + anicteric sclerae Neck trachea midline, no thyromegaly Respiratory normal respiratory effort Auscultation: + crackles (Bibasilar,mild and improved from previous); no rhonchi and no wheezes Cardiovascular Rate/Rhythm: regular rate and regular rhythm Heart Sounds: no murmur Extremities: no edema Chest (Breasts) Chest: normal inspection of chest Gastrointestinal (Abdomen) normal bowel sounds, soft, nontender, no hepatosplenomegaly Musculoskeletal Extremities: extremities normal to inspection; no cyanosis and no clubbing Skin no rashes, warm and dry Neurologic moves all extremities and awake; no focal motor deficits Psychiatric A+Ox3, euthymic affect Discharge Data Allergies Allergy/AdvReac Type Severity Reaction Status Date / Time dexamethasone Allergy Severe Shortness Verified 11/11/20 10:35 of Breath, throat constriction Sulfa (Sulfonamide Allergy Severe HIVES Verified 11/11/20 10:35 Antibiotics) adhesive tape Allergy Intermediate redness, Verified 11/11/20 10:35 irritation, peels skin off amoxicillin Allergy Unknown hives Verified 11/11/20 10:35 azithromycin Allergy Unknown Hives Verified 11/11/20 10:35 [From Zithromax Z-Siddhartha] clavulanic acid Allergy Unknown hives Verified 11/11/20 10:35 meperidine Allergy Unknown HIVES Verified 11/11/20 10:35 Penicillins Allergy Unknown hives Verified 11/11/20 10:35 cephalexin [From Keflex] Allergy Verified 11/11/20 10:35 ciprofloxacin [From Cipro] AdvReac Severe Vomiting Verified 11/11/20 10:35 codeine AdvReac Unknown NAUSEA AND Verified 11/11/20 10:35 VOMITING ketorolac AdvReac Unknown 'increased Verified 11/11/20 10:35 bleeding' Consultations 11/28/20 19:24 ED Decision to Admit Stat Ordered Studies 11/28/20 19:46 CT chest diagnostic wo con Stat 11/29/20 13:00 FL video swallow Routine 12/03/20 12/03/20 Range/Units 05:42 05:42 WBC 4.45 L (4.8-10.8) K/uL RBC 3.31 L (4.2-5.4) M/uL Hgb 8.8 L (12.0-16.0) g/dL Hct 29.5 L (37-47) % MCV 89.1 (80-100) fL MCH 26.6 (25-34) pg MCHC 29.8 L (32-36) g/dL RDW Std Deviation 56.3 H (36.4-46.3) fL RDW Coeff of Zackary 17.2 H (11.5-14.5) % Plt Count 179 (130-400) K/uL MPV 9.2 (7.4-10.4) fL Immature Gran % (Auto) 0.2 % Neut % (Auto) 47.3 % Lymph % (Auto) 33.5 % Sully % (Auto) 15.5 % Eos % (Auto) 3.1 % Baso % (Auto) 0.4 % Neut # (Auto) 2.10 (1.4-6.5) K/uL Lymph # (Auto) 1.49 (1.2-3.4) K/uL Sully # (Auto) 0.69 H (0.11-0.59) K/uL Eos # (Auto) 0.14 (0-0.5) K/uL Baso # (Auto) 0.02 (0-0.2) K/uL Immature Gran # (Auto) 0.01 (0.00-0.02) K/uL Sodium 137 (136-145) mmol/L Potassium 4.4 (3.5-5.1) mmol/L Chloride 103 (98-107) mmol/L Carbon Dioxide 30 (21-32) mmol/L Anion Gap 4.0 (3-11) BUN 14 (7-18) mg/dl Creatinine 1.27 H (0.6-1.2) mg/dl Est Cr Clr Drug Dosing 38.4 ml/min Est GFR ( Amer) 46.2 ml/min Est GFR (Non-Af Amer) 39.8 ml/min BUN/Creatinine Ratio 11.3 (10-20) Glucose 89 (70-99) mg/dl Calcium 8.8 (8.5-10.1) mg/dl Magnesium 2.3 (1.8-2.4) mg/dl Hospital Course (1) Anemia: Hemoglobin chronically low but has dropped lower in the last couple of months from 11 down to 8 on admission Is normocytic Was transfused 1 unit PRBCs here upon admission and hemoglobin now stable around 8.7-9 Transferrin saturation low at 10% but serum iron and ferritin are normal, B12 and folate normal although folate has been low in the past Gave Venofer 300mg IV x 1 during admission Patient reports she has not been able to take the Folic acid as it makes her sick to her stomach - LDH 244, haptoglobin normal, reticulocyte count .09 - Peripheral smear without atypia Hemoccult stool negative Follow CBC with Oncology in 1 week Seems to be anemia of chronic disease Also with history of non-Hodgkin's lymphoma and has not followed up with oncology in 1 year-she has an appointment scheduled for in the next 2 weeks with the oncology [employer]-we will defer any further work-up on anemia to hematology (2) SOB (shortness of breath): Presents with worsening shortness of breath and cough worsening in the last couple of weeks Has a history of CHF, COPD Has been tried on escalating doses of p.o. Lasix and prednisone course as an outpatient Aspiration pneumonia was suspected on admission and she was started on ertapenem and had a video swallow study here which was negative for aspiration but showed esophageal dysmotility Chest CT shows small bilateral pleural effusions slightly increased in size since 11/18/2020 with associated subpleural opacities favoring atelectasis, mild interstitial pulmonary edema, and emphysema. Now significantly improved with IV diuresis proBNP is returning towards normal Remains afebrile and cough is much improved -completed 5 day course of ertapenem for suspected pneumonia -diuresed with IV Lasix once daily in the morning and will dc to home on lasix 60mg po once daily -daily weights, low sodium diet, and fluid restrict 1800mL upon discharge -Continue outpatient inhaler therapy Continue supplemental O2 to keep pulse ox greater than 90% Follows with pulmonology [place] as an outpatient (3) Diarrhea: Chronic, not really having much here at all Last colonoscopy 2016 - chronic in nature, consider cholestyramine - This is assisting with her magnesium depletion as well - Consider PPI need-May discontinue as this could worsen diarrhea (4) Pleural effusion: Chronic, but larger bilaterally than previously Repeat chest x-ray on 11/30 with slight improvement on the left with less atelectasis CXR 12/03 stable - Continue Lasix as above Follow chest x-ray as outpt with PULM (5) Hypomagnesemia: Quite low on admission at 1.3, could be secondary to diuretics and diarrhea Was replaced with IV magnesium daily for several days - Consider discontinuing PPI or change to H2 as outpt and controlling diarrhea (6) Hypokalemia: Finally improving and is likely secondary to loop diuretic use Replaced with IV potassium chloride on multiple occasions Replaced magnesium as well Continue daily KCl 10 meq po on dc (7) Paroxysmal atrial fibrillation: Controlled and remains in NSR here on telemetry throughout her stay - continue her amiodarone -Continue Eliquis 5 mg p.o. twice daily Continue metoprolol tartrate 12.5 mg p.o. twice daily (8) CHF (congestive heart failure): With acute on chronic diastolic CHF BNP slightly elevated from her previous at 2400 now trended back down to thousan d With increasing size of pleural effusions and significant cough, ongoing hypoxia Giving IV Lasix as above-with significant improvement Weight is down, is and is net negative 2.5L fluid Clinically improving Chest x-ray on 11/30 improved aeration; repeat CXR stable on 12/03 Last echocardiogram 6 months ago with preserved EF continue lasix 60mg po daily on discharge (9) Hypertension: Blood pressure controlled Continue amlodipine, Lasix, metoprolol tartrate (10) Chronic respiratory failure with hypoxia: On 3 L nasal cannula continuously at home-continues on the same amount here and actually weaned to 2LNC on day of discharge (11) Chronic obstructive pulmonary disease: Continue home inhalers No active wheezing but is coughing likely due to pleural effusions (12) Dyslipidemia: Continue fish oil (13) Esophageal dysmotility: Noted on video swallow here No evidence of aspiration Speech therapy following Slippery diet recommended (14) Folic acid deficiency: Previously low at 5 and was replaced and is now up to 9 She is unable to tolerate p.o. folic acid at home as it makes her nauseated (15) Sleep apnea: Was supposed to have sleep study but I do not see evidence that was ever done Continue supplemental O2 (16) Lymphoma: History of non-Hodgkin's lymphoma stage Ia in the left axilla, treated with chemotherapy and radiation Has upcoming follow-up appoint with oncology in 2 weeks With anemia, need to follow-up with hematology (17) DVT prophylaxis: Arvin Disposition-stable for dc to home with home health-pt declined rehab placement and was much stronger on subsequent days Care discussed with her son on the phone at length on 12/02 Total Time Total Time Spent Total Time Spent (In Minutes): 35 min Total Time Includes: Examination of the Patient, Discharge Planning and Medication Reconciliation Discharge Plan Discharge Items Patient Disposition: Home - Home Health Services Reason For Visit: ANEMIA, SHORTNESS OF BREATH Discharge Diagnosis: Acute on chronic diastolic CHF, Aspiration pneumonia, Symptomatic anemia Condition on Discharge: Fair Activity: As commented below Lifting: None Bathing: No limitations Exercise/Sports: Gradually increase as tolerated Exercise Comment: with home PT/OT Weightbearing: Full weightbearing Non-emergency contact: Primary Care Provider Call non-emergency contact if: you have any medication questions and your symptoms worsen Follow-up/Referrals: Li Miner MD [Primary Care Provider] - (Follow up in 1-2 weeks.) Diet: Low Sodium (2gm) Fluids: 1800ml (7 cups) Diet Comment: "Slippery" diet Addtl Attending Provider Instructions: You were admitted for shortness of breath and cough which was caused from excess fluid around the lung. You were given lasix through the IV and had a lot of fluid removed. You were also treated with IV antibiotics in case of pneumonia, but this was considered less likely. You completed a course of antibiotics in the hospital and do not need any more. Your lasix dose will be increased to 60mg once daily. Please keep your follow up appointment with Stefanie Fernando of Oncology for your lymphoma and cancer follow up. She can further explore causes of your anemia. You were given a blood transfusion as well as IV iron infusion while you were here. Again, I am very sorry for the loss of your brother and will keep you and your family in my thoughts and prayers. -Dr. Deisy Davalos Call your Primary Care doctor if any of the following symptoms or problems start or get worse: * Shortness of breath or difficulty breathing * Wake up at night short of breath * Chest pain * Cough * Swelling of your hands, feet, or legs * More fatigued or tired with your normal activity * Palpitations - sudden fast heart beats WEIGHT * Weigh yourself every morning after using the bathroom. * Use the same scale. * Wear the same amount of clothing. * Write your weight down on a chart. * Call your Primary Care doctor if you gain more than 2-3 pounds in 1-2 days. MEDICATIONS * Use this discharge instruction sheet for medication instructions. * Take your medications at the time your doctor ordered. * Do not skip a dose of your medicines. * If you miss a dose of medicine, take it as soon as possible, but DO NOT DOUBLE A DOSE. * Read your medicine information when you get home. * Know all of the side effects of your medicine. If in doubt, ask your pharmac ist * Call your Primary Care doctor's office if you have any side effects. * Be sure all of your doctors know what medicine and herbs you take (including cold, flu, and herbal medicine). Take the following with you to your follow-up doctor appointments: * Weight Chart * Medication List * List of questions Do not drink excessive alcohol, beer or wine. Pending Studies at Discharge: No Stand-Alone Forms: [facility] Medications and DC Order Prescriptions: New furosemide 40 mg Tablet 60 mg PO QAM Qty: 45 RF: 0 Continued amiodarone 200 mg tablet 200 mg PO QPM Qty: 90 RF: 3 Eliquis 5 mg tablet 5 mg PO BID Qty: 180 RF: 3 ipratropium-albuterol 0.5 mg-3 mg(2.5 mg base)/3 mL solution for nebulization 3 ml inhalation Q4H PRN (Reason: COPD) Qty: 180 RF: 5 Stiolto Respimat 2.5-2.5 mcg/actuation mist 2 puff inhalation DAILY Qty: 4 RF: 5 metoprolol tartrate 25 mg tablet 12.5 mg PO BID Qty: 90 RF: 3 amlodipine [Norvasc] 2.5 mg tablet 2.5 mg PO QAM Qty: 30 RF: 11 loperamide 2 mg capsule 2 mg PO Q4H PRN (Reason: diarrhea) Qty: 30 RF: 2 albuterol sulfate [Ventolin HFA] 90 mcg/actuation HFA aerosol inhaler 2 puff inhalation Q6H PRN (Reason: shortness of breath or wheezing) Qty: 18 RF: 0 budesonide 0.5 mg/2 mL suspension for nebulization 0.5 mg inhalation BID Qty: 120 RF: 2 Myrbetriq 50 mg tablet extended release 24 hr 50 mg PO DAILY RF: 0 acetaminophen [Tylenol Extra Strength] 500 mg tablet 1,000 mg PO HS RF: 0 cinnamon bark 500 mg capsule 1,000 mg PO QAM RF: 0 omega-3 acid ethyl esters 1 gram capsule 1 cap PO QAM RF: 0 cholecalciferol (vitamin D3) 1,000 unit tablet 1,000 units PO QAM RF: 0 calcium carbonate-vitamin D3 [Calcium with Vitamin D] 600 mg(1,500mg) -400 unit tablet 1 tab PO QAM RF: 0 cyanocobalamin (vitamin B-12) 1,000 mcg capsule 1,000 mcg PO HS RF: 0 pantoprazole 40 mg Tablet,Delayed Release (Dr/Ec) 40 mg PO QAM RF: 0 ondansetron HCl [Zofran] 4 mg tablet 4 mg PO QID PRN (Reason: Nausea) Qty: 30 RF: 5 potassium chloride 10 mEq tablet,ER particles/crystals 10 meq PO DAILY RF: 0 Discontinued furosemide [Lasix] 20 mg tablet 40 mg PO QAM PRN (Reason: Edema, shortness of breath) Qty: 180 RF: 1 morphine 10 mg/5 mL solution 10 mg PO Q6H PRN (Reason: pain) Qty: 100 RF: 0 Discharge Orders: Discharge Order (Routine); Ordered 12/03/20 Ordered By: Deisy Davalos Admission Data Admit Date/Time: 11/28/20 21:01 Attending Provider: Deisy Davalos Admit Provider: Teddy Pfeiffer Primary Care Provider: Li Miner Other Providers: Clifford Loredo [facility] [place] Coding Level of Care Code D/C Day Management >30 mins Diagnoses Anemia D64.9 Anemia type: unspecified type SOB (shortness of breath) R06.02 Diarrhea R19.7 Diarrhea type: unspecified type Pleural effusion J90 Hypomagnesemia E83.42 Hypokalemia E87.6 Paroxysmal atrial fibrillation I48.0 CHF (congestive heart failure) I50.9 Heart failure chronicity: acute Heart failure type: unspecified Hypertension I10 Hypertension type: unspecified Chronic respiratory failure with hypoxia J96.11 Chronic obstructive pulmonary disease J44.9 Dyslipidemia E78.5 Esophageal dysmotility K22.4 Folic acid deficiency E53.8 Sleep apnea G47.30 Lymphoma C85.90 Lymphoma type: non-Hodgkin Non-Hodgkin lymphoma type: unspecified type Lymphoma site: unspecified region DVT prophylaxis Z29.9
[2020-12-03] MEDS: HEPARIN 100 UNIT/ML 5ML FLUSH FLUSH PRN (15:22)
[2020-12-03] MEDS: AMIODARONE 200 MG TAB PO SCH (15:22)
[2020-12-04 11:01] LABS: CA 27.29 26 U/mL (<38); CA15-3 Breast Antigen 20 U/mL (<32)
== END 2020-12-03 15:51 | disposition home health service (06) | DRG 291 ==
LOC: ED 17:34 → SUATTDRO 21:01 → 2S 21:01

== ENCOUNTER 2021-10-06 13:40 | Inpatient (IN) ==
--- NOTE | 2021-10-06 14:17 | Emergency Department Note ---
History of Present Illness General Chief Complaint: Shortness of Breath/Dyspnea Stated Complaint: CAN'T BREATHE, WEAKNESS Time Seen by Provider: 10/06/21 14:00 History of Present Illness Provider Complaint: shortness of breath Onset (ago): week(s) (2) Severity: severe Consistency/Duration: + progressively worsening Maximum Pain Intensity: 2 Current Pain Intensity: 0 Relieved By: + rest Exacerbated By: + exertion Context: + occurred during exertion and + medication noncompliance; no recent illness, no choking/aspiration or no recent travel Known history of: COPD and congestive heart failure Associated symptoms: + cough; no chest pain, no pain with inspiration, no fever, no wheezing, no sputum production, no orthopnea, no lower extremity pain, no polyuria, no polydipsia, no paresthesias, no palpitations, no carpopedal spasm, no hemoptysis, no diaphoresis, no nausea/vomiting, no syncope, no abdominal pain, no rash, no sense of impending doom, no chest congestion, no dizziness or no lightheadedness Related Data Home oxygen amount: 4 liters Home Medications Medication Instructions Recorded Confirmed Type acetaminophen 500 mg tablet 1,000 mg PO HS tab 06/03/19 10/06/21 History (Tylenol Extra Strength) calcium carbonate 600 mg-vitamin 1 tab PO QAM 07/31/19 10/06/21 History D3 10 mcg (400 unit) tablet (Calcium with Vitamin D) cholecalciferol (vitamin D3) 25 1,000 units PO QAM 07/31/19 10/06/21 History mcg (1,000 unit) tablet cinnamon bark 500 mg capsule 1,000 mg PO QAM 07/31/19 10/06/21 History cyanocobalamin (vitamin B-12) 1,000 mcg PO HS 07/31/19 10/06/21 History 1,000 mcg capsule omega-3 acid ethyl esters 1 gram 1 cap PO QAM 07/31/19 10/06/21 History capsule ipratropium 0.5 mg-albuterol 3 mg 3 ml INHALATION Q4H PRN #180 ml 10/05/20 10/06/21 Rx (2.5 mg base)/3 mL nebulization soln mirabegron 50 mg tablet,extended 50 mg PO HS tab 10/14/20 10/06/21 History release 24 hr (Myrbetriq) potassium chloride 10 mEq 10 meq PO QAM 11/28/20 10/06/21 History tablet,extended release(part/cryst) budesonide 0.5 mg/2 mL suspension 0.5 mg INHALATION BID PRN 03/24/21 10/06/21 History for nebulization mometasone 50 mcg/actuation nasal 2 spray INTRANASAL QAM 03/24/21 10/06/21 History spray tiotropium 2.5 mcg-olodaterol 2.5 2 puff INHALATION QAM 03/24/21 10/06/21 History mcg/actuation mist for inhalation (Stiolto Respimat) camphor 3.1 %-methyl salicylate 10 1 patch TOPICAL QAM 04/18/21 10/06/21 History %-menthol 6 % topical patch (Salonpas) guaifenesin 100 mg/5 mL oral liquid 200 mg PO QID PRN ml 04/18/21 10/06/21 History Oxygen Home #1 ea 05/11/21 10/06/21 Rx furosemide 40 mg tablet 40 mg PO BID #60 tab 06/12/21 10/06/21 Rx amlodipine 2.5 mg tablet (Norvasc) 2.5 mg PO QAM #90 tab 07/04/21 10/06/21 Rx loperamide 2 mg capsule 2 mg PO Q4H PRN #30 cap 08/15/21 10/06/21 Rx pantoprazole 40 mg tablet,delayed 40 mg PO BID #60 tab 08/15/21 10/06/21 Rx release apixaban 5 mg tablet (Eliquis) 5 mg PO BID #180 tab 08/22/21 10/06/21 Rx amiodarone 200 mg tablet 200 mg PO BID #180 tab 09/04/21 10/06/21 Rx mupirocin 2 % topical ointment See Rx Instructions TOPICAL BID 09/08/21 10/06/21 Rx #15 g ofloxacin 0.3 % ear drops 5 drp OTIC (EAR) BID 10 Days #10 ml 09/08/21 10/06/21 Rx cefdinir 300 mg capsule 300 mg PO BID #20 cap 09/22/21 10/06/21 Rx nystatin 100,000 unit/gram topical 1 applic TOPICAL BID #60 g 09/22/21 10/06/21 Rx powder metoprolol tartrate 25 mg tablet 12.5 mg PO BID #90 tab 10/02/21 10/06/21 Rx albuterol sulfate 90 mcg/actuation 2 puff INHALATION TID PRN 10/06/21 10/06/21 History aerosol inhaler (Ventolin HFA) apixaban 5 mg tablet (Eliquis) 5 mg PO BID 10/06/21 10/06/21 History benzonatate 100 mg capsule 100 mg PO TID 10/06/21 10/06/21 History ondansetron HCl 4 mg tablet 4 mg PO QID PRN 10/06/21 10/06/21 History Allergies Allergy/AdvReac Type Severity Reaction Status Date / Time dexamethasone Allergy Severe Shortness Verified 10/06/21 15:39 of Breath, throat constriction Sulfa (Sulfonamide Allergy Severe HIVES Verified 10/06/21 15:39 Antibiotics) adhesive tape Allergy Intermediate redness, Verified 10/06/21 15:39 irritation, peels skin off amoxicillin Allergy Unknown hives Verified 10/06/21 15:39 azithromycin Allergy Unknown Hives Verified 10/06/21 15:39 [From Zithromax Z-Siddhartha] clavulanic acid Allergy Unknown hives Verified 10/06/21 15:39 meperidine Allergy Unknown HIVES Verified 10/06/21 15:39 Penicillins Allergy Unknown hives Verified 10/06/21 15:39 cephalexin [From Keflex] Allergy Verified 10/06/21 15:39 ciprofloxacin [From Cipro] AdvReac Severe Vomiting Verified 10/06/21 15:39 codeine AdvReac Unknown NAUSEA AND Verified 10/06/21 15:39 VOMITING ketorolac AdvReac Unknown 'increased Verified 10/06/21 15:39 bleeding' Past Med/Surg History Medical History Acid reflux disease Anemia Anticoagulant long-term use Chronic otitis media of left ear with effusion Chronic pain of left upper extremity SHOULDER Chronic respiratory failure with hypoxia Degenerative disc disease Dyspnea on exertion Esophageal dysmotility ETD (eustachian tube dysfunction) Folic acid deficiency History of breast cancer 1993/1994 right breast cancer -- CHEMO. sx. History of stroke 2014. Small chronic lacunar infarct noted on 03/[address] no residual. Hypertension Lumbar stenosis with neurogenic claudication Nephrolithiasis HX OF Nocturnal hypoxia Non-Hodgkin lymphoma 2017 - CHEMO AND RADIATION On home O2 3 LPM cont Osteoarthritis Paroxysmal atrial fibrillation hx mult cardioversions; on eliquis; follows with Dr. Sullivan Peripheral neuropathy Pneumonia Port-A-Cath in place HAS IT FLUSHED EVERY 6 WEEKS Rosacea Scoliosis Spinal stenosis Stage 3 chronic kidney disease Thrombocytopenia Thyroid nodule Vitamin D deficiency Surgical History H/O colonoscopy H/O dilation and curettage multiple H/O: hysterectomy EVELIA History of appendectomy History of back surgery lumbar fusion History of bladder surgery bladder tack History of bronchoscopy History of cardioversion History of esophagogastroduodenoscopy (EGD) History of lobectomy of lung Left upper lobe r/t nodule (granuloma) History of mastectomy right with lymph node removal History of tonsillectomy S/P cervical spinal fusion x2 (1969's) unsure of levels. ROM WNL S/P cholecystectomy S/P thyroid biopsy negative Family History Mother Coronary heart disease Cancer Atrial fibrillation Heart disease Hypertension Father Coronary heart disease Myocardial infarction Cancer Heart disease Hypertension Aunt Cancer Brother Prostate cancer Son Bladder cancer Other No family history of adverse response to anesthesia No family history of bleeding disorder Stroke Denies family history of Ovarian cancer Hearing loss Kidney disease Breast cancer Colorectal cancer Asthma Social History Smoking Status: Never smoker Second Hand Exposure: No; Hx Alcohol Use: No Hx Substance Use: No Preferred Language: [place] Communication Ability: Effective Visual Impairment: Partially Limited Hearing Ability: Normal Environmental Engineer Required: No Beliefs That Will Affect Care: None marital status: / Current Living Situation: Family Current Living Situation Comment: lives with kellie and her 2 great grandaughters current occupational status: retired How many Children do You have: 1 Feels Safe at Home: Yes Childhood Exposure to Second-Hand Smoke: No caffeine: Yes (daria mariana, pepsi) Dental Care, Regularly: No Physical Activity Frequency: 1-2 Times per Week Physical Activity Frequency Comment: Physical therapy at home Seatbelt Use: always Sunscreen Use: No Do you think of yourself as: straight/heterosexual Assistive Devices: Denture - Upper, Denture - Lower, Glasses, Nebulizer, Oxygen - Continuous and Walker Review of Systems A total of 10 systems reviewed and were otherwise negative Physical Exam Vital Signs: Vital Signs - 24 hr 10/06/21 13:45 10/06/21 13:48 10/06/21 14:11 Temperature 36.5 C Temperature Source Oral Pulse Rate 74 Pulse Rate [Apical ] Respiratory Rate 18 Blood Pressure 154/61 H Blood Pressure [Le ft Arm] Blood Pressure Dayana n 92 Blood Pressure Dayana n [Left Arm] Pulse Oximetry 100 100 98 Oxygen Delivery Me thod Nasal Cannula Nasal Cannula Oxygen Flow Rate 4 4 Sepsis Recent Feve r Within 48 Hours No Sepsis New/Unexpla ined Change in Men efrain Status No Sepsis Action Take n by Nursing No Action Required Oxygen Flow Rate - Titration 3 Pulse Oximetry Pos t Tiitration 98 10/06/21 15:41 10/06/21 16:55 Temperature Temperature Source Pulse Rate Pulse Rate [Apical ] 62 60 Respiratory Rate 18 20 Blood Pressure Blood Pressure [Le ft Arm] 158/73 H Blood Pressure Dayana n Blood Pressure Dayana n [Left Arm] 101 Pulse Oximetry 98 98 Oxygen Delivery Me thod Nasal Cannula Nasal Cannula Oxygen Flow Rate 3 3 Sepsis Recent Feve r Within 48 Hours Sepsis New/Unexpla ined Change in Men efrain Status Sepsis Action Take n by Nursing Oxygen Flow Rate - Titration Pulse Oximetry Pos t Tiitration Physical Exam: Physical Exam GENERAL: She is oriented to person, place, and time. She appears well-developed and well-nourished. She does not appear distressed. HENT: Exam performed. -Head: Normocephalic and atraumatic. -Right Ear: External ear normal. No mastoid tenderness. -Left Ear: External ear normal. No mastoid tenderness. -Mouth/Throat: The oropharynx is clear and moist. No trismus in the jaw. No dental abscesses or uvula swelling. No oropharyngeal exudate or tonsillar abscesses. EYES: Conjunctivae and EOM are normal. Pupils are equal, round, and reactive to light. Right eye exhibits no discharge. Left eye exhibits no discharge. No scleral icterus. NECK: Normal range of motion. Neck supple. No JVD present. No spinous process tenderness present. No carotid bruit present. No rigidity. No tracheal deviation and normal range of motion present. No Brudzinski's sign and no Kernig's sign noted. CV: Normal rate, irregular rhythm, normal heart sounds and intact distal pulses. Palpable radial pulses bue. PULM/CHEST: Inspiratory rales at the bases. ABD: The abdomen is soft. Bowel sounds are normal. She has no distension. No mass is present. There is no tenderness. There is no rebound, no guarding, no To's sign and no tenderness at McBurney's point. Rovsig negative MUSC/SKEL: Normal range of motion. There is no tenderness or deformity. 1+ pitting edema of the bilateral lower extremities. LYMPH: No cervical adenopathy. NEURO: She is alert and oriented to person, place, and time. She has normal strength. No cranial nerve deficit or sensory deficit. Coordination and gait normal. GCS eye subscore is 4. GCS verbal subscore is 5. GCS motor subscore is 6. Cerebellar tests wnl. SKIN: Skin is warm and dry. She is not diaphoretic. PSYCH: She has a normal mood and affect. Behavior is normal. Judgment and thought content normal. Course Course 1400: The patient was evaluated in room C3. A complete history and physical exam was performed Cardiac monitoring: An order was placed for continuous cardiac monitoring. The monitor shows a rate of 70 with atrial fibrilation rhythm 1735: Vital signs stable. Labs show hemoglobin 8.2. ABG within normal limits. Creatinine 1.4. Troponin negative proBNP 922. Chest x-ray shows cardiomegaly with cephalization on my viewing. On reassessment, the patient states she feels feels short of breath. Patient will be admitted to the [facility] ali team IV Lasix ordered for the patient. Administered Medications Discontinued Medications Furosemide (Furosemide 40 Mg/4 Ml Vial) 40 mg IV ONE ONE Stop: 10/06/21 17:36 Last Admin: 10/06/21 18:00 Dose: 40 mg Documented by: [id number] Medical Decision Making Laboratory Data Result diagrams: 10/06/21 14:30 10/06/21 14:30 Lab Results 10/06/21 10/06/21 10/06/21 Range/Units 14:30 14:30 15:11 WBC 5.48 (4.8-10.8) K/uL RBC 2.94 L (4.2-5.4) M/uL Hgb 8.2 L (12.0-16.0) g/dL Hct 26.5 L (37-47) % MCV 90.1 (80-100) fL MCH 27.9 (25-34) pg MCHC 30.9 L (32-36) g/dL RDW Std Deviation 55.6 H (36.4-46.3) fL RDW Coeff of Zackary 16.8 H (11.5-14.5) % Plt Count 155 (130-400) K/uL MPV 9.6 (7.4-10.4) fL Immature Gran % (Auto) 0.4 % Neut % (Auto) 62.9 % Lymph % (Auto) 23.5 % [place] % (Auto) 11.1 % Eos % (Auto) 1.6 % Baso % (Auto) 0.5 % Neut # (Auto) 3.44 (1.4-6.5) K/uL Lymph # (Auto) 1.29 (1.2-3.4) K/uL [place] # (Auto) 0.61 H (0.11-0.59) K/uL Eos # (Auto) 0.09 (0-0.5) K/uL Baso # (Auto) 0.03 (0-0.2) K/uL Immature Gran # (Auto) 0.02 (0.00-0.02) K/uL VBG pH (7.36-7.41) VBG pCO2 (38-50) mmHg VBG pO2 mmHg VBG HCO3 mmol/L VBG O2 Saturation % VBG Base Excess mEq/L Barometric Pressure mm/Hg Sodium 136 (136-145) mmol/L Potassium 3.7 (3.5-5.1) mmol/L Chloride 103 (98-107) mmol/L Carbon Dioxide 25 (21-32) mmol/L Anion Gap 8 (3-11) BUN 20 (6-23) mg/dl Creatinine 1.40 H (0.6-1.2) mg/dl Est Cr Clr Drug Dosing Not Reportable Est GFR ( Amer) 40.7 ml/min Est GFR (Non-Af Amer) 35.1 ml/min BUN/Creatinine Ratio 14.3 (10-20) Glucose 99 (70-99(Fasting)) mg/dl Calcium 9.3 (8.5-10.1) mg/dl Troponin I < 0.03 (0-0.04) ng/ml B-Natriuretic Peptide 922 H (0-100) pg/ml Lipase 50 (11-82) U/L 10/06/21 Range/Units 15:11 WBC (4.8-10.8) K/uL RBC (4.2-5.4) M/uL Hgb (12.0-16.0) g/dL Hct (37-47) % MCV (80-100) fL MCH (25-34) pg MCHC (32-36) g/dL RDW Std Deviation (36.4-46.3) fL RDW Coeff of Zackary (11.5-14.5) % Plt Count (130-400) K/uL MPV (7.4-10.4) fL Immature Gran % (Auto) % Neut % (Auto) % Lymph % (Auto) % [place] % (Auto) % Eos % (Auto) % Baso % (Auto) % Neut # (Auto) (1.4-6.5) K/uL Lymph # (Auto) (1.2-3.4) K/uL [place] # (Auto) (0.11-0.59) K/uL Eos # (Auto) (0-0.5) K/uL Baso # (Auto) (0-0.2) K/uL Immature Gran # (Auto) (0.00-0.02) K/uL VBG pH 7.41 (7.36-7.41) VBG pCO2 43 (38-50) mmHg VBG pO2 36 mmHg VBG HCO3 27 mmol/L VBG O2 Saturation 65.7 % VBG Base Excess 2.0 mEq/L Barometric Pressure 722.2 mm/Hg Sodium (136-145) mmol/L Potassium (3.5-5.1) mmol/L Chloride (98-107) mmol/L Carbon Dioxide (21-32) mmol/L Anion Gap (3-11) BUN (6-23) mg/dl Creatinine (0.6-1.2) mg/dl Est Cr Clr Drug Dosing Est GFR ( Amer) ml/min Est GFR (Non-Af Amer) ml/min BUN/Creatinine Ratio (10-20) Glucose (70-99(Fasting)) mg/dl Calcium (8.5-10.1) mg/dl Troponin I (0-0.04) ng/ml B-Natriuretic Peptide (0-100) pg/ml Lipase (11-82) U/L Imaging Data Radiologist's Impression: Chest X-Ray 10/06/21 14:11 SINGLE VIEW CHEST CLINICAL HISTORY: Atypical chest pain. FINDINGS: An AP, portable, upright chest radiograph is compared to study dated 04/05/2021 and correlated with chest CT dated 02/27/2021. The examination is degraded by portable technique and patient rotation. A left subclavian central venous infusion port is unchanged in position. The heart is enlarged noting atherosclerotic calcification of the thoracic aorta. The pulmonary vasculature is noncongested. Emphysema and chronic interstitial thickening is similar to previous. Postoperative change and volume loss is noted in the left lung. Scarring/atelectasis is noted in both lungs. No superimposed airspace consolidation or large pleural effusion is identified. No pneumothorax is seen. The skeletal structures are osteopenic. The bony thorax is grossly intact. Fusion hardware is noted in the upper lumbar spine. Surgical clips are noted in the right axilla. IMPRESSION: Cardiomegaly, emphysema, and chronic parenchymal changes as above with no acute cardiopulmonary abnormality identified.. ACT 112: Negative or not required by law. Electronically signed by: Gallito Escalera M.D. 10/06/2021 2:45 PM ECG Data Interpretation: Atrial fibrillation with a rate of 70. QRS [address] elevation or ST depression MDM Narrative Vital signs stable. Labs show hemoglobin 8.2. ABG within normal limits. Creatinine 1.4. Troponin negative proBNP 922. Chest x-ray shows cardiomegaly with cephalization on my viewing. On reassessment, the patient states she feels feels short of breath. [facility] ordered for the patient. Impression & Plan CHF (congestive heart failure) Discharge Plan Visit Data Chief Complaint: Shortness of Breath/Dyspnea Stated Complaint: CAN'T BREATHE, WEAKNESS ED Provider: Dallin Jordan Discharge Problem: CHF (congestive heart failure) Patient Disposition: Admitted As Inpatient Forms Stand Alone Forms: My [facility] Prescriptions Prescriptions: No Action ipratropium-albuterol 0.5 mg-3 mg(2.5 mg base)/3 mL solution for nebulization 3 ml inhalation Q4H PRN (Reason: COPD) Qty: 180 RF: 5 guaifenesin 100 mg/5 mL liquid 200 mg PO QID PRN (Reason: Cough) RF: 0 Salonpas 3.1-10-6 % adhesive patch,medicated 1 patch topical QAM RF: 0 (DME) Oxygen Home Liters Per Minute See Rx Instructions .Route Qty: 1 RF: 0 furosemide 40 mg tablet 40 mg PO BID Qty: 60 RF: 3 amlodipine [Norvasc] 2.5 mg tablet 2.5 mg PO QAM Qty: 90 RF: 3 pantoprazole 40 mg tablet,delayed release (DR/EC) 40 mg PO BID Qty: 60 RF: 2 loperamide 2 mg capsule 2 mg PO Q4H PRN (Reason: diarrhea) Qty: 30 RF: 3 Eliquis 5 mg tablet 5 mg PO BID Qty: 180 RF: 1 amiodarone 200 mg tablet 200 mg PO BID Qty: 180 RF: 3 metoprolol tartrate 25 mg tablet 12.5 mg PO BID Qty: 90 RF: 3 ofloxacin 0.3 % drops 5 drp otic (ear) BID 10 Days Qty: 10 RF: 0 mupirocin 2 % ointment See Rx Instructions topical BID Qty: 15 RF: 1 Myrbetriq 50 mg tablet extended release 24 hr 50 mg PO HS RF: 0 acetaminophen [Tylenol Extra Strength] 500 mg tablet 1,000 mg PO HS RF: 0 nystatin 100,000 unit/gram powder 1 applic topical BID Qty: 60 RF: 0 cefdinir 300 mg capsule 300 mg PO BID Qty: 20 RF: 0 cinnamon bark 500 mg capsule 1,000 mg PO QAM RF: 0 omega-3 acid ethyl esters 1 gram capsule 1 cap PO QAM RF: 0 cholecalciferol (vitamin D3) 1,000 unit tablet 1,000 units PO QAM RF: 0 calcium carbonate-vitamin D3 [Calcium with Vitamin D] 600 mg(1,500mg) -400 unit tablet 1 tab PO QAM RF: 0 cyanocobalamin (vitamin B-12) 1,000 mcg capsule 1,000 mcg PO HS RF: 0 potassium chloride 10 mEq tablet,ER particles/crystals 10 meq PO QAM RF: 0 mometasone 50 mcg/actuation spray,non-aerosol 2 spray intranasal QAM RF: 0 budesonide 0.5 mg/2 mL suspension for nebulization 0.5 mg inhalation BID PRN (Reason: sob) RF: 0 Stiolto Respimat 2.5-2.5 mcg/actuation mist 2 puff inhalation QAM RF: 0 Eliquis 5 mg tablet 5 mg PO BID RF: 0 albuterol sulfate [Ventolin HFA] 90 mcg/actuation HFA aerosol inhaler 2 puff inhalation TID PRN (Reason: shortness of breath or wheezing) RF: 0 ondansetron HCl 4 mg tablet 4 mg PO QID PRN (Reason: Nausea) RF: 0 benzonatate 100 mg capsule 100 mg PO TID RF: 0 Referrals Referrals: Li Miner MD [Primary Care Provider] -
[2021-10-06 14:41] LABS: Basophils # (auto) 0.03 K/uL (0-0.2); Basophils % (auto) 0.5 %; Eosinophils # (auto) 0.09 K/uL (0-0.5); Eosinophils % (auto) 1.6 %; Hematocrit (blood only) 26.5 % (37-47); Hemoglobin 8.2 g/dL (12.0-16.0); Immature Granulocytes # (auto) 0.02 K/uL (0.00-0.02); Immature Granulocytes % (auto) 0.4 %; Lymphocytes # (auto) 1.29 K/uL (1.2-3.4); Lymphocytes % (auto) 23.5 %; Mean Corpuscular Hemoglobin 27.9 pg (25-34); Mean Corpuscular Hgb Conc 30.9 g/dL (32-36); Mean Corpuscular Volume 90.1 fL (80-100); Mean Platelet Volume 9.6 fL (7.4-10.4); Monocytes # (auto) 0.61 K/uL (0.11-0.59); Monocytes % (auto) 11.1 %; Neutrophils # (auto) 3.44 K/uL (1.4-6.5); Neutrophils % (auto) 62.9 %; Platelet Count 155 K/uL (130-400); RDW Coefficient of Variation 16.8 % (11.5-14.5); RDW Standard Deviation 55.6 fL (36.4-46.3); Red Blood Count 2.94 M/uL (4.2-5.4); White Blood Count 5.48 K/uL (4.8-10.8)
--- NOTE | 2021-10-06 14:46 | XRay Report ---
SINGLE VIEW CHEST CLINICAL HISTORY: Atypical chest pain. FINDINGS: An AP, portable, upright chest radiograph is compared to study dated 04/05/2021 and correlat ed with chest CT dated 02/27/2021. The examination is degraded by portable technique and patient rotat ion. A left subclavian central venous infusion port is unchanged in position. The heart is enlarged n oting atherosclerotic calcification of the thoracic aorta. The pulmonary vasculature is noncongested. Emphysema and chronic interstitial thickening is similar to previous. Postoperative change and volum e loss is noted in the left lung. Scarring/atelectasis is noted in both lungs. No superimposed airspa ce consolidation or large pleural effusion is identified. No pneumothorax is seen. The skeletal struc tures are osteopenic. The bony thorax is grossly intact. Fusion hardware is noted in the upper lumbar spine. Surgical clips are noted in the right axilla. IMPRESSION: Cardiomegaly, emphysema, and chronic parenchymal changes as above with no acute cardiopul monary abnormality identified.. ACT 112: Negative or not required by law. Electronically signed by: Gallito Escalera M.D. 10/06/2021 2:45 PM
[2021-10-06 15:13] LABS: Troponin I < 0.03 ng/ml (0-0.04)
[2021-10-06 15:15] LABS: Anion Gap 8 (3-11); BUN Creatinine Ratio 14.3 (10-20); Blood Urea Nitrogen 20 mg/dl (6-23); Calcium 9.3 mg/dl (8.5-10.1); Carbon Dioxide 25 mmol/L (21-32); Chloride 103 mmol/L (98-107); Est GFR (African American) 40.7 ml/min; Est GFR (Non-African American) 35.1 ml/min; Glucose 99 mg/dl (70-99(Fasting)); Lipase 50 U/L (11-82); Potassium 3.7 mmol/L (3.5-5.1); Sodium 136 mmol/L (136-145)
[2021-10-06 15:23] LABS: Oxygen Saturation VBG 65.7 %; pH VBG 7.41 (7.36-7.41)
[2021-10-06] MEDS ORDERED: FUROSEMIDE 40 MG/4 ML VIAL IV ONE (17:35)
--- NOTE | 2021-10-06 17:54 | History & Physical Report ---
Date of Service October 06, 2021 Assessment & Plan (1) Dyspnea on exertion: Plan: This is an 80-year-old female with a history of HFpEF, COPD, CKD 3, paroxysmal atrial fibrillation on anticoagulation (s/p ablation x 3 times in the past), chronic respiratory failure with hypoxia (baseline 3L NC requirement), anemia of chronic disease, lumbar stenosis with neurogenic claudication, history of CVA, hypertension, nephrolithiasis, non-Hodgkin lymphoma (last chemorx in 2017), breast cancer s/p mastectomy who presented to [facility] for evaluation of shortness of breath, subsequently found to have evidence of hypervolemia on exam and anemia to Hgb 8 on labs. Her presentation is concerning for [id number] CHF. [id number] Hypoxemic Respiratory Distress / Dyspnea on Exertion / Suspected Acute CHF Patient reporting several week history of increasing dyspnea on exertion, abdominal bloating, leg tightness, weight gain, cough that is not improved with home inhalers Work-up as follows Chest x-ray revealing cardiomegaly, emphysema CBC revealing normal white count, anemia to 8.2 (patient does have known chronic anemia, followed by hematology) VBG without appreciable abnormality ECG demonstrating rate controlled atrial fibrillation, no new conduction/repolarization abnormalities; troponin negative BNP elevated at 922 Primarily suspect progressive dyspnea on exertion and increased oxygen requirement are secondary to acute CHF. Her history of persistent normocytic anemia is noted; hemoglobin at 8 on arrival, which is also likely contributory. Her history of COPD is noted, however physical exam findings and history not consistent with this; symptoms not improved with as needed nebulizer. No current evidence of infectious etiology. She is on anticoagulation, lower suspicion for VTE. --> patient reports that symptoms have been progressively worse since her last hospitalization with pneumonia/RSV. --> trigger unclear at present; has been taking medications as prescribed, will require further dietary investigation. --> Atrial fibrillation has been paroxysmal in the past, but more persistently since May. She has received cardioversions in the past with Dr. Kiran. She is rate controlled right now. No e/o ACS or infection. Initiate Lasix 40 mg IV 3 times daily as renal function allows Fluid restriction under 2 L, low-sodium diet, daily weights, monitor intake and output If no improvement despite diuresis, may wish to obtain CT chest Obtain TTE in a.m. Monitor BMP, CBC (2) Chronic obstructive pulmonary disease: Plan: History noted; follows with [facility]. No smoking history personally, but does have significant second-hand exposure. As above, lower suspicion that COPD is a leading etiology in her progressive dyspnea on exertion Continue home inhalers Duo nebs as needed (3) CHF (congestive heart failure): Plan: Last TTE documented 02/17: LVEF 60 to 65%, mild concentric LVH. Obtain TTE, as above Hold home Lasix Fluid restriction, heart healthy/low-salt diet, daily weights, monitor intake and output (4) Anemia: Plan: Patient with known history of anemia of chronic disease, [facility]. Review of records ranges from 8 - 11 over the last several years. No history of blood loss reported. Likely contributory to some degree with her progressive dyspnea on exertion Oncology/hematology note scanned into our system from 01/31/21 reviewedunfortunately, unable to obtain records at time of admission due to office being closed; would attempt obtaining records in a.m. if possible Iron studies from 08/2021 reviewed and appear adequate Trend CBC (5) Sleep apnea: Plan: Patient reports that she has been told in the past that she has sleep apnea, though denies ever having formal sleep study TTE will be obtained, as above, which will help evaluate right heart pressures Could consider outpatient sleep study (6) Chronic respiratory failure with hypoxia: Plan: As above; at baseline, patient does require 3L -- over past month, has required closer to 4-5L Titrate oxygen as needed to maintain oxygenation over 92% Lasix, as above (7) Paroxysmal atrial fibrillation: Plan: Patient with long reported history of paroxysmal atrial fibrillation, previously requiring multiple cardioversions in the past (due to dyspnea on exertion). Follows with Dr. Kiran (detailed note on 01/27/21 with history) Over the past several months, patient has been reported to be in atrial fibrillation during office visits. She is noted to be in atrial fibrillation, rate controlled, upon her arrival here as well. Lower suspicion at this time that acute presentation is secondary to atrial fibrillation; however, considered amidst work-up Obtain TTE, as above Continue Eliquis Continue amiodarone Pending results of TTE, can consider cardiology consultation (8) Hypertension: Plan: History noted. Diuresis, as above. Continue amlodipine. 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 History noted. (10) History of stroke: Plan: Small chronic lacunar infarct noted on 03/2019 CT of the head. No reported or observed residual deficits Patient not on lipid therapy right now; once immediate concerns are worked up, may wish to continue further discussion (11) History of breast cancer: Plan: History of right-sided breast cancer in , status post chemotherapy and right-sided mastectomy (12) Stage 3 chronic kidney disease: Plan: Patient with known history of CKD, creatinine baseline appears to be between 1.21.5 On presentation, creatinine at 1.4 Monitor BMP and avoid nephrotoxic medicines throughout diuresis (13) Non-Hodgkin lymphoma: Plan: Status post chemotherapy in 2016, port in place in the left chest [facility]. No active chemotherapy. As above, sent to obtain records when office is open Plan: Code: DNR/DNIdiscussed directly with patient at the bedside Diet: Heart healthy, low-sodium, fluid restriction under 2 L/D Prophylaxis: Continue Eliquis for A. fib Dispo: MedSurg with telemetry History of Present Illness Primary Care Provider: Li Miner MD This is an 80-year-old female with a history of HFpEF, COPD, CKD 3, paroxysmal atrial fibrillation on anticoagulation, chronic respiratory failure with hypoxia (baseline 3L/NC), anemia, lumbar stenosis with neurogenic claudication, history of CVA, hypertension, nephrolithiasis, non-Hodgkin lymphoma (last chemorx in 2017), breast cancer s/p mastectomy who presented to [facility] for evaluation of shortness of breath. Patient says that over the last month, she has progressively felt more short of breath with exertion. She says previously, she was able to walk around and feel comfortable; however, she is barely able to walk a few feet now without getting short of breath. She denies any chest pain with exertion. She does endorse paroxysmal nocturnal dyspnea and orthopnea over this time period. She also said that she has gained over 10 ann nds within the last few weeks. She says her belly feels tighter to her compared to before. She also endorses some tightness within both of her legs. She has required 4 to 5 L by her nasal cannula, which is increased compared to her baseline (3 L). She also said the shortness of breath was not affected by use of her as needed inhaler/nebulizers she also endorses an intermittent wet cough, that is nonproductive. She denies increased sputum production. She does endorse intermittent chills; no fevers or NS. No recent long car rides. She endorses taking her Lasix as prescribed, no missed doses. She notes that she has been trying to split up her meals and to smaller portions, usually "cookies or chips." She does endorse occasional, short lasting chest pain that is substernal in nature that usually happens when lying down. She thinks it may be related to her reflux. She denies this occurring with exertion. This has been noted back to 05/2021 at a cardiology visit with Farzana Healy. She had a negative dobutamine stress test in 10/2019 and was thought unlikely to be ischemic in nature. Patient does tell me that she was admitted for pneumonia at [facility], where she tested positive for RSV. At that time, she was also found to be in atrial fibrillation. She has been noted to be in atrial fibrillation at her follow-up visit since that time. Last TTE documented 02/17: LVEF 60 to 65%, mild concentric LVH. Medications reviewed: Tylenol, albuterol, amiodarone 200 mg twice daily, amlodipine, Eliquis 5 mg twice daily, budesonide 0.5 mg inhalation twice daily as needed, Lasix 40 mg twice daily, loperamide, metoprolol 12.5 mg twice daily, mirabegron, mometasone, pantoprazole, potassium, Stiolto Respimat. In the ED, patient found to be hypertensive to 150/60 with oxygen requirement of 4 L nasal cannula. Labs notable for normocytic anemia 8.2, normal white blood count, venous pH 7.4, PCO2 43, HCO3 27, creatinine bumped to 1.4, BUN 20, BNP 922, troponin negative. Chest x-ray demonstrating cardiomegaly and emphysema, with postoperative volume loss in the left lung (status post lobectomy). ECG demonstrating atrial fibrillation with normal ventricular rate 70 with QTc 457, similar to previous in 03/2021. She was given Lasix 40mg IV x 1. Allergies Allergy/AdvReac Type Severity Reaction Status Date / Time dexamethasone Allergy Severe Shortness Verified 10/06/21 15:39 of Breath, throat constriction Sulfa (Sulfonamide Allergy Severe HIVES Verified 10/06/21 15:39 Antibiotics) adhesive tape Allergy Intermediate redness, Verified 10/06/21 15:39 irritation, peels skin off amoxicillin Allergy Unknown hives Verified 10/06/21 15:39 azithromycin Allergy Unknown Hives Verified 10/06/21 15:39 [From Zithromax Z-Siddhartha] clavulanic acid Allergy Unknown hives Verified 10/06/21 15:39 meperidine Allergy Unknown HIVES Verified 10/06/21 15:39 Penicillins Allergy Unknown hives Verified 10/06/21 15:39 cephalexin [From Keflex] Allergy Verified 10/06/21 15:39 ciprofloxacin [From Cipro] AdvReac Severe Vomiting Verified 10/06/21 15:39 codeine AdvReac Unknown NAUSEA AND Verified 10/06/21 15:39 VOMITING ketorolac AdvReac Unknown 'increased Verified 10/06/21 15:39 bleeding' Home Medications Medication Instructions Recorded Confirmed Type acetaminophen 500 mg tablet 1,000 mg PO HS tab 06/03/19 10/06/21 History (Tylenol Extra Strength) calcium carbonate 600 mg-vitamin 1 tab PO QAM 07/31/19 10/06/21 History D3 10 mcg (400 unit) tablet (Calcium with Vitamin D) cholecalciferol (vitamin D3) 25 1,000 units PO QAM 07/31/19 10/06/21 History mcg (1,000 unit) tablet cinnamon bark 500 mg capsule 1,000 mg PO QAM 07/31/19 10/06/21 History cyanocobalamin (vitamin B-12) 1,000 mcg PO HS 07/31/19 10/06/21 History 1,000 mcg capsule omega-3 acid ethyl esters 1 gram 1 cap PO QAM 07/31/19 10/06/21 History capsule ipratropium 0.5 mg-albuterol 3 mg 3 ml INHALATION Q4H PRN #180 ml 10/05/20 10/06/21 Rx (2.5 mg base)/3 mL nebulization soln mirabegron 50 mg tablet,extended 50 mg PO HS tab 10/14/20 10/06/21 History release 24 hr (Myrbetriq) potassium chloride 10 mEq 10 meq PO QAM 11/28/20 10/06/21 History tablet,extended release(part/cryst) budesonide 0.5 mg/2 mL suspension 0.5 mg INHALATION BID PRN 03/24/21 10/06/21 History for nebulization mometasone 50 mcg/actuation nasal 2 spray INTRANASAL QAM 03/24/21 10/06/21 History spray tiotropium 2.5 mcg-olodaterol 2.5 2 puff INHALATION QAM 03/24/21 10/06/21 History mcg/actuation mist for inhalation (Stiolto Respimat) camphor 3.1 %-methyl salicylate 10 1 patch TOPICAL QAM 04/18/21 10/06/21 History %-menthol 6 % topical patch (Salonpas) guaifenesin 100 mg/5 mL oral liquid 200 mg PO QID PRN ml 04/18/21 10/06/21 History Oxygen Home #1 ea 05/11/21 10/06/21 Rx furosemide 40 mg tablet 40 mg PO BID #60 tab 06/12/21 10/06/21 Rx amlodipine 2.5 mg tablet (Norvasc) 2.5 mg PO QAM #90 tab 07/04/21 10/06/21 Rx loperamide 2 mg capsule 2 mg PO Q4H PRN #30 cap 08/15/21 10/06/21 Rx pantoprazole 40 mg tablet,delayed 40 mg PO BID #60 tab 08/15/21 10/06/21 Rx release apixaban 5 mg tablet (Eliquis) 5 mg PO BID #180 tab 08/22/21 10/06/21 Rx amiodarone 200 mg tablet 200 mg PO BID #180 tab 09/04/21 10/06/21 Rx mupirocin 2 % topical ointment See Rx Instructions TOPICAL BID 09/08/21 10/06/21 Rx #15 g ofloxacin 0.3 % ear drops 5 drp OTIC (EAR) BID 10 Days #10 ml 09/08/21 10/06/21 Rx cefdinir 300 mg capsule 300 mg PO BID #20 cap 09/22/21 10/06/21 Rx nystatin 100,000 unit/gram topical 1 applic TOPICAL BID #60 g 09/22/21 10/06/21 Rx powder metoprolol tartrate 25 mg tablet 12.5 mg PO BID #90 tab 10/02/21 10/06/21 Rx albuterol sulfate 90 mcg/actuation 2 puff INHALATION TID PRN 10/06/21 10/06/21 History aerosol inhaler (Ventolin HFA) apixaban 5 mg tablet (Eliquis) 5 mg PO BID 10/06/21 10/06/21 History benzonatate 100 mg capsule 100 mg PO TID 10/06/21 10/06/21 History ondansetron HCl 4 mg tablet 4 mg PO QID PRN 10/06/21 10/06/21 History Past Med/Surg History Medical History Acid reflux disease Anemia Anticoagulant long-term use Chronic otitis media of left ear with effusion Chronic pain of left upper extremity SHOULDER Chronic respiratory failure with hypoxia Degenerative disc disease Dyspnea on exertion Esophageal dysmotility ETD (eustachian tube dysfunction) Folic acid deficiency History of breast cancer right breast cancer -- CHEMO. sx. History of stroke 2014. Small chronic lacunar infarct noted on 03/[address] no residual. Hypertension Lumbar stenosis with neurogenic claudication Nephrolithiasis HX OF Nocturnal hypoxia Non-Hodgkin lymphoma 2017 - CHEMO AND RADIATION On home O2 3 LPM cont Osteoarthritis Paroxysmal atrial fibrillation hx mult cardioversions; on eliquis; follows with Dr. Sullivan Peripheral neuropathy Pneumonia Port-A-Cath in place HAS IT FLUSHED EVERY 6 WEEKS Rosacea Scoliosis Spinal stenosis Stage 3 chronic kidney disease Thrombocytopenia Thyroid nodule Vitamin D deficiency Surgical History H/O colonoscopy H/O dilation and curettage multiple H/O: hysterectomy EVELIA History of appendectomy History of back surgery lumbar fusion History of bladder surgery bladder tack History of bronchoscopy History of cardioversion History of esophagogastroduodenoscopy (EGD) History of lobectomy of lung Left upper lobe r/t nodule (granuloma) History of mastectomy right with lymph node removal History of tonsillectomy S/P cervical spinal fusion x2 (1969's) unsure of levels. ROM WNL S/P cholecystectomy S/P thyroid biopsy negative Family History Mother Coronary heart disease Cancer Atrial fibrillation Heart disease Hypertension Father Coronary heart disease Myocardial infarction Cancer Heart disease Hypertension Aunt Cancer Brother Prostate cancer Son Bladder cancer Other No family history of adverse response to anesthesia No family history of bleeding disorder Stroke Denies family history of Ovarian cancer Hearing loss Kidney disease Breast cancer Colorectal cancer Asthma Social History Smoking Status: Never smoker Second Hand Exposure: No; Hx Alcohol Use: No Hx Substance Use: No Preferred Language: Belarusian Communication Ability: Effective Visual Impairment: Partially Limited Hearing Ability: Normal Labor Delivery Specialist Required: No Beliefs That Will Affect Care: None marital status: / Current Living Situation: Family Current Living Situation Comment: lives with kellie and her 2 great grandauquiqueters current occupational status: retired How many Children do You have: 1 Feels Safe at Home: Yes Childhood Exposure to Second-Hand Smoke: No caffeine: Yes (daria mariana, pepsi) Dental Care, Regularly: No Physical Activity Frequency: 1-2 Times per Week Physical Activity Frequency Comment: Physical therapy at home Seatbelt Use: always Sunscreen Use: No Do you think of yourself as: straight/heterosexual Assistive Devices: Denture - Upper, Denture - Lower, Glasses, Nebulizer, Oxygen - Continuous and Walker Review of Systems Review of Systems: as per HPI Physical Exam Physical Exam: General: Tired appearing 80-year-old female who is mildly conversationally dyspneic, otherwise no distress. HEENT: NCAT. - Eyes - Sclera are white, anicteric, and without injection. PERRL. - Mouth - MMM with no tonsillar edema or exudates. - Neck -jugular venous distention appreciated approximately 3 fingerbreadths above the right clavicle, positive hepatojugular reflux Cardiac: Normal rate and irregular rhythm; S1 and S2 present with no murmurs, rubs, or gallops. Pulmonary: Mildly increased respiratory effort with symmetric expansion of the chest. No use of accessory muscles. Lungs did demonstrate some fine crackles at both bases bilaterally, otherwise clear. Abdominal: Normoactive bowel sounds. Abdomen was soft, mildly distended, otherwise nontender. Extremities: Upper and lower extremities are warm and well perfused. 1+ pitting edema bilaterally Psych: Well-developed, well-nourished, appropriately dressed for occasion. Behavior is cooperative and appropriate. Affect is WNL. Insight is appropriate. Results & Data Results & Data ([facility]) Vital Signs (Past 12 Hours) Vital Signs Temp Pulse Pulse Resp BP BP Pulse Ox 10/06/21 16:55 60 20 158/73 H 98 10/06/21 15:41 62 18 98 10/06/21 14:11 98 10/06/21 13:48 100 10/06/21 13:45 36.5 C 74 18 154/61 H 100 Resident Activity Tracking Resident Involvement: Resident Care Provided Care Provided: Adult Hospital Medicine (1) CHF (congestive heart failure) Heart failure chronicity: acute Heart failure type: unspecified Qualified Code(s): I50.9 - Heart failure, unspecified (2) Hypertension Hypertension type: unspecified Qualified Code(s): I10 - Essential (primary) hypertension
[2021-10-06] MEDS ORDERED: ACETAMINOPHEN 325 MG TAB PO PRN (18:14)
[2021-10-07] MEDS ORDERED: guaiFENesin SUGAR FREE 200 MG/10 ML UDC PO PRN (00:02)
[2021-10-07] MEDS ORDERED: ALBUT/IPRATROP 3MG/0.5MG NEB 3 ML VIAL INH PRN (00:02)
[2021-10-07] MEDS ORDERED: BUDESONIDE 0.5 MG/2 ML VIAL (PULMICORT) INH PRN (00:02)
[2021-10-07] MEDS ORDERED: ALBUTEROL HFA 8 GM INHALER INH PRN (00:02)
[2021-10-07] MEDS ORDERED: FUROSEMIDE 40 MG/4 ML VIAL IV SCH (00:02)
[2021-10-07] MEDS ORDERED: LOPERAMIDE HCL 2 MG CAP PO PRN (00:02)
[2021-10-07] MEDS ORDERED: ONDANSETRON 4 MG OD TAB PO PRN (00:51)
[2021-10-07] MEDS: ACETAMINOPHEN 500 MG TAB PO SCH ×2 (01:18→20:13)
[2021-10-07] MEDS: NYSTATIN POWDER 15GM BTL EXT SCH ×3 (01:18→20:23)
[2021-10-07] MEDS: MUPIROCIN 2% OINT 22 GM TUBE TOP SCH ×3 (01:19→20:10)
[2021-10-07] MEDS: MIRABEGRON ER 25 MG TAB PO SCH ×2 (01:19→20:11)
[2021-10-07] MEDS: METOPROLOL TARTRATE 25 MG TAB PO SCH ×3 (01:20→20:21)
[2021-10-07] MEDS: PANTOprazole 40 MG TAB PO SCH ×3 (01:21→20:10)
[2021-10-07] MEDS: CYANOCOBALAMIN (B-12) 500 MCG TABLET PO SCH ×2 (01:22→20:12)
[2021-10-07] MEDS: AMIODARONE 200 MG TAB PO SCH ×3 (01:23→20:22)
[2021-10-07] MEDS: APIXABAN 5 MG TABLET PO SCH ×3 (01:23→20:12)
[2021-10-07] MEDS: BENZONATATE 100 MG CAPSULE PO SCH ×4 (01:23→20:12)
[2021-10-07 06:14] LABS: Basophils # (auto) 0.02 K/uL (0-0.2); Basophils % (auto) 0.4 %; Eosinophils # (auto) 0.07 K/uL (0-0.5); Eosinophils % (auto) 1.3 %; Hematocrit (blood only) 25.8 % (37-47); Immature Granulocytes # (auto) 0.01 K/uL (0.00-0.02); Immature Granulocytes % (auto) 0.2 %; Lymphocytes # (auto) 1.32 K/uL (1.2-3.4); Lymphocytes % (auto) 24.9 %; Mean Corpuscular Hemoglobin 28.1 pg (25-34); Mean Corpuscular Volume 90.5 fL (80-100); Mean Platelet Volume 9.1 fL (7.4-10.4); Monocytes % (auto) 13.2 %; Neutrophils # (auto) 3.19 K/uL (1.4-6.5); Platelet Count 172 K/uL (130-400); RDW Coefficient of Variation 16.8 % (11.5-14.5); RDW Standard Deviation 56.3 fL (36.4-46.3); Red Blood Count 2.85 M/uL (4.2-5.4); White Blood Count 5.31 K/uL (4.8-10.8)
[2021-10-07 06:34] LABS: BUN Creatinine Ratio 14.4 (10-20); Calcium 9.2 mg/dl (8.5-10.1); Chol HDL Ratio 2.8 (0-5); Creatinine Clr Calc Pharmacy 34.9 ml/min; Est GFR (African American) 43.7 ml/min; Est GFR (Non-African American) 37.7 ml/min; Potassium 3.4 mmol/L (3.5-5.1)
[2021-10-07 07:46] LABS: Estimated Average Glucose 103 mg/dl; Hemoglobin A1C 5.2 % (4.5-5.6)
[2021-10-07] MEDS: [UNRECOGNIZED DRUG - REMARK] SCH ×2 (08:31→15:27)
[2021-10-07] MEDS ORDERED: OFLOXACIN 0.3% OTIC SOLN 5 ML BTL OT SCH (09:00)
[2021-10-07] MEDS: amLODIPine BESYLATE 5 MG TAB PO SCH (09:15)
[2021-10-07] MEDS: CALCIUM 600MG + VIT D 400 IU TAB PO SCH (09:16)
[2021-10-07] MEDS: FLUTICASONE PROPIONATE NA SPR 16 GM BTL SCH (09:16)
[2021-10-07] MEDS: OMEGA-3 (PURIFIED FISH OIL) 1 GM CAP PO SCH (09:16)
[2021-10-07] MEDS: CHOLECALCIFEROL 1,000 UNITS 25 MCG TAB PO SCH (09:16)
[2021-10-07] MEDS: POTASSIUM CHLORIDE 10 MEQ TABCR PO SCH (09:19)
[2021-10-07] MEDS: UMECLIDINIUM/VILANTEROL 62.5/25MCG 7 PUFFS/INHALER INH SCH (09:19)
[2021-10-07] MEDS: FUROSEMIDE 40 MG/4 ML VIAL IV SCH ×2 (09:22→20:22)
[2021-10-07] MEDS: HEPARIN 100 UNIT/ML 5ML FLUSH FLUSH PRN ×3 (09:25→20:26)
--- NOTE | 2021-10-07 09:59 | XCELERA ---
[id number]
--- NOTE | 2021-10-07 12:59 | Electrocardiogram Report ---
Test Reason : Blood Pressure : / mmHG Vent. Rate : 070 BPM Atrial Rate : 056 BPM P-R Int : 000 ms QRS Dur : 080 ms QT Int : 424 ms P-R-T Axes : 000 022 035 degrees QTc Int : 457 ms Atrial fibrillation Nonspecific ST and T wave abnormality Abnormal ECG When compared with ECG of 05-APR-2021 15:20, No significant change was found Confirmed by Ja Kiran ([id number]) on 10/07/2021 12:58:55 PM Referred By: Li Miner Confirmed By:Ja Kiran
[2021-10-07] MEDS ORDERED: POTASSIUM CHLORIDE CRTAB 20 MEQ TABCR PO STA (15:01)
[2021-10-07 16:16] LABS: Creatinine Clr Calc Pharmacy 26.6 ml/min; Est GFR (African American) 31.5 ml/min; Est GFR (Non-African American) 27.2 ml/min
[2021-10-07] MEDS: OFLOXACIN 0.3% OTIC SOLN 5 ML BTL OT SCH (20:10)
--- NOTE | 2021-10-07 20:17 | Hospitalist Progress Note ---
Date of Service October 07, 2021 Assessment & Plan (1) Dyspnea on exertion: Plan: This is an 80-year-old female with a history of HFpEF, COPD, CKD 3, paroxysmal atrial fibrillation on anticoagulation (s/p ablation x 3 times in the past), chronic respiratory failure with hypoxia (baseline 3L NC requirement), anemia of chronic disease, lumbar stenosis with neurogenic claudication, history of CVA, hypertension, nephrolithiasis, non-Hodgkin lymphoma (last chemorx in 2017), breast cancer s/p mastectomy who presented to [facility] for evaluation of shortness of breath, subsequently found to have evidence of hypervolemia on exam and anemia to Hgb 8 on labs. Her presentation is concerning for [id number] CHF. Jfqom-[id number]-[id number] Hypoxemic Respiratory Distress / Dyspnea on Exertion / Suspected Acute Diastolic CHF Patient reporting several week history of increasing dyspnea on exertion, abdominal bloating, leg tightness, weight gain, cough that is not improved with home inhalers Work-up as follows Chest x-ray revealing cardiomegaly, emphysema CBC revealing normal white count, anemia to 8.2 (patient does have known chronic anemia, followed by hematology) VBG without appreciable abnormality ECG demonstrating rate controlled atrial fibrillation, no new conduction/repolarization abnormalities; troponin negative BNP elevated at 922 Primarily suspect progressive dyspnea on exertion and increased oxygen requirement are secondary to acute CHF. Her history of persistent normocytic anemia is noted; hemoglobin at 8 on arrival, which is also likely contributory. Her history of COPD is noted, however physical exam findings and history not consistent with this; symptoms not improved with as needed nebulizer. No current evidence of infectious etiology. She is on anticoagulation, lower suspicion for VTE. --> patient reports that symptoms have been progressively worse since her last hospitalization with pneumonia/RSV. --> trigger unclear at present; has been taking medications as prescribed, will require further dietary investigation. --> Atrial fibrillation has been paroxysmal in the past, but more persistently since May. She has received cardioversions in the past with Dr. Kiran. She is rate controlled right now. No e/o ACS or infection. Decreased lasix to 50 mg IV BID. Fluid restriction under 2 L, low-sodium diet, daily weights, monitor intake and output TTE shows nomal EF Monitor BMP, CBC (2) Chronic obstructive pulmonary disease: Plan: History noted; follows with [facility]mon[facility]. No smoking history personally, but does have significant second-hand exposure. As above, lower suspicion that COPD is a leading etiology in her progressive dyspnea on exertion Continue home inhalers Duo nebs as needed (3) CHF (congestive heart failure): Plan: Acute diastolic CHF Last TTE documented 02/17: LVEF 60 to 65%, mild concentric LVH. Obtain TTE, as above Hold home Lasix Fluid restriction, heart healthy/low-salt diet, daily weights, monitor intake and output (4) Anemia: Plan: Patient with known history of anemia of chronic disease, [facility] Review of records ranges from 8 - 11 over the last several years. No history of blood loss reported. Likely contributory to some degree with her progressive dyspnea on exertion Oncology/hematology note scanned into our system from 01/31/21 reviewedunfortunately, unable to obtain records at time of admission due to office being closed; would attempt obtaining records in a.m. if possible Iron studies from 08/2021 reviewed and appear adequate Trend CBC (5) Sleep apnea: Plan: Patient reports that she has been told in the past that she has sleep apnea, though denies ever having formal sleep study TTE will be obtained, as above, which will help evaluate right heart pressures Could consider outpatient sleep study (6) Chronic respiratory failure with hypoxia: Plan: As above; at baseline, patient does require 3L -- over past month, has required closer to 4-5L Titrate oxygen as needed to maintain oxygenation over 92% Lasix, as above (7) Paroxysmal atrial fibrillation: Plan: Patient with long reported history of paroxysmal atrial fibrillation, previously requiring multiple cardioversions in the past (due to dyspnea on exertion). Follows with Dr. Kiran (detailed note on 01/27/21 with history) Over the past several months, patient has been reported to be in atrial fibrillation during office visits. She is noted to be in atrial fibrillation, rate controlled, upon her arrival here as well. Lower suspicion at this time that acute presentation is secondary to atrial fibrillation; however, considered amidst work-up Obtained TTE, as above Continue Eliquis Continue amiodarone (8) Hypertension: Plan: History noted. Diuresis, as above. Continue amlodipine. 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 History noted. (10) History of stroke: Plan: Small chronic lacunar infarct noted on 03/2019 CT of the head. No reported or observed residual deficits Patient not on lipid therapy right now; once immediate concerns are worked up, may wish to continue further discussion (11) History of breast cancer: Plan: History of right-sided breast cancer in , status post chemotherapy and right-sided mastectomy (12) Stage 3 chronic kidney disease: Plan: Patient with known history of CKD, creatinine baseline appears to be between 1.21.5 On presentation, creatinine at 1.4 Monitor BMP and avoid nephrotoxic medicines throughout diuresis (13) Non-Hodgkin lymphoma: Plan: Status post chemotherapy in 2017, port in place in the left chest [facility] No active chemotherapy. As above, sent to obtain records when office is open Plan: Code: DNR/DNIdiscussed directly with patient at the bedside Diet: Heart healthy, low-sodium, fluid restriction under 2 L/D Prophylaxis: Continue Eliquis for A. fib Dispo: Medr with telemetry Admission and Anticipated Discharge Date Admission Date: October 06, 2021 Subjective 80 yo female reports feeling better. She is on 3 liters nasal cannula at home. Review of Systems Review of Systems: All systems reviewed & are unremarkable except as noted in HPI & below Physical Exam Physical Exam: General: Comfortable, no distress HEENT: NCAT. - Eyes - Sclera are white, anicteric, and without injection. PERRL. - Mouth - MMM with no tonsillar edema or exudates. - Neck -no JVD noted Cardiac: Normal rate and irregular rhythm; S1 and S2 present with no murmurs, rubs, or gallops. Pulmonary: Symmetric expansion of the chest. No use of accessory muscles. Lungs did demonstrate some fine crackles at both bases bilaterally, otherwise clear. Abdominal: Normoactive bowel sounds. Abdomen was soft, mildly distended, otherwise nontender. Extremities: Upper and lower extremities are warm and well perfused. 1+ pitting edema bilaterally Psych: Well-developed, well-nourished, appropriately dressed for occasion. Behavior is cooperative and appropriate. Affect is WNL. Insight is appropriate. Results & Data Results & Data ([facility]) Vital Signs (Past 12 Hours) Vital Signs Temp Pulse Pulse Resp BP Pulse Ox 10/07/21 17:02 67 10/07/21 16:00 36.6 C 70 18 152/78 H 99 10/07/21 12:00 36.5 C 66 18 137/62 99 PG Care Time/CCT Total # of Minutes Spent Total Time Spent with Patient: Total time spent is greater than 50% in coordination of care (as documented) at patient's floor/unit and/or counseling patient: Coding Level of Care Code 20239 Subseq Hosp Care Lvl 3 Diagnoses Dyspnea on exertion R06.00 Chronic obstructive pulmonary disease J44.9 CHF (congestive heart failure) I50.9 Heart failure chronicity: acute Heart failure type: unspecified Anemia D64.9 Sleep apnea G47.30 Chronic respiratory failure with hypoxia J96.11 Paroxysmal atrial fibrillation I48.0 Hypertension I10 Hypertension type: unspecified History of lobectomy of lung Z90.2 History of stroke Z86.73 History of breast cancer Z85.3 Stage 3 chronic kidney disease N18.3 Non-Hodgkin lymphoma C85.90 (1) CHF (congestive heart failure) Heart failure chronicity: acute Heart failure type: unspecified Qualified Code(s): I50.9 - Heart failure, unspecified (2) Hypertension Hypertension type: unspecified Qualified Code(s): I10 - Essential (primary) hypertension
--- NOTE | 2021-10-07 20:55 | Billing Data ---
Date of Service October 06, 2021 Coding Level of Care Code 18540 Initial Inpt Care Lvl 3
[2021-10-08] MEDS: [UNRECOGNIZED DRUG - REMARK] SCH ×2 (00:46→07:41)
[2021-10-08] MEDS: BENZONATATE 100 MG CAPSULE PO SCH ×2 (07:39→13:39)
[2021-10-08] MEDS: OMEGA-3 (PURIFIED FISH OIL) 1 GM CAP PO SCH (07:40)
[2021-10-08] MEDS: CALCIUM 600MG + VIT D 400 IU TAB PO SCH (07:40)
[2021-10-08] MEDS: amLODIPine BESYLATE 5 MG TAB PO SCH (07:40)
[2021-10-08] MEDS: CHOLECALCIFEROL 1,000 UNITS 25 MCG TAB PO SCH (07:40)
[2021-10-08] MEDS: POTASSIUM CHLORIDE 10 MEQ TABCR PO SCH (07:40)
[2021-10-08] MEDS: AMIODARONE 200 MG TAB PO SCH (07:41)
[2021-10-08] MEDS: APIXABAN 5 MG TABLET PO SCH (07:41)
[2021-10-08] MEDS: FLUTICASONE PROPIONATE NA SPR 16 GM BTL SCH (07:42)
[2021-10-08] MEDS: METOPROLOL TARTRATE 25 MG TAB PO SCH (07:42)
[2021-10-08] MEDS: NYSTATIN POWDER 15GM BTL EXT SCH (07:43)
[2021-10-08] MEDS: UMECLIDINIUM/VILANTEROL 62.5/25MCG 7 PUFFS/INHALER INH SCH (07:44)
[2021-10-08] MEDS: PANTOprazole 40 MG TAB PO SCH (07:44)
[2021-10-08] MEDS: OFLOXACIN 0.3% OTIC SOLN 5 ML BTL OT SCH (07:44)
[2021-10-08] MEDS: MUPIROCIN 2% OINT 22 GM TUBE TOP SCH (07:54)
[2021-10-08] MEDS ORDERED: LIDOCAINE 5% 1 PATCH TD SCH (09:00)
[2021-10-08] MEDS: HEPARIN 100 UNIT/ML 5ML FLUSH FLUSH PRN (09:19)
[2021-10-08 11:37] LABS: Hematocrit (blood only) 27.7 % (37-47); Hemoglobin 8.4 g/dL (12.0-16.0); Mean Corpuscular Hemoglobin 28.1 pg (25-34); Mean Corpuscular Hgb Conc 30.3 g/dL (32-36); Mean Corpuscular Volume 92.6 fL (80-100); Mean Platelet Volume 9.4 fL (7.4-10.4); Platelet Count 179 K/uL (130-400); RDW Coefficient of Variation 16.8 % (11.5-14.5); RDW Standard Deviation 57.5 fL (36.4-46.3); Red Blood Count 2.99 M/uL (4.2-5.4); White Blood Count 4.67 K/uL (4.8-10.8)
[2021-10-08 11:49] LABS: BUN Creatinine Ratio 17.2 (10-20); Calcium 9.3 mg/dl (8.5-10.1); Creatinine Clr Calc Pharmacy 29.4 ml/min; Est GFR (African American) 35.5 ml/min; Est GFR (Non-African American) 30.6 ml/min; Potassium 3.9 mmol/L (3.5-5.1)
--- NOTE | 2021-10-08 14:51 | XRay Report ---
TWO VIEW CHEST CLINICAL HISTORY: Hypoxia. COPD. FINDINGS: PA and lateral chest radiographs are compared to study dated 10/06/2021 and correlated with c hest CT dated 02/27/2021. A left subclavian central venous infusion port is in place. The heart is enl arged noting atherosclerotic calcification of the thoracic aorta. The pulmonary vasculature is noncon gested. Enlargement of the central pulmonary arteries suggests pulmonary artery hypertension. Emphyse ma and chronic interstitial thickening is similar to previous. Postoperative change and volume loss i s noted in the left lung. Scarring/atelectasis is noted at both lung bases. There is no airspace cons olidation typical for pneumonia or pleural effusion. There is no pneumothorax. The skeletal structure s are osteopenic. Degenerative change and hyperkyphosis is noted in the thoracic spine. The bony thor ax appears intact. Thoracolumbar spinal fusion hardware is in place. Numerous surgical clips project over the upper abdomen. There are also surgical clips in the right axilla. IMPRESSION: Cardiomegaly, emphysema, and chronic parenchymal changes as above with no acute cardiopul monary abnormality identified. ACT 112: Negative or not required by law. Electronically signed by: Gallito Escalera M.D. 10/08/2021 2:50 PM
--- NOTE | 2021-10-09 21:12 | Discharge Summary ---
Date of Service October 08, 2021 Admission HPI Per Admitting Provider This is an 80-year-old female with a history of HFpEF, COPD, CKD 3, paroxysmal atrial fibrillation on anticoagulation, chronic respiratory failure with hypoxia (baseline 3L/NC), anemia, lumbar stenosis with neurogenic claudication, history of CVA, hypertension, nephrolithiasis, non-Hodgkin lymphoma (last chemorx in 2017), breast cancer s/p mastectomy who presented to [facility] for evaluation of shortness of breath. Patient says that over the last month, she has progressively felt more short of breath with exertion. She says previously, she was able to walk around and feel comfortable; however, she is barely able to walk a few feet now without getting short of breath. She denies any chest pain with exertion. She does endorse paroxysmal nocturnal dyspnea and orthopnea over this time period. She also said that she has gained over 10 pounds within the last few weeks. She says her belly feels tighter to her compared to before. She also endorses some tightness within both of her legs. She has required 4 to 5 L by her nasal cannula, which is increased compared to her baseline (3 L). She also said the shortness of breath was not affected by use of her as needed inhaler/nebulizers she also endorses an intermittent wet cough, that is nonproductive. She denies increased sputum production. She does endorse intermittent chills; no fevers or NS. No recent long car rides. She endorses taking her Lasix as prescribed, no missed doses. She notes that she has been trying to split up her meals and to smaller portions, usually "cookies or chips." She does endorse occasional, short lasting chest pain that is substernal in nature that usually happens when lying down. She thinks it may be related to her reflux. She denies this occurring with exertion. This has been noted back t o 05/2021 at a cardiology visit with Farzana Healy. She had a negative dobutamine stress test in 10/2019 and was thought unlikely to be ischemic in nature. Patient does tell me that she was admitted for pneumonia at [facility], where she tested positive for RSV. At that time, she was also found to be in atrial fibrillation. She has been noted to be in atrial fibrillation at her follow-up visit since that time. Last TTE documented 02/17: LVEF 60 to 65%, mild concentric LVH. Medications reviewed: Tylenol, albuterol, amiodarone 200 mg twice daily, amlodipine, Eliquis 5 mg twice daily, budesonide 0.5 mg inhalation twice daily as needed, Lasix 40 mg twice daily, loperamide, metoprolol 12.5 mg twice daily, mirabegron, mometasone, pantoprazole, potassium, Stiolto Respimat. In the ED, patient found to be hypertensive to 150/60 with oxygen requirement of 4 L nasal cannula. Labs notable for normocytic anemia 8.2, normal white blood count, venous pH 7.4, PCO2 43, HCO3 27, creatinine bumped to 1.4, BUN 20, BNP 922, troponin negative. Chest x-ray demonstrating cardiomegaly and emphysema, with postoperative volume loss in the left lung (status post lobectomy). ECG demonstrating atrial fibrillation with normal ventricular rate 70 with QTc 457, similar to previous in 03/2021. She was given Lasix 40mg IV x 1. Principal Diagnosis CHF exacerbation. Discharge Exam General: Comfortable, no distress HEENT: NCAT. - Eyes - Sclera are white, anicteric, and without injection. PERRL. - Mouth - MMM with no tonsillar edema or exudates. - Neck -no JVD noted Cardiac: Normal rate and irregular rhythm; S1 and S2 present with no murmurs, rubs, or gallops. Pulmonary: Symmetric expansion of the chest. No use of accessory muscles. Lungs did demonstrate some fine crackles at both bases bilaterally, otherwise clear. Abdominal: Normoactive bowel sounds. Abdomen was soft, mildly distended, otherwise nontender. Extremities: Upper and lower extremities are warm and well perfused. 1+ pitting edema bilaterally Psych: Well-developed, well-nourished, appropriately dressed for occasion. Behavior is cooperative and appropriate. Affect is WNL. Insight is appropriate. Discharge Data Allergies Allergy/AdvReac Type Severity Reaction Status Date / Time dexamethasone Allergy Severe Shortness Verified 10/13/21 13:17 of Breath, throat constriction Sulfa (Sulfonamide Allergy Severe HIVES Verified 10/13/21 13:17 Antibiotics) adhesive tape Allergy Intermediate redness, Verified 10/13/21 13:17 irritation, peels skin off amoxicillin Allergy Unknown hives Verified 10/13/21 13:17 azithromycin Allergy Unknown Hives Verified 10/13/21 13:17 [From Zithromax Z-Siddhartha] clavulanic acid Allergy Unknown hives Verified 10/13/21 13:17 meperidine Allergy Unknown HIVES Verified 10/13/21 13:17 Penicillins Allergy Unknown hives Verified 10/13/21 13:17 cephalexin [From Keflex] Allergy Verified 10/13/21 13:17 ciprofloxacin [From Cipro] AdvReac Severe Vomiting Verified 10/13/21 13:17 codeine AdvReac Unknown NAUSEA AND Verified 10/13/21 13:17 VOMITING ketorolac AdvReac Unknown 'increased Verified 10/13/21 13:17 bleeding' Consultations 10/06/21 17:35 ED Decision to Admit Stat Hospital Course (1) Dyspnea on exertion: This is an 80-year-old female with a history of HFpEF, COPD, CKD 3, paroxysmal atrial fibrillation on anticoagulation (s/p ablation x 3 times in the past), chronic respiratory failure with hypoxia (baseline 3L NC requirement), anemia of chronic disease, lumbar stenosis with neurogenic claudication, history of CVA, hypertension, nephrolithiasis, non-Hodgkin lymphoma (last chemorx in 2017), breast cancer s/p mastectomy who presented to [facility] for evaluation of shortness of breath, subsequently found to have evidence of hypervolemia on exam and anemia to Hgb 8 on labs. Her presentation is concerning for [id number] CHF. [id number] Hypoxemic Respiratory Distress / Dyspnea on Exertion / Suspected Acute Diastolic CHF Patient reporting several week history of increasing dyspnea on exertion, abdominal bloating, leg tightness, weight gain, cough that is not improved with home inhalers Work-up as follows Chest x-ray revealing cardiomegaly, emphysema CBC revealing normal white count, anemia to 8.2 (patient does have known chronic anemia, followed by hematology) VBG without appreciable abnormality ECG demonstrating rate controlled atrial fibrillation, no new conduction/repolarization abnormalities; troponin negative BNP elevated at 922 Primarily suspect progressive dyspnea on exertion and increased oxygen requirement are secondary to acute CHF/ may also be related with emphysema. Her history of persistent normocytic anemia is noted; hemoglobin at 8 on arrival, which is also likely contributory. Her history of COPD is noted, however physical exam findings and history not consistent with this on admission/however as patient diuresed, she did appear somewhat SOB. Perhaps a component of her emphysema s She is on anticoagulation, lower suspicion for VTE. --> patient reports that symptoms have been progressively worse since her last hospitalization with pneumonia/RSV. --> trigger unclear at present; has been taking medications as prescribed, --> Atrial fibrillation has been paroxysmal in the past, but more persistently since May. She has received cardioversions in the past with Dr. Kiran. She is rate controlled right now. No e/o ACS or infection. improved with diuretics. Fluid restriction under 2 L, low-sodium diet, daily weights, monitor intake and output TTE shows nomal EF (2) Chronic obstructive pulmonary disease: History noted; follows with [facility] Pulmonology. No smoking history personally, but does have significant second-hand exposure. As above, lower suspicion that COPD is a leading etiology in her progressive dyspnea on exertion Continue home inhalers Duo nebs as needed (3) CHF (congestive heart failure): Acute diastolic CHF Last TTE documented 02/17: LVEF 60 to 65%, mild concentric LVH. Obtain TTE, as above improve with diuretics: not completely at baseline Fluid restriction, heart healthy/low-salt diet, daily weights, monitor intake and output (4) Anemia: Patient with known history of anemia of chronic disease, [facility] Review of records ranges from 8 - 11 over the last several years. No history of blood loss reported. Likely contributory to some degree with her progressive dyspnea on exertion Oncology/hematology note scanned into our system from 01/31/21 reviewedunfortunately, unable to obtain records at time of admission due to office being closed; would attempt obtaining records in a.m. if possible Iron studies from 08/2021 reviewed and appear adequate (5) Sleep apnea: Patient reports that she has been told in the past that she has sleep apnea, though denies ever having formal sleep study TTE will be obtained, as above, which will help evaluate right heart pressures Could consider outpatient sleep study (6) Chronic respiratory failure with hypoxia: As above; at baseline, patient does require 3L -- over past month, has required closer to 4-5L Titrate oxygen as needed to maintain oxygenation over 92% Lasix, as above (7) Paroxysmal atrial fibrillation: Patient with long reported history of paroxysmal atrial fibrillation, previously requiring multiple cardioversions in the past (due to dyspnea on exertion). Follows with Dr. Kiran (detailed note on 01/27/21 with history) Over the past several months, patient has been reported to be in atrial fibrillation during office visits. She is noted to be in atrial fibrillation, rate controlled, upon her arrival here as well. Lower suspicion at this time that acute presentation is secondary to atrial fibrillation; however, considered amidst work-up Obtained TTE, as above Continue Eliquis Continue amiodarone (8) Hypertension: History noted. Diuresis, as above. Continue amlodipine. (9) History of lobectomy of lung: Performed for granuloma in left upper lobe. History noted. (10) History of stroke: Small chronic lacunar infarct noted on 03/2019 CT of the head. No reported or observed residual deficits Patient not on lipid therapy right now; once immediate concerns are worked up, may wish to continue further discussion (11) History of breast cancer: History of right-sided breast cancer in , status post chemotherapy and right-sided mastectomy (12) Stage 3 chronic kidney disease: Patient with known history of CKD, creatinine baseline appears to be between 1.21.5 On presentation, creatinine at 1.4 Monitor BMP and avoid nephrotoxic medicines throughout diuresis (13) Non-Hodgkin lymphoma: Status post chemotherapy in 2016, port in place in the left chest [facility] No active chemotherapy. As above, sent to obtain records when office is open Code: DNR/DNIdiscussed directly with patient at the bedside Diet: Heart healthy, low-sodium, fluid restriction under 2 L/D Prophylaxis: Continue Eliquis for A. fib Dispo: MedSurg with telemetry Total Time Total Time Spent Total Time Spent (In Minutes): 32 Discharge Plan Discharge Items Patient Disposition: Home - Self-Care Reason For Visit: SUSPECTED ACUTE CHF Discharge Diagnosis: suspected CHF Activity: Resume your previous activity Non-emergency contact: Primary Care Provider Call non-emergency contact if: you have any medication questions Follow-up/Referrals: Li Miner MD [Primary Care Provider] - 10/18/21 11:30 am Diet: Heart Healthy and Low Sodium (2gm) Fluids: 2000ml (8 cups) Addtl Attending Provider Instructions: Recommend folllowup with PCP in 1-2 weeks. Recommend followup with pulmonary in 1-2 weeks, Please take double dose of your lasix tonight and then resume regular dose tomorrow. Call your Primary Care doctor if any of the following symptoms or problems start or get worse: * Shortness of breath or difficulty breathing * Wake up at night short of breath * Chest pain * Cough * Swelling of your hands, feet, or legs * More fatigued or tired with your normal activity * Palpitations - sudden fast heart beats WEIGHT * Weigh yourself every morning after using the bathroom. * Use the same scale. * Wear the same amount of clothing. * Write your weight down on a chart. * Call your Primary Care doctor if you gain more than 2-3 pounds in 1-2 days. MEDICATIONS * Use this discharge instruction sheet for medication instructions. * Take your medications at the time your doctor ordered. * Do not skip a dose of your medicines. * If you miss a dose of medicine, take it as soon as possible, but DO NOT DOUBLE A DOSE. * Read your medicine information when you get home. * Know all of the side effects of your medicine. If in doubt, ask your pharmacist * Call your Primary Care doctor's office if you have any side effects. * Be sure all of your doctors know what medicine and herbs you take (including cold, flu, and herbal medicine). Take the following with you to your follow-up doctor appointments: * Weight Chart * Medication List * List of questions Do not drink excessive alcohol, beer or wine. Pending Studies at Discharge: No Stand-Alone Forms: My [facility] [employer], Smoking Cessation Medications and DC Order Prescriptions: Continued ipratropium-albuterol 0.5 mg-3 mg(2.5 mg base)/3 mL solution for nebulization 3 ml inhalation Q4H PRN (Reason: COPD) Qty: 180 RF: 5 Salonpas 3.1-10-6 % adhesive patch,medicated 1 patch topical QAM RF: 0 (DME) Oxygen Home Liters Per Minute See Rx Instructions .Route Qty: 1 RF: 0 furosemide 40 mg tablet 40 mg PO BID Qty: 60 RF: 3 amlodipine [Norvasc] 2.5 mg tablet 2.5 mg PO QAM Qty: 90 RF: 3 pantoprazole 40 mg tablet,delayed release (DR/EC) 40 mg PO BID Qty: 60 RF: 2 loperamide 2 mg capsule 2 mg PO Q4H PRN (Reason: diarrhea) Qty: 30 RF: 3 amiodarone 200 mg tablet 200 mg PO BID Qty: 180 RF: 3 metoprolol tartrate 25 mg tablet 12.5 mg PO BID Qty: 90 RF: 3 ofloxacin 0.3 % drops 5 drp otic (ear) BID 10 Days Qty: 10 RF: 0 mupirocin 2 % ointment See Rx Instructions topical BID Qty: 15 RF: 1 Myrbetriq 50 mg tablet extended release 24 hr 50 mg PO HS RF: 0 acetaminophen [Tylenol Extra Strength] 500 mg tablet 1,000 mg PO HS RF: 0 nystatin 100,000 unit/gram powder 1 applic topical BID Qty: 60 RF: 0 cinnamon bark 500 mg capsule 1,000 mg PO QAM RF: 0 omega-3 acid ethyl esters 1 gram capsule 1 cap PO QAM RF: 0 cholecalciferol (vitamin D3) 1,000 unit tablet 1,000 units PO QAM RF: 0 calcium carbonate-vitamin D3 [Calcium with Vitamin D] 600 mg(1,500mg) -400 unit tablet 1 tab PO QAM RF: 0 cyanocobalamin (vitamin B-12) 1,000 mcg capsule 1,000 mcg PO HS RF: 0 potassium chloride 10 mEq tablet,ER particles/crystals 10 meq PO QAM RF: 0 mometasone 50 mcg/actuation spray,non-aerosol 2 spray intranasal QAM RF: 0 budesonide 0.5 mg/2 mL suspension for nebulization 0.5 mg inhalation BID PRN (Reason: sob) RF: 0 Stiolto Respimat 2.5-2.5 mcg/actuation mist 2 puff inhalation QAM RF: 0 Eliquis 5 mg tablet 5 mg PO BID RF: 0 albuterol sulfate [Ventolin HFA] 90 mcg/actuation HFA aerosol inhaler 2 puff inhalation TID PRN (Reason: shortness of breath or wheezing) RF: 0 ondansetron HCl 4 mg tablet 4 mg PO QID PRN (Reason: Nausea) RF: 0 Discontinued Eliquis 5 mg tablet 5 mg PO BID Qty: 180 RF: 1 cefdinir 300 mg capsule 300 mg PO BID Qty: 20 RF: 0 No Action benzonatate 100 mg capsule 100 mg PO TID PRN (Reason: cough) Qty: 60 RF: 1 Discharge Orders: Discharge Order (Routine); Ordered 10/08/21 Ordered By: Rene Robertson Admission Data Admit Date/Time: 10/06/21 18:14 Attending Provider: Rene Robertson Admit Provider: Milton Wilkerson Primary Care Provider: Li Miner Other Providers: Rene Robertson Other Interventions: Discharge Summary Assessment (RN) Last Done: 10/08/21 15:20 Coding Level of Care Code D/C DAY MANAGEMENT >30 MINS Diagnoses Dyspnea on exertion R06.00 Chronic obstructive pulmonary disease J44.9 CHF (congestive heart failure) I50.9 Heart failure chronicity: acute Heart failure type: unspecified Anemia D64.9 Sleep apnea G47.30 Chronic respiratory failure with hypoxia J96.11 Paroxysmal atrial fibrillation I48.0 Hypertension I10 Hypertension type: unspecified History of lobectomy of lung Z90.2 History of stroke Z86.73 History of breast cancer Z85.3 Stage 3 chronic kidney disease N18.3 Non-Hodgkin lymphoma C85.90
== END 2021-10-08 17:36 | disposition home or self-care (01) | DRG 291 ==
LOC: ED 13:40 → 2N 18:14

== ENCOUNTER 2021-11-13 15:06 | Inpatient (IN) ==
--- NOTE | 2021-11-13 16:47 | History & Physical Report ---
Date of Service November 13, 2021 Assessment & Plan Admission and Anticipated Discharge Date Admission Date: November 13, 2021 History of Present Illness Primary Care Provider: Li Miner MD Marilyn Thao is an 80 year old female transfer from [facility] for acute congestive heart failure. Allergies Allergy/AdvReac Type Severity Reaction Status Date / Time dexamethasone Allergy Severe Shortness Verified 11/13/21 10:54 of Breath, throat constriction Sulfa (Sulfonamide Allergy Severe HIVES Verified 11/13/21 10:54 Antibiotics) adhesive tape Allergy Intermediate redness, Verified 11/13/21 10:54 irritation, peels skin off amoxicillin Allergy Unknown hives Verified 11/13/21 10:54 azithromycin Allergy Unknown Hives Verified 11/13/21 10:54 [From Zithromax Z-Siddhartha] clavulanic acid Allergy Unknown hives Verified 11/13/21 10:54 meperidine Allergy Unknown HIVES Verified 11/13/21 10:54 Penicillins Allergy Unknown hives Verified 11/13/21 10:54 cephalexin [From Keflex] Allergy Verified 11/13/21 10:54 ciprofloxacin [From Cipro] AdvReac Severe Vomiting Verified 11/13/21 10:54 codeine AdvReac Unknown NAUSEA AND Verified 11/13/21 10:54 VOMITING ketorolac AdvReac Unknown 'increased Verified 11/13/21 10:54 bleeding' Home Medications Medication Instructions Recorded Confirmed Type acetaminophen 500 mg tablet 1,000 mg PO HS tab 06/03/19 11/13/21 History (Tylenol Extra Strength) calcium carbonate 600 mg-vitamin 1 tab PO QAM 07/31/19 11/13/21 History D3 10 mcg (400 unit) tablet (Calcium with Vitamin D) cholecalciferol (vitamin D3) 25 1,000 units PO QAM 07/31/19 11/13/21 History mcg (1,000 unit) tablet cinnamon bark 500 mg capsule 1,000 mg PO QAM 07/31/19 11/13/21 History cyanocobalamin (vitamin B-12) 1,000 mcg PO HS 07/31/19 11/13/21 History 1,000 mcg capsule omega-3 acid ethyl esters 1 gram 1 cap PO QAM 07/31/19 11/13/21 History capsule ipratropium 0.5 mg-albuterol 3 mg 3 ml INHALATION Q4H PRN #180 ml 10/05/20 11/13/21 Rx (2.5 mg base)/3 mL nebulization soln mirabegron 50 mg tablet,extended 50 mg PO HS tab 10/14/20 11/13/21 History release 24 hr (Myrbetriq) potassium chloride 10 mEq 10 meq PO QAM 11/28/20 11/13/21 History tablet,extended release(part/cryst) budesonide 0.5 mg/2 mL suspension 0.5 mg INHALATION BID PRN 03/24/21 11/13/21 History for nebulization mometasone 50 mcg/actuation nasal 2 spray INTRANASAL QAM 03/24/21 11/13/21 History spray tiotropium 2.5 mcg-olodaterol 2.5 2 puff INHALATION QAM 03/24/21 11/13/21 History mcg/actuation mist for inhalation (Stiolto Respimat) camphor 3.1 %-methyl salicylate 10 1 patch TOPICAL QAM 04/18/21 11/13/21 History %-menthol 6 % topical patch (Salonpas) Oxygen Home #1 ea 05/11/21 11/13/21 Rx furosemide 40 mg tablet 40 mg PO BID #60 tab 06/12/21 11/13/21 Rx amlodipine 2.5 mg tablet (Norvasc) 2.5 mg PO QAM #90 tab 07/04/21 11/13/21 Rx loperamide 2 mg capsule 2 mg PO Q4H PRN #30 cap 08/15/21 11/13/21 Rx pantoprazole 40 mg tablet,delayed 40 mg PO BID #60 tab 08/15/21 11/13/21 Rx release amiodarone 200 mg tablet 200 mg PO BID #180 tab 09/04/21 11/13/21 Rx mupirocin 2 % topical ointment See Rx Instructions TOPICAL BID 09/08/21 11/13/21 Rx #15 g ofloxacin 0.3 % ear drops 5 drp OTIC (EAR) BID 10 Days #10 ml 09/08/21 11/13/21 Rx nystatin 100,000 unit/gram topical 1 applic TOPICAL BID #60 g 09/22/21 11/13/21 Rx powder metoprolol tartrate 25 mg tablet 12.5 mg PO BID #90 tab 10/02/21 11/13/21 Rx albuterol sulfate 90 mcg/actuation 2 puff INHALATION TID PRN 10/06/21 11/13/21 History aerosol inhaler (Ventolin HFA) apixaban 5 mg tablet (Eliquis) 5 mg PO BID 10/06/21 11/13/21 History benzonatate 100 mg capsule 100 mg PO TID PRN #60 cap 10/09/21 11/13/21 Rx ondansetron 4 mg disintegrating 4 mg PO Q6H PRN #30 tab 10/25/21 11/13/21 Rx tablet Past Med/Surg History Medical History Acid reflux disease Anemia Anticoagulant long-term use Chronic otitis media of left ear with effusion Chronic pain of left upper extremity Chronic respiratory failure with hypoxia Degenerative disc disease Dyspnea on exertion Esophageal dysmotility ETD (eustachian tube dysfunction) Folic acid deficiency History of breast cancer History of stroke Hypertension Lumbar stenosis with neurogenic claudication Nephrolithiasis Nocturnal hypoxia Non-Hodgkin lymphoma On home O2 Osteoarthritis Paroxysmal atrial fibrillation Peripheral neuropathy Pneumonia Port-A-Cath in place Rosacea Scoliosis Spinal stenosis Stage 3 chronic kidney disease Thrombocytopenia Thyroid nodule Vitamin D deficiency Surgical History H/O colonoscopy H/O dilation and curettage H/O: hysterectomy History of appendectomy History of back surgery History of bladder surgery History of bronchoscopy History of cardioversion History of esophagogastroduodenoscopy (EGD) History of lobectomy of lung History of mastectomy History of tonsillectomy S/P cervical spinal fusion S/P cholecystectomy S/P thyroid biopsy Family History Mother Coronary heart disease Cancer Atrial fibrillation Heart disease Hypertension Father Coronary heart disease Myocardial infarction Cancer Heart disease Hypertension Aunt Cancer Brother Prostate cancer Son Bladder cancer Other No family history of adverse response to anesthesia No family history of bleeding disorder Stroke Denies family history of Ovarian cancer Hearing loss Kidney disease Breast cancer Colorectal cancer Asthma Social History Smoking Status: Never smoker Second Hand Exposure: No; Hx Alcohol Use: No Hx Substance Use: No Preferred Language: Lao Communication Ability: Effective Visual Impairment: Partially Limited Hearing Ability: Normal 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 Beliefs That Will Affect Care: None marital status: / Current Living Situation: Family Current Living Situation Comment: [place] current occupational status: retired How many Children do You have: 1 Other Information That Helps Us Care for You: No Feels Safe at Home: Yes Safety Concerns: Feels Safe At This Time Childhood Exposure to Second-Hand Smoke: No caffeine: Yes (daria mariana, pepsi) Dental Care, Regularly: No Physical Activity Frequency: 1-2 Times per Week Physical Activity Frequency Comment: Physical therapy at home Seatbelt Use: always Sunscreen Use: No Do you think of yourself as: straight/heterosexual Assistive Devices: Oxygen - Continuous Results & Data Results & Data ([facility]) Vital Signs (Past 12 Hours) Vital Signs Temp Pulse Resp BP Pulse Ox 11/13/21 16:44 36.7 C 74 18 131/75 100 Code Status & VTE Plan VTE Prophylaxis Plan VTE Prophylaxis will be ordered: Yes PG Care Time/CCT Total # of Minutes Spent Total Time Spent with Patient: Total time spent is greater than 50% in coordination of care (as documented) at patient's floor/unit and/or counseling patient: Coding
--- NOTE | 2021-11-13 17:24 | XRay Report ---
XR chest 1V portable CLINICAL HISTORY: CHF TECHNIQUE: Single frontal radiograph of the chest was obtained. Comparison: Comparison is made to chest radiograph 10/23/2021 FINDINGS: A port catheter is seen. Posterior fixation hardware is seen in the spine. Right axillary clips are s een. Calcified aortic knob is seen. The lungs are clear. No evidence of pleural effusion or pneumotho rax. IMPRESSION: No acute chest disease. ACT 112: Negative or not required by law. Electronically signed by: Aman Hernandez M.D. 11/13/2021 5:23 PM
[2021-11-13 17:45] LABS: INR 1.1 (0.9-1.1); Partial Thromboplastin Time 26.8 Seconds (21.0-31.0); Prothrombin Time 12.1 Seconds (9.0-12.0)
[2021-11-13 17:59] LABS: Troponin I High Sensitivity 17.2 pg/ml (0-14)
[2021-11-13 18:03] LABS: Hematocrit (blood only) 22.3 % (37-47); Hemoglobin 6.7 g/dL (12.0-16.0); Mean Corpuscular Hemoglobin 26.8 pg (25-34); Mean Corpuscular Volume 89.2 fL (80-100); Mean Platelet Volume 9.2 fL (7.4-10.4); Platelet Count 171 K/uL (130-400); White Blood Count 6.34 K/uL (4.8-10.8)
[2021-11-13 18:05] LABS: Albumin Globulin Ratio 1.5 (0.9-2); Albumin Level 3.6 gm/dl (3.4-5.0); BUN Creatinine Ratio 13.8 (10-20); Creatinine Clr Calc Pharmacy 62.2 ml/min; Est GFR (African American) 44.6 ml/min; Est GFR (Non-African American) 38.4 ml/min; Globulin 2.4 gm/dl (2.5-4.0); Magnesium 1.6 mg/dl (1.7-2.4); Potassium 4.2 mmol/L (3.5-5.1)
[2021-11-13 18:17] LABS: Basophils # (auto) 0.02 K/uL (0-0.2); Basophils % (auto) 0.3 %; Eosinophils # (auto) 0.05 K/uL (0-0.5); Eosinophils % (auto) 0.8 %; Hypochromasia Present; Immature Granulocytes # (auto) 0.03 K/uL (0.00-0.02); Immature Granulocytes % (auto) 0.5 %; Lymphocytes # (auto) 1.47 K/uL (1.2-3.4); Lymphocytes % (auto) 23.2 %; Monocytes % (auto) 14.2 %; Neutrophils # (auto) 3.87 K/uL (1.4-6.5); Stomatocytes 1+
--- NOTE | 2021-11-13 18:32 | History & Physical Report ---
Date of Service November 13, 2021 Assessment & Plan (1) Left knee pain: Plan: Acute left knee pain with edema- - DDX: infectious vs. hemarthrosis vs. gout/pseudogout - evaluate with CT scan with decrease in her HGB level- will hold - without erythema or warmth - Duplex from OSH reported as negative- on chart - CT scan of left knee pending for effusion evaluation - do not think this is blood as she has no traumatic injury - Gout vs. pseudogout is possible without elevated WBC- PCT negative, CRP and ESR ordered - pending above consider orthopaedics consultation for sampling/draining effusion (2) Anemia: Plan: Acute on chronic without evidence of acute blood loss - downtrending from 7.5 to 6.7 s/p iron infusion last week - Will transfuse 2 units of PRBC - CT A/P negative for any fluid collection/occult blood loss in retroperitoneal space - As above with left knee (3) Elevated troponin: Plan: Drawn on admission in relation to her dyspnea - she is without chest pain - Likely type II mismatch with anemia and increased HR secondary to anemia and acute illness - trend HScTNI until downtrends (4) Paroxysmal atrial fibrillation: Plan: Remains on Amiodarone without conversion as well as eliquis - Patinet states she takes 2 (200mg tabs BID)- for 400mg this would be within her time frame for loading dose, will keep 400mg BID - clarify dose/need - was planning for cardioversion as outpatient but appears to have gotten postponed secondary to influenza (5) CHF (congestive heart failure): Plan: HFpEF - not an acute exacerbation - unilateral leg swelling - some generalized edema to the abdomen - dyspnea likely related to anemia - Continue lasix- patient states they changed this to 80mg BID last visit- will give 80mg tonight following her 2 units of PRBC - re-evaluate daily fluid volume status with dosing and adjust times so not getting diuretics at bed-time (6) Ear pain: Plan: Chronic otitis media- she remains on OTIC drops following myringotomy by ENT - She continues with right ear pain and continues on her ofloxacin drops utnil follow up next week (7) Dyslipidemia: Plan: On [place] 3- hold (8) Lymphoma: Plan: Non-hodkins history of- completed radiation/chemotherapy - she is without current treatment and follows with [facility] (9) Chronic obstructive pulmonary disease: Plan: Stable on home oxygen- this is not an acute exacerbation of her COPD - Continue home inhalers and oxygen (10) Hypomagnesemia: Plan: Replete mag - 1.6 with 3 GM of magnesium sulfate (11) Nausea: Plan: Chronic following her chemotherapy for breast cancer - has gotten worse over the past month or so- also noted that this may be related to the same time of oral potassium - evlaute symtpoms and follow - oral potassium on hold for daily replacement by primary service as needed Admission and Anticipated Discharge Date Admission Date: November 13, 2021 History of Present Illness Chief Complaint: Left knee pain Primary Care Provider: Li Miner MD 80 YOF with medical history of: Iron deficiency anemia, non-Hodgkin lymphoma (remission since 2017), GERD, Afib (on Eliquis), HTN, CVA, lumbar stenosis, nocturnal hypoxia, home oxygen use, CKD IIIb. Patient comes to the EMD today secondary to left knee pain and feeling more dyspneic and tired at home. The patient originally called her PCP this morning and was evaluated for her knee pain and swelling. She was deferred to the EMD for pain control and workup of her left leg. The patient originally went to [facility]. She was evaluated in the EMD there with CXR, labs, and Ultrasound of her left leg and plain films. She was noted to have small joint effusion of the left knee and medial and lateral menisci chondrocalcinosis. The patient was direct admitted from [place] for her anemia to medical telemetry. The patient arrived with history of left leg pain over the past 2-3 days; she had onset of left hip pain that then radiated down to her left knee, where her swelling of her left knee got worse to the point where she could not walk on it. This remains in her left hip down to her knee with pain and edema. There is no erythema, she reports that she has not fallen or had any other trauma- her left lower extremity duplex from above is reported as no evidence of acute DVT in the lower extremity. She endorses that she has not really felt better since her iron infusion of ferumoxytol, she thought this was related to her infusion. Overall the patient's leg is swollen with pain to the knee above and below as well as pain in her left hip. She denies any changes in her bowels and no evidence of acute bleeding. Her HGB on arrival was 6.7. Will obtain CT of the abdomen and pelvis to rule out occult retroperitoneal bleed as well as her left hip, and will obtain CT of the left knee. Transfuse 2 units PRBC. Follow HScTNI. COVID test reported as negative from OSH- test pending on admission She did have influenza in September. Allergies Allergy/AdvReac Type Severity Reaction Status Date / Time dexamethasone Allergy Severe Shortness Verified 11/13/21 10:54 of Breath, throat constriction Sulfa (Sulfonamide Allergy Severe HIVES Verified 11/13/21 10:54 Antibiotics) adhesive tape Allergy Intermediate redness, Verified 11/13/21 10:54 irritation, peels skin off amoxicillin Allergy Unknown hives Verified 11/13/21 10:54 azithromycin Allergy Unknown Hives Verified 11/13/21 10:54 [From Zithromax Z-Siddhartha] clavulanic acid Allergy Unknown hives Verified 11/13/21 10:54 meperidine Allergy Unknown HIVES Verified 11/13/21 10:54 Penicillins Allergy Unknown hives Verified 11/13/21 10:54 cephalexin [From Keflex] Allergy Verified 11/13/21 10:54 ciprofloxacin [From Cipro] AdvReac Severe Vomiting Verified 11/13/21 10:54 codeine AdvReac Unknown NAUSEA AND Verified 11/13/21 10:54 VOMITING ketorolac AdvReac Unknown 'increased Verified 11/13/21 10:54 bleeding' Home Medications Medication Instructions Recorded Confirmed Type acetaminophen 500 mg tablet 1,000 mg PO HS tab 06/03/19 11/13/21 History (Tylenol Extra Strength) calcium carbonate 600 mg-vitamin 1 tab PO QAM 07/31/19 11/13/21 History D3 10 mcg (400 unit) tablet (Calcium with Vitamin D) cholecalciferol (vitamin D3) 25 1,000 units PO QAM 07/31/19 11/13/21 History mcg (1,000 unit) tablet cinnamon bark 500 mg capsule 1,000 mg PO QAM 07/31/19 11/13/21 History cyanocobalamin (vitamin B-12) 1,000 mcg PO HS 07/31/19 11/13/21 History 1,000 mcg capsule omega-3 acid ethyl esters 1 gram 1 cap PO QAM 07/31/19 11/13/21 History capsule ipratropium 0.5 mg-albuterol 3 mg 3 ml INHALATION Q4H PRN #180 ml 10/05/20 11/13/21 Rx (2.5 mg base)/3 mL nebulization soln mirabegron 50 mg tablet,extended 50 mg PO HS tab 10/14/20 11/13/21 History release 24 hr (Myrbetriq) potassium chloride 10 mEq 10 meq PO QAM 11/28/20 11/13/21 History tablet,extended release(part/cryst) budesonide 0.5 mg/2 mL suspension 0.5 mg INHALATION BID PRN 03/24/21 11/13/21 History for nebulization mometasone 50 mcg/actuation nasal 2 spray INTRANASAL QAM 03/24/21 11/13/21 History spray tiotropium 2.5 mcg-olodaterol 2.5 2 puff INHALATION QAM 03/24/21 11/13/21 History mcg/actuation mist for inhalation (Stiolto Respimat) Oxygen Home #1 ea 05/11/21 11/13/21 Rx amlodipine 2.5 mg tablet (Norvasc) 2.5 mg PO QAM #90 tab 07/04/21 11/13/21 Rx loperamide 2 mg capsule 2 mg PO Q4H PRN #30 cap 08/15/21 11/13/21 Rx pantoprazole 40 mg tablet,delayed 40 mg PO BID #60 tab 08/15/21 11/13/21 Rx release mupirocin 2 % topical ointment See Rx Instructions TOPICAL BID 09/08/21 11/13/21 Rx #15 g nystatin 100,000 unit/gram topical 1 applic TOPICAL BID #60 g 09/22/21 11/13/21 Rx powder metoprolol tartrate 25 mg tablet 12.5 mg PO BID #90 tab 10/02/21 11/13/21 Rx albuterol sulfate 90 mcg/actuation 2 puff INHALATION TID PRN 10/06/21 11/13/21 History aerosol inhaler (Ventolin HFA) apixaban 5 mg tablet (Eliquis) 5 mg PO BID 10/06/21 11/13/21 History ondansetron 4 mg disintegrating 4 mg PO Q6H PRN #30 tab 10/25/21 11/13/21 Rx tablet amiodarone 200 mg tablet 400 mg PO BID 11/13/21 11/13/21 History furosemide 40 mg tablet 80 mg PO BID 11/13/21 11/13/21 History Past Med/Surg History Medical History Acid reflux disease Anemia Anticoagulant long-term use Chronic otitis media of left ear with effusion Chronic pain of left upper extremity SHOULDER Chronic respiratory failure with hypoxia Degenerative disc disease Dyspnea on exertion Esophageal dysmotility ETD (eustachian tube dysfunction) Folic acid deficiency History of breast cancer right breast cancer -- CHEMO. sx. History of stroke 2014. Small chronic lacunar infarct noted on 03/[address] no residual. Hypertension Lumbar stenosis with neurogenic claudication Nephrolithiasis HX OF Nocturnal hypoxia Non-Hodgkin lymphoma 2017 - CHEMO AND RADIATION On home O2 3 LPM cont Osteoarthritis Paroxysmal atrial fibrillation hx mult cardioversions; on eliquis; follows with Dr. Sullivan Peripheral neuropathy Pneumonia Port-A-Cath in place HAS IT FLUSHED EVERY 6 WEEKS Rosacea Scoliosis Spinal stenosis Stage 3 chronic kidney disease Thrombocytopenia Thyroid nodule Vitamin D deficiency Surgical History H/O colonoscopy H/O dilation and curettage multiple H/O: hysterectomy EVELIA History of appendectomy History of back surgery lumbar fusion History of bladder surgery bladder tack History of bronchoscopy History of cardioversion History of esophagogastroduodenoscopy (EGD) History of lobectomy of lung Left upper lobe r/t nodule (granuloma) History of mastectomy right with lymph node removal History of tonsillectomy S/P cervical spinal fusion x2 () unsure of levels. ROM WNL S/P cholecystectomy S/P thyroid biopsy negative Family History Mother Coronary heart disease Cancer Atrial fibrillation Heart disease Hypertension Father Coronary heart disease Myocardial infarction Cancer Heart disease Hypertension Aunt Cancer Brother Prostate cancer Son Bladder cancer Other No family history of adverse response to anesthesia No family history of bleeding disorder Stroke Denies family history of Ovarian cancer Hearing loss Kidney disease Breast cancer Colorectal cancer Asthma Social History (Reviewed 11/13/21 @ 19:17 by ESAU Reynoso Smoking Status: Never smoker Second Hand Exposure: No; Hx Alcohol Use: No Hx Substance Use: No Preferred Language: Tunisian Communication Ability: Effective Visual Impairment: Partially Limited Hearing Ability: Normal Ncr Operator Required: No Beliefs That Will Affect Care: None marital status: / Current Living Situation: Family Current Living Situation Comment: [place] current occupational status: retired How many Children do You have: 1 Other Information That Helps Us Care for You: No Feels Safe at Home: Yes Safety Concerns: Feels Safe At This Time Childhood Exposure to Second-Hand Smoke: No caffeine: Yes (daria mariana, pepsi) Dental Care, Regularly: No Physical Activity Frequency: 1-2 Times per Week Physical Activity Frequency Comment: Physical therapy at home Seatbelt Use: always Sunscreen Use: No Do you think of yourself as: straight/heterosexual Assistive Devices: Oxygen - Continuous Review of Systems Review of Systems: REVIEW OF SYSTEMS: Constitutional: No fever, sweats or chills Eyes: No diplopia, no worsening or blurred vision ENT: normal hearing, no trouble swallowing Respiratory: No cough, sputum, dyspnea at rest or on exertion Cardiovascular: No chest pain, tightness or palpitations Abdomen: No pain, nausea, vomiting, diarrhea or constipation Musculoskeletal: (+) left knee joint pain and swelling, no calf pain, swelling Neurologic: No weakness, numbness/tingling, or balance problems Psychiatric: No anxiety or depression Skin: No rash or itch Physical Exam Physical Exam: PHYSICAL EXAM: General: awake, alert, no apparent distress Head: Normocephalic, atraumatic ENT: PERRL, EOMI, no pharyngeal exudate, mucous membranes moist Neuro: AAO x 3, speech clear and appropriate, strength intact bilaterally 5/5, sensation intact and equal all extremities and dermatomes, no pronator drift Chest: equal rise and fall of the chest, no accessory muscle use, no heaves or thrills, Clear to auscultation, on room air, Cardiac: irregular rate and rhythm, S1S2, skin warm dry, cap refill <3 seconds, peripheral pulses +2 no JVD, no murmur, Edema to the left knee and quad GI: NABS x 4 quadrants, soft, nontender to palpation, no rebound, guarding or tenderness : Spontaneously voiding, no pain, no CVA tenderness, Extremities: Normal inspection, no peripheral edema or erythema, calfs nontender to palpation Psych: Normal mood and affect Skin: no rash or erythema Results & Data Results & Data ([facility]) Vital Signs (Past 12 Hours) Vital Signs Temp Pulse Resp BP Pulse Ox 11/13/21 16:53 85 11/13/21 16:44 36.7 C 74 18 131/75 100 Laboratory Results Abnormal lab results 11/13/21 11/13/21 11/13/21 Range/Units 17:08 17:08 17:08 RBC 2.50 L (4.2-5.4) M/uL Hgb 6.7 L* (12.0-16.0) g/dL Hct 22.3 L (37-47) % MCHC 30.0 L (32-36) g/dL RDW Std Deviation 54.0 H (36.4-46.3) fL RDW Coeff of Zackary 17.0 H (11.5-14.5) % Harney # (Auto) 0.90 H (0.11-0.59) K/uL Immature Gran # (Auto) 0.03 H (0.00-0.02) K/uL PT 12.1 H (9.0-12.0) Seconds Creatinine 1.30 H (0.6-1.2) mg/dl Glucose 105 H (70-99(Fasting)) mg/dl Magnesium 1.6 L (1.7-2.4) mg/dl Troponin I High Sens 17.2 H (0-14) pg/ml B-Natriuretic Peptide (0-100) pg/ml Globulin 2.4 L (2.5-4.0) gm/dl Crossmatch 11/13/21 11/13/21 Range/Units 17:08 18:47 RBC (4.2-5.4) M/uL Hgb (12.0-16.0) g/dL Hct (37-47) % MCHC (32-36) g/dL RDW Std Deviation (36.4-46.3) fL RDW Coeff of Zackary (11.5-14.5) % Harney # (Auto) (0.11-0.59) K/uL Immature Gran # (Auto) (0.00-0.02) K/uL PT (9.0-12.0) Seconds Creatinine (0.6-1.2) mg/dl Glucose (70-99(Fasting)) mg/dl Magnesium (1.7-2.4) mg/dl Troponin I High Sens (0-14) pg/ml B-Natriuretic Peptide 724 H (0-100) pg/ml Globulin (2.5-4.0) gm/dl Crossmatch See Detail Diagnostic Findings Chest X-Ray 11/13/21 16:41 XR chest 1V portable CLINICAL HISTORY: CHF TECHNIQUE: Single frontal radiograph of the chest was obtained. Comparison: Comparison is made to chest radiograph 10/23/2021 FINDINGS: A port catheter is seen. Posterior fixation hardware is seen in the spine. Right axillary clips are seen. Calcified aortic knob is seen. The lungs are clear. No evidence of pleural effusion or pneumothorax. IMPRESSION: No acute chest disease. ACT 112: Negative or not required by law. Electronically signed by: Aman Hernandez M.D. 11/13/2021 5:23 PM Abdomen/Pelvis CT 11/13/21 18:08 CT abd pelvis wo con CLINICAL HISTORY: evaluate retroperitoneal bleed/fluid collection TECHNIQUE: Helical axial images of the abdomen and pelvis were obtained. Automated dose lowering techniques and/or adjustment according to patient size were utilized for this exam. This exam was performed without intravenous contrast. CT DOSE: 1147.03 mGy.cm COMPARISON: Comparison is made to CT abdomen pelvis 02/27/2021 FINDINGS: Lower chest: Relative hypodensity of the blood pool and the heart compatible with anemia. Cardiomegaly and biatrial enlargement is seen. Liver: Unremarkable. No focal lesions are seen. Gallbladder and biliary tree: Patient is status post cholecystectomy. No intra- or extrahepatic biliary ductal dilation. Pancreas: Unremarkable, no focal lesions. Spleen: Unremarkable. Adrenals: Unremarkable. Kidneys and ureters: Subcentimeter hypodensities are too small to characterize. Bladder: Unremarkable. Reproductive organs: Unremarkable. Bowel: A hiatal hernia is seen. Patient is status post appendectomy. Lymph nodes Retroperitoneal: Unremarkable. Mesenteric: Unremarkable. Pelvic: Unremarkable. Peritoneum: Normal. Vessels: Atherosclerotic calcifications are seen. Abdominal wall: Left fat containing inguinal hernia. Bones: Posterior fixation hardware is seen. Degenerative changes are seen in the spine. IMPRESSION: No acute abnormality and in particular no evidence of retroperitoneal hemorrhage. ACT 112: Negative or not required by law. Electronically signed by: Aman Hernandez M.D. 11/13/2021 7:[address] knee LT wo con CLINICAL HISTORY: evaluate fluid collection TECHNIQUE: Multidetector row helical CT of the right knee was performed without intravenous contrast. Coronal and sagittal reformations were obtained. Automated dose lowering techniques and/or adjustment according to patient size were utilized for this examination. CT DOSE: 249.26 mGy.cm Comparison: None available at the time of this dictation. FINDINGS: The osseous structures are without fracture or dislocation. Degenerative changes are seen in the knee joint. There is a complex suprapatellar effusion measuring greater than simple fluid density. The soft tissues are unremarkable. IMPRESSION: Complex suprapatellar effusion measuring greater than simple fluid density. This may reflect infectious/inflammatory etiology or hemarthrosis. No acute fracture is seen in this patient denies recent trauma. If clinical concern remains, aspiration of joint fluid can be performed. Medications Administered Home Medications acetaminophen 500 mg tablet (Tylenol Extra Strength) 1,000 mg PO HS tab 06/03/19 [History Confirmed 11/13/21] calcium carbonate 600 mg-vitamin D3 10 mcg (400 unit) tablet (Calcium with Vitamin D) 1 tab PO QAM 07/31/19 [History Confirmed 11/13/21] cholecalciferol (vitamin D3) 25 mcg (1,000 unit) tablet 1,000 units PO QAM 07/31/19 [History Confirmed 11/13/21] cinnamon bark 500 mg capsule 1,000 mg PO QAM 07/31/19 [History Confirmed 11/13/21] cyanocobalamin (vitamin B-12) 1,000 mcg capsule 1,000 mcg PO HS 07/31/19 [History Confirmed 11/13/21] omega-3 acid ethyl esters 1 gram capsule 1 cap PO QAM 07/31/19 [History Confi rmed 11/13/21] ipratropium 0.5 mg-albuterol 3 mg (2.5 mg base)/3 mL nebulization soln 3 ml INHALATION Q4H PRN #180 ml 10/05/20 [Rx Confirmed 11/13/21] mirabegron 50 mg tablet,extended release 24 hr (Myrbetriq) 50 mg PO HS tab 10/14/20 [History Confirmed 11/13/21] potassium chloride 10 mEq tablet,extended release(part/cryst) 10 meq PO QAM 11/28/20 [History Confirmed 11/13/21] budesonide 0.5 mg/2 mL suspension for nebulization 0.5 mg INHALATION BID PRN 03/24/21 [History Confirmed 11/13/21] mometasone 50 mcg/actuation nasal spray 2 spray INTRANASAL QAM 03/24/21 [History Confirmed 11/13/21] tiotropium 2.5 mcg-olodaterol 2.5 mcg/actuation mist for inhalation (Stiolto Respimat) 2 puff INHALATION QAM 03/24/21 [History Confirmed 11/13/21] camphor 3.1 %-methyl salicylate 10 %-menthol 6 % topical patch (Salonpas) 1 patch TOPICAL QAM 04/18/21 [History Confirmed 11/13/21] Oxygen Home #1 ea 05/11/21 [Rx Confirmed 11/13/21] furosemide 40 mg tablet 40 mg PO BID #60 tab 06/12/21 [Rx Confirmed 11/13/21] amlodipine 2.5 mg tablet (Norvasc) 2.5 mg PO QAM #90 tab 07/04/21 [Rx Confirmed 11/13/21] loperamide 2 mg capsule 2 mg PO Q4H PRN #30 cap 08/15/21 [Rx Confirmed 11/13/21] pantoprazole 40 mg tablet,delayed release 40 mg PO BID #60 tab 08/15/21 [Rx Confirmed 11/13/21] amiodarone 200 mg tablet 200 mg PO BID #180 tab 09/04/21 [Rx Confirmed 11/13/21] mupirocin 2 % topical ointment See Rx Instructions TOPICAL BID #15 g 09/08/21 [Rx Confirmed 11/13/21] ofloxacin 0.3 % ear drops 5 drp OTIC (EAR) BID 10 Days #10 ml 09/08/21 [Rx Confirmed 11/13/21] nystatin 100,000 unit/gram topical powder 1 applic TOPICAL BID #60 g 09/22/21 [Rx Confirmed 11/13/21] metoprolol tartrate 25 mg tablet 12.5 mg PO BID #90 tab 10/02/21 [Rx Confirmed 11/13/21] albuterol sulfate 90 mcg/actuation aerosol inhaler (Ventolin HFA) 2 puff INHALATION TID PRN 10/06/21 [History Confirmed 11/13/21] apixaban 5 mg tablet (Eliquis) 5 mg PO BID 10/06/21 [History Confirmed 11/13/21] benzonatate 100 mg capsule 100 mg PO TID PRN #60 cap 10/09/21 [Rx Confirmed 11/13/21] ondansetron 4 mg disintegrating tablet 4 mg PO Q6H PRN #30 tab 10/25/21 [Rx Confirmed 11/13/21] Active Medications Acetaminophen (Acetaminophen 325 Mg Tab) 650 mg PO Q4H PRN PRN Reason: Pain or Fever Stop: 12/13/21 16:40 Last Admin: 11/13/21 18:49 Dose: 650 mg Documented by: Sodium Chloride (Nss) 250 mls @ 15 mls/hr IV .[id number] PRN PRN Reason: For Transfusion Stop: 11/14/21 04:46 Magnesium Sulfate/Dextrose (Magnesium Sulfate / D5w) 1 gm in 100 mls @ 50 mls/hr IV Q2H [place] Stop: 11/14/21 01:14 ECG Additional Comments: Atrial fibrillation Nonspecific ST and T wave abnormality Abnormal ECG When compared with ECG of 23-OCT-2021 18:08, Criteria for Septal infarct are no longer Present Nonspecific T wave abnormality, worse in Lateral leads QT has shortened Code Status & VTE Plan Code Status CODE: DNR/DNI VTE: SCDs, Hold chemoprophylaxis until bleeding ruled in/out VTE Prophylaxis Plan VTE Prophylaxis will be ordered: Yes Supervising Physician Co-Signing Physician Notes I personally saw and examined the patient. I verified all waters points and agree with KARIME Suero with the following exceptions and/or additions: 80 year old female transfer from [facility] due to shortness of breath with anemia and CHF exacerbation. However on arrival here she reports her main concern if left knee pain. No trauma. No inflammatory arthritis history. O/E HS, regular rate, irregular rhythm, no murmurs, Chest CTAB, No groin pain on le ft leg movement but significant knee pain. A/P Left knee pain - unclear etiology. ESR/CRP WNL. CT left knee concerning for hemarthosis ?related to Eliquis without trauma. Consult orthopedics Chronic blood loss anemia - Prior FOB positive. CT A/P without etiology. Not significant reduced from her baseline but trending down and now below 7 with associated shortness of breath. Patient consented for blood. Will give 2 units packed RBCs now and repeat CBC in AM. Chronic CHF - do not suspect acute exacerbation but likely to need increased dose of Lasix as transfusions given. PG Care Time/CCT Total # of Minutes Spent Total Time Spent with Patient: Total time spent is greater than 50% in coordination of care (as documented) at patient's floor/unit and/or counseling patient: Coding Level of Care Code 85000 Initial Inpt Care Lvl 3 Diagnoses Left knee pain M25.562 Anemia D64.9 Elevated troponin R77.8 CHF (congestive heart failure) I50.9 Heart failure chronicity: acute on chronic Heart failure type: unspecified Dyslipidemia E78.5 Lymphoma C85.90 Lymphoma site: unspecified region Lymphoma type: non-Hodgkin Non-Hodgkin lymphoma type: unspecified type Chronic obstructive pulmonary disease J44.9 Hypomagnesemia E83.42 Paroxysmal atrial fibrillation I48.0 Ear pain H92.09 Nausea R11.0 (1) CHF (congestive heart failure) Heart failure chronicity: acute on chronic Heart failure type: unspecified Qualified Code(s): I50.9 - Heart failure, unspecified (2) Lymphoma Lymphoma site: unspecified region Lymphoma type: non-Hodgkin Non-Hodgkin lymphoma type: unspecified type Qualified Code(s): C85.90 - Non-Hodgkin lymphoma, unspecified, unspecified site
[2021-11-13] MEDS ORDERED: SODIUM CHLORIDE 0.9% 250 ML IV PRN (18:46)
[2021-11-13] MEDS: ACETAMINOPHEN 325 MG TAB PO PRN (18:49)
--- NOTE | 2021-11-13 19:14 | CT Scan Report ---
CT abd pelvis wo con CLINICAL HISTORY: evaluate retroperitoneal bleed/fluid collection TECHNIQUE: Helical axial images of the abdomen and pelvis were obtained. Automated dose lowering tech niques and/or adjustment according to patient size were utilized for this exam. This exam was perfor med without intravenous contrast. CT DOSE: 1147.03 mGy.cm COMPARISON: Comparison is made to CT abdomen pelvis 02/27/2021 FINDINGS: Lower chest: Relative hypodensity of the blood pool and the heart compatible with anemia. Cardiomega ly and biatrial enlargement is seen. Liver: Unremarkable. No focal lesions are seen. Gallbladder and biliary tree: Patient is status post cholecystectomy. No intra- or extrahepatic bilia ry ductal dilation. Pancreas: Unremarkable, no focal lesions. Spleen: Unremarkable. Adrenals: Unremarkable. Kidneys and ureters: Subcentimeter hypodensities are too small to characterize. Bladder: Unremarkable. Reproductive organs: Unremarkable. Bowel: A hiatal hernia is seen. Patient is status post appendectomy. Lymph nodes Retroperitoneal: Unremarkable. Mesenteric: Unremarkable. Pelvic: Unremarkable. Peritoneum: Normal. Vessels: Atherosclerotic calcifications are seen. Abdominal wall: Left fat containing inguinal hernia. Bones: Posterior fixation hardware is seen. Degenerative changes are seen in the spine. IMPRESSION: No acute abnormality and in particular no evidence of retroperitoneal hemorrhage. ACT 112: Negative or not required by law. Electronically signed by: Aman Hernandez M.D. 11/13/2021 7:12 PM
--- NOTE | 2021-11-13 19:36 | CT Scan Report ---
CT knee LT wo con CLINICAL HISTORY: evaluate fluid collection TECHNIQUE: Multidetector row helical CT of the right knee was performed without intravenous contrast. Coronal and sagittal reformations were obtained. Automated dose lowering techniques and/or adjustmen t according to patient size were utilized for this examination. CT DOSE: 249.26 mGy.cm Comparison: None available at the time of this dictation. FINDINGS: The osseous structures are without fracture or dislocation. Degenerative changes are seen in the knee joint. There is a complex suprapatellar effusion measuring greater than simple fluid density. The so ft tissues are unremarkable. IMPRESSION: Complex suprapatellar effusion measuring greater than simple fluid density. This may reflect infectio us/inflammatory etiology or hemarthrosis. No acute fracture is seen in this patient denies recent tra nicolás. If clinical concern remains, aspiration of joint fluid can be performed. ACT 112: Negative or not required by law. Electronically signed by: Aman Hernandez M.D. 11/13/2021 7:33 PM
[2021-11-13] MEDS: MAGNESIUM SULFATE / D5W 1 GM/100 ML BAG IV SCH ×3 (20:00→23:38)
[2021-11-13] MEDS ORDERED: ALBUTEROL HFA 8 GM INHALER INH PRN (20:14)
[2021-11-13] MEDS ORDERED: BUDESONIDE 0.5 MG/2 ML VIAL (PULMICORT) INH PRN (20:14)
[2021-11-13] MEDS ORDERED: ALBUT/IPRATROP 3MG/0.5MG NEB 3 ML VIAL INH PRN (20:14)
[2021-11-13] MEDS ORDERED: ONDANSETRON 4 MG OD TAB PO PRN (20:14)
[2021-11-13] MEDS: MIRABEGRON ER 25 MG TAB PO SCH (21:11)
[2021-11-13] MEDS: FUROSEMIDE 80 MG TAB PO SCH (21:11)
[2021-11-13] MEDS: PANTOprazole 40 MG TAB PO SCH (21:11)
[2021-11-13] MEDS: METOPROLOL TARTRATE 25 MG TAB PO SCH (21:12)
[2021-11-13] MEDS: CYANOCOBALAMIN (B-12) 500 MCG TABLET PO SCH (21:12)
[2021-11-13] MEDS: AMIODARONE 200 MG TAB PO SCH (21:13)
[2021-11-13] MEDS: NYSTATIN POWDER 15GM BTL EXT SCH (21:13)
[2021-11-13] MEDS: ACETAMINOPHEN 500 MG TAB PO SCH (21:14)
[2021-11-14] MEDS: HEPARIN 100 UNIT/ML 5ML FLUSH FLUSH PRN ×2 (01:28→06:02)
[2021-11-14 07:00] LABS: Basophils # (auto) 0.03 K/uL (0-0.2); Basophils % (auto) 0.4 %; Eosinophils # (auto) 0.09 K/uL (0-0.5); Eosinophils % (auto) 1.3 %; Hemoglobin 9.4 g/dL (12.0-16.0); Immature Granulocytes # (auto) 0.02 K/uL (0.00-0.02); Immature Granulocytes % (auto) 0.3 %; Lymphocytes # (auto) 1.58 K/uL (1.2-3.4); Lymphocytes % (auto) 22.4 %; Mean Corpuscular Hemoglobin 27.7 pg (25-34); Mean Corpuscular Hgb Conc 31.3 g/dL (32-36); Mean Corpuscular Volume 88.5 fL (80-100); Mean Platelet Volume 9.8 fL (7.4-10.4); Monocytes # (auto) 1.14 K/uL (0.11-0.59); Monocytes % (auto) 16.2 %; Neutrophils # (auto) 4.19 K/uL (1.4-6.5); Neutrophils % (auto) 59.4 %; Platelet Count 181 K/uL (130-400); RDW Coefficient of Variation 18.4 % (11.5-14.5); RDW Standard Deviation 58.1 fL (36.4-46.3); Red Blood Count 3.39 M/uL (4.2-5.4); White Blood Count 7.05 K/uL (4.8-10.8)
[2021-11-14 07:18] LABS: BUN Creatinine Ratio 13.4 (10-20); Calcium 9.2 mg/dl (8.5-10.1); Creatinine Clr Calc Pharmacy 33.6 ml/min; Est GFR (Non-African American) 34.6 ml/min; Potassium 3.8 mmol/L (3.5-5.1)
[2021-11-14] MEDS: CALCIUM 600MG + VIT D 400 IU TAB PO SCH (08:06)
[2021-11-14] MEDS: METOPROLOL TARTRATE 25 MG TAB PO SCH ×2 (08:06→20:50)
[2021-11-14] MEDS: AMIODARONE 200 MG TAB PO SCH ×2 (08:06→20:51)
[2021-11-14] MEDS: PANTOprazole 40 MG TAB PO SCH ×2 (08:06→20:49)
[2021-11-14] MEDS: amLODIPine BESYLATE 5 MG TAB PO SCH (08:06)
[2021-11-14] MEDS: CHOLECALCIFEROL 1,000 UNITS 25 MCG TAB PO SCH (08:07)
[2021-11-14] MEDS: FLUTICASONE PROPIONATE NA SPR 16 GM BTL SCH (08:07)
[2021-11-14] MEDS: NYSTATIN POWDER 15GM BTL EXT SCH ×2 (08:08→20:52)
[2021-11-14] MEDS: UMECLIDINIUM/VILANTEROL 62.5/25MCG 7 PUFFS/INHALER INH SCH (08:09)
[2021-11-14] MEDS: FUROSEMIDE 80 MG TAB PO SCH (08:47)
--- NOTE | 2021-11-14 09:39 | XRay Report ---
LEFT KNEE 2 VIEWS CLINICAL HISTORY: Left knee pain. Joint effusion. FINDINGS: AP and crosstable lateral views of the left knee are correlated with CT scan dated 2. The skeletal structures are osteopenic. No fracture is identified by x-ray. There is mild/moderate tricompartmental degenerative joint space narrowing. There are marginal osteophytes. Chondrocalcinos is is seen in the medial and lateral compartments. There is a large joint effusion. The overlying sof t tissues are otherwise normal as imaged. IMPRESSION: 1. Osteopenia with no acute fracture clearly identified. 2. Large joint effusion with hemarthrosis shown on yesterday's CT scan. There is questionable lipohem arthrosis, and if there is a history of trauma an occult fracture is not excluded. 3. Degenerative change and chondrocalcinosis as above. Electronically signed by: Gallito Escalera M.D. 11/14/2021 9:38 AM
--- NOTE | 2021-11-14 09:59 | Electrocardiogram Report ---
Test Reason : Blood Pressure : / mmHG Vent. Rate : 073 BPM Atrial Rate : 071 BPM P-R Int : 000 ms QRS Dur : 092 ms QT Int : 206 ms P-R-T Axes : 000 009 178 degrees QTc Int : 226 ms Atrial fibrillation Nonspecific ST and T wave abnormality Abnormal ECG When compared with ECG of 23-OCT-2021 18:08, Nonspecific T wave abnormality, worse in Lateral leads QT has shortened Confirmed by Garfield Jamison ([id number]) on 11/14/2021 9:59:15 AM Referred By: Shan Clark Confirmed By:Caleb Jamison
[2021-11-14] MEDS: ACETAMINOPHEN 325 MG TAB PO PRN (15:25)
--- NOTE | 2021-11-14 15:39 | Hospitalist Progress Note ---
Date of Service November 14, 2021 Assessment & Plan (1) Left knee pain: Plan: Acute left knee pain with edema. DDX: infectious vs. hemarthrosis vs. gout/pseudogout. - Duplex from OSH reported as negative- on chart - Knee CT on 11/13 showed "Complex suprapatellar effusion measuring greater than simple fluid density." - Gout vs. pseudogout is possible without elevated WBC- PCT negative, ESR negative - Orthopedics consulted - Seen by them on 11/14. Likely hemarthrosis. Plan to either aspirate or possible even need an OR evacuation. Awaiting attending review. (2) Anemia: Plan: Acute on chronic without evidence of acute blood loss. Has hx of iron deficiency with iron transfusions at [facility]. - Downtrending from 7.5 to 6.7 s/p iron infusion last week - Transfused 2 units of PRBC on 11/13 with rebound to 9.4. - CT A/P negative for any fluid collection/occult blood loss in retroperitoneal space - As above with left knee (3) Elevated troponin: Plan: Drawn on admission in relation to her dyspnea. Without chest pain. Type II mismatch with anemia and increased HR secondary to anemia and acute illness. - No further needs inpatient. (4) Paroxysmal atrial fibrillation: Plan: Remains on amiodarone without conversion as well as Eliquis. - Patient states she takes 2 (200mg tabs BID)- for 400mg this would be within her time frame for loading dose, will keep 400mg BID - Clarify dose/need - Was planning for cardioversion as outpatient but appears to have gotten pos tponed secondary to influenza - Presently in afib in 60 - 70s. (5) CHF (congestive heart failure): Plan: HFpEF - not an acute exacerbation. - Reduce home Lasix - On my exam on 11/14, she looks mildly volume deplete and reports large output after the Lasix the night before. (6) Ear pain: Plan: Chronic otitis media - she remains on OTIC drops following myringotomy by ENT. - She continues with right ear pain and continues on her ofloxacin drops until follow up next week (7) Dyslipidemia: Plan: On Nora 3- hold (8) Lymphoma: Plan: Non-hodkins history of- completed radiation/chemotherapy. - She is without current treatment and follows with [facility] (9) Chronic obstructive pulmonary disease: Plan: Stable on home oxygen - this is not an acute exacerbation of her COPD - Continue home inhalers and oxygen (10) Nausea: Plan: Chronic following her chemotherapy for breast cancer - has gotten worse over the past month or so- also noted that this may be related to the same time of oral potassium - Evaluate symtpoms and follow - oral potassium on hold for daily replacement by primary service as needed Admission and Anticipated Discharge Date Admission Date: November 13, 2021 Subjective Doing well today. Stable knee pain. Less painful as she has not been up and moving today. Reports no fevers/chills, chest pain, shortness of breath, abdominal pain, nausea, or vomiting. Physical Exam Constitutional: WD/WN, vitals as above Eyes: EOM intact bilaterally; no conjunctival abnormality ENMT: external ear and nose normal, oropharynx normal Neck: trachea midline, no thyromegaly normal visual inspection Respiratory: normal respiratory effort, lungs clear to auscultation no respiratory distress Cardiovascular: RRR, no murmur, no edema Gastrointestinal (Abdomen): Inspection/Auscultation: abdomen normal to inspection; abdomen not distended Musculoskeletal: no cyanosis or clubbing, extremities motor strength 5/5 Knee: + effusion (Left knee) Skin: no rashes, warm and dry Neurologic: moves all extremities and awake Psychiatric: Orientation: alert, oriented to person and cooperative Results & Data Results & Data ([facility]) Vital Signs (Past 12 Hours) Vital Signs Temp Pulse Pulse Resp BP BP Pulse Ox 11/14/21 10:42 37.0 C 73 16 118/59 L 98 11/14/21 09:00 69 11/14/21 06:25 36.6 C 69 18 142/80 H 100 11/14/21 04:21 36.7 C 62 18 143/61 H 100 PG Care Time/CCT Total # of Minutes Spent Total Time Spent with Patient: Total time spent is greater than 50% in coordination of care (as documented) at patient's floor/unit and/or counseling patient: Coding Level of Care Code 89881 Subseq Hosp Care Lvl 3 Diagnoses Left knee pain M25.562 Anemia D64.9 Elevated troponin R77.8 Paroxysmal atrial fibrillation I48.0 CHF (congestive heart failure) I50.9 Heart failure chronicity: acute on chronic Heart failure type: unspecified Ear pain H92.09 Dyslipidemia E78.5 Lymphoma C85.90 Lymphoma site: unspecified region Lymphoma type: non-Hodgkin Non-Hodgkin lymphoma type: unspecified type Chronic obstructive pulmonary disease J44.9 Nausea R11.0 (1) CHF (congestive heart failure) Heart failure chronicity: acute on chronic Heart failure type: unspecified Qualified Code(s): I50.9 - Heart failure, unspecified (2) Lymphoma Lymphoma site: unspecified region Lymphoma type: non-Hodgkin Non-Hodgkin lymphoma type: unspecified type Qualified Code(s): C85.90 - Non-Hodgkin lymph zoya, unspecified, unspecified site
--- NOTE | 2021-11-14 17:07 | Orthopedic Consultation ---
Date of Consultation November 14, 2021 Assessment & Plan (1) Left knee pain: Likely spontaneous left knee hemarthrosis. Patient clearly has no signs of infection. White count is normal as are the ESR and CRP. No history of gout and and lieu of her drop in hemoglobin, this is possibly the likely source. Patient has been off of her Eliquis since her last dose yesterday morning. Dr. Lyon saw the patient just prior to my visit. Discussing the case with him, he felt patient would require an aspiration of the left knee joint. I also discussed this with Dr. Renzo Douglas. It was felt that with the holding of her Eliquis well over 24 hours, that aspiration is warranted. I discussed this with the patient. We discussed risks involved of attempted aspiration including but not all-inclusive of bleeding and/or infection. Patient was in agreement to undergo said aspiration. At that time, and aspiration site was chosen at the superior lateral area of the supra patellar pouch. This area was cleansed with 3 alcohol swabs and 3 Betadine swabs. This was let the dry. At that time an 18-gauge needle was then inserted into the suprapatellar pouch. Only a very small amount of blood was retrieved that was less than 2 mL. A second attempt was then tried shortly thereafter after recleansing the area that was chosen for aspiration point, with further cleansing with alcohol swabs and Betadine swabs and let the dry. 18- gauge spinal needle was then inserted into the suprapatellar pouch and again no further fluid was obtained other than a scant amount of blood. The area that was then cleansed again with a alcohol swab and 4 x 4's were placed over the aspiration site and an Stef wrap was placed around the knee. Although a solid entry was felt with both aspiration attempts, possibility of current hemarthrosis being congealed. We discussed continued use of the ice pack at this time. Patient will [facility]. Question second attempt for aspiration versus if the patient is having excruciating pain and inability for ambulation, question need for arthroscopic evacuation of hematoma versus open evacuation. I will discuss this with Dr. Lyon later today. History of Present Illness Reason for Consultation: Left knee effusion Attending Physician: Renzo Douglas MD History of Present Illness 80 yo female with past medical history Iron deficiency anemia, non-Hodgkin lymphoma (remission since 2017), GERD, Afib (on Eliquis), HTN, CVA, lumbar stenosis, nocturnal hypoxia, home oxygen use, CKD IIIb. Patient relates a history of swelling that occurred 2 to 3 days prior to admission. Patient denies any injury of any type. No mechanical falls. Denies bumping the knee at any time. He was also feeling more tired and a little dyspneic so she was evaluated at [facility]. At the time she had a smaller effusion of the left knee but was noted to be anemic with the hemoglobin of around 6. She was transferred up to [facility] and placed under the care of the [facility] hospitalist group. Patient denies any fevers or chills. No flu or cold-like symptoms. Patient recently received iron infusion in the recent past and she was not sure if this was part of why she was having her difficulty. She denied having any erythema over the knee. He denies any history of gout. Currently she is resting comfortably. Upon arrival to [facility], CT scan of the left knee was performed and noted a large left kne e effusion. No bony or soft tissue injury. We have been asked to see her for her left knee effusion. Allergies Allergy/AdvReac Type Severity Reaction Status Date / Time dexamethasone Allergy Severe Shortness Verified 11/13/21 10:54 of Breath, throat constriction Sulfa (Sulfonamide Allergy Severe HIVES Verified 11/13/21 10:54 Antibiotics) adhesive tape Allergy Intermediate redness, Verified 11/13/21 10:54 irritation, peels skin off amoxicillin Allergy Unknown hives Verified 11/13/21 10:54 azithromycin Allergy Unknown Hives Verified 11/13/21 10:54 [From Zithromax Z-Siddhartha] clavulanic acid Allergy Unknown hives Verified 11/13/21 10:54 meperidine Allergy Unknown HIVES Verified 11/13/21 10:54 Penicillins Allergy Unknown hives Verified 11/13/21 10:54 cephalexin [From Keflex] Allergy Verified 11/13/21 10:54 ciprofloxacin [From Cipro] AdvReac Severe Vomiting Verified 11/13/21 10:54 codeine AdvReac Unknown NAUSEA AND Verified 11/13/21 10:54 VOMITING ketorolac AdvReac Unknown 'increased Verified 11/13/21 10:54 bleeding' Home Medications Medication Instructions Recorded Confirmed Type acetaminophen 500 mg tablet 1,000 mg PO HS tab 06/03/19 11/13/21 History (Tylenol Extra Strength) calcium carbonate 600 mg-vitamin 1 tab PO QAM 07/31/19 11/13/21 History D3 10 mcg (400 unit) tablet (Calcium with Vitamin D) cholecalciferol (vitamin D3) 25 1,000 units PO QAM 07/31/19 11/13/21 History mcg (1,000 unit) tablet cinnamon bark 500 mg capsule 1,000 mg PO QAM 07/31/19 11/13/21 History cyanocobalamin (vitamin B-12) 1,000 mcg PO HS 07/31/19 11/13/21 History 1,000 mcg capsule omega-3 acid ethyl esters 1 gram 1 cap PO QAM 07/31/19 11/13/21 History capsule ipratropium 0.5 mg-albuterol 3 mg 3 ml INHALATION Q4H PRN #180 ml 10/05/20 11/13/21 Rx (2.5 mg base)/3 mL nebulization soln mirabegron 50 mg tablet,extended 50 mg PO HS tab 10/14/20 11/13/21 History release 24 hr (Myrbetriq) potassium chloride 10 mEq 10 meq PO QAM 11/28/20 11/13/21 History tablet,extended release(part/cryst) budesonide 0.5 mg/2 mL suspension 0.5 mg INHALATION BID PRN 03/24/21 11/13/21 History for nebulization mometasone 50 mcg/actuation nasal 2 spray INTRANASAL QAM 03/24/21 11/13/21 History spray tiotropium 2.5 mcg-olodaterol 2.5 2 puff INHALATION QAM 03/24/21 11/13/21 History mcg/actuation mist for inhalation (Stiolto Respimat) Oxygen Home #1 ea 05/11/21 11/13/21 Rx amlodipine 2.5 mg tablet (Norvasc) 2.5 mg PO QAM #90 tab 07/04/21 11/13/21 Rx loperamide 2 mg capsule 2 mg PO Q4H PRN #30 cap 08/15/21 11/13/21 Rx pantoprazole 40 mg tablet,delayed 40 mg PO BID #60 tab 08/15/21 11/13/21 Rx release mupirocin 2 % topical ointment See Rx Instructions TOPICAL BID 09/08/21 11/13/21 Rx #15 g nystatin 100,000 unit/gram topical 1 applic TOPICAL BID #60 g 09/22/21 11/13/21 Rx powder metoprolol tartrate 25 mg tablet 12.5 mg PO BID #90 tab 10/02/21 11/13/21 Rx albuterol sulfate 90 mcg/actuation 2 puff INHALATION TID PRN 10/06/21 11/13/21 History aerosol inhaler (Ventolin HFA) apixaban 5 mg tablet (Eliquis) 5 mg PO BID 10/06/21 11/13/21 History ondansetron 4 mg disintegrating 4 mg PO Q6H PRN #30 tab 10/25/21 11/13/21 Rx tablet amiodarone 200 mg tablet 400 mg PO BID 11/13/21 11/13/21 History furosemide 40 mg tablet 80 mg PO BID 11/13/21 11/13/21 History Patient History Medical History Acid reflux disease Anemia Anticoagulant long-term use Chronic otitis media of left ear with effusion Chronic pain of left upper extremity SHOULDER Chronic respiratory failure with hypoxia Degenerative disc disease Dyspnea on exertion Esophageal dysmotility ETD (eustachian tube dysfunction) Folic acid deficiency History of breast cancer right breast cancer -- CHEMO. sx. History of stroke 2014. Small chronic lacunar infarct noted on 03/[address] no residual. Hypertension Lumbar stenosis with neurogenic claudication Nephrolithiasis HX OF Nocturnal hypoxia Non-Hodgkin lymphoma 2017 - CHEMO AND RADIATION On home O2 3 LPM cont Osteoarthritis Paroxysmal atrial fibrillation hx mult cardioversions; on eliquis; follows with Dr. Sullivan Peripheral neuropathy Pneumonia Port-A-Cath in place HAS IT FLUSHED EVERY 6 WEEKS Rosacea Scoliosis Spinal stenosis Stage 3 chronic kidney disease Thrombocytopenia Thyroid nodule Vitamin D deficiency Surgical History H/O colonoscopy H/O dilation and curettage multiple H/O: hysterectomy EVELIA History of appendectomy History of back surgery lumbar fusion History of bladder surgery bladder tack History of bronchoscopy History of cardioversion History of esophagogastroduodenoscopy (EGD) History of lobectomy of lung Left upper lobe r/t nodule (granuloma) History of mastectomy right with lymph node removal History of tonsillectomy S/P cervical spinal fusion x2 (1969's) unsure of levels. ROM WNL S/P cholecystectomy S/P thyroid biopsy negative Family History Mother Coronary heart disease Cancer Atrial fibrillation Heart disease Hypertension Father Coronary heart disease Myocardial infarction Cancer Heart disease Hypertension Aunt Cancer Brother Prostate cancer Son Bladder cancer Other No family history of adverse response to anesthesia No family history of bleeding disorder Stroke Denies family history of Ovarian cancer Hearing loss Kidney disease Breast cancer Colorectal cancer Asthma Social History Smoking Status: Never smoker Second Hand Exposure: No; Hx Alcohol Use: No Hx Substance Use: No Preferred Language: Occitan Communication Ability: Effective Visual Impairment: Partially Limited Hearing Ability: Normal [employer] Required: No Beliefs That Will Affect Care: None marital status: / Current Living Situation: Family Current Living Situation Comment: [facility] current occupational status: retired How many Children do You have: 1 Other Information That Helps Us Care for You: No Feels Safe at Home: Yes Safety Concerns: Feels Safe At This Time Childhood Exposure to Second-Hand Smoke: No caffeine: Yes (magno walker) Dental Care, Regularly: No Physical Activity Frequency: 1-2 Times per Week Physical Activity Frequency Comment: Physical therapy at home Seatbelt Use: always Sunscreen Use: No Do you think of yourself as: straight/heterosexual Assistive Devices: Glasses, Oxygen - Continuous and Walker Physical Exam Physical Exam: Patient is an 80-year-old white female who appears her stated age. Currently she is alert and oriented x3. No acute distress. Pleasant cooperative. Patient states that her knee pain is under control as long as she is not trying to bend the knee or bear weight. On examination of her left knee, she has a tense effusion noted. There is no erythema. There is no overt heat to the left knee compared to the right. There is no ecchymosis noted. No areas of abrasions noted. She is tender on palpation over the suprapatellar pouch. And over the patella. She states that trying to do a straight leg raise causes discomfort in the left knee and she does have difficulty in doing a straight leg raise but she is able to do 1 almost on her own a short distance. I cannot feel any discrepancies in her quadriceps tendon. The knee feels stable as far as collaterals. She can actively bend the knee to approximately 30 degrees before she stops because of discomfort in the knee. Axial loading of the joint does not seem to bother her while lying in bed. She notes a history of neuropathy with her lower extremities which she feels like her legs were jittery all the time. She has no gross motor or sensory loss seen at this time other than due to pain in the left knee secondary to effusion. Results & Data ([facility]) Vital Signs (Past 12 Hours) Vital Signs Temp Pulse Pulse Resp BP Pulse Ox 11/14/21 15:37 36.9 C 73 18 124/69 99 11/14/21 10:42 37.0 C 73 16 118/59 L 98 11/14/21 09:00 69 11/14/21 06:25 36.6 C 69 18 142/80 H 100 Diagnostic Findings Patient:SHERI SOLO Admit Date:11/13/21 MR#:[id number] Address1:[address] [place] [address] Acct ID:[id number] Address2:[place] [address] Date:1940 [facility] Zip:[place] [address] Age:80 Location: Sex:F Room/Bed:[facility] Att Phy:Renzo Douglas MD Diagnosis:ACUTE CONGESTIVE HEART FAILURE Magdalena Phy:Li Miner MD Service Date:11/13/21 Fam Phy: Interpreting Phy:[facility] Phy:Shan Clark MD Ordering Phy:Teddy Pfeiffer cc: ~ ADDENDUM CT of the left knee was performed. Electronically signed by: Aman Hernandez M.D. 11/14/2021 8:[address] knee LT wo con CLINICAL HISTORY: evaluate fluid collection TECHNIQUE: Multidetector row helical CT of the right knee was performed without intravenous contrast. Coronal and sagittal reformations were obtained. Automated dose lowering techniques and/or adjustment according to patient size were utilized for this examination. CT DOSE: 249.26 mGy.cm Comparison: None available at the time of this dictation. FINDINGS: The osseous structures are without fracture or dislocation. Degenerative changes are seen in the knee joint. There is a complex suprapatellar effusion measuring greater than simple fluid density. The soft tissues are unremarkable. IMPRESSION: Complex suprapatellar effusion measuring greater than simple fluid density. This may reflect infectious/inflammatory etiology or hemarthrosis. No acute fracture is seen in this patient denies recent trauma. If clinical concern remains, aspiration of joint fluid can be performed. ACT 112: Negative or not required by law. LEFT KNEE 2 VIEWS CLINICAL HISTORY: Left knee pain. Joint effusion. FINDINGS: AP and crosstable lateral views of the left knee are correlated with CT scan dated 11/13/2021. The skeletal structures are osteopenic. No fracture is identified by x-ray. There is mild/moderate tricompartmental degenerative joint space narrowing. There are marginal osteophytes. Chondrocalcinosis is seen in the medial and lateral compartments. There is a large joint effusion. The overlying soft tissues are otherwise normal as imaged. IMPRESSION: 1. Osteopenia with no acute fracture clearly identified. 2. Large joint effusion with hemarthrosis shown on yesterday's CT scan. There is questionable lipohemarthrosis, and if there is a history of trauma an occult fracture is not excluded.
[2021-11-14] MEDS: CYANOCOBALAMIN (B-12) 500 MCG TABLET PO SCH (20:50)
[2021-11-14] MEDS: ACETAMINOPHEN 500 MG TAB PO SCH (20:51)
[2021-11-14] MEDS: MIRABEGRON ER 25 MG TAB PO SCH (20:52)
[2021-11-15] MEDS: ACETAMINOPHEN 325 MG TAB PO PRN ×3 (05:44→18:25)
[2021-11-15 06:27] LABS: Hematocrit (blood only) 30.2 % (37-47); Hemoglobin 9.3 g/dL (12.0-16.0); Mean Corpuscular Hemoglobin 26.7 pg (25-34); Mean Corpuscular Hgb Conc 30.8 g/dL (32-36); Mean Corpuscular Volume 86.8 fL (80-100); Mean Platelet Volume 9.4 fL (7.4-10.4); Platelet Count 191 K/uL (130-400); RDW Coefficient of Variation 19.1 % (11.5-14.5); RDW Standard Deviation 56.6 fL (36.4-46.3); Red Blood Count 3.48 M/uL (4.2-5.4); White Blood Count 7.37 K/uL (4.8-10.8)
[2021-11-15 06:58] LABS: BUN Creatinine Ratio 15.4 (10-20); Calcium 9.2 mg/dl (8.5-10.1); Creatinine Clr Calc Pharmacy 28.2 ml/min; Est GFR (African American) 32.4 ml/min; Potassium 3.6 mmol/L (3.5-5.1)
[2021-11-15] MEDS: CHOLECALCIFEROL 1,000 UNITS 25 MCG TAB PO SCH (09:20)
[2021-11-15] MEDS: CALCIUM 600MG + VIT D 400 IU TAB PO SCH (09:20)
[2021-11-15] MEDS: AMIODARONE 200 MG TAB PO SCH ×2 (09:20→20:43)
[2021-11-15] MEDS: METOPROLOL TARTRATE 25 MG TAB PO SCH ×2 (09:21→20:44)
[2021-11-15] MEDS: FLUTICASONE PROPIONATE NA SPR 16 GM BTL SCH (09:21)
[2021-11-15] MEDS: PANTOprazole 40 MG TAB PO SCH ×2 (09:21→20:45)
[2021-11-15] MEDS: amLODIPine BESYLATE 5 MG TAB PO SCH (09:21)
[2021-11-15] MEDS: NYSTATIN POWDER 15GM BTL EXT SCH ×2 (09:21→20:43)
[2021-11-15] MEDS: UMECLIDINIUM/VILANTEROL 62.5/25MCG 7 PUFFS/INHALER INH SCH (09:22)
--- NOTE | 2021-11-15 11:52 | Hospitalist Progress Note ---
Date of Service November 15, 2021 Assessment & Plan (1) Left knee pain: Plan: Acute left knee pain with edema. DDX: infectious vs. hemarthrosis vs. gout/pseudogout. - Duplex from OSH reported as negative- on chart - Knee CT on 11/13 showed "Complex suprapatellar effusion measuring greater than simple fluid density." - Orthopedics consulted - Seen by them on 11/14. Likely hemarthrosis. No blood returned on aspiration. Asking ortho to consider arthroscopy as she very much wants to keep her mobility for her QoL. (2) Anemia: Plan: Acute on chronic without evidence of acute blood loss. Has hx of iron deficiency with iron transfusions at [facility]. - Downtrending from 7.5 to 6.7 s/p iron infusion last week - Transfused 2 units of PRBC on 11/13 with rebound to 9.4. Stable on 11/15. - CT A/P negative for any fluid collection/occult blood loss in retroperitoneal space - As above with left knee (3) Elevated troponin: Plan: Drawn on admission in relation to her dyspnea. Without chest pain. Type II mismatch with anemia and increased HR secondary to anemia and acute illness. - No further needs inpatient. (4) Paroxysmal atrial fibrillation: Plan: Remains on amiodarone without conversion as well as Eliquis. - Patient states she takes 2 (200mg tabs BID)- for 400mg this would be within her time frame for loading dose, will keep 400mg BID - Clarify dose/need - Was planning for cardioversion as outpatient but appears to have gotten postponed secondary to influenza. - Presently in afib in 60 - 70s. (5) CHF (congestive heart failure): Plan: HFpEF - not an acute exacerbation. - Reduce home Lasix - On my exam on 11/15, she looks euvolemic. (6) Ear pain: Plan: Chronic otitis media - she remains on OTIC drops following myringotomy by ENT. 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 - She is without current treatment and follows with [facility] (9) Chronic obstructive pulmonary disease: Plan: Stable on home oxygen - this is not an acute exacerbation of her COPD - Continue home inhalers and oxygen (10) Nausea: Plan: Chronic following her chemotherapy for breast cancer - has gotten worse over the past month or so- also noted that this may be related to the same time of oral potassium - Evaluate symtpoms and follow - oral potassium on hold for daily replacement by primary service as needed Admission and Anticipated Discharge Date Admission Date: November 13, 2021 Subjective Stable knee today. Not much pain when she is lying completely still, but even moving a little causes pain. Reports no fevers/chills, chest pain, shortness of breath, abdominal pain, nausea, or vomiting. Physical Exam Constitutional: WD/WN, vitals as above Eyes: EOM intact bilaterally; no conjunctival abnormality ENMT: external ear and nose normal, oropharynx normal Neck: trachea midline, no thyromegaly normal visual inspection Respiratory: normal respiratory effort, lungs clear to auscultation no respiratory distress Cardiovascular: RRR, no murmur, no edema Gastrointestinal (Abdomen): Inspection/Auscultation: abdomen normal to inspection; abdomen not distended Musculoskeletal: no cyanosis or clubbing, extremities motor strength 5/5 Knee: + effusion (Left knee) Skin: no rashes, warm and dry Neurologic: moves all extremities and awake Psychiatric: Orientation: alert, oriented to person and cooperative Results & Data Results & Data ([facility]) Vital Signs (Past 12 Hours) Vital Signs Temp Pulse Pulse Resp BP Pulse Ox 11/15/21 07:30 36.5 C 60 16 130/74 100 11/15/21 06:30 36.6 C 65 18 125/78 100 11/15/21 03:39 36.9 C 67 18 132/74 100 PG Care Time/CCT Total # of Minutes Spent Total Time Spent with Patient: Total time spent is greater than 50% in coordination of care (as documented) at patient's floor/unit and/or counseling patient: Coding Level of Care Code 94364 Subseq Hosp Care Lvl 2 Diagnoses Left knee pain M25.562 Anemia D64.9 Elevated troponin R77.8 Paroxysmal atrial fibrillation I48.0 CHF (congestive heart failure) I50.9 Heart failure chronicity: acute on chronic Heart failure type: unspecified Ear pain H92.09 Dyslipidemia E78.5 Lymphoma C85.90 Lymphoma site: unspecified region Lymphoma type: non-Hodgkin Non-Hodgkin lymphoma type: unspecified type Chronic obstructive pulmonary disease J44.9 Nausea R11.0 (1) CHF (congestive heart failure) Heart failure chronicity: acute on chronic Heart failure type: unspecified Qualified Code(s): I50.9 - Heart failure, unspecified (2) Lymphoma Lymphoma site: unspecified region Lymphoma type: non-Hodgkin Non-Hodgkin lymphoma type: unspecified type Qualified Code(s): C85.90 - Non-Hodgkin lymphoma, unspecified, unspecified site
--- NOTE | 2021-11-15 15:26 | Orthopedic Progress Note ---
Date of Service November 15, 2021 Assessment & Plan (1) Left knee pain: Plan: patient examined with Dr Lyon, will plan on arthroscopic lavage of her left knee tomorrow, 11-16-21. will be NPO after MN, patient care discussed with primary team and will get her set up for surgery tomorrow afternoon. cont to Ice/elevate for swelling Admission and Anticipated Discharge Date Admission Date: November 13, 2021 Review of Systems Constitutional: no fever and no chills Respiratory: no cough and no dyspnea Cardiovascular: no chest pain, no dyspnea and no orthopnea Gastrointestinal: no abdominal pain, no nausea and no vomiting Physical Exam Physical Exam: Patient is an 80-year-old white female who appears her stated age. Currently she is alert and oriented x3. No acute distress. Pleasant cooperative. Patient states that her knee pain is under control as long as she is not trying to bend the knee or bear weight. On examination of her left knee, she has a tense effusion noted. There is no erythema. There is no overt heat to the left knee compared to the right. There is no ecchymosis noted. No areas of abrasions noted. She is tender on p alpation over the suprapatellar pouch. And over the patella. She states that trying to do a straight leg raise causes discomfort in the left knee and she does have difficulty in doing a straight leg raise but she is able to do 1 almost on her own a short distance. I cannot feel any discrepancies in her quadriceps tendon. The knee feels stable as far as collaterals. She can actively bend the knee to approximately 30 degrees before she stops because of discomfort in the knee. Axial loading of the joint does not seem to bother her while lying in bed. She notes a history of neuropathy with her lower extremities which she feels like her legs were jittery all the time. She has no gross motor or sensory loss seen at this time other than due to pain in the left knee secondary to effusion. Results & Data ([facility]) Vital Signs (Past 12 Hours) Vital Signs Temp Pulse Pulse Pulse Resp BP Pulse Ox 11/15/21 15:02 36.5 C 69 18 142/75 H 98 11/15/21 08:00 76 11/15/21 07:30 36.5 C 60 16 130/74 100 11/15/21 06:30 36.6 C 65 18 125/78 100 11/15/21 03:39 36.9 C 67 18 132/74 100
[2021-11-15] MEDS: LIDOCAINE 5% 1 PATCH TD PRN (18:11)
[2021-11-15 19:01] LABS: BUN Creatinine Ratio 16.4 (10-20); Calcium 9.2 mg/dl (8.5-10.1); Creatinine Clr Calc Pharmacy 27.9 ml/min; Est GFR (Non-African American) 27.6 ml/min; Potassium 4.2 mmol/L (3.5-5.1)
[2021-11-15] MEDS: CYANOCOBALAMIN (B-12) 500 MCG TABLET PO SCH (20:43)
[2021-11-15] MEDS: MIRABEGRON ER 25 MG TAB PO SCH (20:47)
[2021-11-15] MEDS: ACETAMINOPHEN 500 MG TAB PO SCH (20:49)
[2021-11-16 06:48] LABS: Basophils # (auto) 0.01 K/uL (0-0.2); Basophils % (auto) 0.1 %; Eosinophils # (auto) 0.09 K/uL (0-0.5); Eosinophils % (auto) 1.2 %; Hematocrit (blood only) 29.1 % (37-47); Hemoglobin 8.8 g/dL (12.0-16.0); Immature Granulocytes # (auto) 0.03 K/uL (0.00-0.02); Immature Granulocytes % (auto) 0.4 %; Lymphocytes # (auto) 1.75 K/uL (1.2-3.4); Mean Corpuscular Hemoglobin 26.8 pg (25-34); Mean Corpuscular Hgb Conc 30.2 g/dL (32-36); Mean Corpuscular Volume 88.7 fL (80-100); Mean Platelet Volume 9.7 fL (7.4-10.4); Monocytes # (auto) 1.08 K/uL (0.11-0.59); Monocytes % (auto) 14.2 %; Neutrophils # (auto) 4.64 K/uL (1.4-6.5); Neutrophils % (auto) 61.1 %; Platelet Count 194 K/uL (130-400); RDW Coefficient of Variation 19.6 % (11.5-14.5); RDW Standard Deviation 56.9 fL (36.4-46.3); Red Blood Count 3.28 M/uL (4.2-5.4)
[2021-11-16 07:09] LABS: BUN Creatinine Ratio 19.1 (10-20); Calcium 9.1 mg/dl (8.5-10.1); Creatinine Clr Calc Pharmacy 36.4 ml/min; Est GFR (African American) 44.1 ml/min; Est GFR (Non-African American) 38.1 ml/min; Magnesium 1.9 mg/dl (1.7-2.4)
[2021-11-16] MEDS: FLUTICASONE PROPIONATE NA SPR 16 GM BTL SCH (07:38)
[2021-11-16] MEDS: PANTOprazole 40 MG TAB PO SCH ×2 (07:39→21:44)
[2021-11-16] MEDS: NYSTATIN POWDER 15GM BTL EXT SCH ×2 (07:39→21:44)
[2021-11-16] MEDS: UMECLIDINIUM/VILANTEROL 62.5/25MCG 7 PUFFS/INHALER INH SCH (07:39)
[2021-11-16] MEDS: AMIODARONE 200 MG TAB PO SCH ×2 (07:40→21:42)
[2021-11-16] MEDS: CALCIUM 600MG + VIT D 400 IU TAB PO SCH (07:40)
[2021-11-16] MEDS: METOPROLOL TARTRATE 25 MG TAB PO SCH ×2 (07:40→21:43)
[2021-11-16] MEDS: CHOLECALCIFEROL 1,000 UNITS 25 MCG TAB PO SCH (07:40)
[2021-11-16] MEDS: amLODIPine BESYLATE 5 MG TAB PO SCH (07:40)
--- NOTE | 2021-11-16 07:51 | Orthopedic Progress Note ---
Date of Service November 16, 2021 Assessment & Plan (1) Left knee pain: Plan: patient examined with Dr Lyon, will proceed with left knee arthroscopic lavage later this afternoon. cont to ICE, ELEVATE, kenny compression. remain NPO for surgery this afternoon Admission and Anticipated Discharge Date Admission Date: November 13, 2021 Review of Systems Constitutional: no fever and no chills Respiratory: no cough and no dyspnea Cardiovascular: no chest pain, no dyspnea and no orthopnea Gastrointestinal: no abdominal pain, no nausea and no vomiting Physical Exam Physical Exam: Vital Signs Temp Pulse Pulse Pulse Resp BP Pulse Ox 11/16/21 06:47 36.6 C 66 18 130/75 98 11/16/21 03:15 37.0 C 77 18 155/63 H 100 11/15/21 23:35 37.2 C 86 20 138/71 97 11/15/21 22:17 68 11/15/21 19:42 37.4 C 87 20 129/67 95 11/15/21 15:02 36.5 C 69 18 142/75 H 98 11/15/21 08:00 76 Intake and Output 11/15/21 11/16/21 11/16/21 22:59 06:59 14:59 Intake Total 260 / 740 0 / 740 Output Total 450 / 450 Balance -190 / 290 0 / 290 Intake: Oral 260 / 740 0 / 740 Output: Urine 450 / 450 Constitutional: WD/WN, vitals as above Musculoskeletal: left knee: moderate effusion, no erythema, minimal ecchymosis noted from prior aspiration attempt. ROM 0/5/50, pain with active motion. able to perform SLR. calf soft, non-tender Results & Data ([facility]) Vital Signs (Past 12 Hours) Vital Signs Temp Pulse Pulse Resp BP Pulse Ox 11/16/21 06:47 36.6 C 66 18 130/75 98 11/16/21 03:15 37.0 C 77 18 155/63 H 100 11/15/21 23:35 37.2 C 86 20 138/71 97 11/15/21 22:17 68
--- NOTE | 2021-11-16 12:06 | Hospitalist Progress Note ---
Date of Service November 16, 2021 Assessment & Plan (1) Left knee pain: Plan: Acute left knee pain with edema. DDX: infectious vs. hemarthrosis vs. gout/pseudogout. - Duplex from OSH reported as negative- on chart - Knee CT on 11/13 showed "Complex suprapatellar effusion measuring greater than simple fluid density." - Orthopedics consulted - Plan for evacuation at 1:30 today. Plan for [facility] for [facility]. (2) Anemia: Plan: Acute on chronic without evidence of acute blood loss. Has hx of iron deficiency with iron transfusions at [facility]. - Downtrending from 7.5 to 6.7 s/p iron infusion last week - Transfused 2 units of PRBC on 11/13 with rebound to 9.4. Stable on 11/15 & 11/16. - CT A/P negative for any fluid collection/occult blood loss in retroperitoneal space - As above with left knee (3) Elevated troponin: Plan: Drawn on admission in relation to her dyspnea. Without chest pain. Type II mismatch with anemia and increased HR secondary to anemia and acute illness. - No further needs inpatient. (4) Paroxysmal atrial fibrillation: Plan: Remains on amiodarone without conversion as well as Eliquis. - Patient states she takes 2 (200mg tabs BID)- for 400mg this would be within her time frame for loading dose, will keep 400mg BID - Clarify dose/need - Was planning for cardioversion as outpatient but appears to have gotten postponed secondary to influenza. - Presently in afib in 60 - 70s. (5) CHF (congestive heart failure): Plan: HFpEF - not an acute exacerbation. - Hold home Lasix - On my exam on 11/16, she looks euvolemic to slightly hypovolemic. Mild rise in Cr yesterday. Will defer Lasix as she is presently NPO for surgery today. (6) Ear pain: Plan: Chronic otitis media - she remains on OTIC drops following myringotomy by ENT. - She continues with right ear pain and continues on her ofloxacin drops until follow up next week (7) Dyslipidemia: Plan: On [place] 3- hold (8) Lymphoma: Plan: Non-hodkins history of- completed radiation/chemotherapy. - She is without current treatment and follows with [facility] (9) Chronic obstructive pulmonary disease: Plan: Stable on home oxygen - this is not an acute exacerbation of her COPD - Continue home inhalers and oxygen (10) Nausea: Plan: Chronic following her chemotherapy for breast cancer - has gotten worse over the past month or so- also noted that this may be related to the same time of oral potassium - Evaluate symptoms and follow - None today. Possibly due to KCl supplement? Admission and Anticipated Discharge Date Admission Date: November 13, 2021 Subjective Doing well today. No major issues. Knee is still painful. A little nervous for surgery. Reports no fevers/chills, chest pain, shortness of breath, abdominal pain, nausea, or vomiting. Physical Exam Constitutional: WD/WN, vitals as above Eyes: EOM intact bilaterally; no conjunctival abnormality ENMT: external ear and nose normal, oropharynx normal Neck: trachea midline, no thyromegaly normal visual inspection Respiratory: normal respiratory effort, lungs clear to auscultation no respiratory distress Cardiovascular: RRR, no murmur, no edema Gastrointestinal (Abdomen): Inspection/Auscultation: abdomen normal to inspection; abdomen not distended Musculoskeletal: no cyanosis or clubbing, extremities motor strength 5/5 Knee: + effusion (Left knee) Skin: no rashes, warm and dry Neurologic: moves all extremities and awake Psychiatric: Orientation: alert, oriented to person and cooperative Results & Data Results & Data ([facility]) Vital Signs (Past 12 Hours) Vital Signs Temp Pulse Pulse Resp BP Pulse Ox 11/16/21 11:01 37.0 C 69 18 133/76 99 11/16/21 06:47 36.6 C 66 18 130/75 98 11/16/21 03:15 37.0 C 77 18 155/63 H 100 PG Care Time/CCT Total # of Minutes Spent Total Time Spent with Patient: Total time spent is greater than 50% in coordination of care (as documented) at patient's floor/unit and/or counseling patient: Coding Level of Care Code 06407 Subseq Hosp Care Lvl 3 Diagnoses Left knee pain M25.562 Anemia D64.9 Elevated troponin R77.8 Paroxysmal atrial fibrillation I48.0 CHF (congestive heart failure) I50.9 Heart failure chronicity: acute on chronic Heart failure type: unspecified Ear pain H92.09 Dyslipidemia E78.5 Lymphoma C85.90 Lymphoma type: non-Hodgkin Non-Hodgkin lymphoma type: unspecified type Lymphoma site: unspecified region Chronic obstructive pulmonary disease J44.9 Nausea R11.0 (1) CHF (congestive heart failure) Heart failure chronicity: acute on chronic Heart failure type: unspecified Qualified Code(s): I50.9 - Heart failure, unspecified (2) Lymphoma Lymphoma type: non-Hodgkin Non-Hodgkin lymphoma type: unspecified type Lymphoma site: unspecified region Qualified Code(s): C85.90 - Non-Hodgkin lymphoma, unspecified, unspecified site
--- NOTE | 2021-11-16 13:26 | Anesthesiology Consultation ---
Date of Service November 16, 2021 Assessment & Plan Chart Review Chart Review: Acceptable Risk for Surgery and Patient NOT seen in Pre Admission Testing Consults Requested none ASA ASA4 Proposed Anesthesia Anesthesia Type: General Risk / Benefits Reviewed With: PT / POA / Parent / Guardian, Accepts Plan and Informed Consent Obtained Additional Comments: covid test neg. History Surgery Operation Date: 11/16/21 07:00 Proposed Procedures p Left Knee Arthroscopic [place] - Porter Lyon, Height/Weight Height: 5 ft 4 in Weight: 89.1 kg Allergies Allergy/AdvReac Type Severity Reaction Status Date / Time dexamethasone Allergy Severe Shortness Verified 11/13/21 10:54 of Breath, throat constriction Sulfa (Sulfonamide Allergy Severe HIVES Verified 11/13/21 10:54 Antibiotics) adhesive tape Allergy Intermediate redness, Verified 11/13/21 10:54 irritation, peels skin off amoxicillin Allergy Unknown hives Verified 11/13/21 10:54 azithromycin Allergy Unknown Hives Verified 11/13/21 10:54 [From Zithromax Z-Siddhartha] clavulanic acid Allergy Unknown hives Verified 11/13/21 10:54 meperidine Allergy Unknown HIVES Verified 11/13/21 10:54 Penicillins Allergy Unknown hives Verified 11/13/21 10:54 cephalexin [From Keflex] Allergy Verified 11/13/21 10:54 ciprofloxacin [From Cipro] AdvReac Severe Vomiting Verified 11/13/21 10:54 codeine AdvReac Unknown NAUSEA AND Verified 11/13/21 10:54 VOMITING ketorolac AdvReac Unknown 'increased Verified 11/13/21 10:54 bleeding' Medications Home Medications Medication Instructions Recorded Confirmed Last Taken acetaminophen 500 mg tablet 1,000 mg PO HS tab 06/03/19 11/13/21 11/13/21 09:00 (Tylenol Extra Strength) calcium carbonate 600 mg-vitamin 1 tab PO QAM 07/31/19 11/13/21 11/12/21 09:00 D3 10 mcg (400 unit) tablet (Calcium with Vitamin D) cholecalciferol (vitamin D3) 25 1,000 units PO QAM 07/31/19 11/13/21 11/12/21 09:00 mcg (1,000 unit) tablet cinnamon bark 500 mg capsule 1,000 mg PO QAM 07/31/19 11/13/21 11/13/21 09:00 cyanocobalamin (vitamin B-12) 1,000 mcg PO HS 07/31/19 11/13/21 11/12/21 21:00 1,000 mcg capsule omega-3 acid ethyl esters 1 gram 1 cap PO QAM 07/31/19 11/13/21 11/12/21 21:00 capsule ipratropium 0.5 mg-albuterol 3 mg 3 ml INHALATION Q4H PRN #180 ml 10/05/20 11/13/21 11/12/21 21:00 (2.5 mg base)/3 mL nebulization soln mirabegron 50 mg tablet,extended 50 mg PO HS tab 10/14/20 11/13/21 11/12/21 21:00 release 24 hr (Myrbetriq) potassium chloride 10 mEq 10 meq PO QAM 11/28/20 11/13/21 11/12/21 09:00 tablet,extended release(part/cryst) budesonide 0.5 mg/2 mL suspension 0.5 mg INHALATION BID PRN 03/24/21 11/13/21 11/13/21 09:00 for nebulization mometasone 50 mcg/actuation nasal 2 spray INTRANASAL QAM 03/24/21 11/13/21 11/12/21 21:00 spray tiotropium 2.5 mcg-olodaterol 2.5 2 puff INHALATION QAM 03/24/21 11/13/21 11/12/21 09:00 mcg/actuation mist for inhalation (Stiolto Respimat) Oxygen Home #1 ea 05/11/21 11/13/21 10/06/21 amlodipine 2.5 mg tablet (Norvasc) 2.5 mg PO QAM #90 tab 07/04/21 11/13/21 11/13/21 08:00 loperamide 2 mg capsule 2 mg PO Q4H PRN #30 cap 08/15/21 11/13/21 11/12/21 17:00 pantoprazole 40 mg tablet,delayed 40 mg PO BID #60 tab 08/15/21 11/13/21 11/12/21 21:00 release mupirocin 2 % topical ointment See Rx Instructions TOPICAL BID 09/08/21 11/13/21 10/06/21 #15 g nystatin 100,000 unit/gram topical 1 applic TOPICAL BID #60 g 09/22/21 11/13/21 11/12/21 09:00 powder metoprolol tartrate 25 mg tablet 12.5 mg PO BID #90 tab 10/02/21 11/13/21 11/13/21 09:00 albuterol sulfate 90 mcg/actuation 2 puff INHALATION TID PRN 10/06/21 11/13/21 11/12/21 20:00 aerosol inhaler (Ventolin HFA) apixaban 5 mg tablet (Eliquis) 5 mg PO BID 10/06/21 11/13/21 11/13/21 09:00 ondansetron 4 mg disintegrating 4 mg PO Q6H PRN #30 tab 10/25/21 11/13/21 11/12/21 21:00 tablet amiodarone 200 mg tablet 400 mg PO BID 11/13/21 11/13/21 11/12/21 20:30 furosemide 40 mg tablet 80 mg PO BID 11/13/21 11/13/21 11/12/21 21:00 Active Medications Generic Name Dose Route Start Last Admin Trade Name Freq PRN Reason Stop Dose Admin Acetaminophen 650 mg 11/13/21 16:41 11/15/21 18:25 Acetaminophen 325 Mg Tab PO 12/13/21 16:40 650 mg Q4H PRN Administration Pain or Fever Acetaminophen 1,000 mg 11/13/21 21:00 11/15/21 20:49 Acetaminophen 500 Mg Tab PO 12/13/21 20:59 1,000 mg HS [place] Administration Amiodarone HCl 400 mg 11/13/21 21:00 11/16/21 07:40 Amiodarone 200 Mg Tab PO 12/13/21 20:59 400 mg BID [place] Administration Amlodipine Besylate 2.5 mg 11/14/21 09:00 11/16/21 07:40 Amlodipine Besylate 5 Mg Tab PO 12/14/21 08:59 2.5 mg QAM [place] Administration Cyanocobalamin 1,000 mcg 11/13/21 21:00 11/15/21 20:43 Cyanocobalamin (B-12) 500 Mcg Tablet PO 12/13/21 20:59 1,000 mcg HS [place] Administration Fluticasone Propionate 2 sprays 11/14/21 09:00 11/16/21 07:38 Fluticasone Propionate Na Spr 16 Gm Btl NA 12/14/21 08:59 2 sprays QAM [place] Administration Heparin Sodium (Porcine) 5 ml 11/13/21 19:51 11/14/21 06:02 Heparin 100 Unit/Ml 5ml Flush FLUSH 12/13/21 19:50 5 ml PRN PRN Administration Flush Lidocaine 1 patch 11/15/21 16:00 11/15/21 18:11 Lidocaine 5% 1 Patch TD 12/15/21 16:14 1 patch QAM PRN Administration Per patient request Metoprolol Tartrate 12.5 mg 11/13/21 21:00 11/16/21 07:40 Metoprolol Tartrate 25 Mg Tab PO 12/13/21 20:59 12.5 mg BID [place] Administration Mirabegron 50 mg 11/13/21 21:00 11/15/21 20:47 Mirabegron Er 25 Mg Tab PO 12/13/21 20:59 50 mg HS [place] Administration Miscellaneous 1 ea 11/15/21 21:00 11/15/21 20:50 Remove Lidoderm Patch N/A 12/15/21 20:59 1 ea DAILY@2100 [place] Administration Multivitamins/Minerals 1 tab 11/14/21 09:00 11/16/21 07:40 Calcium 600mg + Vit D 400 Iu Tab PO 12/14/21 08:59 1 tab QAM [place] Administration Nystatin 1 appln 11/13/21 21:00 11/16/21 07:39 Nystatin Powder 15gm Btl EXT 12/13/21 20:59 1 appln BID [place] Administration Pantoprazole Sodium 40 mg 11/13/21 21:00 11/16/21 07:39 Pantoprazole 40 Mg Tab PO 12/13/21 20:59 40 mg BID [place] Administration Umeclidinium/Vilanterol 1 puffs 11/14/21 09:00 11/16/21 07:39 Umeclidinium/Vilanterol 62.5/25mcg 7 Puffs/Inhaler INH 12/14/21 08:59 1 puffs QAM [place] Administration Vitamin D 1,000 units 11/14/21 09:00 11/16/21 07:40 Cholecalciferol 1,000 Units 25 Mcg Tab PO 12/14/21 08:59 1,000 units QAM [place] Administration NPO Date Last Intake of Fluids: 11/15/21 Time Last Intake of Fluids: 23:45 Date Last Intake of Solids: 11/15/21 Time Last Intake of Solids: 17:30 Past Medical History Medical History Acid reflux disease Anemia Anticoagulant long-term use Chronic otitis media of left ear with effusion Chronic pain of left upper extremity SHOULDER Chronic respiratory failure with hypoxia Degenerative disc disease Dyspnea on exertion Esophageal dysmotility ETD (eustachian tube dysfunction) Folic acid deficiency History of breast cancer right breast cancer -- CHEMO. sx. History of stroke 2014. Small chronic lacunar infarct noted on 03/[address] no residual. Hypertension Lumbar stenosis with neurogenic claudication Nephrolithiasis HX OF Nocturnal hypoxia Non-Hodgkin lymphoma 2017 - CHEMO AND RADIATION On home O2 3 LPM cont Osteoarthritis Paroxysmal atrial fibrillation hx mult cardioversions; on eliquis; follows with Dr. Sullivan Peripheral neuropathy Pneumonia Port-A-Cath in place HAS IT FLUSHED EVERY 6 WEEKS Rosacea Scoliosis Spinal stenosis Stage 3 chronic kidney disease Thrombocytopenia Thyroid nodule Vitamin D deficiency Exercise / Class Metabolic Activity III < 4 Walking/Shop/Light housework Past Family History Family History Mother Coronary heart disease Cancer Atrial fibrillation Heart disease Hypertension Father Coronary heart disease Myocardial infarction Cancer Heart disease Hypertension Aunt Cancer Brother Prostate cancer Son Bladder cancer Other No family history of adverse response to anesthesia No family history of bleeding disorder Stroke Denies family history of Ovarian cancer Hearing loss Kidney disease Breast cancer Colorectal cancer Asthma Past Surgical History Surgical History H/O colonoscopy H/O dilation and curettage multiple H/O: hysterectomy [place] History of appendectomy History of back surgery lumbar fusion History of bladder surgery bladder tack History of bronchoscopy History of cardioversion History of esophagogastroduodenoscopy (EGD) History of lobectomy of lung Left upper lobe r/t nodule (granuloma) History of mastectomy right with lymph node removal History of tonsillectomy S/P cervical spinal fusion x2 () unsure of levels. ROM WNL S/P cholecystectomy S/P thyroid biopsy negative Past Anesthesia History No Hx of Anesthesia Complications and No Family Hx of Anesthesia Complications History of PONV No Hx of PONV and No Hx of Motion Sickness Social History Smoking Status: Never smoker Hx Alcohol Use: No Hx Substance Use: No substance use type: does not use Physical Exam Vital Signs Last Vital Signs Temp 37.0 C 11/16/21 11:01 Pulse 67 11/16/21 13:08 Resp 18 11/16/21 13:08 BP 158/52 H 11/16/21 13:08 Pulse Ox 100 11/16/21 13:08 Constitutional + obese ENMT Mouth: + dentition abnormality and + edentulous Thyromental Distance: < 3.5 Finger Breadths Mallampati Class: II Neck normal visual inspection and trachea midline; neck extension not limited Respiratory normal respiratory effort Auscultation: lungs clear to auscultation bilaterally Cardiovascular Rate/Rhythm: + abnormal rate (irreg.) and + abnormal rhythm (irreg.) Heart Sounds: + murmur Vessels: no carotid bruit Musculoskeletal Spine: normal cervical ROM Extremities: + extremities abnormal to inspection Neurologic moves all extremities Motor/Sensory: no sensory deficit Psychiatric Orientation: alert and oriented x 3 Testing Laboratory Results 11/16/21 05:41 11/16/21 05:40 PT 12.1 Seconds (9.0-12.0) H 11/13/21 17:08 INR 1.1 (0.9-1.1) 11/13/21 17:08 APTT 26.8 Seconds (21.0-31.0) 11/13/21 17:08 Blood Type O Positive 11/13/21 18:47 Antibody Screen NEGATIVE 11/13/21 18:47 Electrocardiogram Date: 11/13/21 Findings: + AFIB @ (at 72) Echocardiogram Date: 10/07/21 EF: 55% LV Function: normal RWMA: + none Other Findings: + atrial enlargement (RA/LA-mildly dilated) Valvular Disease: + MR (moderate.) RI-moderate
[2021-11-16] MEDS ORDERED: ONDANSETRON INJ 2 MG/ML 2 ML VIAL ONE ×2 (13:46→15:03)
[2021-11-16] MEDS ORDERED: PROPOFOL IV EMULSION 10 MG/ML 20 ML VIAL IV ONE (13:46)
[2021-11-16] MEDS ORDERED: fentaNYL citrate 100 MCG/2 ML VIAL ONE ×3 (13:46→15:48)
[2021-11-16] MEDS ORDERED: LIDOCAINE 2% 2 ML VIAL/AMP(20MG/ML) INFIL ONE (13:46)
--- NOTE | 2021-11-16 14:09 | History & Physical Bridge Note ---
Date of Service November 16, 2021 History & Physical Bridge Note I have examined the patient, reviewed the History & Physical and in the interval since the performance of the History & Physical I have noted the following changes of clinical significance: no changes noted Supervising Physician Co-Signing Physician Notes I personally saw and examined the patient. I verified all waters points and agree with KARIME Suero with the following exceptions and/or additions: 80 year old female transfer from [facility] due to shortness of breath with anemia and CHF exacerbation. However on arrival here she reports her main concern if left knee pain. No trauma. No inflammatory arthritis history. O/E HS, regular rate, irregular rhythm, no murmurs, Chest CTAB, No groin pain on left leg movement but significant knee pain. A/P Left knee pain - unclear etiology. ESR/CRP WNL. CT left knee concerning for hemarthosis ?related to Eliquis without trauma. Consult orthopedics Chronic blood loss anemia - Prior FOB positive. CT A/P without etiology. Not significant reduced from her baseline but trending down and now below 7 with associated shortness of breath. Patient consented for blood. Will give 2 units packed RBCs now and repeat CBC in AM. Chronic CHF - do not suspect acute exacerbation but likely to need increased dose of Lasix as transfusions given.
[2021-11-16] MEDS ORDERED: BUPIVACAINE/EPINEPHRINE 0.25% 1:200,000 30 ML VIAL ONE (14:16)
[2021-11-16] MEDS ORDERED: CLINDAMYCIN PHOS 300 MG/2 ML VIAL ONE (14:31)
[2021-11-16] MEDS ORDERED: CLINDAMYCIN/D5W 600 MG/54 ML BAG IV ONE (14:50)
--- NOTE | 2021-11-16 15:15 | Operative Report ---
Post Operative Report Pre & Post Diagnosis Operation Date: 11/16/21 07:00 Pre-Op Diagnosis: Left knee hemarthrosis Post-Op Diagnosis: Left knee hemarthrosis torn lateral meniscus tricompartmental DJD I identified the patient and participated in the time-out.: Yes Procedure Operation Date: 11/16/21 07:00 Actual Procedures p Left Knee Arthroscopic Lavage(Left) with evacuation of hematoma and partial lateral meniscectomy Porter Lyon DO Surgeon Porter Lyon DO Excellence Coach None Estimated Blood Loss 5 Findings Consistent with Post-Op Diagnosis Patient presents to the hospital after having sudden onset swelling of her left knee she is a been afebrile no no sickness on Eliquis with a spontaneous hemarthrosis of her left knee that was unable to be drained with aspiration presents for arthroscopic washout at time of surgery patient noted also have tricompartmental DJD as well as a complex tear of the lateral meniscus large amount of clot in the knee which was washed out Specimens None Drains None Anesthesia Type General Complications none Disposition Accompanied Patient To Recovery: No Disposition: Recovery Room Indications Patient presents with painful hemarthrosis left knee while on Eliquis with inability to ambulate or move with pain Description of Procedure After initiation of general anesthesia left lower extremity socially prepped draped you sterile fashion for surgery type utilize #11 blade medial lateral parapatellar portals were created arthroscopic examination of the knee also large amount of clot and hematoma within the knee which was evacuated arthroscopically with 12 L of sterile saline solution there is evidence of a complex tear of the anterior and lateral horn of the lateral meniscus this was debrided to a stable margin there is partial lateral resection is also performed as it was displaced fragments noted for evaluation removal of all clot from suprapatellar pouch medial lateral gutters and anterior compartment of the knee the wound was irrigated with 12 L of sterile saline solution a radiofrequency ArthroCare device was brought onto the field to obtain meticulous hemostasis the areas around the portals and any synovial areas that looks hyperemic or radiofrequency ablated such that no further bleeding would occur the wound was irrigated copiously sterile saline solution 20 cc of quarter percent Marcaine was injected into the knee joint skin was closed with 4-0 nylon sterile compressive dressings placed patient taken recovery in stable condition spine operative report dictated by Camron. I attest to the content of the Intraoperative Record and any orders documented therein. Any exceptions are noted below. Supervising Physician Co-Signing Physician Notes I personally saw and examined the patient. I verified all waters points and agree with KARIME Suero with the following exceptions and/or additions: 80 year old female transfer from [facility] due to shortness of breath with anemia and CHF exacerbation. However on arrival here she reports her main concern if left knee pain. No trauma. No inflammatory arthritis history. O/E HS, regular rate, irregular rhythm, no murmurs, Chest CTAB, No groin pain on left leg movement but significant knee pain. A/P Left knee pain - unclear etiology. ESR/CRP WNL. CT left knee concerning for hemarthosis ?related to Eliquis without trauma. Consult orthopedics Chronic blood loss anemia - Prior FOB positive. CT A/P without etiology. Not significant reduced from her baseline but trending down and now below 7 with associated shortness of breath. Patient consented for blood. Will give 2 units packed RBCs now and repeat CBC in AM. Chronic CHF - do not suspect acute exacerbation but likely to need increased dose of Lasix as transfusions given.
[2021-11-16] MEDS ORDERED: PROMETHAZINE HCL 12.5 MG in SODIUM CHLORIDE 0.9% 50 ML IV PRN (15:31)
[2021-11-16] MEDS ORDERED: LABETALOL HCL IV 5 MG/ML 20ML IV PRN (15:31)
[2021-11-16] MEDS ORDERED: fentaNYL citrate 100 MCG/2 ML VIAL IV PRN (15:31)
[2021-11-16] MEDS ORDERED: ePHEDrine sulfate 50 MG/ML AMP IV PRN (15:31)
[2021-11-16] MEDS ORDERED: ATROPINE SULFATE 0.1 MG/ML 10ML SYR IV PRN (15:31)
[2021-11-16] MEDS ORDERED: FLUMAZENIL 0.1 MG/1 ML 10 ML VIAL IV PRN (15:31)
[2021-11-16] MEDS ORDERED: NALOXONE HCL 0.4 MG/1 ML VIAL/CARP IV PRN (15:31)
[2021-11-16] MEDS ORDERED: ONDANSETRON INJ 2 MG/ML 2 ML VIAL IV PRN (15:31)
--- NOTE | 2021-11-16 16:25 | Anesthesiology Progress Note ---
Date of Service November 16, 2021 Anesthesia Post Procedure Vital Signs Vital Signs: Temp Pulse Pulse Pulse Resp BP Pulse Ox 11/16/21 16:15 63 18 141/57 H 100 11/16/21 16:05 36.6 C 65 16 151/54 H 100 11/16/21 15:55 68 20 148/63 H 100 11/16/21 15:45 60 18 150/55 H 100 11/16/21 15:35 66 23 151/61 H 100 11/16/21 15:25 59 L 14 158/64 H 100 11/16/21 15:18 36.4 C L 79 20 156/68 H 100 11/16/21 13:08 37.7 C H 67 18 158/52 H 100 11/16/21 11:01 37.0 C 69 18 133/76 99 11/16/21 06:47 36.6 C 66 18 130/75 98 11/16/21 03:15 37.0 C 77 18 155/63 H 100 11/15/21 23:35 37.2 C 86 20 138/71 97 11/15/21 22:17 68 11/15/21 19:42 37.4 C 87 20 129/67 95 Pain Intensity Bilateral Neck: Pain Intensity: 5 Left Anterior Knee: Pain Intensity: 2 Transfer of Care Handoff Completed per policy Notes Mental Status: alert / awake / arousable Patient Amnestic to Procedure: Yes Nausea / Vomiting: adequately controlled Pain: adequately controlled Airway Patency, RR, SpO2: stable & adequate BP & HR: stable & adequate Hydration State: stable & adequate Anesthetic Complications: no major complications apparent
[2021-11-16] MEDS: IRON SUCROSE 300 MG in SODIUM CHLORIDE 0.9% 250 ML IV SCH (18:10)
[2021-11-16] MEDS: ACETAMINOPHEN 325 MG TAB PO PRN (18:56)
[2021-11-16] MEDS: MIRABEGRON ER 25 MG TAB PO SCH (21:43)
[2021-11-16] MEDS: ACETAMINOPHEN 500 MG TAB PO SCH (21:43)
[2021-11-16] MEDS: CYANOCOBALAMIN (B-12) 500 MCG TABLET PO SCH (21:43)
[2021-11-16] MEDS ORDERED: oxyCODONE HCL IR 5 MG TAB (IMMEDIATE RELEASE) PO STA (21:48)
[2021-11-16] MEDS ORDERED: MoRPHine SULFATE 2 MG/ML CARP IV PRN ×2 (22:19)
[2021-11-17 06:16] LABS: Hematocrit (blood only) 29.9 % (37-47); Hemoglobin 9.1 g/dL (12.0-16.0); Mean Corpuscular Hemoglobin 27.1 pg (25-34); Mean Corpuscular Hgb Conc 30.4 g/dL (32-36); Mean Platelet Volume 9.3 fL (7.4-10.4); Platelet Count 192 K/uL (130-400); RDW Coefficient of Variation 19.9 % (11.5-14.5); Red Blood Count 3.36 M/uL (4.2-5.4); White Blood Count 7.21 K/uL (4.8-10.8)
[2021-11-17 06:29] LABS: BUN Creatinine Ratio 17.5 (10-20); Creatinine Clr Calc Pharmacy 39.6 ml/min; Est GFR (African American) 49.1 ml/min; Est GFR (Non-African American) 42.4 ml/min; Magnesium 1.9 mg/dl (1.7-2.4); Potassium 4.4 mmol/L (3.5-5.1)
[2021-11-17] MEDS: METOPROLOL TARTRATE 25 MG TAB PO SCH ×2 (07:56→21:19)
[2021-11-17] MEDS: CALCIUM 600MG + VIT D 400 IU TAB PO SCH (07:56)
[2021-11-17] MEDS: PANTOprazole 40 MG TAB PO SCH ×2 (07:56→21:21)
[2021-11-17] MEDS: CHOLECALCIFEROL 1,000 UNITS 25 MCG TAB PO SCH (07:57)
[2021-11-17] MEDS: FLUTICASONE PROPIONATE NA SPR 16 GM BTL SCH (07:57)
[2021-11-17] MEDS: amLODIPine BESYLATE 5 MG TAB PO SCH (07:57)
[2021-11-17] MEDS: AMIODARONE 200 MG TAB PO SCH ×2 (07:57→21:18)
[2021-11-17] MEDS: UMECLIDINIUM/VILANTEROL 62.5/25MCG 7 PUFFS/INHALER INH SCH (07:58)
--- NOTE | 2021-11-17 07:59 | Orthopedic Progress Note ---
Date of Service November 17, 2021 Assessment & Plan (1) Left knee pain: Plan: POD #1 s/p Left Knee Arthroscopic Lavage with evacuation of hematoma and partial lateral meniscectomy PT/OT- WBAT, knee ROM as tolerated she can resume her anticoagulants today when ok with primary team RICE Admission and Anticipated Discharge Date Admission Date: November 13, 2021 Subjective POD #1 s/p Left Knee Arthroscopic Lavage with evacuation of hematoma and partial lateral meniscectomy Review of Systems Constitutional: no fever and no chills Respiratory: no cough and no dyspnea Cardiovascular: no chest pain, no dyspnea and no orthopnea Gastrointestinal: no abdominal pain, no nausea and no vomiting Physical Exam Physical Exam: Vital Signs Temp Pulse Pulse Pulse Pulse Resp BP 11/17/21 06:47 36.7 C 65 18 124/70 11/17/21 03:42 36.6 C 59 L 18 115/61 11/17/21 00:03 36.6 C 65 18 130/71 11/16/21 22:17 67 11/16/21 20:33 36.8 C 69 18 137/72 11/16/21 19:18 36.7 C 64 18 133/69 11/16/21 18:17 36.7 C 64 20 132/66 11/16/21 17:27 81 11/16/21 17:16 36.8 C 71 18 129/50 L 11/16/21 16:54 36.7 C 67 18 133/70 11/16/21 16:15 63 18 141/57 H 11/16/21 16:05 36.6 C 65 16 151/54 H 11/16/21 15:55 68 20 148/63 H 11/16/21 15:45 60 18 150/55 H 11/16/21 15:35 66 23 151/61 H 11/16/21 15:25 59 L 14 158/64 H 11/16/21 15:18 36.4 C L 79 20 156/68 H 11/16/21 13:08 37.7 C H 67 18 158/52 H 11/16/21 11:01 37.0 C 69 18 133/76 Pulse Ox 11/17/21 06:47 97 11/17/21 03:42 100 11/17/21 00:03 100 11/16/21 22:17 11/16/21 20:33 100 11/16/21 19:18 100 11/16/21 18:17 100 11/16/21 17:27 11/16/21 17:16 100 11/16/21 16:54 100 11/16/21 16:15 100 11/16/21 16:05 100 11/16/21 15:55 100 11/16/21 15:45 100 11/16/21 15:35 100 11/16/21 15:25 100 11/16/21 15:18 100 11/16/21 13:08 100 11/16/21 11:01 99 Intake and Output 11/16/21 11/17/21 11/17/21 22:59 06:59 14:59 Intake Total 979 / 1099 120 / 1099 Output Total 5 230 225 / 230 Balance 974 / 869 -105 / 869 Intake: IV 319 / 319 Clindamycin 60 0 mg In 54 ml @ 54 / 54 100 mls/hr IV ONCE ONE Rx#: [id number] Iron Sucrose 3 00 mg In Sodium 265 / 265 Chloride 0.9% 250 ml @ 176.667 mls/hr IV QAM [place] Rx#:[id number] IV Perioperative 500 / 500 Oral 160 / 280 120 / 280 Output: Urine 225 / 225 Estimated Blood Loss 5 / 5 Other: Other Intake Marion rce NPO Weight 88.6 kg Weight Measureme nt Method Built in [facility] Constitutional: WD/WN, vitals as above Musculoskeletal: left knee: NVDI, calf SNT, negative zhanna sign. DP palpable, able to wiggle toes/ankle movement without difficulty. dressing clean and dry Results & Data ([facility]) Vital Signs (Past 12 Hours) Vital Signs Temp Pulse Pulse Resp BP Pulse Ox 11/17/21 06:47 36.7 C 65 18 124/70 97 11/17/21 03:42 36.6 C 59 L 18 115/61 100 11/17/21 00:03 36.6 C 65 18 130/71 100 11/16/21 22:17 67 11/16/21 20:33 36.8 C 69 18 137/72 100
[2021-11-17] MEDS: NYSTATIN POWDER 15GM BTL EXT SCH ×2 (08:00→21:20)
[2021-11-17] MEDS: IRON SUCROSE 300 MG in SODIUM CHLORIDE 0.9% 250 ML IV SCH (08:12)
[2021-11-17] MEDS ORDERED: FUROSEMIDE 40 MG TAB PO ONE (08:30)
[2021-11-17] MEDS: HYDROCODONE/ACETAMOPHEN 5/325MG TAB PO PRN ×3 (09:05→21:18)
--- NOTE | 2021-11-17 11:11 | Hospitalist Progress Note ---
Date of Service November 17, 2021 Assessment & Plan (1) Left knee pain: Plan: Acute left knee pain with edema. Due to hemarthrosis. - Duplex from OSH reported as negative- on chart - Knee CT on 11/13 showed "Complex suprapatellar effusion measuring greater than simple fluid density." - Orthopedics consulted - Evacuation on 11/16. Meniscal tear found and cauterized. Per ortho, ok to resume anticoagulation today. Plan for [place] on Saturday. (2) Anemia: Plan: Acute blood loss anemia from hemarthrosis. On baseline of iron deficiency with iron transfusions at [facility]. - CT A/P negative for any fluid collection/occult blood loss in retroperitoneal space - Downtrending from 7.5 to 6.7 s/p iron infusion last week - Transfused 2 units of PRBC on 11/13 with rebound to 9.4. Stable now. -> Venofer x 3 doses while in the hospital. Last dose will be on 11/18. (3) Elevated troponin: Plan: Drawn on admission in relation to her dyspnea. Without chest pain. Type II mismatch with anemia and increased HR secondary to anemia and acute illness. - No further needs inpatient. (4) Paroxysmal atrial fibrillation: Plan: Remains on amiodarone without conversion as well as Eliquis. - Patient states she takes 2 (200mg tabs BID)- for 400mg this would be within her time frame for loading dose, will keep 400mg BID - Was planning for cardioversion as outpatient but appears to have gotten postponed secondary to influenza. - Presently in afib in 60 - 70s. -> Per ortho, can resume anticoagulation. (5) CHF (congestive heart failure): Plan: HFpEF - not an acute exacerbation. - On my exam on 11/17, she looks euvolemic. Cr at baseline. -> Lasix 40 mg PO x 1 on 11/17; will need to monitor volume status and re-order Lasix as it was a one-time dose. (6) Ear pain: Plan: Chronic otitis media - she remains on OTIC drops following myringotomy by ENT. 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 - She is without current treatment and follows with [facility] (9) Chronic obstructive pulmonary disease: Plan: Stable on home oxygen - this is not an acute exacerbation of her COPD - Continue home inhalers and oxygen (10) Nausea: Plan: Chronic following her chemotherapy for breast cancer - has gotten worse over the past month or so- also noted that this may be related to the same time of oral potassium - Evaluate symptoms and follow - None today. Possibly due to KCl supplement? Admission and Anticipated Discharge Date Admission Date: November 13, 2021 Subjective Doing well today. Still with some knee pain, but doing well otherwise. Reports no fevers/chills, chest pain, shortness of breath, abdominal pain, nausea, or vomiting. Physical Exam Constitutional: WD/WN, vitals as above Eyes: EOM intact bilaterally; no conjunctival abnormality ENMT: external ear and nose normal, oropharynx normal Neck: trachea midline, no thyromegaly normal visual inspection Respiratory: normal respiratory effort, lungs clear to auscultation no respiratory distress Cardiovascular: RRR, no murmur, no edema Gastrointestinal (Abdomen): Inspection/Auscultation: abdomen normal to inspection; abdomen not distended Musculoskeletal: no cyanosis or clubbing, extremities motor strength 5/5 Knee: + knee abnormal to inspection (Left knee wrapped) Good cap refill and sensation intact on left toes below bandages. Skin: no rashes, warm and dry Neurologic: moves all extremities and awake Psychiatric: Orientation: alert, oriented to person and cooperative Results & Data Results & Data ([facility]) Vital Signs (Past 12 Hours) Vital Signs Temp Pulse Resp BP Pulse Ox 11/17/21 11:02 36.8 C 69 18 125/70 100 11/17/21 09:54 100 11/17/21 06:47 36.7 C 65 18 124/70 97 11/17/21 03:42 36.6 C 59 L 18 115/61 100 11/17/21 00:03 36.6 C 65 18 130/71 100 PG Care Time/CCT Total # of Minutes Spent Total Time Spent with Patient: Total time spent is greater than 50% in coordination of care (as documented) at patient's floor/unit and/or counseling patient: Coding Level of Care Code 94386 Subseq Hosp Care Lvl 3 Diagnoses Left knee pain M25.562 Anemia D64.9 Elevated troponin R77.8 Paroxysmal atrial fibrillation I48.0 CHF (congestive heart failure) I50.9 Heart failure chronicity: acute on chronic Heart failure type: unspecified Ear pain H92.09 Dyslipidemia E78.5 Lymphoma C85.90 Lymphoma type: non-Hodgkin Non-Hodgkin lymphoma type: unspecified type Lymphoma site: unspecified region Chronic obstructive pulmonary disease J44.9 Nausea R11.0 (1) CHF (congestive heart failure) Heart failure chronicity: acute on chronic Heart failure type: unspecified Qualified Code(s): I50.9 - Heart failure, unspecified (2) Lymphoma Lymphoma type: non-Hodgkin Non-Hodgkin lymphoma type: unspecified type Lymph zoya site: unspecified region Qualified Code(s): C85.90 - Non-Hodgkin lymphoma, unspecified, unspecified site
[2021-11-17] MEDS: MIRABEGRON ER 25 MG TAB PO SCH (21:19)
[2021-11-17] MEDS: CYANOCOBALAMIN (B-12) 500 MCG TABLET PO SCH (21:19)
[2021-11-17] MEDS ORDERED: PROMETHAZINE HCL 6.25 MG in SODIUM CHLORIDE 0.9% 50 ML IV PRN (22:24)
--- NOTE | 2021-11-18 07:49 | Orthopedic Progress Note ---
Date of Service November 18, 2021 Assessment & Plan (1) Left knee pain: Plan: POD #2 s/p Left Knee Arthroscopic Lavage with evacuation of hematoma and partial lateral meniscectomy PT/OT- WBAT, knee ROM as tolerated RICE Plan for discontinuing the Stef bandage later today. Orthopedics to sign off at this time. She will follow-up with Dr. Lyon' team approximately 10 to 14 days postop. Admission and Anticipated Discharge Date Admission Date: November 13, 2021 Supervising Physician Co-Signing Physician Notes Patient seen and examined. Agree with BJ Hudson's note as above. She reports overall improvement in her knee pain after knee scope washout of hematoma. Continue knee range of motion, weightbearing as tolerated. Follow-up in orthopedic clinic with Dr. Lyon 10 to 14 days after discharge. Please call [facility] at [phone] to make an appointment. Subjective Doing well today. States the pain has improved in the left knee. She was able to ambulate in the hallway yesterday with only a slight increase in pain. No new complaints today. Physical Exam Constitutional: WD/WN, vitals as above no acute distress (Lying comfortably in bed) Musculoskeletal: Knee: + surgical incision (Left knee Stef bandage C/D/I); no deformity Neurologic: normal touch/pain/proprioception Psychiatric: A+Ox3, euthymic affect Speech: normal rate/rhythm/volume of speech Results & Data ([facility]) Vital Signs (Past 12 Hours) Vital Signs Temp Pulse Pulse Resp BP Pulse Ox 11/18/21 07:39 63 11/18/21 07:29 36.7 C 92 H 18 146/83 H 94 11/18/21 04:31 73 11/18/21 02:50 36.7 C 60 16 110/65 100 11/17/21 23:14 36.7 C 74 18 119/69 99
[2021-11-18] MEDS: CALCIUM 600MG + VIT D 400 IU TAB PO SCH (08:11)
[2021-11-18] MEDS: PANTOprazole 40 MG TAB PO SCH ×2 (08:11→20:44)
[2021-11-18] MEDS: amLODIPine BESYLATE 5 MG TAB PO SCH (08:11)
[2021-11-18] MEDS: CHOLECALCIFEROL 1,000 UNITS 25 MCG TAB PO SCH (08:11)
[2021-11-18] MEDS: APIXABAN 5 MG TABLET PO SCH ×2 (08:11→20:44)
[2021-11-18] MEDS: METOPROLOL TARTRATE 25 MG TAB PO SCH ×2 (08:12→20:42)
[2021-11-18] MEDS: AMIODARONE 200 MG TAB PO SCH ×2 (08:12→20:45)
[2021-11-18] MEDS: UMECLIDINIUM/VILANTEROL 62.5/25MCG 7 PUFFS/INHALER INH SCH (08:12)
[2021-11-18] MEDS: FLUTICASONE PROPIONATE NA SPR 16 GM BTL SCH (08:12)
[2021-11-18] MEDS: NYSTATIN POWDER 15GM BTL EXT SCH ×2 (08:12→20:45)
[2021-11-18 08:42] LABS: Hematocrit (blood only) 28.4 % (37-47); Hemoglobin 8.6 g/dL (12.0-16.0); Mean Corpuscular Hemoglobin 27.4 pg (25-34); Mean Corpuscular Hgb Conc 30.3 g/dL (32-36); Mean Corpuscular Volume 90.4 fL (80-100); Mean Platelet Volume 9.5 fL (7.4-10.4); Platelet Count 185 K/uL (130-400); RDW Coefficient of Variation 20.4 % (11.5-14.5); RDW Standard Deviation 61.1 fL (36.4-46.3); Red Blood Count 3.14 M/uL (4.2-5.4); White Blood Count 6.48 K/uL (4.8-10.8)
[2021-11-18] MEDS: LIDOCAINE 5% 1 PATCH TD PRN (08:53)
[2021-11-18 09:12] LABS: BUN Creatinine Ratio 16.8 (10-20); Creatinine Clr Calc Pharmacy 34.7 ml/min; Est GFR (African American) 41.8 ml/min; Est GFR (Non-African American) 36.1 ml/min; Magnesium 1.8 mg/dl (1.7-2.4); Potassium 4.2 mmol/L (3.5-5.1)
[2021-11-18] MEDS: IRON SUCROSE 300 MG in SODIUM CHLORIDE 0.9% 250 ML IV SCH (09:16)
[2021-11-18] MEDS: ACETAMINOPHEN 325 MG TAB PO PRN ×2 (13:02→17:41)
--- NOTE | 2021-11-18 13:12 | Hospitalist Progress Note ---
Date of Service November 18, 2021 Assessment & Plan (1) Hemarthrosis, left knee: Plan: Post Op day 2 s/p evacuation of hematoma and meniscectomy Patient is doing well post surgery says knee pain has significantly reduced Weight bearing as tolerated Participating in PT Plan is for Rehab on Saturday Outpatient follow up with Ortho Appreciate Ortho shahla (2) Left knee pain: Plan: Acute left knee pain with edema. Due to hemarthrosis. - Duplex from OSH reported as negative- on chart - Knee CT on 11/13 showed "Complex suprapatellar effusion measuring greater than simple fluid density." - Orthopedics consulted - Evacuation on 11/16. Meniscal tear found and cauterized. Per ortho, ok to resume anticoagulation today. Plan for [place] on Saturday. (3) Anemia: Plan: Acute blood loss from hemathrosis Some improvement following transfusion of 2 units of blood and Iron (4) Elevated troponin: Plan: Drawn on admission in relation to her dyspnea. Without chest pain. Type II mismatch with anemia and increased HR secondary to anemia and acute illness. - No further needs inpatient. (5) Paroxysmal atrial fibrillation: Plan: Remains on amiodarone without conversion as well as Eliquis. - Patient states she takes 2 (200mg tabs BID)- for 400mg this would be within her time frame for loading dose, will keep 400mg BID - Was planning for cardioversion as outpatient but appears to have gotten postponed secondary to influenza. - Presently in afib in 60 - 70s. -> Per ortho, can resume anticoagulation. (6) CHF (congestive heart failure): Plan: HFpEF - not an acute exacerbation. - Appears euvolemic Monitor I/O, daily weight (7) Ear pain: Plan: Chronic otitis media - she remains on OTIC drops following myringotomy by ENT. 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 - She is without current treatment and follows with [facility] (10) Chronic obstructive pulmonary disease: Plan: Stable on home oxygen - this is not an acute exacerbation of her COPD - Continue home inhalers and oxygen (11) Nausea: Plan: Chronic following her chemotherapy for breast cancer - has gotten worse over the past month or so- also noted that this may be related to the same time of oral potassium - Evaluate symptoms and follow - None today. Possibly due to KCl supplement? Plan: For rehab on Saturday Admission and Anticipated Discharge Date Admission Date: November 13, 2021 Subjective patient seen and examined today, says knee pain is much better Review of Systems Review of Systems: All systems reviewed are negative, apart from the ones con tained in the history. Physical Exam Physical Exam: The patient is awake, alert and oriented 3, well developed and well nourished, normocephalic and atraumatic, lying in bed and in no acute distress. HEENT--PERRL, EOMI, mucous membranes and oropharynx mildly dry Neck--supple. No JVD. No bruits. Thyroid normal, trachea midline, no adenopathy. Heart--normal S1 and S2. No murmurs, rubs or gallops. Lungs--clear bilaterally, no respiratory distress, no accessory muscle use. Abdomen--normal bowel sounds and soft. Mild epigastric and left sided abdominal pain Extremities--left knee in kenny bandage Dermatologic--normal skin turgor, normal color, no abnormal lymph nodes, no rash. Neurologic--cranial nerves II through XII grossly intact. Rheumatologic--normal range of motion. Psychiatric--normal affect. Results & Data Results & Data ([facility]) Vital Signs (Past 12 Hours) Vital Signs Temp Pulse Pulse Resp BP Pulse Ox 11/18/21 11:32 98.2 F 65 20 122/71 92 11/18/21 07:39 63 11/18/21 07:29 98.1 F 92 H 18 146/83 H 94 11/18/21 04:31 73 11/18/21 02:50 98.1 F 60 16 110/65 100 PG Care Time/CCT Total # of Minutes Spent Total Time Spent with Patient: Total time spent is greater than 50% in coordination of care (as documented) at patient's floor/unit and/or counseling patient: Coding Level of Care Code 61316 Subseq Hosp Care Lvl 2 Diagnoses Left knee pain M25.562 Anemia D64.9 Elevated troponin R77.8 Paroxysmal atrial fibrillation I48.0 CHF (congestive heart failure) I50.9 Heart failure chronicity: acute on chronic Heart failure type: unspecified Ear pain H92.09 Dyslipidemia E78.5 Lymphoma C85.90 Lymphoma type: non-Hodgkin Non-Hodgkin lymphoma type: unspecified type Lymphoma site: unspecified region Chronic obstructive pulmonary disease J44.9 Nausea R11.0 Hemarthrosis, left knee M25.062 Time Spent (min) 35 (1) CHF (congestive heart failure) Heart failure chronicity: acute on chronic Heart failure type: unspecified Qualified Code(s): I50.9 - Heart failure, unspecified (2) Lymphoma Lymphoma type: non-Hodgkin Non-Hodgkin lymphoma type: unspecified type Lymphoma site: unspecified region Qualified Code(s): C85.90 - Non-Hodgkin lymphoma, unspecified, unspecified site
[2021-11-18] MEDS: CYANOCOBALAMIN (B-12) 500 MCG TABLET PO SCH (20:40)
[2021-11-18] MEDS: MIRABEGRON ER 25 MG TAB PO SCH (20:44)
[2021-11-18] MEDS: HYDROCODONE/ACETAMOPHEN 5/325MG TAB PO PRN (20:53)
[2021-11-19] MEDS: FLUTICASONE PROPIONATE NA SPR 16 GM BTL SCH (08:08)
[2021-11-19] MEDS: UMECLIDINIUM/VILANTEROL 62.5/25MCG 7 PUFFS/INHALER INH SCH (08:08)
[2021-11-19] MEDS: METOPROLOL TARTRATE 25 MG TAB PO SCH ×2 (08:09→21:13)
[2021-11-19] MEDS: PANTOprazole 40 MG TAB PO SCH ×2 (08:09→21:16)
[2021-11-19] MEDS: AMIODARONE 200 MG TAB PO SCH ×2 (08:09→21:15)
[2021-11-19] MEDS: APIXABAN 5 MG TABLET PO SCH ×2 (08:09→21:13)
[2021-11-19] MEDS: CHOLECALCIFEROL 1,000 UNITS 25 MCG TAB PO SCH (08:10)
[2021-11-19] MEDS: CALCIUM 600MG + VIT D 400 IU TAB PO SCH (08:10)
[2021-11-19] MEDS: amLODIPine BESYLATE 5 MG TAB PO SCH (08:10)
[2021-11-19] MEDS: NYSTATIN POWDER 15GM BTL EXT SCH ×2 (08:38→21:17)
[2021-11-19] MEDS: HEPARIN 100 UNIT/ML 5ML FLUSH FLUSH PRN (09:28)
[2021-11-19] MEDS: LIDOCAINE 5% 1 PATCH TD PRN (09:35)
[2021-11-19] MEDS: ACETAMINOPHEN 325 MG TAB PO PRN ×2 (10:05→21:12)
--- NOTE | 2021-11-19 12:48 | Hospitalist Progress Note ---
Date of Service November 19, 2021 Assessment & Plan (1) Hemarthrosis, left knee: Plan: Post Op day 3 s/p evacuation of hematoma and meniscectomy Patient is doing well post surgery says knee pain has significantly reduced Weight bearing as tolerated Participating in PT Plan is for Rehab on Saturday Outpatient follow up with [facility] (2) Left knee pain: Plan: Acute left knee pain with edema. Due to hemarthrosis. - Duplex from OSH reported as negative- on chart - Knee CT on 11/13 showed "Complex suprapatellar effusion measuring greater than simple fluid density." - Orthopedics consulted - Evacuation on 11/16. Meniscal tear found and cauterized. Per ortho, ok to resume anticoagulation today. Plan for [place] on Saturday. (3) Anemia: Plan: Acute blood loss from hemathrosis Some improvement following transfusion of 2 units of blood and Iron Monitor (4) Elevated troponin: Plan: Drawn on admission in relation to her dyspnea. Without chest pain. Type II mismatch with anemia and increased HR secondary to anemia and acute illness. - No further needs inpatient. (5) Paroxysmal atrial fibrillation: Plan: Remains on amiodarone without conversion as well as Eliquis. - Patient states she takes 2 (200mg tabs BID)- for 400mg this would be within her time frame for loading dose, will keep 400mg BID - Was planning for cardioversion as outpatient but appears to have gotten post poned secondary to influenza. - Presently in afib in 60 - 70s. -> Per ortho, can resume anticoagulation. (6) CHF (congestive heart failure): Plan: HFpEF - not an acute exacerbation. - Appears euvolemic Monitor I/O, daily weight (7) Ear pain: Plan: Chronic otitis media - she remains on OTIC drops following myringotomy by ENT. - She continues with right ear pain and continues on her ofloxacin drops until follow up next week (8) Dyslipidemia: Plan: On [place] 3- hold (9) Lymphoma: Plan: Non-hodkins history of- completed radiation/chemotherapy. - She is without current treatment and follows with [facility] (10) Chronic obstructive pulmonary disease: Plan: Stable on home oxygen - this is not an acute exacerbation of her COPD - Continue home inhalers and oxygen (11) Nausea: Plan: Chronic following her chemotherapy for breast cancer - has gotten worse over the past month or so- also noted that this may be related to the same time of oral potassium - Evaluate symptoms and follow - None today. Possibly due to KCl supplement? Plan: For rehab on Saturday Admission and Anticipated Discharge Date Admission Date: November 13, 2021 Subjective patient seen and examined today, says knee pain is much better, looking foward to rehab Review of Systems Review of Systems: All systems reviewed are negative, apart from the ones contained in the history. Physical Exam Physical Exam: The patient is awake, alert and oriented 3, well developed and well nourished, normocephalic and atraumatic, lying in bed and in no acute distress. HEENT--PERRL, EOMI, mucous membranes and oropharynx mildly dry Neck--supple. No JVD. No bruits. Thyroid normal, trachea midline, no adenopathy. Heart--normal S1 and S2. No murmurs, rubs or gallops. Lungs--clear bilaterally, no respiratory distress, no accessory muscle use. Abdomen--normal bowel sounds and soft. Mild epigastric and left sided abdominal pain Extremities--left knee in kenny bandage Dermatologic--normal skin turgor, normal color, no abnormal lymph nodes, no rash. Neurologic--cranial nerves II through XII grossly intact. Rheumatologic--normal range of motion. Psychiatric--normal affect. Results & Data Results & Data ([facility]) Vital Signs (Past 12 Hours) Vital Signs Temp Pulse Pulse Resp BP Pulse Ox 11/19/21 11:29 98.8 F 64 20 125/55 L 100 11/19/21 07:13 58 L 11/19/21 06:32 97.9 F 62 18 120/65 99 11/19/21 03:37 97.3 F L 63 18 138/74 100 PG Care Time/CCT Total # of Minutes Spent Total Time Spent with Patient: Total time spent is greater than 50% in coordination of care (as documented) at patient's floor/unit and/or counseling patient: Coding Level of Care Code 67015 Subseq Hosp Care Lvl 2 Diagnoses Hemarthrosis, left knee M25.062 Left knee pain M25.562 Anemia D64.9 Elevated troponin R77.8 Paroxysmal atrial fibrillation I48.0 CHF (congestive heart failure) I50.9 Heart failure chronicity: acute on chronic Heart failure type: unspecified Ear pain H92.09 Dyslipidemia E78.5 Lymphoma C85.90 Lymphoma type: non-Hodgkin Non-Hodgkin lymphoma type: unspecified type Lymphoma site: unspecified region Chronic obstructive pulmonary disease J44.9 Nausea R11.0 Time Spent (min) 35 (1) CHF (congestive heart failure) Heart failure chronicity: acute on chronic Heart failure type: unspecified Qualified Code(s): I50.9 - Heart failure, unspecified (2) Lymphoma Lymphoma type: non-Hodgkin Non-Hodgkin lymphoma type: unspecified type Lymphoma site: unspecified region Qualified Code(s): C85.90 - Non-Hodgkin lymphoma, unspecified, unspecified site
[2021-11-19] MEDS: CYANOCOBALAMIN (B-12) 500 MCG TABLET PO SCH (21:10)
[2021-11-19] MEDS: MIRABEGRON ER 25 MG TAB PO SCH (21:15)
[2021-11-20 07:18] LABS: Hematocrit (blood only) 29.1 % (37-47); Hemoglobin 8.8 g/dL (12.0-16.0); Mean Corpuscular Hemoglobin 27.5 pg (25-34); Mean Corpuscular Hgb Conc 30.2 g/dL (32-36); Mean Corpuscular Volume 90.9 fL (80-100); Mean Platelet Volume 9.7 fL (7.4-10.4); Platelet Count 227 K/uL (130-400); RDW Coefficient of Variation 20.9 % (11.5-14.5); White Blood Count 4.74 K/uL (4.8-10.8)
[2021-11-20] MEDS: NYSTATIN POWDER 15GM BTL EXT SCH ×2 (07:31→21:23)
[2021-11-20 07:32] LABS: Creatinine Clr Calc Pharmacy 41.5 ml/min; Est GFR (African American) 51.1 ml/min; Est GFR (Non-African American) 44.1 ml/min
[2021-11-20] MEDS: UMECLIDINIUM/VILANTEROL 62.5/25MCG 7 PUFFS/INHALER INH SCH (07:32)
[2021-11-20] MEDS: PANTOprazole 40 MG TAB PO SCH ×2 (07:32→21:23)
[2021-11-20] MEDS: APIXABAN 5 MG TABLET PO SCH ×2 (07:32→21:22)
[2021-11-20] MEDS: amLODIPine BESYLATE 5 MG TAB PO SCH (07:32)
[2021-11-20] MEDS: CHOLECALCIFEROL 1,000 UNITS 25 MCG TAB PO SCH (07:32)
[2021-11-20] MEDS: FLUTICASONE PROPIONATE NA SPR 16 GM BTL SCH (07:32)
[2021-11-20] MEDS: AMIODARONE 200 MG TAB PO SCH ×2 (07:32→21:20)
[2021-11-20] MEDS: CALCIUM 600MG + VIT D 400 IU TAB PO SCH (07:32)
[2021-11-20] MEDS: METOPROLOL TARTRATE 25 MG TAB PO SCH ×2 (07:33→21:20)
--- NOTE | 2021-11-20 12:10 | Hospitalist Progress Note ---
Date of Service November 20, 2021 Assessment & Plan (1) Hemarthrosis, left knee: Plan: Post Op day 4 s/p evacuation of hematoma and meniscectomy Patient is doing well post surgery says knee pain has significantly reduced Weight bearing as tolerated Participating in PT Plan is for Rehab when accepted Outpatient follow up with Ortho [facility] (2) Left knee pain: Plan: Acute left knee pain with edema. Due to hemarthrosis. - Duplex from OSH reported as negative- on chart - Knee CT on 11/13 showed "Complex suprapatellar effusion measuring greater than simple fluid density." - Orthopedics consulted - Evacuation on 11/16. Meniscal tear found and cauterized. Per ortho, ok to resume anticoagulation today. Plan for [place] on Saturday. (3) Anemia: Plan: Acute blood loss from hemathrosis Some improvement following transfusion of 2 units of blood and Iron Monitor (4) Elevated troponin: Plan: Drawn on admission in relation to her dyspnea. Without chest pain. Type II mismatch with anemia and increased HR secondary to anemia and acute illness. - No further needs inpatient. (5) Paroxysmal atrial fibrillation: Plan: Remains on amiodarone without conversion as well as Eliquis. - Patient states she takes 2 (200mg tabs BID)- for 400mg this would be within her time frame for loading dose, will keep 400mg BID - Was planning for cardioversion as outpatient but appears to have gotten postponed secondary to influenza. - Presently in afib in 60 - 70s. -> Per ortho, can resume anticoagulation. (6) CHF (congestive heart failure): Plan: HFpEF - not an acute exacerbation. - Appears euvolemic Monitor I/O, daily weight (7) Ear pain: Plan: Chronic otitis media - she remains on OTIC drops following myringotomy by ENT. 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 - She is without current treatment and follows with [facility] (10) Chronic obstructive pulmonary disease: Plan: Stable on home oxygen - this is not an acute exacerbation of her COPD - Continue home inhalers and oxygen (11) Nausea: Plan: Chronic following her chemotherapy for breast cancer - has gotten worse over the past month or so- also noted that this may be related to the same time of oral potassium - Evaluate symptoms and follow - None today. Possibly due to KCl supplement? Plan: For rehab on Saturday Admission and Anticipated Discharge Date Admission Date: November 13, 2021 Subjective patient seen and examined today, says knee pain is much better, looking foward to rehab, sitting up in the chair Review of Systems Review of Systems: All systems reviewed are negative, apart from the ones contained in the history. Physical Exam Physical Exam: The patient is awake, alert and oriented 3, well developed and well nourished, normocephalic and atraumatic, HEENT--PERRL, EOMI, mucous membranes and oropharynx mildly dry Neck--supple. No JVD. No bruits. Thyroid normal, trachea midline, no adenopathy. Heart--normal S1 and S2. No murmurs, rubs or gallops. Lungs--clear bilaterally, no respiratory distress, no accessory muscle use. Abdomen--normal bowel sounds and soft. Mild epigastric and left sided abdominal pain Extremities--left knee in kenny bandage Dermatologic--normal skin turgor, normal color, no abnormal lymph nodes, no rash. Neurologic--cranial nerves II through XII grossly intact. Rheumatologic--normal range of motion. Psychiatric--normal affect. Results & Data Results & Data ([facility]) Vital Signs (Past 12 Hours) Vital Signs Temp Pulse Resp BP Pulse Ox 11/20/21 07:42 97.7 F 64 20 145/67 H 95 11/20/21 02:35 98.1 F 66 20 113/62 100 PG Care Time/CCT Total # of Minutes Spent Total Time Spent with Patient: Total time spent is greater than 50% in coordination of care (as documented) at patient's floor/unit and/or counseling patient: Coding Level of Care Code 72427 Subseq Hosp Care Lvl 2 Diagnoses Hemarthrosis, left knee M25.062 Left knee pain M25.562 Anemia D64.9 Elevated troponin R77.8 Paroxysmal atrial fibrillation I48.0 CHF (congestive heart failure) I50.9 Heart failure chronicity: acute on chronic Heart failure type: unspecified Ear pain H92.09 Dyslipidemia E78.5 Lymphoma C85.90 Lymphoma type: non-Hodgkin Non-Hodgkin lymphoma type: unspecified type Lymphoma site: unspecified region Chronic obstructive pulmonary disease J44.9 Nausea R11.0 Time Spent (min) 35 (1) CHF (congestive heart failure) Heart failure chronicity: acute on chronic Heart failure type: unspecified Qualified Code(s): I50.9 - Heart failure, unspecified (2) Lymphoma Lymphoma type: non-Hodgkin Non-Hodgkin lymphoma type: unspecified type Lymphoma site: unspecified region Qualified Code(s): C85.90 - Non-Hodgkin lymphoma, unspecified, unspecified site
[2021-11-20] MEDS: HYDROCODONE/ACETAMOPHEN 5/325MG TAB PO PRN ×2 (14:34→21:27)
[2021-11-20] MEDS: ACETAMINOPHEN 325 MG TAB PO PRN (17:09)
[2021-11-20] MEDS: MIRABEGRON ER 25 MG TAB PO SCH (21:19)
[2021-11-20] MEDS: CYANOCOBALAMIN (B-12) 500 MCG TABLET PO SCH (21:22)
[2021-11-21] MEDS: ACETAMINOPHEN 325 MG TAB PO PRN (03:48)
[2021-11-21] MEDS: AMIODARONE 200 MG TAB PO SCH (08:29)
[2021-11-21] MEDS: amLODIPine BESYLATE 5 MG TAB PO SCH (08:29)
[2021-11-21] MEDS: APIXABAN 5 MG TABLET PO SCH (08:30)
[2021-11-21] MEDS: FLUTICASONE PROPIONATE NA SPR 16 GM BTL SCH (08:30)
[2021-11-21] MEDS: METOPROLOL TARTRATE 25 MG TAB PO SCH (08:30)
[2021-11-21] MEDS: CHOLECALCIFEROL 1,000 UNITS 25 MCG TAB PO SCH (08:30)
[2021-11-21] MEDS: CALCIUM 600MG + VIT D 400 IU TAB PO SCH (08:30)
[2021-11-21] MEDS: PANTOprazole 40 MG TAB PO SCH (08:31)
[2021-11-21] MEDS: NYSTATIN POWDER 15GM BTL EXT SCH (08:31)
[2021-11-21] MEDS: HYDROCODONE/ACETAMOPHEN 5/325MG TAB PO PRN (08:42)
[2021-11-21] MEDS: UMECLIDINIUM/VILANTEROL 62.5/25MCG 7 PUFFS/INHALER INH SCH (10:14)
--- NOTE | 2021-11-21 11:35 | Discharge Summary ---
Date of Service November 21, 2021 Admission HPI Per Admitting Provider 80 YOF with medical history of: Iron deficiency anemia, non-Hodgkin lymphoma (remission since 2017), GERD, Afib (on Eliquis), HTN, CVA, lumbar stenosis, nocturnal hypoxia, home oxygen use, CKD IIIb. Patient comes to the EMD today secondary to left knee pain and feeling more dyspneic and tired at home. The patient originally called her PCP this morning and was evaluated for her knee pain and swelling. She was deferred to the EMD for pain control and workup of her left leg. The patient originally went to [facility]. She was evaluated in the EMD there with CXR, labs, and Ultrasound of her left leg and plain films. She was noted to have small joint effusion of the left knee and medial and lateral menisci chondrocalcinosis. The patient was direct admitted from [place] for her anemia to medical telemetry. The patient arrived with history of left leg pain over the past 2-3 days; she had onset of left hip pain that then radiated down to her left knee, where her swelling of her left knee got worse to the point where she could not walk on it. This remains in her left hip down to her knee with pain and edema. There is no erythema, she reports that she has not fallen or had any other trauma- her left lower extremity duplex from above is reported as no evidence of acute DVT in the lower extremity. She endorses that she has not really felt better since her iron infusion of ferumoxytol, she thought this was related to her infusion. Overall the patient's leg is swollen with pain to the knee above and below as well as pain in her left hip. She denies any changes in her bowels and no evidence of acute bleeding. Her HGB on arrival was 6.7. Will obtain CT of the abdomen and pelvis to rule out occult retroperitoneal bleed as well as her left hip, and will obtain CT of the left knee. Transfuse 2 units PRBC. Follow [facility]. COVID test reported as negative from OSH- test pending on admission She did have influenza in September. Principal Diagnosis left knee hemarthrosis Discharge Exam The patient is awake, alert and oriented 3, well developed and well nourished, normocephalic and atraumatic, HEENT--PERRL, EOMI, mucous membranes and oropharynx mildly dry Neck--supple. No JVD. No bruits. Thyroid normal, trachea midline, no adenopathy. Heart--normal S1 and S2. No murmurs, rubs or gallops. Lungs--clear bilaterally, no respiratory distress, no accessory muscle use. Abdomen--normal bowel sounds and soft. Mild epigastric and left sided abdominal pain Extremities--left knee in kenny bandage Dermatologic--normal skin turgor, normal color, no abnormal lymph nodes, no rash. Neurologic--cranial nerves II through XII grossly intact. Rheumatologic--normal range of motion. Psychiatric--normal affect. Discharge Data Allergies Allergy/AdvReac Type Severity Reaction Status Date / Time dexamethasone Allergy Severe Shortness Verified 11/13/21 10:54 of Breath, throat constriction Sulfa (Sulfonamide Allergy Severe HIVES Verified 11/13/21 10:54 Antibiotics) adhesive tape Allergy Intermediate redness, Verified 11/13/21 10:54 irritation, peels skin off amoxicillin Allergy Unknown hives Verified 11/13/21 10:54 azithromycin Allergy Unknown Hives Verified 11/13/21 10:54 [From Zithromax Z-Siddhartha] clavulanic acid Allergy Unknown hives Verified 11/13/21 10:54 meperidine Allergy Unknown HIVES Verified 11/13/21 10:54 Penicillins Allergy Unknown hives Verified 11/13/21 10:54 cephalexin [From Keflex] Allergy Verified 11/13/21 10:54 ciprofloxacin [From Cipro] AdvReac Severe Vomiting Verified 11/13/21 10:54 codeine AdvReac Unknown NAUSEA AND Verified 11/13/21 10:54 VOMITING ketorolac AdvReac Unknown 'increased Verified 11/13/21 10:54 bleeding' Consultations 11/13/21 20:31 Consult Orthopedic Surgery Routine 11/15/21 16:04 Consult Anesthesiology Routine Procedures Performed Operation Date: 11/16/21 07:00 Actual Procedures p Left Knee Arthroscopy, irrigation and debridement washout, partial lateral meniscectomy(Left) - Porter Lyon DO Ordered Studies 11/13/21 18:08 CT abd pelvis wo con Urgent CT knee LT wo con Urgent Hospital Course (1) Hemarthrosis, left knee: Post Op day 5 s/p evacuation of hematoma and meniscectomy Patient is doing well post surgery says knee pain has significantly reduced Weight bearing as tolerated Participating in PT Plan is for Rehab when accepted Outpatient follow up with Ortho [facility] (2) Left knee pain: Acute left knee pain with edema. Due to hemarthrosis. - Duplex from OSH reported as negative- on chart - Knee CT on 11/13 showed "Complex suprapatellar effusion measuring greater than simple fluid density." - Orthopedics consulted - Evacuation on 11/16. Meniscal tear found and cauterized. Per ortho, ok to resume anticoagulation today. Plan for [place] on Saturday. (3) Anemia: Acute blood loss from hemathrosis Some improvement following transfusion of 2 units of blood and Iron Monitor (4) Elevated troponin: Drawn on admission in relation to her dyspnea. Without chest pain. Type II mismatch with anemia and increased HR secondary to anemia and acute illness. - No further needs inpatient. (5) Paroxysmal atrial fibrillation: Remains on amiodarone without conversion as well as Eliquis. - Patient states she takes 2 (200mg tabs BID)- for 400mg this would be within her time frame for loading dose, will keep 400mg BID - Was planning for cardioversion as outpatient but appears to have gotten postponed secondary to influenza. - Presently in afib in 60 - 70s. -> Per ortho, can resume anticoagulation. (6) CHF (congestive heart failure): HFpEF - not an acute exacerbation. - Appears euvolemic Monitor I/O, daily weight (7) Ear pain: Chronic otitis media - she remains on OTIC drops following myringotomy by ENT. - She continues with right ear pain and continues on her ofloxacin drops until follow up next week (8) Dyslipidemia: On [place] 3- hold (9) Lymphoma: Non-hodkins history of- completed radiation/chemotherapy. - She is without current treatment and follows with [facility] (10) Chronic obstructive pulmonary disease: Stable on home oxygen - this is not an acute exacerbation of her COPD - Continue home inhalers and oxygen (11) Nausea: Chronic following her chemotherapy for breast cancer - has gotten worse over the past month or so- also noted that this may be related to the same time of oral potassium - Evaluate symptoms and follow - None today. Possibly due to KCl supplement? For rehab on Saturday Total Time Total Time Spent Total Time Spent (In Minutes): 35 Discharge Plan Discharge Items Patient Disposition: Transfer [facility] Fac Reason For Visit: Left knee hemarthrosis Discharge Diagnosis: Left knee hemarthrosis Activity: Per Instructions section Non-emergency contact: Primary Care Provider and Surgeon Call non-emergency contact if: your symptoms worsen and your temperature is above 101 Follow-up/Referrals: Li Miner MD [Primary Care Provider] - Porter Lyon DO [Surgeon] - 11/28/21 1:50 pm (Please follow up with Dr. Lyon or his PA, Vishnu Heard at this time for surgery follow-up.) Diet: Heart Healthy and Low Sodium (2gm) Addtl Attending Provider Instructions: Please follow up with Dr. Porter Lyon or his PA, Vishnu Heard on November 28 at 1:50pm for surgery follow-up. Addtl Credit Collections Analyst Provider Instructions: ACTIVITY RECOMMENDATIONS: * You may walk on the leg with or without crutches as comfort permits. * Bending of the knee should start at once. * Do not shower for 48 hours following surgery. SPECIAL CARE INSTRUCTIONS: * You may cleanse the skin adjacent to the small wounds with soap and water at the time of the first dressing change. * The application of an ice bag to the front and sides of the knee will decrease swelling and discomfort for the first 48 hours. * The small incisions may be sore and develop bruising. This bruising does not require any special care. SPECIAL PRECAUTIONS: * If you experience unusual pain unrelieved by prescriptions, temperature elevation (100 degrees F. or above) or progressive swelling or bleeding, you should contact our office at for further evaluation. * You may have been prescribed pain medication. If you experience nausea and/or fine skin rash, discontinue this medication and contact our office at for an alternate medication. DRESSING: * Dressing should be comfortable and absorb any leakage of fluid and/or blood. * The dressing may become moist or bloodstained. * Dressing may be removed 72 after surgery and bandaids placed over the small surgical incisions. If can be removed sooner if it becomes very soiled or loose. * Bandaids may be used over next several days as needed and can be discontinued when there is not further drainage from the wounds. FOLLOW UP VISIT: If appointment is not already scheduled: Please call [facility] to make a follow-up appointment for 10-14 days after your surgery at . Pending Studies at Discharge: No Stand-Alone Forms: My [facility] Skilled Items Patient informed of condition?: Yes DNR: Yes Discharge Level of Care: Skilled Communicable Disease: No Discharge Prognosis: Improving Lines: None Urinary Catheter: No Medications and DC Order Prescriptions: Continued ipratropium-albuterol 0.5 mg-3 mg(2.5 mg base)/3 mL solution for nebulization 3 ml inhalation Q4H PRN (Reason: COPD) Qty: 180 RF: 5 (DME) Oxygen Home Liters Per Minute See Rx Instructions .Route Qty: 1 RF: 0 amlodipine [Norvasc] 2.5 mg tablet 2.5 mg PO QAM Qty: 90 RF: 3 pantoprazole 40 mg tablet,delayed release (DR/EC) 40 mg PO BID Qty: 60 RF: 2 loperamide 2 mg capsule 2 mg PO Q4H PRN (Reason: diarrhea) Qty: 30 RF: 3 metoprolol tartrate 25 mg tablet 12.5 mg PO BID Qty: 90 RF: 3 ondansetron 4 mg tablet,disintegrating 4 mg PO Q6H PRN (Reason: nausea and vomiting) Qty: 30 RF: 1 mupirocin 2 % ointment See Rx Instructions topical BID Qty: 15 RF: 1 Myrbetriq 50 mg tablet extended release 24 hr 50 mg PO HS RF: 0 acetaminophen [Tylenol Extra Strength] 500 mg tablet 1,000 mg PO HS RF: 0 nystatin 100,000 unit/gram powder 1 applic topical BID Qty: 60 RF: 0 cinnamon bark 500 mg capsule 1,000 mg PO QAM RF: 0 omega-3 acid ethyl esters 1 gram capsule 1 cap PO QAM RF: 0 cholecalciferol (vitamin D3) 1,000 unit tablet 1,000 units PO QAM RF: 0 calcium carbonate-vitamin D3 [Calcium with Vitamin D] 600 mg(1,500mg) -400 unit tablet 1 tab PO QAM RF: 0 cyanocobalamin (vitamin B-12) 1,000 mcg capsule 1,000 mcg PO HS RF: 0 potassium chloride 10 mEq tablet,ER particles/crystals 10 meq PO QAM RF: 0 mometasone 50 mcg/actuation spray,non-aerosol 2 spray intranasal QAM RF: 0 budesonide 0.5 mg/2 mL suspension for nebulization 0.5 mg inhalation BID PRN (Reason: sob) RF: 0 Stiolto Respimat 2.5-2.5 mcg/actuation mist 2 puff inhalation QAM RF: 0 Eliquis 5 mg tablet 5 mg PO BID RF: 0 albuterol sulfate [Ventolin HFA] 90 mcg/actuation HFA aerosol inhaler 2 puff inhalation TID PRN (Reason: shortness of breath or wheezing) RF: 0 furosemide 40 mg tablet 80 mg PO BID RF: 0 amiodarone 200 mg tablet 400 mg PO BID RF: 0 Discharge Orders: Discharge Order (Routine); Ordered 11/21/21 Ordered By: Chastity Herrera Admission Data Admit Date/Time: 11/13/21 16:42 Attending Provider: Chastity Herrera Admit Provider: Shan Clark Primary Care Provider: Li Miner Other Providers: Milo Cheatham ; Nito Forrest Coding Level of Care Code D/C DAY MANAGEMENT >30 MINS Diagnoses Hemarthrosis, left knee M25.062 Left knee pain M25.562 Anemia D64.9 Elevated troponin R77.8 Paroxysmal atrial fibrillation I48.0 CHF (congestive heart failure) I50.9 Heart failure chronicity: acute on chronic Heart failure type: unspecified Ear pain H92.09 Dyslipidemia E78.5 Lymphoma C85.90 Lymphoma type: non-Hodgkin Non-Hodgkin lymphoma type: unspecified type Lymphoma site: unspecified region Chronic obstructive pulmonary disease J44.9 Nausea R11.0 Time Spent (min) 35
--- NOTE | 2021-11-21 11:39 | XRay Report ---
LEFT KNEE 2 VIEWS HISTORY: Left knee pain. follow up COMPARISON: None. FINDINGS: No definite acute fracture or dislocation within the left knee. There is diffuse soft tissu e swelling and chondrocalcinosis again noted. There is mild tricompartmental osteoarthritis. A large suprapatellar effusion persists. No radiopaque foreign bodies. IMPRESSION: 1. No definite acute fractures identified within the left knee. 2. A large suprapatellar knee effusion persists. ACT 112: Negative or not required by law. Electronically signed by: Braxton Capps M.D. 11/21/2021 11:37 AM
== END 2021-11-21 13:10 | DRG 488 ==
LOC: 2N 16:33 → SUATTDRO 16:42

== ENCOUNTER 2022-08-31 12:41 | Inpatient (IN) ==
[2022-08-31] MEDS ORDERED: SODIUM CHLORIDE 0.9% 500 ML IV SCH (13:30)
--- NOTE | 2022-08-31 13:36 | Emergency Department Note ---
Impression & Plan Weakness, Anemia, Elevated troponin, Thrombocytopenia ED Provider Note NAME: SHERI MURRAY AGE: 81 SEX: F : 1940 ARRIVES VIA: Walk-In INFORMANT: [Patient][family] ED PROVIDER(S): [Gallito Varghese MD] CHIEF COMPLAINT: Illness HISTORY OF PRESENT ILLNESS: The patient is a 81-year-old female with a history of low platelets and GI bleeding. She was discharged from [facility] on 23 August, about a week ago. The patient states that her hemoglobin on discharge was 7.6 and her platelet count was 26. She has not had any repeat laboratory testing since discharge. The patient complains of increasing weakness and fatigue. She has had some chills and some nausea. No fever, no increased cough or congestion. No chest pain. The patient was referred today with concerns for worsening laboratory values. Of note, the patient is no longer on any blood thinning agents. PMHx/PSHx: See Below SOCIAL HISTORY: See Below. PHYSICAL EXAM: GENERAL: Patient is in no acute distress. HEENT: No acute trauma, normocephalic atraumatic, mucous membranes moist, no nasal congestion. NECK: No stridor, no adenopathy, no meningismus, trachea is midline. LUNGS: Clear to auscultation bilaterally, no wheeze, no rhonchi, breath sounds equal. HEART: Irregular rhythm, normal rate, no obvious murmur. ABDOMEN: Soft, nontender, bowel sounds positive, no peritonitis. EXTREMITIES: No cyanosis, mild bilateral pedal edema, full range of motion of all the joints without pain or difficulty, no signs for acute trauma. NEUROLOGIC: Oriented x 3, no acute motor or sensory deficits, no focal weakness. SKIN: No rash, no jaundice, no diaphoresis. Pale. DIFFERENTIAL DIAGNOSIS: GI bleeding, anemia, electrolyte imbalance, thrombocytopenia, pneumonia, viral illness, renal or liver failure, among others. EMERGENCY DEPARTMENT COURSE/PROCEDURES: Prior/Outside records reviewed: Recent discharge summary. ECG per my interpretation: Indication was weakness. The ECG shows atrial fibrillation with a rate of 103. A PVC was noted. There was some nonspecific ST change. LVH was seen. No ST elevation. QTc was 450 Continuous Cardiac Monitoring per my interpretation: An order was placed for continuous cardiac monitoring. The monitor shows a rate of 105 with atrial fibrillation. Critical Care Note: I have personally spent 41 minutes of critical care time in the direct management of this patient. This includes bedside care, interpretation of diagnostic studies, and testing, discussion with consultants, patient, and family members, and other required patient management activities. This 41 minutes is in excess of all separately billable procedures. MEDICAL DECISION MAKING: There is no leukocytosis. The patient is quite anemic with a hemoglobin of 6. This is a drop when compared to her recent testing. Platelet count was low at 21, lower than her reported recent result. There was no coagulopathy. Creatinine was slightly high at 1.48, the patient has a history of some renal insufficiency. There is no significant liver enzyme elevation. TSH was low however, the T4 was normal. ECG showed atrial fibrillation, no obvious ST elevation. Cardiac enzyme testing x1 was slightly elevated. This elevation could be secondary to cardiac injury/strain or potentially mismatch. Chest x- ray per my review did not show pneumonia, CHF or pneumothorax. On exam, the patient did appear pale. The patient is in need of hospitalization. She is going to require packed red blood cell transfusions. She may require a platelet transfusion. The patient was given a 500 cc saline bolus. She was given IV Protonix as she by report has a history of GI bleeding. Patient was ordered for 1 unit of packed red blood cells to be transfused while here in the ED, the appropriate paperwork for the transfusion was completed and signed. I did speak with Dr. Luis of hematology. The patient can be seen by her or her group in consult. Hospitalization through the hospitalist service was recommended. I spoke with the patient and case management, the on-call hospitalist was consulted. DISPOSITION: Patient presentation and findings warrant a hospital stay. Past Med/Surg History Medical History Acid reflux disease Anemia Anticoagulant long-term use Biceps muscle tear Chest pain syndrome Chronic otitis media of left ear with effusion Chronic pain of left upper extremity SHOULDER Chronic respiratory failure with hypoxia Degenerative disc disease Dyspnea on exertion Esophageal dysmotility ETD (eustachian tube dysfunction) Folic acid deficiency Hemarthrosis, left knee History of breast cancer right breast cancer -- CHEMO. sx. History of stroke 2014. Small chronic lacunar infarct noted on 03/[address] no residual. Hypertension Hypokalemia Lumbar stenosis with neurogenic claudication Nephrolithiasis HX OF Nocturnal hypoxia Non-Hodgkin lymphoma 2017 - CHEMO AND RADIATION On home O2 3 LPM cont Osteoarthritis Pancytopenia Paroxysmal atrial fibrillation hx mult cardioversions; on eliquis; follows with Dr. Sullivan Peripheral neuropathy Pneumonia Port-A-Cath in place HAS IT FLUSHED EVERY 6 WEEKS Rosacea Scoliosis Spinal stenosis Stage 3 chronic kidney disease Stress incontinence Thrombocytopenia Thyroid nodule Vitamin D deficiency Surgical History H/O colonoscopy H/O dilation and curettage multiple H/O: hysterectomy EVELIA History of appendectomy History of back surgery lumbar fusion History of bladder surgery bladder tack History of bronchoscopy History of cardioversion History of esophagogastroduodenoscopy (EGD) History of lobectomy of lung Left upper lobe r/t nodule (granuloma) History of mastectomy right with lymph node removal History of tonsillectomy S/P cervical spinal fusion x2 (1970's) unsure of levels. ROM WNL S/P cholecystectomy S/P thyroid biopsy negative Status post arthroscopy of left knee Family History Mother Coronary heart disease Cancer Atrial fibrillation Heart disease Hypertension Father Coronary heart disease Myocardial infarction Cancer Heart disease Hypertension Aunt Cancer Brother Prostate cancer Son Bladder cancer Other No family history of adverse response to anesthesia No family history of bleeding disorder Stroke Denies family history of Ovarian cancer Hearing loss Kidney disease Breast cancer Colorectal cancer Asthma Social History Smoking Status: Never smoker Second Hand Exposure: Yes (Spouse smoked); Hx Alcohol Use: No Hx Substance Use: No Preferred Language: Croatian Communication Ability: Effective Visual Impairment: Partially Limited Hearing Ability: Normal Community Midwife Required: No Beliefs That Will Affect Care: None marital status: / Current Living Situation: Alone current occupational status: retired How many Children do You have: 1 Feels Safe at Home: Yes and No Is there a partner from a previous relationship who is making you feel unsafe now?: No Any Concerns about Your Family Situation: No Would You Like to Speak to Someone About Your Situation: No Safety Concerns: Feels Safe At This Time Childhood Exposure to Second-Hand Smoke: No caffeine: No (daria mariana, pepsi) Dental Care, Regularly: No Physical Activity Frequency: Daily Physical Activity Frequency Comment: Does exercises that PT taught her. Seatbelt Use: always Sunscreen Use: No Do you think of yourself as: straight/heterosexual Gender Identity: Female Assistive Devices: Denture - Lower, Glasses, Oxygen - Continuous and Walker Allergies Allergies Allergy/AdvReac Type Severity Reaction Status Date / Time dexamethasone Allergy Severe Shortness Verified 08/31/22 11:41 of Breath, throat constriction Sulfa (Sulfonamide Allergy Severe HIVES Verified 08/31/22 11:41 Antibiotics) adhesive tape Allergy Intermediate redness, Verified 08/31/22 11:41 irritation, peels skin off amoxicillin Allergy Unknown hives Verified 08/31/22 11:41 azithromycin Allergy Unknown Hives Verified 08/31/22 11:41 [From Zithromax Z-Siddhartha] clavulanic acid Allergy Unknown hives Verified 08/31/22 11:41 meperidine Allergy Unknown HIVES Verified 08/31/22 11:41 Penicillins Allergy Unknown hives Verified 08/31/22 11:41 cephalexin [From Keflex] Allergy Verified 08/31/22 11:41 ciprofloxacin [From Cipro] AdvReac Severe Vomiting Verified 08/31/22 11:41 codeine AdvReac Unknown NAUSEA AND Verified 08/31/22 11:41 VOMITING ketorolac AdvReac Unknown 'increased Verified 08/31/22 11:41 bleeding' Home Meds Home Medications Medication Instructions Recorded Confirmed acetaminophen 500 mg tablet 500 mg PO HS 06/03/19 08/31/22 (Tylenol Extra Strength) cholecalciferol (vitamin D3) 25 1,000 units PO QAM 07/31/19 08/31/22 mcg (1,000 unit) tablet cinnamon bark 500 mg capsule 1,000 mg PO QAM 07/31/19 08/31/22 cyanocobalamin (vitamin B-12) 1,000 mcg PO HS 07/31/19 08/31/22 1,000 mcg capsule budesonide 0.5 mg/2 mL suspension 0.5 mg inhalation BID PRN 03/24/21 08/31/22 for nebulization Shortness Of Breath Or Wheezing tiotropium 2.5 mcg-olodaterol 2.5 2 puff inhalation QAM 03/24/21 08/31/22 mcg/actuation mist for inhalation (Stiolto Respimat) albuterol sulfate 90 mcg/actuation 2 puff inhalation Q6 PRN shortness 10/06/21 08/31/22 aerosol inhaler (Ventolin HFA) of breath or wheezing potassium chloride 10 mEq 20 meq PO QAM 12/31/21 08/31/22 tablet,extended release(part/cryst) benzocaine 20 % oral mucosal 1 ea mucous membrane UD PRN mouth 08/24/22 08/31/22 liquid (Anbesol (benzocaine) sores Maximum Strength) metoprolol tartrate 25 mg tablet 25 mg PO AMHS 08/24/22 08/31/22 benzonatate 100 mg capsule 100 mg PO TID 08/31/22 08/31/22 calcium carbonate 600 mg-vitamin 1 tab PO QAM 08/31/22 08/31/22 D3 5 mcg (200 unit) tablet camphor 3.1 %-methyl salicylate 10 1 patch topical DAILY 08/31/22 08/31/22 %-menthol 6 % topical patch (Salonpas) ipratropium 0.5 mg-albuterol 3 mg 3 ml inhalation Q4H PRN Shortness 08/31/22 08/31/22 (2.5 mg base)/3 mL nebulization Of Breath Or Wheezing soln mometasone 50 mcg/actuation nasal 2 spray intranasal DAILY 08/31/22 08/31/22 spray omega-3 fatty acids 1,000 mg 1,000 mg PO QAM 08/31/22 08/31/22 capsule ondansetron 4 mg disintegrating 4 mg translingual Q8 PRN Nausea 08/31/22 08/31/22 tablet pantoprazole 40 mg tablet,delayed 40 mg PO AMHS 08/31/22 08/31/22 release Previous Rx's Medication Instructions Recorded Oxygen Home #1 ea 05/11/21 mirabegron 50 mg tablet,extended 50 mg PO HS #90 tabs 12/29/21 release 24 hr (Myrbetriq) loperamide 2 mg capsule 2 mg PO Q4H PRN diarrhea #30 caps 04/15/22 furosemide 40 mg tablet 40 mg PO BID #60 tabs 06/09/22 elevated toilet seat frame #1 ea 08/03/22 Results & Data (ED) Vital Signs Vital Signs - 24 hr 08/31/22 12:51 08/31/22 12:41 08/31/22 12:41 Temperature 37.0 C Temperature Source Temporal Artery Scan Pulse Rate 110 H 76 Pulse Rate [Apical] 86 Pulse Rhythm Regular Pulse Rhythm [Apical] Regular Pulse Strength [Apical] Normal Respiratory Rate 18 20 20 Respiratory Effort / Characteristics Non-Labored Spontaneous Respiratory Depth Normal Normal Blood Pressure 96/52 L Blood Pressure [Left Arm] 122/59 L Blood Pressure Mean 66 Blood Pressure Mean [Left Arm] 80 Blood Pressure Position [Left Arm] Lying Pulse Oximetry 99 100 100 Oxygen Delivery Method Nasal Cannula Room Air Room Air Oxygen Flow Rate 3 Sepsis Recent Fever Within 48 Hours No Sepsis New/Unexplained Change in Mental Status No Sepsis Action Taken by Nursing No Action Required 08/31/22 16:06 08/31/22 13:28 Temperature Temperature Source Pulse Rate 88 Pulse Rate [Apical] 90 Pulse Rhythm Regular Pulse Rhythm [Apical] Pulse Strength [Apical] Respiratory Rate 20 18 Respiratory Effort / Characteristics Non-Labored Respiratory Depth Normal Blood Pressure Blood Pressure [Left Arm] 120/56 L Blood Pressure Mean Blood Pressure Mean [Left Arm] 77 Blood Pressure Position [Left Arm] Pulse Oximetry 100 100 Oxygen Delivery Method Nasal Cannula Nasal Cannula Oxygen Flow Rate 3 3 Sepsis Recent Fever Within 48 Hours Sepsis New/Unexplained Change in Mental Status Sepsis Action Taken by [facility] Medications Current Medication List: was personally reviewed by me Laboratory Data Attestation: I reviewed the patient's lab results. 08/31/22 14:05 08/31/22 14:05 Lab Results 08/31/22 08/31/22 08/31/22 Range/Units 14:05 14:05 14:05 WBC (4.8-10.8) K/ul RBC (4.20-5.40) M/uL Hgb (12.0-16.0) g/dl Hct (37.0-47.0) % MCV (80.0-100.0) fL MCH (25.0-34.0) pg MCHC (32.0-36.0) g/dL RDW Std Deviation (36.4-46.3) fL RDW Coeff of Zackary (11.5-14.5) % Plt Count (130-400) K/uL Immature Gran % (Auto) % Neut % (Auto) % Lymph % (Auto) % [place] % (Auto) % Eos % (Auto) % Baso % (Auto) % Reticulocyte % (Auto) (0.5-2.0) % Neut # (Auto) (1.40-6.50) K/uL Lymph # (Auto) (1.2-3.4) K/uL [place] # (Auto) (0.11-0.59) K/uL Eos # (Auto) (0-0.50) K/uL Baso # (Auto) (0-0.2) K/uL Reticulocyte # (0.02-0.10) 10^6/uL Immature Gran # (Auto) (0.01-0.20) K/uL Platelet Estimate (Normal) PT 11.5 (9.0-12.0) Seconds INR 1.1 (0.9-1.1) APTT 22.2 (21.0-31.0) Seconds PTT Ratio 0.8 Sodium 134 L (136-145) mmol/L Potassium 4.1 (3.5-5.1) mmol/L Chloride 99 (98-107) mmol/L Carbon Dioxide 28 (21-32) mmol/L Anion Gap 7 (3-11) BUN 32 H (6-23) mg/dl Creatinine 1.48 H (0.6-1.2) mg/dl Est Cr Clr Drug Dosing Not Reportable Est GFR ( Amer) 37.8 ml/min Est GFR (Non-Af Amer) 32.6 ml/min BUN/Creatinine Ratio 21.6 H (10-20) Glucose 137 H (70-99(Fasting)) mg/dl Calcium 8.8 (8.5-10.1) mg/dl Magnesium 1.7 (1.7-2.4) mg/dl Iron 110 (35-150) mcg/dl Total Bilirubin 1.4 H (0.2-1.0) mg/dl AST 18 (13-39) U/L ALT 10 (7-52) U/L Alkaline Phosphatase 86 (34-104) U/L Lactate Dehydrogenase (86-244) U/L Troponin I High Sens 37.2 H (0-14) pg/ml Total Protein 6.4 (6.0-8.3) gm/dl Albumin 3.5 (3.4-5.0) gm/dl Globulin 2.9 (2.5-4.0) gm/dl Albumin/Globulin Ratio 1.2 (0.9-2) Vitamin B12 (180-914) pg/ml TSH (0.300-4.500) uIu/ml Free T4 (0.61-1.60) ng/dl SARS-CoV-2 (PCR) (Negative) Influenza Type A (PCR) (Neg) Influenza Type B (PCR) (Neg) RSV (RT-PCR) (Neg) Blood Type O Positive Antibody Screen NEGATIVE Crossmatch See Detail 08/31/22 08/31/22 08/31/22 Range/Units 14:05 14:05 14:05 WBC 5.16 (4.8-10.8) K/ul RBC 1.70 L (4.20-5.40) M/uL Hgb 6.0 L* (12.0-16.0) g/dl Hct 17.9 L* (37.0-47.0) % MCV 105.3 H (80.0-100.0) fL MCH 35.3 H (25.0-34.0) pg MCHC 33.5 (32.0-36.0) g/dL RDW Std Deviation 69.2 H (36.4-46.3) fL RDW Coeff of Zackary 19.0 H (11.5-14.5) % Plt Count 21 L* (130-400) K/uL Immature Gran % (Auto) 4.7 % Neut % (Auto) 40.0 % Lymph % (Auto) 25.4 % [place] % (Auto) 29.5 % Eos % (Auto) 0.0 % Baso % (Auto) 0.4 % Reticulocyte % (Auto) 3.1 H (0.5-2.0) % Neut # (Auto) 2.07 (1.40-6.50) K/uL Lymph # (Auto) 1.31 (1.2-3.4) K/uL [place] # (Auto) 1.52 H (0.11-0.59) K/uL Eos # (Auto) 0.00 (0-0.50) K/uL Baso # (Auto) 0.02 (0-0.2) K/uL Reticulocyte # 0.05 (0.02-0.10) 10^6/uL Immature Gran # (Auto) 0.24 H (0.01-0.20) K/uL Platelet Estimate Signific. Decreased L (Normal) PT (9.0-12.0) Seconds INR (0.9-1.1) APTT (21.0-31.0) Seconds PTT Ratio Sodium (136-145) mmol/L Potassium (3.5-5.1) mmol/L Chloride (98-107) mmol/L Carbon Dioxide (21-32) mmol/L Anion Gap (3-11) BUN (6-23) mg/dl Creatinine (0.6-1.2) mg/dl Est Cr Clr Drug Dosing Est GFR ( Amer) ml/min Est GFR (Non-Af Amer) ml/min BUN/Creatinine Ratio (10-20) Glucose (70-99(Fasting)) mg/dl Calcium (8.5-10.1) mg/dl Magnesium (1.7-2.4) mg/dl Iron (35-150) mcg/dl Total Bilirubin (0.2-1.0) mg/dl AST (13-39) U/L ALT (7-52) U/L Alkaline Phosphatase (34-104) U/L Lactate Dehydrogenase (86-244) U/L Troponin I High Sens (0-14) pg/ml Total Protein (6.0-8.3) gm/dl Albumin (3.4-5.0) gm/dl Globulin (2.5-4.0) gm/dl Albumin/Globulin Ratio (0.9-2) Vitamin B12 (180-914) pg/ml TSH 0.275 L (0.300-4.500) uIu/ml Free T4 1.09 (0.61-1.60) ng/dl SARS-CoV-2 (PCR) (Negative) Influenza Type A (PCR) (Neg) Influenza Type B (PCR) (Neg) RSV (RT-PCR) (Neg) Blood Type Antibody Screen Crossmatch 08/31/22 08/31/22 08/31/22 Range/Units 14:05 14:05 14:14 WBC (4.8-10.8) K/ul RBC (4.20-5.40) M/uL Hgb (12.0-16.0) g/dl Hct (37.0-47.0) % MCV (80.0-100.0) fL MCH (25.0-34.0) pg MCHC (32.0-36.0) g/dL RDW Std Deviation (36.4-46.3) fL RDW Coeff of Zackary (11.5-14.5) % Plt Count (130-400) K/uL Immature Gran % (Auto) % Neut % (Auto) % Lymph % (Auto) % [place] % (Auto) % Eos % (Auto) % Baso % (Auto) % Reticulocyte % (Auto) (0.5-2.0) % Neut # (Auto) (1.40-6.50) K/uL Lymph # (Auto) (1.2-3.4) K/uL [place] # (Auto) (0.11-0.59) K/uL Eos # (Auto) (0-0.50) K/uL Baso # (Auto) (0-0.2) K/uL Reticulocyte # (0.02-0.10) 10^6/uL Immature Gran # (Auto) (0.01-0.20) K/uL Platelet Estimate (Normal) PT (9.0-12.0) Seconds INR (0.9-1.1) APTT (21.0-31.0) Seconds PTT Ratio Sodium (136-145) mmol/L Potassium (3.5-5.1) mmol/L Chloride (98-107) mmol/L Carbon Dioxide (21-32) mmol/L Anion Gap (3-11) BUN (6-23) mg/dl Creatinine (0.6-1.2) mg/dl Est Cr Clr Drug Dosing Est GFR ( Amer) ml/min Est GFR (Non-Af Amer) ml/min BUN/Creatinine Ratio (10-20) Glucose (70-99(Fasting)) mg/dl Calcium (8.5-10.1) mg/dl Magnesium (1.7-2.4) mg/dl Iron (35-150) mcg/dl Total Bilirubin (0.2-1.0) mg/dl AST (13-39) U/L ALT (7-52) U/L Alkaline Phosphatase (34-104) U/L Lactate Dehydrogenase 174 (86-244) U/L Troponin I High Sens (0-14) pg/ml Total Protein (6.0-8.3) gm/dl Albumin (3.4-5.0) gm/dl Globulin (2.5-4.0) gm/dl Albumin/Globulin Ratio (0.9-2) Vitamin B12 > 1500 H (180-914) pg/ml TSH (0.300-4.500) uIu/ml Free T4 (0.61-1.60) ng/dl SARS-CoV-2 (PCR) NEGATIVE (Negative) Influenza Type A (PCR) Negative (Neg) Influenza Type B (PCR) Negative (Neg) RSV (RT-PCR) Negative (Neg) Blood Type Antibody Screen Crossmatch Administered Medications Discontinued Medications Sodium Chloride (Nss) 500 mls @ 999 mls/hr IV .Q31M [place] Stop: 08/31/22 14:00 Last Infusion: 08/31/22 14:47 Dose: 0 mls/hr Documented By: Admin: 08/31/22 14:12 Dose: 999 mls/hr Documented By: TASHA Pantoprazole Sodium 80 mg/ (Dextrose) 100 mls @ 400 mls/hr IV ONE STA Stop: 08/31/22 15:15 Last Infusion: 08/31/22 15:56 Dose: 0 mls/hr Documented By: Admin: 08/31/22 15:30 Dose: 400 mls/hr Documented By: TASHA Imaging Data Radiologist's Impression: Chest X-Ray 08/31/22 13:28 XR chest 1V portable CLINICAL HISTORY: weakness COMPARISON STUDY: Chest radiograph November 13, 2021. Chest CT February 02, 2022. FINDINGS: Left lung volume loss is noted with stable postoperative findings. Left subclavian Wncyut-k-Sosm is in place. Cardiomegaly is stable. There is no evidence for pulmonary edema. There is no consolidation to suggest pneumonia. Right axillary surgical clips are incidentally noted. IMPRESSION: No acute cardiopulmonary findings. No change in appearance of the chest. ACT 112: Negative or not required by law. Electronically signed by: Wilberto Zhong M.D. 08/31/2022 2:18 PM Discharge Plan Visit Data Chief Complaint: Illness Stated Complaint: LOW PLATLETS, LOW RED BLOOD, REF BY DOC ED Provider: Gallito Varghese Discharge Problem: Weakness, Anemia, Elevated troponin, Thrombocytopenia Patient Disposition: Admitted As Inpatient Condition: Fair Discharge Instructions Interventions: ED Discharge Assessment Last Done: 08/31/22 17:39
--- NOTE | 2022-08-31 14:20 | XRay Report ---
XR chest 1V portable CLINICAL HISTORY: weakness COMPARISON STUDY: Chest radiograph November 13, 2021. Chest CT February 02, 2022. FINDINGS: Left lung volume loss is noted with stable postoperative findings. Left subclavian Infuse-a -Port is in place. Cardiomegaly is stable. There is no evidence for pulmonary edema. There is no cons olidation to suggest pneumonia. Right axillary surgical clips are incidentally noted. IMPRESSION: No acute cardiopulmonary findings. No change in appearance of the chest. ACT 112: Negative or not required by law. Electronically signed by: Wilberto Zhong M.D. 08/31/2022 2:18 PM
[2022-08-31 14:49] LABS: Alanine Aminotransferase 10 U/L (7-52); Albumin Globulin Ratio 1.2 (0.9-2); Albumin Level 3.5 gm/dl (3.4-5.0); Alkaline Phosphatase 86 U/L (34-104); Anion Gap 7 (3-11); Aspartate Aminotransferase 18 U/L (13-39); BUN Creatinine Ratio 21.6 (10-20); Bilirubin,Total 1.4 mg/dl (0.2-1.0); Blood Urea Nitrogen 32 mg/dl (6-23); Calcium 8.8 mg/dl (8.5-10.1); Carbon Dioxide 28 mmol/L (21-32); Chloride 99 mmol/L (98-107); Est GFR (African American) 37.8 ml/min; Est GFR (Non-African American) 32.6 ml/min; Globulin 2.9 gm/dl (2.5-4.0); Glucose 137 mg/dl (70-99(Fasting)); Magnesium 1.7 mg/dl (1.7-2.4); Potassium 4.1 mmol/L (3.5-5.1); Sodium 134 mmol/L (136-145); Total Protein 6.4 gm/dl (6.0-8.3)
[2022-08-31 14:52] LABS: Basophils # (auto) 0.02 K/uL (0-0.2); Basophils % (auto) 0.4 %; Hematocrit (blood only) 17.9 % (37.0-47.0); Immature Granulocytes # (auto) 0.24 K/uL (0.01-0.20); Immature Granulocytes % (auto) 4.7 %; Lymphocytes # (auto) 1.31 K/uL (1.2-3.4); Lymphocytes % (auto) 25.4 %; Mean Corpuscular Hemoglobin 35.3 pg (25.0-34.0); Mean Corpuscular Hgb Conc 33.5 g/dL (32.0-36.0); Mean Corpuscular Volume 105.3 fL (80.0-100.0); Monocytes # (auto) 1.52 K/uL (0.11-0.59); Monocytes % (auto) 29.5 %; Neutrophils # (auto) 2.07 K/uL (1.40-6.50); Platelet Count 21 K/uL (130-400); Platelet Estimate Signific. Decreased (Normal); RDW Standard Deviation 69.2 fL (36.4-46.3); White Blood Count 5.16 K/ul (4.8-10.8)
[2022-08-31 14:55] LABS: Troponin I High Sensitivity 37.2 pg/ml (0-14)
[2022-08-31 14:58] LABS: INR 1.1 (0.9-1.1); Partial Thromboplastin Ratio 0.8; Partial Thromboplastin Time 22.2 Seconds (21.0-31.0); Prothrombin Time 11.5 Seconds (9.0-12.0)
[2022-08-31 15:00] LABS: Thyroid Stimulating Hormone 0.275 uIu/ml (0.300-4.500)
[2022-08-31] MEDS ORDERED: PANTOprazole 80 MG in DEXTROSE 5% 100 ML IV STA (15:01)
[2022-08-31] MEDS ORDERED: SODIUM CHLORIDE 0.9% 250 ML IV PRN ×2 (15:09→22:23)
--- NOTE | 2022-08-31 15:23 | Electrocardiogram Report ---
Test Reason : Blood Pressure : / mmHG Vent. Rate : 103 BPM Atrial Rate : 075 BPM P-R Int : 000 ms QRS Dur : 080 ms QT Int : 344 ms P-R-T Axes : 000 -09 -10 degrees QTc Int : 450 ms Atrial fibrillation with rapid ventricular response with premature ventricular or aberrantly conducte d complexes Moderate voltage criteria for LVH, may be normal variant Abnormal ECG When compared with ECG of 13-NOV-2021 17:33, T wave inversion less evident in Anterolateral leads QT has lengthened Confirmed by Rommel Juan ([id number]) on 08/31/2022 3:23:05 PM Referred By: Confirmed By:Rommel Juan
[2022-08-31 15:33] LABS: Influenza A virus by PCR Negative (Neg); Influenza B virus by PCR Negative (Neg); RSV by PCR Negative (Neg); SARS CoV2 RNA(COVID-19) Ceph NEGATIVE (Negative)
[2022-08-31 15:36] LABS: T4 Free Thyroxine 1.09 ng/dl (0.61-1.60)
[2022-08-31 16:25] LABS: Iron 110 mcg/dl (35-150)
[2022-08-31 16:49] LABS: Reticulocyte % 3.1 % (0.5-2.0); Reticulocytes # 0.05 10^6/uL (0.02-0.10)
--- NOTE | 2022-08-31 16:59 | History & Physical Report ---
Date of Service August 31, 2022 Assessment & Plan (1) Acute on chronic anemia: Plan: - Admit to med/tele - Suspect a/c anemia is secondary to GI blood loss, grossly bloody BM while at [facility] and here with heme + stool - Reviewed CBC, hgb of 6.0, serum iron, retic count, haptoglobin, LDH, vitamin B12, and peripheral smear has been ordered - T&C to be transfused 2 units of PRBCs by ER, no Lasix in between d/t marginal BPs - Consult Dr. Allen with whom she has followed in the past and is lead generation specialist, appreciate recommendations * Regular diet for now and NPO after MN in event he will scope her during her stay - Discussed case with Dr. Luis who will see in consult, appreciate recommendations - Transition IV Protonix to 40mg BID (as opposed to Protonix gtt) - Repeat CBC 1 hour after transfusion complete - Repeat CBC in AM as well *moderate to high risk (2) Thrombocytopenia: Plan: - Noted platelet count of 110 in March 2022 and 92 in Jul 2022 - Acute drop to 25,000 in Aug 2022, underwent BM biopsy, results pending - Consulted Dr. Luis, appreciate recommendations - Relates a h/o of ITP in her mother (3) Atrial fibrillation, permanent: Plan: - Currently with variable rate control likely d/t a/c anemia - Resume Metoprolol Tartrate 25mg BID with hold parameters - Previously on Eliquis but this has been discontinued following her discharge from [facility] - Follows with Dr. Kiran (4) Diarrhea: Plan: - Chronic - Continue Imodium PRN (5) Chronic respiratory failure with hypoxia: Plan: - Chronic/stable - Continue 3L of O2 via NC, could actually reduce to 2L as she is currently at 100% on 3L - Goal O2 sat >88-92% - Resume Stiolto Respimat & Duonebs (6) Stage 3 chronic kidney disease: Plan: - Reviewed CMP, she is within her baseline creatinine of 1.4 - Repeat CMP in AM to monitor (7) CHF (congestive heart failure): Plan: - Presently compensated - Hold Lasix 40mg BID for today, may consider resuming tomorrow - No further fluids to be given Plan Labs ordered for tomorrow morning. Will eventually need PT/OT eval prior to discharge home to determine appropriate disposition as she lives alone. Have called to update her son. Above plan of care has been d/w Dr. Londono who will also see and evaluate this patient. Further orders will be implemented as warranted. History of Present Illness Chief Complaint: Shortness of breath, fatigue, weakness Primary Care Provider: Li Miner MD Mrailyn Thao is an 81 yo WF with a history of breast cancer in 1993 s/p lumpectomy and radical R mastectomy as well as a h/o large B-cell lymphoma s/p chemo and radiation that has been in remission since 2017. She has recent history of worsening thrombocytopenia and anemia with a recent hospitalization at [facility] 08/14-08/23. She reports she was taken via EMS to [facility] d/t complaints of shortness of breath. She notes that during that admission, she had a blood count of 7.7 and a platelet count of 25. She was transfused one unit of packed cells and one unit of platelets. She was also trialed on Dexamethasone and IVIG w/o improvement in her platelets. She subsequently underwent a bone marrow biopsy on 08/22 but at time of discharge did not have all of the results back yet. She was encouraged to follow up with hematology locally at [facility]. She has seen Dr. Luis in the past and was to see her as an outpatient but missed her appointment due to coming into the hospital. She notes that since her discharge, she has been progressively more weak, fatigued, poor appetite, and short of breath with exertion. She has been chewing on ice chips a lot as well. She denies chest pain or dyspnea at resent. Has had some nausea but no overt belly pain. She notes that she has chronic diarrhea, was diagnosed with IBS years ago, but doesn't routinely follow with GI. Last EGD/[place] was done in due to rectal bleeding w/o obvious identified source. During her stay at [facility], she was noted to have grossly bloody BM but did not undergo EGD/[place] during that stay. Since her return home, she has not noticed any gross/rhianna blood per rectum. She denies fever/chills. She is chronically on 3L of O2 d/t ILD/COPD. Her work up this afternoon demonstrates a hgb of 6.0 and platelet count of 21,000. She has been typed and crossmatched for 2units of PRBCs by the ER physician and was given a 500 cc bolus of NSS due to a marginal BP of 96/52 and slightly tachycardic in the 110s. Hospitalists have been contacted for admission for further evaluation. Allergies Allergy/AdvReac Type Severity Reaction Status Date / Time dexamethasone Allergy Severe Shortness Verified 08/31/22 11:41 of Breath, throat constriction Sulfa (Sulfonamide Allergy Severe HIVES Verified 08/31/22 11:41 Antibiotics) adhesive tape Allergy Intermediate redness, Verified 08/31/22 11:41 irritation, peels skin off amoxicillin Allergy Unknown hives Verified 08/31/22 11:41 azithromycin Allergy Unknown Hives Verified 08/31/22 11:41 [From Zithromax Z-Siddhartha] clavulanic acid Allergy Unknown hives Verified 08/31/22 11:41 meperidine Allergy Unknown HIVES Verified 08/31/22 11:41 Penicillins Allergy Unknown hives Verified 08/31/22 11:41 cephalexin [From Keflex] Allergy Verified 08/31/22 11:41 ciprofloxacin [From Cipro] AdvReac Severe Vomiting Verified 08/31/22 11:41 codeine AdvReac Unknown NAUSEA AND Verified 08/31/22 11:41 VOMITING ketorolac AdvReac Unknown 'increased Verified 08/31/22 11:41 bleeding' Home Medications Medication Instructions Recorded Confirmed Type acetaminophen 500 mg tablet 500 mg PO HS 06/03/19 08/31/22 History (Tylenol Extra Strength) cholecalciferol (vitamin D3) 25 1,000 units PO QAM 07/31/19 08/31/22 History mcg (1,000 unit) tablet cinnamon bark 500 mg capsule 1,000 mg PO QAM 07/31/19 08/31/22 History cyanocobalamin (vitamin B-12) 1,000 mcg PO HS 07/31/19 08/31/22 History 1,000 mcg capsule budesonide 0.5 mg/2 mL suspension 0.5 mg inhalation BID PRN 03/24/21 08/31/22 History for nebulization Shortness Of Breath Or Wheezing tiotropium 2.5 mcg-olodaterol 2.5 2 puff inhalation QAM 03/24/21 08/31/22 History mcg/actuation mist for inhalation (Stiolto Respimat) Oxygen Home #1 ea 05/11/21 08/31/22 Rx albuterol sulfate 90 mcg/actuation 2 puff inhalation Q6 PRN shortness 10/06/21 08/31/22 History aerosol inhaler (Ventolin HFA) of breath or wheezing mirabegron 50 mg tablet,extended 50 mg PO HS #90 tabs 12/29/21 08/31/22 Rx release 24 hr (Myrbetriq) potassium chloride 10 mEq 20 meq PO QAM 12/31/21 08/31/22 History tablet,extended release(part/cryst) loperamide 2 mg capsule 2 mg PO Q4H PRN diarrhea #30 caps 04/15/22 08/31/22 Rx furosemide 40 mg tablet 40 mg PO BID #60 tabs 06/09/22 08/31/22 Rx elevated toilet seat frame #1 ea 08/03/22 08/31/22 Rx benzocaine 20 % oral mucosal 1 ea mucous membrane UD PRN mouth 08/24/22 08/31/22 History liquid (Anbesol (benzocaine) sores Maximum Strength) metoprolol tartrate 25 mg tablet 25 mg PO AMHS 08/24/22 08/31/22 History benzonatate 100 mg capsule 100 mg PO TID 08/31/22 08/31/22 History calcium carbonate 600 mg-vitamin 1 tab PO QAM 08/31/22 08/31/22 History D3 5 mcg (200 unit) tablet camphor 3.1 %-methyl salicylate 10 1 patch topical DAILY 08/31/22 08/31/22 History %-menthol 6 % topical patch (Salonpas) ipratropium 0.5 mg-albuterol 3 mg 3 ml inhalation Q4H PRN Shortness 08/31/22 08/31/22 History (2.5 mg base)/3 mL nebulization Of Breath Or Wheezing soln mometasone 50 mcg/actuation nasal 2 spray intranasal DAILY 08/31/22 08/31/22 History spray omega-3 fatty acids 1,000 mg 1,000 mg PO QAM 08/31/22 08/31/22 History capsule ondansetron 4 mg disintegrating 4 mg translingual Q8 PRN Nausea 08/31/22 08/31/22 History tablet pantoprazole 40 mg tablet,delayed 40 mg PO AMHS 08/31/22 08/31/22 History release Past Med/Surg History Medical History Acid reflux disease Anemia Anticoagulant long-term use Biceps muscle tear Chest pain syndrome Chronic otitis media of left ear with effusion Chronic pain of left upper extremity SHOULDER Chronic respiratory failure with hypoxia Degenerative disc disease Dyspnea on exertion Esophageal dysmotility ETD (eustachian tube dysfunction) Folic acid deficiency Hemarthrosis, left knee History of breast cancer right breast cancer -- CHEMO. sx. History of stroke 2014. Small chronic lacunar infarct noted on 03/[address] no residual. Hypertension Hypokalemia Lumbar stenosis with neurogenic claudication Nephrolithiasis HX OF Nocturnal hypoxia Non-Hodgkin lymphoma 2016 - CHEMO AND RADIATION On home O2 3 LPM cont Osteoarthritis Pancytopenia Paroxysmal atrial fibrillation hx mult cardioversions; on eliquis; follows with Dr. Sullivan Peripheral neuropathy Pneumonia Port-A-Cath in place HAS IT FLUSHED EVERY 6 WEEKS Rosacea Scoliosis Spinal stenosis Stage 3 chronic kidney disease Stress incontinence Thrombocytopenia Thyroid nodule Vitamin D deficiency Surgical History H/O colonoscopy H/O dilation and curettage multiple H/O: hysterectomy EVELIA History of appendectomy History of back surgery lumbar fusion History of bladder surgery bladder tack History of bronchoscopy History of cardioversion History of esophagogastroduodenoscopy (EGD) History of lobectomy of lung Left upper lobe r/t nodule (granuloma) History of mastectomy right with lymph node removal History of tonsillectomy S/P cervical spinal fusion x2 () unsure of levels. ROM WNL S/P cholecystectomy S/P thyroid biopsy negative Status post arthroscopy of left knee Family History Mother Coronary heart disease Cancer Atrial fibrillation Heart disease Hypertension Father Coronary heart disease Myocardial infarction Cancer Heart disease Hypertension Aunt Cancer Brother Prostate cancer Son Bladder cancer Other No family history of adverse response to anesthesia No family history of bleeding disorder Stroke Denies family history of Ovarian cancer Hearing loss Kidney disease Breast cancer Colorectal cancer Asthma Social History Smoking Status: Never smoker Second Hand Exposure: Yes (Spouse smoked); Hx Alcohol Use: No Hx Substance Use: No Preferred Language: Swedish Communication Ability: Effective Visual Impairment: Partially Limited Hearing Ability: Normal Assistant Media Planner Required: No Beliefs That Will Affect Care: None marital status: / Current Living Situation: Alone current occupational status: retired How many Children do You have: 1 Feels Safe at Home: Yes and No Is there a partner from a previous relationship who is making you feel unsafe now?: No Any Concerns about Your Family Situation: No Would You Like to Speak to Someone About Your Situation: No Safety Concerns: Feels Safe At This Time Childhood Exposure to Second-Hand Smoke: No caffeine: No (daria mariana, pepsi) Dental Care, Regularly: No Physical Activity Frequency: Daily Physical Activity Frequency Comment: Does exercises that PT taught her. Seatbelt Use: always Sunscreen Use: No Do you think of yourself as: straight/heterosexual Gender Identity: Female Assistive Devices: Denture - Lower, Glasses, Oxygen - Continuous and Walker Physical Exam Physical Exam: GENERAL: 81 yo wd/wn elderly WF, nontoxic. NAD. LUNGS: Clear to auscultation bilaterally. CARDIOVASCULAR: Irregular rate and rhythm ABDOMEN: Soft, non-tender and non-distended. Bs normoactive x 4 quad. Rectal exam: heme + SKIN: Pale, dry, intact. No rashes or lesions. Results & Data Results & Data ([facility]) Vital Signs (Past 12 Hours) Vital Signs Temp Pulse Pulse Resp BP BP Pulse Ox 08/31/22 16:06 90 20 120/56 L 100 08/31/22 12:41 76 20 100 08/31/22 12:41 86 20 122/59 L 100 08/31/22 12:51 37.0 C 110 H 18 96/52 L 99 O2 Del Method O2 Flow Rate 08/31/22 16:06 Nasal Cannula 3 08/31/22 12:41 Room Air 08/31/22 12:41 Room Air 08/31/22 12:51 Nasal Cannula 3 Laboratory Results 08/31/22 14:05 08/31/22 14:05 Diagnostic Findings Chest X-Ray 08/31/22 13:28 XR chest 1V portable CLINICAL HISTORY: weakness COMPARISON STUDY: Chest radiograph November 13, 2021. Chest CT February 02, 2022. FINDINGS: Left lung volume loss is noted with stable postoperative findings. Left subclavian [id number] is in place. Cardiomegaly is stable. There is no evidence for pulmonary edema. There is no consolidation to suggest pneumonia. Right axillary surgical clips are incidentally noted. IMPRESSION: No acute cardiopulmonary findings. No change in appearance of the chest. ACT 112: Negative or not required by law. Electronically signed by: Wilberto Zhong M.D. 08/31/2022 2:18 PM ECG Additional Comments: afib rate of 103 with pvcs, no acute ST-T wave changes Code Status & VTE Plan Code Status DNR/DNI Supervising Physician Co-Signing Physician Notes I personally examined the patient and verified all waters points of history and exam, discussed case, and agree with decision making with Slime Amador PAC Very fatigued. Notes she believes she has myelodysplastic syndrome, but also has had several [facility] no endoscopic work-up done at that timeshe believes due to how low her platelets are as well. Vitals noted, in general she is fatigued but no acute distress. HEENT normocephalic atraumatic mucous membranes moist. Breathing unlabored no accessory muscle use good effort. Still pale I am seeing her at the end of the unit of transfusion. No focal neurodeficits. Anemia, thrombocytopenialikely myelodysplasia and/or effects of GI bleeding. Transfuse, stabilize, hematology/GI evaluationsmultidisciplinary approach. Continue to follow closely. Otherwise as above. PG Care Time/CCT Total # of Minutes Spent Total Time Spent with Patient: Total time spent is greater than 50% in coordination of care (as documented) at patient's floor/unit and/or counseling patient: Coding Level of Care Code 65831 INT INP/OBS CARE MIN Diagnoses Acute on chronic anemia D64.9 Thrombocytopenia D69.6 Atrial fibrillation, permanent I48.21 Diarrhea R19.7 Diarrhea type: unspecified type Chronic respiratory failure with hypoxia J96.11 Stage 3 chronic kidney disease N18.3 CHF (congestive heart failure) I50.9 Heart failure chronicity: acute Heart failure type: unspecified (4) Diarrhea Diarrhea type: unspecified type Qualified Code(s): R19.7 - Diarrhea, unspecified (7) CHF (congestive heart failure) Heart failure chronicity: acute Heart failure type: unspecified Qualified Code(s): I50.9 - Heart failure, unspecified
[2022-08-31] MEDS ORDERED: POLYETHYLENE (MIRALAX) 17 GM PACK PO PRN (19:00)
[2022-08-31] MEDS ORDERED: LOPERAMIDE HCL 2 MG CAP PO PRN (19:00)
[2022-08-31] MEDS ORDERED: ALUMINUM/MAGNESIUM SUSP 30 ML UDC PO PRN (19:00)
[2022-08-31] MEDS ORDERED: ALBUT/IPRATROP 3MG/0.5MG NEB 3 ML VIAL INH PRN (19:00)
[2022-08-31] MEDS ORDERED: MAGNESIUM HYDROXIDE SUSP 30 ML UDC PO PRN (19:00)
[2022-08-31] MEDS: ACETAMINOPHEN 325 MG TAB PO PRN (20:10)
[2022-08-31] MEDS: METOPROLOL TARTRATE 25 MG TAB PO SCH (20:11)
[2022-09-01 02:48] LABS: Calcium 8.4 mg/dl (8.5-10.1); Creatinine Clr Calc Pharmacy 36.5 ml/min; Est GFR (African American) 40.8 ml/min; Est GFR (Non-African American) 35.2 ml/min; Magnesium 1.7 mg/dl (1.7-2.4)
[2022-09-01 03:36] LABS: Basophils # (auto) 0.02 K/uL (0-0.2); Basophils % (auto) 0.5 %; Eosinophils # (auto) 0.01 K/uL (0-0.50); Eosinophils % (auto) 0.2 %; Hematocrit (blood only) 22.1 % (37.0-47.0); Hemoglobin 7.6 g/dl (12.0-16.0); Immature Granulocytes # (auto) 0.22 K/uL (0.01-0.20); Immature Granulocytes % (auto) 5.2 %; Lymphocytes # (auto) 1.56 K/uL (1.2-3.4); Lymphocytes % (auto) 36.6 %; Mean Corpuscular Hemoglobin 34.5 pg (25.0-34.0); Mean Corpuscular Hgb Conc 34.4 g/dL (32.0-36.0); Mean Corpuscular Volume 100.5 fL (80.0-100.0); Monocytes # (auto) 0.93 K/uL (0.11-0.59); Monocytes % (auto) 21.8 %; Neutrophils # (auto) 1.52 K/uL (1.40-6.50); Neutrophils % (auto) 35.7 %; RDW Coefficient of Variation 18.5 % (11.5-14.5); RDW Standard Deviation 61.1 fL (36.4-46.3); Toxic Granulation 1+; White Blood Count 4.26 K/ul (4.8-10.8)
[2022-09-01 03:37] LABS: Platelet Count 18 K/uL (130-400)
[2022-09-01 04:33] LABS: Appearance Urine Clear (Clear); Bilirubin Urine Negative (Negative); Blood Urine Negative (Negative); Color Urine Dark Yellow; Glucose Urine UA Negative (Negative); Ketones Urine Negative (Negative); Leukocyte Esterase Urine Negative (Negative); Nitrite Urine Negative (Negative); Protein Urine Negative (Negative); Specific Gravity Urine 1.022 (1.000-1.030); Urobilinogen Urine Negative (Negative)
[2022-09-01 06:42] LABS: Hematocrit (blood only) 21.5 % (37.0-47.0); Hemoglobin 7.5 g/dl (12.0-16.0); Mean Corpuscular Hemoglobin 34.9 pg (25.0-34.0); Mean Corpuscular Hgb Conc 34.9 g/dL (32.0-36.0); Platelet Count 18 K/uL (130-400); RDW Coefficient of Variation 18.4 % (11.5-14.5); RDW Standard Deviation 60.7 fL (36.4-46.3); Red Blood Count 2.15 M/uL (4.20-5.40); White Blood Count 4.41 K/ul (4.8-10.8)
[2022-09-01 07:01] LABS: Basophils # (auto) 0.01 K/uL (0-0.2); Basophils % (auto) 0.2 %; Eosinophils # (auto) 0.01 K/uL (0-0.50); Eosinophils % (auto) 0.2 %; Immature Granulocytes # (auto) 0.27 K/uL (0.01-0.20); Immature Granulocytes % (auto) 6.1 %; Lymphocytes # (auto) 1.46 K/uL (1.2-3.4); Lymphocytes % (auto) 33.1 %; Monocytes # (auto) 0.95 K/uL (0.11-0.59); Monocytes % (auto) 21.5 %; Neutrophils # (auto) 1.71 K/uL (1.40-6.50); Neutrophils % (auto) 38.9 %; Toxic Granulation 1+
[2022-09-01] MEDS: ACETAMINOPHEN 325 MG TAB PO PRN ×2 (08:04→20:07)
[2022-09-01] MEDS: METOPROLOL TARTRATE 25 MG TAB PO SCH ×2 (08:05→20:07)
[2022-09-01] MEDS: PANTOprazole 40 MG in SYRINGE 0 ML IV SCH ×2 (08:05→20:06)
--- NOTE | 2022-09-01 08:36 | Oncology Consultation ---
Date of Consultation September 01, 2022 Assessment & Plan (1) Pancytopenia: (2) Thrombocytopenia: (3) Anemia: Plan Pleasant female with history of breast cancer for which she is s/p mastectomy and 6 cycles of chemotherapy , diffuse large B-cell lymphoma s/p 3 cycles of R-CHOP in May, followed by consolidation radiation treatment. Also has a history of multifactorial anemia which has responded to IV iron supplementation. Patient was recently found to have new onset severe thrombocytopenia and worsening anemia. 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 -Although ferritin is elevated, this is likely due to recent blood transfusion. Suspect that she has iron deficiency given history of at least 2 episodes of hematochezia and she describes symptoms of pica. Would recommend giving IV Venofer x2 doses while she is in the hospital -We will await cytogenetics and NGS molecular panel on bone marrow biopsy. 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 Given significant thrombocytopenia, she would benefit from hypomethylating agent such as decitabine or azacitidine. She would also benefit from erythropoietin stimulating agent given severe anemia. -Given her decline in performance status over the last 1 to 2 months also discussed overall goals of care. Following a discussion, patient indicated that she was considering a supportive care approach. As such, I believe she would benefit from palliative care evaluation to discuss goals of care. Thank you for this consult. Hematology continue following patient while in the hospital. Please feel free to call if you have any further questions History of Present Illness Reason for Consultation: Anemia and thrombocytopenia Attending Physician: Shan Fan History of Present Illness Ms. Cox is a pleasant 81-year-old with medical history of right breast cancer for which she is s/p mastectomy, adjuvant chemotherapy treatment in 09/1994, diffuse large B-cell lymphoma for which she is s/p 3 cycles of R-CHOP completed in May, followed by radiation treatment which was completed in August,. She also has a history of chronic anemia of multifactorial etiology for which she has required IV iron and PRBC transfusions in the past. She was recently discharged from [facility] after being admitted for shortness of breath, palpitations. At that time, she was found to be severely anemic and thrombocytopenic with hemoglobin of 7.5 platelet count of 25,000. Hematology was consulted and she was evaluated by Dr. Nuno who recommended treatment for ITP given elevated immature platelet count. She received IVIG and high-dose dexamethasone with no improvement in platelet count. Patient subsequently underwent IR guided bone marrow biopsy on on 08/22/2022 while inpatient. Bone marrow biopsy revealed mildly hypercellular marrow for age 44% cellularity with mildly left shifted myeloid maturation, mild dyserythropoiesis and megakaryocytic hyperplasia with mild atypia suggestive of MDS. Cytogenetics and NGS panel are still pending Patient was readmitted to [facility] yesterday with worsening fatigue and shortness of breath. Labs revealed hgb of 6.0 and platelet count of 21,000.She received 2 units of PRBC transfusion.She complains of generalized weakness, easy bruising, poor appetite and pica symptoms Allergies Allergy/AdvReac Type Severity Reaction Status Date / Time dexamethasone Allergy Severe Shortness Verified 08/31/22 11:41 of Breath, throat constriction Sulfa (Sulfonamide Allergy Severe HIVES Verified 08/31/22 11:41 Antibiotics) adhesive tape Allergy Intermediate redness, Verified 08/31/22 11:41 irritation, peels skin off amoxicillin Allergy Unknown hives Verified 08/31/22 11:41 azithromycin Allergy Unknown Hives Verified 08/31/22 11:41 [From Zithromax Z-Siddhartha] clavulanic acid Allergy Unknown hives Verified 08/31/22 11:41 meperidine Allergy Unknown HIVES Verified 08/31/22 11:41 Penicillins Allergy Unknown hives Verified 08/31/22 11:41 cephalexin [From Keflex] Allergy Verified 08/31/22 11:41 ciprofloxacin [From Cipro] AdvReac Severe Vomiting Verified 08/31/22 11:41 codeine AdvReac Unknown NAUSEA AND Verified 08/31/22 11:41 VOMITING ketorolac AdvReac Unknown 'increased Verified 08/31/22 11:41 bleeding' Home Medications Medication Instructions Recorded Confirmed Type acetaminophen 500 mg tablet 500 mg PO HS 06/03/19 08/31/22 History (Tylenol Extra Strength) cholecalciferol (vitamin D3) 25 1,000 units PO QAM 07/31/19 08/31/22 History mcg (1,000 unit) tablet cinnamon bark 500 mg capsule 1,000 mg PO QAM 07/31/19 08/31/22 History cyanocobalamin (vitamin B-12) 1,000 mcg PO HS 07/31/19 08/31/22 History 1,000 mcg capsule budesonide 0.5 mg/2 mL suspension 0.5 mg inhalation BID PRN 03/24/21 08/31/22 History for nebulization Shortness Of Breath Or Wheezing tiotropium 2.5 mcg-olodaterol 2.5 2 puff inhalation QAM 03/24/21 08/31/22 History mcg/actuation mist for inhalation (Stiolto Respimat) Oxygen Home #1 ea 05/11/21 08/31/22 Rx albuterol sulfate 90 mcg/actuation 2 puff inhalation Q6 PRN shortness 10/06/21 08/31/22 History aerosol inhaler (Ventolin HFA) of breath or wheezing mirabegron 50 mg tablet,extended 50 mg PO HS #90 tabs 12/29/21 08/31/22 Rx release 24 hr (Myrbetriq) potassium chloride 10 mEq 20 meq PO QAM 12/31/21 08/31/22 History tablet,extended release(part/cryst) loperamide 2 mg capsule 2 mg PO Q4H PRN diarrhea #30 caps 04/15/22 08/31/22 Rx furosemide 40 mg tablet 40 mg PO BID #60 tabs 06/09/22 08/31/22 Rx elevated toilet seat frame #1 ea 08/03/22 08/31/22 Rx benzocaine 20 % oral mucosal 1 ea mucous membrane UD PRN mouth 08/24/22 08/31/22 History liquid (Anbesol (benzocaine) sores Maximum Strength) metoprolol tartrate 25 mg tablet 25 mg PO AMHS 08/24/22 08/31/22 History benzonatate 100 mg capsule 100 mg PO TID 08/31/22 08/31/22 History calcium carbonate 600 mg-vitamin 1 tab PO QAM 08/31/22 08/31/22 History D3 5 mcg (200 unit) tablet camphor 3.1 %-methyl salicylate 10 1 patch topical DAILY 08/31/22 08/31/22 History %-menthol 6 % topical patch (Salonpas) ipratropium 0.5 mg-albuterol 3 mg 3 ml inhalation Q4H PRN Shortness 08/31/22 08/31/22 History (2.5 mg base)/3 mL nebulization Of Breath Or Wheezing soln mometasone 50 mcg/actuation nasal 2 spray intranasal DAILY 08/31/22 08/31/22 History spray omega-3 fatty acids 1,000 mg 1,000 mg PO QAM 08/31/22 08/31/22 History capsule ondansetron 4 mg disintegrating 4 mg translingual Q8 PRN Nausea 08/31/22 08/31/22 History tablet pantoprazole 40 mg tablet,delayed 40 mg PO AMHS 08/31/22 08/31/22 History release Patient History Medical History Acid reflux disease Anemia Anticoagulant long-term use Biceps muscle tear Chest pain syndrome Chronic otitis media of left ear with effusion Chronic pain of left upper extremity SHOULDER Chronic respiratory failure with hypoxia Degenerative disc disease Dyspnea on exertion Esophageal dysmotility ETD (eustachian tube dysfunction) Folic acid deficiency Hemarthrosis, left knee History of breast cancer right breast cancer -- CHEMO. sx. History of stroke 2014. Small chronic lacunar infarct noted on 03/[address] no residual. Hypertension Hypokalemia Lumbar stenosis with neurogenic claudication Nephrolithiasis HX OF Nocturnal hypoxia Non-Hodgkin lymphoma 2017 - CHEMO AND RADIATION On home O2 3 LPM cont Osteoarthritis Pancytopenia Paroxysmal atrial fibrillation hx mult cardioversions; on eliquis; follows with Dr. Sullivan Peripheral neuropathy Pneumonia Port-A-Cath in place HAS IT FLUSHED EVERY 6 WEEKS Rosacea Scoliosis Spinal stenosis Stage 3 chronic kidney disease Stress incontinence Thrombocytopenia Thyroid nodule Vitamin D deficiency Surgical History H/O colonoscopy H/O dilation and curettage multiple H/O: hysterectomy EVELIA History of appendectomy History of back surgery lumbar fusion History of bladder surgery bladder tack History of bronchoscopy History of cardioversion History of esophagogastroduodenoscopy (EGD) History of lobectomy of lung Left upper lobe r/t nodule (granuloma) History of mastectomy right with lymph node removal History of tonsillectomy S/P cervical spinal fusion x2 () unsure of levels. ROM WNL S/P cholecystectomy S/P thyroid biopsy negative Status post arthroscopy of left knee Family History Mother Coronary heart disease Cancer Atrial fibrillation Heart disease Hypertension Father Coronary heart disease Myocardial infarction Cancer Heart disease Hypertension Aunt Cancer Brother Prostate cancer Son Bladder cancer Other No family history of adverse response to anesthesia No family history of bleeding disorder Stroke Denies family history of Ovarian cancer Hearing loss Kidney disease Breast cancer Colorectal cancer Asthma Social History Smoking Status: Never smoker Second Hand Exposure: Yes (Spouse smoked); Hx Alcohol Use: No Hx Substance Use: No Preferred Language: Divehi Communication Ability: Effective Visual Impairment: Partially Limited Hearing Ability: Normal 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 Beliefs That Will Affect Care: None marital status: / Current Living Situation: Alone current occupational status: retired How many Children do You have: 1 Feels Safe at Home: Yes and No Is there a partner from a previous relationship who is making you feel unsafe now?: No Any Concerns about Your Family Situation: No Would You Like to Speak to Someone About Your Situation: No Safety Concerns: Feels Safe At This Time Childhood Exposure to Second-Hand Smoke: No caffeine: No (daria mariana, pepsi) Dental Care, Regularly: No Physical Activity Frequency: Daily Physical Activity Frequency Comment: Does exercises that PT taught her. Seatbelt Use: always Sunscreen Use: No Do you think of yourself as: straight/heterosexual Gender Identity: Female Assistive Devices: Denture - Lower, Glasses, Oxygen - Continuous and Walker Review of Systems Review of Systems: All systems reviewed & are unremarkable except as noted in HPI & below Physical Exam Constitutional: WD/WN, vitals as above + ill appearing Eyes: PERRL, conjunctivae normal, anicteric sclerae ENMT: external ear and nose normal, oropharynx normal Respiratory: normal respiratory effort, lungs clear to auscultation Cardiovascular: Rate/Rhythm: + irregularly irregular Gastrointestinal (Abdomen): normal bowel sounds, soft, nontender, no hepatosplenomegaly Results & Data ([facility]) Vital Signs (Past 12 Hours) Vital Signs Temp Pulse Pulse Resp BP BP Pulse Ox 09/01/22 07:44 37.5 C 99 H 18 111/65 91 09/01/22 06:02 88 09/01/22 01:44 37.0 C 77 18 138/75 94 09/01/22 00:50 36.9 C 72 16 122/70 95 08/31/22 23:50 36.9 C 79 18 132/76 96 08/31/22 23:20 36.8 C 89 16 136/65 95 09/01/22 00:12 72 09/01/22 00:12 08/31/22 23:05 36.9 C 85 18 106/56 L 93 08/31/22 22:50 37.0 C 87 18 115/73 94 O2 Del Method O2 Flow Rate 09/01/22 07:44 Room Air 09/01/22 06:02 09/01/22 01:44 09/01/22 00:50 Room Air 08/31/22 23:50 Nasal Cannula 3 08/31/22 23:20 Nasal Cannula 3 09/01/22 00:12 09/01/22 00:12 Nasal Cannula 3 08/31/22 23:05 08/31/22 22:50 0 (3) Anemia Anemia type: unspecified type Qualified Code(s): D64.9 - Anemia, unspecified
--- NOTE | 2022-09-01 13:55 | Gastrointestinal Consultation ---
Date of Consultation September 01, 2022 Supervising Physician Co-Signing Physician Notes Acute on chronic anemia that at the current time seems to be explained be her recent diagnosis of mds. Given her low platelets and also low hgb with overt bleeding- would transfuse and follow hematology recs. Recent egd/colon done by Dr. Allen within the last two years showed hh and polyps. No further plans for repeat scopes at this time. History of Present Illness Reason for Consultation: acute on chronic anemia Requesting Physician: Shan Fan Attending Physician: Shan Fan History of Present Illness 81 yo fm with a history of breast cancer, lymphoma, admitted for acute on chronic anemia. Seen recently by GI at [place] for anemia and no scopes were done. Prior to that seen by [facility] (Altagracia and Dr. Allen) for anemia that at that time when they were seeing her hgb was near what it is on this admission. Egd/colon at that time showed hiatal hernia and polyps. She endorses no overt bleeding- no hematemesis, no hematochezia, slighty weakness and fatigue, but no abd pain. She reports she's been seen by hematology and they have told her that recent bone marrow biopsy showed possible mds and that could be the explanation for her anemia and thrombocytopenia. Recent imaging has showed a normal appearing liver and spleen. She has no other acute complaints today. Allergies Allergy/AdvReac Type Severity Reaction Status Date / Time dexamethasone Allergy Severe Shortness Verified 08/31/22 11:41 of Breath, throat constriction Sulfa (Sulfonamide Allergy Severe HIVES Verified 08/31/22 11:41 Antibiotics) adhesive tape Allergy Intermediate redness, Verified 08/31/22 11:41 irritation, peels skin off amoxicillin Allergy Unknown hives Verified 08/31/22 11:41 azithromycin Allergy Unknown Hives Verified 08/31/22 11:41 [From Zithromax Z-Siddhartha] clavulanic acid Allergy Unknown hives Verified 08/31/22 11:41 meperidine Allergy Unknown HIVES Verified 08/31/22 11:41 Penicillins Allergy Unknown hives Verified 08/31/22 11:41 cephalexin [From Keflex] Allergy Verified 08/31/22 11:41 ciprofloxacin [From Cipro] AdvReac Severe Vomiting Verified 08/31/22 11:41 codeine AdvReac Unknown NAUSEA AND Verified 08/31/22 11:41 VOMITING ketorolac AdvReac Unknown 'increased Verified 08/31/22 11:41 bleeding' Home Medications Medication Instructions Recorded Confirmed Type acetaminophen 500 mg tablet 500 mg PO HS 06/03/19 08/31/22 History (Tylenol Extra Strength) cholecalciferol (vitamin D3) 25 1,000 units PO QAM 07/31/19 08/31/22 History mcg (1,000 unit) tablet cinnamon bark 500 mg capsule 1,000 mg PO QAM 07/31/19 08/31/22 History cyanocobalamin (vitamin B-12) 1,000 mcg PO HS 07/31/19 08/31/22 History 1,000 mcg capsule budesonide 0.5 mg/2 mL suspension 0.5 mg inhalation BID PRN 03/24/21 08/31/22 History for nebulization Shortness Of Breath Or Wheezing tiotropium 2.5 mcg-olodaterol 2.5 2 puff inhalation QAM 03/24/21 08/31/22 History mcg/actuation mist for inhalation (Stiolto Respimat) Oxygen Home #1 ea 05/11/21 08/31/22 Rx albuterol sulfate 90 mcg/actuation 2 puff inhalation Q6 PRN shortness 10/06/21 08/31/22 History aerosol inhaler (Ventolin HFA) of breath or wheezing mirabegron 50 mg tablet,extended 50 mg PO HS #90 tabs 12/29/21 08/31/22 Rx release 24 hr (Myrbetriq) potassium chloride 10 mEq 20 meq PO QAM 12/31/21 08/31/22 History tablet,extended release(part/cryst) loperamide 2 mg capsule 2 mg PO Q4H PRN diarrhea #30 caps 04/15/22 08/31/22 Rx furosemide 40 mg tablet 40 mg PO BID #60 tabs 06/09/22 08/31/22 Rx elevated toilet seat frame #1 ea 08/03/22 08/31/22 Rx benzocaine 20 % oral mucosal 1 ea mucous membrane UD PRN mouth 08/24/22 08/31/22 History liquid (Anbesol (benzocaine) sores Maximum Strength) metoprolol tartrate 25 mg tablet 25 mg PO AMHS 08/24/22 08/31/22 History benzonatate 100 mg capsule 100 mg PO TID 08/31/22 08/31/22 History calcium carbonate 600 mg-vitamin 1 tab PO QAM 08/31/22 08/31/22 History D3 5 mcg (200 unit) tablet camphor 3.1 %-methyl salicylate 10 1 patch topical DAILY 08/31/22 08/31/22 History %-menthol 6 % topical patch (Salonpas) ipratropium 0.5 mg-albuterol 3 mg 3 ml inhalation Q4H PRN Shortness 08/31/22 08/31/22 History (2.5 mg base)/3 mL nebulization Of Breath Or Wheezing soln mometasone 50 mcg/actuation nasal 2 spray intranasal DAILY 08/31/22 08/31/22 History spray omega-3 fatty acids 1,000 mg 1,000 mg PO QAM 08/31/22 08/31/22 History capsule ondansetron 4 mg disintegrating 4 mg translingual Q8 PRN Nausea 08/31/22 08/31/22 History tablet pantoprazole 40 mg tablet,delayed 40 mg PO AMHS 08/31/22 08/31/22 History release Patient History Medical History Acid reflux disease Anemia Anticoagulant long-term use Biceps muscle tear Chest pain syndrome Chronic otitis media of left ear with effusion Chronic pain of left upper extremity SHOULDER Chronic respiratory failure with hypoxia Degenerative disc disease Dyspnea on exertion Esophageal dysmotility ETD (eustachian tube dysfunction) Folic acid deficiency Hemarthrosis, left knee History of breast cancer right breast cancer -- CHEMO. sx. History of stroke 2014. Small chronic lacunar infarct noted on 03/[address] no residual. Hypertension Hypokalemia Lumbar stenosis with neurogenic claudication Nephrolithiasis HX OF Nocturnal hypoxia Non-Hodgkin lymphoma 2017 - CHEMO AND RADIATION On home O2 3 LPM cont Osteoarthritis Pancytopenia Paroxysmal atrial fibrillation hx mult cardioversions; on eliquis; follows with Dr. Sullivan Peripheral neuropathy Pneumonia Port-A-Cath in place HAS IT FLUSHED EVERY 6 WEEKS Rosacea Scoliosis Spinal stenosis Stage 3 chronic kidney disease Stress incontinence Thrombocytopenia Thyroid nodule Vitamin D deficiency Surgical History H/O colonoscopy H/O dilation and curettage multiple H/O: hysterectomy EVELIA History of appendectomy History of back surgery lumbar fusion History of bladder surgery bladder tack History of bronchoscopy History of cardioversion History of esophagogastroduodenoscopy (EGD) History of lobectomy of lung Left upper lobe r/t nodule (granuloma) History of mastectomy right with lymph node removal History of tonsillectomy S/P cervical spinal fusion x2 () unsure of levels. ROM WNL S/P cholecystectomy S/P thyroid biopsy negative Status post arthroscopy of left knee Family History Mother Coronary heart disease Cancer Atrial fibrillation Heart disease Hypertension Father Coronary heart disease Myocardial infarction Cancer Heart disease Hypertension Aunt Cancer Brother Prostate cancer Son Bladder cancer Other No family history of adverse response to anesthesia No family history of bleeding disorder Stroke Denies family history of Ovarian cancer Hearing loss Kidney disease Breast cancer Colorectal cancer Asthma Social History Smoking Status: Never smoker Second Hand Exposure: Yes (Spouse smoked); Hx Alcohol Use: No Hx Substance Use: No Preferred Language: Sami Communication Ability: Effective Visual Impairment: Partially Limited Hearing Ability: Normal [place] Required: No Beliefs That Will Affect Care: None marital status: / Current Living Situation: Alone current occupational status: retired How many Children do You have: 1 Feels Safe at Home: Yes and No Is there a partner from a previous relationship who is making you feel unsafe now?: No Any Concerns about Your Family Situation: No Would You Like to Speak to Someone About Your Situation: No Safety Concerns: Feels Safe At This Time Childhood Exposure to Second-Hand Smoke: No caffeine: No (daria mariana, pepsi) Dental Care, Regularly: No Physical Activity Frequency: Daily Physical Activity Frequency Comment: Does exercises that PT taught her. Seatbelt Use: always Sunscreen Use: No Do you think of yourself as: straight/heterosexual Gender Identity: Female Assistive Devices: Oxygen - Continuous and Walker Review of Systems Review of Systems: All systems reviewed & are unremarkable except as noted in HPI & below Physical Exam Physical Exam: Elderly appearing female in nad, slightly pale Respiratory: Normal respirations Gastrointestinal (Abdomen): Soft Results & Data ([facility]) Vital Signs (Past 12 Hours) Vital Signs Temp Pulse Pulse Pulse Resp BP Pulse Ox 09/01/22 11:27 36.7 C 88 18 119/63 92 09/01/22 08:00 84 09/01/22 07:44 37.5 C 99 H 18 111/65 91 09/01/22 06:02 88 O2 Del Method 09/01/22 11:27 Room Air 09/01/22 08:00 09/01/22 07:44 Room Air 09/01/22 06:02 Laboratory Results hgb 6 range, platelets less than 20, hgb improving bun is normal Diagnostic Findings last egd/colon by case reviewed last clinic note done by altagracia ulrich reviewed prior hgb's reviewed CT Scan reviewed [facility] gi note reviewed from 08/23
[2022-09-01] MEDS: ONDANSETRON INJ 2 MG/ML 2 ML VIAL IV PRN ×2 (14:35→23:01)
--- NOTE | 2022-09-01 18:15 | Hospitalist Progress Note ---
Date of Service September 01, 2022 Assessment & Plan (1) MDS (myelodysplastic syndrome): Plan: s/p BMB at [facility] poor performance/functional status - may not do well on Rx Appreciate Dr Luis's consultation Tx PRBCs and platelets as needed platelet threshold <15 recent B12/folate/TSH wnl serum copper level sent and pending cbc in am (2) Pancytopenia: Plan: 2nd to MDS could be a component of nutritional def as well but b12/folate both wnl TSH wnl copper level dispatched repeat CBC am (3) Acute on chronic anemia: Plan: may have mild component from recent GI bleeding but most of anemia is 2nd to #1 s/p 2 units PRBCs overnight - tolerated such will give venofer 200mg x 1 today, then 300mg x 1 tomorrow if she tolerates such GI has consulted - no scopes at this time cont PPI CBC am (4) Thrombocytopenia: Plan: Noted platelet count of 110 in March 2022 and 92 in Jul 2022 Acute drop to 25,000 in Aug 2022, underwent BM biopsy at [facility] - concerning for MDS was treated for ITP at [facility] without any change in status (IVIG, etc) platelet transfusion level <[id number] Luis consultation (5) Atrial fibrillation, permanent: Plan: cont BB eliquis d/c due to #4 (6) Diarrhea: Plan: Chronic Continue Imodium PRN Could trial her on pancrease or colestipol if needed if it worsens - stool biofire (7) Chronic respiratory failure with hypoxia: Plan: Chronic/stable Continue 3L of O2 via [place] Stiolto Respimat & Duonebs (8) Stage 3 chronic kidney disease: Plan: stable BMP am (9) CHF (congestive heart failure): Plan: compensated (10) Chronic obstructive pulmonary disease: Plan: with o2 dependency (11) Paroxysmal atrial fibrillation: Plan: NSR since admission (12) History of stroke: (13) History of breast cancer: (14) Weakness: Plan: 2nd to new onset MDS (15) Non-Hodgkin lymphoma: Plan: history of Plan PT, OT evals left message for son on his voicemail plan formal palliative care consult on Saturday am restless legs - likely due to Fe def - start mirapex 0.25mg HS care d/w Dr Luis Admission and Anticipated Discharge Date Admission Date: August 31, 2022 Subjective patient feels "exhausted" started mid-August and has been persistent since then continues with bothersome cough denies dyspnea at rest has chronic diarrhea "for years" feels a little depressed wants to discuss palliative care with our palliative care team tele overnight wnl Review of Systems Review of Systems: gen - no fever cv - no cp pulm - minimal sputum GI - no abd pain neuro - restless legs, sleeping poorly at night due to such Physical Exam Physical Exam: gen - looks unwell but NAD, pleasant mouth - MMM neck - no JVD heart - irregularly irregular, s1 s2 lungs - CTA b/l abd - soft NT ND BS+ ext - pulses 2+ b/l skin - bruises on arms Results & Data Results & Data ([facility]) Vital Signs (Past 12 Hours) Vital Signs Temp Pulse Pulse Pulse Resp BP Pulse Ox 09/01/22 14:15 75 09/01/22 15:53 36.8 C 88 20 121/71 100 09/01/22 11:27 36.7 C 88 18 119/63 92 09/01/22 08:00 84 09/01/22 07:44 37.5 C 99 H 18 111/65 91 O2 Del Method O2 Flow Rate 09/01/22 14:15 09/01/22 15:53 Nasal Cannula 3 09/01/22 11:27 Room Air 09/01/22 08:00 09/01/22 07:44 Room Air Laboratory Results Laboratory Results - last 48 hr 08/31/22 08/31/22 08/31/22 14:05 14:05 14:05 WBC RBC Hgb Hct MCV MCH MCHC RDW Std Deviation RDW Coeff of Zackary Plt Count Immature Gran % (Auto) Neut % (Auto) Lymph % (Auto) [place] % (Auto) Eos % (Auto) Baso % (Auto) Reticulocyte % (Auto) Neut # (Auto) Lymph # (Auto) [place] # (Auto) Eos # (Auto) Baso # (Auto) Reticulocyte # Immature Gran # (Auto) Toxic Granulation Platelet Estimate PT 11.5 INR 1.1 APTT 22.2 PTT Ratio 0.8 Sodium 134 L Potassium 4.1 Chloride 99 Carbon Dioxide 28 Anion Gap 7 BUN 32 H Creatinine 1.48 H Est Cr Clr Drug Dosing Not Reportable Est GFR ( Amer) 37.8 Est GFR (Non-Af Amer) 32.6 BUN/Creatinine Ratio 21.6 H Glucose 137 H Calcium 8.8 Magnesium 1.7 Iron 110 Ferritin Total Bilirubin 1.4 H AST 18 ALT 10 Alkaline Phosphatase 86 Lactate Dehydrogenase Troponin I High Sens 37.2 H Total Protein 6.4 Albumin 3.5 Globulin 2.9 Albumin/Globulin Ratio 1.2 Vitamin B12 Folate TSH Free T4 Urine Color Urine Appearance Urine pH Ur Specific [place] Urine Protein Urine Glucose (UA) Urine Ketones Urine Blood Urine Nitrite Urine Bilirubin Urine Urobilinogen Ur Leukocyte Esterase SARS-CoV-2 (PCR) Influenza Type A (PCR) Influenza Type B (PCR) RSV (RT-PCR) Blood Type O Positive Antibody Screen NEGATIVE Crossmatch See Detail 08/31/22 08/31/22 08/31/22 14:05 14:05 14:05 WBC 5.16 RBC 1.70 L Hgb 6.0 L* Hct 17.9 L* MCV 105.3 H MCH 35.3 H MCHC 33.5 RDW Std Deviation 69.2 H RDW Coeff of Zackary 19.0 H Plt Count 21 L* Immature Gran % (Auto) 4.7 Neut % (Auto) 40.0 Lymph % (Auto) 25.4 [place] % (Auto) 29.5 Eos % (Auto) 0.0 Baso % (Auto) 0.4 Reticulocyte % (Auto) 3.1 H Neut # (Auto) 2.07 Lymph # (Auto) 1.31 [place] # (Auto) 1.52 H Eos # (Auto) 0.00 Baso # (Auto) 0.02 Reticulocyte # 0.05 Immature Gran # (Auto) 0.24 H Toxic Granulation Platelet Estimate Signific. Decreased L PT INR APTT PTT Ratio Sodium Potassium Chloride Carbon Dioxide Anion Gap BUN Creatinine Est Cr Clr Drug Dosing Est GFR ( Amer) Est GFR (Non-Af Amer) BUN/Creatinine Ratio Glucose Calcium Magnesium Iron Ferritin Total Bilirubin AST ALT Alkaline Phosphatase Lactate Dehydrogenase Troponin I High Sens Total Protein Albumin Globulin Albumin/Globulin Ratio Vitamin B12 Folate TSH 0.275 L Free T4 1.09 Urine Color Urine Appearance Urine pH Ur Specific [place] Urine Protein Urine Glucose (UA) Urine Ketones Urine Blood Urine Nitrite Urine Bilirubin Urine Urobilinogen Ur Leukocyte Esterase SARS-CoV-2 (PCR) Influenza Type A (PCR) Influenza Type B (PCR) RSV (RT-PCR) Blood Type Antibody Screen Crossmatch 08/31/22 08/31/22 08/31/22 14:05 14:05 14:14 WBC RBC Hgb Hct MCV MCH MCHC RDW Std Deviation RDW Coeff of Zackary Plt Count Immature Gran % (Auto) Neut % (Auto) Lymph % (Auto) [place] % (Auto) Eos % (Auto) Baso % (Auto) Reticulocyte % (Auto) Neut # (Auto) Lymph # (Auto) [place] # (Auto) Eos # (Auto) Baso # (Auto) Reticulocyte # Immature Gran # (Auto) Toxic Granulation Platelet Estimate PT INR APTT PTT Ratio Sodium Potassium Chloride Carbon Dioxide Anion Gap BUN Creatinine Est Cr Clr Drug Dosing Est GFR ( Amer) Est GFR (Non-Af Amer) BUN/Creatinine Ratio Glucose Calcium Magnesium Iron Ferritin Total Bilirubin AST ALT Alkaline Phosphatase Lactate Dehydrogenase 174 Troponin I High Sens Total Protein Albumin Globulin Albumin/Globulin Ratio Vitamin B12 > 1500 H Folate TSH Free T4 Urine Color Urine Appearance Urine pH Ur Specific [place] Urine Protein Urine Glucose (UA) Urine Ketones Urine Blood Urine Nitrite Urine Bilirubin Urine Urobilinogen Ur Leukocyte Esterase SARS-CoV-2 (PCR) NEGATIVE Influenza Type A (PCR) Negative Influenza Type B (PCR) Negative RSV (RT-PCR) Negative Blood Type Antibody Screen Crossmatch 09/01/22 09/01/22 09/01/22 02:19 02:19 03:59 WBC 4.26 L RBC 2.20 L Hgb 7.6 L Hct 22.1 L MCV 100.5 H MCH 34.5 H MCHC 34.4 RDW Std Deviation 61.1 H RDW Coeff of Zackary 18.5 H Plt Count 18 L* Immature Gran % (Auto) 5.2 Neut % (Auto) 35.7 Lymph % (Auto) 36.6 [place] % (Auto) 21.8 Eos % (Auto) 0.2 Baso % (Auto) 0.5 Reticulocyte % (Auto) Neut # (Auto) 1.52 Lymph # (Auto) 1.56 [place] # (Auto) 0.93 H Eos # (Auto) 0.01 Baso # (Auto) 0.02 Reticulocyte # Immature Gran # (Auto) 0.22 H Toxic Granulation 1+ Platelet Estimate PT INR APTT PTT Ratio Sodium 134 L Potassium 4.0 Chloride 102 Carbon Dioxide 26 Anion Gap 6 BUN 32 H Creatinine 1.39 H Est Cr Clr Drug Dosing 36.5 Est GFR ( Amer) 40.8 Est GFR (Non-Af Amer) 35.2 BUN/Creatinine Ratio 23.0 H Glucose 120 H Calcium 8.4 L Magnesium 1.7 Iron Ferritin Total Bilirubin AST ALT Alkaline Phosphatase Lactate Dehydrogenase Troponin I High Sens Total Protein Albumin Globulin Albumin/Globulin Ratio Vitamin B12 Folate TSH Free T4 Urine Color Dark Yellow Urine Appearance Clear Urine pH 5.0 Ur Specific [place] 1.022 Urine Protein Negative Urine Glucose (UA) Negative Urine Ketones Negative Urine Blood Negative Urine Nitrite Negative Urine Bilirubin Negative Urine Urobilinogen Negative Ur Leukocyte Esterase Negative SARS-CoV-2 (PCR) Influenza Type A (PCR) Influenza Type B (PCR) RSV (RT-PCR) Blood Type Antibody Screen Crossmatch 09/01/22 09/01/22 09/01/22 05:26 10:40 10:40 WBC 4.41 L RBC 2.15 L Hgb 7.5 L Hct 21.5 L MCV 100.0 MCH 34.9 H MCHC 34.9 RDW Std Deviation 60.7 H RDW Coeff of Zackary 18.4 H Plt Count 18 L* Immature Gran % (Auto) 6.1 Neut % (Auto) 38.9 Lymph % (Auto) 33.1 [place] % (Auto) 21.5 Eos % (Auto) 0.2 Baso % (Auto) 0.2 Reticulocyte % (Auto) Neut # (Auto) 1.71 Lymph # (Auto) 1.46 [place] # (Auto) 0.95 H Eos # (Auto) 0.01 Baso # (Auto) 0.01 Reticulocyte # Immature Gran # (Auto) 0.27 H Toxic Granulation 1+ Platelet Estimate PT INR APTT PTT Ratio Sodium Potassium Chloride Carbon Dioxide Anion Gap BUN Creatinine Est Cr Clr Drug Dosing Est GFR ( Amer) Est GFR (Non-Af Amer) BUN/Creatinine Ratio Glucose Calcium Magnesium Iron Ferritin 423.2 H Total Bilirubin AST ALT Alkaline Phosphatase Lactate Dehydrogenase Troponin I High Sens Total Protein Albumin Globulin Albumin/Globulin Ratio Vitamin B12 Folate 9.55 TSH Free T4 Urine Color Urine Appearance Urine pH Ur Specific [place] Urine Protein Urine Glucose (UA) Urine Ketones Urine Blood Urine Nitrite Urine Bilirubin Urine Urobilinogen Ur Leukocyte Esterase SARS-CoV-2 (PCR) Influenza Type A (PCR) Influenza Type B (PCR) RSV (RT-PCR) Blood Type Antibody Screen Crossmatch PG Care Time/CCT Total # of Minutes Spent Total Time Spent with Patient: Total time spent is greater than 50% in coordination of care (as documented) at patient's floor/unit and/or counseling patient: Coding Level of Care Code 56616 SUB INP/OBS CARE 50MIN Diagnoses MDS (myelodysplastic syndrome) D46.9 Pancytopenia D61.818 Acute on chronic anemia D64.9 Thrombocytopenia D69.6 Atrial fibrillation, permanent I48.21 Diarrhea R19.7 Diarrhea type: unspecified type Chronic respiratory failure with hypoxia J96.11 Stage 3 chronic kidney disease N18.3 CHF (congestive heart failure) I50.9 Heart failure chronicity: acute Heart failure type: unspecified Chronic obstructive pulmonary disease J44.9 Paroxysmal atrial fibrillation I48.0 History of stroke Z86.73 History of breast cancer Z85.3 Weakness R53.1 Non-Hodgkin lymphoma C85.90 (6) Diarrhea Diarrhea type: unspecified type Qualified Code(s): R19.7 - Diarrhea, unspecified (9) CHF (congestive heart failure) Heart failure chronicity: acute Heart failure type: unspecified Qualified Code(s): I50.9 - Heart failure, unspecified
[2022-09-01] MEDS ORDERED: IRON SUCROSE 200 MG in 0.9 % SODIUM CHLORIDE 100 ML IV ONE (19:00)
[2022-09-01] MEDS: BENZONATATE 100 MG CAPSULE PO SCH (20:07)
[2022-09-01] MEDS: FIRST - Mouthwash BLM 119 ML PO SCH (20:18)
[2022-09-01] MEDS: PRAMIPEXOLE DIHYDROCHLO 0.25 MG TAB PO SCH (20:18)
[2022-09-01] MEDS ORDERED: guaiFENesin SUGAR FREE 100 MG/5 ML UDC PO STA (20:21)
[2022-09-02] MEDS: FIRST - Mouthwash BLM 119 ML PO SCH ×4 (08:21→22:25)
[2022-09-02] MEDS: BENZONATATE 100 MG CAPSULE PO SCH ×3 (08:21→22:27)
[2022-09-02] MEDS: METOPROLOL TARTRATE 25 MG TAB PO SCH ×2 (08:21→22:27)
[2022-09-02] MEDS: PANTOprazole 40 MG in SYRINGE 0 ML IV SCH ×2 (08:21→22:25)
[2022-09-02] MEDS: ONDANSETRON INJ 2 MG/ML 2 ML VIAL IV PRN ×2 (08:24→16:20)
[2022-09-02] MEDS ORDERED: MICONAZOLE NITRATE POWDER 85 GM EXT PRN (09:29)
[2022-09-02 09:43] LABS: Creatinine Clr Calc Pharmacy 39.5 ml/min; Est GFR (African American) 49.2 ml/min; Est GFR (Non-African American) 42.5 ml/min; Potassium 4.3 mmol/L (3.5-5.1)
[2022-09-02 09:49] LABS: Hematocrit (blood only) 22.3 % (37.0-47.0); Hemoglobin 7.5 g/dl (12.0-16.0); Mean Corpuscular Hemoglobin 34.9 pg (25.0-34.0); Mean Corpuscular Hgb Conc 33.6 g/dL (32.0-36.0); Mean Corpuscular Volume 103.7 fL (80.0-100.0); Platelet Count 17 K/uL (130-400); RDW Coefficient of Variation 18.5 % (11.5-14.5); RDW Standard Deviation 65.9 fL (36.4-46.3); Red Blood Count 2.15 M/uL (4.20-5.40); White Blood Count 4.28 K/ul (4.8-10.8)
[2022-09-02] MEDS ORDERED: IRON SUCROSE 300 MG in SODIUM CHLORIDE 0.9% 250 ML IV ONE (10:00)
[2022-09-02] MEDS: guaiFENesin 600 MG TABCR PO SCH ×2 (10:07→22:27)
[2022-09-02 10:25] LABS: Anisocytosis Present; Basophils # (auto) 0.02 K/uL (0-0.2); Basophils % (auto) 0.5 %; Eosinophils # (auto) 0.01 K/uL (0-0.50); Eosinophils % (auto) 0.2 %; Immature Granulocytes # (auto) 0.28 K/uL (0.01-0.20); Immature Granulocytes % (auto) 6.5 %; Lymphocytes # (auto) 1.05 K/uL (1.2-3.4); Lymphocytes % (auto) 24.5 %; Monocytes # (auto) 0.97 K/uL (0.11-0.59); Monocytes % (auto) 22.7 %; Neutrophils # (auto) 1.95 K/uL (1.40-6.50); Neutrophils % (auto) 45.6 %
[2022-09-02] MEDS ORDERED: METOCLOPRAMIDE HCL INJ 5 MG/ML 2 ML VIAL IV ONE (11:44)
--- NOTE | 2022-09-02 12:44 | Communication Note ---
Date of Service: September 02, 2022 hgb remains stable post tranfusion. as per full consult note yesterday - anemia like from underlying hematological condition in addition to thrombocytopenia. would follow hematology recs.
--- NOTE | 2022-09-02 15:56 | Hospitalist Progress Note ---
Date of Service September 02, 2022 Assessment & Plan (1) MDS (myelodysplastic syndrome): Plan: s/p BMB at [facility] poor performance/functional status - may not do well on chemo agents Appreciate Dr Luis's consultation Tx PRBCs and platelets as needed platelet threshold <15 Hb threshold <7 recent B12/folate/TSH wnl serum copper level sent and pending cbc in am of note - patient very interested in having formal palliative care consultation she is leaning towards not treating her MDS but just having transfusional support she had a lot of questions about hospice today family given handouts from [facility] website about MDS (2) Pancytopenia: Plan: 2nd to MDS could be a component of nutritional def as well but b12/folate both wnl TSH wnl copper level dispatched repeat CBC am (3) Acute on chronic anemia: Plan: may have mild component from recent GI bleeding but most of anemia is 2nd to #1 s/p 2 units PRBCs this admission - tolerated such gave venofer 200mg x 1 3/4 give venofer 300mg x 1 today GI has consulted - no scopes at this time cont PPI CBC am (4) Thrombocytopenia: Plan: Noted platelet count of 110 in March 2022 and 92 in Jul 2022 Acute drop to 25,000 in Aug 2022, underwent BM biopsy at [facility] - concerning for MDS was treated for ITP at [facility] without any change in status (IVIG, etc) platelet transfusion level <[id number] appreciate Dr[address] Luis consultation (5) Atrial fibrillation, permanent: Plan: cont BB eliquis d/c due to #4 rate control wnl (6) Diarrhea: Plan: Chronic Continue Imodium PRN Add scheduled colestipol if it worsens - stool biofire and cdiff testing (7) Chronic respiratory failure with hypoxia: Plan: Chronic/stable Continue 3L of O2 via [place] Stiolto Respimat & Duonebs (8) Stage 3 chronic kidney disease: Plan: stable BMP am (9) CHF (congestive heart failure): Plan: compensated (10) Chronic obstructive pulmonary disease: Plan: with o2 dependency (11) History of stroke: Plan: unfortunately needs to be off her Eliquis due to severe thrombocytopenia (12) History of breast cancer: (13) Weakness: Plan: 2nd to new onset MDS with severe anemia etc (14) Non-Hodgkin lymphoma: Plan: history of -- 2017 (15) Candidiasis of mouth and esophagus: Plan: add nystatin lux 5cc qid (16) Restless leg syndrome: Plan: excellent response to mirapex overnight continue such at same dose Fe infusions may help symptoms as well Plan PT, MICHEAL price - suspect she will need SNF placement; was living alone before this admission and family states she couldn't even get up from the chair 25 min discussion with pt & her family today at bedside see HPI formal palliative care consult requested total care coordination today about 50 min Admission and Anticipated Discharge Date Admission Date: August 31, 2022 Subjective patient finally slept last night she is thankful for that - hadn't sleep in several weeks despite better sleep she is still very tired, no appetite, fatigued, just worn out patient had nausea earlier today requiring additional anti-emetics she continues with diarrhea - but this is chronic no abd pain no vomiting c/o dysuria this am to the medical staff mild cough - also chronic met with pt's son, daughter in law, and the patient at bedside 25 min discussion regarding all test results, MDS dx, ramification of this diagnosis, Rx options, palliative care, hospice, differences between palliative care/hospice, disposition at discharge (likely SNF - she lives alone and she is too weak) patient is leaning towards NO chemo agents for the MDS but is interested in transfusional support Review of Systems Review of Systems: gen - severe fatigue/weakness; no fever mouth - ongoing mouth pain from an ulcer L side of mouth CV - no cp pulm - MANE but no dyspnea at rest GI - no vomiting Physical Exam Physical Exam: gen - looks unwell, tired/fatigued; but NAD, pleasant mouth - MMM, ?thrush on tongue and ulcer back of L side of mouth neck - no JVD heart - irregularly irregular, s1 s2 lungs - CTA b/l abd - soft NT ND BS+ ext - pulses 2+ b/l, no edema skin - bruises on arms unchanged psych - restricted affect Results & Data Results & Data ([facility]) Vital Signs (Past 12 Hours) Vital Signs Temp Pulse Pulse Resp BP Pulse Ox O2 Del Method 09/02/22 14:14 100 H 09/02/22 08:15 Nasal Cannula 09/02/22 11:48 37.5 C 82 16 132/76 95 Nasal Cannula 09/02/22 07:24 36.9 C 88 16 133/66 100 Nasal Cannula 09/02/22 06:00 86 O2 Flow Rate 09/02/22 14:14 09/02/22 08:15 3 09/02/22 11:48 3 09/02/22 07:24 3 09/02/22 06:00 Laboratory Results Laboratory Results - last 24 hr 09/02/22 09/02/22 09:03 09:03 WBC 4.28 L RBC 2.15 L Hgb 7.5 L Hct 22.3 L MCV 103.7 H MCH 34.9 H MCHC 33.6 RDW Std Deviation 65.9 H RDW Coeff of Zackary 18.5 H Plt Count 17 L* Immature Gran % (Auto) 6.5 Neut % (Auto) 45.6 Lymph % (Auto) 24.5 [place] % (Auto) 22.7 Eos % (Auto) 0.2 Baso % (Auto) 0.5 Neut # (Auto) 1.95 Lymph # (Auto) 1.05 L [place] # (Auto) 0.97 H Eos # (Auto) 0.01 Baso # (Auto) 0.02 Immature Gran # (Auto) 0.28 H Anisocytosis Present Sodium 134 L Potassium 4.3 Chloride 102 Carbon Dioxide 27 Anion Gap 5 BUN 25 H Creatinine 1.19 Est Cr Clr Drug Dosing 39.5 Est GFR ( Amer) 49.2 Est GFR (Non-Af Amer) 42.5 BUN/Creatinine Ratio 21.0 H Glucose 140 H Calcium 9.0 PG Care Time/CCT Total # of Minutes Spent Total Time Spent with Patient: Total time spent is greater than 50% in coordination of care (as documented) at patient's floor/unit and/or counseling patient: Coding Level of Care Code 90850 SUB INP/OBS CARE 350MIN Diagnoses MDS (myelodysplastic syndrome) D46.9 Pancytopenia D61.818 Acute on chronic anemia D64.9 Thrombocytopenia D69.6 Atrial fibrillation, permanent I48.21 Diarrhea R19.7 Diarrhea type: unspecified type Chronic respiratory failure with hypoxia J96.11 Stage 3 chronic kidney disease N18.3 CHF (congestive heart failure) I50.9 Heart failure chronicity: acute Heart failure type: unspecified Chronic obstructive pulmonary disease J44.9 History of stroke Z86.73 History of breast cancer Z85.3 Weakness R53.1 Non-Hodgkin lymphoma C85.90 Candidiasis of mouth and esophagus B37.81; B37.0 Restless leg syndrome G25.81 (6) Diarrhea Diarrhea type: unspecified type Qualified Code(s): R19.7 - Diarrhea, unspecified (9) CHF (congestive heart failure) Heart failure chronicity: acute Heart failure type: unspecified Qualified Code(s): I50.9 - Heart failure, unspecified
[2022-09-02] MEDS: NYSTATIN SUSP 500,000 U/5 ML UDC PO SCH ×2 (16:20→22:26)
[2022-09-02] MEDS: ACETAMINOPHEN 325 MG TAB PO PRN (22:26)
[2022-09-02] MEDS: PRAMIPEXOLE DIHYDROCHLO 0.25 MG TAB PO SCH (23:52)
[2022-09-03 07:16] LABS: Hematocrit (blood only) 20.4 % (37.0-47.0); Hemoglobin 6.9 g/dl (12.0-16.0); Mean Corpuscular Hgb Conc 33.8 g/dL (32.0-36.0); Mean Corpuscular Volume 103.6 fL (80.0-100.0); Platelet Count 14 K/uL (130-400); RDW Standard Deviation 64.1 fL (36.4-46.3); Red Blood Count 1.97 M/uL (4.20-5.40); White Blood Count 3.66 K/ul (4.8-10.8)
[2022-09-03] MEDS ORDERED: SODIUM CHLORIDE 0.9% 250 ML IV PRN (07:44)
[2022-09-03] MEDS: ONDANSETRON INJ 2 MG/ML 2 ML VIAL IV PRN ×2 (07:51→17:22)
[2022-09-03] MEDS: ACETAMINOPHEN 325 MG TAB PO PRN ×2 (07:52→18:29)
[2022-09-03] MEDS: HEPARIN 100 UNIT/ML 5ML FLUSH FLUSH PRN ×3 (07:52→17:22)
[2022-09-03] MEDS: FIRST - Mouthwash BLM 119 ML PO SCH ×4 (08:00→21:14)
[2022-09-03] MEDS: METOPROLOL TARTRATE 25 MG TAB PO SCH ×2 (08:34→21:14)
[2022-09-03] MEDS: guaiFENesin 600 MG TABCR PO SCH ×2 (08:34→21:13)
[2022-09-03] MEDS: BENZONATATE 100 MG CAPSULE PO SCH ×3 (08:34→21:13)
[2022-09-03] MEDS: PANTOprazole 40 MG in SYRINGE 0 ML IV SCH ×2 (08:35→21:14)
[2022-09-03] MEDS: COLESTIPOL HCL 1 GM TAB PO SCH (08:35)
[2022-09-03] MEDS: NYSTATIN SUSP 500,000 U/5 ML UDC PO SCH ×4 (08:35→21:14)
--- NOTE | 2022-09-03 11:42 | Palliative Care Consultation ---
Date of Consultation September 03, 2022 Assessment & Plan (1) Pain: generalized and largely chronic She declines medication other than tylenol at this time. She did express concern about getting addicted to pain medications. I reassured her that this was not a concern in her current situation. (2) Dyspnea: On supplemental O2 Continue opioid discussion (3) Palliative care encounter: Long discussion with Marilyn and her son about how she is coping with her illness and what her goals are moving forward. She tells me that she is tired and that she is not interested in any further cancer treatment. She would like to go home but does not have 21/01 caregiver support at home. She talks openly about her dying time and the family members who have that she is looking forward to seeing. She has strong evelyn which comforts her at this time. Her son is reaching out to her hand ii cutter to provide spiritual support. There are some family members who are having a difficult time with the idea of her dying but family is very supportive of her decision to focus on comfort and symptom management. We discussed transfusions and she does not feel that she is getting any benefit from transfusions. She would like to stop transfusions after the current orders are complete. We discussed shift of care to comfort measures only after transfusions and she and her son are in agreement with this. We will discuss further tomorrow, and make transition to comfort measures. History of Present Illness Reason for Consultation: goals of care Requesting Physician: Dr. Fan Attending Physician: Shan Fan History of Present Illness 81 yo lady with remote history of right breast cancer s/p mastectomy and adjuvant chemotherapy. She is followed by Dr. Luis and also had R-[facility] treatment for Diffuse large B cell lymphoma in 2017/2017. She has had ongoing problems with chronic anemia. About three weeks ago, she noticed markedly increased fatigue, dyspnea and decreased appetite. She was found to have thrombocytopenia in addition to her chronic anemia and bone marrow biopsy suggests myelodysplastic syndrome. She was significantly anemic on admission with hemoglobin of 6.0 as well as platelet count of 21,000. She did have transfusion of of 2 units PRBCs two days ago, but tells me that she really doesn't feel much better. She continues to have shortness of breath at rest, weakness and poor appetite with nausea. She had a dip in her hemoglobin to 6.9 today and her platelet count has trended down to 14,000. She is receiving transfusions of both today. She tells me that she has chronic pain and is used to that. She has declined opioid pain medication in the past. Allergies Allergy/AdvReac Type Severity Reaction Status Date / Time dexamethasone Allergy Severe Shortness Verified 08/31/22 11:41 of Breath, throat constriction Sulfa (Sulfonamide Allergy Severe HIVES Verified 08/31/22 11:41 Antibiotics) adhesive tape Allergy Intermediate redness, Verified 08/31/22 11:41 irritation, peels skin off amoxicillin Allergy Unknown hives Verified 08/31/22 11:41 azithromycin Allergy Unknown Hives Verified 08/31/22 11:41 [From Zithromax Z-Siddhartha] clavulanic acid Allergy Unknown hives Verified 08/31/22 11:41 meperidine Allergy Unknown HIVES Verified 08/31/22 11:41 Penicillins Allergy Unknown hives Verified 08/31/22 11:41 cephalexin [From Keflex] Allergy Verified 08/31/22 11:41 ciprofloxacin [From Cipro] AdvReac Severe Vomiting Verified 08/31/22 11:41 codeine AdvReac Unknown NAUSEA AND Verified 08/31/22 11:41 VOMITING ketorolac AdvReac Unknown 'increased Verified 08/31/22 11:41 bleeding' Home Medications Medication Instructions Recorded Confirmed Type acetaminophen 500 mg tablet 500 mg PO HS 06/03/19 08/31/22 History (Tylenol Extra Strength) cholecalciferol (vitamin D3) 25 1,000 units PO QAM 07/31/19 08/31/22 History mcg (1,000 unit) tablet cinnamon bark 500 mg capsule 1,000 mg PO QAM 07/31/19 08/31/22 History cyanocobalamin (vitamin B-12) 1,000 mcg PO HS 07/31/19 08/31/22 History 1,000 mcg capsule budesonide 0.5 mg/2 mL suspension 0.5 mg inhalation BID PRN 03/24/21 08/31/22 History for nebulization Shortness Of Breath Or Wheezing tiotropium 2.5 mcg-olodaterol 2.5 2 puff inhalation QAM 03/24/21 08/31/22 History mcg/actuation mist for inhalation (Stiolto Respimat) Oxygen Home #1 ea 05/11/21 08/31/22 Rx albuterol sulfate 90 mcg/actuation 2 puff inhalation Q6 PRN shortness 10/06/21 08/31/22 History aerosol inhaler (Ventolin HFA) of breath or wheezing mirabegron 50 mg tablet,extended 50 mg PO HS #90 tabs 12/29/21 08/31/22 Rx release 24 hr (Myrbetriq) potassium chloride 10 mEq 20 meq PO QAM 12/31/21 08/31/22 History tablet,extended release(part/cryst) loperamide 2 mg capsule 2 mg PO Q4H PRN diarrhea #30 caps 04/15/22 08/31/22 Rx furosemide 40 mg tablet 40 mg PO BID #60 tabs 06/09/22 08/31/22 Rx elevated toilet seat frame #1 ea 08/03/22 08/31/22 Rx benzocaine 20 % oral mucosal 1 ea mucous membrane UD PRN mouth 08/24/22 08/31/22 History liquid (Anbesol (benzocaine) sores Maximum Strength) metoprolol tartrate 25 mg tablet 25 mg PO AMHS 08/24/22 08/31/22 History benzonatate 100 mg capsule 100 mg PO TID 08/31/22 08/31/22 History calcium carbonate 600 mg-vitamin 1 tab PO QAM 08/31/22 08/31/22 History D3 5 mcg (200 unit) tablet camphor 3.1 %-methyl salicylate 10 1 patch topical DAILY 08/31/22 08/31/22 History %-menthol 6 % topical patch (Salonpas) ipratropium 0.5 mg-albuterol 3 mg 3 ml inhalation Q4H PRN Shortness 08/31/22 08/31/22 History (2.5 mg base)/3 mL nebulization Of Breath Or Wheezing soln mometasone 50 mcg/actuation nasal 2 spray intranasal DAILY 08/31/22 08/31/22 History spray omega-3 fatty acids 1,000 mg 1,000 mg PO QAM 08/31/22 08/31/22 History capsule ondansetron 4 mg disintegrating 4 mg translingual Q8 PRN Nausea 08/31/22 08/31/22 History tablet pantoprazole 40 mg tablet,delayed 40 mg PO AMHS #60 tabs 09/01/22 Rx release Patient History Medical History Acid reflux disease Anemia Anticoagulant long-term use Biceps muscle tear Chest pain syndrome Chronic otitis media of left ear with effusion Chronic pain of left upper extremity SHOULDER Chronic respiratory failure with hypoxia Degenerative disc disease Dyspnea on exertion Esophageal dysmotility ETD (eustachian tube dysfunction) Folic acid deficiency Hemarthrosis, left knee History of breast cancer right breast cancer -- CHEMO. sx. History of stroke 2014. Small chronic lacunar infarct noted on 03/[address] no residual. Hypertension Hypokalemia Lumbar stenosis with neurogenic claudication Nephrolithiasis HX OF Nocturnal hypoxia Non-Hodgkin lymphoma 2017 - CHEMO AND RADIATION On home O2 3 LPM cont Osteoarthritis Pancytopenia Paroxysmal atrial fibrillation hx mult cardioversions; on eliquis; follows with Dr. Sullivan Peripheral neuropathy Pneumonia Port-A-Cath in place HAS IT FLUSHED EVERY 6 WEEKS Rosacea Scoliosis Spinal stenosis Stage 3 chronic kidney disease Stress incontinence Thrombocytopenia Thyroid nodule Vitamin D deficiency Surgical History H/O colonoscopy H/O dilation and curettage multiple H/O: hysterectomy EVELIA History of appendectomy History of back surgery lumbar fusion History of bladder surgery bladder tack History of bronchoscopy History of cardioversion History of esophagogastroduodenoscopy (EGD) History of lobectomy of lung Left upper lobe r/t nodule (granuloma) History of mastectomy right with lymph node removal History of tonsillectomy S/P cervical spinal fusion x2 (1970s) unsure of levels. ROM WNL S/P cholecystectomy S/P thyroid biopsy negative Status post arthroscopy of left knee Family History Mother Coronary heart disease Cancer Atrial fibrillation Heart disease Hypertension Father Coronary heart disease Myocardial infarction Cancer Heart disease Hypertension Aunt Cancer Brother Prostate cancer Son Bladder cancer Other No family history of adverse response to anesthesia No family history of bleeding disorder Stroke Denies family history of Ovarian cancer Hearing loss Kidney disease Breast cancer Colorectal cancer Asthma Social History Smoking Status: Never smoker Second Hand Exposure: Yes (Spouse smoked); Hx Alcohol Use: No Hx Substance Use: No Preferred Language: Martiniquais Communication Ability: Effective Visual Impairment: Partially Limited Hearing Ability: Normal Fund Director Required: No Beliefs That Will Affect Care: None marital status: / Current Living Situation: Alone current occupational status: retired How many Children do You have: 1 Feels Safe at Home: Yes and No Is there a partner from a previous relationship who is making you feel unsafe now?: No Any Concerns about Your Family Situation: No Would You Like to Speak to Someone About Your Situation: No Safety Concerns: Feels Safe At This Time Childhood Exposure to Second-Hand Smoke: No caffeine: No (daria mariana, pepsi) Dental Care, Regularly: No Physical Activity Frequency: Daily Physical Activity Frequency Comment: Does exercises that PT taught her. Seatbelt Use: always Sunscreen Use: No Do you think of yourself as: straight/heterosexual Gender Identity: Female Assistive Devices: Oxygen - Continuous and Walker Review of Systems Review of Systems: ESAS Pain 1/3 Dyspnea 2/3 NAusea 2/3 Drowsiness 0/3 Fatigue 3/3 Physical Exam Constitutional: + frail appearing; no acute distress Respiratory: + labored breathing and + uses accessory muscles at rest Skin: warm and dry Neurologic: Speech / Cognition: normal cognition Psychiatric: Orientation: oriented x 3 Results & Data ([facility]) Vital Signs (Past 12 Hours) Vital Signs Temp Pulse Pulse Resp BP BP Pulse Ox 09/03/22 09:52 98.8 F 97 H 16 116/69 99 09/03/22 09:22 98.6 F 89 18 114/66 100 09/03/22 09:07 99.0 F 89 19 110/52 L 100 09/03/22 08:52 09/03/22 08:51 97.9 F 102 H 22 105/65 100 09/03/22 08:17 98.6 F 72 18 140/70 100 O2 Del Method O2 Flow Rate 09/03/22 09:52 3 09/03/22 09:22 3 09/03/22 09:07 09/03/22 08:52 Nasal Cannula 3 09/03/22 08:51 6 09/03/22 08:17 Nasal Cannula 7 PG Care Time/CCT Total # of Minutes Spent Total Time Spent with Patient: Total time spent is greater than 50% in coordination of care (as documented) at patient's floor/unit and/or counseling patient:[id number] Coding Level of Care Code 41484 INT INP/OBS CARE 3/75MIN Diagnoses Pain R52 Dyspnea R06.00 Palliative care encounter Z51.5
[2022-09-03] MEDS: ERTAPENEM SODIUM 1,000 MG in SYRINGE 0 ML IV SCH (11:52)
[2022-09-03] MEDS ORDERED: MELATONIN 3 MG TAB PO PRN (20:02)
[2022-09-03] MEDS: PRAMIPEXOLE DIHYDROCHLO 0.25 MG TAB PO SCH (21:13)
[2022-09-03] MEDS ORDERED: LORazepam 0.5 MG TAB PO STA (21:24)
--- NOTE | 2022-09-03 21:25 | Hospitalist Progress Note ---
Date of Service September 03, 2022 Assessment & Plan (1) MDS (myelodysplastic syndrome): Plan: s/p BMB at [facility] poor performance/functional status - may not do well on chemo agents Appreciate Dr Luis's consultation Tx PRBCs and platelets again today - 1 unit PRBCs, 1 unit platelets following these infusions the patient declines future transfusion recent B12/folate/TSH wnl serum copper level sent and pending stop any further CBC checks patient wishing to transition to hospice appreciate palliative care consultation and assistance (2) Pancytopenia: Plan: 2nd to MDS could be a component of nutritional def as well but b12/folate both wnl TSH wnl copper level dispatched no further blood work (3) Acute on chronic anemia: Plan: may have mild component from recent GI bleeding but most of anemia is 2nd to #1 s/p 2 units PRBCs hospital day #1; will transfuse a 3rd unit today gave venofer 200mg x 1 3/4 gave venofer 300mg x 1 3/5 GI has consulted - no scopes at this time cont PPI no further cbc checks (4) Thrombocytopenia: Plan: Noted platelet count of 110 in March 2022 and 92 in Jul 2022 Acute drop to 25,000 in Aug 2022, underwent BM biopsy at [facility] - concerning for MDS was treated for ITP at [facility] without any change in status (IVIG, etc) see above (5) Atrial fibrillation, permanent: Plan: cont BB eliquis d/c due to #4 rate control acceptable (6) Diarrhea: Plan: Chronic Continue Imodium PRN Added scheduled colestipol - consider increase to BID dosing if needed (7) Chronic respiratory failure with hypoxia: Plan: Chronic/stable Continue 3L of O2 via [place] Stiolto Respimat & Duonebs (8) Stage 3 chronic kidney disease: Plan: stable (9) CHF (congestive heart failure): Plan: compensated (10) Chronic obstructive pulmonary disease: Plan: with o2 dependency (11) History of stroke: Plan: unfortunately needs to be off her Eliquis due to severe thrombocytopenia but, regardless, transitioning to palliative care / hospice (12) History of breast cancer: (13) Weakness: Plan: 2nd to new onset MDS with severe anemia etc (14) Non-Hodgkin lymphoma: Plan: history of -- 2017 (15) Candidiasis of mouth and esophagus: Plan: nystatin lux 5cc qid (16) Restless leg syndrome: Plan: cont mirapex (17) UTI (urinary tract infection): Plan: GNR was symptomatic for such over the weekend multiple abx allergies thus, ertapenem daily started (18) Insomnia: Plan: treated RLS with mirapex and this did help with RLS symptoms however, still not sleeping restfully thus - trial of ativan 0.25mg PO x 1 at HS tonight Plan PT, OT dee - suspect she will need SNF placement; was living alone before this admission and family states she couldn't even get up from the chair at her home pre-hospitalization dispo - to SNF w/ hospice? Admission and Anticipated Discharge Date Admission Date: August 31, 2022 Subjective patient resting in bed with grand-daughter and great grand-daughter present patient says "I'm ready to go" she came to the conclusion today that despite transfusional support she realizes it isn't going to "make her feel better" indeed following her PRBCs / platelets today she "felt no different" she continues with diarrhea, lack of appetite, mouth pain, poor sleep, nausea she "just wants to rest" we discussed palliative care and hospice again patient states she is "ready" to simply be comfortable she declines any further blood transfusions or labs Review of Systems Review of Systems: gen - severely fatigued cv - no chest pain pulm - short of breath at times GI - dyspepsia, diarrhea, no vomiting - recent dysuria Physical Exam Physical Exam: gen - looks unwell, tired/fatigued; very pleasant mouth - MMM, unchanged ulceration posterior L mouth; thrush improved neck - no JVD heart - irregularly irregular, s1 s2, no murmur lungs - CTA b/l abd - soft NT ND BS+ ext - pulses 2+ b/l, no edema skin - bruises on arms unchanged psych - a/o x 3 Results & Data Results & Data ([facility]) Vital Signs (Past 12 Hours) Vital Signs Temp Pulse Resp BP Pulse Ox O2 Flow Rate 09/03/22 18:27 38.1 C H 09/03/22 16:20 37.6 C H 97 H 18 119/73 99 3 09/03/22 15:02 37.6 C H 94 H 18 119/73 99 3 09/03/22 14:02 37.7 C H 96 H 18 116/71 100 3 09/03/22 14:25 36.9 C 94 H 18 119/72 100 3 09/03/22 12:00 36.6 C 100 H 18 134/73 100 09/03/22 12:30 37.0 C 103 H 16 116/68 100 3 09/03/22 12:15 37.2 C 102 H 20 112/64 99 3 09/03/22 12:01 36.8 C 112 H 20 118/70 09/03/22 09:52 37.1 C 97 H 16 116/69 99 3 Laboratory Results Laboratory Results - last 24 hr 08/31/22 08/31/22 09/03/22 14:05 14:05 06:20 WBC 3.66 L RBC 1.97 L Hgb 6.9 L* Hct 20.4 L* MCV 103.6 H MCH 35.0 H MCHC 33.8 RDW Std Deviation 64.1 H RDW Coeff of Zackary 18.0 H Plt Count 14 L* Peripher Smr Path Cons Haptoglobin 185 Blood Type Antibody Screen Crossmatch 09/03/22 08:05 WBC RBC Hgb Hct MCV MCH MCHC RDW Std Deviation RDW Coeff of Zackary Plt Count Peripher Smr Path Cons Haptoglobin Blood Type O Positive Antibody Screen NEGATIVE Crossmatch See Detail Diagnostic Findings urine cx - >100,000 CFU GNR PG Care Time/CCT Total # of Minutes Spent Total Time Spent with Patient: Total time spent is greater than 50% in coordination of care (as documented) at patient's floor/unit and/or counseling patient: Coding Level of Care Code 69806 SUB INP/OBS CARE MIN Diagnoses MDS (myelodysplastic syndrome) D46.9 Pancytopenia D61.818 Acute on chronic anemia D64.9 Thrombocytopenia D69.6 Atrial fibrillation, permanent I48.21 Diarrhea R19.7 Diarrhea type: unspecified type Chronic respiratory failure with hypoxia J96.11 Stage 3 chronic kidney disease N18.3 CHF (congestive heart failure) I50.9 Heart failure chronicity: acute Heart failure type: unspecified Chronic obstructive pulmonary disease J44.9 History of stroke Z86.73 History of breast cancer Z85.3 Weakness R53.1 Non-Hodgkin lymphoma C85.90 Candidiasis of mouth and esophagus B37.81; B37.0 Restless leg syndrome G25.81 UTI (urinary tract infection) N39.0 Insomnia G47.00 (6) Diarrhea Diarrhea type: unspecified type Qualified Code(s): R19.7 - Diarrhea, unspecified (9) CHF (congestive heart failure) Heart failure chronicity: acute Heart failure type: unspecified Qualified Code(s): I50.9 - Heart failure, unspecified
[2022-09-04] MEDS: HEPARIN 100 UNIT/ML 5ML FLUSH FLUSH PRN ×4 (07:45→19:44)
[2022-09-04] MEDS: ONDANSETRON INJ 2 MG/ML 2 ML VIAL IV PRN ×2 (07:45→14:46)
[2022-09-04] MEDS: FIRST - Mouthwash BLM 119 ML PO SCH ×4 (08:46→22:13)
[2022-09-04] MEDS: NYSTATIN SUSP 500,000 U/5 ML UDC PO SCH ×4 (08:48→22:07)
[2022-09-04] MEDS: METOPROLOL TARTRATE 25 MG TAB PO SCH (08:49)
[2022-09-04] MEDS: guaiFENesin 600 MG TABCR PO SCH (08:49)
[2022-09-04] MEDS: PANTOprazole 40 MG in SYRINGE 0 ML IV SCH (08:49)
[2022-09-04] MEDS: ERTAPENEM SODIUM 1,000 MG in SYRINGE 0 ML IV SCH (08:51)
[2022-09-04] MEDS: BENZONATATE 100 MG CAPSULE PO SCH ×3 (08:52→22:07)
[2022-09-04] MEDS ORDERED: UMECLIDINIUM/VILANTEROL 62.5/25MCG 7 PUFFS/INHALER INH SCH (09:00)
[2022-09-04] MEDS ORDERED: LORazepam 0.5 MG TAB PO PRN (10:06)
--- NOTE | 2022-09-04 10:17 | Palliative Care Progress Note ---
Date of Service September 04, 2022 Assessment & Plan (1) Pain: Plan: She has been reluctant to take opioid pain medications. We discussed that again today. She is agreeable to medication to relieve her pain. We discussed possible sedation with medications and she understands this but would prefer to be comfortable over being awake and alert. Will start prn IV morphine for pain and monitor. (2) Dyspnea: Plan: With chronic respiratory failure related to COPD, exacerbated by anemia Morphine will provide relief for air hunger as well as cough (3) Nausea: Plan: Refractory to zofran. Add routine zyprexa low dose BID. (4) Palliative care encounter: Plan: I talked with Marilyn about her wishes for care moving forward. She realizes that she is approaching her dying time and tells me that she is ready to go. She is used to being independent and active and does not feel that she has good quality of life at this time. She did have an opportunity to speak with her granddaughter yesterday to explain her desire for focus on comfort. She has strong evelyn and tells me that she knows where she is going. Her manager contract has been contacted to provide spiritual support. We discussed adjusting medications to focus on those that will improve her comfort. She tells me that is what she wants. Her wish is to peacefully. I spoke with her son also. He supports her decision and wants whatever medication necessary to maintain her comfort. We discussed sedation and he acknowledges this but prefers that she be comfortable. We discussed prognosis which is likely only a few days. Notified Dr. Herrera and discussed plan of care with RN. Admission and Anticipated Discharge Date Admission Date: August 31, 2022 Subjective Weak, clearly uncomfortable. Complains of sore mouth, generalized pain and pain in her feet. She also complains of cough and nausea, not relieved with zofran. Review of Systems Review of Systems: ESAS Pain 2/3 Dyspnea 2/3 Nausea 2/3 Drowsiness 1/3 Physical Exam Constitutional: + ill appearing; + uncomfortable ENMT: Mouth: + dry oral mucous membranes Respiratory: + labored breathing and + uses accessory muscles Skin: warm and dry, multiple ecchymotic areas Neurologic: Speech / Cognition: normal cognition Results & Data ([facility]) Vital Signs (Past 12 Hours) Vital Signs Temp Pulse Resp BP Pulse Ox O2 Del Method O2 Flow Rate 09/04/22 07:26 98.2 F 97 H 16 125/71 99 Nasal Cannula 3 09/03/22 22:41 98.2 F 86 18 103/66 99 Nasal Cannula 3 PG Care Time/CCT Total # of Minutes Spent Total Time Spent: 42 Total Time Spent with Patient: Total time spent is greater than 50% in coordination of care (as documented) at patient's floor/unit and/or counseling patient:[id number] symptom management, goals of care, prognosis, patient and family education and support, coordination of care. Coding Level of Care Code 51486 SUB INP/OBS CARE 2/35MIN Diagnoses Pain R52 Dyspnea R06.00 Nausea R11.0 Palliative care encounter Z51.5
[2022-09-04] MEDS: COLESTIPOL HCL 1 GM TAB PO SCH (10:27)
[2022-09-04] MEDS: MoRPHine SULFATE 2 MG/ML CARP IV PRN ×3 (10:34→19:43)
[2022-09-04] MEDS: OLANZapine ZYDIS 5 MG ORALLY DIS. TAB PO SCH ×2 (11:17→22:07)
--- NOTE | 2022-09-04 14:00 | Hospitalist Progress Note ---
Date of Service September 04, 2022 Assessment & Plan (1) MDS (myelodysplastic syndrome): Plan: s/p BMB at [facility] poor performance/functional status - may not do well on chemo agents Appreciate Dr Luis's consultation has been transfused blood and platelets, following these infusions the patient declines future transfusion patient wishing to transition to hospice appreciate palliative care consultation and assistance (2) Pancytopenia: Plan: 2nd to MDS could be a component of nutritional def as well but b12/folate both wnl TSH wnl copper level dispatched no further blood work (3) Acute on chronic anemia: Plan: may have mild component from recent GI bleeding but most of anemia is 2nd to #1 s/p 3 units PRBCs gave venofer 200mg x 1 3/4 gave venofer 300mg x 1 3/5 GI has consulted - no scopes at this time cont PPI no further cbc checks (4) Thrombocytopenia: Plan: Noted platelet count of 110 in March 2022 and 92 in Jul 2022 Acute drop to 25,000 in Aug 2022, underwent BM biopsy at [facility] - concerning for MDS was treated for ITP at [facility] without any change in status (IVIG, etc) Palliative on consult (5) Atrial fibrillation, permanent: Plan: cont BB eliquis d/c due to #4 rate control acceptable (6) Diarrhea: Plan: Chronic Continue Imodium PRN Added scheduled colestipol - consider increase to BID dosing if needed (7) Chronic respiratory failure with hypoxia: Plan: Chronic/stable Continue 3L of O2 via [place] Stiolto Respimat & Duonebs (8) Stage 3 chronic kidney disease: Plan: stable (9) CHF (congestive heart failure): Plan: compensated (10) Chronic obstructive pulmonary disease: Plan: with o2 dependency (11) History of stroke: Plan: unfortunately needs to be off her Eliquis due to severe thrombocytopenia but, regardless, transitioning to palliative care / hospice (12) History of breast cancer: (13) Weakness: Plan: 2nd to new onset MDS with severe anemia etc (14) Non-Hodgkin lymphoma: Plan: history of -- 2017 (15) Candidiasis of mouth and esophagus: Plan: nystatin lux 5cc qid (16) Restless leg syndrome: Plan: cont mirapex (17) UTI (urinary tract infection): Plan: GNR was symptomatic for such over the weekend multiple abx allergies Iniytially on ertapenem, which has been discontinued (18) Insomnia: Plan: treated RLS with mirapex and this did help with RLS symptoms however, still not sleeping restfully thus - trial of ativan 0.25mg PO x 1 at HS tonight Plan dispo - to SNF w/ hospice? Admission and Anticipated Discharge Date Admission Date: August 31, 2022 Subjective patient seen and examined, grand daughter by the bedside, does not want further blood transfusions, complains of pains, but dose not want to take opioids Review of Systems Review of Systems: All systems reviewed are negative, apart from the ones contained in the history. Physical Exam Physical Exam: The patient is awake, alert and oriented 3, well developed and well nourished, normocephalic and atraumatic, lying in bed and in no acute distress. HEENT--PERRL, EOMI, mucous membranes and oropharynx mildly dry Neck--supple. No JVD. No bruits. Thyroid normal, trachea midline, no adenopathy. Heart--normal S1 and S2. No murmurs, rubs or gallops. Lungs--clear bilaterally, no respiratory distress, no accessory muscle use. Abdomen--normal bowel sounds and soft. Mild epigastric and left sided abdominal pain Extremities--no cyanosis or clubbing. No edema. Dermatologic--normal skin turgor, normal color, no abnormal lymph nodes, no rash. Neurologic--cranial nerves II through XII grossly intact. Rheumatologic--normal range of motion. Psychiatric--normal affect. Results & Data Results & Data ([facility]) Vital Signs (Past 12 Hours) Vital Signs Temp Pulse Resp BP Pulse Ox O2 Del Method O2 Flow Rate 09/04/22 07:26 98.2 F 97 H 16 125/71 99 Nasal Cannula 3 PG Care Time/CCT Total # of Minutes Spent Total Time Spent with Patient: Total time spent is greater than 50% in coordination of care (as documented) at patient's floor/unit and/or counseling patient: Coding Level of Care Code 16660 SUB INP/OBS CARE 2/35MIN Diagnoses MDS (myelodysplastic syndrome) D46.9 Pancytopenia D61.818 Acute on chronic anemia D64.9 Thrombocytopenia D69.6 Atrial fibrillation, permanent I48.21 Diarrhea R19.7 Diarrhea type: unspecified type Chronic respiratory failure with hypoxia J96.11 Stage 3 chronic kidney disease N18.3 CHF (congestive heart failure) I50.9 Heart failure chronicity: acute Heart failure type: unspecified Chronic obstructive pulmonary disease J44.9 History of stroke Z86.73 History of breast cancer Z85.3 Weakness R53.1 Non-Hodgkin lymphoma C85.90 Candidiasis of mouth and esophagus B37.81; B37.0 Restless leg syndrome G25.81 UTI (urinary tract infection) N39.0 Insomnia G47.00 Time Spent (min) 35 (6) Diarrhea Diarrhea type: unspecified type Qualified Code(s): R19.7 - Diarrhea, unspecified (9) CHF (congestive heart failure) Heart failure chronicity: acute Heart failure type: unspecified Qualified Code(s): I50.9 - Heart failure, unspecified
[2022-09-05] MEDS: NYSTATIN SUSP 500,000 U/5 ML UDC PO SCH ×4 (08:46→20:47)
[2022-09-05] MEDS: FIRST - Mouthwash BLM 119 ML PO SCH ×4 (08:46→20:47)
[2022-09-05] MEDS: BENZONATATE 100 MG CAPSULE PO SCH ×3 (08:49→20:47)
[2022-09-05] MEDS: MoRPHine SULFATE 2 MG/ML CARP IV PRN ×5 (08:52→22:30)
[2022-09-05] MEDS: HEPARIN 100 UNIT/ML 5ML FLUSH FLUSH PRN (08:52)
[2022-09-05] MEDS: OLANZapine ZYDIS 5 MG ORALLY DIS. TAB PO SCH ×2 (09:43→20:48)
--- NOTE | 2022-09-05 11:58 | Hospitalist Progress Note ---
Date of Service September 05, 2022 Assessment & Plan (1) MDS (myelodysplastic syndrome): Plan: s/p BMB at [facility] poor performance/functional status - may not do well on chemo agents Appreciate Dr Luis's consultation has been transfused blood and platelets, following these infusions the patient declines future transfusion patient wishing to transition to hospice, she is currently comfort care appreciate palliative care consultation and assistance (2) Pancytopenia: Plan: 2nd to MDS could be a component of nutritional def as well but b12/folate both wnl TSH wnl copper level dispatched no further blood work she is comfort care (3) Acute on chronic anemia: Plan: may have mild component from recent GI bleeding but most of anemia is 2nd to #1 s/p 3 units PRBCs gave venofer 200mg x 1 3/4 gave venofer 300mg x 1 3/5 GI has consulted - no scopes at this time cont PPI no further cbc checks, she is comfort care (4) Thrombocytopenia: Plan: Noted platelet count of 110 in March 2022 and 92 in Jul 2022 Acute drop to 25,000 in Aug 2022, underwent BM biopsy at [facility] - concerning for MDS was treated for ITP at [facility] without any change in status (IVIG, etc) Palliative on consult (5) Atrial fibrillation, permanent: Plan: cont BB eliquis d/c due to #4 rate control acceptable (6) Diarrhea: Plan: Chronic Continue Imodium PRN Added scheduled colestipol - consider increase to BID dosing if needed (7) Chronic respiratory failure with hypoxia: Plan: Chronic/stable Continue 3L of O2 via [place] Stiolto Respimat & Duonebs (8) Stage 3 chronic kidney disease: Plan: stable (9) CHF (congestive heart failure): Plan: compensated (10) Chronic obstructive pulmonary disease: Plan: with o2 dependency (11) History of stroke: Plan: unfortunately needs to be off her Eliquis due to severe thrombocytopenia but, regardless, transitioning to palliative care / hospice (12) History of breast cancer: (13) Weakness: Plan: 2nd to new onset MDS with severe anemia etc (14) Non-Hodgkin lymphoma: Plan: history of -- 2017 (15) Candidiasis of mouth and esophagus: Plan: nystatin lux 5cc qid (16) Restless leg syndrome: Plan: cont mirapex (17) UTI (urinary tract infection): Plan: GNR was symptomatic for such over the weekend multiple abx allergies Iniytially on ertapenem, which has been discontinued (18) Insomnia: Plan: treated RLS with mirapex and this did help with RLS symptoms however, still not sleeping restfully thus - trial of ativan 0.25mg PO x 1 at HS tonight Plan dispo - to SNF w/ hospice? Admission and Anticipated Discharge Date Admission Date: August 31, 2022 Subjective patient seen and examined, complains of some soreness in the mouth, has been refusing food, drnks boost occasionally Review of Systems Review of Systems: All systems reviewed are negative, apart from the ones contained in the history. Physical Exam Physical Exam: The patient is awake, alert and oriented 3, well developed and well nourished, normocephalic and atraumatic, lying in bed and in no acute distress. HEENT--PERRL, EOMI, mucous membranes and oropharynx mildly dry Neck--supple. No JVD. No bruits. Thyroid normal, trachea midline, no adenopathy. Heart--normal S1 and S2. No murmurs, rubs or gallops. Lungs--clear bilaterally, no respiratory distress, no accessory muscle use. Abdomen--normal bowel sounds and soft. Mild epigastric and left sided abdominal pain Extremities--no cyanosis or clubbing. No edema. Dermatologic--normal skin turgor, normal color, no abnormal lymph nodes, no rash. Neurologic--cranial nerves II through XII grossly intact. Rheumatologic--normal range of motion. Psychiatric--normal affect. Results & Data Results & Data ([facility]) Vital Signs (Past 12 Hours) Vital Signs O2 Del Method O2 Flow Rate 09/05/22 08:35 Nasal Cannula 3 PG Care Time/CCT Total # of Minutes Spent Total Time Spent with Patient: Total time spent is greater than 50% in coordination of care (as documented) at patient's floor/unit and/or counseling patient: Coding Level of Care Code 28516 SUB INP/OBS CARE 2/35MIN Diagnoses MDS (myelodysplastic syndrome) D46.9 Pancytopenia D61.818 Acute on chronic anemia D64.9 Thrombocytopenia D69.6 Atrial fibrillation, permanent I48.21 Diarrhea R19.7 Diarrhea type: unspecified type Chronic respiratory failure with hypoxia J96.11 Stage 3 chronic kidney disease N18.3 CHF (congestive heart failure) I50.9 Heart failure chronicity: acute Heart failure type: unspecified Chronic obstructive pulmonary disease J44.9 History of stroke Z86.73 History of breast cancer Z85.3 Weakness R53.1 Non-Hodgkin lymphoma C85.90 Candidiasis of mouth and esophagus B37.81; B37.0 Restless leg syndrome G25.81 UTI (urinary tract infection) N39.0 Insomnia G47.00 Time Spent (min) 35 (6) Diarrhea Diarrhea type: unspecified type Qualified Code(s): R19.7 - Diarrhea, unspecified (9) CHF (congestive heart failure) Heart failure chronicity: acute Heart failure type: unspecified Qualified Code(s): I50.9 - Heart failure, unspecified
[2022-09-06] MEDS: NYSTATIN SUSP 500,000 U/5 ML UDC PO SCH ×4 (08:34→21:00)
[2022-09-06] MEDS: FIRST - Mouthwash BLM 119 ML PO SCH ×5 (08:34→21:00)
[2022-09-06] MEDS: OLANZapine ZYDIS 5 MG ORALLY DIS. TAB PO SCH ×2 (08:34→21:00)
[2022-09-06] MEDS: BENZONATATE 100 MG CAPSULE PO SCH ×3 (08:38→21:00)
[2022-09-06] MEDS: MoRPHine SULFATE 2 MG/ML CARP IV PRN (10:45)
--- NOTE | 2022-09-06 11:11 | Palliative Care Progress Note ---
Date of Service September 06, 2022 Assessment & Plan (1) Pain: Plan: Discussed morphine available for pain if she chooses. She understands that she does not have to suffer and that medication is available. It is her choice whether she wants to take the medication. Given hallucinations, will increase routine zyprexa. (2) Dyspnea: Plan: Discussed use of morphine for relief of dyspnea as well. She is currently comfortable at rest. (3) Nausea: Plan: Persistent nausea. Increase zyprexa (4) Palliative care encounter: Plan: Marilyn tells me that she is not afraid and is ready to . She is hopeful that this will happen quickly but understands that this is not in her control. She would prefer to be awake to make the most of time with her family but understands that medications for symptom relief are available. She asked about what to expect and we discussed anticipated trajectory of her dying time. Her granddaughter, Alexandra, is at bedside but left the room in tears. I sat with Alexandra and discussed her questions and concerns about Marilyn's illness. They are very close. Alexandra respects her decision and wants to support her in any way possible. We also discussed what to expect. Alexandra asked about grief support. Offered supervisor mold construction visit which she declines at this time, but will consider. We discussed options for bereavement support through hospice if Marilyn is transferred to [facility] or SNF with hospice. We also discussed [facility] as an available resource for grief support. Discussed with Dr. Herrera and case management. Admission and Anticipated Discharge Date Admission Date: August 31, 2022 Subjective Awake. Visiting with her granddaughter. She complains of generalized pain, dyspnea with minimal exertion and nausea. She is tolerating sips of liquids. She has been reluctant to use morphine because she wants to be awake for family and had some mild hallucinations with morphine. She describes two men coming into her room and trying to give her chemo. Review of Systems Review of Systems: ESAS Pain 1/3 Dyspnea 1/3 Nausea 1/3 Drowsiness 0/3 Physical Exam Constitutional: + ill appearing ENMT: Mouth: + dry oral mucous membranes Respiratory: uses accessory muscles Musculoskeletal: Extremities: extremities normal to inspection Neurologic: Speech / Cognition: normal cognition Genitourinary: zavala catheter Results & Data ([facility]) Vital Signs (Past 12 Hours) Vital Signs O2 Del Method O2 Flow Rate 09/06/22 00:00 Nasal Cannula 3 PG Care Time/CCT Total # of Minutes Spent Total Time Spent: 52 Total Time Spent with Patient: Total time spent is greater than 50% in coordination of care (as documented) at patient's floor/unit and/or counseling patient:[id number] Coding Level of Care Code 57295 SUB INP/OBS CARE 3/50MIN Diagnoses Pain R52 Dyspnea R06.00 Nausea R11.0 Palliative care encounter Z51.5
--- NOTE | 2022-09-06 12:21 | Hospitalist Progress Note ---
Date of Service September 06, 2022 Assessment & Plan (1) MDS (myelodysplastic syndrome): Plan: s/p BMB at [facility] poor performance/functional status Appreciate Dr Luis's consultation has been transfused blood and platelets, following these infusions the patient declines future transfusion patient wishing to transition to hospice, she is currently comfort care appreciate palliative care consultation and assistance She dose not want a lot of opioids for pain control, she wants to be lucid for her family Plan is SNF with Hospice (2) Pancytopenia: Plan: 2nd to MDS could be a component of nutritional def as well but b12/folate both wnl TSH wnl copper level dispatched no further blood work she is comfort care Plan is SNF with Hospice (3) Acute on chronic anemia: Plan: may have mild component from recent GI bleeding but most of anemia is 2nd to #1 s/p 3 units PRBCs gave venofer 200mg x 1 3/4 gave venofer 300mg x 1 3/5 GI has consulted - no scopes at this time cont PPI no further cbc checks, she is comfort care Plan is SNF with Hospice (4) Thrombocytopenia: Plan: Noted platelet count of 110 in March 2022 and 92 in Jul 2022 Acute drop to 25,000 in Aug 2022, underwent BM biopsy at [facility] - concerning for MDS was treated for ITP at [facility] without any change in status (IVIG, etc) Palliative on consult Plan is SNF with Hospice (5) Atrial fibrillation, permanent: Plan: patient is now comfirt care Plan is SNF with Hospice (6) Diarrhea: Plan: Chronic Continue Imodium PRN Added scheduled colestipol - consider increase to BID dosing if needed (7) Chronic respiratory failure with hypoxia: Plan: Chronic/stable Continue 3L of O2 via NC (8) Stage 3 chronic kidney disease: Plan: stable (9) CHF (congestive heart failure): Plan: compensated (10) Chronic obstructive pulmonary disease: Plan: with o2 dependency (11) History of stroke: Plan: stable Plan is SNF with Hospice (12) History of breast cancer: (13) Weakness: Plan: 2nd to new onset MDS with severe anemia etc (14) Non-Hodgkin lymphoma: Plan: history of -- 2017 (15) Candidiasis of mouth and esophagus: Plan: nystatin lux 5cc qid (16) Restless leg syndrome: Plan: cont mirapex (17) UTI (urinary tract infection): Plan: GNR was symptomatic for such over the weekend multiple abx allergies Iniytially on ertapenem, which has been discontinued (18) Insomnia: Plan: treated RLS with mirapex and this did help with RLS symptoms however, still not sleeping restfully thus - trial of ativan 0.25mg PO x 1 at HS tonight Plan Plan is SNF with Hospice Admission and Anticipated Discharge Date Admission Date: August 31, 2022 Subjective patient seen and examined today with Dr Watters at her bedside. she says she is comfortable with her decisions and is ready to go. she dose not want too much opioids so she can be awake and lucid for her family Review of Systems Review of Systems: All systems reviewed are negative, apart from the ones contained in the history. Physical Exam Physical Exam: The patient is awake, alert and oriented 3, well developed and well nourished, normocephalic and atraumatic, lying in bed and in no acute distress. HEENT--PERRL, EOMI, mucous membranes and oropharynx mildly dry Neck--supple. No JVD. No bruits. Thyroid normal, trachea midline, no adenopathy. Heart--normal S1 and S2. No murmurs, rubs or gallops. Lungs--clear bilaterally, no respiratory distress, no accessory muscle use. Abdomen--normal bowel sounds and soft. Mild epigastric and left sided abdominal pain Extremities--no cyanosis or clubbing. No edema. Dermatologic--normal skin turgor, normal color, no abnormal lymph nodes, no rash. Neurologic--cranial nerves II through XII grossly intact. Rheumatologic--normal range of motion. Psychiatric--normal affect. Results & Data Results & Data ([facility]) Vital Signs (Past 12 Hours) Vital Signs O2 Del Method O2 Flow Rate 09/06/22 09:30 Nasal Cannula 3 PG Care Time/CCT Total # of Minutes Spent Total Time Spent with Patient: Total time spent is greater than 50% in coordination of care (as documented) at patient's floor/unit and/or counseling patient: Coding Level of Care Code 87966 SUB INP/OBS CARE 2/35MIN Diagnoses MDS (myelodysplastic syndrome) D46.9 Pancytopenia D61.818 Acute on chronic anemia D64.9 Thrombocytopenia D69.6 Atrial fibrillation, permanent I48.21 Diarrhea R19.7 Diarrhea type: unspecified type Chronic respiratory failure with hypoxia J96.11 Stage 3 chronic kidney disease N18.3 CHF (congestive heart failure) I50.9 Heart failure chronicity: acute Heart failure type: unspecified Chronic obstructive pulmonary disease J44.9 History of stroke Z86.73 History of breast cancer Z85.3 Weakness R53.1 Non-Hodgkin lymphoma C85.90 Candidiasis of mouth and esophagus B37.81; B37.0 Restless leg syndrome G25.81 UTI (urinary tract infection) N39.0 Insomnia G47.00 Time Spent (min) 35 (6) Diarrhea Diarrhea type: unspecified type Qualified Code(s): R19.7 - Diarrhea, unspecified (9) CHF (congestive heart failure) Heart failure chronicity: acute Heart failure type: unspecified Qualified Code(s): I50.9 - Heart failure, unspecified
[2022-09-06] MEDS: MoRPHine SULFATE 10 MG/0.5 ML UDP PO PRN ×3 (13:10→22:35)
[2022-09-06] MEDS: ONDANSETRON INJ 2 MG/ML 2 ML VIAL IV PRN (22:35)
[2022-09-07] MEDS: FIRST - Mouthwash BLM 119 ML PO SCH ×7 (01:21→23:39)
[2022-09-07] MEDS: MoRPHine SULFATE 10 MG/0.5 ML UDP PO PRN ×2 (04:46→09:49)
[2022-09-07] MEDS: MoRPHine SULFATE 2 MG/ML CARP IV PRN ×5 (07:37→20:20)
[2022-09-07] MEDS: ONDANSETRON INJ 2 MG/ML 2 ML VIAL IV PRN (07:37)
[2022-09-07] MEDS: HEPARIN 100 UNIT/ML 5ML FLUSH FLUSH PRN (07:37)
[2022-09-07] MEDS: OLANZapine ZYDIS 5 MG ORALLY DIS. TAB PO SCH ×2 (08:00→20:22)
[2022-09-07] MEDS: NYSTATIN SUSP 500,000 U/5 ML UDC PO SCH ×4 (08:00→20:46)
[2022-09-07] MEDS: BENZONATATE 100 MG CAPSULE PO SCH ×3 (08:00→20:46)
--- NOTE | 2022-09-07 11:58 | Hospitalist Progress Note ---
Date of Service September 07, 2022 Assessment & Plan (1) MDS (myelodysplastic syndrome): Plan: s/p BMB at [facility] poor performance/functional status Appreciate Dr Luis's consultation has been transfused blood and platelets, following these infusions the patient declines future transfusion patient wishing to transition to hospice, she is currently comfort care appreciate palliative care consultation and assistance She dose not want a lot of opioids for pain control, she wants to be lucid for her family Plan is SNF with Hospice (2) Pancytopenia: Plan: 2nd to MDS could be a component of nutritional def as well but b12/folate both wnl TSH wnl no further blood work she is comfort care Plan is SNF with Hospice (3) Acute on chronic anemia: Plan: no further cbc checks, she is comfort care Plan is SNF with Hospice (4) Thrombocytopenia: Plan: Noted platelet count of 110 in March 2022 and 92 in Jul 2022 Acute drop to 25,000 in Aug 2022, underwent BM biopsy at [facility] - concerning for MDS was treated for ITP at [facility] without any change in status (IVIG, etc) No further blood draws, she is now comfort care Palliative on consult Plan is SNF with Hospice (5) Atrial fibrillation, permanent: Plan: patient is now comfirt care Plan is SNF with Hospice (6) Diarrhea: Plan: no diarrhea (7) Chronic respiratory failure with hypoxia: Plan: Chronic/stable Continue 3L of O2 via NC (8) Stage 3 chronic kidney disease: Plan: stable (9) CHF (congestive heart failure): Plan: compensated (10) Chronic obstructive pulmonary disease: Plan: with o2 dependency (11) History of stroke: Plan: stable Plan is SNF with Hospice (12) History of breast cancer: (13) Weakness: Plan: 2nd to new onset MDS with severe anemia etc (14) Non-Hodgkin lymphoma: Plan: history of -- 2017 (15) Candidiasis of mouth and esophagus: Plan: nystatin lux 5cc qid (16) Restless leg syndrome: Plan: cont mirapex (17) UTI (urinary tract infection): Plan: GNR was symptomatic for such over the weekend multiple abx allergies Iniytially on ertapenem, which has been discontinued (18) Insomnia: Plan: treated RLS with mirapex and this did help with RLS symptoms however, still not sleeping restfully thus - trial of ativan 0.25mg PO x 1 at HS tonight Plan Plan is SNF with Hospice Admission and Anticipated Discharge Date Admission Date: August 31, 2022 Subjective patient seen and examined today with grand daughter at her bedside. she says she is comfortable with her decisions and is ready to go. Review of Systems Review of Systems: All systems reviewed are negative, apart from the ones contained in the history. Physical Exam Physical Exam: The patient is awake, alert and oriented 3, well developed and well nourished, normocephalic and atraumatic, lying in bed and in no acute distress. HEENT--PERRL, EOMI, mucous membranes and oropharynx mildly dry Neck--supple. No JVD. No bruits. Thyroid normal, trachea midline, no adenopathy. Heart--normal S1 and S2. No murmurs, rubs or gallops. Lungs--clear bilaterally, no respiratory distress, no accessory muscle use. Abdomen--normal bowel sounds and soft. Mild epigastric and left sided abdominal pain Extremities--no cyanosis or clubbing. No edema. Dermatologic--normal skin turgor, normal color, no abnormal lymph nodes, no rash. Neurologic--cranial nerves II through XII grossly intact. Rheumatologic--normal range of motion. Psychiatric--normal affect. Results & Data Results & Data ([facility]) Vital Signs (Past 12 Hours) Vital Signs O2 Del Method O2 Flow Rate 09/07/22 08:00 Nasal Cannula 1 PG Care Time/CCT Total # of Minutes Spent Total Time Spent with Patient: Total time spent is greater than 50% in coordination of care (as documented) at patient's floor/unit and/or counseling patient: Coding Level of Care Code 04822 SUB INP/OBS CARE 2/35MIN Diagnoses MDS (myelodysplastic syndrome) D46.9 Pancytopenia D61.818 Acute on chronic anemia D64.9 Thrombocytopenia D69.6 Atrial fibrillation, permanent I48.21 Diarrhea R19.7 Diarrhea type: unspecified type Chronic respiratory failure with hypoxia J96.11 Stage 3 chronic kidney disease N18.3 CHF (congestive heart failure) I50.9 Heart failure chronicity: acute Heart failure type: unspecified Chronic obstructive pulmonary disease J44.9 History of stroke Z86.73 History of breast cancer Z85.3 Weakness R53.1 Non-Hodgkin lymphoma C85.90 Candidiasis of mouth and esophagus B37.81; B37.0 Restless leg syndrome G25.81 UTI (urinary tract infection) N39.0 Insomnia G47.00 Time Spent (min) 35 (6) Diarrhea Diarrhea type: unspecified type Qualified Code(s): R19.7 - Diarrhea, unspecified (9) CHF (congestive heart failure) Heart failure chronicity: acute Heart failure type: unspecified Qualified Code(s): I50.9 - Heart failure, unspecified
[2022-09-07] MEDS ORDERED: MoRPHine SULFATE 10 MG/0.5 ML UDP PO PRN (12:59)
--- NOTE | 2022-09-07 12:59 | Palliative Care Progress Note ---
Date of Service September 07, 2022 Assessment & Plan (1) Pain: Plan: increase roxanol to routine dosing continue prn if needed (2) Dyspnea: Plan: sat within normal limits off O2 continue opioid for relief of air hunger (3) Delirium: Plan: Likely terminal Very distressing to granddaughter and also to patient. Increase zyprexa (4) Palliative care encounter: Plan: Plan is comfort and symptom management focused. She is likely to within the next day or two. I talked with granddaughter, Alexandra, about what to expect and changes in plan of care to accommodate her symptoms. Alexandra is tearful but supports her granddmother and wants to be her until her dying time. Admission and Anticipated Discharge Date Admission Date: August 31, 2022 Subjective Difficult night last night. Increased hallucinations, increased anxiety, complaining of pain. Currently sleeping after being awake most of the night. Review of Systems Review of Systems: Pain 2/3 Dyspnea 0/3 Anxiety 2/3 Physical Exam Constitutional: + ill appearing ENMT: Mouth: + dry oral mucous membranes Respiratory: normal respiratory effort; no labored breathing Skin: warm and dry, no mottling Psychiatric: Hallucinations: + visual hallucinations talking to people not in the room, expressing concern that people are trying to give her chemo Results & Data ([facility]) Vital Signs (Past 12 Hours) Vital Signs O2 Del Method O2 Flow Rate 09/07/22 08:00 Nasal Cannula 1 PG Care Time/CCT Total # of Minutes Spent Total Time Spent with Patient: Total time spent is greater than 50% in coordination of care (as documented) at patient's floor/unit and/or counseling patient: Coding Level of Care Code 07379 SUB INP/OBS CARE 2/35MIN Diagnoses Pain R52 Dyspnea R06.00 Delirium R41.0 Palliative care encounter Z51.5
[2022-09-07] MEDS: MoRPHine SULFATE 10 MG/0.5 ML UDP PO SCH ×3 (13:50→22:10)
[2022-09-07] MEDS: LORazepam 2 MG/1 ML VIAL IV PRN (18:07)
[2022-09-07] MEDS ORDERED: LORazepam 2 MG/1 ML VIAL IV SCH (21:00)
[2022-09-08] MEDS: MoRPHine SULFATE 2 MG/ML CARP IV PRN ×3 (01:06→08:03)
[2022-09-08] MEDS: MoRPHine SULFATE 10 MG/0.5 ML UDP PO SCH ×3 (02:03→09:58)
[2022-09-08] MEDS: HEPARIN 100 UNIT/ML 5ML FLUSH FLUSH PRN ×3 (04:30→08:11)
[2022-09-08] MEDS: GLYCOPYRROLATE 0.2 MG/ML VIAL IV PRN ×2 (04:40→09:58)
[2022-09-08] MEDS: LORazepam 2 MG/1 ML VIAL IV PRN (04:41)
[2022-09-08] MEDS: FIRST - Mouthwash BLM 119 ML PO SCH ×2 (04:52→09:50)
[2022-09-08] MEDS: BENZONATATE 100 MG CAPSULE PO SCH (09:50)
[2022-09-08] MEDS: NYSTATIN SUSP 500,000 U/5 ML UDC PO SCH (09:50)
[2022-09-08] MEDS: OLANZapine ZYDIS 5 MG ORALLY DIS. TAB PO SCH (09:51)
--- NOTE | 2022-09-08 11:03 | Hospitalist Progress Note ---
Date of Service September 08, 2022 Assessment & Plan (1) MDS (myelodysplastic syndrome): Plan: s/p BMB at [facility] poor performance/functional status had been transfused blood and platelets, following these infusions the patient declines future transfusion patient wishing to transition to hospice, she is currently comfort care appreciate palliative care consultation and assistance She is now unresponsive, with kussmaul breathing, (2) Pancytopenia: Plan: 2nd to MDS could be a component of nutritional def as well but b12/folate both wnl TSH wnl no further blood work she is comfort care She is now unresponsive, with kussmaul breathing, (3) Acute on chronic anemia: Plan: no further cbc checks, she is comfort care She is now unresponsive, with kussmaul breathing, (4) Thrombocytopenia: Plan: Noted platelet count of 110 in March 2022 and 92 in Jul 2022 Acute drop to 25,000 in Aug 2022, underwent BM biopsy at [facility] - concerning for MDS was treated for ITP at [facility] without any change in status (IVIG, etc) No further blood draws, she is now comfort care Palliative on consult She is now unresponsive, with kussmaul breathing, (5) Atrial fibrillation, permanent: Plan: patient is now comfirt care She is now unresponsive, with kussmaul breathing, (6) Diarrhea: Plan: no diarrhea (7) Chronic respiratory failure with hypoxia: Plan: Chronic/stable Continue 3L of O2 via NC (8) Stage 3 chronic kidney disease: Plan: stable (9) CHF (congestive heart failure): Plan: compensated (10) Chronic obstructive pulmonary disease: Plan: with o2 dependency (11) History of stroke: Plan: stable Plan is SNF with Hospice (12) History of breast cancer: (13) Weakness: Plan: 2nd to new onset MDS with severe anemia etc (14) Non-Hodgkin lymphoma: Plan: history of -- 2017 (15) Candidiasis of mouth and esophagus: Plan: nystatin lux 5cc qid (16) Restless leg syndrome: Plan: cont mirapex (17) UTI (urinary tract infection): Plan: GNR was symptomatic for such over the weekend multiple abx allergies Iniytially on ertapenem, which has been discontinued She is now unresponsive, with kussmaul breathing, (18) Insomnia: Plan: She is now unresponsive, with kussmaul breathing, Plan She is now unresponsive, with kussmaul breathing, Admission and Anticipated Discharge Date Admission Date: August 31, 2022 Subjective patient no longer responsive, Kussmaul breathing Review of Systems Review of Systems: unable to obtain Physical Exam Physical Exam: The patient is no longer responsive,Kussmaul breathing HEENT--PERRL, EOMI, mucous membranes and oropharynx mildly dry Neck--supple. No JVD. No bruits. Thyroid normal, trachea midline, no adenopathy. Heart--normal S1 and S2. No murmurs, rubs or gallops. Lungs--in respiratory distress Abdomen--normal bowel sounds and soft. Extremities--no cyanosis or clubbing. No edema. Dermatologic--normal skin turgor, normal color, no abnormal lymph nodes, no rash. Neurologic--unable to fully assess Rheumatologic--unable to fully assess Psychiatric--unresponsive. PG Care Time/CCT Total # of Minutes Spent Total Time Spent with Patient: Total time spent is greater than 50% in coordination of care (as documented) at patient's floor/unit and/or counseling patient: Coding Level of Care Code 75036 SUB INP/OBS CARE 2/35MIN Diagnoses MDS (myelodysplastic syndrome) D46.9 Pancytopenia D61.818 Acute on chronic anemia D64.9 Thrombocytopenia D69.6 Atrial fibrillation, permanent I48.21 Diarrhea R19.7 Diarrhea type: unspecified type Chronic respiratory failure with hypoxia J96.11 Stage 3 chronic kidney disease N18.3 CHF (congestive heart failure) I50.9 Heart failure chronicity: acute Heart failure type: unspecified Chronic obstructive pulmonary disease J44.9 History of stroke Z86.73 History of breast cancer Z85.3 Weakness R53.1 Non-Hodgkin lymphoma C85.90 Candidiasis of mouth and esophagus B37.81; B37.0 Restless leg syndrome G25.81 UTI (urinary tract infection) N39.0 Insomnia G47.00 Time Spent (min) 35 (6) Diarrhea Diarrhea type: unspecified type Qualified Code(s): R19.7 - Diarrhea, unspecified (9) CHF (congestive heart failure) Heart failure chronicity: acute Heart failure type: unspecified Qualified Code(s): I50.9 - Heart failure, unspecified
--- NOTE | 2022-09-08 12:18 | Death Pronouncement Note ---
Date of Service September 08, 2022 Pronouncement Note Admission Date Admission Date: August 31, 2022 Date and Time of Date of : 09/08/22 Time of : 11:45 Contributing Factors (1) MDS (myelodysplastic syndrome): (2) Pancytopenia: (3) Acute on chronic anemia: (4) Thrombocytopenia: (5) Atrial fibrillation, permanent: (6) Diarrhea: (7) Chronic respiratory failure with hypoxia: (8) Stage 3 chronic kidney disease: (9) CHF (congestive heart failure): (10) Chronic obstructive pulmonary disease: (11) History of stroke: (12) History of breast cancer: (13) Weakness: (14) Non-Hodgkin lymphoma: (15) Candidiasis of mouth and esophagus: (16) Restless leg syndrome: (17) UTI (urinary tract infection): (18) Insomnia: Additional Data Attending physician: Chastity Herrera MD Coding Level of Care Code None Diagnoses MDS (myelodysplastic syndrome) D46.9 Pancytopenia D61.818 Acute on chronic anemia D64.9 Thrombocytopenia D69.6 Atrial fibrillation, permanent I48.21 Diarrhea R19.7 Diarrhea type: unspecified type Chronic respiratory failure with hypoxia J96.11 Stage 3 chronic kidney disease N18.3 CHF (congestive heart failure) I50.9 Heart failure chronicity: acute Heart failure type: unspecified Chronic obstructive pulmonary disease J44.9 History of stroke Z86.73 History of breast cancer Z85.3 Weakness R53.1 Non-Hodgkin lymphoma C85.90 Candidiasis of mouth and esophagus B37.81; B37.0 Restless leg syndrome G25.81 UTI (urinary tract infection) N39.0 Insomnia G47.00 Time Spent (min) 10
--- NOTE | 2022-09-08 12:23 | Discharge Summary ---
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 She has recent history of worsening thrombocytopenia and anemia with a recent hospitalization at [facility] [address] 08/14-08/23. She reports she was taken via EMS to [facility] d/t complaints of shortness of breath. She notes that during that admission, she had a blood count of 7.7 and a platelet count of 25. She was transfused one unit of packed cells and one unit of platelets. She was also trialed on Dexamethasone and IVIG w/o improvement in her platelets. She subsequently underwent a bone marrow biopsy on 08/22 but at time of discharge did not have all of the results back yet. She was encouraged to follow up with hematology locally at [facility]. She has seen Dr. Luis in the past and was to see her as an outpatient but missed her appointment due to coming into the hospital. She notes that since her discharge, she has been progressively more weak, fatigued, poor appetite, and short of breath with exertion. She has been chewing on ice chips a lot as well. She denies chest pain or dyspnea at resent. Has had some nausea but no overt belly pain. She notes that she has chronic diarrhea, was diagnosed with IBS years ago, but doesn't routinely follow with GI. Last EGD/[place] was done in 2020 due to rectal bleeding w/o obvious identified source. During her stay at [facility], she was noted to have grossly bloody BM but did not undergo EGD/[place] during that stay. Since her return home, she has not noticed any gross/rhianna blood per rectum. She denies fever/chills. She is chronically on 3L of O2 d/t ILD/COPD. Her work up this afternoon demonstrates a hgb of 6.0 and platelet count of 21,000. She has been typed and crossmatched for 2units of PRBCs by the ER physician and was given a 500 cc bolus of NSS due to a marginal BP of 96/52 and slightly tachycardic in the 110s. Hospitalists have been contacted for admission for further evaluation. Principal Diagnosis MDS, Discharge Exam HEENT--pupils fixed and dilated Neck-- Heart--no heart sounds. Lungs-no breath sounds Abdomen--no sound Extremities--cyanosed Dermatologic--pale Neurologic--non responsive Rheumatologic-- Discharge Data Allergies Allergy/AdvReac Type Severity Reaction Status Date / Time dexamethasone Allergy Severe Shortness Verified 08/31/22 11:41 of Breath, throat constriction Sulfa (Sulfonamide Allergy Severe HIVES Verified 08/31/22 11:41 Antibiotics) adhesive tape Allergy Intermediate redness, Verified 08/31/22 11:41 irritation, peels skin off amoxicillin Allergy Unknown hives Verified 08/31/22 11:41 azithromycin Allergy Unknown Hives Verified 08/31/22 11:41 [From Zithromax Z-Siddhartha] clavulanic acid Allergy Unknown hives Verified 08/31/22 11:41 meperidine Allergy Unknown HIVES Verified 08/31/22 11:41 Penicillins Allergy Unknown hives Verified 08/31/22 11:41 cephalexin [From Keflex] Allergy Verified 08/31/22 11:41 ciprofloxacin [From Cipro] AdvReac Severe Vomiting Verified 08/31/22 11:41 codeine AdvReac Unknown NAUSEA AND Verified 08/31/22 11:41 VOMITING ketorolac AdvReac Unknown 'increased Verified 08/31/22 11:41 bleeding' Consultations 08/31/22 15:10 ED Decision to Admit Stat 08/31/22 19:00 Consult Gastroenterology Routine Consult Hematology Routine 09/02/22 22:48 Consult Palliative Care Routine 09/04/22 10:06 Consult Palliative Care Routine Hospital Course (1) MDS (myelodysplastic syndrome): s/p BMB at [facility] poor performance/functional status had been transfused blood and platelets, following these infusions the patient declines future transfusion patient wishing to transition to hospice, she is currently comfort care appreciate palliative care consultation and assistance She is now unresponsive, with kussmaul breathing, (2) Pancytopenia: 2nd to MDS could be a component of nutritional def as well but b12/folate both wnl TSH wnl no further blood work she is comfort care She is now unresponsive, with kussmaul breathing, (3) Acute on chronic anemia: no further cbc checks, she is comfort care She is now unresponsive, with kussmaul breathing, (4) Thrombocytopenia: Noted platelet count of 110 in March 2022 and 92 in Jul 2022 Acute drop to 25,000 in Aug 2022, underwent BM biopsy at [facility] - concerning for MDS was treated for ITP at [facility] without any change in status (IVIG, etc) No further blood draws, she is now comfort care Palliative on consult (5) Atrial fibrillation, permanent: (6) Diarrhea: (7) Chronic respiratory failure with hypoxia: (8) Stage 3 chronic kidney disease: stable (9) CHF (congestive heart failure): compensated (10) Chronic obstructive pulmonary disease: (11) History of stroke: (12) History of breast cancer: (13) Weakness: 2nd to new onset MDS with severe anemia etc (14) Non-Hodgkin lymphoma: history of -- 2017 (15) Candidiasis of mouth and esophagus: nystatin lux 5cc qid (16) Restless leg syndrome: cont mirapex (17) UTI (urinary tract infection): (18) Insomnia: Plan Total Time Total Time Spent Total Time Spent (In Minutes): 30 Discharge Plan Discharge Items Patient Disposition: Reason For Visit: ACUTE ON CHRONIC ANEMIA Condition on Discharge: Fair Follow-up/Referrals: Li Miner MD [Primary Care Provider] - Medications and DC Order Prescriptions: No Action (DME) Oxygen Home Liters Per Minute See Rx Instructions .Route Qty: 1 0RF Rx Instructions: Titrate oxygen to maintain O2 Sats obove 88% Myrbetriq 50 mg tablet extended release 24 hr 50 mg PO HS Qty: 90 3RF potassium chloride 10 mEq tablet,ER particles/crystals 20 meq PO QAM loperamide 2 mg capsule 2 mg PO Q4H PRN (Reason: diarrhea) Qty: 30 3RF furosemide 40 mg tablet 40 mg PO BID Qty: 60 3RF (DME) elevated toilet seat frame See Rx Instructions .Route .MEDSUPPLY Qty: 1 0RF Rx Instructions: As directed pantoprazole 40 mg tablet,delayed release (DR/EC) 40 mg PO AMHS Qty: 60 3RF Anbesol (benzocaine) Max Str 20 % liquid 1 ea mucous membrane UD PRN (Reason: mouth sores) Rx Instructions: apply to the mouth or throat as needed for mouth/lip sores metoprolol tartrate 25 mg tablet 25 mg PO AMHS acetaminophen [Tylenol Extra Strength] 500 mg tablet 500 mg PO HS cinnamon bark 500 mg capsule 1,000 mg PO QAM cholecalciferol (vitamin D3) 1,000 unit tablet 1,000 units PO QAM cyanocobalamin (vitamin B-12) 1,000 mcg capsule 1,000 mcg PO HS budesonide 0.5 mg/2 mL suspension for nebulization 0.5 mg inhalation BID PRN (Reason: Shortness Of Breath Or Wheezing) Stiolto Respimat 2.5-2.5 mcg/actuation mist 2 puff inhalation QAM albuterol sulfate [Ventolin HFA] 90 mcg/actuation HFA aerosol inhaler 2 puff inhalation Q6 PRN (Reason: shortness of breath or wheezing) calcium carbonate-vitamin D3 600 mg-5 mcg (200 unit) Tablet 1 tab PO QAM ondansetron 4 mg tablet,disintegrating 4 mg translingual Q8 PRN (Reason: Nausea) omega-3 fatty acids 1,000 mg Capsule 1,000 mg PO QAM benzonatate 100 mg Capsule 100 mg PO TID mometasone 50 mcg/actuation [place],Non-Aerosol 2 spray INTRANASAL DAILY Rx Instructions: administer into each nostril ipratropium-albuterol 0.5 mg-3 mg(2.5 mg base)/3 mL solution for nebulization 3 ml inhalation Q4H PRN (Reason: Shortness Of Breath Or Wheezing) Salonpas 3.1-10-6 % Adhesive Patch,Medicated 1 patch TOPICAL DAILY Rx Instructions: apply to bilateral shoulder every morning and remove at bedtime Admission Data Admit Date/Time: 08/31/22 16:07 Attending Provider: Chastity Herrera Admit Provider: Domenico Londono Primary Care Provider: Li Miner Other Providers: Domenico Londono ; Ilan Allen ; Aisha Luis ; Kerline Watters ; Amy Sal Coding Level of Care Code None Diagnoses MDS (myelodysplastic syndrome) D46.9 Pancytopenia D61.818 Acute on chronic anemia D64.9 Thrombocytopenia D69.6 Atrial fibrillation, permanent I48.21 Diarrhea R19.7 Diarrhea type: unspecified type Chronic respiratory failure with hypoxia J96.11 Stage 3 chronic kidney disease N18.3 CHF (congestive heart failure) I50.9 Heart failure chronicity: acute Heart failure type: unspecified Chronic obstructive pulmonary disease J44.9 History of stroke Z86.73 History of breast cancer Z85.3 Weakness R53.1 Non-Hodgkin lymphoma C85.90 Candidiasis of mouth and esophagus B37.81; B37.0 Restless leg syndrome G25.81 UTI (urinary tract infection) N39.0 Insomnia G47.00 Time Spent (min) 35
== END 2022-09-08 13:25 | disposition expired | DRG 811 ==
LOC: ED 12:41 → 2N 16:07 → SUATTDRO 16:07 → 2N 17:39 → 3E 09-02 18:08